=== PATIENT | male | born 1955 | race Caucasian/White ===

== ENCOUNTER 2016-03-26 12:25 | Emergency (ER) | payer BC ==
[2016-03-26] MEDS ORDERED: predniSONE 20 MG TABLET PO STA (15:09)
[2016-03-26] MEDS ORDERED: DOXYCYCLINE 100 MG TABLET PO STA (15:09)
[2016-03-26] MEDS ORDERED: DOXYCYCLINE 100 MG TABLET PO ONE (15:15)
[2016-03-26] MEDS ORDERED: predniSONE 20 MG TABLET ONE (15:15)
== END 2016-03-26 15:19 | disposition home or self-care (01) ==
DX: J18.9 Pneumonia, unspecified organism (principal); J44.9 Chronic obstructive pulmonary disease, unspecified; F17.200 Nicotine dependence, unspecified, uncomplicated; J45.909 Unspecified asthma, uncomplicated
CPT/HCPCS: 71020; 99283; 99284; A9270; J7512

== ENCOUNTER 2016-07-10 16:37 | Outpatient (CLI) | payer BC | END 2016-07-10 16:38 | disposition home or self-care (01) | DX: Z00.00 Encounter for general adult medical examination without abnormal findings (principal); Z12.5 Encounter for screening for malignant neoplasm of prostate; N40.1 Benign prostatic hyperplasia with lower urinary tract symptoms ==

== ENCOUNTER 2016-11-15 08:09 | Outpatient (CLI) | payer BC ==
--- NOTE | 2016-11-15 11:13 | XRAY Report ---
TWO VIEW CHEST: 11/15/2016 CLINICAL INDICATION: Nonspecific reaction to gamma Interferon. COMPARISON: 05/22/2016. FINDINGS: Frontal and lateral views of the chest demonstrate a normal cardiac silhouette. Extensive emphysematous changes with bibasilar fibrosis are stable, as are changes of old granulomatous disease . No new consolidation, effusion, or pneumothorax is evident. IMPRESSION: STABLE EMPHYSEMA AND FIBROSIS. NO EVIDENCE OF ACUTE CARDIOPULMONARY DISEASE. NO EVIDENCE OF ACTIVE TUBERCULOSIS. JOB #: [id number] EXT JOB #:[id number]
== END 2016-11-15 08:10 | disposition home or self-care (01) ==
LOC: DI.N 08:09
DX: R76.12 Nonspecific reaction to cell mediated immunity measurement of gamma interferon antigen response without active tuberculosis (principal); J43.9 Emphysema, unspecified; J84.10 Pulmonary fibrosis, unspecified
CPT/HCPCS: 71020

== ENCOUNTER 2017-05-15 08:00 | Outpatient (CLI) | payer BC ==
[2017-05-15 12:52] LABS: BASOPHILS # (AUTO) 0.1 10^3/uL (0.0-0.1); BASOPHILS % (AUTO) 0.9 %; EOSINOPHILS # (AUTO) 0.4 10^3/uL (0.0-0.7); EOSINOPHILS % (AUTO) 2.7 %; HGB - HEMOGLOBIN 16.8 g/dL (14.0-18.0); LYMPHOCYTES # (AUTO) 2.4 10^3/uL (1.5-3.5); LYMPHOCYTES % (AUTO) 16.4 %; MEAN CORPUSCULAR HGB CONC 33.7 g/dL (32.0-36.0); MEAN PLATELET VOLUME 8.2 fL (7.4-11.4); MONOCYTES # (AUTO) 1.6 10^3/uL (0.0-1.0); MONOCYTES % (AUTO) 11.1 %; NEUTROPHILS # (AUTO) 10.1 10^3/uL (1.5-6.6); NEUTROPHILS % (AUTO) 68.9 %; PLT - PLATELET COUNT 411 10^3/uL (130-450); RED BLOOD COUNT 5.61 10^6/uL (4.70-6.10); RED CELL DISTRIBUTION WIDTH 14.6 % (12.0-15.0); WHITE BLOOD COUNT 14.6 x10^3/uL (4.8-10.8)
[2017-05-15 14:03] LABS: ALBUMIN 4.5 g/dL (3.2-5.5); ALBUMIN/GLOBULIN RATIO 1.4 (1.0-2.2); ALKALINE PHOSPHATASE 66 IU/L (42-121); ALT ALANINE AMINOTRANSFERASE 19 IU/L (10-60); AST ASPARTATE AMINOTRANSFERASE 16 IU/L (10-42); BUN - BLOOD UREA NITROGEN 13 mg/dL (6-20); CALCIUM 9.2 mg/dL (8.5-10.3); CARBON DIOXIDE - CO2 25 mmol/L (21-32); CHLORIDE 101 mmol/L (101-111); CHOLESTEROL 227 mg/dL; CREATININE 0.8 mg/dL (0.6-1.2); GFR - MDRD 98 (>89); GLUCOSE 102 mg/dL (70-100); HDL CHOLESTEROL 57 mg/dL; LDL CHOLESTEROL,CALCULATED 147 mg/dL; LDL/HDL RATIO 2.6 (<3.6); SODIUM 136 mmol/L (135-145); TOTAL PROTEIN 7.7 g/dL (6.7-8.2); VLDL CHOLESTEROL 23 mg/dL
[2017-05-15 14:13] LABS: ABNORMAL LYMPHS % (MANUAL) 0 %; BAND NEUTROPHILS % (MANUAL) 0 %
[2017-05-15 14:28] LABS: BASOPHILS # (MANUAL) 0.1 10^3/uL (0-0.1); BASOPHILS % (MANUAL) 1 %; EOSINOPHILS # (MANUAL) 0.1 10^3/uL (0-0.7); LYMPHOCYTES # (MANUAL) 3.1 10^3/uL (1.5-3.5); LYMPHOCYTES % (MANUAL) 21 %; MONOCYTES # (MANUAL) 1.5 10^3/uL (0.0-1.0); NEUTROPHILS # (MANUAL) 9.8 10^3/uL (1.5-6.6); NEUTROPHILS % (MANUAL) 67 %; PLATELET ESTIMATE, MANUAL NORMAL (130-450,000) (NORMAL); PLATELET MORPHOLOGY NORMAL APPEARANCE (NORMAL); RBC MORPHOLOGY (MULTIPLE) NORMAL APPEARANCE (NORMAL)
== END 2017-05-15 08:01 | disposition home or self-care (01) ==
LOC: LAB.WCP 08:00
PROVIDERS: ATTEND Family Medicine
DX: Z00.00 Encounter for general adult medical examination without abnormal findings (principal); D72.829 Elevated white blood cell count, unspecified; R97.20 Elevated prostate specific antigen [PSA]
CPT/HCPCS: 36415; 80053; 80061; 83721; 84153; 85025

== ENCOUNTER 2017-06-15 08:00 | Outpatient (CLI) | payer BC ==
[2017-06-15 18:47] LABS: BASOPHILS # (AUTO) 0.1 10^3/uL (0.0-0.1); BASOPHILS % (AUTO) 1.3 %; EOSINOPHILS # (AUTO) 0.3 10^3/uL (0.0-0.7); EOSINOPHILS % (AUTO) 2.8 %; HGB - HEMOGLOBIN 16.4 g/dL (14.0-18.0); LYMPHOCYTES # (AUTO) 2.3 10^3/uL (1.5-3.5); LYMPHOCYTES % (AUTO) 21.7 %; MEAN CORPUSCULAR HEMOGLOBIN 29.6 pg (27.0-31.0); MEAN CORPUSCULAR HGB CONC 33.1 g/dL (32.0-36.0); MEAN CORPUSCULAR VOLUME 89.6 fL (80.0-94.0); MEAN PLATELET VOLUME 7.7 fL (7.4-11.4); MONOCYTES # (AUTO) 1.3 10^3/uL (0.0-1.0); MONOCYTES % (AUTO) 12.3 %; NEUTROPHILS # (AUTO) 6.7 10^3/uL (1.5-6.6); NEUTROPHILS % (AUTO) 61.9 %; PLT - PLATELET COUNT 382 10^3/uL (130-450); RED BLOOD COUNT 5.53 10^6/uL (4.70-6.10); RED CELL DISTRIBUTION WIDTH 14.9 % (12.0-15.0); WHITE BLOOD COUNT 10.8 x10^3/uL (4.8-10.8)
[2017-06-15 19:01] LABS: ALBUMIN 4.3 g/dL (3.2-5.5); ALBUMIN/GLOBULIN RATIO 1.4 (1.0-2.2); CREATININE 0.8 mg/dL (0.6-1.2); TOTAL PROTEIN 7.3 g/dL (6.7-8.2)
[2017-06-15 19:17] LABS: THYROID STIMULATING HORMONE 1.88 uIU/mL (0.34-5.60)
[2017-06-15 19:45] LABS: FOLLICLE STIMULATING HORMONE 2.86 mIU/mL
[2017-06-15 19:46] LABS: LUTEINIZING HORMONE 3.56 mIU/mL
== END 2017-06-15 08:01 | disposition home or self-care (01) ==
LOC: LAB.WCP 08:00
PROVIDERS: ATTEND Family Medicine
DX: F64.9 Gender identity disorder, unspecified (principal)
CPT/HCPCS: 36415; 80053; 82670; 83001; 83002; 84443; 85025

== ENCOUNTER 2017-08-20 08:00 | Outpatient (CLI) | payer BC ==
[2017-08-20 13:43] LABS: ALBUMIN 4.1 g/dL (3.2-5.5); ALBUMIN/GLOBULIN RATIO 1.2 (1.0-2.2); BILIRUBIN,TOTAL 0.6 mg/dL (0.2-1.0); CALCIUM 9.3 mg/dL (8.5-10.3); CREATININE 0.9 mg/dL (0.6-1.2); TOTAL PROTEIN 7.4 g/dL (6.7-8.2)
[2017-08-20 13:58] LABS: PSA TOTAL 6.25 ng/mL (0.000-2.000)
== END 2017-08-20 08:01 | disposition home or self-care (01) ==
LOC: LAB.WCP 08:00
PROVIDERS: ATTEND Family Medicine
DX: F64.9 Gender identity disorder, unspecified (principal); C61 Malignant neoplasm of prostate
CPT/HCPCS: 36415; 80053; 84153; 84403

== ENCOUNTER 2017-09-26 09:45 | Outpatient (CLI) | payer BC ==
--- NOTE | 2017-09-28 15:09 | Mammography Report ---
Procedure Date: 09/26/2017 Accession Number: [id number] / [id number] Procedure: KARLA - Screening Mammo Dig Bilat CPT Code: FULL RESULT: EXAM: Screening Mammo Dig Bilat DATE: 09/26/2017 10:00 AM CLINICAL HISTORY: 62-year-old male born patient with personal history of prostate cancer, lung disease at age 54, 10 years of steroid use, and 6 months of testosterone inhibitors currently undergoing gender reassignment with family history of breast cancer in the mother at age 40 presents for baseline mammogram. TECHNIQUE: Bilateral CC and MLO views were obtained. COMPARISON: None FINDINGS: The breasts demonstrate heterogeneously dense fibroglandular parenchyma bilaterally. Course typically benign bilateral calcifications are identified. No suspicious masses, clustered microcalcifications, or regions of architectural distortion are identified. IMPRESSION: Benign findings RECOMMENDATION: Routine annual screening unless otherwise clinically indicated. BIRADS CATEGORY 2: Benign findings STANDARD QUALIFYING STATEMENTS: 1. This examination was reviewed with the aid of Computer-Aided Detection (CAD). 2. A negative or benign imaging report should not delay biopsy if clinically suspicious findings are present. Consider surgical consultation if warrented. More than 5% of cancers are not identified by imaging. 3. Dense breasts may obscure an underlying neoplasm.
== END 2017-09-26 09:46 | disposition home or self-care (01) ==
LOC: DI 09:45
PROVIDERS: ATTEND Family Medicine
DX: Z12.31 Encounter for screening mammogram for malignant neoplasm of breast (principal); Z79.890 Hormone replacement therapy; Z78.9 Other specified health status; Z85.46 Personal history of malignant neoplasm of prostate
CPT/HCPCS: 77067

== ENCOUNTER 2018-02-20 08:00 | Outpatient (CLI) | payer BC ==
[2018-02-20 20:04] LABS: BASOPHILS # (AUTO) 0.1 10^3/uL (0.0-0.1); BASOPHILS % (AUTO) 0.8 %; EOSINOPHILS # (AUTO) 0.5 10^3/uL (0.0-0.7); EOSINOPHILS % (AUTO) 4.6 %; HGB - HEMOGLOBIN 15.4 g/dL (14.0-18.0); LYMPHOCYTES # (AUTO) 1.7 10^3/uL (1.5-3.5); LYMPHOCYTES % (AUTO) 14.6 %; MEAN CORPUSCULAR HEMOGLOBIN 30.8 pg (27.0-31.0); MEAN CORPUSCULAR HGB CONC 32.9 g/dL (32.0-36.0); MEAN CORPUSCULAR VOLUME 93.4 fL (80.0-94.0); MEAN PLATELET VOLUME 7.9 fL (7.4-11.4); MONOCYTES % (AUTO) 8.9 %; NEUTROPHILS # (AUTO) 8.3 10^3/uL (1.5-6.6); NEUTROPHILS % (AUTO) 71.1 %; PLT - PLATELET COUNT 377 10^3/uL (130-450); RED BLOOD COUNT 4.99 10^6/uL (4.70-6.10); RED CELL DISTRIBUTION WIDTH 14.2 % (12.0-15.0); WHITE BLOOD COUNT 11.7 x10^3/uL (4.8-10.8)
[2018-02-20 20:32] LABS: PSA TOTAL 8.41 ng/mL (0.000-2.000)
[2018-02-20 20:36] LABS: ALBUMIN 4.2 g/dL (3.2-5.5); ALBUMIN/GLOBULIN RATIO 1.6 (1.0-2.2); CALCIUM 9.1 mg/dL (8.5-10.3); TOTAL PROTEIN 6.9 g/dL (6.7-8.2)
== END 2018-02-20 23:59 | disposition home or self-care (01) ==
LOC: LAB.WCP 08:00
PROVIDERS: ATTEND Family Medicine
DX: R10.31 Right lower quadrant pain (principal); F64.9 Gender identity disorder, unspecified; C61 Malignant neoplasm of prostate
CPT/HCPCS: 36415; 80053; 82670; 84153; 84403; 85025

== ENCOUNTER 2018-02-28 10:39 | Outpatient (CLI) | payer BC ==
[2018-02-28] MEDS ORDERED: IOVERSOL 320 50 ML VIAL ONE (10:56)
[2018-02-28] MEDS ORDERED: IOVERSOL 320 100 ML VIAL IVP ONE ×2 (10:56→13:01)
[2018-02-28] MEDS ORDERED: IOVERSOL 320 50 ML VIAL PO ONE (13:01)
--- NOTE | 2018-02-28 19:53 | CT Report ---
Reason: ABDOMINAL PAIN, RLQ, PROSTATE CANCER Procedure Date: 02/28/2018 Accession Number: [id number] / [id number] Procedure: CT - Abdomen/Pelvis W/ CPT Code: FULL RESULT: EXAM: CT ABDOMEN AND PELVIS EXAM DATE: 02/28/2018 12:10 PM. CLINICAL HISTORY: Abdominal pain, right lower quadrant, prostate cancer. COMPARISONS: None. TECHNIQUE: Routine helical CT imaging was performed through the abdomen and pelvis. IV contrast: Optiray-320 90 mL. Enteric contrast: No. Reconstructions: Coronal and sagittal. In accordance with CT protocol optimization, one or more of the following dose reduction techniques were utilized for this exam: automated exposure control, adjustment of mA and/or KV based on patient size, or use of iterative reconstructive technique. FINDINGS: Lung Bases: Subpleural emphysematous changes seen at the lung bases. There is also left lower lobe atelectasis and/or scarring. Liver: Normal. No masses. Gallbladder/Bile Ducts: Gallstones noted without evidence of cholecystitis or bile duct obstruction. Spleen: Normal. Pancreas: Normal. Adrenal Glands: Normal. Kidneys: 7.2 cm cyst at the upper pole of the left kidney. Smaller cysts noted inferiorly. No suspicious renal mass or hydronephrosis. Peritoneal Cavity/Bowel: Large bowel diverticulosis without diverticulitis. No bowel obstruction, free air or fluid collections. No evidence of appendicitis. Pelvic Organs: Normal. The bladder and visualized pelvic organs are within normal limits. Vasculature: No aneurysms or other significant abnormality. Bones: No significant abnormality. Other: None. IMPRESSION: 1. Diverticulosis without diverticulitis. 2. Cholelithiasis. 3. No evidence of metastatic disease. RADIA
== END 2018-02-28 10:40 | disposition home or self-care (01) ==
LOC: DI 10:39
PROVIDERS: ATTEND Family Medicine
DX: K57.30 Diverticulosis of large intestine without perforation or abscess without bleeding (principal); K80.20 Calculus of gallbladder without cholecystitis without obstruction; R10.31 Right lower quadrant pain; C61 Malignant neoplasm of prostate
CPT/HCPCS: 74177; Q9967

== ENCOUNTER 2018-06-03 13:38 | Outpatient (CLI) | payer BC ==
[2018-06-03 19:12] LABS: TESTOSTERONE, TOTAL 19 ng/dL (350-720)
[2018-06-03 19:19] LABS: PSA TOTAL < 0.008 ng/mL (0.000-2.000)
== END 2018-06-03 13:39 | disposition home or self-care (01) ==
LOC: LAB.WCP 13:38
PROVIDERS: ATTEND Family Medicine
DX: Z79.890 Hormone replacement therapy (principal); C61 Malignant neoplasm of prostate
CPT/HCPCS: 36415; 82670; 84153; 84403

== ENCOUNTER 2018-08-21 07:34 | Day surgery (SDC) | payer BC ==
[2018-08-21] MEDS ORDERED: LACTATED RINGERS 1,000 ML IV ONE ×2 (08:00→10:18)
[2018-08-21] MEDS ORDERED: fentaNYL 250 MCG/5 ML VIAL IVP ONE (09:47)
[2018-08-21] MEDS ORDERED: MIDAZOLAM 2 MG/2 ML VIAL IVP ONE (09:47)
[2018-08-21 11:55] VITALS: BP 142/82
== END 2018-08-21 07:35 | disposition home or self-care (01) ==
LOC: SDS 07:34
PROVIDERS: ATTEND Surgery
PROC: 0DBN8ZZ Excision of Sigmoid Colon, Via Natural or Artificial Opening Endoscopic (ICD-10-PCS; 2018-08-21)
PROC: 0DBK8ZZ Excision of Ascending Colon, Via Natural or Artificial Opening Endoscopic (ICD-10-PCS; 2018-08-21)
PROC: 0DBL8ZZ Excision of Transverse Colon, Via Natural or Artificial Opening Endoscopic (ICD-10-PCS; 2018-08-21)
PROC: 0DBM8ZZ Excision of Descending Colon, Via Natural or Artificial Opening Endoscopic (ICD-10-PCS; 2018-08-21)
PROC: 0DBK8ZZ Excision of Ascending Colon, Via Natural or Artificial Opening Endoscopic (ICD-10-PCS; principal; 2018-08-21 08:45)
DX: Z12.11 Encounter for screening for malignant neoplasm of colon (principal); D12.2 Benign neoplasm of ascending colon; D12.4 Benign neoplasm of descending colon; D12.3 Benign neoplasm of transverse colon; K63.5 Polyp of colon; J44.9 Chronic obstructive pulmonary disease, unspecified; K43.2 Incisional hernia without obstruction or gangrene; F17.200 Nicotine dependence, unspecified, uncomplicated; Z85.46 Personal history of malignant neoplasm of prostate
CPT/HCPCS: 45380; 45385; J3010; J7120

== ENCOUNTER 2018-08-26 13:24 | Outpatient (CLI) | payer BC ==
[2018-08-26 19:13] LABS: TESTOSTERONE, TOTAL 13 ng/dL (350-720)
[2018-08-26 19:22] LABS: PSA TOTAL < 0.008 ng/mL (0.000-2.000)
== END 2018-08-26 13:25 | disposition home or self-care (01) ==
LOC: LAB.WCP 13:24
PROVIDERS: ATTEND Family Medicine
DX: C61 Malignant neoplasm of prostate (principal); F64.9 Gender identity disorder, unspecified; Z79.890 Hormone replacement therapy
CPT/HCPCS: 36415; 82670; 84153; 84403

== ENCOUNTER 2018-12-25 08:00 | Outpatient (CLI) | payer BC | END 2018-12-25 23:59 | disposition home or self-care (01) | LOC: LAB.R 08:00 | PROVIDERS: ATTEND Nurse Practitioner Family | DX: L03.311 Cellulitis of abdominal wall (principal) ==

== ENCOUNTER 2019-01-08 08:00 | Outpatient (CLI) | payer BC ==
[2019-01-08 19:00] LABS: BASOPHILS # (AUTO) 0.2 10^3/uL (0.0-0.1); BASOPHILS % (AUTO) 1.6 %; EOSINOPHILS # (AUTO) 0.5 10^3/uL (0.0-0.7); EOSINOPHILS % (AUTO) 4.3 %; LYMPHOCYTES # (AUTO) 1.7 10^3/uL (1.5-3.5); LYMPHOCYTES % (AUTO) 15.5 %; MEAN CORPUSCULAR HEMOGLOBIN 30.4 pg (27.0-31.0); MEAN CORPUSCULAR HGB CONC 32.2 g/dL (32.0-36.0); MEAN CORPUSCULAR VOLUME 94.3 fL (80.0-94.0); MEAN PLATELET VOLUME 9.9 fL (7.4-11.4); MONOCYTES # (AUTO) 1.2 10^3/uL (0.0-1.0); MONOCYTES % (AUTO) 11.3 %; NEUTROPHILS # (AUTO) 7.2 10^3/uL (1.5-6.6); NEUTROPHILS % (AUTO) 66.8 %; PLT - PLATELET COUNT 431 10^3/uL (130-450); RED BLOOD COUNT 4.94 10^6/uL (4.70-6.10); RED CELL DISTRIBUTION WIDTH 14.6 % (12.0-15.0); WHITE BLOOD COUNT 10.8 x10^3/uL (4.8-10.8)
[2019-01-08 19:15] LABS: ALBUMIN 4.5 g/dL (3.2-5.5); ALBUMIN/GLOBULIN RATIO 1.5 (1.0-2.2); BILIRUBIN,TOTAL 0.6 mg/dL (0.2-1.0); CALCIUM 8.9 mg/dL (8.5-10.3); TOTAL PROTEIN 7.5 g/dL (6.7-8.2)
[2019-01-08 19:23] LABS: TESTOSTERONE, TOTAL 59 ng/dL (350-720)
[2019-01-08 19:32] LABS: PSA SCREEN (Z12.5) < 0.008 ng/mL (0.000-2.000)
== END 2019-01-08 23:59 | disposition home or self-care (01) ==
LOC: LAB.WCP 08:00
PROVIDERS: ATTEND Family Medicine
DX: C61 Malignant neoplasm of prostate (principal); R60.9 Edema, unspecified; F64.9 Gender identity disorder, unspecified; Z79.890 Hormone replacement therapy
CPT/HCPCS: 36415; 80053; 82670; 84153; 84403; 85025

== ENCOUNTER 2019-01-22 15:05 | Outpatient (CLI) | payer BC ==
--- NOTE | 2019-01-22 16:52 | CT Report ---
Reason: SMOKER Procedure Date: 01/22/2019 Accession Number: [id number] / [id number] Procedure: CT - Low Dose Lung Cancer Screen CPT Code: Final Report FULL RESULT: EXAM CT LUNG SCREEN EXAM DATE: 01/22/2019 03:12 PM. HISTORY: 63-year-old male smoker with unspecified pack year smoking history. Lung cancer screening requested. COMPARISON: CHEST 04/09/2009 8:56 AM. TECHNIQUE: CT examination of the entire thorax without contrast was performed using low-dose technique. Thin section coronal, axial, sagittal and MIP axial images were obtained. In accordance with CT protocol optimization, one or more of the following dose reduction techniques were utilized for this exam: automated exposure control, adjustment of mA and/or KV based on patient size, or use of iterative reconstructive technique. FINDINGS: Nodules: Right upper lobe: None. Right middle lobe: None. Right lower lobe: None. Left upper lobe: None. Left lower lobe: None. Emphysema: Severe bullous emphysema present about the right greater than left upper lobes and to a lesser degree the lower lobes. No significant interval change. Pleura: No effusions or pneumothorax. A small left effusion seen previously has resolved. Aorta: Unremarkable. Mediastinum: No medicinal mass or adenopathy evident. There is narrowing of the mediastinum secondary to hyperinflation. Coronary calcifications: Minimal. Other pulmonary findings: Left great than right basilar peripheral scarring present similar to prior exam. Small peripheral scars are also present diffusely throughout the mean of the lungs as before. Other extrapulmonary findings: A small portion of the upper abdomen was visualized and demonstrates an enlarging cystic lesion of the left upper pole kidney measuring up to 6.9 cm increased from 2.5 cm previously. It measures approximately 22 Hounsfield units in density, slightly hyperdense as before. IMPRESSION: 1. Lung-RADS ASSESSMENT CATEGORY: 1 - negative. No concerning pulmonary nodules identified. Probability of malignancy: Less than 1%. 2. Severe bullous emphysema as before. 3. Interval resolution of small left pleural effusion. 4. Significant interval enlargement of partially visualized left upper pole cystic lesion from 2.5-6.9 cm. It is again mildly hyperdense. Further evaluation with renal ultrasound could be considered. RECOMMENDATION: Recommended follow up in 12 months based on ACR Lung-RADS Version 1.1 Guidelines. RADIA
== END 2019-01-22 15:06 | disposition home or self-care (01) ==
LOC: DI 15:05
PROVIDERS: ATTEND Family Medicine
DX: Z12.2 Encounter for screening for malignant neoplasm of respiratory organs (principal); J43.9 Emphysema, unspecified; N28.9 Disorder of kidney and ureter, unspecified; F17.210 Nicotine dependence, cigarettes, uncomplicated

== ENCOUNTER 2019-02-02 16:17 | Outpatient (CLI) | payer BC ==
--- NOTE | 2019-02-03 00:38 | Ultrasound Report ---
Reason: COMPLEX RENAL CYST Procedure Date: 02/02/2019 Accession Number: [id number] / [id number] Procedure: US - Retroperitoneal CPT Code: Final Report FULL RESULT: EXAM: RENAL ULTRASOUND EXAM DATE: 02/02/2019 05:18 PM. CLINICAL HISTORY: COMPLEX RENAL CYST. COMPARISON: None. TECHNIQUE: Real-time scanning was performed with static images obtained. FINDINGS: Right Kidney: 11.4 x 4.9 x 4.9 cm. Normal echotexture with no stones, contour-deforming masses, or hydronephrosis. Left Kidney: 15.3 x 5.9 x 5.4 cm. Normal echotexture. No suspicious masses. No hydronephrosis. Large cyst arising from the superior aspect of the left kidney measuring 6.3 x 5.9 x 6.7 cm. Inferomedial cyst with posterior acoustic enhancement measuring measuring 2.3 x 1.8 x 1.5 cm. Probable cyst at the inferior aspect of the left kidney measuring 1.5 x 1.2 x 1.3 cm which is somewhat obscured by overlying bowel gas. Bladder: Right ureteral jet identified. Left ureteral jet not seen. The prevoid bladder volume was 71.2 cc. The postvoid bladder volume was 0 cc. Other: None. IMPRESSION: 1. No acute findings including no evidence of hydronephrosis. 2. Multiple left renal cysts as detailed in the finding section of the report with the largest arising superior pole of the left kidney measuring 6.3 x 5.9 x 6.7 cm. 3. Left ureteral jet not identified. RADIA
== END 2019-02-02 16:18 | disposition home or self-care (01) ==
LOC: DI 16:17
PROVIDERS: ATTEND Family Medicine
DX: N28.1 Cyst of kidney, acquired (principal)
CPT/HCPCS: 76770

== ENCOUNTER 2019-06-06 13:42 | Outpatient (CLI) | payer MEDICARE ==
--- NOTE | 2019-06-06 16:43 | CT Report ---
Reason: CHRONIC SINUSITIS Procedure Date: 06/06/2019 Accession Number: [id number] / [id number] Procedure: CT - Sinuses CPT Code: Final Report FULL RESULT: EXAM: CT SINUS EXAM DATE: 06/06/2019 01:54 PM. HISTORY: CHRONIC SINUSITIS. COMPARISONS: None. TECHNIQUE: Routine multi-axial CT imaging performed through the sinuses. Iodinated IV contrast: None. Reconstructions: Multiplanar reformats. In accordance with CT protocol optimization, one or more of the following dose reduction techniques were utilized for this exam: automated exposure control, adjustment of mA and/or KV based on patient size, or use of iterative reconstructive technique. Findings: Relevant images are indicated (image number, series number). Floor of the anterior cranial fossa intact, nasal vault clear. Mild/moderate bilateral frontal right greater than left mucosal thickening, soft tissue/mucosal obstruction right frontal nasal duct. Patent bilateral ethmoidal infundibula. Nasal septum deviates to the right (53, 5), with small spur. Advanced degenerative changes of the bilateral mandibular condyles are present left worse than right. Patient is partially edentulous, minimal apical cyst right maxillary premolar (22, 3). Bilateral mastoid air cells are clear. There is no bony destructive or expansile process of the sinuses. Bony orbits appear unremarkable, orbital contents negative. There does appear to be prominent soft tissue/earwax present within the right external auditory canal (114, 5). Impressions: 1. Mild/moderate frontal sinuses mucosal thickening right greater than left, soft tissue obstruction right frontal nasal duct, no bony destructive or expansile process present. 2. Patent bilateral ethmoidal infundibulectomy on remaining paranasal sinuses appear clear. 3. Nasal septum mildly deviates the right with small spur. 4. Partially edentulous, small apical cyst as described. 5. Advanced degenerative changes bilateral mandibular condyles left worse than right. RADIA
== END 2019-06-06 13:43 | disposition home or self-care (01) ==
LOC: DI 13:42
PROVIDERS: ATTEND Family Medicine
DX: J32.9 Chronic sinusitis, unspecified (principal); J34.89 Other specified disorders of nose and nasal sinuses; J34.2 Deviated nasal septum; M19.91 Primary osteoarthritis, unspecified site; M27.40 Unspecified cyst of jaw
CPT/HCPCS: 70486

== ENCOUNTER 2019-09-18 18:54 | Emergency (ER) | payer MEDICARE ==
[2019-09-18] MEDS ORDERED: SODIUM CHLORIDE 0.9% 1,000 ML IV STA (19:02)
[2019-09-18] MEDS ORDERED: ONDANSETRON 4 MG/2 ML VIAL IVP STA (19:02)
[2019-09-18 19:17] LABS: BASOPHILS # (AUTO) 0.1 10^3/uL (0.0-0.1); BASOPHILS % (AUTO) 0.7 %; EOSINOPHILS # (AUTO) 0.1 10^3/uL (0.0-0.7); EOSINOPHILS % (AUTO) 0.5 %; HGB - HEMOGLOBIN 15.6 g/dL (14.0-18.0); LYMPHOCYTES % (AUTO) 5.1 %; MEAN CORPUSCULAR HEMOGLOBIN 30.4 pg (27.0-31.0); MEAN CORPUSCULAR HGB CONC 33.8 g/dL (32.0-36.0); MEAN CORPUSCULAR VOLUME 90.1 fL (80.0-94.0); NEUTROPHILS # (AUTO) 16.8 10^3/uL (1.5-6.6); PLT - PLATELET COUNT 413 10^3/uL (130-450); RED BLOOD COUNT 5.13 10^6/uL (4.70-6.10); RED CELL DISTRIBUTION WIDTH 14.1 % (12.0-15.0); WHITE BLOOD COUNT 19.1 x10^3/uL (4.8-10.8)
--- NOTE | 2019-09-18 19:25 | ED Physician Documentation ---
History of Present Illness - Stated complaint Stated Complaint: VOMIT/CHILLS - History obtained from History obtained from: Patient - History of Present Illness Timing: How many hours ago (6) Pain level max: 0 Pain level now: 0 - Additonal information Additional information: 64-year-old gentleman comes to the emergency department with chief complaint of uncontrolled vomiting that began about 6 hours ago. For the last 4 days he has been camping at [facility]. He reports that this morning he ate some banana pancakes that had been left out for probably 24 hours. He is the only individual in his camping group that ate the pancakes and he began vomiting earlier this afternoon. He denies any diarrhea. He endorses chills but no known fever. Past surgical history includes partial prostatectomy as well as an appendectomy. He does have a large midline ventral hernia that is known to the patient and is easily reducible. Past medical history includes COPD, active tobaccoism. He was also at 1 point in the process of transitioning from male to female. He remains on estrogen. Meds: estriadol, spiriva, proair, lasix, trazadone Review of Systems Constitutional: reports: Chills. denies: Fever Cardiac: denies: Chest pain / pressure, Palpitations Respiratory: reports: Dyspnea (at base line/ COPD). denies: Cough, Hemoptysis, Wheezing GI: reports: Nausea, Vomiting, Other (large reducible ventral hernia) : denies: Dysuria, Frequency Skin: denies: Rash, Lesions Neurologic: denies: Generalized weakness, Focal weakness, Syncope, Confused, Altered mental status, Headache, LOC PD PAST MEDICAL HISTORY - Past Medical History Cardiovascular: None Respiratory: Asthma, COPD Endocrine/Autoimmune: None GI: None : None HEENT: None Psych: None Musculoskeletal: None Derm: None - Past Surgical History Past Surgical History: Yes General: Appendectomy HEENT: Cataracts - Present Medications Home Medications: Ambulatory Orders Medication Instructions Recorded Confirmed Albuterol Sulfate [Proair Hfa] 2 puffs INH TID 02/11/15 10/02/17 Budesonide/Formoterol 80/4.5 1 puffs PO DAILY 03/26/16 10/02/17 [Symbicort] Tiotropium [place] [Spiriva] 1 puffs PO DAILY 01/15/17 07/24/18 estradioL [Estradiol] 1 tab PO DAILY 10/02/17 10/02/17 Ondansetron Odt [Zofran] 4 mg TL Q6H PRN #10 tablet 09/18/19 - Allergies Allergies/Adverse Reactions: Allergies Allergy/AdvReac Type Severity Reaction Status Date / Time No Known Drug Allergies Allergy Verified 09/18/19 19:07 - Social History Does the pt smoke?: Yes Smoking Status: Current every day smoker Does the pt drink ETOH?: No Does the pt have substance abuse?: No - Immunizations Immunizations are current?: Yes PD ED PE EXPANDED - General General: Alert, Anxious, In distress - Neck Neck: No: No tenderness - Cardiac Cardiac: Regular Rate, Radial strong equal, Femoral strong equal - Respiratory Respiratory: Clear to ausultation pari. No: Distress, Labored - Abdomen Abdomen: Normal Bowel sounds. No: Rebound, Guarding, Other (Very large midline ventral hernia easily reducible.Generalized nonfocal abdominal under nurse. No guarding rebound. Negative Grewal's.) - Back Back: Normal exam, Normal ROM. No: Vertebral tenderness, Soft tissue tenderness - Neuro Neuro: Alert and Oriented X 3. No: Confused, Disoriented, Lethargic - GCS Eye Opening: Spontaneous Motor: Obeys Commands Verbal: Oriented Total: 15 Results - Vitals Vitals: Vital Signs - 24 hr 09/18/19 09/18/19 19:05 19:28 Temperature 36.9 C Heart Rate 85 77 Respiratory 25 H Rate Blood Pressure 136/94 H 163/94 H O2 Saturation 96 96 Oxygen O2 Source Room air - EKG (time done) 2004 Rate: Rate (enter#) (82) Rhythm: NSR [place]: Normal Intervals: RBBB QRS: Normal Ischemia: Normal ST segments Compare to prior EKG: Old EKG unavailable - Labs Labs: Laboratory Tests 09/18/19 09/18/19 09/18/19 19:09 19:09 19:09 WBC 19.1 H RBC 5.13 Hgb 15.6 Hct 46.2 MCV 90.1 MCH 30.4 MCHC 33.8 RDW 14.1 Plt Count 413 MPV 9.0 Neut # (Auto) 16.8 H Lymph # (Auto) 1.0 L Mcmullen # (Auto) 1.0 Eos # (Auto) 0.1 Baso # (Auto) 0.1 Absolute Nucleated RBC 0.00 Nucleated RBC % 0.0 Sodium 136 Potassium 3.7 Chloride 100 L Carbon Dioxide 27 Anion Gap 9.0 BUN 18 Creatinine 0.8 Estimated GFR (MDRD) 97 Glucose 142 H Lactic Acid Calcium 9.4 Total Bilirubin 0.7 AST 14 ALT 14 Alkaline Phosphatase 59 Troponin I High Sens < 2.3 L Total Protein 7.5 Albumin 4.5 Globulin 3.0 Albumin/Globulin Ratio 1.5 Lipase 27 Urine Color Urine Clarity Urine pH Ur Specific [place] Urine Protein Urine Glucose (UA) Urine Ketones Urine Occult Blood Urine Nitrite Urine Bilirubin Urine Urobilinogen Ur Leukocyte Esterase Urine RBC Urine WBC Ur Squamous Epith Cells Urine Bacteria Urine Mucus Ur Microscopic Review Urine Culture Comments 09/18/19 09/18/19 19:09 19:55 WBC RBC Hgb Hct MCV MCH MCHC RDW Plt Count MPV Neut # (Auto) Lymph # (Auto) Mcmullen # (Auto) Eos # (Auto) Baso # (Auto) Absolute Nucleated RBC Nucleated RBC % Sodium Potassium Chloride Carbon Dioxide Anion Gap BUN Creatinine Estimated GFR (MDRD) Glucose Lactic Acid 1.2 Calcium Total Bilirubin AST ALT Alkaline Phosphatase Troponin I High Sens Total Protein Albumin Globulin Albumin/Globulin Ratio Lipase Urine Color DARK YELLOW Urine Clarity CLEAR Urine pH 5.5 Ur Specific [place] >=1.030 H Urine Protein 30 H Urine Glucose (UA) NEGATIVE Urine Ketones 15 H Urine Occult Blood NEGATIVE Urine Nitrite NEGATIVE Urine Bilirubin NEGATIVE Urine Urobilinogen 1 (NORMAL) Ur Leukocyte Esterase NEGATIVE Urine RBC 0-5 Urine WBC 0-3 Ur Squamous Epith Cells MANY Squamous H Urine Bacteria Few Urine Mucus Few Strands Ur Microscopic Review INDICATED Urine Culture Comments NOT INDICATED PD MEDICAL DECISION MAKING - ED course Complexity details: reviewed results, re-evaluated patient, considered differential, d/w patient ED course: 64-year-old gentleman comes to the emergency department with acute onset of nausea and vomiting that began this afternoon. Patient reports that he has been camping in the preceding days and ate a pancake that had been left out overnight. - Labs evaluated in full. He does have an elevated white count however in the setting of acute vomiting and no other source of infection I feel this is likely marginalization. His LFTs are reassuring. He is got no transaminase or T bili elevation. He has no focal right upper quadrant abdominal pain my suspicion for acute cholecystitis or cholelithiasis is very low. - H edoes have a noted large midlien ventral hernia. however it is easily reducible and shows no sign of incarceration - His EKG is nonischemic and his troponin is negative. I doubt acs - I feel that his symptoms are most consistent with an acute foodborne or viral enteritis. Patient was repleted with 1 L of IV fluids in the emergency department and initially given zofran which quickly resolved his nausea. However after approximately 30 minutes, pt began to vomit and dry heave again,therefore compazine was ordered. It should be noted that pt has a very violent, forceful wretching vomiting episode. Following the Compazine patient remained free of nausea and vomiting. He was able to drink a clear soda in the emergency department. - I discussed at length his laboratory findings.Prescription for Zofran overnight in the emergency department Will be discharged home with a and a prescription to fill tomorrow. Emergent return precautions discussed for worsening symptoms. - Departure - Departure Disposition: 01 Home, Self Care Clinical Impression: Vomiting Qualifiers: Vomiting type: unspecified Vomiting Intractability: non-intractable Nausea presence: with nausea Qualified Code(s): R11.2 - Nausea with vomiting, unspecified Ventral hernia Qualifiers: Obstruction and gangrene presence: without obstruction or gangrene Qualified Code(s): K43.9 - Ventral hernia without obstruction or gangrene Condition: Stable Instructions: ED Nausea Vomiting Follow-Up: Maximo Welch DO [Primary Care Provider] - Within 1 week Prescriptions: Ondansetron Odt [Zofran] 4 mg TL Q6H PRN #10 tablet PRN Reason: Nausea / Vomiting Comments: Francisco I am glad you are feeling better. I think the vomiting is due to eating food that was left out too long. Please fill the prescription for the Zofran in the morning. Overnight to try drinking frequent sips of water, broth or juice. Your labs today look pretty normal. You are not having a heart attack. And your liver tests do not show any signs of stress. I do not think this is your gallbladder. Please follow-up very closely with your primary care doctor next week to discuss this ED visit. Return here if your vomiting is not controlled, you are excessively dehydrated, or weak.
[2019-09-18 19:27] LABS: ALBUMIN 4.5 g/dL (3.2-5.5); ALBUMIN/GLOBULIN RATIO 1.5 (1.0-2.2); BILIRUBIN,TOTAL 0.7 mg/dL (0.2-1.0); CALCIUM 9.4 mg/dL (8.5-10.3); CREATININE 0.8 mg/dL (0.6-1.2); TOTAL PROTEIN 7.5 g/dL (6.7-8.2)
[2019-09-18] MEDS ORDERED: PROCHLORPERAZINE 10 MG/2 ML VIAL IVP STA (19:53)
[2019-09-18 20:10] LABS: GLUCOSE, URINE (UA) NEGATIVE (NEGATIVE); KETONES,URINE (UA) 15 mg/dL (NEGATIVE); LEUKOCYTE ESTERASE, URINE NEGATIVE (NEGATIVE); NITRITE,URINE NEGATIVE (NEGATIVE); OCCULT BLOOD,URINE NEGATIVE (NEGATIVE); PH,URINE 5.5 PH (5.0-7.5); PROTEIN,URINE 30 mg/dL (NEGATIVE); UROBILINOGEN,URINE 1 (NORMAL) E.U./dL (NORMAL)
[2019-09-18 20:18] LABS: BILIRUBIN,URINE NEGATIVE (NEGATIVE); CLARITY,URINE CLEAR (CLEAR); ICTOTEST,URINE NEGATIVE
[2019-09-18 20:31] LABS: BACTERIA,URINE Few /HPF (None Seen); MUCUS,URINE Few Strands; RBC,URINE 0-5 /HPF (0-5); SQUAMOUS EPITHELIAL CELL,UR MANY Squamous (<= Few)
[2019-09-18] MEDS ORDERED: ONDANSETRON ODT 4 MG TABLET TL STA (20:57)
[2019-09-18] MEDS ORDERED: ONDANSETRON ODT 4 MG Prepack 2 TL PRN (20:59)
[2019-09-18 21:08] VITALS: BP 163/88
== END 2019-09-18 21:09 | disposition home or self-care (01) ==
LOC: ED 18:54
DX: R11.2 Nausea with vomiting, unspecified (principal); K43.9 Ventral hernia without obstruction or gangrene; J44.9 Chronic obstructive pulmonary disease, unspecified; F17.200 Nicotine dependence, unspecified, uncomplicated
CPT/HCPCS: 36415; 80053; 81001; 81003; 83605; 83690; 84484; 85025; 87086; 93005; 96361; 96374; 96375; 99284

== ENCOUNTER 2019-10-29 15:07 | Outpatient (CLI) | payer MEDICARE ==
[2019-10-29 15:15] LABS: ABNORMAL LYMPHS % (MANUAL) 0 %; BAND NEUTROPHILS % (MANUAL) 0 %
[2019-10-29 18:45] LABS: BASOPHILS % (AUTO) 1.1 %; EOSINOPHILS % (AUTO) 3.4 %; HGB - HEMOGLOBIN 14.6 g/dL (14.0-18.0); LYMPHOCYTES % (AUTO) 25.5 %; MEAN CORPUSCULAR HGB CONC 32.8 g/dL (32.0-36.0); MEAN CORPUSCULAR VOLUME 91.4 fL (80.0-94.0); MEAN PLATELET VOLUME 9.7 fL (7.4-11.4); MONOCYTES % (AUTO) 11.7 %; NEUTROPHILS % (AUTO) 57.9 %; PLT - PLATELET COUNT 461 10^3/uL (130-450); RED BLOOD COUNT 4.87 10^6/uL (4.70-6.10); RED CELL DISTRIBUTION WIDTH 14.3 % (12.0-15.0)
[2019-10-29 19:13] LABS: ALBUMIN 4.4 g/dL (3.2-5.5); ALBUMIN/GLOBULIN RATIO 1.5 (1.0-2.2); BILIRUBIN,TOTAL 1.1 mg/dL (0.2-1.0); CALCIUM 9.3 mg/dL (8.5-10.3); CREATININE 0.8 mg/dL (0.6-1.2); TOTAL PROTEIN 7.3 g/dL (6.7-8.2)
[2019-10-29 19:53] LABS: EOSINOPHILS # (MANUAL) 0.1 10^3/uL (0-0.7); LYMPHOCYTES # (MANUAL) 1.9 10^3/uL (1.5-3.5); LYMPHOCYTES % (MANUAL) 19 %; MONOCYTES # (MANUAL) 1.5 10^3/uL (0.0-1.0)
[2019-10-29 20:00] LABS: PLATELET ESTIMATE, MANUAL INCREASED (>450,000) (NORMAL); PLATELET MORPHOLOGY NORMAL APPEARANCE (NORMAL); RBC MORPHOLOGY (MULTIPLE) NORMAL APPEARANCE (NORMAL)
[2019-10-29 20:01] LABS: DIFFERENTIAL COMMENT MANUAL DIFFERENTIAL
[2019-10-29 20:03] LABS: WHITE BLOOD COUNT 9.9 x10^3/uL (4.8-10.8)
== END 2019-10-29 23:59 | disposition home or self-care (01) ==
LOC: LAB.WCP 15:07
PROVIDERS: ATTEND Family Medicine
DX: D47.3 Essential (hemorrhagic) thrombocythemia (principal); D72.829 Elevated white blood cell count, unspecified
CPT/HCPCS: 36415; 80053; 81599; 85025; 88184; 88185; 88189

== ENCOUNTER 2019-12-17 08:00 | Outpatient (CLI) | payer MEDICARE | END 2019-12-17 23:59 | disposition home or self-care (01) | LOC: LAB.R 08:00 | PROVIDERS: ATTEND Family Medicine | DX: R05 Cough (principal); Z20.828 Contact with and (suspected) exposure to other viral communicable diseases ==

== ENCOUNTER 2020-01-15 10:16 | Outpatient (CLI) | payer MEDICARE ==
--- NOTE | 2020-01-15 13:09 | CT Report ---
PROCEDURE: Low Dose Lung Cancer Screen INDICATIONS: NICOTINE ABUSE/DEPENDENCE TECHNIQUE: Noncontrast low-dose 5 mm thick sections acquired from the pulmonary apices to the posterior costophr enic angles. 7 mm thick coronal and sagittal MIP reformats were then acquired. For radiation dose r eduction, the following was used: automated exposure control, adjustment of mA and/or kV according t o patient size. COMPARISON: None. FINDINGS: Image quality: Excellent. Lungs and pleura: Severe apical predominant emphysema, with bullous change in the right greater than left lung apices. There is mild posterior dependent atelectasis bilaterally (versus scarring). No isaac spicious lung nodule or mass. Mediastinum: Heart size is normal. No pericardial effusion. No mediastinal adenopathy by size crit eria. Thoracic aorta and central pulmonary arteries are normal in size. Esophagus is normal in [place]. No hiatal hernia. Bones and chest wall: No suspicious bony lesions. No vertebral body compression fractures. No axil lydia or supraclavicular adenopathy by size criteria. The thyroid is normal in size. Abdomen: Incidentally noted approximately 7.6 cm solid left renal mass highly suspicious for neoplasm , projecting exophytically from the left upper pole kidney. Ventral hernia also seen in the upper abd omen containing a short knuckle of colon, with fascial defect measuring approximately 7 cm. IMPRESSION: No suspicious lung nodule or mass. Approximately 7.6 cm solid left renal mass, highly suspicious for renal cell carcinoma. Immediate fol low-up renal protocol CT of the abdomen and pelvis with IV contrast recommended. Biopsy or surgical r emoval is very likely to ultimately be recommended. Reviewed by: Kimo Estrada MD on 01/15/2020 1:08 PM PST Approved by: Kimo Estrada MD on 01/15/2020 1:08 PM PST Station ID: [id number]
== END 2020-01-15 10:17 | disposition home or self-care (01) ==
LOC: DI 10:16
PROVIDERS: ATTEND Family Medicine
DX: Z12.2 Encounter for screening for malignant neoplasm of respiratory organs (principal); J43.9 Emphysema, unspecified; N28.89 Other specified disorders of kidney and ureter; F17.210 Nicotine dependence, cigarettes, uncomplicated

== ENCOUNTER 2020-01-19 13:57 | Outpatient (CLI) | payer MEDICARE ==
[2020-01-19 14:31] LABS: CREATININE 0.9 mg/dL (0.6-1.2)
[2020-01-19] MEDS ORDERED: IOVERSOL 320 100 ML VIAL IVP ONE (14:49)
[2020-01-19] MEDS: IOVERSOL 320 100 ML VIAL IVP ONE (17:04)
--- NOTE | 2020-01-19 17:10 | CT Report ---
PROCEDURE: ABDOMEN/PELVIS W/WO INDICATIONS: RENAL MASS, SMOKER CONTRAST: IV CONTRAST: Optiray 320 ml: 140 PO CONTRAST: *NO PO CONTRAST TECHNIQUE: After the administration of intravenous contrast, 5 mm thick sections acquired from the diaphragms to the symphysis. 5 mm thick coronal and sagittal reformats were acquired. For radiation dose reducti on, the following was used: automated exposure control, adjustment of mA and/or kV according to nisha ent size. COMPARISON: None. FINDINGS: Image quality: Excellent. Lung bases: Lung bases are clear. Heart size is normal. Urinary system: Both kidneys are normal in size, without hydronephrosis or nephrolithiasis on pre-co ntrast images. There is a rounded structure exophytic from the upper pole of the left kidney which m easures 12.4 Hounsfield units, and represents the area of prior noncontrast CT concern. On arterial p hase of contrast enhancement this structure measures 13.7 Hounsfield units, and on delayed "washout" phase of the study measures 15.11 Hounsfield units. These changes do not represent significant price changer time, and generally are thought to represent "beam hardening artifact". Several additional smal l water density simple left renal cortical cysts are also noted. No perinephric fat stranding. There is normal bilateral renal enhancement. Renal calyces appear normal in morphology when filled with c ontrast. Opacified portions of both ureters demonstrate normal caliber. Bladder wall thickness is n ormal. No calcified bladder stones. Other solid organs: Liver and spleen are normal in size and enhancement. There is a subcentimeter hy podensity showing no enhancement at the posterior subcapsular margin of the right posterior hepatic s egment (series 6 image 33) requiring no follow-up. Gallbladder appears normal Biliary system is non dilated. Pancreas enhances normally. No adrenal nodules. Peritoneum and bowel: Bowel loops demonstrate normal wall thickness and caliber. No free fluid or a ir. Nodes and vessels: No retroperitoneal or mesenteric adenopathy by size criteria. Aorta and inferior vena cava are normal in size. Abdominal wall: No ventral hernias but there is a relatively prominent ventral eventration with exte nsion of large and small bowel anterior to the plane of the rectus musculature, with overlying perito mary encasement.. Pelvis: No pathologic free pelvic fluid. No inguinal hernias or adenopathy. Bones: No suspicious bony lesions. No vertebral body compression fractures. IMPRESSION: 1. With benefit of three-phase renal cortical protocol CT scanning the exophytic masslike structure p rojecting cephalad from the left kidney is found to represent a prominent renal cortical cyst, simple in character, with internal radiodensity measuring slightly above that of water (likely indicating i nternal mild proteinaceous content) and no malignancy is suspected. 2. Prominent ventral eventration through the midline rectus musculature by large and small bowel cont ained within the peritoneum, showing no sign of incarceration or strangulation. Reviewed by: Duncan Tyson MD on 01/19/2020 5:08 PM PST Approved by: Duncan Tyson MD on 01/19/2020 5:08 PM PST Station ID: [id number]
== END 2020-01-19 13:58 | disposition home or self-care (01) ==
LOC: DI 13:57
PROVIDERS: ATTEND Family Medicine
DX: N28.1 Cyst of kidney, acquired (principal); K43.9 Ventral hernia without obstruction or gangrene
CPT/HCPCS: 36415; 74178; 82565; Q9967

== ENCOUNTER 2020-03-29 09:42 | Outpatient (CLI) | payer MEDICARE ==
[2020-03-29 12:34] LABS: BASOPHILS # (AUTO) 0.1 10^3/uL (0.0-0.1); BASOPHILS % (AUTO) 1.1 %; EOSINOPHILS # (AUTO) 0.4 10^3/uL (0.0-0.7); EOSINOPHILS % (AUTO) 2.9 %; LYMPHOCYTES # (AUTO) 3.2 10^3/uL (1.5-3.5); LYMPHOCYTES % (AUTO) 25.1 %; MEAN CORPUSCULAR HEMOGLOBIN 31.3 pg (27.0-31.0); MEAN CORPUSCULAR HGB CONC 33.9 g/dL (32.0-36.0); MEAN CORPUSCULAR VOLUME 92.2 fL (80.0-94.0); MEAN PLATELET VOLUME 9.8 fL (7.4-11.4); MONOCYTES # (AUTO) 1.3 10^3/uL (0.0-1.0); MONOCYTES % (AUTO) 10.2 %; NEUTROPHILS # (AUTO) 7.6 10^3/uL (1.5-6.6); NEUTROPHILS % (AUTO) 60.4 %; PLT - PLATELET COUNT 409 10^3/uL (130-450); RED BLOOD COUNT 5.12 10^6/uL (4.70-6.10); RED CELL DISTRIBUTION WIDTH 14.3 % (12.0-15.0); WHITE BLOOD COUNT 12.6 x10^3/uL (4.8-10.8)
[2020-03-29 12:50] LABS: ALBUMIN/GLOBULIN RATIO 1.5 (1.0-2.2); ALKALINE PHOSPHATASE 55 IU/L (42-121); ALT ALANINE AMINOTRANSFERASE 14 IU/L (10-60); AST ASPARTATE AMINOTRANSFERASE 12 IU/L (10-42); BILIRUBIN,TOTAL 0.7 mg/dL (0.2-1.0); BUN - BLOOD UREA NITROGEN 15 mg/dL (6-20); CALCIUM 9.3 mg/dL (8.5-10.3); CARBON DIOXIDE - CO2 28 mmol/L (21-32); CHLORIDE 102 mmol/L (101-111); CHOL/HDL RATIO 2.7 (<5.0); CHOLESTEROL 207 mg/dL; CREATININE 0.9 mg/dL (0.6-1.2); GLUCOSE 104 mg/dL (70-100); HDL CHOLESTEROL 78 mg/dL; LDL CHOLESTEROL,CALCULATED 103 mg/dL; LDL/HDL RATIO 1.3 (<3.6); SODIUM 138 mmol/L (135-145); TOTAL PROTEIN 6.7 g/dL (6.7-8.2); VLDL CHOLESTEROL 26 mg/dL
== END 2020-03-29 09:43 | disposition home or self-care (01) ==
LOC: LAB.N 09:42
PROVIDERS: ATTEND Family Medicine
DX: Z00.00 Encounter for general adult medical examination without abnormal findings (principal); D47.3 Essential (hemorrhagic) thrombocythemia; D72.829 Elevated white blood cell count, unspecified; R60.9 Edema, unspecified; Z79.890 Hormone replacement therapy; F64.9 Gender identity disorder, unspecified; C61 Malignant neoplasm of prostate
CPT/HCPCS: 36415; 80053; 80061; 82670; 84403; 85025; G0103; 83721; 84153

== ENCOUNTER 2020-08-05 08:00 | Outpatient (CLI) | payer MEDICARE ==
[2020-08-05 17:59] LABS: HGB - HEMOGLOBIN 15.2 g/dL (14.0-18.0); MEAN CORPUSCULAR HEMOGLOBIN 31.3 pg (27.0-31.0); MEAN CORPUSCULAR VOLUME 94.8 fL (80.0-94.0); MEAN PLATELET VOLUME 10.1 fL (7.4-11.4); RED BLOOD COUNT 4.85 10^6/uL (4.70-6.10); RED CELL DISTRIBUTION WIDTH 14.4 % (12.0-15.0); WHITE BLOOD COUNT 14.7 x10^3/uL (4.8-10.8)
[2020-08-05 18:23] LABS: ALBUMIN 4.2 g/dL (3.2-5.5); ALBUMIN/GLOBULIN RATIO 1.4 (1.0-2.2); BILIRUBIN,TOTAL 0.7 mg/dL (0.2-1.0); CALCIUM 9.2 mg/dL (8.5-10.3); POTASSIUM 3.8 mmol/L (3.5-5.0); TOTAL PROTEIN 7.2 g/dL (6.7-8.2)
== END 2020-08-05 23:59 | disposition home or self-care (01) ==
LOC: LAB.WCP 08:00
PROVIDERS: ATTEND Family Medicine
DX: R06.09 Other forms of dyspnea (principal)
CPT/HCPCS: 36415; 80053; 82977; 83880; 85027

== ENCOUNTER 2020-12-01 13:15 | Outpatient (CLI) | payer MEDICARE | END 2020-12-01 13:16 | disposition home or self-care (01) | LOC: LAB.N 13:15 | PROVIDERS: ATTEND Family Medicine | DX: U07.1 COVID-19 (principal) ==

== ENCOUNTER 2020-12-01 14:57 | Outpatient (CLI) | payer MEDICARE ==
--- NOTE | 2020-12-01 15:57 | XRAY Report ---
PROCEDURE: Chest 2 View X-Ray INDICATIONS: COPD, ACUTE EXACERBATION TECHNIQUE: 2 view(s) of the chest. COMPARISON: Screening CT of chest dated 01/15/2020, 01/22/2019 and chest radiograph dated 11/15/2016. FINDINGS: Surgical changes and devices: None. Lungs and pleura: No pleural effusions or pneumothorax. Chronic appearing scarring/atelectasis in bi lateral lower lung saucedo are again seen. Bilateral hyperinflation is again seen. Bullous disease in right upper lung field is again noted. No definite focal infiltrate. Mediastinum: Mediastinal contours are normal. Heart size is normal. Bones and chest wall: No suspicious bony abnormalities. Soft tissues appear unremarkable. IMPRESSION: COPD and chronic lung parenchymal disease with prominent bilateral lower lung field scar ring/atelectasis. No focal infiltrate, pleural effusion or pneumothorax. Reviewed by: Familia Garcia MD on 12/01/2020 3:56 PM PDT Approved by: Familia Garcia MD on 12/01/2020 3:56 PM PDT Station ID: [id number]
== END 2020-12-01 23:59 | disposition home or self-care (01) ==
LOC: DI.N 14:57
PROVIDERS: ATTEND Family Medicine
DX: J44.1 Chronic obstructive pulmonary disease with (acute) exacerbation (principal); U07.1 COVID-19
CPT/HCPCS: 71046; U0004

== ENCOUNTER 2021-01-12 12:56 | Outpatient (CLI) | payer MEDICARE ==
--- NOTE | 2021-01-12 14:00 | SLEEP CARE CONSULTATION ---
Information from patient questionnaire entered by Teagan Yung MA. I have reviewed and concur with the information entered by Teagan Yung MA. This document represents the service I personally performed and the decisions made by me, Jody Rosales ARNP. History of Present Illness Service Date and Time: 01/12/2021 1256 Reason for Visit: New patient Chief Complaint: reports: Unrefreshed sleep, Snoring, Excessive daytime sleepiness, Fatigue, Frequent awakenings at night Date of Onset: 2 - 4 years Usual bedtime: 1 am Time it takes to fall asleep: forever; varies if he has alcohol or medications Snores at night: Yes Observed to quit breathing while asleep: No Sleeps alone due to snoring: No Number of times waking at night: 2 - 3 Reasons for waking at night: reports: Gasping for air, Bathroom, Other (dreams) Toss, Turn, or Twitch while sleeping: Yes Recalls having dreams: Yes (remembers having but not what they are) Usually gets out of bed at: 9 - 10 Feels refreshed in the morning: Yes (sometimes) Morning headache: No Sleepy or fatigued during the day: Yes Ever fallen asleep while driving: No Takes day naps: Yes (usually every afternoon) Dreams during day naps: Yes Prior sleep studies: No Additional HPI information: I had the pleasure of seeing FABIANO CARMEN today regarding the possibility of him having a sleep disorder. His current complaints are excessive daytime sleepiness, fatigue, frequent night awakenings and unrefreshed sleep. He does not know if he snore but he has been told by some people that he does snore. He states that he will wake up gasping for air at night but this is due to his COPD because he needs to cough up phlegm. He does not wake up feeling rested most days because he wakes up frequently during the night. His 5 years ago, he was diagnosed with cancer and he was drinking a lot before going to bed. His PCP treated him for depression and he is drinking alcohol less. He has a history of COPD and prostate cancer. 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 Patient is / and lives in . Have you smoked in the past 12 months: Yes Cigarettes per day (20/pack): 20 Years of smokin Smoking Pack Years: 50.0 Alcohol use: Yes Alcohol amount and frequency: 1 pint per day Caffeine use: Yes Caffeine amount and frequency: 2 to 3 cups daily Family History Family history of sleep disordered breathing: No Allergies and Home Medications Drug allergies reviewed: Yes (NKDA) Home medication list reviewed: Yes Allergy and home medication list: Vitamin C Vitamin E Magnesium Vitamin D3 B Complex Melatonin, nightly Potassium Prednisone Citirizine Furosemide Estradiol Trazadone Spiriva Sertraline Symbicort Ipatroprium inhaler, prn Albuterol in haler, prn Review of Systems Cardiovascular: denies: high blood pressure Respiratory: reports: shortness of breath, wheeze, sputum production, chronic cough, other (copd) Gastrointestinal: reports: nausea Urinary: reports: incontinence Neurological: denies: headaches Psychiatric: reports: depression. denies: anxiety, mood disorder Ear/Nose/Throat: reports: nasal congestion, wisdom teeth removed. denies: tonsillectomy Physical Exam Blood Pressure: 142/82 (left) Cuff size: long Heart Rate: 83 O2 Saturation: 95 Height: 6 ft 1 in Weight: 215 lb Body Mass Index: 28.3 BMI Classification: Overweight Neck circumference: 18 (inches) Mouth and throat: narrow oropharynx Soft palate: long Hard palate: normal Uvula: normal Uvula visualization: 50% Mallampati Class II Tongue: enlarged in size with teeth baumann on lateral edges Tonsils: small Neck: normal w/o lymphadenopathy or thyromegaly Heart: regular rate and rhythm Lungs: clear bilaterally Impression and Plan 1. Suspected Obstructive Sleep Apnea-Hypopnea Syndrome, as suggested by a history of loud and irregular snoring, gasping or choking in sleep, frequent awakening during the night, unrefreshed sleep, and excessive daytime sleepiness. Narrow oropharynx and obesity are common predisposing factors for obstructive sleep apnea-hypopnea syndrome. I recommend proceeding to polysomnography to confirm the diagnosis and to assess severity. If the patient has significant sleep disordered breathing, a manual CPAP titration study will also be performed to find the optimal treatment pressure. I informed the patient of what the sleep studies involve and after some discussion, obtained agreement to proceed. The pathophysiology of obstructive sleep apnea-hypopnea syndrome was discussed with the patient and health risks of cardiovascular and cerebrovascular disease if not treated. 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 Patient agreed to plan. * Schedule polysomnography +- manual CPAP titration study and return in 1-2 weeks after the study to discuss result and initiate therapy. * Avoid long distance driving or driving when feeling sleepy. * Avoid alcohol, sedative and muscle relaxant around bedtime. * Attempt to lose weight. * Review instructions provided by trained office staff on how to prepare for the sleep study. * Return for follow-up after sleep study completed. Counseling Topics: Weight loss health impact Visit Type: In Office Time Spent with Patient (minutes): 32 Provider Statement: I spent 100% of the Face to Face Visit with the patient with greater than 50% spent counseling the patient and coordination of care.
[2021-01-12 14:01] VITALS: BP 142/82
== END 2021-01-12 12:57 | disposition home or self-care (01) ==
LOC: SC 12:56
PROVIDERS: ATTEND Nurse Practitioner Family
DX: G47.10 Hypersomnia, unspecified (principal); G47.8 Other sleep disorders; R06.83 Snoring
CPT/HCPCS: 99203; G0463; 99212

== ENCOUNTER 2021-01-14 15:20 | Outpatient (CLI) | payer MEDICARE, MEDICAID ==
--- NOTE | 2021-01-14 15:55 | XRAY Report ---
PROCEDURE: Chest 2 View X-Ray INDICATIONS: COUGH TECHNIQUE: 2 view(s) of the chest. COMPARISON: December 01, 2020. FINDINGS: SUPPORT DEVICES: None. LUNGS/PLEURA: Biapical pleural thickening/scarring. Upper lung zone lucency, compatible with emphysem a change. Bibasilar densities, which may reflect pulmonary edema versus chronic interstitial change. No focal consolidation, pleural effusion or space-occupying pneumothorax. MEDIASTINUM: The cardiomediastinal silhouette is within normal limits. BONES/SOFT TISSUES: No acute abnormality. IMPRESSION: 1.Pulmonary edema versus chronic interstitial change. Reviewed by: Shelton Cedeno MD on 01/14/2021 3:53 PM PDT Approved by: Shelton Cedeno MD on 01/14/2021 3:53 PM PDT Station ID: [id number]
== END 2021-01-14 23:59 | disposition home or self-care (01) ==
LOC: DI.N 15:20
PROVIDERS: ATTEND Physician Assistant
DX: R05.9 Cough, unspecified (principal); R91.8 Other nonspecific abnormal finding of lung field

== ENCOUNTER 2021-01-14 17:13 | Outpatient (CLI) | payer MEDICARE | END 2021-01-14 17:14 | disposition critical access hospital (66) | LOC: EMS 17:13 | DX: R06.02 Shortness of breath (principal) | CPT/HCPCS: A0425; A0429 ==

== ENCOUNTER 2021-01-14 17:39 | Inpatient (IN) | payer MEDICARE ==
[2021-01-14] MEDS ORDERED: ALBUTEROL 1 PUFF INH STA (18:00)
[2021-01-14 18:19] LABS: BASOPHILS % (AUTO) 0.5 %; EOSINOPHILS # (AUTO) 0.1 10^3/uL (0.0-0.7); EOSINOPHILS % (AUTO) 0.5 %
--- NOTE | 2021-01-14 18:20 | ED Physician Documentation ---
History of Present Illness - Stated complaint Stated Complaint: SOA - Chief complaint Chief Complaint: Resp - Additonal information Additional information: 65-year-old male who has a history of COPD presents to the emergency department for evaluation of dyspnea and hypoxia. He is an active daily tobacco user consuming about 1/3 pack/day. This gentleman is not vaccinated for COVID-19 and did have Covid infection late November. This patient Reports that for the last 3 to 4 days he has had increasing dyspnea especially with exertion. He has had a cough but it is mostly dry. He is using his inhalers at home without relief of symptoms. This gentleman has not had any fevers. He denies chest pain or leg swelling. He did go to a local walk-in clinic where he was noted to be hypoxic on room air 86%. He was given 40 mg of prednisone but given the hypoxia advised to come to the ER. On initial presentation here he is on 4 to 5 L nasal cannula. Saturating 97%. However he is dyspneic and somewhat tripoding. He is alert answering all questions. Review of Systems Constitutional: denies: Fever, Chills Eyes: reports: Reviewed and negative Nose: reports: Reviewed and negative Throat: reports: Reviewed and negative Cardiac: denies: Chest pain / pressure, Palpitations, Pedal edema Respiratory: reports: Dyspnea, Cough. denies: Hemoptysis, Wheezing GI: denies: Abdominal Pain, Abdominal Swelling, Nausea : denies: Dysuria, Frequency, Hesitancy Skin: reports: Reviewed and negative Musculoskeletal: reports: Reviewed and negative PD PAST MEDICAL HISTORY - Past Medical History Cardiovascular: None Respiratory: Asthma, COPD Endocrine/Autoimmune: None GI: None : None HEENT: None Psych: None Musculoskeletal: None Derm: None - Past Surgical History Past Surgical History: Yes General: Appendectomy HEENT: Cataracts - Present Medications Home Medications: Ambulatory Orders Medication Instructions Recorded Confirmed Albuterol Sulfate [Proair Hfa] 2 puffs INH TID 02/11/15 10/02/17 Budesonide/Formoterol 80/4.5 1 puffs PO DAILY 03/26/16 10/02/17 [Symbicort] Tiotropium [place] [Spiriva] 1 puffs PO DAILY 03/26/16 10/02/17 estradioL [Estradiol] 1 tab PO DAILY 10/02/17 10/02/17 Ondansetron Odt [Zofran] 4 mg TL Q6H PRN #10 tablet 09/18/19 - Allergies Allergies/Adverse Reactions: Allergies Allergy/AdvReac Type Severity Reaction Status Date / Time No Known Drug Allergies Allergy Verified 09/18/19 19:07 - Social History Does the pt smoke?: Yes Smoking Status: Current every day smoker Does the pt drink ETOH?: No Does the pt have substance abuse?: No - Immunizations Immunizations are current?: Yes PD ED PE EXPANDED - General General: Alert, In distress - Cardiac Cardiac: Regular Rate, Murmur Present, Radial strong equal, Pedal strong equal, Cap refill < 2 sec - Respiratory Respiratory: Distress, Labored, Other (Gentleman is sitting forward with mild tachypnea. He is speaking in full sentences. Saturations 97% on 3 L nasal cannula. Distant breath sounds globally. Scant wheezing noted.) - Abdomen Abdomen: Normal Bowel sounds, Other (Very large reducible periumbilical hernia). No: Tender to palpation - Back Back: Normal exam. No: CVA TTP right, CVA TTP left - Derm Derm: Normal color, Warm and dry. No: Rash - Extremities Extremities: Normal. No: Deformity, Tenderness Results - Vitals Vitals: Vital Signs - 24 hr 01/14/21 01/14/21 01/14/21 17:48 17:55 18:14 Temperature 36.8 C 36.8 C Heart Rate 104 H 97 94 Respiratory 30 H 26 H 32 H Rate Blood Pressure 163/90 H 163/90 H O2 Saturation 95 97 01/14/21 01/14/21 19:35 20:03 Temperature Heart Rate 92 87 Respiratory 18 18 Rate Blood Pressure 139/96 H O2 Saturation Oxygen O2 Source Nasal cannula - EKG (time done) 1952 Rate: Rate (enter#) (95) Rhythm: NSR [place]: Normal Intervals: RBBB QRS: LVH Ischemia: Non specific changes Compare to prior EKG: Old EKG unavailable Computer interpretation: Agree with computer - Labs Labs: Laboratory Tests 01/14/21 01/14/21 01/14/21 18:05 18:12 18:12 WBC 21.4 H RBC 4.58 L Hgb 14.4 Hct 43.6 MCV 95.2 H MCH 31.4 H MCHC 33.0 RDW 14.9 Plt Count 341 MPV 9.6 Neut # (Auto) 18.1 H Lymph # (Auto) 1.0 L Karnes # (Auto) 1.9 H Eos # (Auto) 0.1 Baso # (Auto) 0.1 Absolute Nucleated RBC 0.00 Band Neuts % (Manual) Not Reportable Abnorm Lymph % (Manual) Not Reportable Nucleated RBC % 0.0 Neutrophils # (Manual) Not Reportable Lymphocytes # (Manual) Not Reportable Monocytes # (Manual) Not Reportable Eosinophils # (Manual) Not Reportable Basophils # (Manual) Not Reportable Differential Comment MANUAL=AUTO DIFF Manual Slide Review Indicated Platelet Estimate NORMAL (130-450,000) Platelet Morphology NORMAL APPEARANCE RBC Morph Micro Appear NORMAL APPEARANCE Sodium 138 Potassium 4.0 Chloride 98 L Carbon Dioxide 28 Anion Gap 12.0 BUN 14 Creatinine 0.7 Estimated GFR (MDRD) 113 Glucose 124 H Calcium 8.9 Total Bilirubin 1.8 H AST 13 ALT 15 Alkaline Phosphatase 57 Troponin I High Sens Total Protein 7.2 Albumin 4.2 Globulin 3.0 Albumin/Globulin Ratio 1.4 Lipase 25 Nasal Adenovirus (PCR) NOT DETECTED Nasal B. parapertussis DNA (PCR) NOT DETECTED Nasal Coronavir 229E PCR NOT DETECTED Nasal Coronavir HKU1 PCR NOT DETECTED Nasal Coronavir NL63 PCR NOT DETECTED Nasal Coronavir OC43 PCR NOT DETECTED Nasal Enterovir/Rhinovir PCR NOT DETECTED Nasal Influenza B PCR NOT DETECTED Nasal Influenza A PCR NOT DETECTED Nasal Parainfluen 1 PCR NOT DETECTED Nasal Parainfluen 2 PCR NOT DETECTED Nasal Parainfluen 3 PCR NOT DETECTED Nasal Parainfluen 4 PCR NOT DETECTED Nasal RSV (PCR) NOT DETECTED Nasal B.pertussis DNA PCR NOT DETECTED Nasal C.pneumoniae (PCR) NOT DETECTED Lenin Human Metapneumo PCR NOT DETECTED Nasal M.pneumoniae (PCR) NOT DETECTED Nasal SARS-CoV-2 (PCR) NOT DETECTED 01/14/21 18:12 WBC RBC Hgb Hct MCV MCH MCHC RDW Plt Count MPV Neut # (Auto) Lymph # (Auto) Karnes # (Auto) Eos # (Auto) Baso # (Auto) Absolute Nucleated RBC Band Neuts % (Manual) Abnorm Lymph % (Manual) Nucleated RBC % Neutrophils # (Manual) Lymphocytes # (Manual) Monocytes # (Manual) Eosinophils # (Manual) Basophils # (Manual) Differential Comment Manual Slide Review Platelet Estimate Platelet Morphology RBC Morph Micro Appear Sodium Potassium Chloride Carbon Dioxide Anion Gap BUN Creatinine Estimated GFR (MDRD) Glucose Calcium Total Bilirubin AST ALT Alkaline Phosphatase Troponin I High Sens 4.9 Total Protein Albumin Globulin Albumin/Globulin Ratio Lipase Nasal Adenovirus (PCR) Nasal B. parapertussis DNA (PCR) Nasal Coronavir 229E PCR Nasal Coronavir HKU1 PCR Nasal Coronavir NL63 PCR Nasal Coronavir OC43 PCR Nasal Enterovir/Rhinovir PCR Nasal Influenza B PCR Nasal Influenza A PCR Nasal Parainfluen 1 PCR Nasal Parainfluen 2 PCR Nasal Parainfluen 3 PCR Nasal Parainfluen 4 PCR Nasal RSV (PCR) Nasal B.pertussis DNA PCR Nasal C.pneumoniae (PCR) Lenin Human Metapneumo PCR Nasal M.pneumoniae (PCR) Nasal SARS-CoV-2 (PCR) - Rads (name of study) CXR Radiology: Final report received (Nuclear interstitial opacities consistent with chronic interstitial lung disease. Slightly increased indistinct groundglass opacities in the lung bases may reflect superimposed pneumonia.) CT chest Radiology: Final report received (No evidence of central pulmonary embolism. Mild enlargement of pulmonary arteries may reflect pulmonary artery hypertension. Small indistinct nodules within the right lower lobe and left lingula. Findings are nonspecific but suggest an infectious or inflammatory process including atypical pneumon) PD MEDICAL DECISION MAKING - ED course Complexity details: reviewed results, re-evaluated patient, d/w patient, d/w family ED course: 65-year-old male presents the emergency department for severe dyspnea on e xertion that has been progressively worsening over the last 3 to 4 days. He is a known COPD and active daily tobaccoism. He was COVID-19 positive on 01 December. He apparently required no treatment at that time. Today chest x-ray suggest an atypical pneumonia but given recent COVID-[address] pulmonary angio was completed to rule out a PE. None was found though he does have pulmonary artery enlargement suggestive of pulmonary artery hypertension. There is also findings of associated right thyroid nodule. On presentation the patient was tripoding and hypoxic on room air. This did improve following nebulizers. He was given 40 mg of prednisone at the outpatient clinic. Given concerning findings for an atypical pneumonia though I have instituted him with ceftriaxone and azithromycin. He does have noted leukocytosis. Blood cultures are pending. I have spoken with Dr. Jiang to the nighttime hospitalist who graciously agrees to admit this patient Departure - Departure Disposition: 65 [facility] DC/Xfer Clinical Impression: Hypoxia Pneumonia Qualifiers: Pneumonia type: due to unspecified organism Laterality: bilateral Lung location: lower lobe of lung Qualified Code(s): J18.9 - Pneumonia, unspecified organism
[2021-01-14] MEDS ORDERED: IOVERSOL 320 100 ML VIAL IVP ONE ×2 (18:22→19:21)
[2021-01-14 18:29] LABS: BASOPHILS # (AUTO) 0.1 10^3/uL (0.0-0.1); HCT - HEMATOCRIT 43.6 % (42.0-52.0); HGB - HEMOGLOBIN 14.4 g/dL (14.0-18.0); LYMPHOCYTES % (AUTO) 4.6 %; MEAN CORPUSCULAR HEMOGLOBIN 31.4 pg (27.0-31.0); MEAN CORPUSCULAR VOLUME 95.2 fL (80.0-94.0); MEAN PLATELET VOLUME 9.6 fL (7.4-11.4); MONOCYTES # (AUTO) 1.9 10^3/uL (0.0-1.0); MONOCYTES % (AUTO) 8.9 %; NEUTROPHILS # (AUTO) 18.1 10^3/uL (1.5-6.6); NEUTROPHILS % (AUTO) 84.6 %; PLT - PLATELET COUNT 341 10^3/uL (130-450); RED BLOOD COUNT 4.58 10^6/uL (4.70-6.10); RED CELL DISTRIBUTION WIDTH 14.9 % (12.0-15.0); WHITE BLOOD COUNT 21.4 x10^3/uL (4.8-10.8)
[2021-01-14 18:31] LABS: SLIDE REVIEW? Indicated
[2021-01-14 18:37] LABS: ALBUMIN 4.2 g/dL (3.2-5.5); ALBUMIN/GLOBULIN RATIO 1.4 (1.0-2.2); BILIRUBIN,TOTAL 1.8 mg/dL (0.2-1.0); CALCIUM 8.9 mg/dL (8.5-10.3); CREATININE 0.7 mg/dL (0.6-1.2); TOTAL PROTEIN 7.2 g/dL (6.7-8.2)
--- NOTE | 2021-01-14 18:43 | XRAY Report ---
PROCEDURE: Chest 1 View X-Ray INDICATIONS: Chest Pain TECHNIQUE: One view of the chest was acquired. COMPARISON: 01/14/2021, 12/01/2020 FINDINGS: Surgical changes and devices: None. Lungs and pleura: There is hyperinflation of the lungs with flattening of the hemidiaphragms redemon strated compatible COPD. Reticular interstitial opacities are redemonstrated in the lung bases compat ible chronic interstitial changes. There are also slightly increased indistinct groundglass opacities in the lung bases. No pleural effusions or pneumothorax. Mediastinum: Mediastinal contours appear unchanged. Heart size is normal. Bones and chest wall: No suspicious bony lesions. Overlying soft tissues appear unremarkable. IMPRESSION: 1. Reticular interstitial opacities consistent with chronic interstitial lung disease redemonstrated. 2. Slightly increased indistinct ground glass opacities in the lung bases may reflect superimposed ac delia atypical pneumonia. If clinically indicated, further evaluation may be obtained with CT. 3. Findings compatible with COPD redemonstrated. Reviewed by: Aniceto Pineda MD on 01/14/2021 6:42 PM PDT Approved by: Aniceto Pineda MD on 01/14/2021 6:42 PM PDT Station ID: [id number]
[2021-01-14 18:59] LABS: PLATELET MORPHOLOGY NORMAL APPEARANCE (NORMAL); RBC MORPHOLOGY (MULTIPLE) NORMAL APPEARANCE (NORMAL)
[2021-01-14 19:00] LABS: DIFFERENTIAL COMMENT MANUAL=AUTO DIFF; PLATELET ESTIMATE, MANUAL NORMAL (130-450,000) (NORMAL)
[2021-01-14 19:04] LABS: B. PARAPERTUSSIS- RESP PCR PAN NOT DETECTED; B. PERTUSSIS- RESP PCR PANEL NOT DETECTED; C. PNEUMONIAE- RESP PCR PANEL NOT DETECTED; CORONAVIRUS 229E-RESP PCR NOT DETECTED; CORONAVIRUS HKU1-RESP PCR NOT DETECTED; CORONAVIRUS NL63-RESP PCR NOT DETECTED; CORONAVIRUS OC43-RESP PCR NOT DETECTED; HUMAN METAPNEUMOVIRUS NOT DETECTED; INFLUENZA A- RESP PCR PANEL NOT DETECTED; INFLUENZA B - RESP PCR PANEL NOT DETECTED; M. PNEUMONIAE- RESP PCR PANEL NOT DETECTED; PARAINFLUENZA VIRUS 1 NOT DETECTED; PARAINFLUENZA VIRUS 2 NOT DETECTED; PARAINFLUENZA VIRUS 3 NOT DETECTED; PARAINFLUENZA VIRUS 4 NOT DETECTED; RHINOVIRUS/ENTEROVIRUS NOT DETECTED; RSV- RESP PCR PANEL NOT DETECTED; SARS-CoV-2 -RESP PCR PANEL NOT DETECTED
[2021-01-14] MEDS ORDERED: AZITHROMYCIN INJ 500 MG in SODIUM CHLORIDE 0.9% 250 ML IV STA (19:07)
[2021-01-14] MEDS ORDERED: cefTRIAXone 1 GM VIAL IVP STA (19:08)
[2021-01-14] MEDS ORDERED: IPRATROPIUM 0.2 MG/ML NEB INH STA (19:22)
[2021-01-14] MEDS ORDERED: ALBUTEROL NEB 2.5 MG/3 ML INH STA (19:22)
[2021-01-14] MEDS ORDERED: ALBUTEROL NEB 2.5 MG/3 ML INH ONE (19:44)
--- NOTE | 2021-01-14 19:57 | CT Report ---
PROCEDURE: ANGIO CHEST W/WO INDICATIONS: hypoxia; hx hx of COVID CONTRAST: IV CONTRAST: Optiray 320 ml: 80 PO CONTRAST: *NO PO CONTRAST TECHNIQUE: After the administration of intravenous contrast, 2 mm axial images were acquired from the pulmonary apices to the posterior costophrenic angles during the arterial phase. In addition, 1 mm lung kernel and 5 mm soft tissue kernel reconstructions were performed. 3-dimensional coronal oblique maximum int ensity projection (MIP) reformats, 8 mm axial MIP, and 5 mm coronal and sagittal MPR reformats were t hen performed through the thorax. For radiation dose reduction, the following was used: automated exp osure control, adjustment of mA and/or kV according to patient size. COMPARISON: CT chest 01/15/2020, chest x-ray 01/14/2021 FINDINGS: Image quality: Excellent. Pulmonary arteries: Pulmonary arteries demonstrate no intraluminal filling defects to suggest centr al pulmonary embolism. There is mild enlargement of the pulmonary arteries, with the main coronary ar agnes measuring up to 3.1 cm suggestive of pulmonary arterial hypertension. Lungs and pleura: Severe paraseptal and centrilobular emphysematous changes are redemonstrated. There are linear areas of atelectasis bilaterally. There is an indistinct nodule within the right lower lo be measuring up to 0.7 cm on series 6 image 193 which is new from the prior study. An indistinct smal l groundglass opacities also demonstrated within the left lingula, measuring approximately 0.8 cm on series 6 image 198. No definite acute consolidation. No pleural effusions or pneumothorax. Central a nd peripheral airways are patent. Mediastinum: Heart size is normal, without pericardial effusion. No mediastinal or hilar adenopathy . Thoracic aorta is normal in caliber and enhancement. Esophagus is normal in caliber, with a small hiatal hernia. Bones and chest wall: No suspicious bony lesions. Ribs and thoracic spine appear intact throughout. No axillary or supraclavicular adenopathy. There is a right thyroid nodule measuring up to 1.5 cm. Abdomen: Visualized upper abdomen redemonstrates a cyst within the visualized left kidney there is a partially visualized ventral abdominal hernia redemonstrated with partial herniation of the transver se colon. IMPRESSION: 1. No evidence of central pulmonary embolism. Mild enlargement of the pulmonary arteries may reflect pulmonary arterial hypertension. 2. Small indistinct nodules within the right lower lobe and left lingula. The findings are nonspecifi c but suggestive of an infectious or inflammatory process, including atypical pneumonia. Consider fol low-up CT in 3-6 months to demonstrate resolution. 3. Severe paraseptal and centrilobular emphysematous changes redemonstrated. 4. Right thyroid nodule measuring up to 1.5 cm. If clinically indicated, further evaluation may be ob tained with thyroid ultrasound. Reviewed by: Aniceto Pineda MD on 01/14/2021 7:55 PM PDT Approved by: Aniceto Pineda MD on 01/14/2021 7:55 PM PDT Station ID: [id number]
[2021-01-14] MEDS ORDERED: ACETAMINOPHEN 325 MG TABLET PO PRN (20:44)
[2021-01-14] MEDS ORDERED: ONDANSETRON 4 MG/2 ML VIAL IVP PRN (20:44)
[2021-01-14] MEDS ORDERED: SODIUM CHLORIDE FLUSH 0.9% 10 ML SYRINGE IVP PRN (20:44)
--- NOTE | 2021-01-14 20:51 | HISTORY & PHYSICAL EXAMINATION ---
Chief Complaint - Chief Complaint Chief Complaint: dyspnea, hypoxia, cough History of Present Illness - Admitted From Admitted From:: [facility] ED - History Obtained From Records Reviewed: yes History obtained from: patient - History of Present Illness HPI Comment/Other: Is a 65-year-old male with medical history significant for COPD, insomnia, depression, history of prostate cancer status post prostatectomy, alcohol abuse and ventral hernia who presented to the ED with worsening dyspnea. His symptoms have been going on for the past 4 to 5 days. He finally came in today because he could not catch his breath. In the ED he was noted to have an oxygen saturation of 86% on room air. He was tachypneic with respiratory rate in the 30s and tripoding. Work-up included CBC which showed a white blood cell count of 21. He also had a CT angio of the chest which was negative for PE but concerning for atypical pneumonia. As a result he was presented for admission for further treatment. He reported testing positive for Covid on December 01, 2020 however he was asymptomatic. At bedside he appears dyspneic. He intermittently coughs and it is productive of a thick greenish/yellowish sputum. He denies chest pain, abdominal pain, fever or chills. He reported nausea but no vomiting. He has a significant ventral hernia. History - Past Medical History Cardiovascular: reports: None Respiratory: reports: Asthma, COPD Endocrine/Autoimmune: reports: None GI: reports: Other (ventral hernia) : reports: None HEENT: reports: None Psych: reports: Depression Musculoskeletal: reports: None Derm: reports: None MRSA Hx?: No Other Past Medical History: History of prostate cancer status post prostatectomy - Past Surgical History General: reports: Appendectomy HEENT: reports: Cataracts - Family & Social History Family History Comment/Other: His mother from lung cancer. His father from alcoholism Social History Notes: Patient lives at home with one relative. He is retired f [employer]. He smokes half to three fourths of a pack of cigarettes daily. He has been smoking for 42 years. He drinks half a pint of whiskey daily. He denies recreational substance use. - POLST Patient has POLST: No POLST Status: Full Code Meds/Allgy - Home Medications Home Medications: Ambulatory Orders Medication Instructions Recorded Confirmed Albuterol Sulfate [Proair Hfa] 2 puffs INH TID 02/11/15 01/14/21 Budesonide/Formoterol 80/4.5 1 puffs PO DAILY 03/26/16 01/14/21 [Symbicort] Tiotropium [place] [Spiriva] 1 puffs PO DAILY 03/26/16 01/14/21 Budesonide/Formoterol Fumarate 2 puffs INH DAILY 01/14/21 01/14/21 [Symbicort 160-4.5 Mcg Inhaler] Sertraline [Zoloft] 25 mg PO DAILY 01/14/21 01/14/21 traZODone [Desyrel] 50 mg PO DAILY 01/14/21 01/14/21 - Allergies Allergies/Adverse Reactions: Allergies Allergy/AdvReac Type Severity Reaction Status Date / Time No Known Drug Allergies Allergy Verified 09/18/19 19:07 Review of Systems - Constitutional Constitutional: denies: Fatigue, Fever, Chills - Eyes Eyes: denies: Pain, Vision loss - Ears, Nose & Throat Ears, Nose & Throat: denies: Sore throat - Cardiovascular Cariovascular: denies: Irregular heart rate, Palpitations, Chest pain, Lig htheadedness, Syncope, Exertional dyspnea - Respiratory Respiratory: reports: Cough, Sputum production (greenish-yellow), SOB at rest. denies: Wheezing - Gastrointestinal Gastrointestinal: reports: Nausea, Other (ventral hernia). denies: Abdominal pain, Abdominal distention, Constipation, Diarrhea, Vomiting - Genitourinary Genitourinary: denies: Dysuria, Frequency, Urgency, Hematuria - Musculoskeletal Musculoskeletal: denies: Muscle pain, Back pain, Muscle aches - Integumentary Integumentary: reports: Lumps (hardened and lumpy facial featured). denies: Rash, Pruritis, Lesions - Neurological Neurological: denies: General weakness, Focal weakness, Headache, Dizziness - Psychiatric Psychiatric: reports: Depression. denies: Anxiety - Endocrine Endocrine: denies: Polyuria, Polydypsia - Hematologic/Lymphatic Hematologic/Lymphatic: denies: Anemia, Bruising Prior Level of Functionality: He is independent of activities of daily living Exam - Vital Signs Vital Signs: Vital Signs x48h Temp Pulse Resp BP Pulse Ox 01/14/21 20:03 87 18 139/96 H 01/14/21 19:35 92 18 01/14/21 18:14 94 32 H 01/14/21 17:55 36.8 C 97 26 H 163/90 H 97 01/14/21 17:48 36.8 C 104 H 30 H 163/90 H 95 - Physical Exam General Appearance: positive: Alert, Moderate distress, Other (Hardened/ lumpy/ Rough facial features/ appearance) Eyes Bilateral: positive: PERRL, EOMI ENT: positive: No signs of dehydration Neck: positive: No JVD, Trachea midline Respiratory: positive: Chest non-tender, Other (Moderate respiratory distress, Diminished breath sounds, Tachypnea) Cardiovascular: positive: No murmur Abdomen: positive: Non-tender, Nml bowel sounds, No distention, Other (large ventral hernia) Skin: positive: Other (rough/ lumpy facial features. flushed/ elise face) Extremities: positive: Non-tender, Full ROM, Nml appearance, No pedal edema Neurologic/Psychiatric: positive: Oriented x3, Mood/affect nml Conclusion/Plan - Problem List (1) Community acquired pneumonia Conclusion/Plan: WBCs was 21. Patient was started on Rocephin and azithromycin. Will continue. Currently on 4 L of oxygen via nasal cannula. (2) COPD exacerbation Conclusion/Plan: Mild. Likely exacerbated by pneumonia. DuoNeb ordered every 4 hours. Budesonide and Perforomist ordered. (3) Acute respiratory failure with hypoxia Conclusion/Plan: Secondary to pneumonia and COPD exacerbation. Patient is on antibiotics. Patient receiving breathing treatments. On supplemental oxygen (4) Alcohol abuse Conclusion/Plan: Drinks half a pint of whiskey daily. Librium 25 mg p.o. 3 times daily ordered. CIWA protocol initiated. (5) Insomnia Conclusion/Plan: Trazodone 50 mg p.o. every night - Lab Results Fish Bones: 01/14/21 22:40 01/14/21 18:12 Core Measures - Anticipated LOS I expect patient to be DC'd or transferred within 96 hours.: Yes - DVT/VTE - Prophylaxis VTE/DVT Device ordered at admit?: Yes VTE/DVT Prophylaxis med ordered at admit?: Yes
[2021-01-14] MEDS: SODIUM CHLORIDE 0.9% 1,000 ML IV SCH (21:46)
[2021-01-14] MEDS ORDERED: LORazepam 2 MG/ML VIAL IVP PRN (22:32)
[2021-01-14 22:45] LABS: BASOPHILS # (AUTO) 0.1 10^3/uL (0.0-0.1); BASOPHILS % (AUTO) 0.3 %; EOSINOPHILS % (AUTO) 0.2 %; HCT - HEMATOCRIT 44.6 % (42.0-52.0); HGB - HEMOGLOBIN 14.3 g/dL (14.0-18.0); LYMPHOCYTES # (AUTO) 0.4 10^3/uL (1.5-3.5); LYMPHOCYTES % (AUTO) 1.9 %; MEAN CORPUSCULAR HEMOGLOBIN 30.7 pg (27.0-31.0); MEAN CORPUSCULAR HGB CONC 32.1 g/dL (32.0-36.0); MEAN CORPUSCULAR VOLUME 95.7 fL (80.0-94.0); MEAN PLATELET VOLUME 9.1 fL (7.4-11.4); MONOCYTES # (AUTO) 0.7 10^3/uL (0.0-1.0); MONOCYTES % (AUTO) 3.7 %; NEUTROPHILS # (AUTO) 18.1 10^3/uL (1.5-6.6); NEUTROPHILS % (AUTO) 93.3 %; PLT - PLATELET COUNT 321 10^3/uL (130-450); RED BLOOD COUNT 4.66 10^6/uL (4.70-6.10); RED CELL DISTRIBUTION WIDTH 14.9 % (12.0-15.0); WHITE BLOOD COUNT 19.4 x10^3/uL (4.8-10.8)
[2021-01-14] MEDS: IPRATROPIUM/ALBUTEROL 3 ML NEB INH PRN (23:30)
[2021-01-14] MEDS: chlordiazePOXIDE 25 MG CAPSULE PO SCH (23:43)
[2021-01-14] MEDS: traZODone 50 MG TABLET PO SCH (23:43)
[2021-01-15] MEDS: SODIUM CHLORIDE FLUSH 0.9% 10 ML SYRINGE IVP SCH ×3 (04:16→16:51)
[2021-01-15 05:47] LABS: BASOPHILS % (AUTO) 0.3 %; EOSINOPHILS % (AUTO) 0.1 %; HCT - HEMATOCRIT 41.6 % (42.0-52.0); HGB - HEMOGLOBIN 13.8 g/dL (14.0-18.0); LYMPHOCYTES % (AUTO) 6.7 %; MEAN CORPUSCULAR HGB CONC 33.2 g/dL (32.0-36.0); MEAN CORPUSCULAR VOLUME 96.5 fL (80.0-94.0); MEAN PLATELET VOLUME 9.6 fL (7.4-11.4); NEUTROPHILS % (AUTO) 82.3 %; PLT - PLATELET COUNT 323 10^3/uL (130-450); RED BLOOD COUNT 4.31 10^6/uL (4.70-6.10); RED CELL DISTRIBUTION WIDTH 14.8 % (12.0-15.0); WHITE BLOOD COUNT 16.6 x10^3/uL (4.8-10.8)
[2021-01-15 05:51] LABS: ABNORMAL LYMPHS % (MANUAL) 0 %; BAND NEUTROPHILS % (MANUAL) 0 %
[2021-01-15 05:56] LABS: CALCIUM 8.7 mg/dL (8.5-10.3); CREATININE 0.8 mg/dL (0.6-1.2); POTASSIUM 3.8 mmol/L (3.5-5.0)
[2021-01-15 06:04] LABS: DIFFERENTIAL COMMENT MANUAL DIFFERENTIAL; LYMPHOCYTES % (MANUAL) 12 %; MONOCYTES # (MANUAL) 1.5 10^3/uL (0.0-1.0); NEUTROPHILS # (MANUAL) 13.1 10^3/uL (1.5-6.6); PLATELET ESTIMATE, MANUAL NORMAL (130-450,000) (NORMAL); PLATELET MORPHOLOGY NORMAL APPEARANCE (NORMAL); RBC MORPHOLOGY (MULTIPLE) NORMAL APPEARANCE (NORMAL); WBC MORPHOLOGY (MULTIPLE) NORMAL APPEARANCE (NORMAL)
[2021-01-15] MEDS: FORMOTEROL FUMARATE NEB 20 MCG/2 ML INH SCH ×2 (06:16→19:40)
[2021-01-15] MEDS: IPRATROPIUM/ALBUTEROL 3 ML NEB INH PRN ×2 (06:16→10:27)
[2021-01-15] MEDS: BUDESONIDE 0.5 MG/2 ML NEB INH SCH ×2 (06:16→19:40)
[2021-01-15] MEDS: chlordiazePOXIDE 25 MG CAPSULE PO SCH ×3 (06:22→21:01)
[2021-01-15] MEDS: SODIUM CHLORIDE 0.9% 1,000 ML IV SCH ×2 (06:23→16:51)
[2021-01-15] MEDS: ENOXAPARIN 40 MG/0.4 ML SYRINGE SUBQ SCH (09:00)
[2021-01-15] MEDS: THIAMINE 100 MG TABLET PO SCH (09:00)
[2021-01-15] MEDS: PRENATAL VITAMIN TABLET PO SCH (09:00)
[2021-01-15] MEDS: NICOTINE 7 MG PATCH TOP SCH (09:03)
--- NOTE | 2021-01-15 12:43 | PROVIDER PROGRESS NOTE ---
Subjective - Prog Note Date Prog Note Date: 01/15/21 - Subjective Subjective: Feels improved but still short of breath. Still has quite a productive cough. He has not wanted any medication for the cough. Current Medications - Current Medications Current Medications: Active Medications Acetaminophen (Acetaminophen 325 Mg Tablet) 650 mg PO Q4HR PRN PRN Reason: Pain 1 to 4 Albuterol/Ipratropium (Ipratropium/Albuterol 3 Ml Neb) 3 ml INH Q4HR PRN PRN Reason: Wheezing Last Admin: 01/15/21 10:27 Dose: 3 ml Documented by: Budesonide (Budesonide 0.5 Mg/2 Ml Neb) 0.5 mg INH RTBID ELISABET Last Admin: 01/15/21 06:16 Dose: 0.5 mg Documented by: Chlordiazepoxide HCl (Chlordiazepoxide 25 Mg Capsule) 25 mg PO Q8HR ELISABET Last Admin: 01/15/21 06:22 Dose: 25 mg Documented by: Enoxaparin Sodium (Enoxaparin 40 Mg/0.4 Ml Syringe) 40 mg SUBQ DAILY [facility] Last Admin: 01/15/21 09:00 Dose: 40 mg Documented by: Formoterol Fumarate (Formoterol Fumarate Neb 20 Mcg/2 Ml) 20 mcg INH RTBID ELISABET Last Admin: 01/15/21 06:16 Dose: 20 mcg Documented by: Sodium Chloride (Normal Saline 0.9%) 1,000 mls @ 100 mls/hr IV .Q10H [facility] Last Admin: 01/15/21 06:23 Dose: 100 mls/hr Documented by: Ceftriaxone Sodium 1 gm/ (Sodium Chloride) 100 mls @ 200 mls/hr IV Q24H ELISABET Azithromycin 500 mg/ Sodium (Chloride) 250 mls @ 250 mls/hr IV Q24H [facility] Stop: 01/16/21 20:59 Lorazepam (Lorazepam 2 Mg/Ml Vial) 1 mg IVP Q30M PRN; Protocol PRN Reason: CIWA >8 Nicotine (Nicotine 7 Mg Patch) 1 patch TOP DAILY [facility] Last Admin: 01/15/21 09:03 Dose: Not Given Documented by: Ondansetron HCl (Ondansetron 4 Mg/2 Ml Vial) 4 mg IVP Q6HR PRN PRN Reason: Nausea / Vomiting Prednisone (Prednisone 20 Mg Tablet) 40 mg PO DAILYWM ELISABET Multivit/Folic Acid/Iron ( Vitamin Tablet) 1 tab PO DAILY [facility] Last Admin: 01/15/21 09:00 Dose: 1 tab Documented by: Sodium Chloride (Sodium Chloride Flush 0.9% 10 Ml Syringe) 10 ml IVP PRN PRN PRN Reason: NEEDED PER PROVIDER ORDERS Sodium Chloride (Sodium Chloride Flush 0.9% 10 Ml Syringe) 10 ml IVP 0100,0900,1700 [facility] Last Admin: 01/15/21 04:16 Dose: Not Given Documented by: Thiamine HCl (Thiamine 100 Mg Tablet) 100 mg PO DAILY [facility] Last Admin: 01/15/21 09:00 Dose: 100 mg Documented by: Trazodone HCl (Trazodone 50 Mg Tablet) 50 mg PO QPM [facility] Last Admin: 01/14/21 23:43 Dose: 50 mg Documented by: Albuterol Sulfate [Proair Hfa] 2 puffs INH TID 02/11/15 Budesonide/Formoterol 80/4.5 [Symbicort] 1 puffs PO DAILY 03/26/16 Tiotropium [place] [Spiriva] 1 puffs PO DAILY 03/26/16 Budesonide/Formoterol Fumarate [Symbicort 160-4.5 Mcg Inhaler] 2 puffs INH DAILY 01/14/21 Sertraline [Zoloft] 25 mg PO DAILY 01/14/21 traZODone [Desyrel] 50 mg PO DAILY 01/14/21 Objective - Vital Signs/Intake & Output Reviewed Vital Signs: Yes Vital Signs: Vital Signs x48h Temp Pulse Pulse Resp BP Pulse Ox 01/15/21 12:32 36.4 C L 84 20 121/65 93 01/15/21 10:53 36.6 C 80 20 95 01/15/21 10:29 80 20 01/15/21 07:45 36.6 C 86 24 146/69 H 98 01/15/21 06:15 90 22 01/15/21 04:55 36.6 C 97 23 124/74 98 Intake & Output: Intake & Output 01/12/21 01/13/21 01/14/21 01/15/21 23:59 23:59 23:59 23:59 Intake Total 250 1871.667 Output Total 125 200 Balance 125 1671.667 - Objective General Appearance: positive: No acute distress, Alert Eyes Bilateral: positive: Normal inspection, Conjunctivae nml ENT: positive: ENT inspection nml Neck: positive: Nml inspection Respiratory: positive: No respiratory distress, Wheezes, Other (Tachypneic with wheezes throughout all lung saucedo.) Cardiovascular: positive: Regular rate & rhythm, No murmur. negative: Tachycardia Abdomen: positive: Non-tender, Other (Ventral hernia noted.). negative: Tenderness Skin: positive: Warm, Dry Extremities: positive: No pedal edema Neurologic/Psychiatric: negative: Disoriented to person, Disoriented to place - Lab Results Fish Bones: 01/15/21 05:24 01/15/21 05:24 Other Labs: Lab Results x24hrs 01/15/21 01/15/21 01/14/21 Range/Units 05:24 05:24 22:40 WBC 16.6 H 19.4 H (4.8-10.8) x10^3/uL RBC 4.31 L 4.66 L (4.70-6.10) 10^6/uL Hgb 13.8 L 14.3 (14.0-18.0) g/dL Hct 41.6 L 44.6 (42.0-52.0) % MCV 96.5 H 95.7 H (80.0-94.0) fL MCH 32.0 H 30.7 (27.0-31.0) pg MCHC 33.2 32.1 (32.0-36.0) g/dL RDW 14.8 14.9 (12.0-15.0) % Plt Count 323 321 (130-450) 10^3/uL MPV 9.6 9.1 (7.4-11.4) fL Neut # (Auto) Not Reportable 18.1 H (1.5-6.6) 10^3/uL Lymph # (Auto) Not Reportable 0.4 L (1.5-3.5) 10^3/uL Lyon # (Auto) Not Reportable 0.7 (0.0-1.0) 10^3/uL Eos # (Auto) Not Reportable 0.0 (0.0-0.7) 10^3/uL Baso # (Auto) Not Reportable 0.1 (0.0-0.1) 10^3/uL Absolute Nucleated RBC Not Reportable 0.00 x10^3/uL Total Counted 100 Band Neuts % (Manual) 0 Abnorm Lymph % (Manual) 0 Nucleated RBC % Not Reportable 0.0 /100WBC Neutrophils # (Manual) 13.1 H Lymphocytes # (Manual) 2.0 Monocytes # (Manual) 1.5 H Eosinophils # (Manual) 0.0 Basophils # (Manual) 0.0 Differential Comment MANUAL DIFFERENTIAL Manual Slide Review WBC Morphology NORMAL APPEARANCE (NORMAL) Platelet Estimate NORMAL (130-450,000) (NORMAL) Platelet Morphology NORMAL APPEARANCE (NORMAL) RBC Morph Micro Appear NORMAL APPEARANCE (NORMAL) Sodium 143 (135-145) mmol/L Potassium 3.8 (3.5-5.0) mmol/L Chloride 105 (101-111) mmol/L Carbon Dioxide 28 (21-32) mmol/L Anion Gap 10.0 (6-13) BUN 14 (6-20) mg/dL Creatinine 0.8 (0.6-1.2) mg/dL Estimated GFR (MDRD) 97 (>89) Glucose 117 H (70-100) mg/dL Calcium 8.7 (8.5-10.3) mg/dL Total Bilirubin (0.2-1.0) mg/dL AST (10-42) IU/L ALT (10-60) IU/L Alkaline Phosphatase (42-121) IU/L Troponin I High Sens (2.3-19.7) ng/L Total Protein (6.7-8.2) g/dL Albumin (3.2-5.5) g/dL Globulin (2.1-4.2) g/dL Albumin/Globulin Ratio (1.0-2.2) Lipase (22-51) U/L Nasal Adenovirus (PCR) Nasal B. parapertussis DNA (PCR) Nasal Coronavir 229E PCR Nasal Coronavir HKU1 PCR Nasal Coronavir NL63 PCR Nasal Coronavir OC43 PCR Nasal Enterovir/Rhinovir PCR Nasal Influenza B PCR Nasal Influenza A PCR Nasal Parainfluen 1 PCR Nasal Parainfluen 2 PCR Nasal Parainfluen 3 PCR Nasal Parainfluen 4 PCR Nasal RSV (PCR) Nasal B.pertussis DNA PCR Nasal C.pneumoniae (PCR) Lenin Human Metapneumo PCR Nasal M.pneumoniae (PCR) Nasal SARS-CoV-2 (PCR) 11/05/21 11/05/21 11/05/21 Range/Units 18:12 18:12 18:12 WBC 21.4 H (4.8-10.8) x10^3/uL RBC 4.58 L (4.70-6.10) 10^6/uL Hgb 14.4 (14.0-18.0) g/dL Hct 43.6 (42.0-52.0) % MCV 95.2 H (80.0-94.0) fL MCH 31.4 H (27.0-31.0) pg MCHC 33.0 (32.0-36.0) g/dL RDW 14.9 (12.0-15.0) % Plt Count 341 (130-450) 10^3/uL MPV 9.6 (7.4-11.4) fL Neut # (Auto) 18.1 H (1.5-6.6) 10^3/uL Lymph # (Auto) 1.0 L (1.5-3.5) 10^3/uL Lyon # (Auto) 1.9 H (0.0-1.0) 10^3/uL Eos # (Auto) 0.1 (0.0-0.7) 10^3/uL Baso # (Auto) 0.1 (0.0-0.1) 10^3/uL Absolute Nucleated RBC 0.00 x10^3/uL Total Counted Band Neuts % (Manual) Not Reportable Abnorm Lymph % (Manual) Not Reportable Nucleated RBC % 0.0 /100WBC Neutrophils # (Manual) Not Reportable Lymphocytes # (Manual) Not Reportable Monocytes # (Manual) Not Reportable Eosinophils # (Manual) Not Reportable Basophils # (Manual) Not Reportable Differential Comment MANUAL=AUTO DIFF Manual Slide Review Indicated WBC Morphology (NORMAL) Platelet Estimate NORMAL (130-450,000) (NORMAL) Platelet Morphology NORMAL APPEARANCE (NORMAL) RBC Morph Micro Appear NORMAL APPEARANCE (NORMAL) Sodium 138 (135-145) mmol/L Potassium 4.0 (3.5-5.0) mmol/L Chloride 98 L (101-111) mmol/L Carbon Dioxide 28 (21-32) mmol/L Anion Gap 12.0 (6-13) BUN 14 (6-20) mg/dL Creatinine 0.7 (0.6-1.2) mg/dL Estimated GFR (MDRD) 113 (>89) Glucose 124 H (70-100) mg/dL Calcium 8.9 (8.5-10.3) mg/dL Total Bilirubin 1.8 H (0.2-1.0) mg/dL AST 13 (10-42) IU/L ALT 15 (10-60) IU/L Alkaline Phosphatase 57 (42-121) IU/L Troponin I High Sens 4.9 (2.3-19.7) ng/L Total Protein 7.2 (6.7-8.2) g/dL Albumin 4.2 (3.2-5.5) g/dL Globulin 3.0 (2.1-4.2) g/dL Albumin/Globulin Ratio 1.4 (1.0-2.2) Lipase 25 (22-51) U/L Nasal Adenovirus (PCR) Nasal B. parapertussis DNA (PCR) Nasal Coronavir 229E PCR Nasal Coronavir HKU1 PCR Nasal Coronavir NL63 PCR Nasal Coronavir OC43 PCR Nasal Enterovir/Rhinovir PCR Nasal Influenza B PCR Nasal Influenza A PCR Nasal Parainfluen 1 PCR Nasal Parainfluen 2 PCR Nasal Parainfluen 3 PCR Nasal Parainfluen 4 PCR Nasal RSV (PCR) Nasal B.pertussis DNA PCR Nasal C.pneumoniae (PCR) Lenin Human Metapneumo PCR Nasal M.pneumoniae (PCR) Nasal SARS-CoV-2 (PCR) 01/14/21 Range/Units 18:05 WBC (4.8-10.8) x10^3/uL RBC (4.70-6.10) 10^6/uL Hgb (14.0-18.0) g/dL Hct (42.0-52.0) % MCV (80.0-94.0) fL MCH (27.0-31.0) pg MCHC (32.0-36.0) g/dL RDW (12.0-15.0) % Plt Count (130-450) 10^3/uL MPV (7.4-11.4) fL Neut # (Auto) (1.5-6.6) 10^3/uL Lymph # (Auto) (1.5-3.5) 10^3/uL Lyon # (Auto) (0.0-1.0) 10^3/uL Eos # (Auto) (0.0-0.7) 10^3/uL Baso # (Auto) (0.0-0.1) 10^3/uL Absolute Nucleated RBC x10^3/uL Total Counted Band Neuts % (Manual) Abnorm Lymph % (Manual) Nucleated RBC % /100WBC Neutrophils # (Manual) Lymphocytes # (Manual) Monocytes # (Manual) Eosinophils # (Manual) Basophils # (Manual) Differential Comment Manual Slide Review WBC Morphology (NORMAL) Platelet Estimate (NORMAL) Platelet Morphology (NORMAL) RBC Morph Micro Appear (NORMAL) Sodium (135-145) mmol/L Potassium (3.5-5.0) mmol/L Chloride (101-111) mmol/L Carbon Dioxide (21-32) mmol/L Anion Gap (6-13) BUN (6-20) mg/dL Creatinine (0.6-1.2) mg/dL Estimated GFR (MDRD) (>89) Glucose (70-100) mg/dL Calcium (8.5-10.3) mg/dL Total Bilirubin (0.2-1.0) mg/dL AST (10-42) IU/L ALT (10-60) IU/L Alkaline Phosphatase (42-121) IU/L Troponin I High Sens (2.3-19.7) ng/L Total Protein (6.7-8.2) g/dL Albumin (3.2-5.5) g/dL Globulin (2.1-4.2) g/dL Albumin/Globulin Ratio (1.0-2.2) Lipase (22-51) U/L Nasal Adenovirus (PCR) NOT DETECTED Nasal B. parapertussis DNA (PCR) NOT DETECTED Nasal Coronavir 229E PCR NOT DETECTED Nasal Coronavir HKU1 PCR NOT DETECTED Nasal Coronavir NL63 PCR NOT DETECTED Nasal Coronavir OC43 PCR NOT DETECTED Nasal Enterovir/Rhinovir PCR NOT DETECTED Nasal Influenza B PCR NOT DETECTED Nasal Influenza A PCR NOT DETECTED Nasal Parainfluen 1 PCR NOT DETECTED Nasal Parainfluen 2 PCR NOT DETECTED Nasal Parainfluen 3 PCR NOT DETECTED Nasal Parainfluen 4 PCR NOT DETECTED Nasal RSV (PCR) NOT DETECTED Nasal B.pertussis DNA PCR NOT DETECTED Nasal C.pneumoniae (PCR) NOT DETECTED Lenin Human Metapneumo PCR NOT DETECTED Nasal M.pneumoniae (PCR) NOT DETECTED Nasal SARS-CoV-2 (PCR) NOT DETECTED ABX Reporting Has patient been on IV antibiotics over the past 48 hours?: Yes Assessment/Plan - Problem List (1) COPD exacerbation Impression: Improved but still ongoing. He is no longer requiring submental oxygen but still has significant wheezing and dyspnea. We will continue him on the antibiotics for the community-acquired pneumonia. We will start him on prednisone 40 mg daily. DuoNebs 4 times daily with albuterol as needed. (2) Community acquired pneumonia Impression: This likely exacerbated his COPD. He is no longer on oxygen. Imaging suggested atypical pneumonia. Today is day 2 of antibiotics with azithromycin and ceftriaxone. (3) Alcohol abuse Impression: He has shown no evidence of withdrawal to date. He denies a prior history of alcohol withdrawal. Continue thiamine and folate and monitor for withdrawal.
[2021-01-15] MEDS ORDERED: ALBUTEROL NEB 2.5 MG/3 ML INH PRN (12:44)
--- NOTE | 2021-01-15 13:42 | PHARMACY PROGRESS NOTE ---
- Best Possible Medication History Admit Date and Time: 01/14/212043 Processed by: Pharmacy Medication History completed: Yes Patient Interview: Completed Secondary Source(s): Written medication list, Pharmacy records, Insurance records As the person ultimately responsible for medication therapy, providers are able to order a medication from an existing home medication list in [facility] via the "Reconcile Routine" prior to Confirmation of that medication by computer network support specialist. Such practice is discouraged except when the physician, in their clinical judgment, deems that a medical need exists for a medication without regard to previous use.
[2021-01-15] MEDS: predniSONE 20 MG TABLET PO SCH (13:53)
[2021-01-15] MEDS: IPRATROPIUM/ALBUTEROL 3 ML NEB INH SCH ×2 (14:31→19:40)
[2021-01-15] MEDS: AZITHROMYCIN INJ 500 MG in SODIUM CHLORIDE 0.9% 250 ML IV SCH (19:37)
[2021-01-15] MEDS: traZODone 50 MG TABLET PO SCH (21:01)
[2021-01-15] MEDS: cefTRIAXone 1 GM in SODIUM CHLORIDE 0.9% MINIBAG 100 ML IV SCH (21:01)
[2021-01-15] MEDS: guaiFENesin/DEXTROMETHORPHAN 10 ML UDC PO PRN (21:50)
[2021-01-16] MEDS: SODIUM CHLORIDE 0.9% 1,000 ML IV SCH ×3 (01:51→21:55)
[2021-01-16] MEDS: SODIUM CHLORIDE FLUSH 0.9% 10 ML SYRINGE IVP SCH ×3 (05:07→16:13)
[2021-01-16] MEDS: BUDESONIDE 0.5 MG/2 ML NEB INH SCH ×2 (06:04→19:40)
[2021-01-16] MEDS: IPRATROPIUM/ALBUTEROL 3 ML NEB INH SCH ×4 (06:04→19:41)
[2021-01-16] MEDS: FORMOTEROL FUMARATE NEB 20 MCG/2 ML INH SCH ×2 (06:05→19:40)
[2021-01-16 06:09] LABS: BASOPHILS % (AUTO) 0.4 %; EOSINOPHILS % (AUTO) 0.4 %; HCT - HEMATOCRIT 40.7 % (42.0-52.0); HGB - HEMOGLOBIN 12.8 g/dL (14.0-18.0); LYMPHOCYTES % (AUTO) 12.6 %; MEAN CORPUSCULAR HGB CONC 31.4 g/dL (32.0-36.0); MEAN CORPUSCULAR VOLUME 98.5 fL (80.0-94.0); MONOCYTES % (AUTO) 11.2 %; NEUTROPHILS % (AUTO) 74.9 %; PLT - PLATELET COUNT 316 10^3/uL (130-450); RED BLOOD COUNT 4.13 10^6/uL (4.70-6.10); RED CELL DISTRIBUTION WIDTH 15.1 % (12.0-15.0); WHITE BLOOD COUNT 13.7 x10^3/uL (4.8-10.8)
[2021-01-16 06:17] LABS: ABNORMAL LYMPHS % (MANUAL) 0 %; BAND NEUTROPHILS % (MANUAL) 0 %; CALCIUM 8.4 mg/dL (8.5-10.3); CREATININE 0.7 mg/dL (0.6-1.2); POTASSIUM 3.7 mmol/L (3.5-5.0)
[2021-01-16] MEDS: chlordiazePOXIDE 25 MG CAPSULE PO SCH ×3 (06:18→21:56)
[2021-01-16 06:28] LABS: DIFFERENTIAL COMMENT MANUAL DIFFERENTIAL; LYMPHOCYTES # (MANUAL) 1.8 10^3/uL (1.5-3.5); LYMPHOCYTES % (MANUAL) 13 %; MONOCYTES # (MANUAL) 1.8 10^3/uL (0.0-1.0); NEUTROPHILS # (MANUAL) 10.1 10^3/uL (1.5-6.6); PLATELET ESTIMATE, MANUAL NORMAL (130-450,000) (NORMAL); PLATELET MORPHOLOGY NORMAL APPEARANCE (NORMAL); RBC MORPHOLOGY (MULTIPLE) NORMAL APPEARANCE (NORMAL); WBC MORPHOLOGY (MULTIPLE) NORMAL APPEARANCE (NORMAL)
[2021-01-16] MEDS: predniSONE 20 MG TABLET PO SCH (08:07)
[2021-01-16] MEDS: THIAMINE 100 MG TABLET PO SCH (08:46)
[2021-01-16] MEDS: PRENATAL VITAMIN TABLET PO SCH (08:46)
[2021-01-16] MEDS: ENOXAPARIN 40 MG/0.4 ML SYRINGE SUBQ SCH (08:46)
[2021-01-16] MEDS: NICOTINE 7 MG PATCH TOP SCH (08:48)
--- NOTE | 2021-01-16 08:49 | PROVIDER PROGRESS NOTE ---
Subjective - Prog Note Date Prog Note Date: 01/16/21 - Subjective Subjective: He feels improved but still feels short of breath especially with ambulation. Reports feeling quite winded just walking to the bathroom. Still has a productive cough that is quite significant he does not want cough suppressant but is agreeable to trying Mucinex. Current Medications - Current Medications Current Medications: Active Medications Acetaminophen (Acetaminophen 325 Mg Tablet) 650 mg PO Q4HR PRN PRN Reason: Pain 1 to 4 Albuterol (Albuterol Neb 2.5 Mg/3 Ml) 2.5 mg INH RTQ4H PRN PRN Reason: Wheezing Albuterol/Ipratropium (Ipratropium/Albuterol 3 Ml Neb) 3 ml INH Q4HR PRN PRN Reason: Wheezing Last Admin: 01/15/21 10:27 Dose: 3 ml Documented by: Albuterol/Ipratropium (Ipratropium/Albuterol 3 Ml Neb) 3 ml INH RTQID [facility] Last Admin: 01/16/21 06:04 Dose: 3 ml Documented by: Budesonide (Budesonide 0.5 Mg/2 Ml Neb) 0.5 mg INH RTBID [facility] Last Admin: 01/16/21 06:04 Dose: 0.5 mg Documented by: Chlordiazepoxide HCl (Chlordiazepoxide 25 Mg Capsule) 25 mg PO Q8HR [facility] Last Admin: 01/16/21 06:18 Dose: 25 mg Documented by: Enoxaparin Sodium (Enoxaparin 40 Mg/0.4 Ml Syringe) 40 mg SUBQ DAILY [facility] Last Admin: 01/15/21 09:00 Dose: 40 mg Documented by: Formoterol Fumarate (Formoterol Fumarate Neb 20 Mcg/2 Ml) 20 mcg INH RTBID [facility] Last Admin: 01/16/21 06:05 Dose: 20 mcg Documented by: Guaifenesin (Guaifenesin/Dextromethorphan 10 Ml Udc) 10 ml PO Q6HR PRN PRN Reason: Cough Last Admin: 01/15/21 21:50 Dose: 10 ml Documented by: Guaifenesin (Guaifenesin 600 Mg Tablet) 600 mg PO BID [facility] Sodium Chloride (Normal Saline 0.9%) 1,000 mls @ 100 mls/hr IV .Q10H [facility] Last Admin: 01/16/21 01:51 PDT Dose: 100 mls/hr Documented by: Ceftriaxone Sodium 1 gm/ (Sodium Chloride) 100 mls @ 200 mls/hr IV Q24H [facility] Last Infusion: 01/15/21 21:31 Dose: Infused Documented by: Azithromycin 500 mg/ Sodium (Chloride) 250 mls @ 250 mls/hr IV Q24H [facility] Stop: 01/16/21 20:59 Last Infusion: 01/15/21 20:37 Dose: Infused Documented by: Lorazepam (Lorazepam 2 Mg/Ml Vial) 1 mg IVP Q30M PRN; Protocol PRN Reason: CIWA >8 Nicotine (Nicotine 7 Mg Patch) 1 patch TOP DAILY [facility] Last Admin: 01/15/21 09:03 Dose: Not Given Documented by: Ondansetron HCl (Ondansetron 4 Mg/2 Ml Vial) 4 mg IVP Q6HR PRN PRN Reason: Nausea / Vomiting Prednisone (Prednisone 20 Mg Tablet) 40 mg PO DAILYWM [facility] Last Admin: 01/16/21 08:07 Dose: 40 mg Documented by: Multivit/Folic Acid/Iron ( Vitamin Tablet) 1 tab PO DAILY [facility] Last Admin: 01/15/21 09:00 Dose: 1 tab Documented by: Sodium Chloride (Sodium Chloride Flush 0.9% 10 Ml Syringe) 10 ml IVP PRN PRN PRN Reason: NEEDED PER PROVIDER ORDERS Sodium Chloride (Sodium Chloride Flush 0.9% 10 Ml Syringe) 10 ml IVP 0100,0900,1700 [facility] Last Admin: 01/16/21 05:07 Dose: Not Given Documented by: Thiamine HCl (Thiamine 100 Mg Tablet) 100 mg PO DAILY [facility] Last Admin: 01/15/21 09:00 Dose: 100 mg Documented by: Trazodone HCl (Trazodone 50 Mg Tablet) 50 mg PO QPM [facility] Last Admin: 01/15/21 21:01 Dose: 50 mg Documented by: Albuterol Sulfate [Proair Hfa] 2 puffs INH TID PRN 02/11/15 Tiotropium [place] [Spiriva] 1 puffs PO DAILY 03/26/16 Budesonide/Formoterol Fumarate [Symbicort 160-4.5 Mcg Inhaler] 2 puffs INH BID 01/14/21 Sertraline [Zoloft] 100 mg PO DAILY 01/14/21 traZODone [Desyrel] 100 mg PO QPM 01/14/21 Ascorbic Acid [Vitamin C] 1,000 mg PO DAILY 01/15/21 Cetirizine [ZyrTEC] 10 mg PO DAILY 01/15/21 Cholecalciferol [Vitamin D3] 25 mcg PO DAILY 01/15/21 Furosemide [Lasix] 40 mg PO DAILY 01/15/21 Ipratropium/Albuterol [Duoneb] 3 ml INH QID 01/15/21 Magnesium Oxide [Magnesium] 400 mg PO DAILY 01/15/21 Melatonin 10 mg PO QPM 01/15/21 Potassium Chloride [Klor-Con 10] 20 meq PO DAILY 01/15/21 Vitamin B Complex 1 tab PO DAILY 01/15/21 Vitamin E 400 unit PO DAILY 01/15/21 estradioL [Estrace] 2 mg PO DAILY 01/15/21 predniSONE [Deltasone] 10 mg PO DAILY 01/15/21 Objective - Vital Signs/Intake & Output Reviewed Vital Signs: Yes Vital Signs: Vital Signs x48h Temp Pulse Pulse Resp BP Pulse Ox 01/16/21 07:47 36.4 C L 78 22 149/92 H 94 01/16/21 06:05 81 24 01/16/21 05:25 36.4 C L 73 20 140/81 H 95 Intake & Output: Intake & Output 01/13/21 01/14/21 01/15/21 01/16/21 23:59 23:59 23:59 22:59 Intake Total 250 3701.667 816 Output Total 125 200 150 Balance 125 3501.667 666 - Objective General Appearance: positive: No acute distress, Alert Eyes Bilateral: positive: Normal inspection, Conjunctivae nml ENT: positive: ENT inspection nml Neck: positive: Nml inspection Respiratory: positive: No respiratory distress, Wheezes (Faint expiratory wheezes.), Other (Air entry is much improved compared to yesterday.) Cardiovascular: positive: Regular rate & rhythm. negative: Irregularly irregular, Tachycardia Abdomen: positive: Non-tender, Other (Ventral hernia noted.). negative: No distention, Tenderness Skin: positive: Warm, Dry Extremities: positive: No pedal edema - Lab Results Fish Bones: 01/16/21 05:04 01/16/21 05:04 Other Labs: Lab Results x24hrs 01/16/21 01/16/21 Range/Units 05:04 05:04 WBC 13.7 H (4.8-10.8) x10^3/uL RBC 4.13 L (4.70-6.10) 10^6/uL Hgb 12.8 L (14.0-18.0) g/dL Hct 40.7 L (42.0-52.0) % MCV 98.5 H (80.0-94.0) fL MCH 31.0 (27.0-31.0) pg MCHC 31.4 L (32.0-36.0) g/dL RDW 15.1 H (12.0-15.0) % Plt Count 316 (130-450) 10^3/uL MPV 10.0 (7.4-11.4) fL Neut # (Auto) Not Reportable Lymph # (Auto) Not Reportable Iron # (Auto) Not Reportable Eos # (Auto) Not Reportable Baso # (Auto) Not Reportable Absolute Nucleated RBC Not Reportable Total Counted 100 Band Neuts % (Manual) 0 (0 - 10) % Abnorm Lymph % (Manual) 0 % Nucleated RBC % Not Reportable Neutrophils # (Manual) 10.1 H (1.5-6.6) 10^3/uL Lymphocytes # (Manual) 1.8 (1.5-3.5) 10^3/uL Monocytes # (Manual) 1.8 H (0.0-1.0) 10^3/uL Eosinophils # (Manual) 0.0 (0-0.7) 10^3/uL Basophils # (Manual) 0.0 (0-0.1) 10^3/uL Differential Comment MANUAL DIFFERENTIAL WBC Morphology NORMAL APPEARANCE (NORMAL) Platelet Estimate NORMAL (130-450,000) (NORMAL) Platelet Morphology NORMAL APPEARANCE (NORMAL) RBC Morph Micro Appear NORMAL APPEARANCE (NORMAL) Sodium 140 (135-145) mmol/L Potassium 3.7 (3.5-5.0) mmol/L Chloride 104 (101-111) mmol/L Carbon Dioxide 24 (21-32) mmol/L Anion Gap 12.0 (6-13) BUN 12 (6-20) mg/dL Creatinine 0.7 (0.6-1.2) mg/dL Estimated GFR (MDRD) 113 (>89) Glucose 102 H (70-100) mg/dL Calcium 8.4 L (8.5-10.3) mg/dL ABX Reporting Has patient been on IV antibiotics over the past 48 hours?: Yes Assessment/Plan - Problem List (1) COPD exacerbation Impression: This is most definitely improved but he is still not ready to go home. He still has expiratory wheezes but much improved air movement compared to yesterday. We will continue with his current inhalers and day 2 of prednisone. We will start Mucinex today. I suspect he will be able to go home tomorrow and complete prednisone therapy on an outpatient basis. (2) Community acquired pneumonia Impression: Imaging was concerning for atypical pneumonia. He is not hypoxic and his white count continues to improve. Today is day 3 of azithromycin and ceftriaxone. We will look to switch to p.o. antibiotics tomorrow on discharge. (3) Alcohol abuse Impression: He has not shown any evidence of withdrawal. We will continue with thiamine and folate.
[2021-01-16] MEDS: guaiFENesin 600 MG TABLET PO SCH ×2 (08:52→21:56)
[2021-01-16] MEDS: AZITHROMYCIN INJ 500 MG in SODIUM CHLORIDE 0.9% 250 ML IV SCH (20:40)
[2021-01-16] MEDS: traZODone 50 MG TABLET PO SCH (21:56)
[2021-01-16] MEDS: cefTRIAXone 1 GM in SODIUM CHLORIDE 0.9% MINIBAG 100 ML IV SCH (21:58)
[2021-01-17] MEDS: SODIUM CHLORIDE FLUSH 0.9% 10 ML SYRINGE IVP SCH ×3 (00:20→16:19)
[2021-01-17 06:02] LABS: BASOPHILS # (AUTO) 0.1 10^3/uL (0.0-0.1); BASOPHILS % (AUTO) 0.6 %; EOSINOPHILS # (AUTO) 0.1 10^3/uL (0.0-0.7); EOSINOPHILS % (AUTO) 0.7 %; HCT - HEMATOCRIT 41.4 % (42.0-52.0); HGB - HEMOGLOBIN 12.9 g/dL (14.0-18.0); LYMPHOCYTES # (AUTO) 2.2 10^3/uL (1.5-3.5); LYMPHOCYTES % (AUTO) 18.1 %; MEAN CORPUSCULAR HEMOGLOBIN 30.9 pg (27.0-31.0); MEAN CORPUSCULAR HGB CONC 31.2 g/dL (32.0-36.0); MEAN CORPUSCULAR VOLUME 99.3 fL (80.0-94.0); MEAN PLATELET VOLUME 9.4 fL (7.4-11.4); MONOCYTES # (AUTO) 1.5 10^3/uL (0.0-1.0); MONOCYTES % (AUTO) 11.7 %; NEUTROPHILS # (AUTO) 8.5 10^3/uL (1.5-6.6); NEUTROPHILS % (AUTO) 68.3 %; PLT - PLATELET COUNT 310 10^3/uL (130-450); RED BLOOD COUNT 4.17 10^6/uL (4.70-6.10); RED CELL DISTRIBUTION WIDTH 15.2 % (12.0-15.0); WHITE BLOOD COUNT 12.4 x10^3/uL (4.8-10.8)
[2021-01-17 06:10] LABS: CALCIUM 8.6 mg/dL (8.5-10.3); CREATININE 0.7 mg/dL (0.6-1.2); POTASSIUM 3.7 mmol/L (3.5-5.0)
[2021-01-17] MEDS: chlordiazePOXIDE 25 MG CAPSULE PO SCH ×3 (06:38→20:33)
[2021-01-17] MEDS: FORMOTEROL FUMARATE NEB 20 MCG/2 ML INH SCH ×2 (07:39→18:22)
[2021-01-17] MEDS: IPRATROPIUM/ALBUTEROL 3 ML NEB INH SCH ×3 (07:39→14:48)
[2021-01-17] MEDS: BUDESONIDE 0.5 MG/2 ML NEB INH SCH ×2 (07:39→18:22)
[2021-01-17] MEDS: predniSONE 20 MG TABLET PO SCH (07:49)
[2021-01-17] MEDS: NICOTINE 7 MG PATCH TOP SCH (08:17)
[2021-01-17] MEDS: PRENATAL VITAMIN TABLET PO SCH (08:17)
[2021-01-17] MEDS: guaiFENesin 600 MG TABLET PO SCH ×2 (08:17→20:33)
[2021-01-17] MEDS: THIAMINE 100 MG TABLET PO SCH (08:17)
[2021-01-17] MEDS: ENOXAPARIN 40 MG/0.4 ML SYRINGE SUBQ SCH (08:17)
[2021-01-17] MEDS: SODIUM CHLORIDE 0.9% 1,000 ML IV SCH ×2 (08:18→17:20)
--- NOTE | 2021-01-17 14:32 | PROVIDER PROGRESS NOTE ---
Subjective - Prog Note Date Prog Note Date: 01/17/21 - Subjective Subjective: Continues to report feeling better each day. He has been ambulating but still feels short of breath. He feels he cannot get enough air like he normally would. He continues to have a cough. He feels like he needs one more day. Current Medications - Current Medications Current Medications: Active Medications Acetaminophen (Acetaminophen 325 Mg Tablet) 650 mg PO Q4HR PRN PRN Reason: Pain 1 to 4 Albuterol (Albuterol Neb 2.5 Mg/3 Ml) 2.5 mg INH RTQ4H PRN PRN Reason: Wheezing Albuterol/Ipratropium (Ipratropium/Albuterol 3 Ml Neb) 3 ml INH Q4HR PRN PRN Reason: Wheezing Last Admin: 01/15/21 10:27 Dose: 3 ml Documented by: Albuterol/Ipratropium (Ipratropium/Albuterol 3 Ml Neb) 3 ml INH RTQID [facility] Last Admin: 01/17/21 11:20 Dose: 3 ml Documented by: Budesonide (Budesonide 0.5 Mg/2 Ml Neb) 0.5 mg INH RTBID [facility] Last Admin: 01/17/21 07:39 Dose: 0.5 mg Documented by: Chlordiazepoxide HCl (Chlordiazepoxide 25 Mg Capsule) 25 mg PO Q8HR [facility] Last Admin: 01/17/21 13:46 Dose: 25 mg Documented by: Enoxaparin Sodium (Enoxaparin 40 Mg/0.4 Ml Syringe) 40 mg SUBQ DAILY [facility] Last Admin: 01/17/21 08:17 Dose: 40 mg Documented by: Formoterol Fumarate (Formoterol Fumarate Neb 20 Mcg/2 Ml) 20 mcg INH RTBID [facility] Last Admin: 01/17/21 07:39 Dose: 20 mcg Documented by: Guaifenesin (Guaifenesin/Dextromethorphan 10 Ml Udc) 10 ml PO Q6HR PRN PRN Reason: Cough Last Admin: 01/15/21 21:50 Dose: 10 ml Documented by: Guaifenesin (Guaifenesin 600 Mg Tablet) 600 mg PO BID [facility] Last Admin: 01/17/21 08:17 Dose: 600 mg Documented by: Sodium Chloride (Normal Saline 0.9%) 1,000 mls @ 100 mls/hr IV .Q10H [facility] Last Admin: 01/17/21 08:18 Dose: 100 mls/hr Documented by: Ceftriaxone Sodium 1 gm/ (Sodium Chloride) 100 mls @ 200 mls/hr IV Q24H [facility] Last Infusion: 01/16/21 22:28 Dose: Infused Documented by: Lorazepam (Lorazepam 2 Mg/Ml Vial) 1 mg IVP Q30M PRN; Protocol PRN Reason: CIWA >8 Nicotine (Nicotine 7 Mg Patch) 1 patch TOP DAILY [facility] Last Admin: 01/17/21 08:17 Dose: 1 patch Documented by: Ondansetron HCl (Ondansetron 4 Mg/2 Ml Vial) 4 mg IVP Q6HR PRN PRN Reason: Nausea / Vomiting Prednisone (Prednisone 20 Mg Tablet) 40 mg PO DAILYWM [facility] Last Admin: 01/17/21 07:49 Dose: 40 mg Documented by: Multivit/Folic Acid/Iron ( Vitamin Tablet) 1 tab PO DAILY [facility] Last Admin: 01/17/21 08:17 Dose: 1 tab Documented by: Sodium Chloride (Sodium Chloride Flush 0.9% 10 Ml Syringe) 10 ml IVP PRN PRN PRN Reason: NEEDED PER PROVIDER ORDERS Sodium Chloride (Sodium Chloride Flush 0.9% 10 Ml Syringe) 10 ml IVP 0100,0900,1700 [facility] Last Admin: 01/17/21 08:18 Dose: 10 ml Documented by: Thiamine HCl (Thiamine 100 Mg Tablet) 100 mg PO DAILY [facility] Last Admin: 01/17/21 08:17 Dose: 100 mg Documented by: Trazodone HCl (Trazodone 50 Mg Tablet) 50 mg PO QPM [facility] Last Admin: 01/16/21 21:56 Dose: 50 mg Documented by: Albuterol Sulfate [Proair Hfa] 2 puffs INH TID PRN 02/11/15 Tiotropium [place] [Spiriva] 1 puffs PO DAILY 03/26/16 Budesonide/Formoterol Fumarate [Symbicort 160-4.5 Mcg Inhaler] 2 puffs INH BID 01/14/21 Sertraline [Zoloft] 100 mg PO DAILY 01/14/21 traZODone [Desyrel] 100 mg PO QPM 01/14/21 Ascorbic Acid [Vitamin C] 1,000 mg PO DAILY 01/15/21 Cetirizine [ZyrTEC] 10 mg PO DAILY 01/15/21 Cholecalciferol [Vitamin D3] 25 mcg PO DAILY 01/15/21 Furosemide [Lasix] 40 mg PO DAILY 01/15/21 Ipratropium/Albuterol [Duoneb] 3 ml INH QID 01/15/21 Magnesium Oxide [Magnesium] 400 mg PO DAILY 01/15/21 Melatonin 10 mg PO QPM 01/15/21 Potassium Chloride [Klor-Con 10] 20 meq PO DAILY 01/15/21 Vitamin B Complex 1 tab PO DAILY 01/15/21 Vitamin E 400 unit PO DAILY 01/15/21 estradioL [Estrace] 2 mg PO DAILY 01/15/21 predniSONE [Deltasone] 10 mg PO DAILY 01/15/21 Objective - Vital Signs/Intake & Output Reviewed Vital Signs: Yes Vital Signs: Vital Signs x48h Temp Pulse Pulse Resp BP Pulse Ox 01/17/21 12:09 36.5 C 79 22 142/76 H 95 01/17/21 11:23 80 20 01/17/21 09:00 36.4 C L 78 24 146/96 H 93 01/17/21 07:42 80 24 Intake & Output: Intake & Output 01/15/21 01/16/21 01/16/21 01/17/21 00:59 00:59 23:59 23:59 Intake Total 1909 Output Total Balance 1909 - Objective General Appearance: positive: No acute distress, Alert Eyes Bilateral: positive: Normal inspection, Conjunctivae nml ENT: positive: ENT inspection nml Neck: positive: Nml inspection Respiratory: positive: No respiratory distress, Wheezes (Expiratory wheezes throughout.), Other (Tachypnic but not in distress.) Cardiovascular: positive: Regular rate & rhythm, No murmur. negative: Tachycardia Abdomen: positive: Other (Ventral hernia noted.). negative: No distention, Tenderness Skin: positive: Warm, Dry Extremities: positive: No pedal edema Neurologic/Psychiatric: negative: Disoriented to person, Disoriented to place - Lab Results Fish Bones: 01/17/21 05:54 01/17/21 05:54 Other Labs: Lab Results x24hrs 01/17/21 01/17/21 Range/Units 05:54 05:54 WBC 12.4 H (4.8-10.8) x10^3/uL RBC 4.17 L (4.70-6.10) 10^6/uL Hgb 12.9 L (14.0-18.0) g/dL Hct 41.4 L (42.0-52.0) % MCV 99.3 H (80.0-94.0) fL MCH 30.9 (27.0-31.0) pg MCHC 31.2 L (32.0-36.0) g/dL RDW 15.2 H (12.0-15.0) % Plt Count 310 (130-450) 10^3/uL MPV 9.4 (7.4-11.4) fL Neut # (Auto) 8.5 H (1.5-6.6) 10^3/uL Lymph # (Auto) 2.2 (1.5-3.5) 10^3/uL Clinch # (Auto) 1.5 H (0.0-1.0) 10^3/uL Eos # (Auto) 0.1 (0.0-0.7) 10^3/uL Baso # (Auto) 0.1 (0.0-0.1) 10^3/uL Absolute Nucleated RBC 0.00 x10^3/uL Nucleated RBC % 0.0 /100WBC Sodium 142 (135-145) mmol/L Potassium 3.7 (3.5-5.0) mmol/L Chloride 106 (101-111) mmol/L Carbon Dioxide 26 (21-32) mmol/L Anion Gap 10.0 (6-13) BUN 12 (6-20) mg/dL Creatinine 0.7 (0.6-1.2) mg/dL Estimated GFR (MDRD) 113 (>89) Glucose 100 (70-100) mg/dL Calcium 8.6 (8.5-10.3) mg/dL Assessment/Plan - Problem List (1) COPD exacerbation Impression: He continues to improve. He is able to ambulate within his room but still feels dyspneic and has expiratory wheezes. We will keep him hospitalized 1 more night but suspect he should be able to go home tomorrow. We will continue prednisone and his current inhalers. Today is day 4 of ceftriaxone and tomorrow will be the last day of this to treat the underlying pneumonia. (2) Community acquired pneumonia Impression: This is the cause of his COPD exacerbation. He has completed 3 days of azithromycin and today is day 4 of ceftriaxone. (3) Alcohol abuse Impression: He has not shown evidence of withdrawal. We will taper down the Librium today and continue thiamine and folate.
[2021-01-17] MEDS: traZODone 50 MG TABLET PO SCH (20:33)
[2021-01-17] MEDS: cefTRIAXone 1 GM in SODIUM CHLORIDE 0.9% MINIBAG 100 ML IV SCH (20:33)
[2021-01-18] MEDS: SODIUM CHLORIDE FLUSH 0.9% 10 ML SYRINGE IVP SCH ×3 (01:09→18:43)
[2021-01-18] MEDS: SODIUM CHLORIDE 0.9% 1,000 ML IV SCH ×2 (04:35→14:11)
[2021-01-18] MEDS: guaiFENesin/DEXTROMETHORPHAN 10 ML UDC PO PRN (05:04)
[2021-01-18 05:44] LABS: BASOPHILS # (AUTO) 0.1 10^3/uL (0.0-0.1); BASOPHILS % (AUTO) 0.5 %; EOSINOPHILS # (AUTO) 0.1 10^3/uL (0.0-0.7); EOSINOPHILS % (AUTO) 0.9 %; HGB - HEMOGLOBIN 12.8 g/dL (14.0-18.0); LYMPHOCYTES % (AUTO) 17.8 %; MEAN CORPUSCULAR HEMOGLOBIN 30.7 pg (27.0-31.0); MEAN CORPUSCULAR HGB CONC 31.2 g/dL (32.0-36.0); MEAN CORPUSCULAR VOLUME 98.3 fL (80.0-94.0); MEAN PLATELET VOLUME 9.5 fL (7.4-11.4); MONOCYTES # (AUTO) 1.2 10^3/uL (0.0-1.0); MONOCYTES % (AUTO) 10.4 %; PLT - PLATELET COUNT 332 10^3/uL (130-450); RED BLOOD COUNT 4.17 10^6/uL (4.70-6.10); RED CELL DISTRIBUTION WIDTH 15.1 % (12.0-15.0); WHITE BLOOD COUNT 11.5 x10^3/uL (4.8-10.8)
[2021-01-18 05:53] LABS: CALCIUM 8.7 mg/dL (8.5-10.3); CREATININE 0.7 mg/dL (0.6-1.2); POTASSIUM 3.4 mmol/L (3.5-5.0)
[2021-01-18] MEDS: IPRATROPIUM/ALBUTEROL 3 ML NEB INH SCH ×4 (07:03→18:12)
[2021-01-18] MEDS: FORMOTEROL FUMARATE NEB 20 MCG/2 ML INH SCH ×2 (07:04→18:12)
[2021-01-18] MEDS: BUDESONIDE 0.5 MG/2 ML NEB INH SCH ×2 (07:04→18:12)
[2021-01-18 08:16] LABS: ABG BASE EXCESS -2.2 mmol/L (-2.0-3.0); ABG OXYGEN SATURATION 90 % (94-98); ABG PCO2 47 mmHg (34-45); ABG PH 7.33 (7.35-7.45); ABG PO2 59 mmHg (80-100); ABG TCO2 25.4 MMOL/L (21.0-29.0); ALLEN TEST POSITIVE
[2021-01-18] MEDS: PRENATAL VITAMIN TABLET PO SCH (08:25)
[2021-01-18] MEDS: guaiFENesin 600 MG TABLET PO SCH ×2 (08:25→20:59)
[2021-01-18] MEDS: predniSONE 20 MG TABLET PO SCH (08:25)
[2021-01-18] MEDS: chlordiazePOXIDE 25 MG CAPSULE PO SCH ×2 (08:26→20:59)
[2021-01-18] MEDS: NICOTINE 7 MG PATCH TOP SCH (08:26)
[2021-01-18] MEDS: THIAMINE 100 MG TABLET PO SCH (08:26)
[2021-01-18] MEDS: ENOXAPARIN 40 MG/0.4 ML SYRINGE SUBQ SCH (08:30)
--- NOTE | 2021-01-18 12:09 | PROVIDER PROGRESS NOTE ---
Subjective - Prog Note Date Prog Note Date: 01/18/21 Prog Note Time: 12:03 - Subjective Pt reports feeling: Improved Subjective: Francisco is a 65 year old male with COPD exacerbation and pneumonia. He is feeling better today but still has persistent SOB which sometimes causes him to feel panicked. He is also coughing frequently and experiences pain on the left side of his ventral hernia when he does so. His cough is less productive now. He completed a course of azithromycin and today is his last day of ceftriaxone. On admission, WBC count was 21.4 and has now decreased to 11.5. His breathing appears labored. ABG results: pH 7.33, pCO2 47, pO2 59, HCO3 24. Potassium is 3.4. Current Medications - Current Medications Current Medications: Active Medications Acetaminophen (Acetaminophen 325 Mg Tablet) 650 mg PO Q4HR PRN PRN Reason: Pain 1 to 4 Albuterol (Albuterol Neb 2.5 Mg/3 Ml) 2.5 mg INH RTQ4H PRN PRN Reason: Wheezing Last Admin: 01/17/21 18:22 Dose: 2.5 mg Documented by: Albuterol/Ipratropium (Ipratropium/Albuterol 3 Ml Neb) 3 ml INH Q4HR PRN PRN Reason: Wheezing Last Admin: 01/15/21 10:27 Dose: 3 ml Documented by: Albuterol/Ipratropium (Ipratropium/Albuterol 3 Ml Neb) 3 ml INH RTQID [facility] Last Admin: 01/18/21 10:57 Dose: 3 ml Documented by: Budesonide (Budesonide 0.5 Mg/2 Ml Neb) 0.5 mg INH RTBID [facility] Last Admin: 01/18/21 07:04 Dose: 0.5 mg Documented by: Chlordiazepoxide HCl (Chlordiazepoxide 25 Mg Capsule) 25 mg PO BID [facility] Last Admin: 01/18/21 08:26 Dose: 25 mg Documented by: Enoxaparin Sodium (Enoxaparin 40 Mg/0.4 Ml Syringe) 40 mg SUBQ DAILY [facility] Last Admin: 01/18/21 08:30 Dose: 40 mg Documented by: Formoterol Fumarate (Formoterol Fumarate Neb 20 Mcg/2 Ml) 20 mcg INH RTBID [facility] Last Admin: 01/18/21 07:04 Dose: 20 mcg Documented by: Guaifenesin (Guaifenesin/Dextromethorphan 10 Ml Udc) 10 ml PO Q6HR PRN PRN Reason: Cough Last Admin: 01/18/21 05:04 Dose: 10 ml Documented by: Guaifenesin (Guaifenesin 600 Mg Tablet) 600 mg PO BID [facility] Last Admin: 01/18/21 08:25 Dose: 600 mg Documented by: Sodium Chloride (Normal Saline 0.9%) 1,000 mls @ 100 mls/hr IV .Q10H [facility] Last Admin: 01/18/21 04:35 Dose: 100 mls/hr Documented by: Ceftriaxone Sodium 1 gm/ (Sodium Chloride) 100 mls @ 200 mls/hr IV Q24H [facility] Last Infusion: 01/17/21 21:03 Dose: Infused Documented by: Lorazepam (Lorazepam 2 Mg/Ml Vial) 1 mg IVP Q30M PRN; Protocol PRN Reason: CIWA >8 Nicotine (Nicotine 7 Mg Patch) 1 patch TOP DAILY [facility] Last Admin: 01/18/21 08:26 Dose: 1 patch Documented by: Ondansetron HCl (Ondansetron 4 Mg/2 Ml Vial) 4 mg IVP Q6HR PRN PRN Reason: Nausea / Vomiting Prednisone (Prednisone 20 Mg Tablet) 40 mg PO DAILYWM [facility] Last Admin: 01/18/21 08:25 Dose: 40 mg Documented by: Multivit/Folic Acid/Iron ( Vitamin Tablet) 1 tab PO DAILY [facility] Last Admin: 01/18/21 08:25 Dose: 1 tab Documented by: Sodium Chloride (Sodium Chloride Flush 0.9% 10 Ml Syringe) 10 ml IVP PRN PRN PRN Reason: NEEDED PER PROVIDER ORDERS Sodium Chloride (Sodium Chloride Flush 0.9% 10 Ml Syringe) 10 ml IVP 0100,0900,1700 [facility] Last Admin: 01/18/21 08:26 Dose: 10 ml Documented by: Thiamine HCl (Thiamine 100 Mg Tablet) 100 mg PO DAILY [facility] Last Admin: 01/18/21 08:26 Dose: 100 mg Documented by: Trazodone HCl (Trazodone 50 Mg Tablet) 50 mg PO QPM [facility] Last Admin: 01/17/21 20:33 Dose: 50 mg Documented by: Albuterol Sulfate [Proair Hfa] 2 puffs INH TID PRN 02/11/15 Tiotropium [place] [Spiriva] 1 puffs PO DAILY 03/26/16 Budesonide/Formoterol Fumarate [Symbicort 160-4.5 Mcg Inhaler] 2 puffs INH BID 01/14/21 Sertraline [Zoloft] 100 mg PO DAILY 01/14/21 traZODone [Desyrel] 100 mg PO QPM 01/14/21 Ascorbic Acid [Vitamin C] 1,000 mg PO DAILY 01/15/21 Cetirizine [ZyrTEC] 10 mg PO DAILY 01/15/21 Cholecalciferol [Vitamin D3] 25 mcg PO DAILY 01/15/21 Furosemide [Lasix] 40 mg PO DAILY 01/15/21 Ipratropium/Albuterol [Duoneb] 3 ml INH QID 01/15/21 Magnesium Oxide [Magnesium] 400 mg PO DAILY 01/15/21 Melatonin 10 mg PO QPM 01/15/21 Potassium Chloride [Klor-Con 10] 20 meq PO DAILY 01/15/21 Vitamin B Complex 1 tab PO DAILY 01/15/21 Vitamin E 400 unit PO DAILY 01/15/21 estradioL [Estrace] 2 mg PO DAILY 01/15/21 predniSONE [Deltasone] 10 mg PO DAILY 01/15/21 Objective - Vital Signs/Intake & Output Reviewed Vital Signs: Yes Vital Signs: Vital Signs x48h Temp Pulse Pulse Resp BP Pulse Ox 01/18/21 11:03 81 22 01/18/21 08:41 36.8 C 85 20 152/86 H 92 01/18/21 07:06 82 22 01/18/21 05:58 36.4 C L 78 21 147/84 H 91 L Intake & Output: Intake & Output 01/16/21 01/16/21 01/17/21 01/18/21 00:59 23:59 23:59 23:59 Intake Total 3703.333 1415 Output Total Balance 3703.333 1415 - Objective General Appearance: positive: No acute distress, Alert Eyes Bilateral: positive: PERRL, EOMI ENT: positive: No signs of dehydration Neck: positive: No JVD. negative: Stiff neck Respiratory: positive: Chest non-tender. negative: Breath sounds nml (Lungs are extremely quiet), Wheezes, Rales, Rhonchi Cardiovascular: positive: Regular rate & rhythm, No murmur. negative: Gallop/S4 Abdomen: positive: Non-tender, Nml bowel sounds, Other (Large ventral hernia) Skin: positive: No rash, Warm, Dry Extremities: positive: Non-tender, No pedal edema Neurologic/Psychiatric: positive: Oriented x3, CN's nml (2-12) - Lab Results Fish Bones: 01/18/21 05:12 01/18/21 05:12 Other Labs: Lab Results x24hrs 01/18/21 01/18/21 01/18/21 Range/Units 07:45 05:12 05:12 WBC 11.5 H (4.8-10.8) x10^3/uL RBC 4.17 L (4.70-6.10) 10^6/uL Hgb 12.8 L (14.0-18.0) g/dL Hct 41.0 L (42.0-52.0) % MCV 98.3 H (80.0-94.0) fL MCH 30.7 (27.0-31.0) pg MCHC 31.2 L (32.0-36.0) g/dL RDW 15.1 H (12.0-15.0) % Plt Count 332 (130-450) 10^3/uL MPV 9.5 (7.4-11.4) fL Neut # (Auto) 8.0 H (1.5-6.6) 10^3/uL Lymph # (Auto) 2.0 (1.5-3.5) 10^3/uL [place] # (Auto) 1.2 H (0.0-1.0) 10^3/uL Eos # (Auto) 0.1 (0.0-0.7) 10^3/uL Baso # (Auto) 0.1 (0.0-0.1) 10^3/uL Absolute Nucleated RBC 0.00 x10^3/uL Nucleated RBC % 0.0 /100WBC Bld Gas Analysis Time 0805 Sample Site RIGHT RADIAL ABG pH 7.33 L (7.35-7.45) ABG pCO2 47 H (34-45) mmHg ABG pO2 59 L (80-100) mmHg ABG HCO3 24.0 (22.0-26.0) mmol/L ABG Total CO2 25.4 (21.0-29.0) MMOL/L ABG O2 Saturation 90 L (94-98) % ABG Base Excess -2.2 L (-2.0-3.0) mmol/L [place]anga Test POSITIVE Room Air YES Sodium 141 (135-145) mmol/L Potassium 3.4 L (3.5-5.0) mmol/L Chloride 103 (101-111) mmol/L Carbon Dioxide 28 (21-32) mmol/L Anion Gap 10.0 (6-13) BUN 12 (6-20) mg/dL Creatinine 0.7 (0.6-1.2) mg/dL Estimated GFR (MDRD) 113 (>89) Glucose 112 H (70-100) mg/dL Calcium 8.7 (8.5-10.3) mg/dL ABX Reporting Has patient been on IV antibiotics over the past 48 hours?: Yes Assessment/Plan - Problem List (1) COPD exacerbation Impression: He continues to improve but has persistent coughing and shortness of breath. He as able to walk around the room but this makes him very dyspneic. The team had hoped he would be able to go home today, however his persistent symptoms and labored breathing prompted respiratory therapy to get an ABG which shows a respiratory acidosis as a result of his COPD exacerbation. pH 7.33, pCO2 47, pO2 59, HCO3 24. We will continue prednisone and his current inhalers and suspect he will be able to be discharged tomorrow. (2) Community acquired pneumonia Impression: This is the cause of his COPD exacerbation. He has completed 3 days of azithromycin and today is his last day a 5 day course of ceftriaxone. WBC count down from 21.4 to 11.5. (3) Hypokalemia Impression: Potassium today is 3.4. Will supplement with 20 mEq PO potassium. (4) Alcohol abuse Impression: Librium taper started yesterday. Decreased from 25mg q 8 hours to 25mg BID. Plan to discontinue Librium since he has no shown any evidence of withdrawal. Continue thiamine and folate.
[2021-01-18] MEDS ORDERED: POTASSIUM CHLORIDE 20 MEQ TABLET PO ONE (12:33)
[2021-01-18] MEDS: traZODone 50 MG TABLET PO SCH (20:59)
[2021-01-18] MEDS: cefTRIAXone 1 GM in SODIUM CHLORIDE 0.9% MINIBAG 100 ML IV SCH (21:00)
[2021-01-19] MEDS: guaiFENesin/DEXTROMETHORPHAN 10 ML UDC PO PRN ×2 (00:52→06:35)
[2021-01-19] MEDS: SODIUM CHLORIDE FLUSH 0.9% 10 ML SYRINGE IVP SCH ×2 (00:52→10:43)
[2021-01-19] MEDS: SODIUM CHLORIDE 0.9% 1,000 ML IV SCH (00:52)
[2021-01-19 05:25] LABS: BASOPHILS # (AUTO) 0.1 10^3/uL (0.0-0.1); BASOPHILS % (AUTO) 0.7 %; EOSINOPHILS # (AUTO) 0.1 10^3/uL (0.0-0.7); EOSINOPHILS % (AUTO) 1.1 %; HGB - HEMOGLOBIN 13.2 g/dL (14.0-18.0); LYMPHOCYTES # (AUTO) 2.2 10^3/uL (1.5-3.5); LYMPHOCYTES % (AUTO) 18.2 %; MEAN CORPUSCULAR HEMOGLOBIN 30.9 pg (27.0-31.0); MEAN CORPUSCULAR HGB CONC 31.4 g/dL (32.0-36.0); MEAN CORPUSCULAR VOLUME 98.4 fL (80.0-94.0); MEAN PLATELET VOLUME 9.5 fL (7.4-11.4); MONOCYTES # (AUTO) 1.4 10^3/uL (0.0-1.0); MONOCYTES % (AUTO) 11.8 %; NEUTROPHILS % (AUTO) 67.8 %; PLT - PLATELET COUNT 338 10^3/uL (130-450); RED BLOOD COUNT 4.27 10^6/uL (4.70-6.10); RED CELL DISTRIBUTION WIDTH 14.9 % (12.0-15.0); WHITE BLOOD COUNT 11.8 x10^3/uL (4.8-10.8)
[2021-01-19 05:34] LABS: CALCIUM 8.7 mg/dL (8.5-10.3); CREATININE 0.8 mg/dL (0.6-1.2); POTASSIUM 3.7 mmol/L (3.5-5.0)
[2021-01-19] MEDS: FORMOTEROL FUMARATE NEB 20 MCG/2 ML INH SCH (06:54)
[2021-01-19] MEDS: IPRATROPIUM/ALBUTEROL 3 ML NEB INH SCH ×2 (06:54→11:01)
[2021-01-19] MEDS: BUDESONIDE 0.5 MG/2 ML NEB INH SCH (06:54)
[2021-01-19] MEDS: predniSONE 20 MG TABLET PO SCH (08:48)
[2021-01-19] MEDS: NICOTINE 7 MG PATCH TOP SCH (08:48)
[2021-01-19] MEDS: THIAMINE 100 MG TABLET PO SCH (08:48)
[2021-01-19] MEDS: PRENATAL VITAMIN TABLET PO SCH (08:49)
[2021-01-19] MEDS: guaiFENesin 600 MG TABLET PO SCH (08:49)
[2021-01-19] MEDS: chlordiazePOXIDE 25 MG CAPSULE PO SCH (08:49)
[2021-01-19] MEDS: ENOXAPARIN 40 MG/0.4 ML SYRINGE SUBQ SCH (08:50)
--- NOTE | 2021-01-19 10:15 | DISCHARGE SUMMARY ---
Discharge Summary Admit Date: 01/14/21 Discharge Date: 01/19/21 Discharging Provider: Ada Davis MD Primary Care Provider: Maximo Welch MD Code Status: Attempt Resuscitation Condition at Discharge: Fair Discharge Disposition: 01 Home, Self Care - DIAGNOSES Discharge Diagnoses with Status of Each Condition: 1. community-acquired pneumonia 2. Acute respiratory failure with hypoxia 3. COPD with exacerbation 4. Chronic alcohol abuse 5. Insomnia 6. Obstructive sleep apnea 7. Multiple pulmonary nodules 8. Thyroid nodule 9. Recurrent Ventral hernia - HPI History of Present Illness: Is a 65-year-old male with medical history significant for COPD, insomnia, depression, history of prostate cancer status post prostatectomy, alcohol abuse and ventral hernia who presented to the ED with worsening dyspnea. His symptoms have been going on for the past 4 to 5 days. He finally came in today because he could not catch his breath. In the ED he was noted to have an oxygen saturation of 86% on room air. He was tachypneic with respiratory rate in the 30s and tripoding. Work-up included CBC which showed a white blood cell count of 21. He also had a CT angio of the chest which was negative for PE but c oncerning for atypical pneumonia. As a result he was presented for admission for further treatment. He reported testing positive for Covid on December 01, 2020 however he was asymptomatic. At bedside he appears dyspneic. He intermittently coughs and it is productive of a thick greenish/yellowish sputum. He denies chest pain, abdominal pain, fever or chills. He reported nausea but no vomiting. He has a significant ventral hernia. - Past Medical History Cardiovascular: reports: None Respiratory: reports: Asthma, COPD Endocrine/Autoimmune: reports: None GI: reports: Other (ventral hernia) : reports: None HEENT: reports: None Psych: reports: Depression Musculoskeletal: reports: None Derm: reports: None MRSA Hx?: No Other Past Medical History: History of prostate cancer status post prostatectomy - Past Surgical History General: reports: Appendectomy HEENT: reports: Cataracts - CONSULTS | PROCEDURES Procedures: Chest x-ray with reticular interstitial opacities consistent with chronic int erstitial lung disease that are redemonstrated when compared to the norm over first 2020 x-ray and December 01, 2020 x-ray. Slight increased indistinct groundglass opacities in the lung bases may reflect superimposed acute atypical pneumonia. This gentleman was Covid positive in November 2020 and treated for Covid at that time. Chest thorax CT angiogram without intraluminal filling defects to suggest pulmonary embolism. There is enlargement of the pulmonary arteries with the main coronary artery measuring up to 3.1 cm suggestive of pulmonary arterial hypertension. Severe paraseptal and centrilobular emphysema redemonstrated. Indistinct nodule within the right lower lobe which is new from prior study of January 15, 2020. Indistinct small groundglass opacities redemonstrated with th e left lingula. Consider follow-up chest CT in 3 to 6 months to demonstrate resolution of inflammation/nodules. Right thyroid nodule is 1.5 cm. If clinically indicated further evaluation may be needed with thyroid ultrasound. - HOSPITAL COURSE Hospital Course: He was placed on empiric antibiotic therapy with ceftriaxone and azithromycin. We reviewed his previous chart where he was seen for Covid positive status in November 2020 and seen by his primary care provider for possible Covid pneumonia that did not require hospitalization. We also saw in the chart that he was referred for obstructive sleep apnea evaluation to the sleep lab. He was also placed on short acting nebulizers and inhaled steroids. Is that he is not compliant with his use of long-acting bronchodilators because of cost. It is prohibitive. As such social work and discharge planning spent time verifying what type of insurance he has, and where there are ways for us to reduce his drug cost. We have stopped his handheld inhalers and are sending him home with albuterol, ipratropium, Pulmicort, and a nebulizer machine. At discharge he is still more short of breath than he would like. He gets easy tachypnea with just speaking more than 5 or 6 minutes. He gets tachypneic with his getting up to go to the bathroom and coming back. But he is able to do so without assistance. His main complaint during his stay, in addition to dyspnea exertion, was his ventral hernia pain. He has quite a bit of coughing and he feels like his ventral hernia is getting bigger especially in the lateral left side. He can actually feel like his "muscle is tearing" there. He does have binders at home that he did not bring with him into the hospital. Blood cultures were negative. He had mild hypokalemia during his stay. At discharge temperature was 36.4. Heart rate 91. Blood pressure 156/80. During his stay he was consistently hypertensive in the 150s systolic. Diastolic was in the 80s. We did treat him as possible alcohol withdrawal but he did not have any tachycardia, or excessive hypertension. His lungs are still very quiet with diminished breath sounds diffusely. Scant wheezing in the upper lung saucedo. Barrel chest. Regular rate and rhythm. Distant cardiac tones. No murmurs. The abdomen is obese, soft, nontender overall. However he has mild tenderness over the left lateral abdominal wall where his ventral hernia is quite large but easily reducible. He does not have any edema. I do not feel a liver edge. Greater than 30 minutes was spent coordinating discharge. I am ordering home nebulizer medications as well as a nebulizer machine to treat his COPD. You will be sent home on albuterol, ipratropium, and inhaled budesonide.He is also being discharged on oxygen.At rest, room air saturations are 95%. However he becomes hypoxic with ambulation and saturations dropped to 86% on room air. He is requiring 2 L nasal cannula to achieve a saturation of 93% during ambulation. As such I am ordering home oxygen with exertion, 2 L. And no oxygen at rest. This is to treat his COPD with resultant hypoxemia. I have recommended that he be seen by general surgery in follow-up for the enlarging ventral hernia that he regards to symptomatic with regards to pain in the muscle but not change in bowel habits. I have also asked him to make sure he follows up with the sleep lab for his obstructive sleep apnea. With his primary care provider he needs to follow-up with the findings on CT scan showing pulmonary nodules and thyroid nodule. He should probably have a repeat CT scan in 3 to 6 months. I would also recommend that he be seen for pulmonary rehab. That would mean he needs to be referred for pulmonary function studies. He already has a referral to pulmonology at [facility]. - ALLERGIES Allergies/Adverse Reactions: Allergies Allergy/AdvReac Type Severity Reaction Status Date / Time No Known Drug Allergies Allergy Verified 09/18/19 19:07 - MEDICATIONS Home Medications: Ambulatory Orders Medication Instructions Recorded Confirmed Sertraline [Zoloft] 100 mg PO DAILY 01/14/21 01/15/21 traZODone [Desyrel] 100 mg PO QPM 01/14/21 01/15/21 Ascorbic Acid [Vitamin C] 1,000 mg PO DAILY 01/15/21 01/15/21 Cetirizine [ZyrTEC] 10 mg PO DAILY 01/15/21 01/15/21 Cholecalciferol [Vitamin D3] 25 mcg PO DAILY 01/15/21 01/15/21 Furosemide [Lasix] 40 mg PO DAILY 01/15/21 01/15/21 Ipratropium/Albuterol [Duoneb] 3 ml INH QID 01/15/21 01/15/21 Magnesium Oxide [Magnesium] 400 mg PO DAILY 01/15/21 01/15/21 Melatonin 10 mg PO QPM 01/15/21 01/15/21 Potassium Chloride [Klor-Con 10] 20 meq PO DAILY 01/15/21 01/15/21 Vitamin B Complex 1 tab PO DAILY 01/15/21 01/15/21 Vitamin E 400 unit PO DAILY 01/15/21 01/15/21 estradioL [Estrace] 2 mg PO DAILY 01/15/21 01/15/21 predniSONE [Deltasone] 10 mg PO DAILY 01/15/21 01/15/21 Albuterol 2.5 mg INH RTQ4H PRN #120 neb 01/19/21 Budesonide [Pulmicort] 0.5 mg INH RTBID #60 neb 01/19/21 Thiamine [Vitamin B-1] 100 mg PO DAILY #30 tablet 01/19/21 - LABS Result Diagrams: 01/19/21 04:45 01/19/21 04:45
--- NOTE | 2021-01-19 11:07 | Discharge Plan ---
Discharge Plan Problem Reviewed?: Yes Disposition: Home, Self Care Condition: Fair Prescriptions: Amox/Clav 875/125 [Augmentin 875/125 Tab] 1 tablet PO Q12H 10 Days #4 tablet Diet: Regular Activity Restrictions: Activity as Tolerated Shower Restrictions: No Driving Restrictions: No Instruction Topics: Thyroid Common Probs, Chronic Lung Disease Prevent Infec, Chronic Lung Disease Exercise Plan, Disease Chronic Lung Quit Smoking, Oxygen Home Use, ED Nodule Solitary Pulmonary Health Concerns: You were admitted to the hospital because you went to the emergency room and were severely short of breath. You have known emphysema. You are felt to have obstructive sleep apnea while are not currently being evaluated by pulmonary specialty to verify that. Unfortunately you can afford some of your medications for emphysema and have not been able to take some of those medications. You also had Covid positive testing in November of this year. We felt that you had pneumonia on chest x-ray and CT scan. We treated you as community-acquired pneumonia with antibiotics. You were Covid negative this time. We went over your medication list and have changed you over to medications via a machine nebulizer to see if that would be easier and less expensive for you to use. As such we are stopping your Symbicort and Spiriva and changing you over to albuterol, ipratropium, and Perforomist. The first 2 or short acting bronchodilators and the Perforomist is a long-acting inhaled steroid. Your CT scan was abnormal. It showed pulmonary nodules, severe emphysema, and a thyroid nodule. Plan of Treatment: 1. Complete 2 more days of antibiotic therapy. We will be sending a prescription of antibiotics to your pharmacy. 2. We have sent [employer] a prescription for albuterol, ipratropium, and budesonide as well as the machine and tubing. You will also need oxygen temporarily. We are hoping that you will be able to come off oxygen in the next month or so. I am ordering home oxygen for you. You do not need oxygen when you are sitting down and watching TV or resting. However, when you get up to go to the bathroom/bathe/cook you will need 2 L of oxygen by nasal cannula. 3. Make sure you see your primary care provider in follow-up in the next 1 to 2 weeks. They will need to: A. Listen to your lungs to make sure your wheezing is stable B. Refer you for a CAT scan of your lungs in the next 3 to 6 months to make sure the nodules go away C. Refer you for evaluation of a thyroid nodule D. Verify that you get your medications from [facility] E. Refer you to cardiopulmonary rehab. We find that if you do rehabilitation for your lungs, your exercise endurance, breathing, energy are much improved and you live a longer/better life. F. Verify when you can come off oxygen 4. Please stop drinking. It will shorten your life span. In the meantime take a vitamin as well as a thiamine vitamin to help your bone marrow recover from chronic alcohol abuse. Care Goals: Overall care goal is to have a normal endurance without any shortness of breath with exertion, coughing, or phlegm production Assessment: Patient states he will follow through with his primary care provider and our recommendations Follow-Up Care: [facility] - Pulmonary No Smoking: If you smoke, Please STOP! Call for help. Follow-up with: Maximo Welch DO [Provider Admit Priv/Credential] -
[2021-01-19 12:16] VITALS: BP 170/85
== END 2021-01-19 12:45 | disposition home or self-care (01) | DRG 190 ==
LOC: EDUNIT# → EDBD → ED 17:39 → MS2 20:44
PROVIDERS: ADMIT Internal Medicine; ATTEND Specialist
DX: J44.0 Chronic obstructive pulmonary disease with (acute) lower respiratory infection (principal); J18.9 Pneumonia, unspecified organism; R09.02 Hypoxemia; F17.200 Nicotine dependence, unspecified, uncomplicated; Z20.822 Contact with and (suspected) exposure to COVID-19; J96.01 Acute respiratory failure with hypoxia; E87.6 Hypokalemia; J44.1 Chronic obstructive pulmonary disease with (acute) exacerbation; F10.10 Alcohol abuse, uncomplicated; G47.00 Insomnia, unspecified; G47.33 Obstructive sleep apnea (adult) (pediatric); F17.210 Nicotine dependence, cigarettes, uncomplicated; R91.8 Other nonspecific abnormal finding of lung field; E04.1 Nontoxic single thyroid nodule; K43.2 Incisional hernia without obstruction or gangrene; F32.9 Major depressive disorder, single episode, unspecified; Z86.16 Personal history of COVID-19; Z99.81 Dependence on supplemental oxygen; Z79.51 Long term (current) use of inhaled steroids; Z79.899 Other long term (current) drug therapy; Z85.46 Personal history of malignant neoplasm of prostate; Z90.79 Acquired absence of other genital organ(s); Z91.120 Patient's intentional underdosing of medication regimen due to financial hardship
CPT/HCPCS: 36415; 36600; 71045; 71275; 80048; 80053; 82803; 83690; 84484; 85025; 87040; 87631; 93005; 94640; 94664; 94761; 96365; 96375; 99284; 99285; A9270; J1650; J7512; J7626; Q9967; 0202U

== ENCOUNTER 2021-06-28 15:48 | Outpatient (CLI) | payer MEDICARE, MEDICAID ==
[2021-06-28 17:56] LABS: BASOPHILS # (AUTO) 0.1 10^3/uL (0.0-0.1); BASOPHILS % (AUTO) 0.7 %; EOSINOPHILS # (AUTO) 0.2 10^3/uL (0.0-0.7); EOSINOPHILS % (AUTO) 1.8 %; HCT - HEMATOCRIT 43.6 % (42.0-52.0); HGB - HEMOGLOBIN 14.2 g/dL (14.0-18.0); LYMPHOCYTES # (AUTO) 1.4 10^3/uL (1.5-3.5); LYMPHOCYTES % (AUTO) 10.3 %; MEAN CORPUSCULAR HGB CONC 32.6 g/dL (32.0-36.0); MEAN CORPUSCULAR VOLUME 98.2 fL (80.0-94.0); MEAN PLATELET VOLUME 9.7 fL (7.4-11.4); MONOCYTES # (AUTO) 1.3 10^3/uL (0.0-1.0); MONOCYTES % (AUTO) 9.1 %; NEUTROPHILS # (AUTO) 10.6 10^3/uL (1.5-6.6); NEUTROPHILS % (AUTO) 77.5 %; PLT - PLATELET COUNT 349 10^3/uL (130-450); RED BLOOD COUNT 4.44 10^6/uL (4.70-6.10); RED CELL DISTRIBUTION WIDTH 14.3 % (12.0-15.0); WHITE BLOOD COUNT 13.7 x10^3/uL (4.8-10.8)
== END 2021-06-28 15:49 | disposition home or self-care (01) ==
LOC: LAB.N 15:48
PROVIDERS: ATTEND Nurse Practitioner Family
DX: J44.1 Chronic obstructive pulmonary disease with (acute) exacerbation (principal); D72.829 Elevated white blood cell count, unspecified
CPT/HCPCS: 36415; 85025

== ENCOUNTER 2021-07-26 12:36 | Outpatient (CLI) | payer MEDICARE, MEDICAID ==
[2021-07-26 18:14] LABS: BASOPHILS # (AUTO) 0.1 10^3/uL (0.0-0.1); BASOPHILS % (AUTO) 0.8 %; EOSINOPHILS # (AUTO) 0.1 10^3/uL (0.0-0.7); EOSINOPHILS % (AUTO) 0.9 %; HCT - HEMATOCRIT 48.6 % (42.0-52.0); HGB - HEMOGLOBIN 15.8 g/dL (14.0-18.0); LYMPHOCYTES # (AUTO) 1.2 10^3/uL (1.5-3.5); LYMPHOCYTES % (AUTO) 7.5 %; MEAN CORPUSCULAR HGB CONC 32.5 g/dL (32.0-36.0); MEAN CORPUSCULAR VOLUME 98.6 fL (80.0-94.0); MEAN PLATELET VOLUME 10.1 fL (7.4-11.4); MONOCYTES # (AUTO) 1.1 10^3/uL (0.0-1.0); MONOCYTES % (AUTO) 6.7 %; NEUTROPHILS # (AUTO) 13.8 10^3/uL (1.5-6.6); NEUTROPHILS % (AUTO) 83.4 %; PLT - PLATELET COUNT 404 10^3/uL (130-450); RED BLOOD COUNT 4.93 10^6/uL (4.70-6.10); RED CELL DISTRIBUTION WIDTH 13.9 % (12.0-15.0); WHITE BLOOD COUNT 16.5 x10^3/uL (4.8-10.8)
== END 2021-07-26 12:37 | disposition home or self-care (01) ==
LOC: LAB.N 12:36
PROVIDERS: ATTEND Nurse Practitioner Family
DX: D72.829 Elevated white blood cell count, unspecified (principal)
CPT/HCPCS: 36415; 85025

== ENCOUNTER 2021-07-29 11:07 | Outpatient (CLI) | payer MEDICARE, MEDICAID ==
[2021-07-29 17:43] LABS: BASOPHILS # (AUTO) 0.1 10^3/uL (0.0-0.1); EOSINOPHILS # (AUTO) 0.2 10^3/uL (0.0-0.7); EOSINOPHILS % (AUTO) 1.5 %; HCT - HEMATOCRIT 47.1 % (42.0-52.0); HGB - HEMOGLOBIN 15.4 g/dL (14.0-18.0); LYMPHOCYTES # (AUTO) 2.5 10^3/uL (1.5-3.5); LYMPHOCYTES % (AUTO) 18.3 %; MEAN CORPUSCULAR HEMOGLOBIN 32.2 pg (27.0-31.0); MEAN CORPUSCULAR HGB CONC 32.7 g/dL (32.0-36.0); MEAN CORPUSCULAR VOLUME 98.5 fL (80.0-94.0); MEAN PLATELET VOLUME 10.3 fL (7.4-11.4); MONOCYTES # (AUTO) 1.5 10^3/uL (0.0-1.0); MONOCYTES % (AUTO) 11.5 %; PLT - PLATELET COUNT 365 10^3/uL (130-450); RED BLOOD COUNT 4.78 10^6/uL (4.70-6.10); RED CELL DISTRIBUTION WIDTH 13.8 % (12.0-15.0); WHITE BLOOD COUNT 13.4 x10^3/uL (4.8-10.8)
[2021-07-29 17:56] LABS: BUN - BLOOD UREA NITROGEN 17 mg/dL (6-20); CALCIUM 9.6 mg/dL (8.5-10.3); CARBON DIOXIDE - CO2 31 mmol/L (21-32); CHLORIDE 97 mmol/L (101-111); GFR - MDRD 75 (>89); GLUCOSE 92 mg/dL (70-100); SODIUM 139 mmol/L (135-145)
[2021-07-29 17:57] LABS: ALBUMIN 4.2 g/dL (3.2-5.5); ALBUMIN/GLOBULIN RATIO 1.4 (1.0-2.2); ALKALINE PHOSPHATASE 49 IU/L (42-121); ALT ALANINE AMINOTRANSFERASE 26 IU/L (10-60); AST ASPARTATE AMINOTRANSFERASE 22 IU/L (10-42); BILIRUBIN,TOTAL 0.9 mg/dL (0.2-1.0); CHOL/HDL RATIO 2.1 (<5.0); CHOLESTEROL 256 mg/dL; HDL CHOLESTEROL 122 mg/dL; LDL CHOLESTEROL,CALCULATED 107 mg/dL; LDL/HDL RATIO 0.9 (<3.6); TOTAL PROTEIN 7.1 g/dL (6.7-8.2); TRIGLYCERIDES 135 mg/dL; VLDL CHOLESTEROL 27 mg/dL
[2021-07-29 18:07] LABS: THYROID STIMULATING HORMONE 1.9 uIU/mL (0.34-5.60)
[2021-07-29 18:48] LABS: DIFFERENTIAL COMMENT MANUAL=AUTO DIFF; PLATELET ESTIMATE, MANUAL NORMAL (130-450,000) (NORMAL); PLATELET MORPHOLOGY NORMAL APPEARANCE (NORMAL); RBC MORPHOLOGY (MULTIPLE) NORMAL APPEARANCE (NORMAL); WBC MORPHOLOGY (MULTIPLE) NORMAL APPEARANCE (NORMAL)
== END 2021-07-29 11:08 | disposition home or self-care (01) ==
LOC: LAB.N 11:07
PROVIDERS: ATTEND Nurse Practitioner Family
DX: I10 Essential (primary) hypertension (principal); Z13.220 Encounter for screening for lipoid disorders; D72.829 Elevated white blood cell count, unspecified
CPT/HCPCS: 36415; 80053; 80061; 83721; 84443; 85025

== ENCOUNTER 2021-08-18 09:13 | Outpatient (CLI) | payer MEDICARE | END 2021-08-18 09:14 | disposition critical access hospital (66) | LOC: EMS 09:13 | DX: R06.02 Shortness of breath (principal); R50.9 Fever, unspecified; R05.9 Cough, unspecified; R06.2 Wheezing | CPT/HCPCS: A0425; A0427 ==

== ENCOUNTER 2021-08-18 09:36 | Inpatient (IN) | payer MEDICARE, MEDICAID ==
--- NOTE | 2021-08-18 10:09 | XRAY Report ---
PROCEDURE: Chest 1 View X-Ray INDICATIONS: Chest pain TECHNIQUE: One view of the chest was acquired. COMPARISON: 06/16/2021. FINDINGS: Surgical changes and devices: None. Lungs and pleura: No pleural effusions or pneumothorax. Emphysematous changes with apical predominan ce noted. Increased alveolar opacities in the lung bases bilaterally. Mediastinum: Mediastinal contours appear normal. Heart size is normal. Bones and chest wall: No suspicious bony lesions. Overlying soft tissues appear unremarkable. IMPRESSION: Bibasilar pneumonia, pulmonary edema or a combination of pneumonia and edema. Reviewed by: Lulu Rojo MD, PhD on 08/18/2021 10:08 AM PDT Approved by: Lulu Rojo MD, PhD on 08/18/2021 10:08 AM PDT Station ID: [id number]
[2021-08-18 10:12] LABS: BASOPHILS # (AUTO) 0.1 10^3/uL (0.0-0.1); BASOPHILS % (AUTO) 0.3 %; LYMPHOCYTES # (AUTO) 0.4 10^3/uL (1.5-3.5); LYMPHOCYTES % (AUTO) 1.8 %; MEAN CORPUSCULAR HEMOGLOBIN 32.1 pg (27.0-31.0); MEAN CORPUSCULAR HGB CONC 32.6 g/dL (32.0-36.0); MEAN CORPUSCULAR VOLUME 98.6 fL (80.0-94.0); MEAN PLATELET VOLUME 9.5 fL (7.4-11.4); MONOCYTES # (AUTO) 3.4 10^3/uL (0.0-1.0); MONOCYTES % (AUTO) 14.8 %; NEUTROPHILS # (AUTO) 18.9 10^3/uL (1.5-6.6); NEUTROPHILS % (AUTO) 82.7 %; PLT - PLATELET COUNT 307 10^3/uL (130-450); RED BLOOD COUNT 4.36 10^6/uL (4.70-6.10); RED CELL DISTRIBUTION WIDTH 13.7 % (12.0-15.0); WHITE BLOOD COUNT 22.9 x10^3/uL (4.8-10.8)
[2021-08-18 10:15] LABS: SLIDE REVIEW? Indicated
[2021-08-18 10:27] LABS: RBC MORPHOLOGY (MULTIPLE) 2+ ANISOCYTOSIS (NORMAL)
[2021-08-18] MEDS ORDERED: ALBUTEROL NEB 2.5 MG/3 ML INH STA (10:28)
[2021-08-18] MEDS ORDERED: IPRATROPIUM/ALBUTEROL 3 ML NEB INH STA (10:28)
[2021-08-18] MEDS ORDERED: DEXAMETHASONE 10 MG/ML VIAL IV STA (10:28)
[2021-08-18 10:35] LABS: ALBUMIN 3.8 g/dL (3.2-5.5); ALBUMIN/GLOBULIN RATIO 1.1 (1.0-2.2); BILIRUBIN,TOTAL 1.2 mg/dL (0.2-1.0); CALCIUM 9.1 mg/dL (8.5-10.3); CREATININE 0.9 mg/dL (0.6-1.2); POTASSIUM 4.1 mmol/L (3.5-5.0); TOTAL PROTEIN 7.4 g/dL (6.7-8.2)
[2021-08-18] MEDS ORDERED: cefTRIAXone 2 GM in SODIUM CHLORIDE 0.9% MINIBAG 100 ML IV STA (11:05)
[2021-08-18] MEDS ORDERED: AZITHROMYCIN INJ 500 MG in SODIUM CHLORIDE 0.9% 250 ML IV STA (11:05)
[2021-08-18] MEDS ORDERED: DEXAMETHASONE 10 MG/ML VIAL ONE (11:09)
--- NOTE | 2021-08-18 11:15 | ED Physician Documentation ---
History of Present Illness - Stated complaint Stated Complaint: SOA/FEVER - Chief complaint Chief Complaint: Resp - History obtained from History obtained from: Patient - Additonal information Additional information: The patient comes to the emergency department chief complaint of a 2-1/2-day history of fevers and increased cough with increased shortness of breath. Patient normally uses 2 L of oxygen per nasal cannula [id number] at home for his chronic COPD and uses nebulizer treatments, but he states they are not helping. The patient has been using up to 4 L of oxygen because he has been feeling so short of breath. He states he measured temperatures up to 101 at home. He denies any nausea or vomiting. No chest pain. He states his abdominal muscles hurt from coughing. Review of Systems Ten Systems: 10 systems reviewed and negative Constitutional: reports: Fever, Fatigue, Sweats Eyes: reports: Reviewed and negative Ears: reports: Reviewed and negative Nose: reports: Reviewed and negative Throat: reports: Reviewed and negative Cardiac: reports: Reviewed and negative Respiratory: reports: Dyspnea, Cough GI: reports: Reviewed and negative : reports: Reviewed and negative Skin: reports: Reviewed and negative Musculoskeletal: reports: Reviewed and negative Neurologic: reports: Reviewed and negative Psychiatric: reports: Reviewed and negative Endocrine: reports: Reviewed and negative Immunocompromised: reports: Reviewed and negative PD PAST MEDICAL HISTORY - Past Medical History Past Medical History: Yes Cardiovascular: None Respiratory: Asthma, COPD Endocrine/Autoimmune: None GI: Other : None HEENT: None Psych: Depression Musculoskeletal: None Derm: None - Past Surgical History Past Surgical History: Yes General: Appendectomy HEENT: Cataracts - Present Medications Home Medications: Ambulatory Orders Medication Instructions Recorded Confirmed Sertraline [Zoloft] 100 mg PO DAILY 01/14/21 01/15/21 traZODone [Desyrel] 100 mg PO QPM 01/14/21 01/15/21 Ascorbic Acid [Vitamin C] 1,000 mg PO DAILY 01/15/21 01/15/21 Cetirizine [ZyrTEC] 10 mg PO DAILY 01/15/21 01/15/21 Cholecalciferol [Vitamin D3] 25 mcg PO DAILY 01/15/21 01/15/21 Furosemide [Lasix] 40 mg PO DAILY 01/15/21 01/15/21 Ipratropium/Albuterol [Duoneb] 3 ml INH QID 01/15/21 01/15/21 Magnesium Oxide [Magnesium] 400 mg PO DAILY 01/15/21 01/15/21 Melatonin 10 mg PO QPM 01/15/21 01/15/21 Potassium Chloride [Klor-Con 10] 20 meq PO DAILY 01/15/21 01/15/21 Vitamin B Complex 1 tab PO DAILY 01/15/21 01/15/21 Vitamin E 400 unit PO DAILY 01/15/21 01/15/21 estradioL [Estrace] 2 mg PO DAILY 01/15/21 01/15/21 predniSONE [Deltasone] 10 mg PO DAILY 01/15/21 01/15/21 Albuterol 2.5 mg INH RTQ4H PRN #120 neb 01/19/21 Amox/Clav 875/125 [Augmentin 1 tablet PO Q12H 10 Days #4 tablet 01/19/21 875/125 Tab] Budesonide [Pulmicort] 0.5 mg INH RTBID #60 neb 01/19/21 Thiamine [Vitamin B-1] 100 mg PO DAILY #30 tablet 01/19/21 Amox/Clav 875/125 [Augmentin] 1 each PO Q12H #14 tablet 06/16/21 Azithromycin 250 mg PO DAILY #6 tablet 06/16/21 predniSONE [Deltasone] 40 mg PO DAILY 5 Days #10 tablet 06/16/21 - Allergies Allergies/Adverse Reactions: Allergies Allergy/AdvReac Type Severity Reaction Status Date / Time No Known Drug Allergies Allergy Verified 08/18/21 09:49 - Social History Does the pt smoke?: Yes Smoking Status: Current every day smoker Does the pt drink ETOH?: No Does the pt have substance abuse?: No - Immunizations Immunizations are current?: Yes - POLST Patient has POLST: No POLST Status: Full Code PD ED PE NORMAL - Vitals Vital signs reviewed: Yes - General General: Alert and oriented X 3, Well developed/nourished, Other (Moderate respiratory distress) - HEENT HEENT: Atraumatic, PERRL, EOMI, Moist mucous membranes - Neck Neck: Supple, no meningeal sign - Cardiac Cardiac: RRR, No murmur - Respiratory Respiratory: Other (Markedly diminished breath sounds bilaterally with poor air movement. Faint, fine wheezes noted in upper lung saucedo. No rales. Moderately labored respirations. Speaks in short phrases. Intermittent dry coughing fits.) - Abdomen Abdomen: Soft, Non tender, Other (Large ventral abdominal hernia.) - Derm Derm: Normal color, Warm and dry, No rash - Extremities Extremities: No deformity, No edema - Neuro Neuro: Alert and oriented X 3, applied research director 2-12 intact, Normal speech - Psych Psych: Normal mood, Normal affect Results - Vitals Vitals: Vital Signs - 24 hr 08/18/21 09:42 Temperature 36.9 C Heart Rate 117 H Respiratory 35 H Rate Blood Pressure 136/90 H O2 Saturation 95 Oxygen O2 Source Nasal cannula Oxygen Flow Rate 4 - EKG (time done) 1000 Rate: Rate (enter#) (110) Rhythm: Sinus tachycardia Onia: Normal Intervals: Normal MT QRS: Normal Ischemia: Normal ST segments Compare to prior EKG: Old EKG unavailable Computer interpretation: Agree with computer - Labs Labs: Laboratory Tests 08/18/21 08/18/21 08/18/21 10:05 10:05 10:05 WBC 22.9 H RBC 4.36 L Hgb 14.0 Hct 43.0 MCV 98.6 H MCH 32.1 H MCHC 32.6 RDW 13.7 Plt Count 307 MPV 9.5 Neut # (Auto) 18.9 H Lymph # (Auto) 0.4 L [place] # (Auto) 3.4 H Eos # (Auto) 0.0 Baso # (Auto) 0.1 Absolute Nucleated RBC 0.00 Nucleated RBC % 0.0 Manual Slide Review Indicated RBC Morph Micro Appear 2+ ANISOCYTOSIS Sodium 138 Potassium 4.1 Chloride 99 L Carbon Dioxide 28 Anion Gap 11.0 BUN 22 H Creatinine 0.9 Estimated GFR (MDRD) 84 L Glucose 138 H Calcium 9.1 Total Bilirubin 1.2 H AST 16 ALT 18 Alkaline Phosphatase 57 Troponin I High Sens 8.2 Total Protein 7.4 Albumin 3.8 Globulin 3.6 Albumin/Globulin Ratio 1.1 Lipase 23 - Rads (name of study) Chest x-ray Radiology: Final report received, EMP read indepedently, See rad report (Bilateral basilar pneumonia) PD MEDICAL DECISION MAKING - ED course Complexity details: reviewed old records, reviewed results, re-evaluated p atient, considered differential, d/w patient ED course: The patient was treated with IV fluids, Decadron and both DuoNeb and plain albuterol nebulizer treatments. He was placed on 4 L of oxygen per nasal cannula with oxygen saturations ranging from the low to mid 90s. He remained in sinus tachycardia on the monitor.After receiving his x-ray results, he was started on antibiotics. He was worked up with laboratory studies, blood cultures, respiratory PCR, and as above, chest x-ray. I did speak with Dr. Mariscal, who did agree to admit him to his service. Departure - Departure Disposition: 02 Transfer Acute Care Hosp Clinical Impression: COPD exacerbation Pneumonia Qualifiers: Pneumonia type: due to unspecified organism Laterality: bilateral Lung location: lower lobe of lung Qualified Code(s): J18.9 - Pneumonia, unspecified organism Condition: Serious
[2021-08-18] MEDS ORDERED: IPRATROPIUM/ALBUTEROL 3 ML NEB INH ONE ×3 (11:37→17:47)
[2021-08-18 11:56] LABS: ABG HCO3 26.6 mmol/L (22.0-26.0); ABG PCO2 51 mmHg (34-45); ABG PH 7.34 (7.35-7.45); ABG PO2 56 mmHg (80-100)
[2021-08-18 11:57] LABS: ABG OXYGEN SATURATION 88 % (94-98); ABG TCO2 28.2 MMOL/L (21.0-29.0); ALLEN TEST POSITIVE
[2021-08-18 12:52] LABS: B. PARAPERTUSSIS- RESP PCR PAN NOT DETECTED; B. PERTUSSIS- RESP PCR PANEL NOT DETECTED; C. PNEUMONIAE- RESP PCR PANEL NOT DETECTED; CORONAVIRUS 229E-RESP PCR NOT DETECTED; CORONAVIRUS HKU1-RESP PCR NOT DETECTED; CORONAVIRUS NL63-RESP PCR NOT DETECTED; CORONAVIRUS OC43-RESP PCR NOT DETECTED; HUMAN METAPNEUMOVIRUS NOT DETECTED; INFLUENZA A- RESP PCR PANEL NOT DETECTED; INFLUENZA B - RESP PCR PANEL NOT DETECTED; M. PNEUMONIAE- RESP PCR PANEL NOT DETECTED; PARAINFLUENZA VIRUS 1 NOT DETECTED; PARAINFLUENZA VIRUS 2 NOT DETECTED; PARAINFLUENZA VIRUS 3 NOT DETECTED; PARAINFLUENZA VIRUS 4 NOT DETECTED; RHINOVIRUS/ENTEROVIRUS NOT DETECTED; RSV- RESP PCR PANEL NOT DETECTED; SARS-CoV-2 -RESP PCR PANEL NOT DETECTED
[2021-08-18] MEDS ORDERED: ONDANSETRON ODT 4 MG TABLET TL PRN (13:33)
--- NOTE | 2021-08-18 13:44 | HISTORY & PHYSICAL EXAMINATION ---
Chief Complaint - Chief Complaint Chief Complaint: Shortness of breath History of Present Illness - Admitted From Admitted From:: Home - History Obtained From Records Reviewed: [facility] History obtained from: Patient, ER Physician, EMR - History of Present Illness HPI Comment/Other: This is 66-year-old male with a past medical history significant for COPD on 2 L of oxygen with activity, history of prostate cancer status post prostatectomy, hypertension, alcohol abuse who presents today complaining of shortness of breath. He states he began feeling short of breath about 3 days ago. He has developed fevers and chills although he has not checked his temperature. He did a COVID test yesterday which was negative. He has had chest congestion and a productive cough with green sputum. He denies any chest pain. He has had wheezing and has tried his home inhalers without any relief. He continues to smoke a pack of cigarettes a day. He is vaccinated against COVID-19. He reports no lower extremity edema. He states his symptoms feel similar to when he was hospitalized last year around time. He is only on 2 L of oxygen with activity. In the emergency department, he was noted to be quite tachypneic and required 2 L of oxygen via nasal cannula. Chest x-ray suggested bilateral pneumonia. His white count is elevated at over 20,000. He was given antibiotics, steroids and nebulizer treatments. Given his ongoing symptoms, medicine was consulted for admission. We discussed goals of care and he would like to be a DNR. He is agreeable to mechanical ventilation if necessary. 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 His father from alcoholism. Living arrangement: At home Living Situation: With family Social History Notes: He lives at home with his daughter. He smokes a pack a day and has been doing so for 50+ years. He drinks a pint of alcohol a day - POLST Patient has POLST: No POLST Status: Full Code Meds/Allgy - Home Medications Home Medications: Ambulatory Orders Medication Instructions Recorded Confirmed Sertraline [Zoloft] 50 - 100 mg PO DAILY 01/14/21 08/18/21 traZODone [Desyrel] 50 - 100 mg PO QPM PRN 01/14/21 08/18/21 Ascorbic Acid [Vitamin C] 1,000 mg PO DAILY 01/15/21 08/18/21 Cetirizine [ZyrTEC] 10 mg PO DAILY PRN 01/15/21 08/18/21 Cholecalciferol [Vitamin D3] 25 mcg PO DAILY 01/15/21 08/18/21 Furosemide [Lasix] 20 mg PO DAILY 01/15/21 08/18/21 Ipratropium/Albuterol [Duoneb] 3 ml INH QID 01/15/21 08/18/21 Magnesium Oxide [Magnesium] 400 mg PO DAILY 01/15/21 08/18/21 Melatonin 10 mg PO QPM 01/15/21 08/18/21 Vitamin B Complex 1 tab PO DAILY 01/15/21 08/18/21 Vitamin E 400 unit PO DAILY 01/15/21 08/18/21 estradioL [Estrace] 2 mg PO DAILY 01/15/21 08/18/21 predniSONE [Deltasone] 15 mg PO DAILY 01/15/21 08/18/21 Albuterol 2.5 mg INH RTQ4H PRN #120 neb 01/19/21 08/18/21 Budesonide/Formoterol Fumarate 2 puffs INH BID 08/18/21 08/18/21 [Symbicort 160-4.5 Mcg Inhaler] Tiotropium [place] [Spiriva] 18 mcg INH DAILY 08/18/21 08/18/21 guaiFENesin [Mucinex] 600 mg PO BID 08/18/21 08/18/21 lisinopriL [Zestril] 5 mg PO DAILY 08/18/21 08/18/21 - Allergies Allergies/Adverse Reactions: Allergies Allergy/AdvReac Type Severity Reaction Status Date / Time No Known Drug Allergies Allergy Verified 08/18/21 09:49 Review of Systems - Constitutional Constitutional: reports: Fever, Chills, Malaise - Ears, Nose & Throat Ears, Nose & Throat: denies: Nasal discharge, Nasal congestion - Cardiovascular Cariovascular: reports: Exertional dyspnea, Decr. exercise tolerance. denies: Chest pain, Edema - Respiratory Respiratory: reports: Cough, Sputum production, Wheezing, SOB at rest, SOB with exertion. denies: Pleuritic pain - Gastrointestinal Gastrointestinal: reports: Diarrhea, Change in bowel habits, Nausea, Vomiting. denies: Abdominal pain - Genitourinary Genitourinary: denies: Dysuria, Frequency, Urgency, Hematuria - Integumentary Integumentary: denies: Rash - Neurological Neurological: denies: General weakness, Focal weakness - Hematologic/Lymphatic Hematologic/Lymphatic: denies: Anemia, Bleeding tendencies - All Other Systems All Other Systems: reports: Reviewed and negative Prior Level of Functionality: He is independent with his ADLs. Exam - Vital Signs Reviewed Vital Signs: Yes Vital Signs: Vital Signs x48h Temp Pulse Resp BP Pulse Ox 08/18/21 13:03 99 28 H 139/78 H 91 L 08/18/21 12:43 105 H 23 177/76 H 90 L 08/18/21 11:55 110 H 29 H 08/18/21 11:30 113 H 32 H 144/77 H 100 08/18/21 09:42 36.9 C 117 H 35 H 136/90 H 95 - Physical Exam General Appearance: positive: Alert, Mild distress Eyes Bilateral: positive: Normal inspection, Conjunctivae nml ENT: positive: ENT inspection nml, Other (Nasal cannula in place.) Neck: positive: Nml inspection Respiratory: positive: Other (He appears to be in some distress and is tachypneic. Breath sounds have faint for wheezes. Diminished air entry). negative: No respiratory distress Cardiovascular: positive: No murmur, Tachycardia. negative: Irregularly irregular Abdomen: positive: Non-tender, No distention, Other (Ventral hernia noted.). negative: Tenderness Skin: positive: Warm, Dry Extremities: positive: No pedal edema Neurologic/Psychiatric: negative: Disoriented to person, Disoriented to place Sepsis Event Note (H) - Evaluation Current Stage of Sepsis: Sepsis Possible source of Sepsis: positive: Pulmonary - Sepsis Criteria Sepsis Criteria: Recorded Heart Rate greater than 90 bpm, Recorded Respiratory Rate greater than 20, Respiratory: Increasing oxygen requirements, WBC count greater than 12,000 or less than 4000 Conclusion/Plan - Problem List (1) Sepsis Conclusion/Plan: This secondary to community-acquired pneumonia. He does meet criteria given the elevated white blood cell count, tachycardia, hypoxia. He is hypertensive and there is no evidence of endorgan damage. We will treat the pneumonia with ceftriaxone and azithromycin IV. Follow-up blood cultures. Daily CBC although will suspect the steroids given he is receiving steroids. We will hold off on IV fluids given he is hypertensive and appears euvolemic. (2) Acute on chronic respiratory failure with hypoxia Conclusion/Plan: This is secondary to COPD exacerbation and pneumonia. He is normally on 2 L of oxygen with activity but is now requiring 2 L of oxygen at rest to maintain his saturation above 88%. We will manage his pneumonia with ceftriaxone and azithromycin IV. He will be started on Solu-Medrol 60 mg IV 3 times daily and duo nebs every 4 hours with albuterol as needed. Gas in the emergency department did reveal mild hypercapnia but I am hopeful that now he is being managed for exacerbation that we can avoid the need for BiPAP. If he still remains quite tachypneic then we will repeat an ABG. Goal oxygen saturation greater than 88%. (3) COPD exacerbation Conclusion/Plan: This was a cause of his respiratory failure and is likely due to pneumonia. We will manage him with IV antibiotics as mentioned above as well as IV steroids, duo nebs, albuterol. He will need a repeat exercise desaturation test prior to discharge. (4) Community acquired pneumonia Conclusion/Plan: Chest x-ray reveals bilateral infiltrates consistent with pneumonia. He does present with subjective fevers, chills, cough, leukocytosis. We will treat empirically with ceftriaxone and azithromycin. We will use Mucinex and Tessalon as needed. (5) Alcohol abuse Conclusion/Plan: He does admit to daily alcohol use but denies a history of alcohol withdrawal. We will start him on thiamine and monitor for evidence of withdrawal. - Lab Results Lab results reviewed: Yes Fish Bones: 08/18/21 10:05 08/18/21 10:05 - Diagnostic Imaging Results Diagnostic Imaging Results: positive: Final report reviewed - EKG Results EKG Interpreted Independently: Yes EKG Findings: EKG reveals sinus tachycardia without evidence of ischemia. Core Measures - Anticipated LOS I expect patient to be DC'd or transferred within 96 hours.: Yes - Issues Hospital Issues and Management Plan: 66-year-old male with history of COPD presenting dyspnea found to receive exacerbation and community-acquired pneumonia. He will be admitted for IV antibiotics, steroids, nebulizer treatments. - DVT/VTE - Prophylaxis VTE/DVT Device ordered at admit?: Yes VTE/DVT Prophylaxis med ordered at admit?: Yes
[2021-08-18] MEDS ORDERED: cefTRIAXone 2 GM VIAL ONE (13:45)
[2021-08-18] MEDS: IPRATROPIUM/ALBUTEROL 3 ML NEB INH SCH ×3 (14:34→21:24)
[2021-08-18] MEDS: methylPREDNISolone SUCCINATE 40 MG/ML VIAL IVP SCH ×2 (15:42→21:37)
[2021-08-18] MEDS: THIAMINE 100 MG TABLET PO SCH (15:42)
[2021-08-18] MEDS: SODIUM CHLORIDE FLUSH 0.9% 10 ML SYRINGE IVP SCH ×2 (15:42→23:30)
[2021-08-18] MEDS ORDERED: methylPREDNISolone SUCCINATE 40 MG/ML VIAL ONE (15:46)
[2021-08-18] MEDS ORDERED: THIAMINE 100 MG TABLET PO ONE (15:46)
[2021-08-18] MEDS: ACETAMINOPHEN 325 MG TABLET PO PRN ×2 (15:54→23:48)
[2021-08-18] MEDS: BENZONATATE 100 MG CAPSULE PO PRN ×2 (15:54→23:48)
[2021-08-18] MEDS ORDERED: BENZONATATE 100 MG CAPSULE PO ONE (16:03)
[2021-08-18] MEDS ORDERED: ACETAMINOPHEN 325 MG TABLET PO ONE (16:03)
[2021-08-18] MEDS: guaiFENesin 600 MG TABLET PO SCH (20:18)
[2021-08-18] MEDS: chlordiazePOXIDE 25 MG CAPSULE PO SCH ×2 (20:18→23:47)
[2021-08-18] MEDS: SODIUM CHLORIDE FLUSH 0.9% 10 ML SYRINGE IVP PRN (21:37)
[2021-08-18] MEDS: traZODone 50 MG TABLET PO PRN (23:47)
[2021-08-19] MEDS: IPRATROPIUM/ALBUTEROL 3 ML NEB INH SCH ×6 (01:22→21:17)
[2021-08-19] MEDS: methylPREDNISolone SUCCINATE 40 MG/ML VIAL IVP SCH ×3 (05:05→21:28)
[2021-08-19] MEDS: chlordiazePOXIDE 25 MG CAPSULE PO SCH ×3 (05:05→17:39)
[2021-08-19 05:16] LABS: BASOPHILS % (AUTO) 0.2 %; HCT - HEMATOCRIT 40.9 % (42.0-52.0); HGB - HEMOGLOBIN 12.9 g/dL (14.0-18.0); LYMPHOCYTES % (AUTO) 2.1 %; MEAN CORPUSCULAR HEMOGLOBIN 31.5 pg (27.0-31.0); MEAN CORPUSCULAR HGB CONC 31.5 g/dL (32.0-36.0); MEAN PLATELET VOLUME 9.6 fL (7.4-11.4); MONOCYTES % (AUTO) 8.6 %; NEUTROPHILS % (AUTO) 88.8 %; PLT - PLATELET COUNT 305 10^3/uL (130-450); RED BLOOD COUNT 4.09 10^6/uL (4.70-6.10); RED CELL DISTRIBUTION WIDTH 13.8 % (12.0-15.0); WHITE BLOOD COUNT 19.1 x10^3/uL (4.8-10.8)
[2021-08-19 05:25] LABS: CALCIUM 8.9 mg/dL (8.5-10.3); CREATININE 0.8 mg/dL (0.6-1.2); POTASSIUM 4.4 mmol/L (3.5-5.0)
[2021-08-19 05:26] LABS: ABNORMAL LYMPHS % (MANUAL) 0 %
[2021-08-19 05:46] LABS: BAND NEUTROPHILS % (MANUAL) 5 %; DIFFERENTIAL COMMENT MANUAL DIFFERENTIAL; LYMPHOCYTES # (MANUAL) 0.8 10^3/uL (1.5-3.5); LYMPHOCYTES % (MANUAL) 4 %; MONOCYTES # (MANUAL) 1.3 10^3/uL (0.0-1.0); PLATELET ESTIMATE, MANUAL NORMAL (130-450,000) (NORMAL); RBC MORPHOLOGY (MULTIPLE) NORMAL APPEARANCE (NORMAL)
[2021-08-19] MEDS ORDERED: PROCAINAMIDE 100 MG/1 ML 10 ML MDV IV ONE (07:11)
--- NOTE | 2021-08-19 07:37 | PROVIDER PROGRESS NOTE ---
Subjective - Prog Note Date Prog Note Date: 08/19/21 - Subjective Subjective: He feels the same compared to yesterday may be a little better. He still has a productive cough but feels he cannot get as strong of a cough as he did yesterday. Still has wheezing. Denies any chest pain, lightheadedness, dizziness. Current Medications - Current Medications Current Medications: Active Medications Acetaminophen (Acetaminophen 325 Mg Tablet) 650 mg PO Q4HR PRN PRN Reason: Pain 1 to 4, or Fever Last Admin: 08/18/21 23:48 Dose: 650 mg Albuterol (Albuterol Neb 2.5 Mg/3 Ml) 2.5 mg INH RTQ4H PRN PRN Reason: Wheezing Albuterol/Ipratropium (Ipratropium/Albuterol 3 Ml Neb) 3 ml INH Q4HR ELISABET Last Admin: 08/19/21 06:10 Dose: 3 ml Benzonatate (Benzonatate 100 Mg Capsule) 100 mg PO TID PRN PRN Reason: Cough Last Admin: 08/18/21 23:48 Dose: 100 mg Chlordiazepoxide HCl (Chlordiazepoxide 25 Mg Capsule) 25 mg PO Q6HR [facility] Last Admin: 08/19/21 05:05 Dose: 25 mg Enoxaparin Sodium (Enoxaparin 40 Mg/0.4 Ml Syringe) 40 mg SUBQ DAILY [facility] Guaifenesin (Guaifenesin 600 Mg Tablet) 600 mg PO BID [facility] Last Admin: 08/18/21 20:18 Dose: 600 mg Azithromycin 500 mg/ Sodium (Chloride) 250 mls @ 250 mls/hr IV DAILY [facility] Stop: 08/20/21 09:59 Ceftriaxone Sodium 2 gm/ (Sodium Chloride) 100 mls @ 200 mls/hr IV DAILY [facility] Stop: 08/22/21 09:29 Methylprednisolone (Methylprednisolone Succinate 40 Mg/Ml Vial) 60 mg IVP TID [facility] Last Admin: 08/19/21 05:05 Dose: 60 mg Ondansetron HCl (Ondansetron Odt 4 Mg Tablet) 4 mg TL Q6HR PRN PRN Reason: Nausea / Vomiting Procainamide HCl (Procainamide 100 Mg/1 Ml 10 Ml Mdv) 1,000 mg IV ONCE ONE Stop: 08/19/21 07:12 Sodium Chloride (Sodium Chloride Flush 0.9% 10 Ml Syringe) 10 ml IVP PRN PRN PRN Reason: NEEDED PER PROVIDER ORDERS Last Admin: 08/18/21 21:37 Dose: 10 ml Sodium Chloride (Sodium Chloride Flush 0.9% 10 Ml Syringe) 10 ml IVP 0100,0900,1700 [facility] Last Admin: 08/18/21 23:30 Dose: 10 ml Thiamine HCl (Thiamine 100 Mg Tablet) 100 mg PO DAILY [facility] Last Admin: 08/18/21 15:42 Dose: 100 mg Trazodone HCl (Trazodone 50 Mg Tablet) 50 mg PO QPM PRN PRN Reason: Insomnia Last Admin: 08/18/21 23:47 Dose: 50 mg Sertraline [Zoloft] 50 - 100 mg PO DAILY 01/14/21 traZODone [Desyrel] 50 - 100 mg PO QPM PRN 01/14/21 Ascorbic Acid [Vitamin C] 1,000 mg PO DAILY 01/15/21 Cetirizine [ZyrTEC] 10 mg PO DAILY PRN 01/15/21 Cholecalciferol [Vitamin D3] 25 mcg PO DAILY 01/15/21 Furosemide [Lasix] 20 mg PO DAILY 01/15/21 Ipratropium/Albuterol [Duoneb] 3 ml INH QID 01/15/21 Magnesium Oxide [Magnesium] 400 mg PO DAILY 01/15/21 Melatonin 10 mg PO QPM 01/15/21 Vitamin B Complex 1 tab PO DAILY 01/15/21 Vitamin E 400 unit PO DAILY 01/15/21 estradioL [Estrace] 2 mg PO DAILY 01/15/21 predniSONE [Deltasone] 15 mg PO DAILY 01/15/21 Budesonide/Formoterol Fumarate [Symbicort 160-4.5 Mcg Inhaler] 2 puffs INH BID 08/18/21 Tiotropium [place] [Spiriva] 18 mcg INH DAILY 08/18/21 guaiFENesin [Mucinex] 600 mg PO BID 08/18/21 lisinopriL [Zestril] 5 mg PO DAILY 08/18/21 Objective - Vital Signs/Intake & Output Reviewed Vital Signs: Yes Vital Signs: Vital Signs x48h Temp Pulse Pulse Resp BP Pulse Ox 08/19/21 06:10 94 18 08/19/21 05:14 36.3 C L 91 20 135/87 H 94 08/19/21 01:25 92 20 08/18/21 23:43 36.7 C 101 H 22 137/68 H 94 Intake & Output: Intake & Output 08/16/21 08/17/21 08/18/21 08/19/21 23:59 23:59 23:59 23:59 Intake Total 590 Output Total 100 200 Balance 490 -200 - Objective General Appearance: positive: Alert Eyes Bilateral: positive: Normal inspection, Conjunctivae nml ENT: positive: ENT inspection nml, Other (Nasal cannula in place.) Neck: positive: Nml inspection Respiratory: positive: Wheezes, Other (He is tachypneic but not appear to be in distress) Cardiovascular: positive: Irregularly irregular, Tachycardia. negative: Systolic murmur Skin: positive: Warm, Dry Extremities: positive: No pedal edema - Lab Results Fish Bones: 08/19/21 05:09 08/19/21 05:09 Other Labs: Lab Results x24hrs 08/19/21 08/19/21 08/18/21 Range/Units 05:09 05:09 11:44 WBC 19.1 H (4.8-10.8) x10^3/uL RBC 4.09 L (4.70-6.10) 10^6/uL Hgb 12.9 L (14.0-18.0) g/dL Hct 40.9 L (42.0-52.0) % MCV 100.0 H (80.0-94.0) fL MCH 31.5 H (27.0-31.0) pg MCHC 31.5 L (32.0-36.0) g/dL RDW 13.8 (12.0-15.0) % Plt Count 305 (130-450) 10^3/uL MPV 9.6 (7.4-11.4) fL Neut # (Auto) Not Reportable (1.5-6.6) 10^3/uL Lymph # (Auto) Not Reportable (1.5-3.5) 10^3/uL [place] # (Auto) Not Reportable (0.0-1.0) 10^3/uL Eos # (Auto) Not Reportable (0.0-0.7) 10^3/uL Baso # (Auto) Not Reportable (0.0-0.1) 10^3/uL Absolute Nucleated RBC Not Reportable x10^3/uL Total Counted 100 Band Neuts % (Manual) 5 (0 - 10) % Abnorm Lymph % (Manual) 0 % Nucleated RBC % Not Reportable /100WBC Neutrophils # (Manual) 17.0 H (1.5-6.6) 10^3/uL Lymphocytes # (Manual) 0.8 L (1.5-3.5) 10^3/uL Monocytes # (Manual) 1.3 H (0.0-1.0) 10^3/uL Eosinophils # (Manual) 0.0 (0-0.7) 10^3/uL Basophils # (Manual) 0.0 (0-0.1) 10^3/uL Differential Comment MANUAL DIFFERENTIAL Manual Slide Review Platelet Estimate NORMAL (130-450,000) (NORMAL) RBC Morph Micro Appear NORMAL APPEARANCE (NORMAL) Bld Gas Analysis Time Sample Site ABG pH (7.35-7.45) ABG pCO2 (34-45) mmHg ABG pO2 (80-100) mmHg ABG HCO3 (22.0-26.0) mmol/L ABG Total CO2 (21.0-29.0) MMOL/L ABG O2 Saturation (94-98) % ABG Base Excess (-2.0-3.0) mmol/L Ganga Test O2 Delivery Device O2 Liters/Min LPM Sodium 138 (135-145) mmol/L Potassium 4.4 (3.5-5.0) mmol/L Chloride 100 L (101-111) mmol/L Carbon Dioxide 30 (21-32) mmol/L Anion Gap 8.0 (6-13) BUN 24 H (6-20) mg/dL Creatinine 0.8 (0.6-1.2) mg/dL Estimated GFR (MDRD) 96 (>89) Glucose 156 H (70-100) mg/dL Lactic Acid 1.4 (0.5-2.2) mmol/L Calcium 8.9 (8.5-10.3) mg/dL Total Bilirubin (0.2-1.0) mg/dL AST (10-42) IU/L ALT (10-60) IU/L Alkaline Phosphatase (42-121) IU/L Troponin I High Sens (2.3-19.7) ng/L B-Natriuretic Peptide (5-100) pg/mL Total Protein (6.7-8.2) g/dL Albumin (3.2-5.5) g/dL Globulin (2.1-4.2) g/dL Albumin/Globulin Ratio (1.0-2.2) Lipase (22-51) U/L Nasal Adenovirus (PCR) Nasal B. parapertussis DNA (PCR) Nasal Coronavir 229E PCR Nasal Coronavir HKU1 PCR Nasal Coronavir NL63 PCR Nasal Coronavir OC43 PCR Nasal Enterovir/Rhinovir PCR Nasal Influenza B PCR Nasal Influenza A PCR Nasal Parainfluen 1 PCR Nasal Parainfluen 2 PCR Nasal Parainfluen 3 PCR Nasal Parainfluen 4 PCR Nasal RSV (PCR) Nasal B.pertussis DNA PCR Nasal C.pneumoniae (PCR) Lenin Human Metapneumo PCR Nasal M.pneumoniae (PCR) Nasal SARS-CoV-2 (PCR) 08/18/21 08/18/21 08/18/21 Range/Units 11:42 11:30 10:05 WBC (4.8-10.8) x10^3/uL RBC (4.70-6.10) 10^6/uL Hgb (14.0-18.0) g/dL Hct (42.0-52.0) % MCV (80.0-94.0) fL MCH (27.0-31.0) pg MCHC (32.0-36.0) g/dL RDW (12.0-15.0) % Plt Count (130-450) 10^3/uL MPV (7.4-11.4) fL Neut # (Auto) (1.5-6.6) 10^3/uL Lymph # (Auto) (1.5-3.5) 10^3/uL [place] # (Auto) (0.0-1.0) 10^3/uL Eos # (Auto) (0.0-0.7) 10^3/uL Baso # (Auto) (0.0-0.1) 10^3/uL Absolute Nucleated RBC x10^3/uL Total Counted Band Neuts % (Manual) (0 - 10) % Abnorm Lymph % (Manual) % Nucleated RBC % /100WBC Neutrophils # (Manual) (1.5-6.6) 10^3/uL Lymphocytes # (Manual) (1.5-3.5) 10^3/uL Monocytes # (Manual) (0.0-1.0) 10^3/uL Eosinophils # (Manual) (0-0.7) 10^3/uL Basophils # (Manual) (0-0.1) 10^3/uL Differential Comment Manual Slide Review Platelet Estimate (NORMAL) RBC Morph Micro Appear (NORMAL) Bld Gas Analysis Time 1140 Sample Site RIGHT RADIAL ABG pH 7.34 L (7.35-7.45) ABG pCO2 51 H (34-45) mmHg ABG pO2 56 L (80-100) mmHg ABG HCO3 26.6 H (22.0-26.0) mmol/L ABG Total CO2 28.2 (21.0-29.0) MMOL/L ABG O2 Saturation 88 L (94-98) % ABG Base Excess 0.0 (-2.0-3.0) mmol/L Ganga Test POSITIVE O2 Delivery Device NASAL CANNULA O2 Liters/Min 3.00 LPM Sodium (135-145) mmol/L Potassium (3.5-5.0) mmol/L Chloride (101-111) mmol/L Carbon Dioxide (21-32) mmol/L Anion Gap (6-13) BUN (6-20) mg/dL Creatinine (0.6-1.2) mg/dL Estimated GFR (MDRD) (>89) Glucose (70-100) mg/dL Lactic Acid (0.5-2.2) mmol/L Calcium (8.5-10.3) mg/dL Total Bilirubin (0.2-1.0) mg/dL AST (10-42) IU/L ALT (10-60) IU/L Alkaline Phosphatase (42-121) IU/L Troponin I High Sens (2.3-19.7) ng/L B-Natriuretic Peptide 118 H (5-100) pg/mL Total Protein (6.7-8.2) g/dL Albumin (3.2-5.5) g/dL Globulin (2.1-4.2) g/dL Albumin/Globulin Ratio (1.0-2.2) Lipase (22-51) U/L Nasal Adenovirus (PCR) NOT DETECTED Nasal B. parapertussis DNA (PCR) NOT DETECTED Nasal Coronavir 229E PCR NOT DETECTED Nasal Coronavir HKU1 PCR NOT DETECTED Nasal Coronavir NL63 PCR NOT DETECTED Nasal Coronavir OC43 PCR NOT DETECTED Nasal Enterovir/Rhinovir PCR NOT DETECTED Nasal Influenza B PCR NOT DETECTED Nasal Influenza A PCR NOT DETECTED Nasal Parainfluen 1 PCR NOT DETECTED Nasal Parainfluen 2 PCR NOT DETECTED Nasal Parainfluen 3 PCR NOT DETECTED Nasal Parainfluen 4 PCR NOT DETECTED Nasal RSV (PCR) NOT DETECTED Nasal B.pertussis DNA PCR NOT DETECTED Nasal C.pneumoniae (PCR) NOT DETECTED [place] Human Metapneumo PCR NOT DETECTED Nasal M.pneumoniae (PCR) NOT DETECTED Nasal SARS-CoV-2 (PCR) NOT DETECTED 08/18/21 08/18/21 08/18/21 Range/Units 10:05 10:05 10:05 WBC 22.9 H (4.8-10.8) x10^3/uL RBC 4.36 L (4.70-6.10) 10^6/uL Hgb 14.0 (14.0-18.0) g/dL Hct 43.0 (42.0-52.0) % MCV 98.6 H (80.0-94.0) fL MCH 32.1 H (27.0-31.0) pg MCHC 32.6 (32.0-36.0) g/dL RDW 13.7 (12.0-15.0) % Plt Count 307 (130-450) 10^3/uL MPV 9.5 (7.4-11.4) fL Neut # (Auto) 18.9 H (1.5-6.6) 10^3/uL Lymph # (Auto) 0.4 L (1.5-3.5) 10^3/uL [place] # (Auto) 3.4 H (0.0-1.0) 10^3/uL Eos # (Auto) 0.0 (0.0-0.7) 10^3/uL Baso # (Auto) 0.1 (0.0-0.1) 10^3/uL Absolute Nucleated RBC 0.00 x10^3/uL Total Counted Band Neuts % (Manual) (0 - 10) % Abnorm Lymph % (Manual) % Nucleated RBC % 0.0 /100WBC Neutrophils # (Manual) (1.5-6.6) 10^3/uL Lymphocytes # (Manual) (1.5-3.5) 10^3/uL Monocytes # (Manual) (0.0-1.0) 10^3/uL Eosinophils # (Manual) (0-0.7) 10^3/uL Basophils # (Manual) (0-0.1) 10^3/uL Differential Comment Manual Slide Review Indicated Platelet Estimate (NORMAL) RBC Morph Micro Appear 2+ ANISOCYTOSIS (NORMAL) Bld Gas Analysis Time Sample Site ABG pH (7.35-7.45) ABG pCO2 (34-45) mmHg ABG pO2 (80-100) mmHg ABG HCO3 (22.0-26.0) mmol/L ABG Total CO2 (21.0-29.0) MMOL/L ABG O2 Saturation (94-98) % ABG Base Excess (-2.0-3.0) mmol/L Ganga Test O2 Delivery Device O2 Liters/Min LPM Sodium 138 (135-145) mmol/L Potassium 4.1 (3.5-5.0) mmol/L Chloride 99 L (101-111) mmol/L Carbon Dioxide 28 (21-32) mmol/L Anion Gap 11.0 (6-13) BUN 22 H (6-20) mg/dL Creatinine 0.9 (0.6-1.2) mg/dL Estimated GFR (MDRD) 84 L (>89) Glucose 138 H (70-100) mg/dL Lactic Acid (0.5-2.2) mmol/L Calcium 9.1 (8.5-10.3) mg/dL Total Bilirubin 1.2 H (0.2-1.0) mg/dL AST 16 (10-42) IU/L ALT 18 (10-60) IU/L Alkaline Phosphatase 57 (42-121) IU/L Troponin I High Sens 8.2 (2.3-19.7) ng/L B-Natriuretic Peptide (5-100) pg/mL Total Protein 7.4 (6.7-8.2) g/dL Albumin 3.8 (3.2-5.5) g/dL Globulin 3.6 (2.1-4.2) g/dL Albumin/Globulin Ratio 1.1 (1.0-2.2) Lipase 23 (22-51) U/L Nasal Adenovirus (PCR) Nasal B. parapertussis DNA (PCR) Nasal Coronavir 229E PCR Nasal Coronavir HKU1 PCR Nasal Coronavir NL63 PCR Nasal Coronavir OC43 PCR Nasal Enterovir/Rhinovir PCR Nasal Influenza B PCR Nasal Influenza A PCR Nasal Parainfluen 1 PCR Nasal Parainfluen 2 PCR Nasal Parainfluen 3 PCR Nasal Parainfluen 4 PCR Nasal RSV (PCR) Nasal B.pertussis DNA PCR Nasal C.pneumoniae (PCR) [place] Human Metapneumo PCR Nasal M.pneumoniae (PCR) Nasal SARS-CoV-2 (PCR) ABX Reporting Has patient been on IV antibiotics over the past 48 hours?: Yes Sepsis Event Note (H) - Evaluation Current Stage of Sepsis: Sepsis Possible source of Sepsis: positive: Pulmonary - Sepsis Criteria Sepsis Criteria: Recorded Heart Rate greater than 90 bpm, Recorded Respiratory Rate greater than 20, Respiratory: Increasing oxygen requirements, WBC count gr eater than 12,000 or less than 4000 Assessment/Plan - Problem List (1) Sepsis Impression: He still meets sepsis criteria given elevated white count, tachycardia but is improving. White count is trending down despite receiving steroids yesterday. Today will be day 2 of ceftriaxone and azithromycin. He will need at least 5 days of antibiotics for the community-acquired pneumonia. Blood cultures are pending we will follow these up to ensure there is no evidence of bacteremia. Continue with daily CBC. (2) Acute on chronic respiratory failure with hypoxia Impression: He is on 2 L of oxygen at baseline with activity and is now requiring 2 L at rest. This is secondary to the COPD exacerbation and community-acquired pneumonia. We will continue with the IV antibiotics, Solu-Medrol IV, Frankie. He will need another exercise desaturation test prior to discharge. Goal s aturation greater than 88% given the COPD. (3) COPD exacerbation Impression: This is likely secondary to the pneumonia and is contributing to his respiratory failure. He is showing slow improvement. He is still tachypneic and has wheezing but has improved air movement today. We will continue the antibiotics mentioned above. Continue with Solu-Medrol IV 3 times daily. Continue with nebulizers every 4 hours and albuterol as needed. (4) Community acquired pneumonia Impression: This was evident on the x-ray and is likely the cause of his CP exacerbation. Chest x-ray reviewed bilateral infiltrates and he had an elevated white blood cell count with a productive cough. COVID PCR is negative. He is on IV ceft riaxone and azithromycin and today is day 2 of antibiotics. He will need a least 5 days of treatment. (5) Atrial fibrillation Impression: He went into atrial fibrillation this morning with rapid ventricular response. His rates were in the 160s. This was confirmed by EKG. We trialed procainamide but he did not convert. We then came diltiazem IV push and he shortly converted back to sinus rhythm after that. We have sent start him on oral Cardizem for rate control. We have also started him on Eliquis for anticoagulation. His TSH was decreased but T4 is within normal limits. I have ordered an echocardiogram but this will not be available until next week. (6) Alcohol abuse Impression: He does have a history of alcohol abuse and his CIWA score was 9 yesterday. We have started him on Librium which we will look to titrate down over the next couple days.
[2021-08-19] MEDS ORDERED: CETIRIZINE 10 MG TABLET PO PRN (07:47)
[2021-08-19] MEDS ORDERED: PROCAINAMIDE IV ONE (08:30)
[2021-08-19] MEDS ORDERED: SODIUM CHLORIDE 0.9% IV ONE (08:30)
[2021-08-19] MEDS ORDERED: SODIUM CHLORIDE 0.9% MINIBAG 100 ML IV ONE (08:47)
[2021-08-19] MEDS: SODIUM CHLORIDE FLUSH 0.9% 10 ML SYRINGE IVP SCH ×2 (08:47→17:39)
[2021-08-19] MEDS: guaiFENesin 600 MG TABLET PO SCH ×2 (08:57→21:28)
[2021-08-19] MEDS: FUROSEMIDE 20 MG TABLET PO SCH (08:57)
[2021-08-19] MEDS: THIAMINE 100 MG TABLET PO SCH (08:57)
[2021-08-19] MEDS: CHOLECALCIFEROL 25 MCG TABLET PO SCH (08:57)
[2021-08-19] MEDS: lisinopriL 5 MG TABLET PO SCH (08:58)
[2021-08-19] MEDS ORDERED: ENOXAPARIN 40 MG/0.4 ML SYRINGE SUBQ SCH (09:00)
[2021-08-19] MEDS ORDERED: cefTRIAXone 2 GM in SODIUM CHLORIDE 0.9% MINIBAG 100 ML IV SCH (09:00)
[2021-08-19] MEDS: BENZONATATE 100 MG CAPSULE PO PRN ×2 (09:09→17:38)
[2021-08-19] MEDS: cefTRIAXone 2 GM in SODIUM CHLORIDE 0.9% MINIBAG 100 ML IV SCH (09:59)
[2021-08-19] MEDS ORDERED: diltiaZEM INJ 5 MG/ML VIAL IVP ONE ×2 (10:33→13:58)
[2021-08-19] MEDS: AZITHROMYCIN INJ 500 MG in SODIUM CHLORIDE 0.9% 250 ML IV SCH (10:56)
[2021-08-19] MEDS: APIXABAN 5 MG TABLET PO SCH ×2 (11:10→21:28)
--- NOTE | 2021-08-19 11:11 | PHARMACY PROGRESS NOTE ---
- Best Possible Medication History Admit Date and Time: 08/18/21 1310 Processed by: Pharmacy Medication History completed: Yes Patient Interview: Completed Secondary Source(s): Physician records, Pharmacy records, Insurance records As the person ultimately responsible for medication therapy, providers are able to order a medication from an existing home medication list in [facility] via the "Reconcile Routine" prior to Confirmation of that medication by medical support specialist. Such practice is discouraged except when the physician, in their clinical judgment, deems that a medical need exists for a medication without regard to previous use.
[2021-08-19] MEDS: SODIUM CHLORIDE FLUSH 0.9% 10 ML SYRINGE IVP PRN (11:17)
[2021-08-19] MEDS ORDERED: SODIUM CHLORIDE 0.9% 1,000 ML IV ONE (12:08)
[2021-08-19] MEDS: SODIUM CHLORIDE 0.9% 1,000 ML IV SCH (14:00)
[2021-08-19] MEDS: guaiFENesin 100 MG/5 ML UDC PO PRN (14:31)
[2021-08-19] MEDS: ALBUTEROL NEB 2.5 MG/3 ML INH PRN (18:02)
[2021-08-20] MEDS: guaiFENesin 100 MG/5 ML UDC PO PRN ×3 (00:04→23:28)
[2021-08-20] MEDS: SODIUM CHLORIDE 0.9% 1,000 ML IV SCH ×3 (00:07→22:01)
[2021-08-20] MEDS: chlordiazePOXIDE 25 MG CAPSULE PO SCH ×2 (00:26→05:21)
[2021-08-20] MEDS: traZODone 50 MG TABLET PO PRN (00:27)
[2021-08-20] MEDS: SODIUM CHLORIDE FLUSH 0.9% 10 ML SYRINGE IVP SCH ×3 (01:28→18:04)
[2021-08-20] MEDS: IPRATROPIUM/ALBUTEROL 3 ML NEB INH SCH ×6 (01:54→22:48)
[2021-08-20] MEDS: methylPREDNISolone SUCCINATE 40 MG/ML VIAL IVP SCH ×3 (05:21→22:01)
[2021-08-20] MEDS: BENZONATATE 100 MG CAPSULE PO PRN ×2 (05:21→20:53)
[2021-08-20 05:26] LABS: BASOPHILS % (AUTO) 0.1 %; HCT - HEMATOCRIT 40.2 % (42.0-52.0); HGB - HEMOGLOBIN 12.4 g/dL (14.0-18.0); LYMPHOCYTES % (AUTO) 2.6 %; MEAN CORPUSCULAR HEMOGLOBIN 31.8 pg (27.0-31.0); MEAN CORPUSCULAR HGB CONC 30.8 g/dL (32.0-36.0); MEAN CORPUSCULAR VOLUME 103.1 fL (80.0-94.0); MEAN PLATELET VOLUME 9.6 fL (7.4-11.4); NEUTROPHILS % (AUTO) 88.6 %; PLT - PLATELET COUNT 328 10^3/uL (130-450); RED CELL DISTRIBUTION WIDTH 13.9 % (12.0-15.0); WHITE BLOOD COUNT 20.4 x10^3/uL (4.8-10.8)
[2021-08-20 05:34] LABS: ABNORMAL LYMPHS % (MANUAL) 0 %; CALCIUM 8.3 mg/dL (8.5-10.3); CREATININE 0.9 mg/dL (0.6-1.2); POTASSIUM 4.5 mmol/L (3.5-5.0)
[2021-08-20 05:58] LABS: BAND NEUTROPHILS % (MANUAL) 12 %; DIFFERENTIAL COMMENT MANUAL DIFFERENTIAL; LYMPHOCYTES # (MANUAL) 0.8 10^3/uL (1.5-3.5); LYMPHOCYTES % (MANUAL) 4 %; NEUTROPHILS # (MANUAL) 18.6 10^3/uL (1.5-6.6); PLATELET ESTIMATE, MANUAL NORMAL (130-450,000) (NORMAL); RBC MORPHOLOGY (MULTIPLE) NORMAL APPEARANCE (NORMAL)
[2021-08-20] MEDS: THIAMINE 100 MG TABLET PO SCH (08:14)
[2021-08-20] MEDS: guaiFENesin 600 MG TABLET PO SCH ×2 (08:14→20:53)
[2021-08-20] MEDS: APIXABAN 5 MG TABLET PO SCH ×2 (08:14→20:53)
[2021-08-20] MEDS: CHOLECALCIFEROL 25 MCG TABLET PO SCH (08:14)
[2021-08-20] MEDS: FUROSEMIDE 20 MG TABLET PO SCH (08:14)
[2021-08-20] MEDS: lisinopriL 5 MG TABLET PO SCH (08:14)
[2021-08-20] MEDS: AZITHROMYCIN INJ 500 MG in SODIUM CHLORIDE 0.9% 250 ML IV SCH (08:18)
--- NOTE | 2021-08-20 08:24 | PROVIDER PROGRESS NOTE ---
Subjective - Prog Note Date Prog Note Date: 08/20/21 - Subjective Subjective: He feels okay may be a little better today compared to yesterday. Still has wheezing. feels like his cough is more productive today. Denies any chest pain. Current Medications - Current Medications Current Medications: Active Medications Acetaminophen (Acetaminophen 325 Mg Tablet) 650 mg PO Q4HR PRN PRN Reason: Pain 1 to 4, or Fever Last Admin: 08/18/21 23:48 Dose: 650 mg Albuterol (Albuterol Neb 2.5 Mg/3 Ml) 2.5 mg INH RTQ4H PRN PRN Reason: Wheezing Last Admin: 08/19/21 18:02 Dose: 2.5 mg Albuterol/Ipratropium (Ipratropium/Albuterol 3 Ml Neb) 3 ml INH Q4HR [facility] Last Admin: 08/20/21 07:25 Dose: 3 ml Apixaban (Apixaban 5 Mg Tablet) 5 mg PO BID [facility] Last Admin: 08/20/21 08:14 Dose: 5 mg Benzonatate (Benzonatate 100 Mg Capsule) 100 mg PO TID PRN PRN Reason: Cough Last Admin: 08/20/21 05:21 Dose: 100 mg Cetirizine HCl (Cetirizine 10 Mg Tablet) 10 mg PO DAILY PRN PRN Reason: Allergy Symptoms Last Admin: 08/19/21 09:09 Dose: 10 mg Chlordiazepoxide HCl (Chlordiazepoxide 25 Mg Capsule) 25 mg PO Q6HR [facility] Last Admin: 08/20/21 05:21 Dose: 25 mg Cholecalciferol (Cholecalciferol 25 Mcg Tablet) 25 mcg PO DAILY [facility] Last Admin: 08/20/21 08:14 Dose: 25 mcg Furosemide (Furosemide 20 Mg Tablet) 20 mg PO DAILY [facility] Last Admin: 08/20/21 08:14 Dose: 20 mg Guaifenesin (Guaifenesin 600 Mg Tablet) 600 mg PO BID [facility] Last Admin: 08/19/21 21:28 Dose: 600 mg Guaifenesin (Guaifenesin 100 Mg/5 Ml Udc) 100 mg PO Q6HR PRN PRN Reason: Cough Last Admin: 08/20/21 00:04 Dose: 100 mg Azithromycin 500 mg/ Sodium (Chloride) 250 mls @ 250 mls/hr IV DAILY [facility] Stop: 08/20/21 09:59 Last Admin: 08/20/21 08:18 Dose: 250 mls/hr Ceftriaxone Sodium 2 gm/ (Sodium Chloride) 100 mls @ 200 mls/hr IV DAILY [facility] Stop: 08/22/21 09:29 Last Infusion: 08/19/21 10:45 Dose: Infused Sodium Chloride (Normal Saline 0.9%) 1,000 mls @ 100 mls/hr IV .Q10H [facility] Last Infusion: 08/20/21 08:18 Dose: 0 mls/hr Lisinopril (Lisinopril 5 Mg Tablet) 5 mg PO DAILY [facility] Last Admin: 08/20/21 08:14 Dose: 5 mg Methylprednisolone (Methylprednisolone Succinate 40 Mg/Ml Vial) 60 mg IVP TID [facility] Last Admin: 08/20/21 05:21 Dose: 60 mg Ondansetron HCl (Ondansetron Odt 4 Mg Tablet) 4 mg TL Q6HR PRN PRN Reason: Nausea / Vomiting Sodium Chloride (Sodium Chloride Flush 0.9% 10 Ml Syringe) 10 ml IVP PRN PRN PRN Reason: NEEDED PER PROVIDER ORDERS Last Admin: 08/19/21 11:17 Dose: 10 ml Sodium Chloride (Sodium Chloride Flush 0.9% 10 Ml Syringe) 10 ml IVP 0100,0900,1700 [facility] Last Admin: 08/20/21 01:28 Dose: Not Given Thiamine HCl (Thiamine 100 Mg Tablet) 100 mg PO DAILY [facility] Last Admin: 08/20/21 08:14 Dose: 100 mg Trazodone HCl (Trazodone 50 Mg Tablet) 50 mg PO QPM PRN PRN Reason: Insomnia Last Admin: 08/20/21 00:27 Dose: 50 mg Sertraline [Zoloft] 50 mg PO DAILY 01/14/21 traZODone [Desyrel] 50 mg PO QPM PRN 01/14/21 Ascorbic Acid [Vitamin C] 1,000 mg PO DAILY 01/15/21 Cetirizine [ZyrTEC] 10 mg PO DAILY 01/15/21 Cholecalciferol [Vitamin D3] 25 mcg PO DAILY 01/15/21 Furosemide [Lasix] 20 mg PO DAILY 01/15/21 Magnesium Oxide [Magnesium] 400 mg PO DAILY 01/15/21 Melatonin 10 mg PO QPM 01/15/21 Vitamin B Complex 1 tab PO DAILY 01/15/21 Vitamin E 400 unit PO DAILY 01/15/21 estradioL [Estrace] 2 mg PO DAILY 01/15/21 predniSONE [Deltasone] 15 mg PO DAILY 01/15/21 Budesonide/Formoterol Fumarate [Symbicort 160-4.5 Mcg Inhaler] 2 puffs INH BID 08/18/21 Tiotropium [place] [Spiriva] 18 mcg INH DAILY 08/18/21 guaiFENesin [Mucinex] 600 mg PO BID 08/18/21 lisinopriL [Zestril] 5 mg PO DAILY 08/18/21 Potassium Chloride [Klor-Con 10] 10 meq PO DAILY 08/19/21 Objective - Vital Signs/Intake & Output Reviewed Vital Signs: Yes Vital Signs: Vital Signs x48h Temp Pulse Pulse Resp BP Pulse Ox 08/20/21 08:09 36.3 C L 96 18 132/65 H 90 L 08/20/21 07:26 89 20 08/20/21 05:17 36.5 C 92 20 127/72 95 08/20/21 01:55 85 16 Intake & Output: Intake & Output 08/17/21 08/18/21 08/19/21 08/20/21 23:59 23:59 23:59 23:59 Intake Total 590 2880 2168.333 Output Total 100 200 Balance 490 2680 2168.333 - Objective General Appearance: positive: Alert, Mild distress Eyes Bilateral: positive: Conjunctivae nml ENT: positive: ENT inspection nml, Other (Nasal canula in place.) Neck: positive: Nml inspection Respiratory: positive: Wheezes (Expiratory wheezes noted.), Rhonchi (Present bilaterally), Other (He does not appear to be in distress. He still is a little tachypneic but this appears improved.) Cardiovascular: positive: Regular rate & rhythm. negative: Irregularly irregular, Tachycardia Abdomen: positive: Other (Ventral hernia noted). negative: Tenderness Skin: positive: Warm, Dry Extremities: positive: No pedal edema - Lab Results Fish Bones: 08/20/21 05:11 08/20/21 05:11 Other Labs: Lab Results x24hrs 08/20/21 08/20/21 08/19/21 Range/Units 05:11 05:11 07:12 WBC 20.4 H (4.8-10.8) x10^3/uL RBC 3.90 L (4.70-6.10) 10^6/uL Hgb 12.4 L (14.0-18.0) g/dL Hct 40.2 L (42.0-52.0) % MCV 103.1 H (80.0-94.0) fL MCH 31.8 H (27.0-31.0) pg MCHC 30.8 L (32.0-36.0) g/dL RDW 13.9 (12.0-15.0) % Plt Count 328 (130-450) 10^3/uL MPV 9.6 (7.4-11.4) fL Neut # (Auto) Not Reportable Lymph # (Auto) Not Reportable [place] # (Auto) Not Reportable Eos # (Auto) Not Reportable Baso # (Auto) Not Reportable Absolute Nucleated RBC Not Reportable Total Counted 100 Band Neuts % (Manual) 12 H (0 - 10) % Abnorm Lymph % (Manual) 0 % Nucleated RBC % Not Reportable Neutrophils # (Manual) 18.6 H (1.5-6.6) 10^3/uL Lymphocytes # (Manual) 0.8 L (1.5-3.5) 10^3/uL Monocytes # (Manual) 1.0 (0.0-1.0) 10^3/uL Eosinophils # (Manual) 0.0 (0-0.7) 10^3/uL Basophils # (Manual) 0.0 (0-0.1) 10^3/uL Differential Comment MANUAL DIFFERENTIAL Platelet Estimate NORMAL (130-450,000) (NORMAL) RBC Morph Micro Appear NORMAL APPEARANCE (NORMAL) Sodium 135 (135-145) mmol/L Potassium 4.5 (3.5-5.0) mmol/L Chloride 101 (101-111) mmol/L Carbon Dioxide 29 (21-32) mmol/L Anion Gap 5.0 L (6-13) BUN 34 H (6-20) mg/dL Creatinine 0.9 (0.6-1.2) mg/dL Estimated GFR (MDRD) 84 L (>89) Glucose 174 H (70-100) mg/dL Calcium 8.3 L (8.5-10.3) mg/dL Free T4 0.79 (0.58-1.64) ng/dL ABX Reporting Has patient been on IV antibiotics over the past 48 hours?: Yes Sepsis Event Note (H) - Evaluation Current Stage of Sepsis: Sepsis Possible source of Sepsis: positive: Pulmonary - Sepsis Criteria Sepsis Criteria: Recorded Heart Rate greater than 90 bpm, Recorded Respiratory Rate greater than 20, Respiratory: Increasing oxygen requirements, WBC count gr eater than 12,000 or less than 4000 Assessment/Plan - Problem List (1) Sepsis Impression: This is secondary to the community-acquired pneumonia. His white blood cell count is increased today and he has bands. Suspected infection is the pneumonia which we are treating him for with ceftriaxone and azithromycin. Today is day 3. He is afebrile and overall appears improved except for the increasing white count. Blood cultures have been negative. Continue with the antibiotics as mentioned above. Continue with daily CBC. (2) Acute on chronic respiratory failure with hypoxia Impression: He is still requiring 2 L of oxygen to maintain his saturation above 88%. This is secondary to community-acquired pneumonia and COPD exacerbation. We are continuing antibiotics, Solu-Medrol IV, DuoNebs. Although he still hypoxic, he does appear a little more improved and comfortable today. We will continue current management. He will need an exercise desaturation test prior to d ischarge. (3) COPD exacerbation Impression: This is ongoing and contributing to the respiratory failure. He does appear little improved today. He is still quite dyspneic and has significant wheezing on exam. We are continuing with the antibiotics, Solu-Medrol, duo nebs [id number] and albuterol as needed. He is usually slow to improve and I suspect he will need a few days in the hospital but he has shown evidence of gradual improvement. (4) Community acquired pneumonia Impression: This is contributing to respiratory failure and likely cause of the exacerbation of his COPD. Chest x-ray revealed bilateral infiltrates. He has been afebrile but white blood cell count is increased today with bands present. Today is day 3 of ceftriaxone and azithromycin which she will continue. If he shows evidence of a continued increasing white count or spikes a fever then we will broaden antibiotics. (5) Atrial fibrillation Impression: He converted back to sinus rhythm yesterday afternoon. We will keep him on oral diltiazem and Eliquis for anticoagulation. An echocardiogram has been ordered. Qualifiers: Atrial fibrillation type: paroxysmal Qualified Code(s): I48.0 - Paroxysmal atrial fibrillation (6) Alcohol abuse Impression: There is initial concern for mild alcohol withdrawal but he has since been quite stable. We did start him on Librium which she will continue and decrease this to twice daily today and then once in the evening tomorrow for discontinuing it. We will continue thiamine.
[2021-08-20] MEDS: cefTRIAXone 2 GM in SODIUM CHLORIDE 0.9% MINIBAG 100 ML IV SCH (09:31)
[2021-08-20] MEDS: SODIUM CHLORIDE FLUSH 0.9% 10 ML SYRINGE IVP PRN (13:41)
[2021-08-20] MEDS ORDERED: chlordiazePOXIDE 25 MG CAPSULE PO SCH (18:00)
[2021-08-20] MEDS: ACETAMINOPHEN 325 MG TABLET PO PRN (20:53)
[2021-08-21] MEDS: SODIUM CHLORIDE FLUSH 0.9% 10 ML SYRINGE IVP SCH ×3 (00:08→17:57)
[2021-08-21] MEDS: IPRATROPIUM/ALBUTEROL 3 ML NEB INH SCH ×6 (01:13→19:36)
[2021-08-21 05:19] LABS: BASOPHILS % (AUTO) 0.2 %; EOSINOPHILS % (AUTO) 0.2 %; HCT - HEMATOCRIT 41.8 % (42.0-52.0); HGB - HEMOGLOBIN 12.6 g/dL (14.0-18.0); LYMPHOCYTES % (AUTO) 1.9 %; MEAN CORPUSCULAR HEMOGLOBIN 31.6 pg (27.0-31.0); MEAN CORPUSCULAR HGB CONC 30.1 g/dL (32.0-36.0); MEAN CORPUSCULAR VOLUME 104.8 fL (80.0-94.0); MEAN PLATELET VOLUME 9.8 fL (7.4-11.4); MONOCYTES % (AUTO) 7.7 %; NEUTROPHILS % (AUTO) 87.9 %; PLT - PLATELET COUNT 357 10^3/uL (130-450); RED BLOOD COUNT 3.99 10^6/uL (4.70-6.10); RED CELL DISTRIBUTION WIDTH 13.8 % (12.0-15.0); WHITE BLOOD COUNT 24.2 x10^3/uL (4.8-10.8)
[2021-08-21 05:25] LABS: ABNORMAL LYMPHS % (MANUAL) 0 %
[2021-08-21 05:29] LABS: CALCIUM 8.6 mg/dL (8.5-10.3); CREATININE 0.9 mg/dL (0.6-1.2); POTASSIUM 4.7 mmol/L (3.5-5.0)
[2021-08-21 06:10] LABS: BAND NEUTROPHILS % (MANUAL) 14 %; DIFFERENTIAL COMMENT MANUAL DIFFERENTIAL; LYMPHOCYTES # (MANUAL) 1.7 10^3/uL (1.5-3.5); LYMPHOCYTES % (MANUAL) 7 %; MONOCYTES # (MANUAL) 1.7 10^3/uL (0.0-1.0); NEUTROPHILS # (MANUAL) 20.8 10^3/uL (1.5-6.6); PLATELET ESTIMATE, MANUAL NORMAL (130-450,000) (NORMAL); RBC MORPHOLOGY (MULTIPLE) NORMAL APPEARANCE (NORMAL)
[2021-08-21] MEDS: chlordiazePOXIDE 25 MG CAPSULE PO SCH ×3 (07:30→21:47)
--- NOTE | 2021-08-21 07:31 | PROVIDER PROGRESS NOTE ---
Subjective - Prog Note Date Prog Note Date: 08/21/21 - Subjective Subjective: Per nursing, he was confused and agitated overnight and pulled out his IV. The patient knows he is in the hospital but keeps on repeating I do not want to . When asked if he feels short of breath, he does not say yes or no. He denies any pain. Current Medications - Current Medications Current Medications: Active Medications Acetaminophen (Acetaminophen 325 Mg Tablet) 650 mg PO Q4HR PRN PRN Reason: Pain 1 to 4, or Fever Last Admin: 08/20/21 20:53 Dose: 650 mg Albuterol (Albuterol Neb 2.5 Mg/3 Ml) 2.5 mg INH RTQ4H PRN PRN Reason: Wheezing Last Admin: 08/19/21 18:02 Dose: 2.5 mg Albuterol/Ipratropium (Ipratropium/Albuterol 3 Ml Neb) 3 ml INH Q4HR [facility] Last Admin: 08/21/21 07:33 Dose: 3 ml Apixaban (Apixaban 5 Mg Tablet) 5 mg PO BID [facility] Last Admin: 08/20/21 20:53 Dose: 5 mg Benzonatate (Benzonatate 100 Mg Capsule) 100 mg PO TID PRN PRN Reason: Cough Last Admin: 08/20/21 20:53 Dose: 100 mg Cetirizine HCl (Cetirizine 10 Mg Tablet) 10 mg PO DAILY PRN PRN Reason: Allergy Symptoms Last Admin: 08/19/21 09:09 Dose: 10 mg Chlordiazepoxide HCl (Chlordiazepoxide 25 Mg Capsule) 25 mg PO TID [facility] Last Admin: 08/21/21 07:30 Dose: 25 mg Cholecalciferol (Cholecalciferol 25 Mcg Tablet) 25 mcg PO DAILY [facility] Last Admin: 08/20/21 08:14 Dose: 25 mcg Furosemide (Furosemide 20 Mg Tablet) 20 mg PO DAILY [facility] Last Admin: 08/20/21 08:14 Dose: 20 mg Guaifenesin (Guaifenesin 600 Mg Tablet) 600 mg PO BID [facility] Last Admin: 08/20/21 20:53 Dose: 600 mg Guaifenesin (Guaifenesin 100 Mg/5 Ml Udc) 100 mg PO Q6HR PRN PRN Reason: Cough Last Admin: 08/20/21 23:28 Dose: 100 mg Ceftriaxone Sodium 2 gm/ (Sodium Chloride) 100 mls @ 200 mls/hr IV DAILY [facility] Stop: 08/22/21 09:29 Last Infusion: 08/20/21 10:04 Dose: Infused Sodium Chloride (Normal Saline 0.9%) 1,000 mls @ 100 mls/hr IV .Q10H [facility] Last Infusion: 08/21/21 07:31 Dose: 0 mls/hr Lisinopril (Lisinopril 5 Mg Tablet) 5 mg PO DAILY [facility] Last Admin: 08/20/21 08:14 Dose: 5 mg Lorazepam (Lorazepam 2 Mg/Ml Vial) 1 mg IVP Q3H PRN PRN Reason: Alcohol Withdrawal Methylprednisolone (Methylprednisolone Succinate 40 Mg/Ml Vial) 60 mg IVP TID [facility] Last Admin: 08/21/21 07:35 Dose: Not Given Ondansetron HCl (Ondansetron Odt 4 Mg Tablet) 4 mg TL Q6HR PRN PRN Reason: Nausea / Vomiting Sodium Chloride (Sodium Chloride Flush 0.9% 10 Ml Syringe) 10 ml IVP PRN PRN PRN Reason: NEEDED PER PROVIDER ORDERS Last Admin: 08/20/21 13:41 Dose: 10 ml Sodium Chloride (Sodium Chloride Flush 0.9% 10 Ml Syringe) 10 ml IVP 0100,0900,1700 [facility] Last Admin: 08/21/21 00:08 Dose: Not Given Thiamine HCl (Thiamine 100 Mg Tablet) 100 mg PO DAILY [facility] Last Admin: 08/20/21 08:14 Dose: 100 mg Trazodone HCl (Trazodone 50 Mg Tablet) 50 mg PO QPM PRN PRN Reason: Insomnia Last Admin: 08/20/21 00:27 Dose: 50 mg Sertraline [Zoloft] 50 mg PO DAILY 01/14/21 traZODone [Desyrel] 50 mg PO QPM PRN 01/14/21 Ascorbic Acid [Vitamin C] 1,000 mg PO DAILY 01/15/21 Cetirizine [ZyrTEC] 10 mg PO DAILY 01/15/21 Cholecalciferol [Vitamin D3] 25 mcg PO DAILY 01/15/21 Furosemide [Lasix] 20 mg PO DAILY 01/15/21 Magnesium Oxide [Magnesium] 400 mg PO DAILY 01/15/21 Melatonin 10 mg PO QPM 01/15/21 Vitamin B Complex 1 tab PO DAILY 01/15/21 Vitamin E 400 unit PO DAILY 01/15/21 estradioL [Estrace] 2 mg PO DAILY 01/15/21 predniSONE [Deltasone] 15 mg PO DAILY 01/15/21 Budesonide/Formoterol Fumarate [Symbicort 160-4.5 Mcg Inhaler] 2 puffs INH BID 08/18/21 Tiotropium [place] [Spiriva] 18 mcg INH DAILY 08/18/21 guaiFENesin [Mucinex] 600 mg PO BID 08/18/21 lisinopriL [Zestril] 5 mg PO DAILY 08/18/21 Potassium Chloride [Klor-Con 10] 10 meq PO DAILY 08/19/21 Objective - Vital Signs/Intake & Output Reviewed Vital Signs: Yes Vital Signs: Vital Signs x48h Temp Pulse Pulse Resp BP Pulse Ox 08/21/21 07:24 36.5 C 103 H 28 H 155/81 H 85 L 08/20/21 23:47 36.9 C 110 H 22 129/83 H 92 Intake & Output: Intake & Output 08/18/21 08/19/21 08/20/21 08/21/21 23:59 23:59 23:59 23:59 Intake Total 590 2880 4447.000 Output Total 100 200 100 Balance 490 2680 4347.000 - Objective General Appearance: positive: Other (He does appear to be in some distress. He does follow commands but just appears uncomfortable and restless.) Eyes Bilateral: positive: Conjunctivae nml ENT: positive: Other (Nasal cannula in place.) Neck: positive: Nml inspection Respiratory: positive: Wheezes, Rhonchi, Other (He is still tachypneic but appears more comfortable compared to yesterday. Is not in any respiratory distress) Cardiovascular: positive: Regular rate & rhythm, Tachycardia. negative: Irregularly irregular, Systolic murmur Abdomen: positive: Other (Ventral hernia noted.). negative: Tenderness Skin: positive: Warm, Dry Extremities: positive: No pedal edema Neurologic/Psychiatric: positive: Other (He does appear agitated. No focal deficits as he is moving all 4 extremities.). negative: Disoriented to person - Lab Results Fish Bones: 08/21/21 04:32 08/21/21 04:32 Other Labs: Lab Results x24hrs 08/21/21 08/21/21 Range/Units 04:32 04:32 WBC 24.2 H (4.8-10.8) x10^3/uL RBC 3.99 L (4.70-6.10) 10^6/uL Hgb 12.6 L (14.0-18.0) g/dL Hct 41.8 L (42.0-52.0) % MCV 104.8 H (80.0-94.0) fL MCH 31.6 H (27.0-31.0) pg MCHC 30.1 L (32.0-36.0) g/dL RDW 13.8 (12.0-15.0) % Plt Count 357 (130-450) 10^3/uL MPV 9.8 (7.4-11.4) fL Neut # (Auto) Not Reportable Lymph # (Auto) Not Reportable [place] # (Auto) Not Reportable Eos # (Auto) Not Reportable Baso # (Auto) Not Reportable Absolute Nucleated RBC Not Reportable Total Counted 100 Band Neuts % (Manual) 14 H (0 - 10) % Abnorm Lymph % (Manual) 0 % Nucleated RBC % Not Reportable Neutrophils # (Manual) 20.8 H (1.5-6.6) 10^3/uL Lymphocytes # (Manual) 1.7 (1.5-3.5) 10^3/uL Monocytes # (Manual) 1.7 H (0.0-1.0) 10^3/uL Eosinophils # (Manual) 0.0 (0-0.7) 10^3/uL Basophils # (Manual) 0.0 (0-0.1) 10^3/uL Differential Comment MANUAL DIFFERENTIAL Platelet Estimate NORMAL (130-450,000) (NORMAL) RBC Morph Micro Appear NORMAL APPEARANCE (NORMAL) Sodium 141 (135-145) mmol/L Potassium 4.7 (3.5-5.0) mmol/L Chloride 102 (101-111) mmol/L Carbon Dioxide 31 (21-32) mmol/L Anion Gap 8.0 (6-13) BUN 34 H (6-20) mg/dL Creatinine 0.9 (0.6-1.2) mg/dL Estimated GFR (MDRD) 84 L (>89) Glucose 170 H (70-100) mg/dL Calcium 8.6 (8.5-10.3) mg/dL ABX Reporting Has patient been on IV antibiotics over the past 48 hours?: Yes Sepsis Event Note (H) - Evaluation Current Stage of Sepsis: Sepsis Possible source of Sepsis: positive: Pulmonary - Sepsis Criteria Sepsis Criteria: Recorded Heart Rate greater than 90 bpm, Recorded Respiratory Rate greater than 20, Respiratory: Increasing oxygen requirements, WBC count greater than 12,000 or less than 4000 Assessment/Plan - Problem List (1) Sepsis Impression: This looks be secondary to the community-acquired pneumonia. His white blood cell count is increasing although he has been afebrile. He has bands present now. Repeat lactic acid remains normal. His blood pressures also been stable. We will broaden antibiotics to cefepime to cover for Pseudomonas given his increasing white blood cell count. (2) Altered mental status Impression: He does appear delirious and this may be due to alcohol withdrawal or the s epsis. Concerns also for hypercapnia given the COPD. His white blood cell count does continue to rise but he has been afebrile. We will recheck labs this morning and lactic acid remains normal. Ammonia is also within normal limits. He had been on Librium which was decreased yesterday but we will increase this to 3 times daily today. We will also add Ativan IV as needed. Continue with CIWA protocol. Given his agitation and ongoing respiratory issues, he will be transferred to the ICU for closer monitoring. We will also check an ABG because if he is hypercapnic then we will start BiPAP. (3) Acute on chronic respiratory failure with hypoxia Impression: He has been on 2 L of oxygen and is currently hypoxic despite that. We are transferring him to the ICU and we will check an ABG to ensure he is not hypercapnic which may be contributing to his delirium. He will remain on antibiotics, steroids, duo nebs. (4) COPD exacerbation Impression: This is contributing to his respiratory failure. He appears improved and looks more comfortable. He still has significant wheezing and rhonchi. We will continue antibiotics, steroids, duo nebs. (5) Community acquired pneumonia Impression: This is the cause of her sepsis and contributing to respiratory failure with h ypoxia. Although he is afebrile and appears from a dyspnea standpoint, his white count continues to rise and he does have bands present. He has been on ceftriaxone azithromycin. We will repeat a chest x-ray today. We will also look to broaden his antibiotics to cover for Pseudomonas. (6) Atrial fibrillation Impression: He currently remains in sinus rhythm. We do have him on p.o. diltiazem and Eliquis for anticoagulation. An echocardiogram has been ordered for tomorrow. The brief episode of atrial fibrillation was likely due to his COPD exacerbation and pneumonia. Qualifiers: Atrial fibrillation type: paroxysmal Qualified Code(s): I48.0 - Paroxysmal atrial fibrillation (7) Alcohol abuse Impression: Concern is that he may be going through alcohol withdrawal at this time. We will continue thiamine and Librium. We will use IV lorazepam as needed. Continue CIWA protocol.
[2021-08-21] MEDS: methylPREDNISolone SUCCINATE 40 MG/ML VIAL IVP SCH ×3 (07:35→21:46)
[2021-08-21 08:18] LABS: ALBUMIN 3.4 g/dL (3.2-5.5); ALKALINE PHOSPHATASE 75 IU/L (42-121); ALT ALANINE AMINOTRANSFERASE 37 IU/L (10-60); AST ASPARTATE AMINOTRANSFERASE 17 IU/L (10-42); BILIRUBIN,TOTAL 0.4 mg/dL (0.2-1.0); TOTAL PROTEIN 6.8 g/dL (6.7-8.2)
[2021-08-21 08:20] LABS: BILIRUBIN,DIRECT < 0.1 mg/dL (0.1-0.5)
--- NOTE | 2021-08-21 08:30 | XRAY Report ---
PROCEDURE: Chest 1 View X-Ray INDICATIONS: Pneumonia. Worsening hypoxia, WBC. TECHNIQUE: One view of the chest was acquired. COMPARISON: 08/18/2021, 06/16/2021. Correlation is made with prior chest CT, 01/14/2021. FINDINGS: Surgical changes and devices: None. Lungs and pleura: No pleural effusions or pneumothorax. A prominent bleb can be seen involving the r ight upper lobe medially. Generalized interstitial prominence can be seen, which is similar to the pr ior and more prominent at the lung bases than elsewhere. Mediastinum: Mediastinal contours appear normal. Heart size is normal. Calcification is seen of th e aortic arch. Bones and chest wall: No suspicious bony lesions. Age-appropriate degenerative changes are seen. O verlying soft tissues appear unremarkable. IMPRESSION: Stable interstitial prominence is seen, which is worst at the lung bases. Stable prominent right upper lobe bleb noted. Reviewed by: Yusuf Lindsey MD on 08/21/2021 7:29 AM [facility] Approved by: Yusuf Lindsey MD on 08/21/2021 7:29 AM [facility] Station ID: [id number]
[2021-08-21 08:34] LABS: ABG BASE EXCESS 2.2 mmol/L (-2.0-3.0); ABG HCO3 32.1 mmol/L (22.0-26.0); ABG PH 7.23 (7.35-7.45); ABG TCO2 34.5 MMOL/L (21.0-29.0)
[2021-08-21 08:35] LABS: ALLEN TEST POSITIVE
[2021-08-21 08:41] LABS: FOLATE 10.88 ng/mL (5.90 - >24.8)
[2021-08-21 08:51] LABS: ABG OXYGEN SATURATION 80 % (94-98); ABG PCO2 78 mmHg (34-45); ABG PO2 45 mmHg (80-100)
[2021-08-21] MEDS: LORazepam 2 MG/ML VIAL IVP PRN ×7 (10:35→22:58)
--- NOTE | 2021-08-21 10:41 | CONSULTATION NOTE ---
Consultation Report: Called for IV placement. #20G IV placed to Left AC x1 attempt.
[2021-08-21 10:59] LABS: MAGNESIUM 2.9 mg/dL (1.7-2.8); PHOSPHORUS 2.9 mg/dL (2.5-4.6)
[2021-08-21] MEDS: CEFEPIME 2 GM in SODIUM CHLORIDE 0.9% MINIBAG 100 ML IV SCH ×2 (11:08→20:26)
[2021-08-21] MEDS: SODIUM CHLORIDE 0.9% 1,000 ML IV SCH (11:09)
[2021-08-21 11:29] LABS: ABG BASE EXCESS 4.4 mmol/L (-2.0-3.0); ABG HCO3 34.5 mmol/L (22.0-26.0); ABG OXYGEN SATURATION 98 % (94-98); ABG PH 7.24 (7.35-7.45); ABG PO2 116 mmHg (80-100)
[2021-08-21 11:30] LABS: ALLEN TEST POSITIVE
[2021-08-21 11:33] LABS: ABG PCO2 82 mmHg (34-45)
[2021-08-21 13:47] LABS: ABG PH 7.32 (7.35-7.45)
[2021-08-21 13:48] LABS: ABG BASE EXCESS 4.6 mmol/L (-2.0-3.0); ABG HCO3 32.5 mmol/L (22.0-26.0); ABG OXYGEN SATURATION 93 % (94-98); ABG PO2 64 mmHg (80-100); ABG TCO2 34.5 MMOL/L (21.0-29.0); ALLEN TEST POSITIVE
[2021-08-21 13:51] LABS: ABG PCO2 64 mmHg (34-45)
[2021-08-21] MEDS: lisinopriL 5 MG TABLET PO SCH (14:11)
[2021-08-21] MEDS: CHOLECALCIFEROL 25 MCG TABLET PO SCH (14:11)
[2021-08-21] MEDS: THIAMINE 100 MG TABLET PO SCH (14:11)
[2021-08-21] MEDS: guaiFENesin 600 MG TABLET PO SCH ×2 (14:11→20:32)
[2021-08-21] MEDS: FUROSEMIDE 20 MG TABLET PO SCH (14:11)
[2021-08-21] MEDS: APIXABAN 5 MG TABLET PO SCH ×2 (14:11→20:32)
[2021-08-21] MEDS: METOPROLOL 5 MG/5 ML VIAL IVP SCH (17:35)
[2021-08-21] MEDS: INSULIN REGULAR HUMAN 300 UNIT/3 ML VIAL SUBQ SCH (17:48)
[2021-08-22] MEDS: LORazepam 2 MG/ML VIAL IVP PRN ×2 (00:10→02:21)
[2021-08-22] MEDS: METOPROLOL 5 MG/5 ML VIAL IVP SCH ×4 (00:10→18:22)
[2021-08-22] MEDS: SODIUM CHLORIDE FLUSH 0.9% 10 ML SYRINGE IVP SCH ×3 (00:12→15:46)
[2021-08-22] MEDS: INSULIN REGULAR HUMAN 300 UNIT/3 ML VIAL SUBQ SCH ×4 (00:14→18:14)
[2021-08-22 05:45] LABS: BASOPHILS % (AUTO) 0.2 %; EOSINOPHILS % (AUTO) 0.4 %; HCT - HEMATOCRIT 39.3 % (42.0-52.0); HGB - HEMOGLOBIN 12.3 g/dL (14.0-18.0); LYMPHOCYTES % (AUTO) 3.5 %; MEAN CORPUSCULAR HEMOGLOBIN 31.7 pg (27.0-31.0); MEAN CORPUSCULAR HGB CONC 31.3 g/dL (32.0-36.0); MEAN CORPUSCULAR VOLUME 101.3 fL (80.0-94.0); MEAN PLATELET VOLUME 9.6 fL (7.4-11.4); MONOCYTES % (AUTO) 9.6 %; NEUTROPHILS % (AUTO) 84.2 %; PLT - PLATELET COUNT 332 10^3/uL (130-450); RED BLOOD COUNT 3.88 10^6/uL (4.70-6.10); RED CELL DISTRIBUTION WIDTH 13.3 % (12.0-15.0); WHITE BLOOD COUNT 19.6 x10^3/uL (4.8-10.8)
[2021-08-22 05:48] LABS: CALCIUM, IONIZED 1.12 mmol/L (1.15-1.33); VBG PH 7.374 (7.31-7.41)
[2021-08-22 05:52] LABS: ABNORMAL LYMPHS % (MANUAL) 0 %; BAND NEUTROPHILS % (MANUAL) 0 %
[2021-08-22 05:56] LABS: MAGNESIUM 2.8 mg/dL (1.7-2.8); PHOSPHORUS 2.7 mg/dL (2.5-4.6)
[2021-08-22 06:06] LABS: LYMPHOCYTES # (MANUAL) 1.2 10^3/uL (1.5-3.5); LYMPHOCYTES % (MANUAL) 6 %; MONOCYTES # (MANUAL) 1.6 10^3/uL (0.0-1.0); NEUTROPHILS # (MANUAL) 16.9 10^3/uL (1.5-6.6); RBC MORPHOLOGY (MULTIPLE) NORMAL APPEARANCE (NORMAL)
[2021-08-22 06:07] LABS: DIFFERENTIAL COMMENT MANUAL DIFFERENTIAL; PLATELET ESTIMATE, MANUAL NORMAL (130-450,000) (NORMAL); PLATELET MORPHOLOGY NORMAL APPEARANCE (NORMAL); WBC MORPHOLOGY (MULTIPLE) NORMAL APPEARANCE (NORMAL)
[2021-08-22 06:11] LABS: CALCIUM 8.8 mg/dL (8.5-10.3); CREATININE 0.8 mg/dL (0.6-1.2); POTASSIUM 4.5 mmol/L (3.5-5.0)
[2021-08-22] MEDS: methylPREDNISolone SUCCINATE 40 MG/ML VIAL IVP SCH ×2 (06:11→14:10)
[2021-08-22] MEDS: chlordiazePOXIDE 25 MG CAPSULE PO SCH ×2 (06:11→13:36)
[2021-08-22] MEDS: IPRATROPIUM/ALBUTEROL 3 ML NEB INH SCH ×7 (06:58→21:29)
--- NOTE | 2021-08-22 07:31 | PROVIDER PROGRESS NOTE ---
Subjective - Prog Note Date Prog Note Date: 08/22/21 - Subjective Subjective: He was been agitated overnight and required Ativan. He remains on BiPAP this morning. Current Medications - Current Medications Current Medications: Active Medications Acetaminophen (Acetaminophen 325 Mg Tablet) 650 mg PO Q4HR PRN PRN Reason: Pain 1 to 4, or Fever Last Admin: 08/20/21 20:53 Dose: 650 mg Albuterol (Albuterol Neb 2.5 Mg/3 Ml) 2.5 mg INH RTQ4H PRN PRN Reason: Wheezing Last Admin: 08/19/21 18:02 Dose: 2.5 mg Albuterol/Ipratropium (Ipratropium/Albuterol 3 Ml Neb) 3 ml INH Q4HR ELISABET Last Admin: 08/22/21 16:51 Dose: 3 ml Benzonatate (Benzonatate 100 Mg Capsule) 100 mg PO TID PRN PRN Reason: Cough Last Admin: 08/20/21 20:53 Dose: 100 mg Cetirizine HCl (Cetirizine 10 Mg Tablet) 10 mg PO DAILY PRN PRN Reason: Allergy Symptoms Last Admin: 08/19/21 09:09 Dose: 10 mg Chlordiazepoxide HCl (Chlordiazepoxide 25 Mg Capsule) 25 mg PO TID [facility] Last Admin: 08/22/21 13:36 Dose: Not Given Cholecalciferol (Cholecalciferol 25 Mcg Tablet) 25 mcg PO DAILY [facility] Last Admin: 08/22/21 08:30 Dose: Not Given Enoxaparin Sodium (Enoxaparin 40 Mg/0.4 Ml Syringe) 40 mg SUBQ DAILY [facility] Last Admin: 08/22/21 11:24 Dose: 40 mg Furosemide (Furosemide 20 Mg Tablet) 20 mg PO DAILY [facility] Last Admin: 08/22/21 08:30 Dose: Not Given Guaifenesin (Guaifenesin 600 Mg Tablet) 600 mg PO BID [facility] Last Admin: 08/22/21 08:30 Dose: Not Given Guaifenesin (Guaifenesin 100 Mg/5 Ml Udc) 100 mg PO Q6HR PRN PRN Reason: Cough Last Admin: 08/20/21 23:28 Dose: 100 mg Cefepime HCl 2 gm/ Sodium (Chloride) 100 mls @ 200 mls/hr IV BID [facility] Last Infusion: 08/22/21 11:26 Dose: Infused Thiamine HCl 100 mg/ Sodium (Chloride) 101 mls @ 202 mls/hr IV DAILY [facility] Insulin Human Regular (Insulin Regular Human 300 Unit/3 Ml Vial) 1 - 9 unit SUBQ Q6HR [facility]; Protocol Last Admin: 08/22/21 11:26 Dose: Not Given Ketorolac Tromethamine (Ketorolac 15 Mg/Ml Vial) 15 mg IVP Q6HR PRN PRN Reason: PAIN Stop: 08/27/21 15:33 Last Admin: 08/22/21 15:45 Dose: 15 mg Lisinopril (Lisinopril 5 Mg Tablet) 5 mg PO DAILY [facility] Last Admin: 08/22/21 08:30 Dose: Not Given Lorazepam (Lorazepam 2 Mg/Ml Vial) 1 mg IVP Q1H PRN PRN Reason: Alcohol Withdrawal Last Admin: 08/22/21 02:21 Dose: 1 mg Methylprednisolone (Methylprednisolone Succinate 40 Mg/Ml Vial) 40 mg IVP TID [facility] Last Admin: 08/22/21 14:10 Dose: 40 mg Metoprolol Tartrate (Metoprolol 5 Mg/5 Ml Vial) 5 mg IVP Q6HR [facility] Last Admin: 08/22/21 11:47 Dose: 5 mg Ondansetron HCl (Ondansetron Odt 4 Mg Tablet) 4 mg TL Q6HR PRN PRN Reason: Nausea / Vomiting Sodium Chloride (Sodium Chloride Flush 0.9% 10 Ml Syringe) 10 ml IVP PRN PRN PRN Reason: NEEDED PER PROVIDER ORDERS Last Admin: 08/20/21 13:41 Dose: 10 ml Sodium Chloride (Sodium Chloride Flush 0.9% 10 Ml Syringe) 10 ml IVP 0100,0900,1700 [facility] Last Admin: 08/22/21 15:46 Dose: 10 ml Trazodone HCl (Trazodone 50 Mg Tablet) 50 mg PO QPM PRN PRN Reason: Insomnia Last Admin: 08/20/21 00:27 Dose: 50 mg Sertraline [Zoloft] 50 mg PO DAILY 01/14/21 traZODone [Desyrel] 50 mg PO QPM PRN 01/14/21 Ascorbic Acid [Vitamin C] 1,000 mg PO DAILY 01/15/21 Cetirizine [ZyrTEC] 10 mg PO DAILY 01/15/21 Cholecalciferol [Vitamin D3] 25 mcg PO DAILY 01/15/21 Furosemide [Lasix] 20 mg PO DAILY 01/15/21 Magnesium Oxide [Magnesium] 400 mg PO DAILY 01/15/21 Melatonin 10 mg PO QPM 01/15/21 Vitamin B Complex 1 tab PO DAILY 01/15/21 Vitamin E 400 unit PO DAILY 01/15/21 estradioL [Estrace] 2 mg PO DAILY 01/15/21 predniSONE [Deltasone] 15 mg PO DAILY 01/15/21 Budesonide/Formoterol Fumarate [Symbicort 160-4.5 Mcg Inhaler] 2 puffs INH BID 08/18/21 Tiotropium [place] [Spiriva] 18 mcg INH DAILY 08/18/21 guaiFENesin [Mucinex] 600 mg PO BID 08/18/21 lisinopriL [Zestril] 5 mg PO DAILY 08/18/21 Potassium Chloride [Klor-Con 10] 10 meq PO DAILY 08/19/21 Objective - Vital Signs/Intake & Output Reviewed Vital Signs: Yes Vital Signs: Vital Signs Pulse Pulse Resp BP BP Pulse Ox 08/22/21 07:00 73 23 150/87 H 100 08/22/21 06:10 153/85 H 08/22/21 06:00 83 23 153/85 H 99 08/22/21 05:12 85 08/22/21 05:00 76 23 153/88 H 100 08/22/21 04:00 79 24 149/86 H 100 Intake & Output: Intake & Output 08/19/21 08/20/21 08/21/21 08/22/21 23:59 23:59 23:59 23:59 Intake Total 2880 4447.000 2100 0 Output Total 200 100 Balance 2680 4347.000 2100 0 - Objective General Appearance: positive: Other (He is lethargic but easily aroused. Does not follow commands.) ENT: positive: ENT inspection nml, Other (BiPAP mask in place.) Neck: positive: Nml inspection Respiratory: positive: Other (Tachypneic but this is improved. Faint expiratory wheezes and rhonchi.) Cardiovascular: positive: Regular rate & rhythm, No murmur. negative: Tachycardia Abdomen: positive: Other (Ventral hernia noted). negative: Tenderness Skin: positive: Warm Extremities: positive: No pedal edema Neurologic/Psychiatric: positive: Other (He does not follow commands but he does move all 4 extremities. No obvious focal deficits.) - Lab Results Fish Bones: 08/22/21 05:31 08/22/21 05:31 Other Labs: Lab Results x24hrs 08/22/21 08/22/21 08/22/21 Range/Units 05:31 05:31 05:31 WBC (4.8-10.8) x10^3/uL RBC (4.70-6.10) 10^6/uL Hgb (14.0-18.0) g/dL Hct (42.0-52.0) % MCV (80.0-94.0) fL MCH (27.0-31.0) pg MCHC (32.0-36.0) g/dL RDW (12.0-15.0) % Plt Count (130-450) 10^3/uL MPV (7.4-11.4) fL Neut # (Auto) Lymph # (Auto) [place] # (Auto) Eos # (Auto) Baso # (Auto) Absolute Nucleated RBC Total Counted Band Neuts % (Manual) (0 - 10) % Abnorm Lymph % (Manual) % Nucleated RBC % Neutrophils # (Manual) (1.5-6.6) 10^3/uL Lymphocytes # (Manual) (1.5-3.5) 10^3/uL Monocytes # (Manual) (0.0-1.0) 10^3/uL Eosinophils # (Manual) (0-0.7) 10^3/uL Basophils # (Manual) (0-0.1) 10^3/uL Differential Comment WBC Morphology (NORMAL) Platelet Estimate (NORMAL) Platelet Morphology (NORMAL) RBC Morph Micro Appear (NORMAL) Bld Gas Analysis Time Sample Site ABG pH (7.35-7.45) ABG pCO2 (34-45) mmHg ABG pO2 (80-100) mmHg ABG HCO3 (22.0-26.0) mmol/L ABG Total CO2 (21.0-29.0) MMOL/L ABG O2 Saturation (94-98) % ABG Base Excess (-2.0-3.0) mmol/L Ganga Test VBG pH 7.374 (7.31-7.41) Ionized Calcium 1.12 L (1.15-1.33) mmol/L O2 Delivery Device O2 Liters/Min LPM FiO2 EPAP cmH2O IPAP cmH2O Sodium 141 (135-145) mmol/L Potassium 4.5 (3.5-5.0) mmol/L Chloride 100 L (101-111) mmol/L Carbon Dioxide 36 H (21-32) mmol/L Anion Gap 5.0 L (6-13) BUN 29 H (6-20) mg/dL Creatinine 0.8 (0.6-1.2) mg/dL Estimated GFR (MDRD) 96 (>89) Glucose 144 H (70-100) mg/dL Lactic Acid (0.5-2.2) mmol/L Calcium 8.8 (8.5-10.3) mg/dL Phosphorus 2.7 (2.5-4.6) mg/dL Magnesium 2.8 (1.7-2.8) mg/dL Total Bilirubin (0.2-1.0) mg/dL Direct Bilirubin (0.1-0.5) mg/dL AST (10-42) IU/L ALT (10-60) IU/L Alkaline Phosphatase (42-121) IU/L Ammonia (7-35) umol/L Total Protein (6.7-8.2) g/dL Albumin (3.2-5.5) g/dL Globulin (2.1-4.2) g/dL Vitamin B12 (180-914) pg/mL Folate (5.90 - >24.8) ng/mL Nasal Screen MRSA (PCR) (NEGATIVE) 08/22/21 08/21/21 08/21/21 Range/Units 05:31 13:49 13:40 WBC 19.6 H (4.8-10.8) x10^3/uL RBC 3.88 L (4.70-6.10) 10^6/uL Hgb 12.3 L (14.0-18.0) g/dL Hct 39.3 L (42.0-52.0) % MCV 101.3 H (80.0-94.0) fL MCH 31.7 H (27.0-31.0) pg MCHC 31.3 L (32.0-36.0) g/dL RDW 13.3 (12.0-15.0) % Plt Count 332 (130-450) 10^3/uL MPV 9.6 (7.4-11.4) fL Neut # (Auto) Not Reportable Lymph # (Auto) Not Reportable [place] # (Auto) Not Reportable Eos # (Auto) Not Reportable Baso # (Auto) Not Reportable Absolute Nucleated RBC Not Reportable Total Counted 100 Band Neuts % (Manual) 0 (0 - 10) % Abnorm Lymph % (Manual) 0 % Nucleated RBC % Not Reportable Neutrophils # (Manual) 16.9 H (1.5-6.6) 10^3/uL Lymphocytes # (Manual) 1.2 L (1.5-3.5) 10^3/uL Monocytes # (Manual) 1.6 H (0.0-1.0) 10^3/uL Eosinophils # (Manual) 0.0 (0-0.7) 10^3/uL Basophils # (Manual) 0.0 (0-0.1) 10^3/uL Differential Comment MANUAL DIFFERENTIAL WBC Morphology NORMAL APPEARANCE (NORMAL) Platelet Estimate NORMAL (130-450,000) (NORMAL) Platelet Morphology NORMAL APPEARANCE (NORMAL) RBC Morph Micro Appear NORMAL APPEARANCE (NORMAL) Bld Gas Analysis Time 1345 Sample Site RIGHT RADIAL ABG pH 7.32 L (7.35-7.45) ABG pCO2 64 H* (34-45) mmHg ABG pO2 64 L (80-100) mmHg ABG HCO3 32.5 H (22.0-26.0) mmol/L ABG Total CO2 34.5 H (21.0-29.0) MMOL/L ABG O2 Saturation 93 L (94-98) % ABG Base Excess 4.6 H (-2.0-3.0) mmol/L Ganga Test POSITIVE VBG pH (7.31-7.41) Ionized Calcium (1.15-1.33) mmol/L O2 Delivery Device BiPAP O2 Liters/Min LPM FiO2 30.00 EPAP 5 cmH2O IPAP 16 cmH2O Sodium (135-145) mmol/L Potassium (3.5-5.0) mmol/L Chloride (101-111) mmol/L Carbon Dioxide (21-32) mmol/L Anion Gap (6-13) BUN (6-20) mg/dL Creatinine (0.6-1.2) mg/dL Estimated GFR (MDRD) (>89) Glucose (70-100) mg/dL Lactic Acid (0.5-2.2) mmol/L Calcium (8.5-10.3) mg/dL Phosphorus (2.5-4.6) mg/dL Magnesium (1.7-2.8) mg/dL Total Bilirubin (0.2-1.0) mg/dL Direct Bilirubin (0.1-0.5) mg/dL AST (10-42) IU/L ALT (10-60) IU/L Alkaline Phosphatase (42-121) IU/L Ammonia (7-35) umol/L Total Protein (6.7-8.2) g/dL Albumin (3.2-5.5) g/dL Globulin (2.1-4.2) g/dL Vitamin B12 (180-914) pg/mL Folate (5.90 - >24.8) ng/mL Nasal Screen MRSA (PCR) NEGATIVE (NEGATIVE) 08/21/21 08/21/21 08/21/21 Range/Units 11:05 08:30 07:55 WBC (4.8-10.8) x10^3/uL RBC (4.70-6.10) 10^6/uL Hgb (14.0-18.0) g/dL Hct (42.0-52.0) % MCV (80.0-94.0) fL MCH (27.0-31.0) pg MCHC (32.0-36.0) g/dL RDW (12.0-15.0) % Plt Count (130-450) 10^3/uL MPV (7.4-11.4) fL Neut # (Auto) Lymph # (Auto) [place] # (Auto) Eos # (Auto) Baso # (Auto) Absolute Nucleated RBC Total Counted Band Neuts % (Manual) (0 - 10) % Abnorm Lymph % (Manual) % Nucleated RBC % Neutrophils # (Manual) (1.5-6.6) 10^3/uL Lymphocytes # (Manual) (1.5-3.5) 10^3/uL Monocytes # (Manual) (0.0-1.0) 10^3/uL Eosinophils # (Manual) (0-0.7) 10^3/uL Basophils # (Manual) (0-0.1) 10^3/uL Differential Comment WBC Morphology (NORMAL) Platelet Estimate (NORMAL) Platelet Morphology (NORMAL) RBC Morph Micro Appear (NORMAL) Bld Gas Analysis Time 1119 0831 Sample Site RIGHT RADIAL RIGHT RADIAL ABG pH 7.24 L 7.23 L (7.35-7.45) ABG pCO2 82 H* 78 H* (34-45) mmHg ABG pO2 116 H 45 L* (80-100) mmHg ABG HCO3 34.5 H 32.1 H (22.0-26.0) mmol/L ABG Total CO2 37.0 H 34.5 H (21.0-29.0) MMOL/L ABG O2 Saturation 98 80 L* (94-98) % ABG Base Excess 4.4 H 2.2 (-2.0-3.0) mmol/L Ganga Test POSITIVE POSITIVE VBG pH (7.31-7.41) Ionized Calcium (1.15-1.33) mmol/L O2 Delivery Device [place] O2 Liters/Min 3.00 LPM FiO2 45.00 EPAP 5 cmH2O IPAP 14 cmH2O Sodium (135-145) mmol/L Potassium (3.5-5.0) mmol/L Chloride (101-111) mmol/L Carbon Dioxide (21-32) mmol/L Anion Gap (6-13) BUN (6-20) mg/dL Creatinine (0.6-1.2) mg/dL Estimated GFR (MDRD) (>89) Glucose (70-100) mg/dL Lactic Acid (0.5-2.2) mmol/L Calcium (8.5-10.3) mg/dL Phosphorus 2.9 (2.5-4.6) mg/dL Magnesium 2.9 H (1.7-2.8) mg/dL Total Bilirubin (0.2-1.0) mg/dL Direct Bilirubin (0.1-0.5) mg/dL AST (10-42) IU/L ALT (10-60) IU/L Alkaline Phosphatase (42-121) IU/L Ammonia (7-35) umol/L Total Protein (6.7-8.2) g/dL Albumin (3.2-5.5) g/dL Globulin (2.1-4.2) g/dL Vitamin B12 (180-914) pg/mL Folate (5.90 - >24.8) ng/mL Nasal Screen MRSA (PCR) (NEGATIVE) 08/21/21 08/21/21 08/21/21 Range/Units 07:55 07:55 07:55 WBC (4.8-10.8) x10^3/uL RBC (4.70-6.10) 10^6/uL Hgb (14.0-18.0) g/dL Hct (42.0-52.0) % MCV (80.0-94.0) fL MCH (27.0-31.0) pg MCHC (32.0-36.0) g/dL RDW (12.0-15.0) % Plt Count (130-450) 10^3/uL MPV (7.4-11.4) fL Neut # (Auto) Lymph # (Auto) [place] # (Auto) Eos # (Auto) Baso # (Auto) Absolute Nucleated RBC Total Counted Band Neuts % (Manual) (0 - 10) % Abnorm Lymph % (Manual) % Nucleated RBC % Neutrophils # (Manual) (1.5-6.6) 10^3/uL Lymphocytes # (Manual) (1.5-3.5) 10^3/uL Monocytes # (Manual) (0.0-1.0) 10^3/uL Eosinophils # (Manual) (0-0.7) 10^3/uL Basophils # (Manual) (0-0.1) 10^3/uL Differential Comment WBC Morphology (NORMAL) Platelet Estimate (NORMAL) Platelet Morphology (NORMAL) RBC Morph Micro Appear (NORMAL) Bld Gas Analysis Time Sample Site ABG pH (7.35-7.45) ABG pCO2 (34-45) mmHg ABG pO2 (80-100) mmHg ABG HCO3 (22.0-26.0) mmol/L ABG Total CO2 (21.0-29.0) MMOL/L ABG O2 Saturation (94-98) % ABG Base Excess (-2.0-3.0) mmol/L Ganga Test VBG pH (7.31-7.41) Ionized Calcium (1.15-1.33) mmol/L O2 Delivery Device O2 Liters/Min LPM FiO2 EPAP cmH2O IPAP cmH2O Sodium (135-145) mmol/L Potassium (3.5-5.0) mmol/L Chloride (101-111) mmol/L Carbon Dioxide (21-32) mmol/L Anion Gap (6-13) BUN (6-20) mg/dL Creatinine (0.6-1.2) mg/dL Estimated GFR (MDRD) (>89) Glucose (70-100) mg/dL Lactic Acid 0.9 (0.5-2.2) mmol/L Calcium (8.5-10.3) mg/dL Phosphorus (2.5-4.6) mg/dL Magnesium (1.7-2.8) mg/dL Total Bilirubin (0.2-1.0) mg/dL Direct Bilirubin (0.1-0.5) mg/dL AST (10-42) IU/L ALT (10-60) IU/L Alkaline Phosphatase (42-121) IU/L Ammonia 26.2 (7-35) umol/L Total Protein (6.7-8.2) g/dL Albumin (3.2-5.5) g/dL Globulin (2.1-4.2) g/dL Vitamin B12 562 (180-914) pg/mL Folate 10.88 (5.90 - >24.8) ng/mL Nasal Screen MRSA (PCR) (NEGATIVE) 08/21/21 Range/Units 07:55 WBC (4.8-10.8) x10^3/uL RBC (4.70-6.10) 10^6/uL Hgb (14.0-18.0) g/dL Hct (42.0-52.0) % MCV (80.0-94.0) fL MCH (27.0-31.0) pg MCHC (32.0-36.0) g/dL RDW (12.0-15.0) % Plt Count (130-450) 10^3/uL MPV (7.4-11.4) fL Neut # (Auto) Lymph # (Auto) [place] # (Auto) Eos # (Auto) Baso # (Auto) Absolute Nucleated RBC Total Counted Band Neuts % (Manual) (0 - 10) % Abnorm Lymph % (Manual) % Nucleated RBC % Neutrophils # (Manual) (1.5-6.6) 10^3/uL Lymphocytes # (Manual) (1.5-3.5) 10^3/uL Monocytes # (Manual) (0.0-1.0) 10^3/uL Eosinophils # (Manual) (0-0.7) 10^3/uL Basophils # (Manual) (0-0.1) 10^3/uL Differential Comment WBC Morphology (NORMAL) Platelet Estimate (NORMAL) Platelet Morphology (NORMAL) RBC Morph Micro Appear (NORMAL) Bld Gas Analysis Time Sample Site ABG pH (7.35-7.45) ABG pCO2 (34-45) mmHg ABG pO2 (80-100) mmHg ABG HCO3 (22.0-26.0) mmol/L ABG Total CO2 (21.0-29.0) MMOL/L ABG O2 Saturation (94-98) % ABG Base Excess (-2.0-3.0) mmol/L Ganga Test VBG pH (7.31-7.41) Ionized Calcium (1.15-1.33) mmol/L O2 Delivery Device O2 Liters/Min LPM FiO2 EPAP cmH2O IPAP cmH2O Sodium (135-145) mmol/L Potassium (3.5-5.0) mmol/L Chloride (101-111) mmol/L Carbon Dioxide (21-32) mmol/L Anion Gap (6-13) BUN (6-20) mg/dL Creatinine (0.6-1.2) mg/dL Estimated GFR (MDRD) (>89) Glucose (70-100) mg/dL Lactic Acid (0.5-2.2) mmol/L Calcium (8.5-10.3) mg/dL Phosphorus (2.5-4.6) mg/dL Magnesium (1.7-2.8) mg/dL Total Bilirubin 0.4 (0.2-1.0) mg/dL Direct Bilirubin < 0.1 L (0.1-0.5) mg/dL AST 17 (10-42) IU/L ALT 37 (10-60) IU/L Alkaline Phosphatase 75 (42-121) IU/L Ammonia (7-35) umol/L Total Protein 6.8 (6.7-8.2) g/dL Albumin 3.4 (3.2-5.5) g/dL Globulin 3.4 (2.1-4.2) g/dL Vitamin B12 (180-914) pg/mL Folate (5.90 - >24.8) ng/mL Nasal Screen MRSA (PCR) (NEGATIVE) Sepsis Event Note (H) - Evaluation Current Stage of Sepsis: Sepsis Possible source of Sepsis: positive: Pulmonary - Sepsis Criteria Sepsis Criteria: Recorded Heart Rate greater than 90 bpm, Recorded Respiratory Rate greater than 20, Respiratory: Increasing oxygen requirements, WBC count greater than 12,000 or less than 4000 Assessment/Plan - Problem List (1) Encephalopathy Impression: He is still quite enteropathic and suspect is likely multifactorial. Initial thought was this may be related to alcohol withdrawal but I think this is less likely at this point. He may have benzodiazepine delirium from the Ativan he has been receiving. He is hypercapnic but his most recent ABG did not reveal a significantly reduced pH or an elevated carbon oxide that I would expect in cherise garza who was this encephalopathic. He was started on cefepime yesterday which can have some neurotoxicity but this once again thought to be less likely at this time. The high-dose Solu-Medrol may also be contributing to this so we will decrease it to twice daily We will order a CT of the head for further evaluation although he has no focal deficits. An ammonia is already checked and this was within normal limits. We will follow-up to CT the head and we will limit the use of Ativan. We will recheck another ABG if necessary. (2) Acute on chronic respiratory failure with hypoxia and hypercapnia Impression: This is secondary to COPD exacerbation, the pneumonia and as well as likely the encephalopathy. He was started on BiPAP yesterday with improvement in his ABG. He is still slightly hypercapnic but he is most definitely a chronic retainer. We will continue to manage his COPD as mentioned below with steroids, antibiotics, nebulizers. The patient on BiPAP. We will limit the use of the Ativan this may be contributing to his encephalopathy. He is a DNR but was agreeable to mechanical ventilation and if necessary we will intubate him. (3) Sepsis Impression: This is secondary to community-acquired pneumonia. Yesterday we switched him to cefepime there was concern for potential Pseudomonas infection given his ongoing dyspnea and rising white blood cell count. His white blood cell count is improved today. He is already completed 3 days of azithromycin. We will keep him on cefepime with today being day 2. We will treat for at least 5 days. (4) COPD exacerbation Impression: This is contributing to his respiratory failure. Although his wants for pathic today, he does appear more comfortable from a dyspnea standpoint. We will continue with Solu-Medrol decreased to 40 mg twice daily given he has less wheezing on exam. We will continue with the cefepime for the community-acquired pneumonia. Continue duo nebs every 4 and albuterol as needed. We will continue with BiPAP. (5) Community acquired pneumonia Impression: This is a cause of his sepsis. We will keep him on cefepime for Pseudomonas cov erage. Today is day 2 of the cefepime and he has already completed 3 days of azithromycin. We will treat for at least 5 days. (6) Atrial fibrillation Impression: He remains in sinus rhythm but have a brief episode of a tribulation shortly after admission. We currently have him on IV Lopressor given he cannot take p.o. We are holding Eliquis but this can be resumed once his mentation improves. An echocardiogram has been ordered and we are hoping to obtain this tomorrow. Continue to monitor on telemetry. Qualifiers: Atrial fibrillation type: paroxysmal Qualified Code(s): I48.0 - Paroxysmal atrial fibrillation (7) Alcohol abuse Impression: Initial concern was for alcohol withdrawal but I suspect that he has benzodiazepine delirium at this time. We will continue with thiamine IV daily. We will limit the use of Ativan.
[2021-08-22] MEDS: lisinopriL 5 MG TABLET PO SCH (08:30)
[2021-08-22] MEDS: APIXABAN 5 MG TABLET PO SCH (08:30)
[2021-08-22] MEDS: CHOLECALCIFEROL 25 MCG TABLET PO SCH (08:30)
[2021-08-22] MEDS: guaiFENesin 600 MG TABLET PO SCH ×2 (08:30→20:35)
[2021-08-22] MEDS: FUROSEMIDE 20 MG TABLET PO SCH (08:30)
[2021-08-22 08:55] LABS: ABG PH 7.37 (7.35-7.45); ABG PO2 61 mmHg (80-100)
[2021-08-22 08:56] LABS: ABG BASE EXCESS 8.7 mmol/L (-2.0-3.0); ABG HCO3 36.3 mmol/L (22.0-26.0); ABG OXYGEN SATURATION 92 % (94-98); ABG TCO2 38.2 MMOL/L (21.0-29.0); ALLEN TEST POSITIVE
[2021-08-22] MEDS ORDERED: THIAMINE INJ 100 MG in SODIUM CHLORIDE 0.9% 50 ML IV SCH (09:00)
[2021-08-22 09:02] LABS: ABG PCO2 64 mmHg (34-45)
[2021-08-22] MEDS: CEFEPIME 2 GM in SODIUM CHLORIDE 0.9% MINIBAG 100 ML IV SCH ×2 (09:22→20:59)
[2021-08-22] MEDS: ENOXAPARIN 40 MG/0.4 ML SYRINGE SUBQ SCH (11:24)
--- NOTE | 2021-08-22 12:24 | CT Report ---
PROCEDURE: HEAD WO INDICATIONS: Altered mental status. TECHNIQUE: Noncontrast 4.5 mm thick angled axial sections acquired from the foramen magnum to the vertex. For r adiation dose reduction, the following was used: automated exposure control, adjustment of mA and/or kV according to patient size. COMPARISON: None. FINDINGS: Mild global cerebral volume loss and chronic microvascular ischemic changes. No acute intracranial he morrhage, abnormal extra axial fluid collection, mass effect or midline shift. Normal ventricular storm iber and position. Patent basilar cisterns. Fregoso-white matter differentiation is maintained, without CT evidence of an acute large territory infarct. No acute orbital abnormality. Paranasal sinuses and mastoid air cells predominantly clear. No acute or suspicious osseous lesion demonstrated. IMPRESSION: No acute intracranial finding. Reviewed by: Kimo Estrada MD on 08/22/2021 12:23 PM PDT Approved by: Kimo Estrada MD on 08/22/2021 12:23 PM PDT Station ID: [id number]
[2021-08-22] MEDS ORDERED: WATER FOR INJECTION,STERILE 10 ML MC ONE (14:14)
[2021-08-22] MEDS ORDERED: KETOROLAC 15 MG/ML VIAL IVP PRN (15:34)
[2021-08-22] MEDS ORDERED: CARBOXYMETHYLCELLULOSE OPHTH DROPS EACHEYE PRN (20:17)
[2021-08-22] MEDS ORDERED: MIN OIL/DIMETHICON/COCONUT OIL 92 GM TUBE TOP PRN (20:17)
[2021-08-22] MEDS: SODIUM CHLORIDE FLUSH 0.9% 10 ML SYRINGE IVP PRN (21:00)
[2021-08-23] MEDS: INSULIN REGULAR HUMAN 300 UNIT/3 ML VIAL SUBQ SCH ×3 (00:08→12:00)
[2021-08-23] MEDS: SODIUM CHLORIDE FLUSH 0.9% 10 ML SYRINGE IVP SCH ×4 (00:09→23:56)
[2021-08-23] MEDS: METOPROLOL 5 MG/5 ML VIAL IVP SCH ×5 (00:09→23:55)
[2021-08-23] MEDS: IPRATROPIUM/ALBUTEROL 3 ML NEB INH SCH ×5 (01:35→14:52)
[2021-08-23 05:09] LABS: BASOPHILS % (AUTO) 0.3 %; EOSINOPHILS % (AUTO) 0.1 %; HCT - HEMATOCRIT 39.6 % (42.0-52.0); HGB - HEMOGLOBIN 12.5 g/dL (14.0-18.0); LYMPHOCYTES % (AUTO) 8.1 %; MEAN CORPUSCULAR HEMOGLOBIN 31.6 pg (27.0-31.0); MEAN CORPUSCULAR HGB CONC 31.6 g/dL (32.0-36.0); MEAN PLATELET VOLUME 9.6 fL (7.4-11.4); MONOCYTES % (AUTO) 12.8 %; NEUTROPHILS % (AUTO) 75.9 %; PLT - PLATELET COUNT 339 10^3/uL (130-450); RED BLOOD COUNT 3.96 10^6/uL (4.70-6.10); RED CELL DISTRIBUTION WIDTH 12.8 % (12.0-15.0); WHITE BLOOD COUNT 19.5 x10^3/uL (4.8-10.8)
[2021-08-23 05:17] LABS: ABNORMAL LYMPHS % (MANUAL) 0 %; BAND NEUTROPHILS % (MANUAL) 0 %
[2021-08-23 05:23] LABS: CALCIUM 8.4 mg/dL (8.5-10.3); CREATININE 0.8 mg/dL (0.6-1.2); POTASSIUM 3.8 mmol/L (3.5-5.0)
[2021-08-23 05:27] LABS: LYMPHOCYTES # (MANUAL) 1.2 10^3/uL (1.5-3.5); LYMPHOCYTES % (MANUAL) 6 %; MONOCYTES # (MANUAL) 2.5 10^3/uL (0.0-1.0); NEUTROPHILS # (MANUAL) 15.8 10^3/uL (1.5-6.6)
[2021-08-23 05:28] LABS: DIFFERENTIAL COMMENT MANUAL DIFFERENTIAL; PLATELET ESTIMATE, MANUAL NORMAL (130-450,000) (NORMAL); PLATELET MORPHOLOGY NORMAL APPEARANCE (NORMAL); RBC MORPHOLOGY (MULTIPLE) NORMAL APPEARANCE (NORMAL); WBC MORPHOLOGY (MULTIPLE) NORMAL APPEARANCE (NORMAL)
[2021-08-23 06:04] LABS: MAGNESIUM 2.9 mg/dL (1.7-2.8); PHOSPHORUS 2.3 mg/dL (2.5-4.6)
[2021-08-23] MEDS: SODIUM CHLORIDE FLUSH 0.9% 10 ML SYRINGE IVP PRN ×2 (06:12→20:31)
--- NOTE | 2021-08-23 08:16 | PROVIDER PROGRESS NOTE ---
Subjective - Prog Note Date Prog Note Date: 08/23/21 - Subjective Subjective: He is somnolent, awakens, is minimally communicative. Objective - Vital Signs/Intake & Output Reviewed Vital Signs: Yes Vital Signs: Vital Signs Pulse Pulse Resp BP BP Pulse Ox 08/23/21 07:21 78 28 H 08/23/21 07:00 80 25 H 144/67 H 92 08/23/21 06:12 163/92 H 08/23/21 06:00 73 22 163/92 H 94 08/23/21 05:55 93 24 08/23/21 05:30 72 22 164/87 H 91 L 08/23/21 05:00 73 18 173/93 H 91 L Intake & Output: Intake & Output 08/20/21 08/21/21 08/22/21 08/23/21 23:59 23:59 23:59 23:59 Intake Total 4447.000 2100 251 Output Total 100 Balance 4347.000 2100 251 - Objective General Appearance: positive: No acute distress, Lethargic (Says full sentences but with slow slurred speech) Eyes Bilateral: positive: Normal inspection ENT: positive: Dry mucous membranes Neck: positive: Nml inspection Respiratory: positive: No respiratory distress, Breath sounds nml Cardiovascular: positive: Regular rate & rhythm, No murmur Abdomen: positive: Other (Distended, non-tender, bowel sounds present) Skin: positive: Warm, Dry Extremities: positive: Non-tender, No pedal edema Neurologic/Psychiatric: positive: Slurred/abnml speech, Other (Lethargic, awakens to name, is able to answer in sentences. Is oriented x0. Moves all extremities spontaneously) - Lab Results Fish Bones: 08/23/21 04:01 08/23/21 04:01 Other Labs: Lab Results x24hrs 08/23/21 08/23/21 08/23/21 Range/Units 04:01 04:01 04:01 WBC 19.5 H (4.8-10.8) x10^3/uL RBC 3.96 L (4.70-6.10) 10^6/uL Hgb 12.5 L (14.0-18.0) g/dL Hct 39.6 L (42.0-52.0) % MCV 100.0 H (80.0-94.0) fL MCH 31.6 H (27.0-31.0) pg MCHC 31.6 L (32.0-36.0) g/dL RDW 12.8 (12.0-15.0) % Plt Count 339 (130-450) 10^3/uL MPV 9.6 (7.4-11.4) fL Neut # (Auto) Not Reportable Lymph # (Auto) Not Reportable [place] # (Auto) Not Reportable Eos # (Auto) Not Reportable Baso # (Auto) Not Reportable Absolute Nucleated RBC Not Reportable Total Counted 100 Band Neuts % (Manual) 0 (0 - 10) % Abnorm Lymph % (Manual) 0 % Nucleated RBC % Not Reportable Neutrophils # (Manual) 15.8 H (1.5-6.6) 10^3/uL Lymphocytes # (Manual) 1.2 L (1.5-3.5) 10^3/uL Monocytes # (Manual) 2.5 H (0.0-1.0) 10^3/uL Eosinophils # (Manual) 0.0 (0-0.7) 10^3/uL Basophils # (Manual) 0.0 (0-0.1) 10^3/uL Differential Comment MANUAL DIFFERENTIAL WBC Morphology NORMAL APPEARANCE (NORMAL) Platelet Estimate NORMAL (130-450,000) (NORMAL) Platelet Morphology NORMAL APPEARANCE (NORMAL) RBC Morph Micro Appear NORMAL APPEARANCE (NORMAL) Bld Gas Analysis Time Sample Site ABG pH (7.35-7.45) ABG pCO2 (34-45) mmHg ABG pO2 (80-100) mmHg ABG HCO3 (22.0-26.0) mmol/L ABG Total CO2 (21.0-29.0) MMOL/L ABG O2 Saturation (94-98) % ABG Base Excess (-2.0-3.0) mmol/L Ganga Test O2 Delivery Device FiO2 EPAP cmH2O IPAP cmH2O Sodium 140 (135-145) mmol/L Potassium 3.8 (3.5-5.0) mmol/L Chloride 95 L (101-111) mmol/L Carbon Dioxide 37 H (21-32) mmol/L Anion Gap 8.0 (6-13) BUN 31 H (6-20) mg/dL Creatinine 0.8 (0.6-1.2) mg/dL Estimated GFR (MDRD) 96 (>89) Glucose 109 H (70-100) mg/dL Calcium 8.4 L (8.5-10.3) mg/dL Phosphorus 2.3 L (2.5-4.6) mg/dL Magnesium 2.9 H (1.7-2.8) mg/dL 08/22/21 Range/Units 08:45 WBC (4.8-10.8) x10^3/uL RBC (4.70-6.10) 10^6/uL Hgb (14.0-18.0) g/dL Hct (42.0-52.0) % MCV (80.0-94.0) fL MCH (27.0-31.0) pg MCHC (32.0-36.0) g/dL RDW (12.0-15.0) % Plt Count (130-450) 10^3/uL MPV (7.4-11.4) fL Neut # (Auto) Lymph # (Auto) [place] # (Auto) Eos # (Auto) Baso # (Auto) Absolute Nucleated RBC Total Counted Band Neuts % (Manual) (0 - 10) % Abnorm Lymph % (Manual) % Nucleated RBC % Neutrophils # (Manual) (1.5-6.6) 10^3/uL Lymphocytes # (Manual) (1.5-3.5) 10^3/uL Monocytes # (Manual) (0.0-1.0) 10^3/uL Eosinophils # (Manual) (0-0.7) 10^3/uL Basophils # (Manual) (0-0.1) 10^3/uL Differential Comment WBC Morphology (NORMAL) Platelet Estimate (NORMAL) Platelet Morphology (NORMAL) RBC Morph Micro Appear (NORMAL) Bld Gas Analysis Time 0845 Sample Site LEFT RADIAL ABG pH 7.37 (7.35-7.45) ABG pCO2 64 H* (34-45) mmHg ABG pO2 61 L (80-100) mmHg ABG HCO3 36.3 H (22.0-26.0) mmol/L ABG Total CO2 38.2 H (21.0-29.0) MMOL/L ABG O2 Saturation 92 L (94-98) % ABG Base Excess 8.7 H (-2.0-3.0) mmol/L Ganga Test POSITIVE O2 Delivery Device BiPAP FiO2 30.00 EPAP 5 cmH2O IPAP 16 cmH2O Sodium (135-145) mmol/L Potassium (3.5-5.0) mmol/L Chloride (101-111) mmol/L Carbon Dioxide (21-32) mmol/L Anion Gap (6-13) BUN (6-20) mg/dL Creatinine (0.6-1.2) mg/dL Estimated GFR (MDRD) (>89) Glucose (70-100) mg/dL Calcium (8.5-10.3) mg/dL Phosphorus (2.5-4.6) mg/dL Magnesium (1.7-2.8) mg/dL Sepsis Event Note (H) - Evaluation Current Stage of Sepsis: Sepsis Possible source of Sepsis: positive: Pulmonary - Sepsis Criteria Sepsis Criteria: Recorded Heart Rate greater than 90 bpm, Recorded Respiratory Rate greater than 20, Respiratory: Increasing oxygen requirements, WBC count greater than 12,000 or less than 4000 Assessment/Plan - Problem List (1) Encephalopathy Impression: He is still quite confused and somnolent and we suspect this is likely multifactorial. Initial thought was this may be related to alcohol withdrawal but now suspect may have benzodiazepine delirium from the Ativan he had been receiving. He was hypercapnic but his most recent ABG did not reveal a significant acidosis or an elevated carbon dioxide that would cause this encephalopathy. He was started on cefepime 3 days ago, which can have some neurotoxicity but this once again thought to be less likely at this time. The high-dose Solu-Medrol may have also been contributing to confusion, so we decreased it from t.i.d. to b.i.d. He got a CT of the head yesterday, for further evaluation and the CT head showed no acute findings. An ammonia level was checked and this was within normal limits. We will limit the use of Ativan. We will recheck another ABG if necessary. (2) Acute on chronic respiratory failure with hypoxia and hypercapnia Impression: This is secondary to COPD exacerbation, the pneumonia and as well as likely the encephalopathy. He was started on BiPAP 2 days ago, with improvement in his ABG. He is most definitely a chronic CO2 retainer. We will continue to manage his COPD as mentioned below with steroids, antibiotics, nebulizers. Continue the patient on BiPAP. We will limit the use of the Ativan this was likely contributing to his encephalopathy. He is a DNR but was agreeable to mechanical ventilation and if necessary we will intubate him. (3) Sepsis Impression: This is secondary to community-acquired pneumonia. He was switched from Ceftriaxone to cefepime, when there was concern for potential Pseudomonas infection given his ongoing dyspnea and rising white blood cell count. His white blood cell count has improved slightly today. He is already completed 3 days of azithromycin. We will keep him on cefepime with today being day 3. We will treat for at least 5 days. (4) COPD exacerbation Impression: This is contributing to his respiratory failure. Althoug he needs BIPAP, he does appear more comfortable from a dyspnea standpoint. We will continue with Solu-Medrol iv, which was decreased to 40 mg b.i.d. because of delerium, given he has less wheezing on exam. We will continue with the cefepime for the community-acquired pneumonia. Continue duo nebs schediled every 4 hrs, and albuterol as needed. We will continue with BiPAP. (5) Community acquired pneumonia Impression: This is the cause of his sepsis. We will keep him on empiric iv Cefepime for Pseudomonas coverage. Today is day 3 of the cefepime, changed from Ceftriaxone and he has already completed 3 days of azithromycin. We will treat with Cefepime for at least 5 days. (6) Atrial fibrillation Impression: He had paroxysmal Afib shortly after admission, now remains in sinus rhythm. He is on IV Lopressor scheduled until he can take p.o. We are holding Eliquis but this can be resumed once his mentation improves and if his CHADS score necessitates it. An Echocardiogram has been ordered and we are hoping to obtain this today (today is Tu, as the Mechanical Adjuster is here only , Wed, Th). Continue to monitor on telemetry. Qualifiers: Atrial fibrillation type: paroxysmal Qualified Code(s): I48.0 - Paroxysmal atrial fibrillation (7) Alcohol abuse Impression: Initial concern was for alcohol withdrawal but rather we suspect that he has benzodiazepine-induced delirium at this time. We will continue with thiamine IV daily. We will limit the use of Ativan.
[2021-08-23] MEDS: CEFEPIME 2 GM in SODIUM CHLORIDE 0.9% MINIBAG 100 ML IV SCH ×2 (08:36→20:31)
[2021-08-23] MEDS ORDERED: POTASSIUM PHOSPHATE 15 MMOL in SODIUM CHLORIDE 0.9% 250 ML IV ONE (09:00)
[2021-08-23] MEDS: methylPREDNISolone SUCCINATE 40 MG/ML VIAL IVP SCH ×2 (09:17→20:30)
[2021-08-23] MEDS: THIAMINE IV SCH (09:17)
[2021-08-23] MEDS: SODIUM CHLORIDE 0.9% IV SCH (09:17)
[2021-08-23] MEDS: CHOLECALCIFEROL 25 MCG TABLET PO SCH (09:22)
[2021-08-23] MEDS: ENOXAPARIN 40 MG/0.4 ML SYRINGE SUBQ SCH (09:23)
[2021-08-23] MEDS: FUROSEMIDE 20 MG TABLET PO SCH (09:24)
[2021-08-23] MEDS: guaiFENesin 600 MG TABLET PO SCH ×2 (09:24→20:31)
[2021-08-23] MEDS: lisinopriL 5 MG TABLET PO SCH (09:25)
[2021-08-23] MEDS: INSULIN ASPART 300 UNIT/3 ML PEN SUBQ SCH (20:32)
[2021-08-23] MEDS: BENZONATATE 100 MG CAPSULE PO PRN (22:22)
[2021-08-24] MEDS: IPRATROPIUM/ALBUTEROL 3 ML NEB INH SCH ×6 (05:59→20:45)
[2021-08-24] MEDS: METOPROLOL 5 MG/5 ML VIAL IVP SCH ×2 (06:14→12:53)
[2021-08-24 09:22] LABS: BASOPHILS # (AUTO) 0.1 10^3/uL (0.0-0.1); BASOPHILS % (AUTO) 0.4 %; EOSINOPHILS # (AUTO) 0.1 10^3/uL (0.0-0.7); EOSINOPHILS % (AUTO) 0.3 %; HCT - HEMATOCRIT 45.7 % (42.0-52.0); HGB - HEMOGLOBIN 15.3 g/dL (14.0-18.0); LYMPHOCYTES # (AUTO) 1.7 10^3/uL (1.5-3.5); LYMPHOCYTES % (AUTO) 7.7 %; MEAN CORPUSCULAR HEMOGLOBIN 32.2 pg (27.0-31.0); MEAN CORPUSCULAR HGB CONC 33.5 g/dL (32.0-36.0); MEAN CORPUSCULAR VOLUME 96.2 fL (80.0-94.0); MEAN PLATELET VOLUME 9.4 fL (7.4-11.4); MONOCYTES # (AUTO) 1.5 10^3/uL (0.0-1.0); MONOCYTES % (AUTO) 6.7 %; NEUTROPHILS # (AUTO) 18.2 10^3/uL (1.5-6.6); PLT - PLATELET COUNT 379 10^3/uL (130-450); RED BLOOD COUNT 4.75 10^6/uL (4.70-6.10); RED CELL DISTRIBUTION WIDTH 12.7 % (12.0-15.0); WHITE BLOOD COUNT 22.7 x10^3/uL (4.8-10.8)
[2021-08-24 09:25] LABS: SLIDE REVIEW? Indicated
[2021-08-24 09:26] LABS: CALCIUM 9.3 mg/dL (8.5-10.3); CREATININE 0.8 mg/dL (0.6-1.2); MAGNESIUM 2.5 mg/dL (1.7-2.8)
[2021-08-24] MEDS: SODIUM CHLORIDE FLUSH 0.9% 10 ML SYRINGE IVP SCH ×2 (09:30→17:23)
[2021-08-24] MEDS: SODIUM CHLORIDE 0.9% IV SCH (09:31)
[2021-08-24] MEDS: THIAMINE IV SCH (09:31)
[2021-08-24] MEDS: INSULIN ASPART 300 UNIT/3 ML PEN SUBQ SCH (10:17)
[2021-08-24] MEDS: guaiFENesin 600 MG TABLET PO SCH ×2 (10:18→20:51)
[2021-08-24] MEDS: FUROSEMIDE 20 MG TABLET PO SCH (10:18)
[2021-08-24] MEDS: lisinopriL 5 MG TABLET PO SCH (10:18)
[2021-08-24] MEDS: CHOLECALCIFEROL 25 MCG TABLET PO SCH (10:18)
[2021-08-24] MEDS: ENOXAPARIN 40 MG/0.4 ML SYRINGE SUBQ SCH (10:18)
[2021-08-24] MEDS: methylPREDNISolone SUCCINATE 40 MG/ML VIAL IVP SCH ×2 (10:19→20:51)
[2021-08-24 10:42] LABS: PLATELET ESTIMATE, MANUAL NORMAL (130-450,000) (NORMAL); PLATELET MORPHOLOGY NORMAL APPEARANCE (NORMAL); RBC MORPHOLOGY (MULTIPLE) NORMAL APPEARANCE (NORMAL)
[2021-08-24 10:43] LABS: DIFFERENTIAL COMMENT MANUAL=AUTO DIFF; WBC MORPHOLOGY (MULTIPLE) NORMAL APPEARANCE (NORMAL)
[2021-08-24] MEDS: CEFEPIME 2 GM in SODIUM CHLORIDE 0.9% MINIBAG 100 ML IV SCH ×2 (11:00→20:50)
--- NOTE | 2021-08-24 12:18 | PROVIDER PROGRESS NOTE ---
Subjective - Prog Note Date Prog Note Date: 08/24/21 - Subjective Pt reports feeling: Improved (He is able to swallow meals. He is still sleepy but awakens and has a npormal conversation, eyes remain closed however.) Objective - Vital Signs/Intake & Output Reviewed Vital Signs: Yes Vital Signs: Vital Signs Temp Pulse Pulse Resp BP Pulse Ox 08/24/21 11:00 92 28 H 143/73 H 97 08/24/21 10:27 94 16 08/24/21 09:52 36.5 C 92 27 H 139/97 H 96 08/24/21 09:00 36.5 C 91 25 H 140/68 H 97 Intake & Output: Intake & Output 08/21/21 08/22/21 08/23/21 08/24/21 23:59 23:59 23:59 23:59 Intake Total 2100 251 801 300 Output Total 500 400 Balance 2100 251 301 -100 - Objective General Appearance: positive: No acute distress, Lethargic (Awakens, answers in complete sentences his eyes quickly. He is not oriented to place or time, though he was in a hospital in [place], then corrected it to "hospital on [facility]".) Eyes Bilateral: positive: Normal inspection Neck: positive: Nml inspection, No JVD Respiratory: positive: No respiratory distress (with O2 per n.c. on. Distant breath sounds, no wheezing or rales anteriorly.) Cardiovascular: positive: Regular rate & rhythm, No murmur Abdomen: positive: Non-tender, Nml bowel sounds, No distention Skin: positive: Warm, Dry Extremities: positive: Non-tender, No pedal edema - Lab Results Fish Bones: 08/24/21 09:06 08/24/21 09:06 Other Labs: Lab Results x24hrs 08/24/21 08/24/21 08/24/21 Range/Units 09:06 09:06 09:06 WBC 22.7 H (4.8-10.8) x10^3/uL RBC 4.75 (4.70-6.10) 10^6/uL Hgb 15.3 (14.0-18.0) g/dL Hct 45.7 (42.0-52.0) % MCV 96.2 H (80.0-94.0) fL MCH 32.2 H (27.0-31.0) pg MCHC 33.5 (32.0-36.0) g/dL RDW 12.7 (12.0-15.0) % Plt Count 379 (130-450) 10^3/uL MPV 9.4 (7.4-11.4) fL Neut # (Auto) 18.2 H (1.5-6.6) 10^3/uL Lymph # (Auto) 1.7 (1.5-3.5) 10^3/uL [place] # (Auto) 1.5 H (0.0-1.0) 10^3/uL Eos # (Auto) 0.1 (0.0-0.7) 10^3/uL Baso # (Auto) 0.1 (0.0-0.1) 10^3/uL Absolute Nucleated RBC 0.00 x10^3/uL Band Neuts % (Manual) Not Reportable Abnorm Lymph % (Manual) Not Reportable Nucleated RBC % 0.0 /100WBC Neutrophils # (Manual) Not Reportable Lymphocytes # (Manual) Not Reportable Monocytes # (Manual) Not Reportable Eosinophils # (Manual) Not Reportable Basophils # (Manual) Not Reportable Differential Comment MANUAL=AUTO DIFF Manual Slide Review Indicated WBC Morphology NORMAL APPEARANCE (NORMAL) Platelet Estimate NORMAL (130-450,000) (NORMAL) Platelet Morphology NORMAL APPEARANCE (NORMAL) RBC Morph Micro Appear NORMAL APPEARANCE (NORMAL) Sodium 141 (135-145) mmol/L Potassium 4.0 (3.5-5.0) mmol/L Chloride 92 L (101-111) mmol/L Carbon Dioxide 40 H* (21-32) mmol/L Anion Gap 9.0 (6-13) BUN 25 H (6-20) mg/dL Creatinine 0.8 (0.6-1.2) mg/dL Estimated GFR (MDRD) 96 (>89) Glucose 136 H (70-100) mg/dL Calcium 9.3 (8.5-10.3) mg/dL Phosphorus (2.5-4.6) mg/dL Magnesium 2.5 (1.7-2.8) mg/dL Ammonia 15.8 (7-35) umol/L 08/23/21 08/23/21 Range/Units 17:26 17:26 WBC (4.8-10.8) x10^3/uL RBC (4.70-6.10) 10^6/uL Hgb (14.0-18.0) g/dL Hct (42.0-52.0) % MCV (80.0-94.0) fL MCH (27.0-31.0) pg MCHC (32.0-36.0) g/dL RDW (12.0-15.0) % Plt Count (130-450) 10^3/uL MPV (7.4-11.4) fL Neut # (Auto) (1.5-6.6) 10^3/uL Lymph # (Auto) (1.5-3.5) 10^3/uL [place] # (Auto) (0.0-1.0) 10^3/uL Eos # (Auto) (0.0-0.7) 10^3/uL Baso # (Auto) (0.0-0.1) 10^3/uL Absolute Nucleated RBC x10^3/uL Band Neuts % (Manual) Abnorm Lymph % (Manual) Nucleated RBC % /100WBC Neutrophils # (Manual) Lymphocytes # (Manual) Monocytes # (Manual) Eosinophils # (Manual) Basophils # (Manual) Differential Comment Manual Slide Review WBC Morphology (NORMAL) Platelet Estimate (NORMAL) Platelet Morphology (NORMAL) RBC Morph Micro Appear (NORMAL) Sodium (135-145) mmol/L Potassium 4.1 (3.5-5.0) mmol/L Chloride (101-111) mmol/L Carbon Dioxide (21-32) mmol/L Anion Gap (6-13) BUN (6-20) mg/dL Creatinine (0.6-1.2) mg/dL Estimated GFR (MDRD) (>89) Glucose (70-100) mg/dL Calcium (8.5-10.3) mg/dL Phosphorus 3.4 (2.5-4.6) mg/dL Magnesium (1.7-2.8) mg/dL Ammonia (7-35) umol/L Sepsis Event Note (H) - Evaluation Current Stage of Sepsis: Sepsis Possible source of Sepsis: positive: Pulmonary - Sepsis Criteria Sepsis Criteria: Recorded Heart Rate greater than 90 bpm, Recorded Respiratory Rate greater than 20, Respiratory: Increasing oxygen requirements, WBC count greater than 12,000 or less than 4000 Assessment/Plan - Problem List (1) Encephalopathy Impression: He is still quite confused and somnolent and we suspect this is likely multifactorial. Initial thought was this may be related to alcohol withdrawal but now suspect may have prolonged affect of the benzodiazepine he had been receiving. He was hypercapnic but his most recent ABG did not reveal a significant acidosis or an elevated carbon dioxide that would cause this encephalopathy. He was started on cefepime 3 days ago, which can have some neurotoxicity but this once again thought to be less likely at this time, since he is improving despite cefepime. The high-dose Solu-Medrol may have also been contributing to confusion, so we decreased it from t.i.d. to b.i.d. He got a CT of the head, for further evaluation and the CT head showed no acute findings. An ammonia level was checked and this was within normal limits. We will limit the use of Ativan, sleeping meds or narcotics We will recheck another ABG if necessary. Will get him OOB today Will advance diet from pureed to soft mechanical (2) Acute on chronic respiratory failure with hypoxia and hypercapnia Impression: This is secondary to COPD exacerbation, the pneumonia and as well as likely the encephalopathy. He was started on BiPAP, with improvement in his ABG. He is most definitely a chronic CO2 retainer. He is a DNR but was agreeable to mechanical ventilation and if necessary we could intubate him. We will continue to manage his COPD as mentioned below with steroids, ant ibiotics, nebulizers. Continue the patient on BiPAP in the ICU, weaning it down as tolerated We will limit the use of the Ativan this was likely contributing to his encephalopathy. (3) COPD exacerbation Impression: This is contributing to his respiratory failure. Althoug he needs BIPAP, he does appear more comfortable from a dyspnea standpoint. We started with Solu-Medrol iv, which was decreased from t.i.d. to 40 mg b.i.d. because of delirium, given he had less wheezing on exam. We will continue with the cefepime for the community-acquired pneumonia. Continue duo nebs schediled every 4 hrs, and albuterol as needed. We will continue with BiPAP weaning to off when possible, keeping sats >88% (4) Community acquired pneumonia Impression: This is the cause of his sepsis. We will keep him on empiric iv Cefepime for Pseudomonas coverage. Today is day 4 of the cefepime, changed from Ceftriaxone and he has already completed 3 days of azithromycin. We will continue Cefepime, with today being day 4. We will treat for at least 5 days. (5) Atrial fibrillation Impression: He had paroxysmal Afib shortly after admission, now remains in sinus rhythm. An Echocardiogram was done yesterday and showed normal LV function. He is on IV Lopressor scheduled and will change this to p.o. today He was started on Eliquis, then Eliquis was put on hold when he was too lethargic to swallow. His CHADS score = 1 (HTN), so he will not need Eliquis, but a baby aspirin daily. Continue to monitor on telemetry. Qualifiers: Atrial fibrillation type: paroxysmal Qualified Code(s): I48.0 - Paroxysmal atrial fibrillation (6) Alcohol abuse Impression: Initial concern was for alcohol withdrawal but rather we suspect that he has benzodiazepine-induced delirium at this time. We will continue with thiamine IV >> po daily. We will limit the use of Ativan. (7) Sepsis Impression: Resolved. This was secondary to community-acquired pneumonia. He was switched from Ceftriaxone to cefepime, when there was concern for potential Pseudomonas infection given his ongoing dyspnea and rising white blood cell count. His white blood cell count has improved slightly today. He is already completed 3 days of azithromycin. We will keep him on cefepime with today being day 4. We will treat for at least 5 days.
[2021-08-24] MEDS: SODIUM CHLORIDE FLUSH 0.9% 10 ML SYRINGE IVP PRN ×2 (12:55→20:51)
[2021-08-24] MEDS ORDERED: guaiFENesin 600 MG TABLET PO SCH (13:00)
[2021-08-24] MEDS: ALBUTEROL NEB 2.5 MG/3 ML INH PRN (14:41)
[2021-08-24] MEDS: ASPIRIN EC 81 MG TABLET PO SCH (17:23)
[2021-08-24] MEDS: ACETAMINOPHEN 325 MG TABLET PO PRN (20:51)
[2021-08-24] MEDS: BENZONATATE 100 MG CAPSULE PO PRN (20:51)
[2021-08-24] MEDS: traZODone 50 MG TABLET PO PRN (22:23)
[2021-08-25] MEDS: SODIUM CHLORIDE FLUSH 0.9% 10 ML SYRINGE IVP SCH ×3 (00:22→17:03)
[2021-08-25 05:31] LABS: BASOPHILS % (AUTO) 0.3 %; EOSINOPHILS % (AUTO) 0.1 %; HCT - HEMATOCRIT 44.4 % (42.0-52.0); HGB - HEMOGLOBIN 14.4 g/dL (14.0-18.0); LYMPHOCYTES % (AUTO) 5.6 %; MEAN CORPUSCULAR HEMOGLOBIN 31.2 pg (27.0-31.0); MEAN CORPUSCULAR HGB CONC 32.4 g/dL (32.0-36.0); MEAN CORPUSCULAR VOLUME 96.1 fL (80.0-94.0); MEAN PLATELET VOLUME 9.9 fL (7.4-11.4); MONOCYTES % (AUTO) 6.1 %; NEUTROPHILS % (AUTO) 81.8 %; PLT - PLATELET COUNT 372 10^3/uL (130-450); RED BLOOD COUNT 4.62 10^6/uL (4.70-6.10); WHITE BLOOD COUNT 22.7 x10^3/uL (4.8-10.8)
[2021-08-25 05:45] LABS: BAND NEUTROPHILS % (MANUAL) 0 %
[2021-08-25 05:55] LABS: CALCIUM 9.2 mg/dL (8.5-10.3); CREATININE 0.8 mg/dL (0.6-1.2); POTASSIUM 4.3 mmol/L (3.5-5.0)
[2021-08-25 05:57] LABS: ABNORMAL LYMPHS % (MANUAL) 1 %; LYMPHOCYTES # (MANUAL) 1.6 10^3/uL (1.5-3.5); LYMPHOCYTES % (MANUAL) 6 %; MONOCYTES # (MANUAL) 1.4 10^3/uL (0.0-1.0); MYELOCYTES % (MANUAL) 1 %; NEUTROPHILS # (MANUAL) 19.5 10^3/uL (1.5-6.6)
[2021-08-25 05:58] LABS: DIFFERENTIAL COMMENT MANUAL DIFFERENTIAL; PLATELET ESTIMATE, MANUAL NORMAL (130-450,000) (NORMAL); PLATELET MORPHOLOGY NORMAL APPEARANCE (NORMAL); RBC MORPHOLOGY (MULTIPLE) NORMAL APPEARANCE (NORMAL); WBC MORPHOLOGY (MULTIPLE) NORMAL APPEARANCE (NORMAL)
[2021-08-25 06:21] LABS: MAGNESIUM 2.5 mg/dL (1.7-2.8); PHOSPHORUS 5.3 mg/dL (2.5-4.6)
[2021-08-25] MEDS: IPRATROPIUM/ALBUTEROL 3 ML NEB INH SCH ×5 (06:26→21:28)
[2021-08-25] MEDS: predniSONE 20 MG TABLET PO SCH (09:06)
[2021-08-25] MEDS: ASPIRIN EC 81 MG TABLET PO SCH (09:07)
[2021-08-25] MEDS: CEFEPIME 2 GM in SODIUM CHLORIDE 0.9% MINIBAG 100 ML IV SCH ×2 (09:07→21:02)
[2021-08-25] MEDS: THIAMINE 100 MG TABLET PO SCH (09:08)
[2021-08-25] MEDS: CHOLECALCIFEROL 25 MCG TABLET PO SCH (09:08)
[2021-08-25] MEDS: guaiFENesin 600 MG TABLET PO SCH ×2 (09:09→21:01)
[2021-08-25] MEDS: FUROSEMIDE 20 MG TABLET PO SCH (09:09)
[2021-08-25] MEDS: ENOXAPARIN 40 MG/0.4 ML SYRINGE SUBQ SCH (09:09)
[2021-08-25] MEDS: METOPROLOL SUCCINATE 25 MG TABLET PO SCH (09:10)
[2021-08-25] MEDS: BENZONATATE 100 MG CAPSULE PO PRN (09:10)
--- NOTE | 2021-08-25 14:17 | PROVIDER PROGRESS NOTE ---
Assessment/Plan - Problem List (1) Encephalopathy Assessment/Plan: He presented oriented then became somnolent and confused. He is still somnolent and slightly confused (thinks he is in a hospital in [place]). We suspected this is likely multifactorial. Initial thought was this may be related to alcohol wi thdrawal but then felt he may have prolonged affect of the benzodiazepine he received. He is not hypercapnic or hypoxic. He was started on cefepime several days ago, which can have some neurotoxicity but this once again thought to be less likely at this time, since he is improving slightly despite continuing on cefepime. The high-dose Solu-Medrol may have also been contributing to confusion, so we decreased it and now have changed it to oral Prednisone. He got a CT of the head, for further evaluation and the CT head showed no acute findings. An ammonia level was checked and this was within normal limits. He was slightly hypotensive, therefore I will stop the Lisinopril We will limit the use of Ativan, or narcotics Will decrease his home med dose of Trazadone for sleep, as it is possibly compounding Will transfer him out of ICU. Will order OOB to chair for all meals and PT and OT to start working with him today (2) Acute on chronic respiratory failure with hypoxia and hypercapnia Impression: This is secondary to COPD exacerbation, the pneumonia and as well as likely the encephalopathy. He was started on BiPAP, with improvement in his ABG. He is most definitely a chronic CO2 retainer. We will continue to manage his COPD as mentioned below with steroids, antibiotics, nebulizers. Continue the patient on suppl O2; he is on 2L O2 at home (3) COPD exacerbation Impression: This is contributing to his respiratory failure. He does appear more comfortable from a dyspnea standpoint. We started with Solu-Medrol iv, which was decreased from t.i.d. to 40 mg b.i.d. because of delirium, and changed to Prednisone 20 mg po daily today. We will continue with the cefepime for the community-acquired pneumonia and give empirically for 7 days. Continue duo nebs scheduled every 4 hrs, and albuterol as needed. Continue the patient on suppl O2; he is on 2L O2 at home, keeping sats >88% (4) Community acquired pneumonia Impression: This was the cause of his sepsis. We will keep him on empiric iv Cefepime for Pseudomonas coverage. Today is day 5 of the cefepime, changed from Ceftriaxone and he has already completed 3 days of azithromycin. We will continue Cefepime, with today being day 4. We will treat for 7 days. Stop date ordered (5) Atrial fibrillation Impression: He had paroxysmal Afib shortly after admission, now remains in sinus rhythm. An Echocardiogram was done and showed normal LV function. He is on po Lopressor now He was started on Eliquis, then Eliquis was put on hold when he was too let hargic to swallow. His CHADS score = 1 (HTN), so he will not need Eliquis, but a baby aspirin daily hgas been ordered. Continue to monitor on telemetry. Qualifiers: Atrial fibrillation type: paroxysmal Qualified Code(s): I48.0 - Paroxysmal atrial fibrillation (6) Alcohol abuse Impression: He nhas gynecomastia, likely from alcohol abuse and liver disease. Initial concern was for alcohol withdrawal but rather we suspect that he had benzodiazepine-induced delirium. We will continue with thiamine po daily. We will limit the use of Ativan. (7) Sepsis Impression: Resolved. This was secondary to community-acquired pneumonia. He was switched from Ceftriaxone to cefepime, when there was concern for potenti al Pseudomonas infection given his ongoing dyspnea and rising white blood cell count. His white blood cell count has improved slightly today. He is already completed 3 days of azithromycin. We will keep him on cefepime with today being day 5. We will treat for 7 days. Stop date ordered. - Current Meds Current Meds: Current Medications Generic Name Dose Route Start Last Admin Trade Name Freq PRN Reason Stop Dose Admin Acetaminophen 650 mg 08/18/21 13:33 08/24/21 20:51 Acetaminophen 325 Mg Tablet PO 650 mg Q4HR PRN Administration Pain 1 to 4, or Fever Albuterol 2.5 mg 08/18/21 13:38 08/24/21 14:41 Albuterol Neb 2.5 Mg/3 Ml INH 2.5 mg RTQ4H PRN Administration Wheezing Albuterol/Ipratropium 3 ml 08/25/21 11:00 08/25/21 11:37 Ipratropium/Albuterol 3 Ml Neb INH 3 ml RTQID ELISABET Administration Aspirin 81 mg 08/24/21 15:00 08/25/21 09:07 Aspirin Ec 81 Mg Tablet PO 81 mg DAILY ELISABET Administration Benzonatate 100 mg 08/18/21 13:56 08/25/21 09:10 Benzonatate 100 Mg Capsule PO 100 mg TID PRN Administration Cough Cetirizine HCl 10 mg 08/19/21 07:47 08/19/21 09:09 Cetirizine 10 Mg Tablet PO 10 mg DAILY PRN Administration Allergy Symptoms Cholecalciferol 25 mcg 08/19/21 09:00 08/25/21 09:08 Cholecalciferol 25 Mcg Tablet PO 25 mcg DAILY ELISABET Administration Enoxaparin Sodium 40 mg 08/22/21 10:30 08/25/21 09:09 Enoxaparin 40 Mg/0.4 Ml Syringe SUBQ 40 mg DAILY ELISABET Administration Furosemide 20 mg 08/19/21 09:00 08/25/21 09:09 Furosemide 20 Mg Tablet PO 20 mg DAILY ELISABET Administration Guaifenesin 600 mg 08/18/21 21:00 08/25/21 09:09 Guaifenesin 600 Mg Tablet PO 600 mg BID ELISABET Administration Cefepime HCl 2 gm/ Sodium 100 mls @ 200 mls/hr 08/21/21 09:00 08/25/21 09:40 Chloride IV Infused BID ELISABET Infusion Lisinopril 5 mg 08/19/21 09:00 08/24/21 10:18 Lisinopril 5 Mg Tablet PO 5 mg DAILY ELISABET Administration Metoprolol Succinate 25 mg 08/25/21 09:00 08/25/21 09:10 Metoprolol Succinate 25 Mg Tablet PO 25 mg DAILY ELISABET Administration Prednisone 20 mg 08/25/21 08:00 08/25/21 09:06 Prednisone 20 Mg Tablet PO 20 mg DAILYWM ELISABET Administration Sodium Chloride 10 ml 08/18/21 13:19 08/24/21 20:51 Sodium Chloride Flush 0.9% 10 Ml Syringe IVP 10 ml PRN PRN Administration NEEDED PER PROVIDER ORDERS Sodium Chloride 10 ml 08/18/21 17:00 08/25/21 09:10 Sodium Chloride Flush 0.9% 10 Ml Syringe IVP 10 ml 0100,0900,1700 ELISABET Administration Thiamine HCl 100 mg 08/25/21 09:00 08/25/21 09:08 Thiamine 100 Mg Tablet PO 100 mg DAILY ELISABET Administration Trazodone HCl 50 mg 08/18/21 23:31 08/24/21 22:23 Trazodone 50 Mg Tablet PO 50 mg QPM PRN Administration Insomnia - Lab Result Fish Bone Diagrams: 08/25/21 04:17 08/25/21 04:17 - Additional Planning My Orders: My Active Orders 08/24/21 15:00 Aspirin EC [Ecotrin] 81 mg PO DAILY 08/24/21 Dinner DIET [Soft Mechanical Diet] [DIET] 08/25/21 Evaluate and Treat OT [OT] Routine Evaluate and Treat PT [PT] Routine 08/25/21 08:00 predniSONE [Deltasone] 20 mg PO DAILYWM 08/25/21 08:24 Transfer [Admit \ Transfer \ Status] [RC] .ONCE 08/25/21 08:25 Telemetry- [RC] Q4HR 08/25/21 09:00 Metoprolol Succinate [Toprol Xl] 25 mg PO DAILY Thiamine [Vitamin B-1] 100 mg PO DAILY 08/25/21 11:00 Ipratropium/Albuterol [Duoneb] 3 ml INH RTQID 08/26/21 05:00 BMP - BASIC METABOLIC PANEL [CHEM] DAILYLAB CBC - COMP BLD CT W/AUTO DIFF [HEME] DAILYLAB 08/27/21 05:00 BMP - BASIC METABOLIC PANEL [CHEM] DAILYLAB CBC - COMP BLD CT W/AUTO DIFF [HEME] DAILYLAB 08/28/21 05:00 BMP - BASIC METABOLIC PANEL [CHEM] DAILYLAB CBC - COMP BLD CT W/AUTO DIFF [HEME] DAILYLAB Subjective - Subjective Patient Reports: Fatigue (Asleep, arouses to name, is oriented to self and time, not place.) Objective Vital Signs: Vital Signs - 24 hr 08/24/21 08/24/21 08/24/21 14:41 16:29 17:00 Temperature Heart Rate 94 94 Heart Rate [ Activity] Heart Rate [ 100 Monitoring electrodes] Heart Rate [ Supine] Respiratory 14 26 H 24 Rate Blood Pressure [Activity] Blood Pressure 114/89 H [Right Brachial artery] Blood Pressure [Supine] O2 Saturation 96 93 08/24/21 08/24/21 08/24/21 17:43 20:18 20:46 Temperature 37.2 C Heart Rate 100 94 Heart Rate [ Activity] Heart Rate [ Monitoring electrodes] Heart Rate [ Supine] Respiratory 16 18 Rate Blood Pressure [Activity] Blood Pressure [Right Brachial artery] Blood Pressure [Supine] O2 Saturation 08/24/21 08/25/21 08/25/21 21:00 01:00 07:28 Temperature Heart Rate 89 Heart Rate [ Activity] Heart Rate [ 100 86 Monitoring electrodes] Heart Rate [ Supine] Respiratory 25 H 18 21 Rate Blood Pressure [Activity] Blood Pressure 117/78 131/82 H [Right Brachial artery] Blood Pressure [Supine] O2 Saturation 94 93 08/25/21 08/25/21 08/25/21 07:50 08:38 10:32 Temperature 36.5 C Heart Rate Heart Rate [ Activity] Heart Rate [ 92 104 H 90 Monitoring electrodes] Heart Rate [ Supine] Respiratory 22 24 20 Rate Blood Pressure [Activity] Blood Pressure 102/65 108/59 L 91/43 L [Right Brachial artery] Blood Pressure [Supine] O2 Saturation 95 93 95 08/25/21 08/25/21 08/25/21 11:10 11:38 12:11 Temperature 36.6 C Heart Rate 96 Heart Rate [ 99 Activity] Heart Rate [ 100 Monitoring electrodes] Heart Rate [ 86 Supine] Respiratory 21 24 Rate Blood Pressure 99/66 [Activity] Blood Pressure 99/66 [Right Brachial artery] Blood Pressure 124/70 [Supine] O2 Saturation 93 08/25/21 13:09 Temperature Heart Rate Heart Rate [ Activity] Heart Rate [ 91 Monitoring electrodes] Heart Rate [ Supine] Respiratory 22 Rate Blood Pressure [Activity] Blood Pressure 119/71 [Right Brachial artery] Blood Pressure [Supine] O2 Saturation 92 Oxygen O2 Source Nasal cannula Oxygen Flow Rate 4 I&O (Last 24 Hrs): Intake and Output Totals x24h 08/23/21 08/24/21 08/25/21 23:59 23:59 23:59 Intake Total 801 1081 1290 Output Total 500 1375 250 Balance 301 -294 1040 General: Alert, Other (Lethargic but awakens easily) HEENT: Mucous membr. moist/pink Neck: Supple, No JVD Neuro: Alert, Non Focal Cardiovascular: Regular rate, No murmurs Respiratory: No respiratory distress, Breath sounds nml, Other (He has palpable gynecomastia) Abdomen: Normal bowel sounds, Soft, Other (Has a ventral hernia, non-tender) Extremities: No clubbing, No edema - Results Results: Laboratory Results WBC 22.7 x10^3/uL (4.8-10.8) H 08/25/21 04:17 RBC 4.62 10^6/uL (4.70-6.10) L 08/25/21 04:17 Hgb 14.4 g/dL (14.0-18.0) 08/25/21 04:17 Hct 44.4 % (42.0-52.0) 08/25/21 04:17 MCV 96.1 fL (80.0-94.0) H 08/25/21 04:17 MCH 31.2 pg (27.0-31.0) H 08/25/21 04:17 MCHC 32.4 g/dL (32.0-36.0) 08/25/21 04:17 RDW 13.0 % (12.0-15.0) 08/25/21 04:17 Plt Count 372 10^3/uL (130-450) 08/25/21 04:17 MPV 9.9 fL (7.4-11.4) 08/25/21 04:17 Neut # (Auto) Not Reportable 08/25/21 04:17 Lymph # (Auto) Not Reportable 08/25/21 04:17 [place] # (Auto) Not Reportable 08/25/21 04:17 Eos # (Auto) Not Reportable 08/25/21 04:17 Baso # (Auto) Not Reportable 08/25/21 04:17 Absolute Nucleated RBC Not Reportable 08/25/21 04:17 Total Counted 100 08/25/21 04:17 Band Neuts % (Manual) 0 % (0-10) 08/25/21 04:17 Abnorm Lymph % (Manual) 1 % 08/25/21 04:17 Myelocytes % 1 % (-0) H 08/25/21 04:17 Nucleated RBC % Not Reportable 08/25/21 04:17 Neutrophils # (Manual) 19.5 10^3/uL (1.5-6.6) H 08/25/21 04:17 Lymphocytes # (Manual) 1.6 10^3/uL (1.5-3.5) 08/25/21 04:17 Monocytes # (Manual) 1.4 10^3/uL (0.0-1.0) H 08/25/21 04:17 Eosinophils # (Manual) 0.0 10^3/uL (0-0.7) 08/25/21 04:17 Basophils # (Manual) 0.0 10^3/uL (0-0.1) 08/25/21 04:17 Differential Comment MANUAL DIFFERENTIAL 08/25/21 04:17 Manual Slide Review Indicated 08/24/21 09:06 WBC Morphology NORMAL APPEARANCE (NORMAL) 08/25/21 04:17 Platelet Estimate NORMAL (130-450,000) (NORMAL) 08/25/21 04:17 Platelet Morphology NORMAL APPEARANCE (NORMAL) 08/25/21 04:17 RBC Morph Micro Appear NORMAL APPEARANCE (NORMAL) 08/25/21 04:17 Bld Gas Analysis Time 0845 08/22/21 08:45 Sample Site LEFT RADIAL 08/22/21 08:45 ABG pH 7.37 (7.35-7.45) 08/22/21 08:45 ABG pCO2 64 mmHg (34-45) H* 08/22/21 08:45 ABG pO2 61 mmHg (80-100) L 08/22/21 08:45 ABG HCO3 36.3 mmol/L (22.0-26.0) H 08/22/21 08:45 ABG Total CO2 38.2 MMOL/L (21.0-29.0) H 08/22/21 08:45 ABG O2 Saturation 92 % (94-98) L 08/22/21 08:45 ABG Base Excess 8.7 mmol/L (-2.0-3.0) H 08/22/21 08:45 [place] Test POSITIVE 08/22/21 08:45 VBG pH 7.374 (7.31-7.41) 08/22/21 05:31 Ionized Calcium 1.12 mmol/L (1.15-1.33) L 08/22/21 05:31 O2 Delivery Device BiPAP 08/22/21 08:45 O2 Liters/Min 3.00 LPM 08/21/21 08:30 FiO2 30.00 08/22/21 08:45 EPAP 5 cmH2O 08/22/21 08:45 IPAP 16 cmH2O 08/22/21 08:45 Sodium 140 mmol/L (135-145) 08/25/21 04:17 Potassium 4.3 mmol/L (3.5-5.0) 08/25/21 04:17 Chloride 91 mmol/L (101-111) L 08/25/21 04:17 Carbon Dioxide 37 mmol/L (21-32) H 08/25/21 04:17 Anion Gap 12.0 (6-13) 08/25/21 04:17 BUN 26 mg/dL (6-20) H 08/25/21 04:17 Creatinine 0.8 mg/dL (0.6-1.2) 08/25/21 04:17 Estimated GFR (MDRD) 96 (>89) 08/25/21 04:17 Glucose 142 mg/dL (70-100) H 08/25/21 04:17 Lactic Acid 0.9 mmol/L (0.5-2.2) 08/21/21 07:55 Calcium 9.2 mg/dL (8.5-10.3) 08/25/21 04:17 Phosphorus 5.3 mg/dL (2.5-4.6) H 08/25/21 04:17 Magnesium 2.5 mg/dL (1.7-2.8) 08/25/21 04:17 Total Bilirubin 0.4 mg/dL (0.2-1.0) 08/21/21 07:55 Direct Bilirubin < 0.1 mg/dL (0.1-0.5) L 08/21/21 07:55 AST 17 IU/L (10-42) 08/21/21 07:55 ALT 37 IU/L (10-60) 08/21/21 07:55 Alkaline Phosphatase 75 IU/L (42-121) 08/21/21 07:55 Ammonia 15.8 umol/L (7-35) 08/24/21 09:06 Troponin I High Sens 13.6 ng/L (2.3-19.7) 08/19/21 05:09 B-Natriuretic Peptide 118 pg/mL (5-100) H 08/18/21 10:05 Total Protein 6.8 g/dL (6.7-8.2) 08/21/21 07:55 Albumin 3.4 g/dL (3.2-5.5) 08/21/21 07:55 Globulin 3.4 g/dL (2.1-4.2) 08/21/21 07:55 Albumin/Globulin Ratio 1.1 (1.0-2.2) 08/18/21 10:05 Lipase 23 U/L (22-51) 08/18/21 10:05 Vitamin B12 562 pg/mL (180-914) 08/21/21 07:55 Folate 10.88 ng/mL (5.90 - >24.8) 08/21/21 07:55 TSH 0.20 uIU/mL (0.34-5.60) L 08/19/21 05:09 Free T4 0.79 ng/dL (0.58-1.64) 08/19/21 07:12 Nasal Adenovirus (PCR) NOT DETECTED 08/18/21 11:30 Nasal B. parapertussis DNA (PCR) NOT DETECTED 08/18/21 11:30 Nasal Coronavir 229E PCR NOT DETECTED 08/18/21 11:30 Nasal Coronavir HKU1 PCR NOT DETECTED 08/18/21 11:30 Nasal Coronavir NL63 PCR NOT DETECTED 08/18/21 11:30 Nasal Coronavir OC43 PCR NOT DETECTED 08/18/21 11:30 Nasal Enterovir/Rhinovir PCR NOT DETECTED 08/18/21 11:30 Nasal Influenza B PCR NOT DETECTED 08/18/21 11:30 Nasal Influenza A PCR NOT DETECTED 08/18/21 11:30 Nasal Parainfluen 1 PCR NOT DETECTED 08/18/21 11:30 Nasal Parainfluen 2 PCR NOT DETECTED 08/18/21 11:30 Nasal Parainfluen 3 PCR NOT DETECTED 08/18/21 11:30 Nasal Parainfluen 4 PCR NOT DETECTED 08/18/21 11:30 Nasal RSV (PCR) NOT DETECTED 08/18/21 11:30 Nasal Screen MRSA (PCR) NEGATIVE (NEGATIVE) 08/21/21 13:49 Nasal B.pertussis DNA PCR NOT DETECTED 08/18/21 11:30 Nasal C.pneumoniae (PCR) NOT DETECTED 08/18/21 11:30 [place] Human Metapneumo PCR NOT DETECTED 08/18/21 11:30 Nasal M.pneumoniae (PCR) NOT DETECTED 08/18/21 11:30 Nasal SARS-CoV-2 (PCR) NOT DETECTED 08/18/21 11:30 - Procedures Procedures: Procedures CATARAC PHACOEMULS/ASPIR (07/16/14) EXCISION OF ASCENDING COLON, ENDO (08/21/18) EXCISION OF DESCENDING COLON, ENDO (08/21/18) EXCISION OF SIGMOID COLON, ENDO (08/21/18) EXCISION OF TRANSVERSE COLON, ENDO (08/21/18) INSERT LENS AT CATAR EXT (07/16/14) REPLACEMENT OF RIGHT LENS WITH SYNTH SUB, PERC APPROACH (12/24/14) Sepsis Event Note (H) - Evaluation Current Stage of Sepsis: Sepsis Possible source of Sepsis: positive: Pulmonary - Sepsis Criteria Sepsis Criteria: Recorded Heart Rate greater than 90 bpm, Recorded Respiratory Rate greater than 20, Respiratory: Increasing oxygen requirements, WBC count greater than 12,000 or less than 4000
[2021-08-25] MEDS ORDERED: traZODone 50 MG TABLET PO PRN (14:18)
[2021-08-25] MEDS: lisinopriL 5 MG TABLET PO SCH (15:06)
[2021-08-25] MEDS: ACETAMINOPHEN 325 MG TABLET PO PRN (15:18)
[2021-08-26] MEDS: SODIUM CHLORIDE FLUSH 0.9% 10 ML SYRINGE IVP SCH ×3 (00:03→17:20)
[2021-08-26 05:27] LABS: BASOPHILS % (AUTO) 0.3 %; EOSINOPHILS % (AUTO) 1.4 %; HGB - HEMOGLOBIN 14.6 g/dL (14.0-18.0); MEAN CORPUSCULAR HEMOGLOBIN 31.9 pg (27.0-31.0); MEAN CORPUSCULAR HGB CONC 33.2 g/dL (32.0-36.0); MEAN CORPUSCULAR VOLUME 96.1 fL (80.0-94.0); MEAN PLATELET VOLUME 9.8 fL (7.4-11.4); MONOCYTES % (AUTO) 8.7 %; PLT - PLATELET COUNT 374 10^3/uL (130-450); RED BLOOD COUNT 4.58 10^6/uL (4.70-6.10); RED CELL DISTRIBUTION WIDTH 13.3 % (12.0-15.0); WHITE BLOOD COUNT 18.8 x10^3/uL (4.8-10.8)
[2021-08-26 05:34] LABS: CREATININE 0.9 mg/dL (0.6-1.2); POTASSIUM 3.8 mmol/L (3.5-5.0)
[2021-08-26 05:37] LABS: ABNORMAL LYMPHS % (MANUAL) 0 %
[2021-08-26 06:14] LABS: BAND NEUTROPHILS % (MANUAL) 1 %; DIFFERENTIAL COMMENT MANUAL DIFFERENTIAL; LYMPHOCYTES # (MANUAL) 2.4 10^3/uL (1.5-3.5); LYMPHOCYTES % (MANUAL) 13 %; MONOCYTES # (MANUAL) 1.9 10^3/uL (0.0-1.0); NEUTROPHILS # (MANUAL) 14.5 10^3/uL (1.5-6.6); PLATELET ESTIMATE, MANUAL NORMAL (130-450,000) (NORMAL); RBC MORPHOLOGY (MULTIPLE) NORMAL APPEARANCE (NORMAL)
[2021-08-26] MEDS: IPRATROPIUM/ALBUTEROL 3 ML NEB INH SCH ×4 (07:10→19:16)
[2021-08-26] MEDS: CEFEPIME 2 GM in SODIUM CHLORIDE 0.9% MINIBAG 100 ML IV SCH ×2 (08:38→21:11)
[2021-08-26] MEDS: ENOXAPARIN 40 MG/0.4 ML SYRINGE SUBQ SCH (08:42)
[2021-08-26] MEDS: guaiFENesin 600 MG TABLET PO SCH ×2 (08:43→21:11)
[2021-08-26] MEDS: predniSONE 20 MG TABLET PO SCH (08:43)
[2021-08-26] MEDS: METOPROLOL SUCCINATE 25 MG TABLET PO SCH (08:43)
[2021-08-26] MEDS: THIAMINE 100 MG TABLET PO SCH (08:43)
[2021-08-26] MEDS: CHOLECALCIFEROL 25 MCG TABLET PO SCH (08:43)
[2021-08-26] MEDS: FUROSEMIDE 20 MG TABLET PO SCH (08:43)
[2021-08-26] MEDS: ASPIRIN EC 81 MG TABLET PO SCH (08:43)
[2021-08-26] MEDS ORDERED: traZODone 50 MG TABLET PO PRN (18:00)
--- NOTE | 2021-08-26 18:28 | PROVIDER PROGRESS NOTE ---
Assessment/Plan - Problem List (1) Encephalopathy Assessment/Plan: (1) Encephalopathy Assessment/Plan: Improved. He was able to start with PT yesterday and walked a good distance with PT today. He was able to shower on his own today He had presented oriented then became somnolent and confused. We suspected this is likely multifactorial He was slightly hypotensive, therefore we stopped the Lisinopril yesterday We stopped Ativan and narcotics and decreased his home med dose of Trazadone for sleep, as it is possibly compounding. Depending on PT, he may need discharge to a SNF for rehab (2) Acute on chronic respiratory failure with hypoxia and hypercapnia Impression: This is secondary to COPD exacerbation, the pneumonia and as well as likely the encephalopathy. He was started on BiPAP, with improvement in his ABG. He is most definitely a chronic CO2 retainer. We will continue to manage his COPD as mentioned below with steroids, antibiotics, nebulizers. Continue the patient on suppl O2; he is on 2L O2 at home (3) COPD exacerbation Impression: This was contributing to his respiratory failure. He is much less dyspneic today Solu-Medrol iv was changed to Prednisone 20 mg po daily He is finishing the cefepime for the community-acquired pneumonia today Continue duo nebs scheduled every 4 hrs, and albuterol as needed. Continue the patient on chronic suppl O2; he is on 2L O2 at home, keeping sats >88% (4) Community acquired pneumonia Impression: This was the cause of his sepsis. He is finishing Cefepime today, had finished ZithromaxWe will continue Cefepime, with today being day 4. We will treat for 7 days. Stop date ordered (5) Atrial fibrillation Impression: He had paroxysmal Afib shortly after admission, now remains in sinus rhythm. An Echocardiogram was done and showed normal LV function. He is on po Lopressor, the dose was decreased due to low BP His CHADS score = 1 (HTN), so he will not need Eliquis, but a baby aspirin daily has been ordered. Continue to monitor on telemetry. Qualifiers: Atrial fibrillation type: paroxysmal Qualified Code(s): I48.0 - Paroxysmal atrial fibrillation (6) Alcohol abuse Impression: He has gynecomastia, likely from alcohol abuse and liver disease. Initial concern was for alcohol withdrawal but rather we suspect that he had benzodiazepine-induced delirium. We will continue with thiamine po daily. We are limiting the use of Ativan. (7) Sepsis Impression: Resolved. This was secondary to community-acquired pneumonia. - Current Meds Current Meds: Current Medications Generic Name Dose Route Start Last Admin Trade Name Freq PRN Reason Stop Dose Admin Acetaminophen 650 mg 08/18/21 13:33 08/25/21 15:18 Acetaminophen 325 Mg Tablet PO 650 mg Q4HR PRN Administration Pain 1 to 4, or Fever Albuterol 2.5 mg 08/18/21 13:38 08/24/21 14:41 Albuterol Neb 2.5 Mg/3 Ml INH 2.5 mg RTQ4H PRN Administration Wheezing Albuterol/Ipratropium 3 ml 08/25/21 11:00 08/26/21 15:01 Ipratropium/Albuterol 3 Ml Neb INH 3 ml RTQID ELISABET Administration Aspirin 81 mg 08/24/21 15:00 08/26/21 08:43 Aspirin Ec 81 Mg Tablet PO 81 mg DAILY ELISABET Administration Benzonatate 100 mg 08/18/21 13:56 08/25/21 09:10 Benzonatate 100 Mg Capsule PO 100 mg TID PRN Administration Cough Cetirizine HCl 10 mg 08/19/21 07:47 08/19/21 09:09 Cetirizine 10 Mg Tablet PO 10 mg DAILY PRN Administration Allergy Symptoms Cholecalciferol 25 mcg 08/19/21 09:00 08/26/21 08:43 Cholecalciferol 25 Mcg Tablet PO 25 mcg DAILY ELISABET Administration Enoxaparin Sodium 40 mg 08/22/21 10:30 08/26/21 08:42 Enoxaparin 40 Mg/0.4 Ml Syringe SUBQ 40 mg DAILY ELISABET Administration Guaifenesin 600 mg 08/18/21 21:00 08/26/21 08:43 Guaifenesin 600 Mg Tablet PO 600 mg BID ELISABET Administration Cefepime HCl 2 gm/ Sodium 100 mls @ 200 mls/hr 08/21/21 09:00 08/26/21 09:15 Chloride IV 08/27/21 23:00 Infused BID ELISABET Infusion Prednisone 20 mg 08/25/21 08:00 08/26/21 08:43 Prednisone 20 Mg Tablet PO 20 mg DAILYWM ELISABET Administration Sodium Chloride 10 ml 08/18/21 13:19 08/24/21 20:51 Sodium Chloride Flush 0.9% 10 Ml Syringe IVP 10 ml PRN PRN Administration NEEDED PER PROVIDER ORDERS Sodium Chloride 10 ml 08/18/21 17:00 08/26/21 17:20 Sodium Chloride Flush 0.9% 10 Ml Syringe IVP 10 ml 0100,0900,1700 ELISABET Administration Thiamine HCl 100 mg 08/25/21 09:00 08/26/21 08:43 Thiamine 100 Mg Tablet PO 100 mg DAILY ELISABET Administration - Lab Result Fish Bone Diagrams: 08/26/21 04:49 08/26/21 04:49 - Additional Planning My Orders: My Active Orders 08/26/21 Home Health Referral [CONS] Routine 08/26/21 18:00 traZODone [Desyrel] 25 mg PO 1800 PRN 08/27/21 05:00 BMP - BASIC METABOLIC PANEL [CHEM] DAILYLAB CBC - COMP BLD CT W/AUTO DIFF [HEME] DAILYLAB 08/27/21 09:00 Metoprolol Succinate [Toprol Xl] 12.5 mg PO DAILY 08/28/21 05:00 BMP - BASIC METABOLIC PANEL [CHEM] DAILYLAB CBC - COMP BLD CT W/AUTO DIFF [HEME] DAILYLAB 08/29/21 10:00 Furosemide [Lasix] 20 mg PO MOWEFR Subjective - Subjective Patient Reports: No Complaints Objective Vital Signs: Vital Signs - 24 hr 08/25/21 08/25/21 08/26/21 21:08 21:25 01:00 Temperature 36.5 C 36.9 C Heart Rate 90 Heart Rate [ 90 Brachial] Heart Rate [ 90 Monitoring electrodes] Respiratory 20 18 18 Rate Blood Pressure 114/68 112/70 [Right Brachial artery] O2 Saturation 98 96 08/26/21 08/26/21 08/26/21 05:00 07:11 08:23 Temperature 36.5 C 37.1 C Heart Rate 88 Heart Rate [ 95 Brachial] Heart Rate [ 82 Monitoring electrodes] Respiratory 19 20 16 Rate Blood Pressure 120/62 109/50 L [Right Brachial artery] O2 Saturation 100 99 08/26/21 08/26/21 08/26/21 13:00 15:01 15:27 Temperature 37.1 C 36.7 C Heart Rate 84 Heart Rate [ 89 88 Brachial] Heart Rate [ Monitoring electrodes] Respiratory 20 18 18 Rate Blood Pressure 126/66 116/65 [Right Brachial artery] O2 Saturation 99 92 Oxygen O2 Source Nasal cannula Oxygen Flow Rate 4 I&O (Last 24 Hrs): Intake and Output Totals x24h 08/24/21 08/25/21 08/26/21 23:59 23:59 23:59 Intake Total 1081 2050 1760 Output Total 1375 250 Balance -294 1800 1760 General: Alert HEENT: EOMI Neck: Supple Neuro: Alert, Non Focal Cardiovascular: Regular rate Respiratory: No respiratory distress (wearing O2 per n.c.) Abdomen: Soft Extremities: No edema - Results Results: Laboratory Results WBC 18.8 x10^3/uL (4.8-10.8) H 08/26/21 04:49 RBC 4.58 10^6/uL (4.70-6.10) L 08/26/21 04:49 Hgb 14.6 g/dL (14.0-18.0) 08/26/21 04:49 Hct 44.0 % (42.0-52.0) 08/26/21 04:49 MCV 96.1 fL (80.0-94.0) H 08/26/21 04:49 MCH 31.9 pg (27.0-31.0) H 08/26/21 04:49 MCHC 33.2 g/dL (32.0-36.0) 08/26/21 04:49 RDW 13.3 % (12.0-15.0) 08/26/21 04:49 Plt Count 374 10^3/uL (130-450) 08/26/21 04:49 MPV 9.8 fL (7.4-11.4) 08/26/21 04:49 Neut # (Auto) Not Reportable 08/26/21 04:49 Lymph # (Auto) Not Reportable 08/26/21 04:49 Cache # (Auto) Not Reportable 08/26/21 04:49 Eos # (Auto) Not Reportable 08/26/21 04:49 Baso # (Auto) Not Reportable 08/26/21 04:49 Absolute Nucleated RBC Not Reportable 08/26/21 04:49 Total Counted 100 08/26/21 04:49 Band Neuts % (Manual) 1 % (0-10) 08/26/21 04:49 Abnorm Lymph % (Manual) 0 % 08/26/21 04:49 Myelocytes % 1 % (-0) H 08/25/21 04:17 Nucleated RBC % Not Reportable 08/26/21 04:49 Neutrophils # (Manual) 14.5 10^3/uL (1.5-6.6) H 08/26/21 04:49 Lymphocytes # (Manual) 2.4 10^3/uL (1.5-3.5) 08/26/21 04:49 Monocytes # (Manual) 1.9 10^3/uL (0.0-1.0) H 08/26/21 04:49 Eosinophils # (Manual) 0.0 10^3/uL (0-0.7) 08/26/21 04:49 Basophils # (Manual) 0.0 10^3/uL (0-0.1) 08/26/21 04:49 Differential Comment MANUAL DIFFERENTIAL 08/26/21 04:49 Manual Slide Review Indicated 08/24/21 09:06 WBC Morphology NORMAL APPEARANCE (NORMAL) 08/25/21 04:17 Platelet Estimate NORMAL (130-450,000) (NORMAL) 08/26/21 04:49 Platelet Morphology NORMAL APPEARANCE (NORMAL) 08/25/21 04:17 RBC Morph Micro Appear NORMAL APPEARANCE (NORMAL) 08/26/21 04:49 Bld Gas Analysis Time 0845 08/22/21 08:45 Sample Site LEFT RADIAL 08/22/21 08:45 ABG pH 7.37 (7.35-7.45) 08/22/21 08:45 ABG pCO2 64 mmHg (34-45) H* 08/22/21 08:45 ABG pO2 61 mmHg (80-100) L 08/22/21 08:45 ABG HCO3 36.3 mmol/L (22.0-26.0) H 08/22/21 08:45 ABG Total CO2 38.2 MMOL/L (21.0-29.0) H 08/22/21 08:45 ABG O2 Saturation 92 % (94-98) L 08/22/21 08:45 ABG Base Excess 8.7 mmol/L (-2.0-3.0) H 08/22/21 08:45 Ganga Test POSITIVE 08/22/21 08:45 VBG pH 7.374 (7.31-7.41) 08/22/21 05:31 Ionized Calcium 1.12 mmol/L (1.15-1.33) L 08/22/21 05:31 O2 Delivery Device BiPAP 08/22/21 08:45 O2 Liters/Min 3.00 LPM 08/21/21 08:30 FiO2 30.00 08/22/21 08:45 EPAP 5 cmH2O 08/22/21 08:45 IPAP 16 cmH2O 08/22/21 08:45 Sodium 140 mmol/L (135-145) 08/26/21 04:49 Potassium 3.8 mmol/L (3.5-5.0) 08/26/21 04:49 Chloride 94 mmol/L (101-111) L 08/26/21 04:49 Carbon Dioxide 36 mmol/L (21-32) H 08/26/21 04:49 Anion Gap 10.0 (6-13) 08/26/21 04:49 BUN 30 mg/dL (6-20) H 08/26/21 04:49 Creatinine 0.9 mg/dL (0.6-1.2) 08/26/21 04:49 Estimated GFR (MDRD) 84 (>89) L 08/26/21 04:49 Glucose 102 mg/dL (70-100) H 08/26/21 04:49 POC Whole Bld Glucose 140 mg/dL (70 - 100) H 08/25/21 16:40 Lactic Acid 0.9 mmol/L (0.5-2.2) 08/21/21 07:55 Calcium 9.0 mg/dL (8.5-10.3) 08/26/21 04:49 Phosphorus 5.3 mg/dL (2.5-4.6) H 08/25/21 04:17 Magnesium 2.5 mg/dL (1.7-2.8) 08/25/21 04:17 Total Bilirubin 0.4 mg/dL (0.2-1.0) 08/21/21 07:55 Direct Bilirubin < 0.1 mg/dL (0.1-0.5) L 08/21/21 07:55 AST 17 IU/L (10-42) 08/21/21 07:55 ALT 37 IU/L (10-60) 08/21/21 07:55 Alkaline Phosphatase 75 IU/L (42-121) 08/21/21 07:55 Ammonia 15.8 umol/L (7-35) 08/24/21 09:06 Troponin I High Sens 13.6 ng/L (2.3-19.7) 08/19/21 05:09 B-Natriuretic Peptide 118 pg/mL (5-100) H 08/18/21 10:05 Total Protein 6.8 g/dL (6.7-8.2) 08/21/21 07:55 Albumin 3.4 g/dL (3.2-5.5) 08/21/21 07:55 Globulin 3.4 g/dL (2.1-4.2) 08/21/21 07:55 Albumin/Globulin Ratio 1.1 (1.0-2.2) 08/18/21 10:05 Lipase 23 U/L (22-51) 08/18/21 10:05 Vitamin B12 562 pg/mL (180-914) 08/21/21 07:55 Folate 10.88 ng/mL (5.90 - >24.8) 08/21/21 07:55 TSH 0.20 uIU/mL (0.34-5.60) L 08/19/21 05:09 Free T4 0.79 ng/dL (0.58-1.64) 08/19/21 07:12 Nasal Adenovirus (PCR) NOT DETECTED 08/18/21 11:30 Nasal B. parapertussis DNA (PCR) NOT DETECTED 08/18/21 11:30 Nasal Coronavir 229E PCR NOT DETECTED 08/18/21 11:30 Nasal Coronavir HKU1 PCR NOT DETECTED 08/18/21 11:30 Nasal Coronavir NL63 PCR NOT DETECTED 08/18/21 11:30 Nasal Coronavir OC43 PCR NOT DETECTED 08/18/21 11:30 Nasal Enterovir/Rhinovir PCR NOT DETECTED 08/18/21 11:30 Nasal Influenza B PCR NOT DETECTED 08/18/21 11:30 Nasal Influenza A PCR NOT DETECTED 08/18/21 11:30 Nasal Parainfluen 1 PCR NOT DETECTED 08/18/21 11:30 Nasal Parainfluen 2 PCR NOT DETECTED 08/18/21 11:30 Nasal Parainfluen 3 PCR NOT DETECTED 08/18/21 11:30 Nasal Parainfluen 4 PCR NOT DETECTED 08/18/21 11:30 Nasal RSV (PCR) NOT DETECTED 08/18/21 11:30 Nasal Screen MRSA (PCR) NEGATIVE (NEGATIVE) 08/21/21 13:49 Nasal B.pertussis DNA PCR NOT DETECTED 08/18/21 11:30 Nasal C.pneumoniae (PCR) NOT DETECTED 08/18/21 11:30 Lenin Human Metapneumo PCR NOT DETECTED 08/18/21 11:30 Nasal M.pneumoniae (PCR) NOT DETECTED 08/18/21 11:30 Nasal SARS-CoV-2 (PCR) NOT DETECTED 08/18/21 11:30 - Procedures Procedures: Procedures CATARAC PHACOEMULS/ASPIR (07/16/14) EXCISION OF ASCENDING COLON, ENDO (08/21/18) EXCISION OF DESCENDING COLON, ENDO (08/21/18) EXCISION OF SIGMOID COLON, ENDO (08/21/18) EXCISION OF TRANSVERSE COLON, ENDO (08/21/18) INSERT LENS AT CATAR EXT (07/16/14) REPLACEMENT OF RIGHT LENS WITH SYNTH SUB, PERC APPROACH (12/24/14) Sepsis Event Note (H) - Evaluation Current Stage of Sepsis: Sepsis Possible source of Sepsis: positive: Pulmonary - Sepsis Criteria Sepsis Criteria: Recorded Heart Rate greater than 90 bpm, Recorded Respiratory Rate greater than 20, Respiratory: Increasing oxygen requirements, WBC count greater than 12,000 or less than 4000
[2021-08-27] MEDS: SODIUM CHLORIDE FLUSH 0.9% 10 ML SYRINGE IVP SCH ×2 (04:08→08:05)
[2021-08-27 05:20] LABS: BASOPHILS % (AUTO) 0.2 %; EOSINOPHILS % (AUTO) 1.2 %; HCT - HEMATOCRIT 44.6 % (42.0-52.0); HGB - HEMOGLOBIN 14.5 g/dL (14.0-18.0); LYMPHOCYTES % (AUTO) 17.1 %; MEAN CORPUSCULAR HEMOGLOBIN 31.5 pg (27.0-31.0); MEAN CORPUSCULAR HGB CONC 32.5 g/dL (32.0-36.0); MEAN CORPUSCULAR VOLUME 96.7 fL (80.0-94.0); MEAN PLATELET VOLUME 9.6 fL (7.4-11.4); MONOCYTES % (AUTO) 10.7 %; NEUTROPHILS % (AUTO) 65.9 %; PLT - PLATELET COUNT 379 10^3/uL (130-450); RED BLOOD COUNT 4.61 10^6/uL (4.70-6.10); RED CELL DISTRIBUTION WIDTH 13.2 % (12.0-15.0); WHITE BLOOD COUNT 18.5 x10^3/uL (4.8-10.8)
[2021-08-27 05:28] LABS: CALCIUM 9.4 mg/dL (8.5-10.3); POTASSIUM 3.9 mmol/L (3.5-5.0)
[2021-08-27 05:30] LABS: ABNORMAL LYMPHS % (MANUAL) 0 %
[2021-08-27 05:58] LABS: BAND NEUTROPHILS % (MANUAL) 3 %; DIFFERENTIAL COMMENT MANUAL DIFFERENTIAL; LYMPHOCYTES # (MANUAL) 3.3 10^3/uL (1.5-3.5); LYMPHOCYTES % (MANUAL) 18 %; NEUTROPHILS # (MANUAL) 13.1 10^3/uL (1.5-6.6); PLATELET ESTIMATE, MANUAL NORMAL (130-450,000) (NORMAL); RBC MORPHOLOGY (MULTIPLE) NORMAL APPEARANCE (NORMAL)
[2021-08-27] MEDS: IPRATROPIUM/ALBUTEROL 3 ML NEB INH SCH ×2 (07:44→11:09)
[2021-08-27] MEDS: CEFEPIME 2 GM in SODIUM CHLORIDE 0.9% MINIBAG 100 ML IV SCH (08:03)
[2021-08-27] MEDS: predniSONE 20 MG TABLET PO SCH (08:04)
[2021-08-27] MEDS: ENOXAPARIN 40 MG/0.4 ML SYRINGE SUBQ SCH (08:04)
[2021-08-27] MEDS: guaiFENesin 600 MG TABLET PO SCH (08:04)
[2021-08-27] MEDS: CHOLECALCIFEROL 25 MCG TABLET PO SCH (08:05)
[2021-08-27] MEDS: ASPIRIN EC 81 MG TABLET PO SCH (08:05)
[2021-08-27] MEDS ORDERED: METOPROLOL SUCCINATE 25 MG TABLET PO SCH (09:00)
[2021-08-27] MEDS: THIAMINE 100 MG TABLET PO SCH (10:17)
--- NOTE | 2021-08-27 10:59 | Discharge Plan ---
Discharge Plan Problem Reviewed?: Yes Disposition: Home, Self Care Condition: Fair Prescriptions: Metoprolol Succinate [Toprol Xl] 12.5 mg PO DAILY #15 tablet Diet: Cardiac Activity Restrictions: Activity as Tolerated Shower Restrictions: No Driving Restrictions: No Assistance Devices: Cane Instruction Topics: Disease Chronic Lung Quit Smoking Health Concerns: You were hospitalized to treat a pneumonia that had caused a significant respuratory setback, due to your COPD. You were on special breathing equipment and needed to be in the ICU. You were very somnolent and have become deconditioned. You have completed the course of antibiotics needed for the pneumonia. You are being discharged home today and advised to stop smoking, continue having rehab with physical therapy for strengthening and use your supplemental oxygen set at 2L/min continuously. Please see your primary care provider in the next 1 to 2 weeks for hospital follow-up visit. Because of your underlying COPD, you qualify to attend pulmonary rehab at the pulmonary rehab center here as an outpatient. You would need a referral from a provider to start. Please stop taking in so much alcohol, it has affected your strength, balance, memory and alertness. You are being discharged home with a new prescription for Toprol, for the irregular and rapid heart rhythm you developed called Afib. Also, to prevent a stroke when you go into Afib, you should be taking 1 baby aspirin daily for the rest of your life. New prescriptions were electronically prescribed to your [facility] in [place]. Please resume all your other pre-Hospital medications. The Prednisone is a steroid for your lungs that requires a very slow taper over several months. The B vitamin helps your brain when there has been alcohol abuse. Plan of Treatment: As above. Care Goals: Stop smoking. Stop drinking alcohol in excess. Our Software Sales Consultant provided you with some ideas on stopping, and other resources for you. Resume all your prehospital medications. Assessment: These instructions are provided for you and your daughter as a reminder, for after discharge. Additional Instructions or Follow Up instructions: If you have new or worsening symptoms, call your Primary Care Provider for advice, or come to the ED. Follow-Up Care: [facility] - Pulmonary, Home Health - RN, Home Health - PT, Home Health - OT, Home Health - ST No Smoking: If you smoke, Please STOP! Call for help. Follow-up with: Rochelle Martínez ARNP [Primary Care Provider] -
--- NOTE | 2021-08-27 11:21 | DISCHARGE SUMMARY ---
Discharge Summary Admit Date: 08/10/21 Discharge Date: 08/27/21 Discharging Provider: Polly Hernandez MD Primary Care Provider: Rochelle Jonas NP Condition at Discharge: Fair Discharge Disposition: [facility] History of Present Illness: From the admission H&P of Dr Wojciech Mariscal: This is 66-year-old male with a past medical history significant for COPD on 2 L of oxygen with activity, history of prostate cancer status post prostatectomy, hypertension, and alcohol abuse who presents today complaining of shortness of breath. He states he began feeling short of breath about 3 days ago. He has developed fevers and chills although he has not checked his temperature. He did a COVID test yesterday which was negative. He has had chest congestion and a productive cough with green sputum. He denies any chest pain. He has had wheezing and has tried his home inhalers without any relief. He continues to smoke a pack of cigarettes a day. He is vaccinated against COVID-19. He reports no lower extremity edema. He states his symptoms feel similar to when he was hospitalized last year around [facility]. He is only on 2 L of oxygen with activity. In the emergency department, he was noted to be quite tachypneic and required 2 L of oxygen via nasal cannula at rest. Chest x-ray suggested bilateral pneumonia. His white count is elevated at over 20,000. He was given antibiotics, steroids and nebulizer treatments. Given his ongoing symptoms, medicine was consulted for admission. We discussed goals of care and he would like to be a DNR. He is agreeable to mechanical ventilation if necessary. - HOSPITAL COURSE Hospital Course: (1) Sepsis Resolved. This was secondary to community-acquired pneumonia. (2) Community acquired pneumonia This was the cause of his sepsis. He tested COVID neg. His antibiotcs were broadened from empiric Ceftrixone and Zithomax, to Cefepime on Day 4 of hospitalization, to cover Pseudomonas, since his WBC lis. Eventually his WBC improved and he finished a 7 day course of Cefepime. (3) Acute on chronic respiratory failure with hypoxia and hypercapnia This was secondary to COPD exacerbation, the pneumonia and as well as the encephalopathy (see below). He became agitated and confused on Day #4 and needed to be put in the ICU and required BiPAP for CO2 retention. The O2 was slowly weaned down. At discharge, the suppl O2 at 2L/min was continued. (4) COPD exacerbation He was wheezing and abg showed respiratory acidosis. He got iv antibiotics, was on duo nebs scheduled every 4 hrs, and albuterol as needed, Solu-Medrol iv was eventually changed to Prednisone 20 mg po daily and he was discharged home on this and advised a slow taper. Home O2 was continued. (5) Atrial fibrillation He had paroxysmal Afib shortly after admission, then remaied in sinus rhythm. An Echocardiogram was done and showed normal LV function. He was started on new Lopressor, discharged on this and his CHADS score = 1 (HTN), so he did not need Eliquis, but a baby aspirin daily was prescribed and continued. (6) Alcohol abuse He drinks a pint of alcohol a day. A CIWA protocol was ordered. He was on iv then po daily Thiamine. At discharge, he requested help to quit and SW gave him resources. (7) Encephalopathy He had presented oriented then became agitated and confused on Day 4. We suspected he went into alcohol withdrawal. He then had hypersomnolence with confusion, which continued for many days and prolonged his hospital stay. This was likely multifactorial: from CO2 narcosis, benzodiazepine-induced somnolence, and we decreased his home med dose of Trazadone for sleep, as it was possibly co mpounding. We limited the use of Ativan. His somnolence lasted several days, but eventually he could start working with PT and did not require a SNF for rehab. He requested Home Health for a shower aid. (8) Tobacco use He planned to quit "cold turkey" he said. (9) Gynecomastia He had gynecomastia probably from being on Estrace, presumbly due to his prostate CA history. (10) Ventral hernia He had a large, reducible and non-tender ventral hernia. - ALLERGIES Allergies/Adverse Reactions: Allergies Allergy/AdvReac Type Severity Reaction Status Date / Time No Known Drug Allergies Allergy Verified 08/18/21 09:49 - MEDICATIONS Home Medications: Ambulatory Orders Medication Instructions Recorded Confirmed Sertraline [Zoloft] 50 mg PO DAILY 01/14/21 08/19/21 traZODone [Desyrel] 50 mg PO QPM PRN 01/14/21 08/19/21 Ascorbic Acid [Vitamin C] 1,000 mg PO DAILY 01/15/21 08/18/21 Cetirizine [ZyrTEC] 10 mg PO DAILY 01/15/21 08/18/21 Cholecalciferol [Vitamin D3] 25 mcg PO DAILY 01/15/21 08/18/21 Furosemide [Lasix] 20 mg PO DAILY 01/15/21 08/18/21 Magnesium Oxide [Magnesium] 400 mg PO DAILY 01/15/21 08/18/21 Melatonin 10 mg PO QPM 01/15/21 08/18/21 Vitamin B Complex 1 tab PO DAILY 01/15/21 08/18/21 Vitamin E 400 unit PO DAILY 01/15/21 08/18/21 estradioL [Estrace] 2 mg PO DAILY 01/15/21 08/18/21 predniSONE [Deltasone] 15 mg PO DAILY 01/15/21 08/18/21 Albuterol 2.5 mg INH RTQ4H PRN #120 neb 01/19/21 08/18/21 Budesonide/Formoterol Fumarate 2 puffs INH BID 08/18/21 08/18/21 [Symbicort 160-4.5 Mcg Inhaler] Tiotropium [place] [Spiriva] 18 mcg INH DAILY 08/18/21 08/18/21 guaiFENesin [Mucinex] 600 mg PO BID 08/18/21 08/18/21 lisinopriL [Zestril] 5 mg PO DAILY 08/18/21 08/18/21 Potassium Chloride [Klor-Con 10] 10 meq PO DAILY 08/19/21 08/19/21 Aspirin EC [Ecotrin] 81 mg PO DAILY #0 tablet 08/27/21 Metoprolol Succinate [Toprol Xl] 12.5 mg PO DAILY #15 tablet 08/27/21 - PHYSICAL EXAM AT DISCHARGE General Appearance: positive: No acute distress, Alert, Other (Disheveled) Eyes Bilateral: positive: Normal inspection, EOMI ENT: positive: ENT inspection nml, No signs of dehydration Neck: positive: Nml inspection, No JVD Respiratory: positive: No respiratory distress, Wheezes (fine expiratory wheezes and distant breath sounds in all lung fieds posteriorly) Cardiovascular: positive: Regular rate & rhythm, No murmur Abdomen: positive: Non-tender, Nml bowel sounds, No distention Skin: positive: Warm, Dry Extremities: positive: Non-tender, No pedal edema Neurologic/Psychiatric: positive: Oriented x3 (Non-focal) - LABS Result Diagrams: 08/27/21 05:04 08/27/21 05:04 - DIAGNOSTIC IMAGING Diagnostic Imaging Results: Final report reviewed - SEPSIS Current Stage of Sepsis: Sepsis Possible source of Sepsis: Pulmonary Sepsis Criteria: Recorded Heart Rate greater than 90 bpm, Recorded Respiratory Rate greater than 20, Respiratory: Increasing oxygen requirements, WBC count greater than 12,000 or less than 4000 - FOLLOW UP Follow Up: See PCP in 1-2 weeks for a hospital follow-up visit. - TIME SPENT Time Spent in Discharge (Minutes): 50
[2021-08-27 11:39] VITALS: BP 118/63
[2021-08-29] MEDS ORDERED: FUROSEMIDE 20 MG TABLET PO SCH (10:00)
== END 2021-08-27 13:17 | disposition home health service (06) | DRG 871 ==
LOC: EDUNIT# → ED 09:36 → MS2 13:19 → ICU 08-21 07:51 → MS2 08-25 16:05
PROVIDERS: ADMIT Internal Medicine; ATTEND Internal Medicine
DX: A41.9 Sepsis, unspecified organism (principal); J96.22 Acute and chronic respiratory failure with hypercapnia; F17.200 Nicotine dependence, unspecified, uncomplicated; J18.9 Pneumonia, unspecified organism; J96.21 Acute and chronic respiratory failure with hypoxia; Z20.822 Contact with and (suspected) exposure to COVID-19; J44.0 Chronic obstructive pulmonary disease with (acute) lower respiratory infection; R00.0 Tachycardia, unspecified; F32.A Depression, unspecified; J44.1 Chronic obstructive pulmonary disease with (acute) exacerbation; G93.40 Encephalopathy, unspecified; F10.139 Alcohol abuse with withdrawal, unspecified; E87.2 Acidosis; F17.210 Nicotine dependence, cigarettes, uncomplicated; Z99.81 Dependence on supplemental oxygen; N62 Hypertrophy of breast; T38.5X5A Adverse effect of other estrogens and progestogens, initial encounter; Y92.9 Unspecified place or not applicable; K43.9 Ventral hernia without obstruction or gangrene; Z85.46 Personal history of malignant neoplasm of prostate; Z90.79 Acquired absence of other genital organ(s); I10 Essential (primary) hypertension; Z66 Do not resuscitate; I48.0 Paroxysmal atrial fibrillation; R45.1 Restlessness and agitation; G47.00 Insomnia, unspecified; R40.0 Somnolence; T42.4X5A Adverse effect of benzodiazepines, initial encounter; Y92.230 Patient room in hospital as the place of occurrence of the external cause; I95.9 Hypotension, unspecified
CPT/HCPCS: 36415; 36600; 70450; 71045; 80048; 80053; 80076; 82140; 82330; 82607; 82746; 82803; 83605; 83690; 83735; 83880; 84100; 84132; 84439; 84443; 84484; 85025; 87040; 87633; 87640; 93005; 93306; 94640; 94660; 96374; 97112; 97162; 97165; 99285; A6250; A9270; J1650; J1815; J2060; J2690; J3411; J7040; J7512

== ENCOUNTER 2021-10-04 14:37 | Outpatient (CLI) | payer MEDICARE ==
--- NOTE | 2021-10-04 15:42 | XRAY Report ---
PROCEDURE: Chest 2 View X-Ray INDICATIONS: PNEUMONIA TECHNIQUE: 2 view(s) of the chest. COMPARISON: 08/21/2021 FINDINGS: Surgical changes and devices: None. Lungs and pleura: Possible trace pleural effusion versus thickening. Pulmonary hyperinflation and rig ht upper lobe bulla. Compared to 08/21/2021, persistent decreased bibasilar opacities. Mediastinum: Mediastinal contours are normal. Heart size is normal. Bones and chest wall: No suspicious bony abnormalities. Soft tissues appear unremarkable. IMPRESSION: Decreased bibasilar opacities compared to 08/21/2021, likely infectious or inflammatory a irspace disease. Consider imaging follow-up to resolution. Emphysema and right upper lobe bulla Reviewed by: Arthur Loving MD on 10/04/2021 3:41 PM PDT Approved by: Arthur Loving MD on 10/04/2021 3:41 PM PDT Station ID: [id number]
== END 2021-10-04 14:38 | disposition home or self-care (01) ==
LOC: DI.N 14:37
PROVIDERS: ATTEND Nurse Practitioner Family
DX: J18.9 Pneumonia, unspecified organism (principal); J43.9 Emphysema, unspecified; J96.20 Acute and chronic respiratory failure, unspecified whether with hypoxia or hypercapnia; Z72.0 Tobacco use

== ENCOUNTER 2022-04-11 11:41 | Outpatient (CLI) | payer MEDICARE | END 2022-04-11 11:42 | disposition critical access hospital (66) | LOC: EMS 11:41 | DX: R06.02 Shortness of breath (principal); R11.0 Nausea; R53.1 Weakness | CPT/HCPCS: A0425; A0427 ==

== ENCOUNTER 2022-04-11 12:05 | Emergency (ER) | payer MEDICARE ==
--- NOTE | 2022-04-11 12:07 | ED Physician Documentation ---
PD HPI DYSPNEA - Stated complaint Stated Complaint: SOA - Chief complaint Chief Complaint: Resp - History obtained from History obtained from: Patient - Additional information Additional information: 66 yo M w/ pmh of copd on 2l home oxygen presents w/ several days of increasing cough and shortness of air. He states cough was productive until this AM when he felt like he wasn't getting anything else out, but needed to. No fever, chills, chest pain, abd pain, n/v/d. Has been taking regular COPD regimen and using 2L home oxygen w/o improvement. Review of Systems Constitutional: reports: Reviewed and negative Nose: reports: Reviewed and negative Cardiac: reports: Reviewed and negative Respiratory: reports: Dyspnea, Cough, Wheezing GI: reports: Reviewed and negative Musculoskeletal: reports: Reviewed and negative Neurologic: reports: Reviewed and negative Psychiatric: reports: Reviewed and negative Endocrine: reports: Reviewed and negative PD PAST MEDICAL HISTORY - Past Medical History Past Medical History: Yes Cardiovascular: None Respiratory: COPD Endocrine/Autoimmune: None GI: Other (Ventral hernia) : Other HEENT: None Psych: Depression Musculoskeletal: None Derm: None - Past Surgical History Past Surgical History: Yes 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 HEENT: Cataracts - Present Medications Home Medications: Ambulatory Orders Medication Instructions Recorded Confirmed Sertraline [Zoloft] 50 mg PO DAILY 01/14/21 08/19/21 traZODone [Desyrel] 50 mg PO QPM PRN 01/14/21 08/19/21 Ascorbic Acid [Vitamin C] 1,000 mg PO DAILY 01/15/21 08/18/21 Cetirizine [ZyrTEC] 10 mg PO DAILY 01/15/21 08/18/21 Cholecalciferol [Vitamin D3] 25 mcg PO DAILY 01/15/21 08/18/21 Furosemide [Lasix] 20 mg PO DAILY 01/15/21 08/18/21 Magnesium Oxide [Magnesium] 400 mg PO DAILY 01/15/21 08/18/21 Melatonin 10 mg PO QPM 01/15/21 08/18/21 Vitamin B Complex 1 tab PO DAILY 01/15/21 08/18/21 Vitamin E 400 unit PO DAILY 01/15/21 08/18/21 estradioL [Estrace] 2 mg PO DAILY 01/15/21 08/18/21 predniSONE [Deltasone] 15 mg PO DAILY 01/15/21 08/18/21 Albuterol 2.5 mg INH RTQ4H PRN #120 neb 01/19/21 08/18/21 Budesonide/Formoterol Fumarate 2 puffs INH BID 08/18/21 08/18/21 [Symbicort 160-4.5 Mcg Inhaler] Tiotropium [place] [Spiriva 18 mcg INH DAILY 08/18/21 08/18/21 Handihaler] guaiFENesin [Mucinex] 600 mg PO BID 08/18/21 08/18/21 lisinopriL [Zestril] 5 mg PO DAILY 08/18/21 08/18/21 Potassium Chloride [Klor-Con 10] 10 meq PO DAILY 08/19/21 08/19/21 Aspirin EC [Ecotrin] 81 mg PO DAILY #0 tablet 08/27/21 Metoprolol Succinate [Toprol Xl] 12.5 mg PO DAILY #15 tablet 08/27/21 Doxycycline [Vibramycin] 100 mg PO BID #20 tablet 04/11/22 predniSONE [Deltasone] 10 mg PO [id number] #42 tab 04/11/22 - Allergies Allergies/Adverse Reactions: Allergies Allergy/AdvReac Type Severity Reaction Status Date / Time No Known Drug Allergies Allergy Verified 04/11/22 12:13 - Social History Does the pt smoke?: Yes Smoking Status: Current every day smoker Does the pt drink ETOH?: No Does the pt have substance abuse?: No - Immunizations Immunizations are current?: Yes - POLST Patient has POLST: No POLST Status: Full Code PD ED PE NORMAL - Vitals Vital signs reviewed: Yes - General General: Alert and oriented X 3, No acute distress, Well developed/nourished - HEENT HEENT: Atraumatic, Pharynx benign - Neck Neck: Supple, no meningeal sign, No JVD - Cardiac Cardiac: RRR, No murmur, No gallop, No rub - Respiratory Respiratory: No respiratory distress, Other (wheezing, strong wet cough) - Abdomen Abdomen: Normal bowel sounds, Soft, Non tender, Non distended - Derm Derm: Normal color, Warm and dry, No rash - Extremities Extremities: No deformity, No tenderness to palpate, Normal ROM s pain, No edema, No calf tenderness / cord - Neuro Neuro: Alert and oriented X 3 Eye Opening: Spontaneous Motor: Obeys Commands Verbal: Oriented GCS Score: 15 - Psych Psych: Normal mood, Normal affect Results - Vitals Vitals: Vital Signs - 24 hr 04/11/22 04/11/22 04/11/22 12:13 12:17 12:32 Temperature 36.5 C 36.5 C Heart Rate 100 100 78 Respiratory 20 20 18 Rate Blood Pressure 138/78 H 138/78 H O2 Saturation 98 98 If not protocol 4 2 : Oxygen Flow, liters/minute 04/11/22 14:20 Temperature 36.5 C Heart Rate 76 Respiratory 18 Rate Blood Pressure 130/80 O2 Saturation 98 If not protocol : Oxygen Flow, liters/minute Oxygen O2 Source Nasal cannula Oxygen Flow Rate 2 - Labs Labs: Laboratory Tests 04/11/22 04/11/22 12:27 12:27 WBC 15.8 H RBC 4.10 L Hgb 12.0 L Hct 39.2 L MCV 95.6 H MCH 29.3 MCHC 30.6 L RDW 13.2 Plt Count 312 MPV 9.3 Neut # (Auto) 12.4 H Lymph # (Auto) 1.4 L [place] # (Auto) 1.8 H Eos # (Auto) 0.1 Baso # (Auto) 0.1 Absolute Nucleated RBC 0.00 Nucleated RBC % 0.0 Manual Slide Review Indicated RBC Morph Micro Appear 1+ ANISOCYTOSIS Sodium 138 Potassium 4.0 Chloride 88 L Carbon Dioxide 31 Anion Gap 19.0 H BUN 22 H Creatinine 0.7 Estimated GFR (MDRD) 112 Glucose 88 Calcium 9.2 PD Medical Decision Making - ED course Complexity details: reviewed old records, reviewed results, re-evaluated patient, considered differential, d/w patient ED course: This is a 66-year-old male with a history of COPD on chronic 2 L nasal cannula who presents with increasing cough, sputum production, shortness of breath. He is stable on his baseline of 2 L, no hypoxia. He does have diffuse expiratory wheezes And rhonchi on physical exam therefore was given a DuoNeb as well as 125 mg of Solu-Medrol with improvement in his symptoms. His chest x-ray shows a number of chronic changes, but does not appear to be any acute pneumonia. His white blood cell count is elevated though this is not uncommon for the patient per prior review. He has no fever or acute hypoxia. Since he is stable on his baseline oxygen and is well-appearing, I do think he is stable for outpatient management of COPD exacerbation with a course of doxycycline and prednisone which have been ordered. The patient is to continue his regular DuoNeb's and albuterol at home and we discussed return precautions in detail with the patient if new or worsening symptoms. Departure - Departure Disposition: 01 Home, Self Care Clinical Impression: COPD exacerbation Condition: Good Instructions: ED COPD Flare Prescriptions: predniSONE [Deltasone] 10 mg PO [id number] #42 tab Doxycycline [Vibramycin] 100 mg PO BID #20 tablet Comments: You Presented with an exacerbation of your chronic obstructive lung disease. I am going to discharge you on a 10-day course of antibiotics as well as a short course of steroids to help. Please continue your inhalers at home and oxygen at 2 L as needed. Please return if your symptoms worsen. Discharge Date/Time: 04/11/22 14:00
[2022-04-11] MEDS ORDERED: methylPREDNISolone SUCCINATE 125 MG/2 ML VIAL IVP STA (12:19)
[2022-04-11] MEDS ORDERED: IPRATROPIUM/ALBUTEROL 3 ML NEB INH STA (12:19)
[2022-04-11 12:33] LABS: BASOPHILS # (AUTO) 0.1 10^3/uL (0.0-0.1); BASOPHILS % (AUTO) 0.4 %; EOSINOPHILS # (AUTO) 0.1 10^3/uL (0.0-0.7); EOSINOPHILS % (AUTO) 0.4 %; HCT - HEMATOCRIT 39.2 % (42.0-52.0); LYMPHOCYTES # (AUTO) 1.4 10^3/uL (1.5-3.5); LYMPHOCYTES % (AUTO) 8.8 %; MEAN CORPUSCULAR HEMOGLOBIN 29.3 pg (27.0-31.0); MEAN CORPUSCULAR HGB CONC 30.6 g/dL (32.0-36.0); MEAN CORPUSCULAR VOLUME 95.6 fL (80.0-94.0); MEAN PLATELET VOLUME 9.3 fL (7.4-11.4); MONOCYTES # (AUTO) 1.8 10^3/uL (0.0-1.0); MONOCYTES % (AUTO) 11.4 %; NEUTROPHILS # (AUTO) 12.4 10^3/uL (1.5-6.6); NEUTROPHILS % (AUTO) 78.4 %; PLT - PLATELET COUNT 312 10^3/uL (130-450); RED CELL DISTRIBUTION WIDTH 13.2 % (12.0-15.0); WHITE BLOOD COUNT 15.8 x10^3/uL (4.8-10.8)
[2022-04-11 12:36] LABS: SLIDE REVIEW? Indicated
[2022-04-11] MEDS ORDERED: ACETAMINOPHEN 325 MG TABLET PO STA (12:36)
[2022-04-11 12:45] LABS: CALCIUM 9.2 mg/dL (8.5-10.3); CREATININE 0.7 mg/dL (0.6-1.2)
[2022-04-11 13:00] LABS: RBC MORPHOLOGY (MULTIPLE) 1+ ANISOCYTOSIS (NORMAL)
--- NOTE | 2022-04-11 13:01 | XRAY Report ---
PROCEDURE: Chest 1 View X-Ray INDICATIONS: chest pain TECHNIQUE: One view of the chest was acquired. COMPARISON: 10/04/2021 FINDINGS: Surgical changes and devices: None. Lungs and pleura: Right upper lobe bulla. Emphysema. Stable degree of right greater than left mid an d lower lung opacities. Mediastinum: Mediastinal contours appear normal. Heart size is normal. Bones and chest wall: No suspicious bony lesions. Overlying soft tissues appear unremarkable. IMPRESSION: Stable degree of right greater than left mid and lower lung opacities, possibly infectious or inflamm atory versus scarring/atelectasis. Consider future imaging surveillance. Bullous disease and emphysema again seen. . Reviewed by: Arthur Loving MD on 04/11/2022 1:00 PM PST Approved by: Arthur Loving MD on 04/11/2022 1:00 PM PST Station ID: [id number]
[2022-04-11 14:21] VITALS: BP 130/80
== END 2022-04-11 14:00 | disposition home or self-care (01) ==
LOC: EDUNIT# → ED 12:05
DX: J44.1 Chronic obstructive pulmonary disease with (acute) exacerbation (principal); Z99.81 Dependence on supplemental oxygen; F17.200 Nicotine dependence, unspecified, uncomplicated
CPT/HCPCS: 36415; 71045; 80048; 85025; 94640; 96374; 99284; A9270

== ENCOUNTER 2022-05-01 15:52 | Outpatient (CLI) | payer MEDICARE ==
[2022-05-01 20:45] LABS: BASOPHILS # (AUTO) 0.1 10^3/uL (0.0-0.1); BASOPHILS % (AUTO) 0.7 %; EOSINOPHILS # (AUTO) 0.1 10^3/uL (0.0-0.7); EOSINOPHILS % (AUTO) 0.5 %; HCT - HEMATOCRIT 37.4 % (42.0-52.0); HGB - HEMOGLOBIN 11.2 g/dL (14.0-18.0); LYMPHOCYTES # (AUTO) 0.7 10^3/uL (1.5-3.5); LYMPHOCYTES % (AUTO) 5.2 %; MEAN CORPUSCULAR HGB CONC 29.9 g/dL (32.0-36.0); MEAN CORPUSCULAR VOLUME 96.9 fL (80.0-94.0); MEAN PLATELET VOLUME 10.1 fL (7.4-11.4); MONOCYTES # (AUTO) 0.8 10^3/uL (0.0-1.0); MONOCYTES % (AUTO) 5.6 %; NEUTROPHILS % (AUTO) 87.6 %; PLT - PLATELET COUNT 438 10^3/uL (130-450); RED BLOOD COUNT 3.86 10^6/uL (4.70-6.10); RED CELL DISTRIBUTION WIDTH 14.3 % (12.0-15.0); WHITE BLOOD COUNT 13.7 x10^3/uL (4.8-10.8)
[2022-05-01 20:58] LABS: ALBUMIN 3.6 g/dL (3.2-5.5); ALBUMIN/GLOBULIN RATIO 1.2 (1.0-2.2); BILIRUBIN,TOTAL 0.7 mg/dL (0.2-1.0); CALCIUM 10.9 mg/dL (8.5-10.3); CREATININE 0.9 mg/dL (0.6-1.2); POTASSIUM 4.5 mmol/L (3.5-5.0); TOTAL PROTEIN 6.7 g/dL (6.7-8.2)
[2022-05-03 08:10] LABS: ESTRADIOL 57.4 pg/mL (7.6-42.6)
[2022-05-04 13:10] LABS: FREE TESTOSTERONE(DIRECT) 2.8 pg/mL (6.6-18.1); TESTOSTERONE <3 ng/dL (264-916)
== END 2022-05-01 15:53 | disposition home or self-care (01) ==
LOC: LAB.N 15:52
PROVIDERS: ATTEND Nurse Practitioner Family
DX: D72.829 Elevated white blood cell count, unspecified (principal); F64.9 Gender identity disorder, unspecified; C61 Malignant neoplasm of prostate
CPT/HCPCS: 36415; 80053; 82670; 84153; 84402; 84403; 85025

== ENCOUNTER 2022-05-22 15:13 | Outpatient (CLI) | payer MEDICARE ==
[2022-05-22 17:54] LABS: BASOPHILS % (AUTO) 0.9 %; EOSINOPHILS % (AUTO) 1.4 %; HCT - HEMATOCRIT 36.5 % (42.0-52.0); HGB - HEMOGLOBIN 11.2 g/dL (14.0-18.0); LYMPHOCYTES % (AUTO) 16.4 %; MEAN CORPUSCULAR HEMOGLOBIN 28.7 pg (27.0-31.0); MEAN CORPUSCULAR HGB CONC 30.7 g/dL (32.0-36.0); MEAN CORPUSCULAR VOLUME 93.6 fL (80.0-94.0); MEAN PLATELET VOLUME 9.7 fL (7.4-11.4); MONOCYTES % (AUTO) 13.6 %; NEUTROPHILS % (AUTO) 67.4 %; PLT - PLATELET COUNT 480 10^3/uL (130-450); RED CELL DISTRIBUTION WIDTH 13.6 % (12.0-15.0); WHITE BLOOD COUNT 14.4 x10^3/uL (4.8-10.8)
[2022-05-22 17:56] LABS: ABNORMAL LYMPHS % (MANUAL) 0 %
[2022-05-22 18:22] LABS: ALBUMIN 3.8 g/dL (3.2-5.5); ALBUMIN/GLOBULIN RATIO 1.4 (1.0-2.2); BILIRUBIN,TOTAL 0.5 mg/dL (0.2-1.0); CALCIUM 8.9 mg/dL (8.5-10.3); CREATININE 1.1 mg/dL (0.6-1.2); POTASSIUM 3.6 mmol/L (3.5-5.0); TOTAL PROTEIN 6.6 g/dL (6.7-8.2)
[2022-05-22 18:34] LABS: FOLATE 12.53 ng/mL (5.90 - >24.8)
[2022-05-22 18:44] LABS: BAND NEUTROPHILS % (MANUAL) 2 %; DIFFERENTIAL COMMENT MANUAL DIFFERENTIAL; EOSINOPHILS # (MANUAL) 0.3 10^3/uL (0-0.7); LYMPHOCYTES # (MANUAL) 1.9 10^3/uL (1.5-3.5); LYMPHOCYTES % (MANUAL) 13 %; MONOCYTES # (MANUAL) 1.7 10^3/uL (0.0-1.0); NEUTROPHILS # (MANUAL) 10.5 10^3/uL (1.5-6.6); PLATELET ESTIMATE, MANUAL INCREASED (>450,000) (NORMAL); PLATELET MORPHOLOGY NORMAL APPEARANCE (NORMAL); RBC MORPHOLOGY (MULTIPLE) NORMAL APPEARANCE (NORMAL)
== END 2022-05-22 15:14 | disposition home or self-care (01) ==
LOC: LAB.N 15:13
PROVIDERS: ATTEND Nurse Practitioner Family
DX: E83.52 Hypercalcemia (principal); D50.9 Iron deficiency anemia, unspecified
CPT/HCPCS: 36415; 80053; 82607; 82728; 82746; 83540; 83970; 84466; 85025

== ENCOUNTER 2022-08-02 15:26 | Outpatient (CLI) | payer MEDICARE ==
[2022-08-02 17:48] LABS: BASOPHILS # (AUTO) 0.1 10^3/uL (0.0-0.1); BASOPHILS % (AUTO) 0.7 %; EOSINOPHILS % (AUTO) 0.2 %; HCT - HEMATOCRIT 35.9 % (42.0-52.0); HGB - HEMOGLOBIN 11.2 g/dL (14.0-18.0); LYMPHOCYTES % (AUTO) 5.9 %; MEAN CORPUSCULAR HEMOGLOBIN 28.4 pg (27.0-31.0); MEAN CORPUSCULAR HGB CONC 31.2 g/dL (32.0-36.0); MEAN CORPUSCULAR VOLUME 90.9 fL (80.0-94.0); MONOCYTES # (AUTO) 1.1 10^3/uL (0.0-1.0); MONOCYTES % (AUTO) 6.6 %; NEUTROPHILS % (AUTO) 86.1 %; PLT - PLATELET COUNT 478 10^3/uL (130-450); RED BLOOD COUNT 3.95 10^6/uL (4.70-6.10); RED CELL DISTRIBUTION WIDTH 14.8 % (12.0-15.0); WHITE BLOOD COUNT 16.3 x10^3/uL (4.8-10.8)
[2022-08-02 18:14] LABS: % IRON SATURATION 20 % (20-50); IRON 81 ug/dL (45-182); TOTAL IRON BINDING CAPACITY 403 ug/dL (250-450); TRANSFERRIN 288 mg/dL (180-329)
== END 2022-08-02 15:27 | disposition home or self-care (01) ==
LOC: LAB.N 15:26
PROVIDERS: ATTEND Nurse Practitioner Family
DX: D50.9 Iron deficiency anemia, unspecified (principal)
CPT/HCPCS: 36415; 82728; 83540; 84466; 85025

== ENCOUNTER 2022-11-24 15:06 | Outpatient (CLI) | payer MEDICARE ==
[2022-11-24 17:57] LABS: BASOPHILS # (AUTO) 0.1 10^3/uL (0.0-0.1); BASOPHILS % (AUTO) 0.7 %; EOSINOPHILS % (AUTO) 0.2 %; HGB - HEMOGLOBIN 12.5 g/dL (14.0-18.0); LYMPHOCYTES % (AUTO) 7.1 %; MEAN CORPUSCULAR HEMOGLOBIN 29.1 pg (27.0-31.0); MEAN CORPUSCULAR HGB CONC 31.3 g/dL (32.0-36.0); MEAN PLATELET VOLUME 10.6 fL (7.4-11.4); MONOCYTES # (AUTO) 0.9 10^3/uL (0.0-1.0); MONOCYTES % (AUTO) 6.5 %; PLT - PLATELET COUNT 431 10^3/uL (130-450); RED CELL DISTRIBUTION WIDTH 16.5 % (12.0-15.0); WHITE BLOOD COUNT 14.2 x10^3/uL (4.8-10.8)
[2022-11-24 18:53] LABS: ALBUMIN 4.3 g/dL (3.2-5.5); ALBUMIN/GLOBULIN RATIO 1.9 (1.0-2.2); BILIRUBIN,TOTAL 0.4 mg/dL (0.2-1.0); CALCIUM 9.8 mg/dL (8.5-10.3); CREATININE 1.1 mg/dL (0.6-1.3); TOTAL PROTEIN 6.6 g/dL (6.4-8.9)
[2022-11-24 19:17] LABS: FERRITIN 31.6 ng/mL (23.9-336.2)
== END 2022-11-24 15:07 | disposition home or self-care (01) ==
LOC: LAB.N 15:06
PROVIDERS: ATTEND Nurse Practitioner Family
DX: D72.829 Elevated white blood cell count, unspecified (principal); D50.9 Iron deficiency anemia, unspecified; E83.52 Hypercalcemia
CPT/HCPCS: 36415; 80053; 82728; 83540; 84466; 85025

== ENCOUNTER 2023-04-02 16:22 | Outpatient (CLI) | payer MEDICARE | END 2023-04-02 16:23 | disposition critical access hospital (66) | LOC: EMS 16:22 | DX: R41.0 Disorientation, unspecified (principal); R05.9 Cough, unspecified; R06.02 Shortness of breath; R09.89 Other specified symptoms and signs involving the circulatory and respiratory systems | CPT/HCPCS: A0425; A0429 ==

== ENCOUNTER 2023-04-02 16:46 | Inpatient (IN) | payer MEDICARE ==
--- NOTE | 2023-04-02 16:53 | ED Physician Documentation ---
PD HPI DYSPNEA - Stated complaint Stated Complaint: cough - Chief complaint Chief Complaint: Resp - History obtained from History obtained from: Patient, EMS - Additional information Additional information: 67-year-old gentleman history of COPD. Usually on 2 L of oxygen. He has been sick with productive cough for 3 days and reportedly the daughter found him less responsive than usual tonight. At that time he was noted to be hypoxic by EMS into the 80s, but reportedly his oxygen concentrator was at a lower setting than usual at that time. They increased his oxygen and his mental status became back to normal. He was noted to be drinking alcohol but not reportedly since last night along with this. Blood sugar and other vital signs prehospital were unremarkable. He complains of productive cough and shortness of breath. He denies any chest pain or other pain complaints. He has a large ventral hernia which she says is not any different than usual. 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 HEENT: Cataracts - Present Medications Home Medications: Ambulatory Orders Medication Instructions Recorded Confirmed Sertraline [Zoloft] 50 mg PO DAILY 01/14/21 08/19/21 traZODone [Desyrel] 50 mg PO QPM PRN 01/14/21 08/19/21 Ascorbic Acid [Vitamin C] 1,000 mg PO DAILY 01/15/21 08/18/21 Cetirizine [ZyrTEC] 10 mg PO DAILY 01/15/21 08/18/21 Cholecalciferol [Vitamin D3] 25 mcg PO DAILY 01/15/21 08/18/21 Furosemide [Lasix] 20 mg PO DAILY 01/15/21 08/18/21 Magnesium Oxide [Magnesium] 400 mg PO DAILY 01/15/21 08/18/21 Melatonin 10 mg PO QPM 01/15/21 08/18/21 Vitamin B Complex 1 tab PO DAILY 01/15/21 08/18/21 Vitamin E 400 unit PO DAILY 01/15/21 08/18/21 estradioL [Estrace] 2 mg PO DAILY 01/15/21 08/18/21 predniSONE [Deltasone] 15 mg PO DAILY 01/15/21 08/18/21 Albuterol 2.5 mg INH RTQ4H PRN #120 neb 01/19/21 08/18/21 Budesonide/Formoterol Fumarate 2 puffs INH BID 08/18/21 08/18/21 [Symbicort 160-4.5 Mcg Inhaler] Tiotropium [place] [Spiriva 18 mcg INH DAILY 08/18/21 08/18/21 Handihaler] guaiFENesin [Mucinex] 600 mg PO BID 08/18/21 08/18/21 lisinopriL [Zestril] 5 mg PO DAILY 08/18/21 08/18/21 Potassium Chloride [Klor-Con 10] 10 meq PO DAILY 08/19/21 08/19/21 Aspirin EC [Ecotrin] 81 mg PO DAILY #0 tablet 08/27/21 Metoprolol Succinate [Toprol Xl] 12.5 mg PO DAILY #15 tablet 08/27/21 Doxycycline [Vibramycin] 100 mg PO BID #20 tablet 04/11/22 predniSONE [Deltasone] 10 mg PO [id number] #42 tab 04/11/22 - Allergies Allergies/Adverse Reactions: Allergies Allergy/AdvReac Type Severity Reaction Status Date / Time No Known Drug Allergies Allergy Verified 04/02/23 16:52 - Social History Does the pt smoke?: Yes Smoking Status: Current every day smoker Does the pt drink ETOH?: No Does the pt have substance abuse?: No - Immunizations Immunizations are current?: Yes - POLST Patient has POLST: No POLST Status: Full Code PD ED PE NORMAL - Vitals Vital signs reviewed: Yes - General General: Alert and oriented X 3, Other (Frequent wet coughing) - HEENT HEENT: PERRL, EOMI - Neck Neck: Supple, no meningeal sign, No bony TTP - Cardiac Cardiac: RRR, No murmur - Respiratory Respiratory: No respiratory distress, Other (Diminished breath sounds throughout especially at the right base with rhonchi at both bases.) - Abdomen Abdomen: Non tender (With large ventral hernia that is soft and easily reducible but pops right back out.) - Extremities Extremities: No edema, No calf tenderness / cord - Neuro Neuro: Alert and oriented X 3 Eye Opening: Spontaneous Motor: Obeys Commands Verbal: Oriented GCS Score: 15 - Psych Psych: Normal mood, Normal affect Results - Vitals Vitals: Vital Signs - 24 hr 04/02/23 04/02/23 04/02/23 16:52 17:13 17:34 Temperature 36.6 C Heart Rate 105 H 97 98 Respiratory 24 21 18 Rate Blood Pressure 131/62 H O2 Saturation 84 L 95 If not protocol 2 : Oxygen Flow, liters/minute 04/02/23 04/02/23 04/02/23 18:00 18:01 18:02 Temperature Heart Rate 98 97 96 Respiratory 19 20 Rate Blood Pressure 131/66 H 131/66 H O2 Saturation 97 97 If not protocol : Oxygen Flow, liters/minute 04/02/23 04/02/23 04/02/23 19:00 20:00 21:33 Temperature 36.3 C L Heart Rate 94 91 90 Respiratory 25 H 26 H 28 H Rate Blood Pressure 123/75 125/73 143/78 H O2 Saturation 98 97 If not protocol : Oxygen Flow, liters/minute 04/02/23 22:00 Temperature Heart Rate 89 Respiratory 24 Rate Blood Pressure 123/68 O2 Saturation 92 If not protocol : Oxygen Flow, liters/minute Oxygen O2 Source BIPAP Oxygen Flow Rate 2 - EKG (time done) 1707 EKG releavant findings:: EKG personally interpreted by author of this note. Relevant findings are: Rate: Rate (enter#) (101) Rhythm: Sinus tachycardia (w pacs) [place]: Normal Intervals: RBBB QRS: Normal Ischemia: Non specific changes. No: ST elevation c/w ischemia Computer interpretation: Agree with computer - Labs Labs: Microbiology 04/02/23 19:30 Respiratory Culture - Preliminary Sputum Laboratory Tests 04/02/23 04/02/23 04/02/23 17:00 17:00 17:00 WBC 23.2 H RBC 3.69 L Hgb 11.1 L Hct 34.5 L MCV 93.5 MCH 30.1 MCHC 32.2 RDW 13.1 Plt Count 506 H MPV 9.0 Neut # (Auto) Not Reportable Lymph # (Auto) Not Reportable [place] # (Auto) Not Reportable Eos # (Auto) Not Reportable Baso # (Auto) Not Reportable Absolute Nucleated RBC Not Reportable Total Counted 100 Band Neuts % (Manual) 9 Abnorm Lymph % (Manual) 0 Nucleated RBC % Not Reportable Neutrophils # (Manual) 16.2 H Lymphocytes # (Manual) 3.7 H Monocytes # (Manual) 3.2 H Eosinophils # (Manual) 0.0 Basophils # (Manual) 0.0 Differential Comment MANUAL DIFFERENTIAL Platelet Morphology 1+ GIANT PLATELETS RBC Morph Micro Appear NORMAL APPEARANCE VBG pH 7.249 L VBG pCO2 79.0 H VBG pO2 35.8 VBG HCO3 33.8 H VBG Total CO2 36.2 H VBG O2 Saturation 65.1 VBG Base Excess 4.3 H Sodium 125 L Potassium 4.9 H Chloride 83 L Carbon Dioxide 37 H Anion Gap 5.0 L BUN 23 H Creatinine 0.7 Estimated GFR (MDRD) 112 Glucose 127 H Lactic Acid Calcium 9.3 Phosphorus 4.4 Magnesium 1.9 Total Bilirubin 0.3 AST 13 ALT 15 Alkaline Phosphatase 66 Total Protein 6.9 Albumin 3.7 Globulin 3.2 Albumin/Globulin Ratio 1.2 Nasal Adenovirus (PCR) Nasal B. parapertussis DNA (PCR) Nasal Coronavir 229E PCR Nasal Coronavir HKU1 PCR Nasal Coronavir NL63 PCR Nasal Coronavir OC43 PCR Nasal Enterovir/Rhinovir PCR Nasal Influenza B PCR Nasal Influenza A PCR Nasal Parainfluen 1 PCR Nasal Parainfluen 2 PCR Nasal Parainfluen 3 PCR Nasal Parainfluen 4 PCR Nasal RSV (PCR) Nasal B.pertussis DNA PCR Nasal C.pneumoniae (PCR) [place] Human Metapneumo PCR Nasal M.pneumoniae (PCR) Nasal SARS-CoV-2 (PCR) Ethyl Alcohol < 10.0 04/02/23 04/02/23 04/02/23 17:00 17:07 20:58 WBC RBC Hgb Hct MCV MCH MCHC RDW Plt Count MPV Neut # (Auto) Lymph # (Auto) [place] # (Auto) Eos # (Auto) Baso # (Auto) Absolute Nucleated RBC Total Counted Band Neuts % (Manual) Abnorm Lymph % (Manual) Nucleated RBC % Neutrophils # (Manual) Lymphocytes # (Manual) Monocytes # (Manual) Eosinophils # (Manual) Basophils # (Manual) Differential Comment Platelet Morphology RBC Morph Micro Appear VBG pH 7.321 VBG pCO2 73.2 H VBG pO2 28.0 VBG HCO3 37.0 H VBG Total CO2 39.2 H VBG O2 Saturation 55.0 L VBG Base Excess 8.3 H Sodium Potassium Chloride Carbon Dioxide Anion Gap BUN Creatinine Estimated GFR (MDRD) Glucose Lactic Acid 0.5 Calcium Phosphorus Magnesium Total Bilirubin AST ALT Alkaline Phosphatase Total Protein Albumin Globulin Albumin/Globulin Ratio Nasal Adenovirus (PCR) NOT DETECTED Nasal B. parapertussis DNA (PCR) NOT DETECTED Nasal Coronavir 229E PCR NOT DETECTED Nasal Coronavir HKU1 PCR NOT DETECTED Nasal Coronavir NL63 PCR NOT DETECTED Nasal Coronavir OC43 PCR NOT DETECTED Nasal Enterovir/Rhinovir PCR NOT DETECTED Nasal Influenza B PCR NOT DETECTED Nasal Influenza A PCR NOT DETECTED Nasal Parainfluen 1 PCR NOT DETECTED Nasal Parainfluen 2 PCR NOT DETECTED Nasal Parainfluen 3 PCR NOT DETECTED Nasal Parainfluen 4 PCR NOT DETECTED Nasal RSV (PCR) NOT DETECTED Nasal B.pertussis DNA PCR NOT DETECTED Nasal C.pneumoniae (PCR) NOT DETECTED [place] Human Metapneumo PCR NOT DETECTED Nasal M.pneumoniae (PCR) NOT DETECTED Nasal SARS-CoV-2 (PCR) NOT DETECTED Ethyl Alcohol PD Medical Decision Making - ED course ED course: 67-year-old gentleman COPD presents with altered mental status and respiratory complaints after 3-day illness. His white count is quite elevated, and he is mildly anemic. Blood gas showing respiratory alkalosis with CO2 retention probably acute on chronic and CMP showing a new hyponatremia with alkalosis. He was COVID-negative and his chest x-ray was clear. He was cultured up and given antibiotics, steroids, nebs. He was started on BiPAP, and it was clear he needed admission. We discontinued the BiPAP to see how we would do as we do not have any ICU beds. He became more obtunded consistent with CO2 narcosis and the BiPAP was restarted and transfer process was initiated. After restarting BiPAP he did come more arousable and of a lot more coughing. We are able to obtain a sputum sample. I will repeat the VBG and the nurse tells me he is starting to get shaky and there is a concern for alcohol withdrawal so he was given 2 mg of IV Ativan. I put in for the boarding order set as it looks like transfer will not be imminent or even soon as all of the local hospitals are full. Care to overnight EDMD at 10 PM shift change. - Critical Care Time(min): 45 Time Includes: Direct patient care, Review records, Reassess patient, Document care, Coordinate care Data interpretation: Labs, Pulse ox, ABG Procedures included in critical care time: Peripheral IV Procedures excluded from critical care time: EKG Departure - Departure Disposition: 02 Transfer Acute Care Hosp Clinical Impression: Acute on chronic respiratory failure with hypoxia, COPD exacerbation, CO2 narcosis Condition: Critical Forms: PCP List
[2023-04-02] MEDS: IPRATROPIUM/ALBUTEROL 3 ML NEB INH STA (17:10)
[2023-04-02 17:14] LABS: BASOPHILS % (AUTO) 0.3 %; EOSINOPHILS % (AUTO) 0.2 %; HCT - HEMATOCRIT 34.5 % (42.0-52.0); HGB - HEMOGLOBIN 11.1 g/dL (14.0-18.0); LYMPHOCYTES % (AUTO) 6.5 %; MEAN CORPUSCULAR HEMOGLOBIN 30.1 pg (27.0-31.0); MEAN CORPUSCULAR HGB CONC 32.2 g/dL (32.0-36.0); MEAN CORPUSCULAR VOLUME 93.5 fL (80.0-94.0); MONOCYTES % (AUTO) 11.3 %; NEUTROPHILS % (AUTO) 76.6 %; PLT - PLATELET COUNT 506 10^3/uL (130-450); RED BLOOD COUNT 3.69 10^6/uL (4.70-6.10); RED CELL DISTRIBUTION WIDTH 13.1 % (12.0-15.0); WHITE BLOOD COUNT 23.2 x10^3/uL (4.8-10.8)
[2023-04-02 17:16] LABS: ABNORMAL LYMPHS % (MANUAL) 0 %
[2023-04-02 17:18] LABS: VBG HCO3 33.8 mmol/L (23-28); VBG PH 7.249 (7.31-7.41); VBG PO2 35.8 mmHg (25-47)
[2023-04-02 17:19] LABS: VBG BASE EXCESS 4.3 mmol/L (-2 - +2); VBG OXYGEN SATURATION 65.1 % (60-80); VBG TOTAL CO2 36.2 mmol/L (24-29)
[2023-04-02 17:31] LABS: ALBUMIN 3.7 g/dL (3.2-5.5); ALBUMIN/GLOBULIN RATIO 1.2 (1.0-2.2); ALKALINE PHOSPHATASE 66 IU/L (42-121); ALT ALANINE AMINOTRANSFERASE 15 IU/L (10-60); AST ASPARTATE AMINOTRANSFERASE 13 IU/L (10-42); BILIRUBIN,TOTAL 0.3 mg/dL (0.2-1.0); BUN - BLOOD UREA NITROGEN 23 mg/dL (6-20); CALCIUM 9.3 mg/dL (8.5-10.3); CARBON DIOXIDE - CO2 37 mmol/L (21-32); CHLORIDE 83 mmol/L (101-111); CREATININE 0.7 mg/dL (0.6-1.3); ETOH - ETHANOL < 10.0 mg/dL; GFR - MDRD 112 (>89); GLUCOSE 127 mg/dL (74-104); MAGNESIUM 1.9 mg/dL (1.7-2.3); PHOSPHORUS 4.4 mg/dL (2.5-5.0); POTASSIUM 4.9 mmol/L (3.5-4.5); SODIUM 125 mmol/L (135-145); TOTAL PROTEIN 6.9 g/dL (6.4-8.9)
[2023-04-02 17:42] LABS: BAND NEUTROPHILS % (MANUAL) 9 %; DIFFERENTIAL COMMENT MANUAL DIFFERENTIAL; LYMPHOCYTES # (MANUAL) 3.7 10^3/uL (1.5-3.5); LYMPHOCYTES % (MANUAL) 16 %; MONOCYTES # (MANUAL) 3.2 10^3/uL (0.0-1.0); NEUTROPHILS # (MANUAL) 16.2 10^3/uL (1.5-6.6); PLATELET MORPHOLOGY 1+ GIANT PLATELETS (NORMAL); RBC MORPHOLOGY (MULTIPLE) NORMAL APPEARANCE (NORMAL)
[2023-04-02] MEDS: methylPREDNISolone SUCCINATE 125 MG/2 ML VIAL IVP STA (17:43)
[2023-04-02] MEDS: AZITHROMYCIN INJ 500 MG in SODIUM CHLORIDE 0.9% 250 ML IV STA (17:45)
[2023-04-02] MEDS: cefTRIAXone 1 GM VIAL IVP STA (17:45)
--- NOTE | 2023-04-02 17:52 | XRAY Report ---
PROCEDURE: Chest 1V INDICATIONS: cough TECHNIQUE: One view of the chest was acquired. COMPARISON: 04/11/2022 FINDINGS: Surgical changes and devices: None. Lungs and pleura: Bilateral mid and lower lung mixed interstitial and alveolar opacities. Biapical b ullous emphysema, right worse than left. No acute consolidation, effusion, or pneumothorax. Mediastinum: Mediastinal contours appear normal. Heart size is normal. Bones and chest wall: No suspicious bony lesions. Overlying soft tissues appear unremarkable. IMPRESSION: Chronic and stable appearing emphysema and interstitial lung disease. No definite acute changes. Reviewed by: Dawna Gonzalez MD on 04/02/2023 5:51 PM PST Approved by: Dawna Gonzalez MD on 04/02/2023 5:51 PM PST Station ID: [id number]
[2023-04-02 18:03] LABS: CORONAVIRUS 229E-RESP PCR NOT DETECTED; CORONAVIRUS HKU1-RESP PCR NOT DETECTED; CORONAVIRUS NL63-RESP PCR NOT DETECTED; CORONAVIRUS OC43-RESP PCR NOT DETECTED
[2023-04-02 18:04] LABS: B. PARAPERTUSSIS- RESP PCR PAN NOT DETECTED; B. PERTUSSIS- RESP PCR PANEL NOT DETECTED; C. PNEUMONIAE- RESP PCR PANEL NOT DETECTED; HUMAN METAPNEUMOVIRUS NOT DETECTED; INFLUENZA A- RESP PCR PANEL NOT DETECTED; INFLUENZA B - RESP PCR PANEL NOT DETECTED; M. PNEUMONIAE- RESP PCR PANEL NOT DETECTED; PARAINFLUENZA VIRUS 1 NOT DETECTED; PARAINFLUENZA VIRUS 2 NOT DETECTED; PARAINFLUENZA VIRUS 3 NOT DETECTED; PARAINFLUENZA VIRUS 4 NOT DETECTED; RHINOVIRUS/ENTEROVIRUS NOT DETECTED; RSV- RESP PCR PANEL NOT DETECTED; SARS-CoV-2 -RESP PCR PANEL NOT DETECTED
[2023-04-02 21:04] LABS: VBG PH 7.321 (7.31-7.41)
[2023-04-02 21:05] LABS: VBG BASE EXCESS 8.3 mmol/L (-2 - +2); VBG PCO2 73.2 mmHg (41-51); VBG TOTAL CO2 39.2 mmol/L (24-29)
[2023-04-02] MEDS ORDERED: ACETAMINOPHEN 500 MG TABLET PO PRN (21:16)
[2023-04-02] MEDS ORDERED: IPRATROPIUM/ALBUTEROL 3 ML NEB INH PRN (21:17)
[2023-04-02] MEDS: LORazepam 2 MG/ML VIAL IVP STA (21:24)
[2023-04-02] MEDS: SODIUM CHLORIDE 0.9% 1,000 ML IV STA (21:24)
[2023-04-02] MEDS: methylPREDNISolone SUCCINATE 40 MG/ML VIAL IVP SCH (22:28)
[2023-04-03] MEDS: LORazepam 2 MG/ML VIAL IVP STA (01:20)
[2023-04-03] MEDS ORDERED: ALBUTEROL NEB 2.5 MG/3 ML INH PRN (03:29)
[2023-04-03] MEDS ORDERED: BENZONATATE 100 MG CAPSULE PO PRN (03:53)
--- NOTE | 2023-04-03 04:09 | ED Physician Documentation ---
ED Addendum - Addendum Addendum: 04/03/23 04:04 67-year-old Francisco Ruiz is left in my care at shift change with a history of respiratory failure. We have been looking for an ICU been at any [facility] as our beds were not available. He has a history of COPD that is oxygen dependent and he appears to present to the emergency department today with CO2 retention and narcosis. He improved with use of BiPAP and he has been treated with antibiotic and steroid as well. Today he does have hyponatremia as well. He developed some alcohol withdrawal earlier in the day was treated with 2 mg of IV Ativan which helped subsequently during my shift he required a milligram of Ativan IV and he had continued improvement and stabilization. A bed became available in our intensive care unit and our hospitalist Dr. Luis Mathew was consulted in the care of the patient and will write orders for admission to the ICU. Impression: CO2 narcosis, exacerbation of COPD, Acute on chronic respiratory failure with hypoxia, acute alcohol withdrawal syndrome Plan: Patient treated in the emergency department on BiPAP stabilized and transferred to the intensive care unit here. 04/03/23 04:09 04/03/23 04:11 04/03/23 04:12
[2023-04-03] MEDS ORDERED: iohexoL-300 100 ML VIAL ONE (04:24)
[2023-04-03] MEDS ORDERED: THIAMINE 100 MG/1 ML 2 ML MDV ONE ×2 (04:25→08:13)
[2023-04-03] MEDS ORDERED: MAGNESIUM SULFATE 1 GM/2 ML VIAL ONE (04:25)
--- NOTE | 2023-04-03 05:26 | HISTORY & PHYSICAL EXAMINATION ---
Chief Complaint - Chief Complaint Chief Complaint: sob, weakness, cough History of Present Illness - History of Present Illness HPI Comment/Other: details obtained from discussion with ed provider and review of ed chart d/t cart connection issues. pt with sob + cough and weakness over last 3 days. h/o copd. pt apparently has been more confused and tired. EMS was notified by daughter, and they noted his O2 on NC was 80s. he is normally on 2L NC at home, but when they increased his oxygen, he became more alert. he has been drinking lately, but no drink in last 24 hours. no chest pain reported. 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 His father from alcoholism. Living Situation: With family Social History Notes: He lives at home with his daughter. He smokes a pack a day and has been doing so for 50+ years. He drinks a pint of alcohol a day - POLST Patient has POLST: No POLST Status: Full Code Meds/Allgy - Home Medications Home Medications: Ambulatory Orders Medication Instructions Recorded Confirmed Sertraline [Zoloft] 50 mg PO DAILY 01/14/21 08/19/21 traZODone [Desyrel] 50 mg PO QPM PRN 01/14/21 08/19/21 Ascorbic Acid [Vitamin C] 1,000 mg PO DAILY 01/15/21 08/18/21 Cetirizine [ZyrTEC] 10 mg PO DAILY 01/15/21 08/18/21 Cholecalciferol [Vitamin D3] 25 mcg PO DAILY 01/15/21 08/18/21 Furosemide [Lasix] 20 mg PO DAILY 01/15/21 08/18/21 Magnesium Oxide [Magnesium] 400 mg PO DAILY 01/15/21 08/18/21 Melatonin 10 mg PO QPM 01/15/21 08/18/21 Vitamin B Complex 1 tab PO DAILY 01/15/21 08/18/21 Vitamin E 400 unit PO DAILY 01/15/21 08/18/21 estradioL [Estrace] 2 mg PO DAILY 01/15/21 08/18/21 predniSONE [Deltasone] 15 mg PO DAILY 01/15/21 08/18/21 Albuterol 2.5 mg INH RTQ4H PRN #120 neb 01/19/21 08/18/21 Budesonide/Formoterol Fumarate 2 puffs INH BID 08/18/21 08/18/21 [Symbicort 160-4.5 Mcg Inhaler] Tiotropium [place] [Spiriva 18 mcg INH DAILY 08/18/21 08/18/21 Handihaler] guaiFENesin [Mucinex] 600 mg PO BID 08/18/21 08/18/21 lisinopriL [Zestril] 5 mg PO DAILY 08/18/21 08/18/21 Potassium Chloride [Klor-Con 10] 10 meq PO DAILY 08/19/21 08/19/21 Aspirin EC [Ecotrin] 81 mg PO DAILY #0 tablet 08/27/21 Metoprolol Succinate [Toprol Xl] 12.5 mg PO DAILY #15 tablet 08/27/21 Doxycycline [Vibramycin] 100 mg PO BID #20 tablet 04/11/22 predniSONE [Deltasone] 10 mg PO [id number] #42 tab 04/11/22 - Allergies Allergies/Adverse Reactions: Allergies Allergy/AdvReac Type Severity Reaction Status Date / Time No Known Drug Allergies Allergy Verified 04/02/23 16:52 Review of Systems - Other Findings Other Findings: per ed charting unable to do video evaluation d/t IT cart connection issues Exam - Vital Signs Vital Signs: Vital Signs x48h Pulse Resp BP Pulse Ox O2 Flow Rate 04/03/23 01:35 89 04/03/23 01:00 84 29 H 119/63 93 04/03/23 00:38 94 30 H 132/84 H 95 04/02/23 23:27 101 H 21 129/73 95 04/02/23 23:26 98 19 131/66 H 97 3 04/02/23 22:49 85 04/02/23 22:00 89 24 123/68 92 04/02/23 21:33 90 28 H 143/78 H 97 - Physical Exam Comments/Other: per ed charting. unable to do video exam d/t IT cart connection issues Conclusion/Plan - Lab Results Fish Bones: 04/03/23 05:24 04/03/23 05:24 - Other Other Results/Comments: pt with - - toxic, metabolic encephalopathy in setting of copd exacerbation, hypoNa, pna (below) check ammonia much improved in ER s/p bipap, and pt has no focal neuro deficits will check head CT - acute, hypoxemic resp failure in setting of acute copd exacerbation + pna resp viral panel NEG nebs, o2, prednisone, rocephin, azithromycin - pna in setting of and contributory to above rocephin, azithromycin monitor resp labs, cultures - hyponatremia in setting of and contributory to above likely in setting of etoh abuse + potomania continue IVF, monitoring - thrombocytosis likely acute inflammatory reaction and in setting of copd on lovenox check CTA chest to assess for PE - etoh abuse + withdrawal ciwa protocol ativan prn, mvi, ivf, supportive care f/u labs, cultures, replete electrolytes further orders per clinical course
[2023-04-03] MEDS: LACTATED RINGERS 1,000 ML IV SCH (05:29)
[2023-04-03] MEDS: SODIUM CHLORIDE FLUSH 0.9% 10 ML SYRINGE IVP PRN (05:32)
[2023-04-03 05:54] LABS: BASOPHILS % (AUTO) 0.4 %; HCT - HEMATOCRIT 35.4 % (42.0-52.0); HGB - HEMOGLOBIN 11.3 g/dL (14.0-18.0); LYMPHOCYTES % (AUTO) 4.8 %; MEAN CORPUSCULAR HEMOGLOBIN 30.3 pg (27.0-31.0); MEAN CORPUSCULAR HGB CONC 31.9 g/dL (32.0-36.0); MEAN CORPUSCULAR VOLUME 94.9 fL (80.0-94.0); MEAN PLATELET VOLUME 9.6 fL (7.4-11.4); MONOCYTES % (AUTO) 4.5 %; NEUTROPHILS % (AUTO) 83.7 %; PLT - PLATELET COUNT 548 10^3/uL (130-450); RED BLOOD COUNT 3.73 10^6/uL (4.70-6.10); RED CELL DISTRIBUTION WIDTH 13.2 % (12.0-15.0); WHITE BLOOD COUNT 21.6 x10^3/uL (4.8-10.8)
[2023-04-03 05:59] LABS: CALCIUM, IONIZED 1.16 mmol/L (1.15-1.33); VBG PH 7.263 (7.31-7.41)
[2023-04-03 06:00] LABS: VBG BASE EXCESS 2.8 mmol/L (-2 - +2); VBG HCO3 31.7 mmol/L (23-28); VBG OXYGEN SATURATION 87.8 % (60-80); VBG PCO2 71.7 mmHg (41-51); VBG PH 7.263 (7.31-7.41); VBG PO2 56.5 mmHg (25-47); VBG TOTAL CO2 33.9 mmol/L (24-29)
[2023-04-03] MEDS: iohexoL-300 100 ML VIAL IVP ONE (06:03)
[2023-04-03 06:13] LABS: ALBUMIN 3.6 g/dL (3.2-5.5); ALBUMIN/GLOBULIN RATIO 1.2 (1.0-2.2); BILIRUBIN,TOTAL 0.3 mg/dL (0.2-1.0); CREATININE 0.8 mg/dL (0.6-1.3); MAGNESIUM 2.1 mg/dL (1.7-2.3); PHOSPHORUS 4.3 mg/dL (2.5-5.0); POTASSIUM 5.1 mmol/L (3.5-4.5); TOTAL PROTEIN 6.6 g/dL (6.4-8.9)
[2023-04-03 06:14] LABS: CHOL/HDL RATIO 2.6 (<5.0); CHOLESTEROL 179 mg/dL; HDL CHOLESTEROL 69 mg/dL; LDL CHOLESTEROL,CALCULATED 88 mg/dL; LDL/HDL RATIO 1.3 (<3.6); TRIGLYCERIDES 108 mg/dL (48-352); VLDL CHOLESTEROL 22 mg/dL
[2023-04-03 06:19] LABS: ABNORMAL LYMPHS % (MANUAL) 0 %
[2023-04-03 06:27] LABS: THYROID STIMULATING HORMONE 0.54 uIU/mL (0.34-5.60)
[2023-04-03] MEDS: PANTOPRAZOLE 40 MG TABLET PO SCH (06:29)
[2023-04-03 06:50] LABS: BAND NEUTROPHILS % (MANUAL) 8 %; DIFFERENTIAL COMMENT MANUAL DIFFERENTIAL; LYMPHOCYTES # (MANUAL) 1.1 10^3/uL (1.5-3.5); LYMPHOCYTES % (MANUAL) 5 %; METAMYELOCYTES % (MANUAL) 1 %; MONOCYTES # (MANUAL) 1.1 10^3/uL (0.0-1.0); MYELOCYTES % (MANUAL) 2 %; NEUTROPHILS # (MANUAL) 18.8 10^3/uL (1.5-6.6); PLATELET ESTIMATE, MANUAL INCREASED (>450,000) (NORMAL); RBC MORPHOLOGY (MULTIPLE) NORMAL APPEARANCE (NORMAL)
[2023-04-03] MEDS: BACITRACIN ZINC OINT 1 PACKET TOP PRN (07:04)
[2023-04-03 07:51] LABS: ABG PH 7.27 (7.35-7.45)
[2023-04-03 07:52] LABS: ABG PO2 61 mmHg (80-100); ALLEN TEST POSITIVE
[2023-04-03 07:59] LABS: ABG OXYGEN SATURATION 86 % (94-98); ABG PCO2 81 mmHg (34-45)
[2023-04-03 08:00] LABS: ABG RESPIRATORY RATE 14 b/min
[2023-04-03] MEDS ORDERED: predniSONE 20 MG TABLET PO SCH (08:00)
[2023-04-03] MEDS: IPRATROPIUM/ALBUTEROL 3 ML NEB INH SCH (08:03)
[2023-04-03] MEDS ORDERED: SODIUM CHLORIDE 0.9% 1,000 ML ONE ×2 (08:13→20:06)
[2023-04-03] MEDS: cefTRIAXone 1 GM in SODIUM CHLORIDE 0.9% MINIBAG 100 ML IV SCH (08:15)
[2023-04-03] MEDS: ENOXAPARIN 40 MG/0.4 ML SYRINGE SUBQ SCH (08:32)
--- NOTE | 2023-04-03 08:36 | CT Report ---
PROCEDURE: Angio Chest INDICATIONS: pna, pulmonary embolism CONTRAST: Omni 300, 100mls TECHNIQUE: After the administration of intravenous contrast, 2 mm axial images were acquired from the pulmonary apices to the posterior costophrenic angles during the arterial phase. In addition, 1 mm lung kernel and 5 mm soft tissue kernel reconstructions were performed. 3-dimensional coronal oblique maximum int ensity projection (MIP) reformats, 8 mm axial MIP, and 5 mm coronal and sagittal MPR reformats were t hen performed through the thorax. For radiation dose reduction, the following was used: automated exp osure control, adjustment of mA and/or kV according to patient size. COMPARISON: 01/14/2021 FINDINGS: Image quality: Motion degraded. Lungs and pleura:Mild bibasilar atelectasis and opacities. Moderate to severe emphysema. There is bro nchial wall thickening. Scattered small nodules are present as well. Trace left effusion. Mediastinum, heart, and esophagus: No central pulmonary embolism. The distal arteries are obscured by motion. Ectatic pulmonary artery suggestive of chronically high pulmonary pressures. There is a smal l hiatal hernia. Borderline heart size. Coronary calcifications. Prominent mediastinal lymph nodes ar e again seen, possibly reactive. Chest wall and thyroid: Partially seen right thyroid nodule as before. Ultrasound was previously lorena mmended. Chest wall is otherwise unremarkable. Upper abdomen: Partially seen suspected left renal cyst. No gross abnormality otherwise on this arter ial phase study. Bones: Degenerative changes. No acute or suspicious findings. T4 height loss is age-indeterminate. IMPRESSION: Bibasilar atelectasis and possibly infectious or inflammatory opacities. Trace left effusion. Modera te to severe emphysema. Consider future imaging surveillance to assess for resolution. No central pulmonary embolism. The distal arteries are obscured by motion. No significant discrepancy from the preliminary report. Other findings as above. Reviewed by: Arthur Loving MD on 04/03/2023 8:35 AM PST Approved by: Arthur Loving MD on 04/03/2023 8:35 AM PST Station ID: [id number]
[2023-04-03 08:38] LABS: ESTIMATED AVERAGE GLUCOSE 114 mg/dL (70-100); HEMOGLOBIN A1c% 5.6 % (4.27-6.07)
[2023-04-03] MEDS: LORazepam 2 MG/ML VIAL IVP PRN (08:47)
[2023-04-03] MEDS ORDERED: NON FORMULARY MED (Vitamin B Complex [Vitamin B Complex] 1 EACH Tablet) PO SCH (09:00)
[2023-04-03] MEDS: THIAMINE INJ 100 MG, MAGNESIUM SULFATE 2 GM, MULTIVITAMIN 10 ML, FOLIC ACID INJ 1 MG in... IV ONE (09:00)
[2023-04-03] MEDS ORDERED: TIOTROPIUM BROMIDE 18 MCG INH SCH (09:00)
[2023-04-03] MEDS ORDERED: cefTRIAXone 1 GM in SODIUM CHLORIDE 0.9% MINIBAG 100 ML IV SCH (09:00)
[2023-04-03] MEDS ORDERED: AZITHROMYCIN INJ 500 MG in SODIUM CHLORIDE 0.9% 250 ML IV SCH (09:00)
[2023-04-03] MEDS: AZITHROMYCIN INJ 500 MG in SODIUM CHLORIDE 0.9% 250 ML IV SCH (09:16)
[2023-04-03 09:42] LABS: ABG HCO3 35.3 mmol/L (22.0-26.0); ABG OXYGEN SATURATION 95 % (94-98); ABG PH 7.31 (7.35-7.45); ABG PO2 77 mmHg (80-100); ABG TCO2 37.5 MMOL/L (21.0-29.0)
[2023-04-03 09:43] LABS: ALLEN TEST POSITIVE
[2023-04-03 09:46] LABS: ABG PCO2 71 mmHg (34-45)
[2023-04-03] MEDS ORDERED: MULTIVITAMIN 10 ML, THIAMINE INJ 100 MG, FOLIC ACID INJ 1 MG in SODIUM CHLORIDE 0.9% 1,... IV SCH (11:00)
[2023-04-03] MEDS ORDERED: IPRATROPIUM/ALBUTEROL 3 ML NEB INH SCH (11:00)
[2023-04-03] MEDS ORDERED: methylPREDNISolone SUCCINATE 40 MG/ML VIAL IVP SCH (11:00)
--- NOTE | 2023-04-03 11:07 | PHARMACY PROGRESS NOTE ---
- Best Possible Medication History Admit Date and Time: 04/03/23 0346 Processed by: Pharmacy Medication History completed: Yes Patient Interview: Pt unable to participate Secondary Source(s): Physician records, Pharmacy records, Insurance records As the person ultimately responsible for medication therapy, providers are able to order a medication from an existing home medication list in [facility] via the "Reconcile Routine" prior to Confirmation of that medication by client support consultant. Such practice is discouraged except when the physician, in their clinical judgment, deems that a medical need exists for a medication without regard to previous use.
[2023-04-03 12:34] LABS: ABG PH 7.35 (7.35-7.45)
[2023-04-03 12:35] LABS: ABG BASE EXCESS 7.4 mmol/L (-2.0-3.0); ABG HCO3 34.8 mmol/L (22.0-26.0); ABG OXYGEN SATURATION 91 % (94-98); ABG PO2 60 mmHg (80-100); ABG TCO2 36.8 MMOL/L (21.0-29.0); ALLEN TEST POSITIVE
[2023-04-03 12:36] LABS: ABG RESPIRATORY RATE 14 b/min
[2023-04-03 12:38] LABS: ABG PCO2 65 mmHg (34-45)
[2023-04-03] MEDS: CHOLECALCIFEROL 25 MCG TABLET PO SCH (12:58)
[2023-04-03] MEDS: MULTIVITAMIN TABLET PO SCH (12:58)
[2023-04-03] MEDS: ASPIRIN EC 81 MG TABLET PO SCH (12:58)
[2023-04-03] MEDS: ASCORBIC ACID 500 MG TABLET PO SCH (12:58)
[2023-04-03] MEDS: guaiFENesin 600 MG TABLET PO SCH (12:59)
[2023-04-03] MEDS: LACTOBACILLUS RHAMNOSUS GG CAPSULE PO SCH (12:59)
[2023-04-03] MEDS: MAGNESIUM OXIDE 400 MG TABLET PO SCH (13:00)
[2023-04-03] MEDS: SODIUM CHLORIDE FLUSH 0.9% 10 ML SYRINGE IVP SCH (13:00)
[2023-04-03] MEDS: METOPROLOL SUCCINATE 25 MG TABLET PO SCH (13:00)
[2023-04-03] MEDS: lisinopriL 5 MG TABLET PO SCH (13:00)
[2023-04-03] MEDS: POTASSIUM CHLORIDE 20 MEQ TABLET PO SCH (13:00)
[2023-04-03] MEDS: MULTIVITAMIN 10 ML, THIAMINE INJ 100 MG, FOLIC ACID INJ 1 MG in SODIUM CHLORIDE 0.9% 1,... IV SCH (13:01)
[2023-04-03] MEDS: methylPREDNISolone SUCCINATE 40 MG/ML VIAL IVP SCH ×2 (16:08→21:26)
[2023-04-03] MEDS: chlordiazePOXIDE 5 MG CAPSULE PO SCH (16:11)
[2023-04-03] MEDS: FUROSEMIDE 20 MG TABLET PO SCH (17:35)
[2023-04-03] MEDS: FORMOTEROL FUMARATE NEB 20 MCG/2 ML INH SCH (18:11)
[2023-04-03] MEDS: BUDESONIDE 0.5 MG/2 ML NEB INH SCH (18:11)
[2023-04-03] MEDS: THIAMINE INJ 100 MG, MAGNESIUM SULFATE 2 GM, MULTIVITAMIN 10 ML, FOLIC ACID INJ 1 MG in... IV STA (20:03)
[2023-04-03] MEDS: SODIUM CHLORIDE 0.9% 1,000 ML IV SCH (20:08)
[2023-04-03] MEDS ORDERED: NS W/20 MEQ KCL 1,000 ML IV SCH (23:00)
[2023-04-04 04:51] LABS: BASOPHILS % (AUTO) 0.2 %; HCT - HEMATOCRIT 31.5 % (42.0-52.0); HGB - HEMOGLOBIN 9.9 g/dL (14.0-18.0); LYMPHOCYTES % (AUTO) 3.6 %; MEAN CORPUSCULAR HGB CONC 31.4 g/dL (32.0-36.0); MEAN CORPUSCULAR VOLUME 95.5 fL (80.0-94.0); MEAN PLATELET VOLUME 9.3 fL (7.4-11.4); MONOCYTES % (AUTO) 8.4 %; NEUTROPHILS % (AUTO) 83.7 %; PLT - PLATELET COUNT 481 10^3/uL (130-450); RED CELL DISTRIBUTION WIDTH 13.4 % (12.0-15.0); WHITE BLOOD COUNT 26.3 x10^3/uL (4.8-10.8)
[2023-04-04 04:57] LABS: CALCIUM, IONIZED 1.13 mmol/L (1.15-1.33); VBG PH 7.394 (7.31-7.41)
[2023-04-04 05:01] LABS: ABNORMAL LYMPHS % (MANUAL) 0 %
[2023-04-04 05:08] LABS: INR 1.1 (0.8-1.2); PT - PROTHROMBIN TIME 12.1 secs (9.9-12.6)
[2023-04-04 05:44] LABS: ALBUMIN 3.2 g/dL (3.2-5.5); ALBUMIN/GLOBULIN RATIO 1.2 (1.0-2.2); BILIRUBIN,TOTAL 0.2 mg/dL (0.2-1.0); CALCIUM 8.6 mg/dL (8.5-10.3); CREATININE 0.8 mg/dL (0.6-1.3); MAGNESIUM 2.1 mg/dL (1.7-2.3); POTASSIUM 4.6 mmol/L (3.5-4.5); TOTAL PROTEIN 5.8 g/dL (6.4-8.9)
[2023-04-04] MEDS: ACETAMINOPHEN 325 MG TABLET PO PRN (06:40)
[2023-04-04 06:53] LABS: BAND NEUTROPHILS % (MANUAL) 9 %; DIFFERENTIAL COMMENT MANUAL DIFFERENTIAL; LYMPHOCYTES # (MANUAL) 1.3 10^3/uL (1.5-3.5); LYMPHOCYTES % (MANUAL) 5 %; METAMYELOCYTES % (MANUAL) 2 %; MONOCYTES # (MANUAL) 1.6 10^3/uL (0.0-1.0); MYELOCYTES % (MANUAL) 3 %; NEUTROPHILS # (MANUAL) 22.1 10^3/uL (1.5-6.6); PLATELET ESTIMATE, MANUAL INCREASED (>450,000) (NORMAL); RBC MORPHOLOGY (MULTIPLE) NORMAL APPEARANCE (NORMAL)
[2023-04-04] MEDS: NEUTRA-PHOS 250 MG TABLET PO SCH (08:15)
[2023-04-04] MEDS: ENOXAPARIN 40 MG/0.4 ML SYRINGE SUBQ SCH (08:16)
[2023-04-04] MEDS: LORazepam 0.5 MG TABLET PO SCH (12:36)
[2023-04-04] MEDS: SERTRALINE 25 MG TABLET PO SCH (13:00)
--- NOTE | 2023-04-04 17:12 | PROVIDER PROGRESS NOTE ---
Subjective - Subjective Pt reports feeling: Improved (He is still going through withdrawal, has a poor memory, is tremulous, is unable to speak in complete sentences) Objective - Vital Signs/Intake & Output Reviewed Vital Signs: Yes Vital Signs: Vital Signs Temp Pulse Resp BP Pulse Ox O2 Flow Rate 04/04/23 16:45 3 04/04/23 16:00 36.9 C 85 24 116/96 H 97 3 04/04/23 15:00 84 98 H 133/74 H 28 L 3 04/04/23 14:00 87 21 126/67 99 3 Intake & Output: Intake & Output 04/01/23 04/02/23 04/03/23 04/04/23 23:59 23:59 23:59 23:59 Intake Total 250 3965.2 2045 Output Total 300 1100 1050 Balance -50 2865.2 995 - Objective General Appearance: positive: Moderate distress (from cough and SOB), Other (Face is flushed and greasy) Eyes Bilateral: positive: Normal inspection, EOMI ENT: positive: No signs of dehydration, Other (Lips are purple) Neck: positive: Nml inspection Respiratory: positive: Wheezes, Rhonchi, Other (Poor air mvm in all lung saucedo) Cardiovascular: positive: Regular rate & rhythm (Distant heart sounds due to COPD) Abdomen: positive: Non-tender, No distention Skin: positive: Other (Face is flushed, and is greasy and poorly kempt, patient is disheveled) Extremities: positive: Non-tender, No pedal edema Neurologic/Psychiatric: positive: Disoriented to person, Disoriented to place, Disoriented to time, Other (Is mostly lethargic, speaks in 3 word sentences, falls asleep midsentence) - Lab Results Fish Bones: 04/05/23 10:25 04/05/23 10:25 Other Labs: Lab Results x24hrs 04/04/23 04/04/23 04/04/23 Range/Units 04:24 04:24 04:24 WBC (4.8-10.8) x10^3/uL RBC (4.70-6.10) 10^6/uL Hgb (14.0-18.0) g/dL Hct (42.0-52.0) % MCV (80.0-94.0) fL MCH (27.0-31.0) pg MCHC (32.0-36.0) g/dL RDW (12.0-15.0) % Plt Count (130-450) 10^3/uL MPV (7.4-11.4) fL Neut # (Auto) Lymph # (Auto) [place] # (Auto) Eos # (Auto) Baso # (Auto) Absolute Nucleated RBC Total Counted Band Neuts % (Manual) (0 - 10) % Abnorm Lymph % (Manual) % Metamyelocytes % ( - 0) % Myelocytes % ( - 0) % Nucleated RBC % Neutrophils # (Manual) (1.5-6.6) 10^3/uL Lymphocytes # (Manual) (1.5-3.5) 10^3/uL Monocytes # (Manual) (0.0-1.0) 10^3/uL Eosinophils # (Manual) (0-0.7) 10^3/uL Basophils # (Manual) (0-0.1) 10^3/uL Differential Comment Platelet Estimate (NORMAL) RBC Morph Micro Appear (NORMAL) PT 12.1 (9.9-12.6) secs INR 1.1 (0.8-1.2) VBG pH (7.31-7.41) Ionized Calcium (1.15-1.33) mmol/L Sodium 136 (135-145) mmol/L Potassium 4.6 H (3.5-4.5) mmol/L Chloride 97 L (101-111) mmol/L Carbon Dioxide 38 H (21-32) mmol/L Anion Gap 1.0 L (6-13) BUN 15 (6-20) mg/dL Creatinine 0.8 (0.6-1.3) mg/dL Estimated GFR (MDRD) 96 (>89) Glucose 176 H (74-104) mg/dL Calcium 8.6 (8.5-10.3) mg/dL Phosphorus 2.4 L (2.5-5.0) mg/dL Magnesium 2.1 (1.7-2.3) mg/dL Total Bilirubin 0.2 (0.2-1.0) mg/dL AST 10 (10-42) IU/L ALT 14 (10-60) IU/L Alkaline Phosphatase 52 (42-121) IU/L Total Protein 5.8 L (6.4-8.9) g/dL Albumin 3.2 (3.2-5.5) g/dL Globulin 2.6 (2.1-4.2) g/dL Albumin/Globulin Ratio 1.2 (1.0-2.2) 04/04/23 04/04/23 Range/Units 04:24 04:24 WBC 26.3 H (4.8-10.8) x10^3/uL RBC 3.30 L (4.70-6.10) 10^6/uL Hgb 9.9 L (14.0-18.0) g/dL Hct 31.5 L (42.0-52.0) % MCV 95.5 H (80.0-94.0) fL MCH 30.0 (27.0-31.0) pg MCHC 31.4 L (32.0-36.0) g/dL RDW 13.4 (12.0-15.0) % Plt Count 481 H (130-450) 10^3/uL MPV 9.3 (7.4-11.4) fL Neut # (Auto) Not Reportable Lymph # (Auto) Not Reportable [place] # (Auto) Not Reportable Eos # (Auto) Not Reportable Baso # (Auto) Not Reportable Absolute Nucleated RBC Not Reportable Total Counted 100 Band Neuts % (Manual) 9 (0 - 10) % Abnorm Lymph % (Manual) 0 % Metamyelocytes % 2 H ( - 0) % Myelocytes % 3 H ( - 0) % Nucleated RBC % Not Reportable Neutrophils # (Manual) 22.1 H (1.5-6.6) 10^3/uL Lymphocytes # (Manual) 1.3 L (1.5-3.5) 10^3/uL Monocytes # (Manual) 1.6 H (0.0-1.0) 10^3/uL Eosinophils # (Manual) 0.0 (0-0.7) 10^3/uL Basophils # (Manual) 0.0 (0-0.1) 10^3/uL Differential Comment MANUAL DIFFERENTIAL Platelet Estimate INCREASED (>450,000) (NORMAL) RBC Morph Micro Appear NORMAL APPEARANCE (NORMAL) PT (9.9-12.6) secs INR (0.8-1.2) VBG pH 7.394 (7.31-7.41) Ionized Calcium 1.13 L (1.15-1.33) mmol/L Sodium (135-145) mmol/L Potassium (3.5-4.5) mmol/L Chloride (101-111) mmol/L Carbon Dioxide (21-32) mmol/L Anion Gap (6-13) BUN (6-20) mg/dL Creatinine (0.6-1.3) mg/dL Estimated GFR (MDRD) (>89) Glucose (74-104) mg/dL Calcium (8.5-10.3) mg/dL Phosphorus (2.5-5.0) mg/dL Magnesium (1.7-2.3) mg/dL Total Bilirubin (0.2-1.0) mg/dL AST (10-42) IU/L ALT (10-60) IU/L Alkaline Phosphatase (42-121) IU/L Total Protein (6.4-8.9) g/dL Albumin (3.2-5.5) g/dL Globulin (2.1-4.2) g/dL Albumin/Globulin Ratio (1.0-2.2) Assessment/Plan - Problem List (1) Acute on chronic respiratory failure with hypoxia Impression: Cause is multifactorail: from acute copd exacerbation and his PNA. His resp viral panel is NEG Plan: Cont suppl O2. Remain in ICU in case BiPAP is needed at night Treat the underlying causes of his hypoxia I updated the daughter at bedside today (2) COPD exacerbation Plan: Cont nebs, Solumedrol, Pulmicort, Montelukast and Mucinex (3) Community acquired Pneumonia Plan: Cont iv rocephin, azithromycin Await resp cultures to tailor antibx Add Mucinex to help expectorate (4) AMS Likely from alcohol withdrawal, needeing Benzos and from hypoxia and hyppnatremia. He is much improved s/p bipap, and as waking up from Benzos. pt has no focal neuro deficits Ammonia level came back normal Plan: Will consider Head CT if has focal findings or no improvement Supportive care thru alcohol withdrawal (5) Alcohol withdrawal His last CIWA scored at 4 mid-day today Plan: Cont CIWA protocol with prn iv Ativan Start po Librium scheduled Cont mvi, thiamine ivf (6) Alcohol abuse We do not definitely know the amt and rate of his alcohol intake yet. Yesterday he started telling me he drinks whiskey. He has received 2 L of Banana bag which were stopped when he awoke and started eating and taking liquids. Plan: Cont CIWA protocol Start po Librium scheduled SW consult planned when he is medically stablilized (7) Hyponatremia Likely due to etoh abuse + potomania Plan: Continue IVF w/NS Goal is 6-8 mEq improvement in 24 hrs Cont monitoring BMP daily (8) Leukocytosis All labs were reviewed. His WBC increased from to 21 to 26 today This is most likely from high steroid doses ordered for his COPD exacerbation, but could be from the PNA as well. Plan: Await cx results, to tailor antibx Follow CBC daily (9) Thrombocytosis Likely acute inflammatory reaction and in setting of copd Plan: Cont lovenox prophylaxis Monitor CBC daily (10) Tobacco use As per Hx Plan: Nicotine patch prn. I discussed smoking cessation w/ him today
[2023-04-05 05:04] LABS: BASOPHILS % (AUTO) 0.1 %; HCT - HEMATOCRIT 32.7 % (42.0-52.0); HGB - HEMOGLOBIN 9.8 g/dL (14.0-18.0); LYMPHOCYTES % (AUTO) 4.2 %; MEAN CORPUSCULAR HEMOGLOBIN 29.7 pg (27.0-31.0); MEAN CORPUSCULAR VOLUME 99.1 fL (80.0-94.0); MEAN PLATELET VOLUME 9.3 fL (7.4-11.4); MONOCYTES % (AUTO) 8.2 %; NEUTROPHILS % (AUTO) 84.7 %; PLT - PLATELET COUNT 451 10^3/uL (130-450); RED CELL DISTRIBUTION WIDTH 13.4 % (12.0-15.0); WHITE BLOOD COUNT 23.7 x10^3/uL (4.8-10.8)
[2023-04-05 05:17] LABS: CALCIUM, IONIZED 1.15 mmol/L (1.15-1.33); VBG PH 7.387 (7.31-7.41)
[2023-04-05 05:29] LABS: ABNORMAL LYMPHS % (MANUAL) 0 %
[2023-04-05 06:57] LABS: ABG BASE EXCESS 12.2 mmol/L (-2.0-3.0); ABG HCO3 39.4 mmol/L (22.0-26.0); ABG OXYGEN SATURATION 99 % (94-98); ABG PH 7.39 (7.35-7.45); ABG PO2 135 mmHg (80-100); ALLEN TEST POSITIVE
[2023-04-05 07:00] LABS: ABG PCO2 67 mmHg (34-45); ABG TCO2 41.5 MMOL/L (21.0-29.0)
[2023-04-05 07:07] LABS: BAND NEUTROPHILS % (MANUAL) 3 %; DIFFERENTIAL COMMENT MANUAL DIFFERENTIAL; LYMPHOCYTES # (MANUAL) 0.2 10^3/uL (1.5-3.5); LYMPHOCYTES % (MANUAL) 1 %; METAMYELOCYTES % (MANUAL) 2 %; MONOCYTES # (MANUAL) 1.7 10^3/uL (0.0-1.0); MYELOCYTES % (MANUAL) 2 %; NEUTROPHILS # (MANUAL) 20.9 10^3/uL (1.5-6.6); PLATELET ESTIMATE, MANUAL INCREASED (>450,000) (NORMAL); RBC MORPHOLOGY (MULTIPLE) NORMAL APPEARANCE (NORMAL)
[2023-04-05] MEDS: PANTOPRAZOLE 40 MG TABLET PO SCH (08:09)
[2023-04-05 10:33] LABS: CALCIUM, IONIZED 1.16 mmol/L (1.15-1.33); VBG PH 7.334 (7.31-7.41)
[2023-04-05] MEDS ORDERED: LORazepam 2 MG/ML VIAL IVP PRN (10:33)
[2023-04-05 10:40] LABS: BASOPHILS % (AUTO) 0.2 %; HCT - HEMATOCRIT 33.2 % (42.0-52.0); HGB - HEMOGLOBIN 9.9 g/dL (14.0-18.0); LYMPHOCYTES % (AUTO) 3.6 %; MEAN CORPUSCULAR HEMOGLOBIN 29.6 pg (27.0-31.0); MEAN CORPUSCULAR HGB CONC 29.8 g/dL (32.0-36.0); MEAN CORPUSCULAR VOLUME 99.1 fL (80.0-94.0); MONOCYTES % (AUTO) 6.5 %; NEUTROPHILS % (AUTO) 86.9 %; PLT - PLATELET COUNT 436 10^3/uL (130-450); RED BLOOD COUNT 3.35 10^6/uL (4.70-6.10); RED CELL DISTRIBUTION WIDTH 13.6 % (12.0-15.0); WHITE BLOOD COUNT 21.6 x10^3/uL (4.8-10.8)
[2023-04-05 10:46] LABS: ABNORMAL LYMPHS % (MANUAL) 0 %
[2023-04-05 10:49] LABS: CALCIUM 8.6 mg/dL (8.5-10.3); CREATININE 0.6 mg/dL (0.6-1.3); POTASSIUM 4.3 mmol/L (3.5-4.5)
[2023-04-05] MEDS: SODIUM CHLORIDE 0.9% 1,000 ML IV SCH (10:56)
[2023-04-05 11:03] LABS: PHOSPHORUS 2.8 mg/dL (2.5-5.0)
[2023-04-05 11:08] LABS: BAND NEUTROPHILS % (MANUAL) 6 %; LYMPHOCYTES # (MANUAL) 1.3 10^3/uL (1.5-3.5); LYMPHOCYTES % (MANUAL) 3 %; MONOCYTES # (MANUAL) 0.6 10^3/uL (0.0-1.0); MYELOCYTES % (MANUAL) 1 %; NEUTROPHILS # (MANUAL) 19.4 10^3/uL (1.5-6.6); RBC MORPHOLOGY (MULTIPLE) 2+ ANISOCYTOSIS (NORMAL); REACTIVE LYMPHS % (MANUAL) 3 %
[2023-04-05 11:09] LABS: DIFFERENTIAL COMMENT MANUAL DIFFERENTIAL
[2023-04-05] MEDS: THIAMINE 100 MG TABLET PO SCH (12:01)
--- NOTE | 2023-04-05 14:07 | PROVIDER PROGRESS NOTE ---
Subjective - Subjective Pt reports feeling: Improved (He is intermittently more awake, able to eat his entire meal. At other times he is somnolent and difficult to awaken. He then needs to be on BiPAP.) Objective - Vital Signs/Intake & Output Vital Signs: Vital Signs Temp Pulse Resp BP Pulse Ox O2 Flow Rate 04/05/23 13:44 2 04/05/23 13:00 81 29 H 109/62 96 04/05/23 12:00 71 21 129/82 H 98 04/05/23 11:00 36.6 C 68 24 123/68 96 Intake & Output: Intake & Output 04/02/23 04/03/23 04/04/23 04/05/23 23:59 23:59 23:59 23:59 Intake Total 250 3965.2 3106.2 2288 Output Total 300 1100 1200 1050 Balance -50 2865.2 1906.2 1238 - Objective General Appearance: positive: Lethargic (Is on BIPAP), Other (Face flushed. Disheveled) Eyes Bilateral: positive: EOMI, No lid inflammation ENT: positive: ENT inspection nml, No signs of dehydration Neck: positive: Nml inspection Respiratory: positive: No respiratory distress (when on BIPAP), Other (Poor air movement in all lung saucedo (is tight), but no wheezing heard) Cardiovascular: positive: Regular rate & rhythm (Distant heart sounds due to COPD) Abdomen: positive: Non-tender, Nml bowel sounds, No distention Skin: positive: Warm, Diaphoresis, Other (Magnet face) Extremities: positive: Non-tender, No pedal edema Neurologic/Psychiatric: positive: Other (Lethargic, awakens and answers with short sentences, falls quickly back asleep) - Lab Results Fish Bones: 04/05/23 10:25 04/05/23 10:25 Other Labs: Lab Results x24hrs 04/05/23 04/05/23 04/05/23 Range/Units 10:25 10:25 10:25 WBC (4.8-10.8) x10^3/uL RBC (4.70-6.10) 10^6/uL Hgb (14.0-18.0) g/dL Hct (42.0-52.0) % MCV (80.0-94.0) fL MCH (27.0-31.0) pg MCHC (32.0-36.0) g/dL RDW (12.0-15.0) % Plt Count (130-450) 10^3/uL MPV (7.4-11.4) fL Neut # (Auto) Lymph # (Auto) [place] # (Auto) Eos # (Auto) Baso # (Auto) Absolute Nucleated RBC Total Counted Band Neuts % (Manual) (0 - 10) % Reactive Lymphs % (Man) % Abnorm Lymph % (Manual) % Metamyelocytes % ( - 0) % Myelocytes % ( - 0) % Nucleated RBC % Neutrophils # (Manual) (1.5-6.6) 10^3/uL Lymphocytes # (Manual) (1.5-3.5) 10^3/uL Monocytes # (Manual) (0.0-1.0) 10^3/uL Eosinophils # (Manual) (0-0.7) 10^3/uL Basophils # (Manual) (0-0.1) 10^3/uL Differential Comment Platelet Estimate (NORMAL) RBC Morph Micro Appear (NORMAL) Bld Gas Analysis Time Sample Site ABG pH (7.35-7.45) ABG pCO2 (34-45) mmHg ABG pO2 (80-100) mmHg ABG HCO3 (22.0-26.0) mmol/L ABG Total CO2 (21.0-29.0) MMOL/L ABG O2 Saturation (94-98) % ABG Base Excess (-2.0-3.0) mmol/L Ganga Test VBG pH 7.334 (7.31-7.41) Ionized Calcium 1.16 (1.15-1.33) mmol/L O2 Delivery Device FiO2 EPAP cmH2O IPAP cmH2O Sodium 138 (135-145) mmol/L Potassium 4.3 (3.5-4.5) mmol/L Chloride 99 L (101-111) mmol/L Carbon Dioxide 39 H* (21-32) mmol/L Anion Gap 0.0 L (6-13) BUN 14 (6-20) mg/dL Creatinine 0.6 (0.6-1.3) mg/dL Estimated GFR (MDRD) 134 (>89) Glucose 196 H (74-104) mg/dL Calcium 8.6 (8.5-10.3) mg/dL Phosphorus 2.8 (2.5-5.0) mg/dL Magnesium 2.0 (1.7-2.3) mg/dL 04/05/23 04/05/23 04/05/23 Range/Units 10:25 06:46 04:41 WBC 21.6 H (4.8-10.8) x10^3/uL RBC 3.35 L (4.70-6.10) 10^6/uL Hgb 9.9 L (14.0-18.0) g/dL Hct 33.2 L (42.0-52.0) % MCV 99.1 H (80.0-94.0) fL MCH 29.6 (27.0-31.0) pg MCHC 29.8 L (32.0-36.0) g/dL RDW 13.6 (12.0-15.0) % Plt Count 436 (130-450) 10^3/uL MPV 9.0 (7.4-11.4) fL Neut # (Auto) Not Reportable Lymph # (Auto) Not Reportable [place] # (Auto) Not Reportable Eos # (Auto) Not Reportable Baso # (Auto) Not Reportable Absolute Nucleated RBC Not Reportable Total Counted 100 Band Neuts % (Manual) 6 (0 - 10) % Reactive Lymphs % (Man) 3 % Abnorm Lymph % (Manual) 0 % Metamyelocytes % ( - 0) % Myelocytes % 1 H ( - 0) % Nucleated RBC % Not Reportable Neutrophils # (Manual) 19.4 H (1.5-6.6) 10^3/uL Lymphocytes # (Manual) 1.3 L (1.5-3.5) 10^3/uL Monocytes # (Manual) 0.6 (0.0-1.0) 10^3/uL Eosinophils # (Manual) 0.0 (0-0.7) 10^3/uL Basophils # (Manual) 0.0 (0-0.1) 10^3/uL Differential Comment MANUAL DIFFERENTIAL Platelet Estimate (NORMAL) RBC Morph Micro Appear 2+ ANISOCYTOSIS (NORMAL) Bld Gas Analysis Time 0646 Sample Site RIGHT RADIAL ABG pH 7.39 (7.35-7.45) ABG pCO2 67 H* (34-45) mmHg ABG pO2 135 H (80-100) mmHg ABG HCO3 39.4 H (22.0-26.0) mmol/L ABG Total CO2 41.5 H* (21.0-29.0) MMOL/L ABG O2 Saturation 99 H (94-98) % ABG Base Excess 12.2 H (-2.0-3.0) mmol/L Ganga Test POSITIVE VBG pH (7.31-7.41) Ionized Calcium (1.15-1.33) mmol/L O2 Delivery Device BiPAP FiO2 40.00 EPAP 5 cmH2O IPAP 12 cmH2O Sodium (135-145) mmol/L Potassium (3.5-4.5) mmol/L Chloride (101-111) mmol/L Carbon Dioxide (21-32) mmol/L Anion Gap (6-13) BUN (6-20) mg/dL Creatinine (0.6-1.3) mg/dL Estimated GFR (MDRD) (>89) Glucose (74-104) mg/dL Calcium (8.5-10.3) mg/dL Phosphorus 3.7 (2.5-5.0) mg/dL Magnesium (1.7-2.3) mg/dL 04/05/23 04/05/23 Range/Units 04:41 04:41 WBC 23.7 H (4.8-10.8) x10^3/uL RBC 3.30 L (4.70-6.10) 10^6/uL Hgb 9.8 L (14.0-18.0) g/dL Hct 32.7 L (42.0-52.0) % MCV 99.1 H (80.0-94.0) fL MCH 29.7 (27.0-31.0) pg MCHC 30.0 L (32.0-36.0) g/dL RDW 13.4 (12.0-15.0) % Plt Count 451 H (130-450) 10^3/uL MPV 9.3 (7.4-11.4) fL Neut # (Auto) Not Reportable Lymph # (Auto) Not Reportable [place] # (Auto) Not Reportable Eos # (Auto) Not Reportable Baso # (Auto) Not Reportable Absolute Nucleated RBC Not Reportable Total Counted 100 Band Neuts % (Manual) 3 (0 - 10) % Reactive Lymphs % (Man) % Abnorm Lymph % (Manual) 0 % Metamyelocytes % 2 H ( - 0) % Myelocytes % 2 H ( - 0) % Nucleated RBC % Not Reportable Neutrophils # (Manual) 20.9 H (1.5-6.6) 10^3/uL Lymphocytes # (Manual) 0.2 L (1.5-3.5) 10^3/uL Monocytes # (Manual) 1.7 H (0.0-1.0) 10^3/uL Eosinophils # (Manual) 0.0 (0-0.7) 10^3/uL Basophils # (Manual) 0.0 (0-0.1) 10^3/uL Differential Comment MANUAL DIFFERENTIAL Platelet Estimate INCREASED (>450,000) (NORMAL) RBC Morph Micro Appear NORMAL APPEARANCE (NORMAL) Bld Gas Analysis Time Sample Site ABG pH (7.35-7.45) ABG pCO2 (34-45) mmHg ABG pO2 (80-100) mmHg ABG HCO3 (22.0-26.0) mmol/L ABG Total CO2 (21.0-29.0) MMOL/L ABG O2 Saturation (94-98) % ABG Base Excess (-2.0-3.0) mmol/L Ganga Test VBG pH 7.387 (7.31-7.41) Ionized Calcium 1.15 (1.15-1.33) mmol/L O2 Delivery Device FiO2 EPAP cmH2O IPAP cmH2O Sodium (135-145) mmol/L Potassium (3.5-4.5) mmol/L Chloride (101-111) mmol/L Carbon Dioxide (21-32) mmol/L Anion Gap (6-13) BUN (6-20) mg/dL Creatinine (0.6-1.3) mg/dL Estimated GFR (MDRD) (>89) Glucose (74-104) mg/dL Calcium (8.5-10.3) mg/dL Phosphorus (2.5-5.0) mg/dL Magnesium (1.7-2.3) mg/dL Assessment/Plan - Problem List (1) Acute on chronic respiratory failure with hypoxia Impression: Cause is multifactorail: from acute COPD exacerbation and his PNA. His resp viral panel is NEG Plan: Treat the underlying causes of his hypoxia Cont suppl O2. Remain in ICU since he is still needing BiPAP Patient has oxygen dependent COPD and chronic respiratory failure and has responded well to BiPAP here in the inpatient setting. I am ordering a home BiPAP machine, BiPAP: 12 cm of water, EPAP 5 cm of water. This is needed to treat his COPD and chronic respiratory failure, and will improve his activities of daily living, reduce mortality and reduce hospital readmissions. (2) COPD exacerbation Plan: Cont nebs, Solumedrol, Pulmicort, Montelukast and Mucinex (3) Community acquired Pneumonia Plan: Cont iv rocephin, azithromycin Await resp cultures to tailor antibx Add Mucinex to help expectorate (4) AMS Likely from alcohol withdrawal, needing Benzos and from hypoxia and hyp pnatremia. He is much improved since using bipap, and is waking up from Benzos. Ammonia level came back normal. He has no focal neuro deficits Plan: Will consider Head CT if has focal findings or no improvement Supportive care thru his alcohol withdrawal (5) Alcohol withdrawal His last CIWA scored at 4 mid-day today Plan: Cont CIWA protocol with prn iv Ativan Start po Librium scheduled Cont mvi, thiamine ivf (6) Alcohol abuse We do not definitely know the amt and rate of his alcohol intake yet. Yesterday he started telling me he drinks whiskey. He has received 2 L of Banana bag which were stopped when he awoke and started eating and taking liquids. Plan: Cont CIWA protocol Start po Librium scheduled SW consult planned when he is medically stablilized (7) Hyponatremia Likely due to etoh abuse + potomania Plan: Continue IVF w/NS Goal is 6-8 mEq improvement in 24 hrs Cont monitoring BMP daily (8) Leukocytosis All labs were reviewed. His WBC increased from to 21 to 26 today This is most likely from high steroid doses ordered for his COPD exacerbation, but could be from the PNA as well. Plan: Await cx results, to tailor antibx Follow CBC daily (9) Thrombocytosis Likely acute inflammatory reaction and in setting of copd Plan: Cont Lovenox prophylaxis Monitor CBC daily (10) Tobacco use As per Hx Plan: Nicotine patch prn. I discussed smoking cessation w/ him on previous day
[2023-04-05] MEDS: chlordiazePOXIDE 5 MG CAPSULE PO SCH (20:22)
[2023-04-06] MEDS: traZODone 50 MG TABLET PO PRN (03:04)
[2023-04-06 04:49] LABS: BASOPHILS % (AUTO) 0.1 %; HCT - HEMATOCRIT 31.6 % (42.0-52.0); HGB - HEMOGLOBIN 9.7 g/dL (14.0-18.0); LYMPHOCYTES % (AUTO) 3.9 %; MEAN CORPUSCULAR HEMOGLOBIN 29.8 pg (27.0-31.0); MEAN CORPUSCULAR HGB CONC 30.7 g/dL (32.0-36.0); MEAN CORPUSCULAR VOLUME 96.9 fL (80.0-94.0); MEAN PLATELET VOLUME 9.3 fL (7.4-11.4); MONOCYTES % (AUTO) 5.7 %; NEUTROPHILS % (AUTO) 88.4 %; PLT - PLATELET COUNT 438 10^3/uL (130-450); RED BLOOD COUNT 3.26 10^6/uL (4.70-6.10); RED CELL DISTRIBUTION WIDTH 13.4 % (12.0-15.0)
[2023-04-06 05:00] LABS: ABNORMAL LYMPHS % (MANUAL) 0 %
[2023-04-06 05:01] LABS: PHOSPHORUS 2.4 mg/dL (2.5-5.0)
[2023-04-06 05:02] LABS: CALCIUM, IONIZED 1.18 mmol/L (1.15-1.33); VBG PH 7.395 (7.31-7.41)
[2023-04-06 05:04] LABS: CALCIUM 8.8 mg/dL (8.5-10.3); CREATININE 0.7 mg/dL (0.6-1.3); POTASSIUM 4.5 mmol/L (3.5-4.5)
[2023-04-06 06:20] LABS: BAND NEUTROPHILS % (MANUAL) 5 %; DIFFERENTIAL COMMENT MANUAL DIFFERENTIAL; LYMPHOCYTES # (MANUAL) 0.6 10^3/uL (1.5-3.5); LYMPHOCYTES % (MANUAL) 3 %; MONOCYTES # (MANUAL) 0.6 10^3/uL (0.0-1.0); NEUTROPHILS # (MANUAL) 19.7 10^3/uL (1.5-6.6); PLATELET ESTIMATE, MANUAL NORMAL (130-450,000) (NORMAL); RBC MORPHOLOGY (MULTIPLE) NORMAL APPEARANCE (NORMAL)
[2023-04-06] MEDS: NEUTRA-PHOS 250 MG TABLET PO SCH (08:36)
[2023-04-06] MEDS ORDERED: SODIUM PHOSPHATE 15 MMOL in SODIUM CHLORIDE 0.9% 250 ML IV ONE (09:00)
[2023-04-06] MEDS: ONDANSETRON 4 MG/2 ML VIAL IVP PRN (17:32)
[2023-04-07 04:31] LABS: BASOPHILS % (AUTO) 0.1 %; HCT - HEMATOCRIT 31.5 % (42.0-52.0); HGB - HEMOGLOBIN 9.8 g/dL (14.0-18.0); LYMPHOCYTES # (AUTO) 0.8 10^3/uL (1.5-3.5); LYMPHOCYTES % (AUTO) 4.3 %; MEAN CORPUSCULAR HEMOGLOBIN 30.2 pg (27.0-31.0); MEAN CORPUSCULAR HGB CONC 31.1 g/dL (32.0-36.0); MEAN CORPUSCULAR VOLUME 96.9 fL (80.0-94.0); MONOCYTES # (AUTO) 1.2 10^3/uL (0.0-1.0); MONOCYTES % (AUTO) 6.1 %; NEUTROPHILS # (AUTO) 17.3 10^3/uL (1.5-6.6); NEUTROPHILS % (AUTO) 88.1 %; PLT - PLATELET COUNT 405 10^3/uL (130-450); RED BLOOD COUNT 3.25 10^6/uL (4.70-6.10); RED CELL DISTRIBUTION WIDTH 13.7 % (12.0-15.0); WHITE BLOOD COUNT 19.6 x10^3/uL (4.8-10.8)
[2023-04-07 04:47] LABS: PHOSPHORUS 3.7 mg/dL (2.5-5.0)
[2023-04-07 05:01] LABS: CALCIUM 8.8 mg/dL (8.5-10.3); CREATININE 0.7 mg/dL (0.6-1.3); POTASSIUM 4.7 mmol/L (3.5-4.5)
[2023-04-07 05:07] LABS: VBG PH 7.375 (7.31-7.41)
[2023-04-07 05:08] LABS: CALCIUM, IONIZED 1.17 mmol/L (1.15-1.33)
--- NOTE | 2023-04-07 07:40 | PROVIDER PROGRESS NOTE ---
Subjective - Subjective Pt reports feeling: Improved (Feels better, more sharp, carries on a conversation now, but still no eye contact. RN reported that he worked with PT, was able to stand and shuffle and today's first time he is sitting OOB in a chair) Objective - Vital Signs/Intake & Output Vital Signs: Vital Signs Temp Pulse Pulse Resp BP Pulse Ox O2 Flow Rate 04/07/23 07:33 2 04/07/23 07:32 2 04/07/23 07:00 89 21 119/60 95 2 04/07/23 06:00 81 84 13 122/62 97 2 04/07/23 05:00 36.5 C 84 10 L 138/83 H 96 2 04/07/23 04:00 80 30 H 137/73 H 97 2 Intake & Output: Intake & Output 04/04/23 04/05/23 04/06/23 04/07/23 23:59 23:59 23:59 23:59 Intake Total 3106.2 2628 2705.5 816 Output Total 1200 1450 2507 825 Balance 1906.2 1178 198.5 -9 - Objective General Appearance: positive: No acute distress, Alert Eyes Bilateral: positive: EOMI, No lid inflammation ENT: positive: No signs of dehydration Neck: positive: Nml inspection Respiratory: positive: Wheezes (Poor air movement in all lung saucedo, scattered wheezes, no rhonchi), Other (He is OOB in chair sitting up but is tripoding) Cardiovascular: positive: Regular rate & rhythm (Distant heart sounds due to COPD) Abdomen: positive: Non-tender, No distention Skin: positive: Warm, Dry Extremities: positive: Non-tender, No pedal edema Neurologic/Psychiatric: positive: Oriented x3, Motor nml, Other (Carries on a conversation but has no eye contact) - Lab Results Fish Bones: 04/07/23 04:12 04/07/23 04:12 Other Labs: Lab Results x24hrs 04/07/23 04/07/23 04/07/23 Range/Units 04:12 04:12 04:12 WBC 19.6 H (4.8-10.8) x10^3/uL RBC 3.25 L (4.70-6.10) 10^6/uL Hgb 9.8 L (14.0-18.0) g/dL Hct 31.5 L (42.0-52.0) % MCV 96.9 H (80.0-94.0) fL MCH 30.2 (27.0-31.0) pg MCHC 31.1 L (32.0-36.0) g/dL RDW 13.7 (12.0-15.0) % Plt Count 405 (130-450) 10^3/uL MPV 9.0 (7.4-11.4) fL Neut # (Auto) 17.3 H (1.5-6.6) 10^3/uL Lymph # (Auto) 0.8 L (1.5-3.5) 10^3/uL [place] # (Auto) 1.2 H (0.0-1.0) 10^3/uL Eos # (Auto) 0.0 (0.0-0.7) 10^3/uL Baso # (Auto) 0.0 (0.0-0.1) 10^3/uL Absolute Nucleated RBC 0.00 x10^3/uL Nucleated RBC % 0.0 /100WBC VBG pH 7.375 (7.31-7.41) Ionized Calcium 1.17 (1.15-1.33) mmol/L Sodium 139 (135-145) mmol/L Potassium 4.7 H (3.5-4.5) mmol/L Chloride 97 L (101-111) mmol/L Carbon Dioxide 42 H* (21-32) mmol/L Anion Gap 0.0 L (6-13) BUN 18 (6-20) mg/dL Creatinine 0.7 (0.6-1.3) mg/dL Estimated GFR (MDRD) 112 (>89) Glucose 140 H (74-104) mg/dL Calcium 8.8 (8.5-10.3) mg/dL Phosphorus 3.7 (2.5-5.0) mg/dL Magnesium 2.0 (1.7-2.3) mg/dL Troponin I High Sens (2.3-19.7) ng/L 04/06/23 Range/Units 05:00 WBC (4.8-10.8) x10^3/uL RBC (4.70-6.10) 10^6/uL Hgb (14.0-18.0) g/dL Hct (42.0-52.0) % MCV (80.0-94.0) fL MCH (27.0-31.0) pg MCHC (32.0-36.0) g/dL RDW (12.0-15.0) % Plt Count (130-450) 10^3/uL MPV (7.4-11.4) fL Neut # (Auto) (1.5-6.6) 10^3/uL Lymph # (Auto) (1.5-3.5) 10^3/uL [place] # (Auto) (0.0-1.0) 10^3/uL Eos # (Auto) (0.0-0.7) 10^3/uL Baso # (Auto) (0.0-0.1) 10^3/uL Absolute Nucleated RBC x10^3/uL Nucleated RBC % /100WBC VBG pH (7.31-7.41) Ionized Calcium (1.15-1.33) mmol/L Sodium (135-145) mmol/L Potassium (3.5-4.5) mmol/L Chloride (101-111) mmol/L Carbon Dioxide (21-32) mmol/L Anion Gap (6-13) BUN (6-20) mg/dL Creatinine (0.6-1.3) mg/dL Estimated GFR (MDRD) (>89) Glucose (74-104) mg/dL Calcium (8.5-10.3) mg/dL Phosphorus (2.5-5.0) mg/dL Magnesium (1.7-2.3) mg/dL Troponin I High Sens 7.1 (2.3-19.7) ng/L Assessment/Plan - Problem List (1) Acute on chronic respiratory failure with hypoxia Impression: Cause is multifactorail: from acute COPD exacerbation and his PNA. His resp viral panel is NEG Plan: Cont suppl O2. Remain in ICU since he is still needing to be put on BiPAP Cont to treat the underlying causes of his hypoxia Patient has oxygen dependent COPD and chronic respiratory failure and has responded well to BiPAP here in the inpatient setting. I ordered a home BiPAP machine to treat his COPD and chronic respiratory failure, and to reduce hospital readmissions. (2) COPD exacerbation Plan: Cont nebs, Solumedrol, Pulmicort, Montelukast and Mucinex Start titrating down the iv steroids (3) Community acquired Pneumonia Plan: Cont iv rocephin, azithromycin Await resp cultures to tailor antibx Cont Mucinex to help expectorate (4) Alcohol withdrawal His CIWA score is at 4-6 today Plan: Cont CIWA protocol with prn iv Ativan Start po Librium scheduled, start titrating the dose down Cont mvi, thiamine ivf (5) Alcohol abuse We do not definitely know the amt and rate of his alcohol intake yet. Yesterday he started telling me he drinks whiskey. He has received 2 L of Banana bag which were stopped when he awoke and started eating and taking liquids. Plan: Cont CIWA protocol Start po Librium scheduled, start titrating the dose down SW consult planned when he is medically stablilized (6) AMS IMPROVING Likely from alcohol withdrawal, needing Benzos and from hypoxia and hyppnatremia. He is much improved since using bipap, and is waking up from Benzos. He was in a chair OOB and worked with PT for the first time today Plan: Supportive care thru his alcohol withdrawal Cont PT and OT (7) Hyponatremia RESOLVED All labs were reviewed. Na normal for 3 days. Likely due to etoh abuse + potomania Plan: Continue IVF w/NS Cont monitoring BMP daily (8) Leukocytosis WBC is IMPROVING despite being on iv steroids. All labs were reviewed. This is most likely from high steroid doses ordered for his COPD exacerbation, but could be from the PNA as well. Plan: Await cx results, to tailor antibx Follow CBC daily (9) Thrombocytosis RESOLVED Likely acute inflammatory reaction and in setting of copd Plan: Cont Lovenox prophylaxis Monitor CBC daily (10) Tobacco use As per Hx Plan: Nicotine patch prn. I discussed smoking cessation w/ him on previous day
[2023-04-07] MEDS: SENNA 8.6 MG TABLET PO SCH (13:02)
[2023-04-07] MEDS: DOCUSATE SODIUM 250 MG CAPSULE PO SCH (13:02)
[2023-04-07] MEDS: polyethylene glycoL 3350 17 GM PACKET PO SCH (13:10)
--- NOTE | 2023-04-07 16:40 | PROVIDER PROGRESS NOTE ---
Subjective - Subjective Pt reports feeling: Improved (He notices slightly more strength every day, appetite is good. He tried to go without BiPAP last night, used nasal cannula at 2 L and tolerated it.) Objective - Vital Signs/Intake & Output Reviewed Vital Signs: Yes Vital Signs: Vital Signs Pulse Pulse Resp BP Pulse Ox O2 Flow Rate 04/07/23 16:00 98 26 H 136/67 H 94 2 04/07/23 15:35 92 24 2 04/07/23 15:00 98 27 H 131/78 H 93 2 04/07/23 14:00 96 20 136/74 H 97 2 04/07/23 13:00 95 20 117/65 95 2 Intake & Output: Intake & Output 04/04/23 04/05/23 04/06/23 04/07/23 23:59 23:59 23:59 23:59 Intake Total 3106.2 2628 2705.5 2159 Output Total 1200 1450 2507 2150 Balance 1906.2 1178 198.5 9 - Objective General Appearance: positive: No acute distress, Alert, Other (Sitting in chair, tripoding) Eyes Bilateral: positive: EOMI, No lid inflammation ENT: positive: ENT inspection nml, Other (Face is flushed. Hair disheveled) Neck: positive: Nml inspection Respiratory: positive: Wheezes (Poor air movement in lung saucedo, scattered wheezes, no rhonchi) Cardiovascular: positive: Regular rate & rhythm (Distant heart sounds due to COPD) Abdomen: positive: Non-tender Skin: positive: Other (Flushed and poorly kempt) Extremities: positive: Non-tender, No pedal edema Neurologic/Psychiatric: positive: Oriented x3, CN's nml (2-12), Motor nml, Other (No tremor, no nystagmus) - Lab Results Fish Bones: 04/07/23 04:12 04/07/23 04:12 Other Labs: Lab Results x24hrs 04/07/23 04/07/23 04/07/23 Range/Units 04:12 04:12 04:12 WBC 19.6 H (4.8-10.8) x10^3/uL RBC 3.25 L (4.70-6.10) 10^6/uL Hgb 9.8 L (14.0-18.0) g/dL Hct 31.5 L (42.0-52.0) % MCV 96.9 H (80.0-94.0) fL MCH 30.2 (27.0-31.0) pg MCHC 31.1 L (32.0-36.0) g/dL RDW 13.7 (12.0-15.0) % Plt Count 405 (130-450) 10^3/uL MPV 9.0 (7.4-11.4) fL Neut # (Auto) 17.3 H (1.5-6.6) 10^3/uL Lymph # (Auto) 0.8 L (1.5-3.5) 10^3/uL [place] # (Auto) 1.2 H (0.0-1.0) 10^3/uL Eos # (Auto) 0.0 (0.0-0.7) 10^3/uL Baso # (Auto) 0.0 (0.0-0.1) 10^3/uL Absolute Nucleated RBC 0.00 x10^3/uL Nucleated RBC % 0.0 /100WBC VBG pH 7.375 (7.31-7.41) Ionized Calcium 1.17 (1.15-1.33) mmol/L Sodium 139 (135-145) mmol/L Potassium 4.7 H (3.5-4.5) mmol/L Chloride 97 L (101-111) mmol/L Carbon Dioxide 42 H* (21-32) mmol/L Anion Gap 0.0 L (6-13) BUN 18 (6-20) mg/dL Creatinine 0.7 (0.6-1.3) mg/dL Estimated GFR (MDRD) 112 (>89) Glucose 140 H (74-104) mg/dL Calcium 8.8 (8.5-10.3) mg/dL Phosphorus 3.7 (2.5-5.0) mg/dL Magnesium 2.0 (1.7-2.3) mg/dL Assessment/Plan - Problem List (1) Acute on chronic respiratory failure with hypoxia Impression: Cause is multifactorail: from acute COPD exacerbation and his PNA. His resp viral panel is NEG. Patient has oxygen dependent COPD and chronic respiratory failure and has responded well to BiPAP here in the inpatient setting. I ordered a home BiPAP machine to treat his COPD and chronic respiratory failure, and to reduce hospital readmissions. Overnight, he was able to tolerate 2 L/min nasal cannula and not BIPAP Plan: Cont suppl O2. Remain in ICU since he is still needing to be put on BiPAP intermittently Cont to treat the underlying causes of his hypoxia (2) COPD exacerbation Plan: Cont nebs, Solumedrol, Pulmicort, Montelukast and Mucinex Conttitrating down the iv steroids (3) Community acquired Pneumonia Plan: Cont iv rocephin, azithromycin Await resp cultures to tailor antibx Cont Mucinex to help expectorate (4) Alcohol withdrawal His CIWA score is low Plan: Will stop CIWA protocol Cont titrating down the Librium dose Cont mvi, thiamine ivf (5) Alcohol abuse We do not definitely know the amt and rate of his alcohol intake yet. Yesterday he started telling me he drinks whiskey. He has received 2 L of Banana bag which were stopped when he awoke and started eating and taking liquids. Plan: Will stop CIWA protocol Cont titrating down the Librium dose Continue working with PT and OT. They have recommended SNF for rehab SW consult planned when he is medically stablilized (6) AMS IMPROVING Likely from alcohol withdrawal, needing Benzos and from hypoxia and hyppnatremia. He is much improved since using bipap, and is waking up from Benzos. He is getting up into a chair OOB and worked with PT again. They have recommended SNF for rehab Plan: Supportive care thru his alcohol withdrawal Cont PT and OT (7) Hyponatremia RESOLVED All labs were reviewed. Na normal for 3 days. Likely due to etoh abuse + potomania Plan: Continue IVF w/NS Cont monitoring BMP daily (8) Leukocytosis WBC is IMPROVING despite being on iv steroids. All labs were reviewed. This is most likely from high steroid doses ordered for his COPD exacerbation, but could be from the PNA as well. Plan: Await cx results, to tailor antibx Follow CBC daily (9) Thrombocytosis RESOLVED Likely acute inflammatory reaction and in setting of copd Plan: Cont Lovenox prophylaxis Monitor CBC daily (10) Tobacco use As per Hx Plan: Nicotine patch prn. I discussed smoking cessation w/ him on previous day
[2023-04-07] MEDS: guaiFENesin/CODEINE 5 ML UDC PO PRN (19:27)
[2023-04-07] MEDS: chlordiazePOXIDE 5 MG CAPSULE PO SCH (20:29)
[2023-04-08 04:40] LABS: BASOPHILS % (AUTO) 0.2 %; HCT - HEMATOCRIT 31.6 % (42.0-52.0); HGB - HEMOGLOBIN 9.6 g/dL (14.0-18.0); LYMPHOCYTES # (AUTO) 0.7 10^3/uL (1.5-3.5); LYMPHOCYTES % (AUTO) 3.7 %; MEAN CORPUSCULAR HEMOGLOBIN 29.5 pg (27.0-31.0); MEAN CORPUSCULAR HGB CONC 30.4 g/dL (32.0-36.0); MEAN CORPUSCULAR VOLUME 97.2 fL (80.0-94.0); MEAN PLATELET VOLUME 8.6 fL (7.4-11.4); MONOCYTES % (AUTO) 5.4 %; NEUTROPHILS # (AUTO) 16.8 10^3/uL (1.5-6.6); NEUTROPHILS % (AUTO) 89.5 %; PLT - PLATELET COUNT 378 10^3/uL (130-450); RED BLOOD COUNT 3.25 10^6/uL (4.70-6.10); RED CELL DISTRIBUTION WIDTH 13.8 % (12.0-15.0); WHITE BLOOD COUNT 18.7 x10^3/uL (4.8-10.8)
[2023-04-08 04:58] LABS: CALCIUM, IONIZED 1.12 mmol/L (1.15-1.33); VBG PH 7.435 (7.31-7.41)
[2023-04-08 04:59] LABS: PHOSPHORUS 4.3 mg/dL (2.5-5.0)
[2023-04-08 05:05] LABS: CALCIUM 8.9 mg/dL (8.5-10.3); CREATININE 0.8 mg/dL (0.6-1.3); POTASSIUM 4.8 mmol/L (3.5-4.5)
--- NOTE | 2023-04-08 08:28 | PROVIDER PROGRESS NOTE ---
Assessment/Plan - Problem List (1) Acute on chronic respiratory failure with hypoxia Assessment/Plan: Cause is multifactorail: from acute COPD exacerbation and his PNA. His resp viral panel is NEG. Patient has oxygen dependent COPD and chronic respiratory failure and needed BiPAP during this adm. I ordered a home BiPAP machine to treat his COPD and chronic respiratory failure, and to reduce hospital readmissions, however, he has not needed BIPAP the past 2 nights. He was able to tolerate 2 L/min nasal cannula and not BIPAP Plan: Will transfer out of the ICU to [facility] today, no telem needed Cont to treat the underlying causes of his hypoxia (2) COPD exacerbation Plan: Cont nebs, Solumedrol, Pulmicort, Montelukast and Mucinex Cont titrating down the iv steroids (3) Community acquired Pneumonia Plan: Cont iv rocephin for 7 days, and he has completed 1500 mg of azithromycin Await resp cultures to tailor antibx Cont Mucinex to help expectorate (4) Alcohol withdrawal His CIWA score is low Plan: Will stop CIWA protocol, stop prn iv Ativan Cont titrating down the Librium dose Cont mvi, thiamine ivf (5) Alcohol abuse He drinks whiskey. He was in signif withdrawal at adm, needed to be in ICU for high dose iv Ativan management on the CIWA protocol He got Banana bags which were stopped when he awoke and started eating and taking liquids. Plan: Will stop CIWA protocol Cont titrating down the Librium dose Continue working with PT and OT. They have recommended SNF for rehab SW consult now that he is medically stablilized (6) AMS RESOLVED This was felt to be from alcohol withdrawal, needing Benzos and from hypoxia and hyponatremia. He improved on BIPAP. Then improved even more after alcohol withdrawal He is working with PT/OT, getting up into a chair OOB and worked with PT again. They have recommended SNF for rehab Plan: Cont PT and OT and rehab at a SNF is planned (7) Hyponatremia RESOLVED All labs were reviewed. Na normal for 3 days. Likely due to etoh abuse + potomania Plan: Continue IVF w/NS Cont monitoring BMP daily (8) Leukocytosis WBC is IMPROVING despite being on iv steroids. All labs were reviewed. This is most likely from high steroid doses ordered for his COPD exacerbation, but could have been from the PNA as well. Plan: Await cx results, to tailor antibx Follow CBC daily (9) Thrombocytosis RESOLVED Likely acute inflammatory reaction and in setting of copd Plan: Cont Lovenox prophylaxis Monitor CBC daily (10) Tobacco use As per Hx. I discussed smoking cessation w/ him on previous day. Daughter has prepared house with signs about No Smoking, she told his RN Plan: Nicotine patch prn. - Current Meds Current Meds: Current Medications Generic Name Dose Route Start Last Admin Trade Name Freq PRN Reason Stop Dose Admin Acetaminophen 325 mg 04/03/23 03:42 04/06/23 03:03 Acetaminophen 325 Mg Tablet PO 325 mg Q4HR PRN Administration Pain 1 to 4, or Fever Albuterol/Ipratropium 3 ml 04/03/23 07:00 04/08/23 07:27 Ipratropium/Albuterol 3 Ml Neb INH Not Given RTQID ELISABET Aspirin 81 mg 04/03/23 09:00 04/07/23 08:04 Aspirin Ec 81 Mg Tablet PO 81 mg DAILY ELISABET Administration Budesonide 0.5 mg 04/03/23 19:00 04/08/23 07:27 Budesonide 0.5 Mg/2 Ml Neb INH Not Given RTBID ELISABET Chlordiazepoxide HCl 5 mg 04/07/23 21:00 04/07/23 20:29 Chlordiazepoxide 5 Mg Capsule PO 5 mg BID ELISABET Administration Cholecalciferol 25 mcg 04/03/23 09:00 04/07/23 08:03 Cholecalciferol 25 Mcg Tablet PO 25 mcg DAILY ELISABET Administration Docusate Sodium 250 - 500 mg 04/07/23 13:00 04/07/23 13:02 Docusate Sodium 250 Mg Capsule PO Not Given DAILY ELISABET Enoxaparin Sodium 40 mg 04/04/23 09:00 04/07/23 08:05 Enoxaparin 40 Mg/0.4 Ml Syringe SUBQ 40 mg DAILY ELISABET Administration Formoterol Fumarate 20 mcg 04/03/23 19:00 04/08/23 07:27 Formoterol Fumarate Neb 20 Mcg/2 Ml INH Not Given RTBID ELISABET Guaifenesin 600 mg 04/03/23 09:00 04/07/23 20:29 Guaifenesin 600 Mg Tablet PO 600 mg BID ELISABET Administration Guaifenesin/Codeine Phosphate 5 ml 04/07/23 19:00 04/08/23 04:58 Guaifenesin/Codeine 5 Ml Udc PO 5 ml Q6HR PRN Administration Cough Ceftriaxone Sodium 1 gm/ 100 mls @ 200 mls/hr 04/03/23 09:00 04/07/23 12:29 Sodium Chloride IV 04/10/23 00:01 Infused DAILY ELISABET Infusion Lactobacillus Rhamnosus 1 cap 04/03/23 09:00 04/07/23 08:04 Lactobacillus Rhamnosus Gg Capsule PO 04/10/23 00:01 1 cap DAILY ELISABET Administration Magnesium Oxide 400 mg 04/03/23 09:00 04/07/23 08:04 Magnesium Oxide 400 Mg Tablet PO 400 mg DAILY ELISABET Administration Methylprednisolone 40 mg 04/03/23 22:00 04/08/23 06:05 Methylprednisolone Succinate 40 Mg/Ml Vial IVP 40 mg TID ELISABET Administration Metoprolol Succinate 12.5 mg 04/03/23 09:00 04/07/23 08:04 Metoprolol Succinate 25 Mg Tablet PO 12.5 mg DAILY ELISABET Administration Multivitamins 1 tab 04/03/23 08:00 04/07/23 08:04 Multivitamin Tablet PO 1 tab DAILYWM ELISABET Administration Ondansetron HCl 4 mg 04/02/23 21:16 04/06/23 17:32 Ondansetron 4 Mg/2 Ml Vial IVP 4 mg Q6HR PRN Administration Nausea / Vomiting Pantoprazole Sodium 40 mg 04/05/23 08:00 04/07/23 08:03 Pantoprazole 40 Mg Tablet PO 40 mg QDBREAKFAST ELISABET Administration Polyethylene Glycol 17 gm 04/07/23 13:00 04/07/23 13:10 Polyethylene Glycol 3350 17 Gm Packet PO 17 gm DAILY ELISABET Administration Senna 8.6 - 17.2 mg 04/07/23 13:00 04/07/23 13:02 Senna 8.6 Mg Tablet PO Not Given DAILY ELISABET Sertraline HCl 100 mg 04/04/23 12:00 04/07/23 08:03 Sertraline 25 Mg Tablet PO 100 mg DAILY ELISABET Administration Sodium Chloride 10 ml 04/03/23 09:00 04/08/23 03:13 Sodium Chloride Flush 0.9% 10 Ml Syringe IVP Not Given 0100,0900,1700 ELISABET Sodium Chloride 10 ml 04/03/23 03:42 04/08/23 06:05 Sodium Chloride Flush 0.9% 10 Ml Syringe IVP 10 ml PRN PRN Administration NEEDED PER PROVIDER ORDERS Thiamine HCl 100 mg 04/05/23 11:00 04/07/23 08:04 Thiamine 100 Mg Tablet PO 100 mg DAILY ELISABET Administration Trazodone HCl 100 mg 04/04/23 11:52 04/07/23 22:06 Trazodone 50 Mg Tablet PO 100 mg HS PRN Administration Insomnia - Lab Result Fish Bone Diagrams: 04/08/23 04:30 04/08/23 04:30 - Additional Planning My Orders: My Active Orders 04/07/23 11:33 Shower [RC] PRN 04/07/23 13:00 Docusate Sodium 250Mg Capsule [Colace 250Mg Capsule] 250 - 500 mg PO DAILY Senna [Senokot] 8.6 - 17.2 mg PO DAILY polyethylene glycoL 3350 [Miralax] 17 gm PO DAILY 04/07/23 19:00 guaiFENesin/CODEINE [Robitussin AC] 5 ml PO Q6HR PRN 04/07/23 21:00 chlordiazePOXIDE [Librium] 5 mg PO BID 04/08/23 07:43 Transfer [Admit \ Transfer \ Status] [RC] .ONCE 04/08/23 07:44 Telemetry-Discontinue [RC] .ONCE Vital Signs [RC] QSHIFT 04/08/23 09:00 Losartan [Cozaar] 50 mg PO DAILY 04/09/23 05:00 BMP - BASIC METABOLIC PANEL [CHEM] DAILYLAB CBC - COMP BLD CT W/AUTO DIFF [HEME] DAILYLAB Subjective - Subjective Patient Reports: Resting Comfortably, No Complaints Objective Vital Signs: Vital Signs - 24 hr 04/07/23 04/07/23 04/07/23 09:00 10:00 10:15 Temperature Heart Rate Heart Rate [ 95 87 Monitoring electrodes] Respiratory 29 H 31 H Rate Blood Pressure 108/46 L 132/68 H [Right Brachial artery] O2 Saturation 93 92 If not protocol 2 2 2 : Oxygen Flow, liters/minute 04/07/23 04/07/23 04/07/23 11:00 11:31 12:00 Temperature 98.3 C H Heart Rate 84 Heart Rate [ 86 106 H Monitoring electrodes] Respiratory 24 14 28 H Rate Blood Pressure 122/56 L 133/73 H [Right Brachial artery] O2 Saturation 92 92 If not protocol 2 2 2 : Oxygen Flow, liters/minute 04/07/23 04/07/23 04/07/23 13:00 14:00 15:00 Temperature Heart Rate Heart Rate [ 95 96 98 Monitoring electrodes] Respiratory 20 20 27 H Rate Blood Pressure 117/65 136/74 H 131/78 H [Right Brachial artery] O2 Saturation 95 97 93 If not protocol 2 2 2 : Oxygen Flow, liters/minute 04/07/23 04/07/23 04/07/23 15:35 16:00 17:00 Temperature Heart Rate 92 Heart Rate [ 98 Monitoring electrodes] Respiratory 24 26 H Rate Blood Pressure 136/67 H [Right Brachial artery] O2 Saturation 94 If not protocol 2 2 2 : Oxygen Flow, liters/minute 04/07/23 04/07/23 04/07/23 18:04 18:38 19:00 Temperature Heart Rate 105 H Heart Rate [ 94 102 H Monitoring electrodes] Respiratory 20 22 Rate Blood Pressure 118/93 H 117/52 L [Right Brachial artery] O2 Saturation 97 92 If not protocol 2 2 2 : Oxygen Flow, liters/minute 04/07/23 04/07/23 04/07/23 20:00 21:00 22:00 Temperature 36.9 C Heart Rate Heart Rate [ 95 89 83 Monitoring electrodes] Respiratory 27 H 17 19 Rate Blood Pressure 122/60 137/74 H 129/62 [Right Brachial artery] O2 Saturation 94 96 96 If not protocol 2 2 2 : Oxygen Flow, liters/minute 04/07/23 04/08/23 04/08/23 23:00 00:00 01:00 Temperature 36.6 C Heart Rate Heart Rate [ 82 81 79 Monitoring electrodes] Respiratory 27 H 23 20 Rate Blood Pressure 140/74 H 142/76 H 149/85 H [Right Brachial artery] O2 Saturation 95 97 97 If not protocol 2 2 2 : Oxygen Flow, liters/minute 04/08/23 04/08/23 04/08/23 02:00 03:00 04:00 Temperature 36.9 C Heart Rate Heart Rate [ 89 86 80 Monitoring electrodes] Respiratory 20 21 21 Rate Blood Pressure 131/62 H 123/68 143/70 H [Right Brachial artery] O2 Saturation 93 95 96 If not protocol 2 2 2 : Oxygen Flow, liters/minute 04/08/23 04/08/2304/08/24 05:00 06:00 07:00 Temperature 36.9 C Heart Rate Heart Rate [ 81 81 76 Monitoring electrodes] Respiratory 23 20 22 Rate Blood Pressure 132/64 H 121/65 118/70 [Right Brachial artery] O2 Saturation 96 96 97 If not protocol 2 2 2 : Oxygen Flow, liters/minute Oxygen O2 Source [With Activity] Nasal cannula O2 Source Nasal cannula Oxygen Flow Rate 2 I&O (Last 24 Hrs): Intake and Output Totals x24h 04/06/23 04/07/23 04/08/23 23:59 23:59 23:59 Intake Total 2705.5 4694.167 879.167 Output Total 2507 2600 1100 Balance 198.5 2094.167 -220.833 General: Alert, Oriented x3, Other (Disheveled) HEENT: EOMI, Mucous membr. moist/pink Neck: Supple Neuro: Alert, Non Focal Cardiovascular: Regular rate Respiratory: Other (Poor air mvm in all lung saucedo, but no wheezing) Abdomen: Soft Extremities: No clubbing, No edema, No tenderness/swelling - Results Results: Laboratory Results WBC 18.7 x10^3/uL (4.8-10.8) H 04/08/23 04:30 RBC 3.25 10^6/uL (4.70-6.10) L 04/08/23 04:30 Hgb 9.6 g/dL (14.0-18.0) L 04/08/23 04:30 Hct 31.6 % (42.0-52.0) L 04/08/23 04:30 MCV 97.2 fL (80.0-94.0) H 04/08/23 04:30 MCH 29.5 pg (27.0-31.0) 04/08/23 04:30 MCHC 30.4 g/dL (32.0-36.0) L 04/08/23 04:30 RDW 13.8 % (12.0-15.0) 04/08/23 04:30 Plt Count 378 10^3/uL (130-450) 04/08/23 04:30 MPV 8.6 fL (7.4-11.4) 04/08/23 04:30 Neut # (Auto) 16.8 10^3/uL (1.5-6.6) H 04/08/23 04:30 Lymph # (Auto) 0.7 10^3/uL (1.5-3.5) L 04/08/23 04:30 Stone # (Auto) 1.0 10^3/uL (0.0-1.0) 04/08/23 04:30 Eos # (Auto) 0.0 10^3/uL (0.0-0.7) 04/08/23 04:30 Baso # (Auto) 0.0 10^3/uL (0.0-0.1) 04/08/23 04:30 Absolute Nucleated RBC 0.00 x10^3/uL 04/08/23 04:30 Total Counted 100 04/06/23 04:17 Band Neuts % (Manual) 5 % (0-10) 04/06/23 04:17 Reactive Lymphs % (Man) 3 % 04/05/23 10:25 Abnorm Lymph % (Manual) 0 % 04/06/23 04:17 Metamyelocytes % 2 % (-0) H 04/05/23 04:41 Myelocytes % 1 % (-0) H 04/05/23 10:25 Nucleated RBC % 0.0 /100WBC 04/08/23 04:30 Neutrophils # (Manual) 19.7 10^3/uL (1.5-6.6) H 04/06/23 04:17 Lymphocytes # (Manual) 0.6 10^3/uL (1.5-3.5) L 04/06/23 04:17 Monocytes # (Manual) 0.6 10^3/uL (0.0-1.0) 04/06/23 04:17 Eosinophils # (Manual) 0.0 10^3/uL (0-0.7) 04/06/23 04:17 Basophils # (Manual) 0.0 10^3/uL (0-0.1) 04/06/23 04:17 Differential Comment MANUAL DIFFERENTIAL 04/06/23 04:17 Platelet Estimate NORMAL (130-450,000) (NORMAL) 04/06/23 04:17 Platelet Morphology 1+ GIANT PLATELETS (NORMAL) 04/02/23 17:00 RBC Morph Micro Appear NORMAL APPEARANCE (NORMAL) 04/06/23 04:17 PT 12.1 secs (9.9-12.6) 04/04/23 04:24 INR 1.1 (0.8-1.2) 04/04/23 04:24 Bld Gas Analysis Time 0646 04/05/23 06:46 Sample Site RIGHT RADIAL 04/05/23 06:46 ABG pH 7.39 (7.35-7.45) 04/05/23 06:46 ABG pCO2 67 mmHg (34-45) H* 04/05/23 06:46 ABG pO2 135 mmHg (80-100) H 04/05/23 06:46 ABG HCO3 39.4 mmol/L (22.0-26.0) H 04/05/23 06:46 ABG Total CO2 41.5 MMOL/L (21.0-29.0) H* 04/05/23 06:46 ABG O2 Saturation 99 % (94-98) H 04/05/23 06:46 ABG Base Excess 12.2 mmol/L (-2.0-3.0) H 04/05/23 06:46 Ganga Test POSITIVE 04/05/23 06:46 VBG pH 7.435 (7.31-7.41) H 04/08/23 04:30 VBG pCO2 71.7 mmHg (41-51) H 04/03/23 05:24 VBG pO2 56.5 mmHg (25-47) H 04/03/23 05:24 VBG HCO3 31.7 mmol/L (23-28) H 04/03/23 05:24 VBG Total CO2 33.9 mmol/L (24-29) H 04/03/23 05:24 VBG O2 Saturation 87.8 % (60-80) H 04/03/23 05:24 VBG Base Excess 2.8 mmol/L (-2 - +2) H 04/03/23 05:24 Ionized Calcium 1.12 mmol/L (1.15-1.33) L 04/08/23 04:30 Respiration Rate 14 b/min 04/03/23 12:20 O2 Delivery Device BiPAP 04/05/23 06:46 FiO2 40.00 04/05/23 06:46 EPAP 5 cmH2O 04/05/23 06:46 IPAP 12 cmH2O 04/05/23 06:46 Sodium 140 mmol/L (135-145) 04/08/23 04:30 Potassium 4.8 mmol/L (3.5-4.5) H 04/08/23 04:30 Chloride 97 mmol/L (101-111) L 04/08/23 04:30 Carbon Dioxide 40 mmol/L (21-32) H* 04/08/23 04:30 Anion Gap 3.0 (6-13) L 04/08/23 04:30 BUN 23 mg/dL (6-20) H 04/08/23 04:30 Creatinine 0.8 mg/dL (0.6-1.3) 04/08/23 04:30 Estimated GFR (MDRD) 96 (>89) 04/08/23 04:30 Glucose 147 mg/dL (74-104) H 04/08/23 04:30 Estimat Average Glucose 114 mg/dL (70-100) H 04/03/23 05:24 Hemoglobin A1c % 5.6 % (4.27-6.07) 04/03/23 05:24 Lactic Acid 0.5 mmol/L (0.5-2.2) 04/02/23 17:00 Calcium 8.9 mg/dL (8.5-10.3) 04/08/23 04:30 Phosphorus 4.3 mg/dL (2.5-5.0) 04/08/23 04:30 Magnesium 2.0 mg/dL (1.7-2.3) 04/08/23 04:30 Total Bilirubin 0.2 mg/dL (0.2-1.0) 04/04/23 04:24 AST 10 IU/L (10-42) 04/04/23 04:24 ALT 14 IU/L (10-60) 04/04/23 04:24 Alkaline Phosphatase 52 IU/L (42-121) 04/04/23 04:24 Ammonia 32.0 umol/L (18-72) 04/03/23 06:15 Lactate Dehydrogenase 112 IU/L (140-271) L 04/03/23 05:24 Troponin I High Sens 7.1 ng/L (2.3-19.7) 04/06/23 05:00 Total Protein 5.8 g/dL (6.4-8.9) L 04/04/23 04:24 Albumin 3.2 g/dL (3.2-5.5) 04/04/23 04:24 Globulin 2.6 g/dL (2.1-4.2) 04/04/23 04:24 Albumin/Globulin Ratio 1.2 (1.0-2.2) 04/04/23 04:24 Triglycerides 108 mg/dL (48-352) 04/03/23 05:24 Cholesterol 179 mg/dL (-200) 04/03/23 05:24 LDL Cholesterol, Calc 88 mg/dL (-129) 04/03/23 05:24 VLDL Cholesterol 22 mg/dL 04/03/23 05:24 HDL Cholesterol 69 mg/dL (60-) 04/03/23 05:24 LDL/HDL Ratio 1.3 (<3.6) 04/03/23 05:24 Cholesterol/HDL Ratio 2.6 (<5.0) 04/03/23 05:24 TSH 0.54 uIU/mL (0.34-5.60) 04/03/23 05:24 Nasal Adenovirus (PCR) NOT DETECTED 04/02/23 17:07 Nasal B. parapertussis DNA (PCR) NOT DETECTED 04/02/23 17:07 Nasal Coronavir 229E PCR NOT DETECTED 04/02/23 17:07 Nasal Coronavir HKU1 PCR NOT DETECTED 04/02/23 17:07 Nasal Coronavir NL63 PCR NOT DETECTED 04/02/23 17:07 Nasal Coronavir OC43 PCR NOT DETECTED 04/02/23 17:07 Nasal Enterovir/Rhinovir PCR NOT DETECTED 04/02/23 17:07 Nasal Influenza B PCR NOT DETECTED 04/02/23 17:07 Nasal Influenza A PCR NOT DETECTED 04/02/23 17:07 Nasal Parainfluen 1 PCR NOT DETECTED 04/02/23 17:07 Nasal Parainfluen 2 PCR NOT DETECTED 04/02/23 17:07 Nasal Parainfluen 3 PCR NOT DETECTED 04/02/23 17:07 Nasal Parainfluen 4 PCR NOT DETECTED 04/02/23 17:07 Nasal RSV (PCR) NOT DETECTED 04/02/23 17:07 Nasal Screen MRSA (PCR) NEGATIVE (NEGATIVE) 04/03/23 05:15 Nasal B.pertussis DNA PCR NOT DETECTED 04/02/23 17:07 Nasal C.pneumoniae (PCR) NOT DETECTED 04/02/23 17:07 Lenin Human Metapneumo PCR NOT DETECTED 04/02/23 17:07 Nasal M.pneumoniae (PCR) NOT DETECTED 04/02/23 17:07 Nasal SARS-CoV-2 (PCR) NOT DETECTED 04/02/23 17:07 Ethyl Alcohol < 10.0 mg/dL 04/02/23 17:00 - Procedures Procedures: Procedures CATARAC PHACOEMULS/ASPIR (07/16/14) EXCISION OF ASCENDING COLON, ENDO (08/21/18) EXCISION OF DESCENDING COLON, ENDO (08/21/18) EXCISION OF SIGMOID COLON, ENDO (08/21/18) EXCISION OF TRANSVERSE COLON, ENDO (08/21/18) INSERT LENS AT CATAR EXT (07/16/14) REPLACEMENT OF RIGHT LENS WITH SYNTH SUB, PERC APPROACH (12/24/14)
[2023-04-08] MEDS: LOSARTAN 50 MG TABLET PO SCH (08:49)
[2023-04-08] MEDS ORDERED: BENZOCAINE/MENTHOL LOZENGE MM PRN (15:14)
[2023-04-09 05:27] LABS: BASOPHILS % (AUTO) 0.1 %; HCT - HEMATOCRIT 31.2 % (42.0-52.0); HGB - HEMOGLOBIN 9.5 g/dL (14.0-18.0); LYMPHOCYTES # (AUTO) 0.8 10^3/uL (1.5-3.5); LYMPHOCYTES % (AUTO) 4.2 %; MEAN CORPUSCULAR HEMOGLOBIN 29.4 pg (27.0-31.0); MEAN CORPUSCULAR HGB CONC 30.4 g/dL (32.0-36.0); MEAN CORPUSCULAR VOLUME 96.6 fL (80.0-94.0); MEAN PLATELET VOLUME 9.1 fL (7.4-11.4); MONOCYTES # (AUTO) 1.2 10^3/uL (0.0-1.0); MONOCYTES % (AUTO) 6.3 %; NEUTROPHILS # (AUTO) 16.5 10^3/uL (1.5-6.6); NEUTROPHILS % (AUTO) 88.1 %; PLT - PLATELET COUNT 394 10^3/uL (130-450); RED BLOOD COUNT 3.23 10^6/uL (4.70-6.10); RED CELL DISTRIBUTION WIDTH 13.7 % (12.0-15.0); WHITE BLOOD COUNT 18.7 x10^3/uL (4.8-10.8)
[2023-04-09 06:17] LABS: CREATININE 0.8 mg/dL (0.6-1.3); POTASSIUM 4.6 mmol/L (3.5-4.5)
--- NOTE | 2023-04-09 07:55 | PROVIDER PROGRESS NOTE ---
Assessment/Plan - Problem List (1) Acute on chronic respiratory failure with hypoxia Assessment/Plan: Cause is multifactorail: from acute COPD exacerbation and his PNA. His resp viral panel is NEG. Patient has oxygen dependent COPD and chronic respiratory failure and needed BiPAP during this adm. I ordered a home BiPAP machine to treat his COPD and chronic respiratory failure, and to reduce hospital readmissions, however, he has not needed BIPAP the past 2 nights. He was able to tolerate 2 L/min nasal cannula and not BIPAP Plan: Will transfer out of the ICU to [facility] today, no telem needed Cont to treat the underlying causes of his hypoxia He will need to go to SNF with supplemental O2 (2) COPD exacerbation Plan: Cont nebs, Solumedrol, Pulmicort, Montelukast and Mucinex Cont titrating down the iv steroids (3) Community acquired Pneumonia Plan: Cont iv rocephin for 7 days, and he has completed 1500 mg of azithromycin Await resp cultures to tailor antibx Cont Mucinex to help expectorate (4) Alcohol withdrawal His CIWA score is low. I stopped CIWA protocol on 04/08, and stopped prn iv Ativan Plan: Cont titrating down the Librium dose Cont mvi, thiamine ivf (5) Alcohol abuse He drinks whiskey. He was in signif withdrawal at adm, needed to be in ICU for high dose iv Ativan management on the CIWA protocol He got Banana bags which were stopped when he awoke and started eating and taki ng liquids. I stopped CIWA protocol on 04/08 Plan: Cont titrating down the Librium dose Continue working with PT and OT. They have recommended SNF for rehab SW consult now that he is medically stablilized I anticipate discharge soon (6) Prerenal azotemia Assessment/Plan: All labs were reviewed. Yesterday and today he has BUN/creatinine ratio greater than 20 His IV NS was being tapered down to off and stopped yesterday Plan: I will give him 1 L of D5LR today Avoid diuretics and encourage p.o. fluids Follow BMP daily I anticipate discharge soon, possibly tomorrow if the prerenal azotemia is corrected (7) HTN Assessment/Plan: He was on lisinopril on his home med list. Plan: Due to continued coughing, causing sore throat, I stopped his GIANA inhibitor and change him to ARB, Losartan and plan to discharg him on Losartan, not Lisonopril (8) Nausea Assessment/Plan: Yesterday he was nauseated after eating meals. I ordered prn Zofran trans lingual He is not a diabetic to consider that he has gastroparesis to need Reglan I am concerned the most likely cause is gastritis from his alcoholism He said this is been going on for several months and does not see a pattern of what causes it. He just waits it out at home Plan: Cont to treat nausea symptomatically Cont Pepcid or Protonix (9) Tobacco use As per Hx. I discussed smoking cessation w/ him on previous day. Daughter has apparently prepared house with signs about No Smoking, she told his RN Plan: Nicotine patch prn. (10) Hyponatremia RESOLVED All labs were reviewed. Na normal for 3 days. Likely due to etoh abuse + potomania Plan: Continue IVF w/NS Cont monitoring BMP daily (11) Thrombocytosis RESOLVED Likely acute inflammatory reaction and in setting of copd Plan: Cont Lovenox prophylaxis Monitor CBC daily (12) AMS RESOLVED This was felt to be from alcohol withdrawal, needing Benzos and from hypoxia and hyponatremia. He improved on BIPAP. Then improved even more after alcohol withdrawal He is working with PT/OT, getting up into a chair OOB and worked with PT again. They have recommended SNF for rehab Plan: Cont PT and OT and rehab at a SNF is planned - Current Meds Current Meds: Current Medications Generic Name Dose Route Start Last Admin Trade Name Freq PRN Reason Stop Dose Admin Acetaminophen 325 mg 04/03/23 03:42 04/06/23 03:03 Acetaminophen 325 Mg Tablet PO 325 mg Q4HR PRN Administration Pain 1 to 4, or Fever Albuterol/Ipratropium 3 ml 04/03/23 07:00 04/09/23 07:35 Ipratropium/Albuterol 3 Ml Neb INH 3 ml RTQID ELISABET Administration Aspirin 81 mg 04/03/23 09:00 04/08/23 08:39 Aspirin Ec 81 Mg Tablet PO 81 mg DAILY ELISABET Administration Budesonide 0.5 mg 04/03/23 19:00 04/09/23 07:35 Budesonide 0.5 Mg/2 Ml Neb INH 0.5 mg RTBID ELISABET Administration Chlordiazepoxide HCl 5 mg 04/07/23 21:00 04/08/23 20:51 Chlordiazepoxide 5 Mg Capsule PO 04/10/23 15:00 5 mg BID ELISABET Administration Cholecalciferol 25 mcg 04/03/23 09:00 04/08/23 08:39 Cholecalciferol 25 Mcg Tablet PO 25 mcg DAILY ELISABET Administration Docusate Sodium 250 - 500 mg 04/07/23 13:00 04/08/23 08:49 Docusate Sodium 250 Mg Capsule PO Not Given DAILY [facility] Enoxaparin Sodium 40 mg 04/04/23 09:00 04/08/23 08:41 Enoxaparin 40 Mg/0.4 Ml Syringe SUBQ 40 mg DAILY ELISABET Administration Formoterol Fumarate 20 mcg 04/03/23 19:00 04/09/23 07:35 Formoterol Fumarate Neb 20 Mcg/2 Ml INH 20 mcg RTBID [facility] Administration Guaifenesin 600 mg 04/03/23 09:00 04/08/23 20:51 Guaifenesin 600 Mg Tablet PO 600 mg BID ELISABET Administration Guaifenesin/Codeine Phosphate 5 ml 04/07/23 19:00 04/09/23 06:42 Guaifenesin/Codeine 5 Ml Udc PO 5 ml Q6HR PRN Administration Cough Ceftriaxone Sodium 1 gm/ 100 mls @ 200 mls/hr 04/03/23 09:00 04/08/23 13:06 Sodium Chloride IV 04/10/23 00:01 Infused DAILY [facility] Infusion Lactobacillus Rhamnosus 1 cap 04/03/23 09:00 04/08/23 08:39 Lactobacillus Rhamnosus Gg Capsule PO 04/10/23 00:01 1 cap DAILY LEISABET Administration Losartan Potassium 50 mg 04/08/23 09:00 04/08/23 08:49 Losartan 50 Mg Tablet PO 50 mg DAILY ELISABET Administration Magnesium Oxide 400 mg 04/03/23 09:00 04/08/23 08:39 Magnesium Oxide 400 Mg Tablet PO 400 mg DAILY ELISABET Administration Metoprolol Succinate 12.5 mg 04/03/23 09:00 04/08/23 08:40 Metoprolol Succinate 25 Mg Tablet PO 12.5 mg DAILY ELISABET Administration Multivitamins 1 tab 04/03/23 08:00 04/07/23 08:04 Multivitamin Tablet PO 1 tab DAILYWM ELISABET Administration Ondansetron HCl 4 mg 04/02/23 21:16 04/06/23 17:32 Ondansetron 4 Mg/2 Ml Vial IVP 4 mg Q6HR PRN Administration Nausea / Vomiting Pantoprazole Sodium 40 mg 04/05/23 08:00 04/08/23 08:40 Pantoprazole 40 Mg Tablet PO 40 mg QDBREAKFAST ELISABET Administration Polyethylene Glycol 17 gm 04/07/23 13:00 04/08/23 08:40 Polyethylene Glycol 3350 17 Gm Packet PO 17 gm DAILY ELISABET Administration Senna 8.6 - 17.2 mg 04/07/23 13:00 04/08/23 08:49 Senna 8.6 Mg Tablet PO Not Given DAILY ELISABET Sertraline HCl 100 mg 04/04/23 12:00 04/08/23 08:40 Sertraline 25 Mg Tablet PO 100 mg DAILY ELISABET Administration Sodium Chloride 10 ml 04/03/23 09:00 04/08/23 20:51 Sodium Chloride Flush 0.9% 10 Ml Syringe IVP 10 ml 0100,0900,1700 ELISABET Administration Sodium Chloride 10 ml 04/03/23 03:42 04/08/23 06:05 Sodium Chloride Flush 0.9% 10 Ml Syringe IVP 10 ml PRN PRN Administration NEEDED PER PROVIDER ORDERS Thiamine HCl 100 mg 04/05/23 11:00 04/08/23 08:39 Thiamine 100 Mg Tablet PO 100 mg DAILY ELISABET Administration Trazodone HCl 100 mg 04/04/23 11:52 04/08/23 21:00 Trazodone 50 Mg Tablet PO 100 mg HS PRN Administration Insomnia - Lab Result Fish Bone Diagrams: 04/09/23 05:06 04/09/23 05:06 - Additional Planning My Orders: My Active Orders 04/08/23 07:44 Telemetry-Discontinue [RC] .ONCE Vital Signs [RC] QSHIFT 04/08/23 09:00 Losartan [Cozaar] 50 mg PO DAILY 04/08/23 15:13 Ondansetron Odt [Zofran Odt] 4 mg TL Q4HR PRN 04/08/23 15:14 Benzocaine/Menthol [Cepacol] 1 lozenge MM Q2HR PRN 04/09/23 08:00 D5LR @ 83.333 mls/hr Dextrose 5%-Lactated Ringers [D5lr] 1,000 ml IV 83.333 mls/hr 04/09/23 09:00 methylPREDNISolone SUCCINATE [SOLU-Medrol (40MG VIAL)] 40 mg IVP BID Subjective - Subjective Patient Reports: Feeling Better Objective Vital Signs: Vital Signs - 24 hr 04/08/23 04/08/23 04/08/23 08:21 09:00 10:36 Temperature 36.7 C 37.0 C Heart Rate Heart Rate [ 77 79 Monitoring electrodes] Respiratory 19 22 Rate Blood Pressure 143/74 H 132/74 H [Right Brachial artery] O2 Saturation 96 93 If not protocol 2 2 2 : Oxygen Flow, liters/minute 04/08/23 04/08/23 04/08/23 11:03 15:45 15:51 Temperature 37.1 C Heart Rate 83 94 Heart Rate [ 87 Monitoring electrodes] Respiratory 16 16 16 Rate Blood Pressure 147/82 H [Right Brachial artery] O2 Saturation 97 If not protocol 2 2 2 : Oxygen Flow, liters/minute 04/08/23 04/08/23 04/09/23 18:23 22:13 07:36 Temperature 37.1 C Heart Rate 69 81 Heart Rate [ 96 Monitoring electrodes] Respiratory 17 18 20 Rate Blood Pressure 131/75 H [Right Brachial artery] O2 Saturation 96 If not protocol 2 2 2 : Oxygen Flow, liters/minute Oxygen O2 Source [With Activity] Nasal cannula O2 Source Nasal cannula Oxygen Flow Rate 2 I&O (Last 24 Hrs): Intake and Output Totals x24h 04/07/23 04/08/23 04/09/23 23:59 23:59 23:59 Intake Total 4694.167 3750.833 240 Output Total 2600 2225 Balance 2094.167 1525.833 240 General: Alert, Oriented x3 HEENT: EOMI, Mucous membr. moist/pink, Other (Face flushed and he is disheveled) Neck: Supple, No JVD Neuro: Alert, Non Focal, Other (Poor memory) Cardiovascular: Regular rate, No murmurs Respiratory: No respiratory distress, Breath sounds nml Abdomen: Normal bowel sounds, Soft, No tenderness Extremities: No clubbing, No edema, No tenderness/swelling - Results Results: Laboratory Results WBC 18.7 x10^3/uL (4.8-10.8) H 04/09/23 05:06 RBC 3.23 10^6/uL (4.70-6.10) L 04/09/23 05:06 Hgb 9.5 g/dL (14.0-18.0) L 04/09/23 05:06 Hct 31.2 % (42.0-52.0) L 04/09/23 05:06 MCV 96.6 fL (80.0-94.0) H 04/09/23 05:06 MCH 29.4 pg (27.0-31.0) 04/09/23 05:06 MCHC 30.4 g/dL (32.0-36.0) L 04/09/23 05:06 RDW 13.7 % (12.0-15.0) 04/09/23 05:06 Plt Count 394 10^3/uL (130-450) 04/09/23 05:06 MPV 9.1 fL (7.4-11.4) 04/09/23 05:06 Neut # (Auto) 16.5 10^3/uL (1.5-6.6) H 04/09/23 05:06 Lymph # (Auto) 0.8 10^3/uL (1.5-3.5) L 04/09/23 05:06 Reagan # (Auto) 1.2 10^3/uL (0.0-1.0) H 04/09/23 05:06 Eos # (Auto) 0.0 10^3/uL (0.0-0.7) 04/09/23 05:06 Baso # (Auto) 0.0 10^3/uL (0.0-0.1) 04/09/23 05:06 Absolute Nucleated RBC 0.00 x10^3/uL 04/09/23 05:06 Total Counted 100 04/06/23 04:17 Band Neuts % (Manual) 5 % (0-10) 04/06/23 04:17 Reactive Lymphs % (Man) 3 % 04/05/23 10:25 Abnorm Lymph % (Manual) 0 % 04/06/23 04:17 Metamyelocytes % 2 % (-0) H 04/05/23 04:41 Myelocytes % 1 % (-0) H 04/05/23 10:25 Nucleated RBC % 0.0 /100WBC 04/09/23 05:06 Neutrophils # (Manual) 19.7 10^3/uL (1.5-6.6) H 04/06/23 04:17 Lymphocytes # (Manual) 0.6 10^3/uL (1.5-3.5) L 04/06/23 04:17 Monocytes # (Manual) 0.6 10^3/uL (0.0-1.0) 04/06/23 04:17 Eosinophils # (Manual) 0.0 10^3/uL (0-0.7) 04/06/23 04:17 Basophils # (Manual) 0.0 10^3/uL (0-0.1) 04/06/23 04:17 Differential Comment MANUAL DIFFERENTIAL 04/06/23 04:17 Platelet Estimate NORMAL (130-450,000) (NORMAL) 04/06/23 04:17 Platelet Morphology 1+ GIANT PLATELETS (NORMAL) 04/02/23 17:00 RBC Morph Micro Appear NORMAL APPEARANCE (NORMAL) 04/06/23 04:17 PT 12.1 secs (9.9-12.6) 04/04/23 04:24 INR 1.1 (0.8-1.2) 04/04/23 04:24 Bld Gas Analysis Time 0646 04/05/23 06:46 Sample Site RIGHT RADIAL 04/05/23 06:46 ABG pH 7.39 (7.35-7.45) 04/05/23 06:46 ABG pCO2 67 mmHg (34-45) H* 04/05/23 06:46 ABG pO2 135 mmHg (80-100) H 04/05/23 06:46 ABG HCO3 39.4 mmol/L (22.0-26.0) H 04/05/23 06:46 ABG Total CO2 41.5 MMOL/L (21.0-29.0) H* 04/05/23 06:46 ABG O2 Saturation 99 % (94-98) H 04/05/23 06:46 ABG Base Excess 12.2 mmol/L (-2.0-3.0) H 04/05/23 06:46 Ganga Test POSITIVE 04/05/23 06:46 VBG pH 7.435 (7.31-7.41) H 04/08/23 04:30 VBG pCO2 71.7 mmHg (41-51) H 04/03/23 05:24 VBG pO2 56.5 mmHg (25-47) H 04/03/23 05:24 VBG HCO3 31.7 mmol/L (23-28) H 04/03/23 05:24 VBG Total CO2 33.9 mmol/L (24-29) H 04/03/23 05:24 VBG O2 Saturation 87.8 % (60-80) H 04/03/23 05:24 VBG Base Excess 2.8 mmol/L (-2 - +2) H 04/03/23 05:24 Ionized Calcium 1.12 mmol/L (1.15-1.33) L 04/08/23 04:30 Respiration Rate 14 b/min 04/03/23 12:20 O2 Delivery Device BiPAP 04/05/23 06:46 FiO2 40.00 04/05/23 06:46 EPAP 5 cmH2O 04/05/23 06:46 IPAP 12 cmH2O 04/05/23 06:46 Sodium 139 mmol/L (135-145) 04/09/23 05:06 Potassium 4.6 mmol/L (3.5-4.5) H 04/09/23 05:06 Chloride 97 mmol/L (101-111) L 04/09/23 05:06 Carbon Dioxide 39 mmol/L (21-32) H* 04/09/23 05:06 Anion Gap 3.0 (6-13) L 04/09/23 05:06 BUN 25 mg/dL (6-20) H 04/09/23 05:06 Creatinine 0.8 mg/dL (0.6-1.3) 04/09/23 05:06 Estimated GFR (MDRD) 96 (>89) 04/09/23 05:06 Glucose 112 mg/dL (74-104) H 04/09/23 05:06 Estimat Average Glucose 114 mg/dL (70-100) H 04/03/23 05:24 Hemoglobin A1c % 5.6 % (4.27-6.07) 04/03/23 05:24 Lactic Acid 0.5 mmol/L (0.5-2.2) 04/02/23 17:00 Calcium 9.0 mg/dL (8.5-10.3) 04/09/23 05:06 Phosphorus 4.3 mg/dL (2.5-5.0) 04/08/23 04:30 Magnesium 2.0 mg/dL (1.7-2.3) 04/08/23 04:30 Total Bilirubin 0.2 mg/dL (0.2-1.0) 04/04/23 04:24 AST 10 IU/L (10-42) 04/04/23 04:24 ALT 14 IU/L (10-60) 04/04/23 04:24 Alkaline Phosphatase 52 IU/L (42-121) 04/04/23 04:24 Ammonia 32.0 umol/L (18-72) 04/03/23 06:15 Lactate Dehydrogenase 112 IU/L (140-271) L 04/03/23 05:24 Troponin I High Sens 7.1 ng/L (2.3-19.7) 04/06/23 05:00 Total Protein 5.8 g/dL (6.4-8.9) L 04/04/23 04:24 Albumin 3.2 g/dL (3.2-5.5) 04/04/23 04:24 Globulin 2.6 g/dL (2.1-4.2) 04/04/23 04:24 Albumin/Globulin Ratio 1.2 (1.0-2.2) 04/04/23 04:24 Triglycerides 108 mg/dL (48-352) 04/03/23 05:24 Cholesterol 179 mg/dL (-200) 04/03/23 05:24 LDL Cholesterol, Calc 88 mg/dL (-129) 04/03/23 05:24 VLDL Cholesterol 22 mg/dL 04/03/23 05:24 HDL Cholesterol 69 mg/dL (60-) 04/03/23 05:24 LDL/HDL Ratio 1.3 (<3.6) 04/03/23 05:24 Cholesterol/HDL Ratio 2.6 (<5.0) 04/03/23 05:24 TSH 0.54 uIU/mL (0.34-5.60) 04/03/23 05:24 Nasal Adenovirus (PCR) NOT DETECTED 04/02/23 17:07 Nasal B. parapertussis DNA (PCR) NOT DETECTED 04/02/23 17:07 Nasal Coronavir 229E PCR NOT DETECTED 04/02/23 17:07 Nasal Coronavir HKU1 PCR NOT DETECTED 04/02/23 17:07 Nasal Coronavir NL63 PCR NOT DETECTED 04/02/23 17:07 Nasal Coronavir OC43 PCR NOT DETECTED 04/02/23 17:07 Nasal Enterovir/Rhinovir PCR NOT DETECTED 04/02/23 17:07 Nasal Influenza B PCR NOT DETECTED 04/02/23 17:07 Nasal Influenza A PCR NOT DETECTED 04/02/23 17:07 Nasal Parainfluen 1 PCR NOT DETECTED 04/02/23 17:07 Nasal Parainfluen 2 PCR NOT DETECTED 04/02/23 17:07 Nasal Parainfluen 3 PCR NOT DETECTED 04/02/23 17:07 Nasal Parainfluen 4 PCR NOT DETECTED 04/02/23 17:07 Nasal RSV (PCR) NOT DETECTED 04/02/23 17:07 Nasal Screen MRSA (PCR) NEGATIVE (NEGATIVE) 04/03/23 05:15 Nasal B.pertussis DNA PCR NOT DETECTED 04/02/23 17:07 Nasal C.pneumoniae (PCR) NOT DETECTED 04/02/23 17:07 Lenin Human Metapneumo PCR NOT DETECTED 04/02/23 17:07 Nasal M.pneumoniae (PCR) NOT DETECTED 04/02/23 17:07 Nasal SARS-CoV-2 (PCR) NOT DETECTED 04/02/23 17:07 Ethyl Alcohol < 10.0 mg/dL 04/02/23 17:00 - Procedures Procedures: Procedures CATARAC PHACOEMULS/ASPIR (07/16/14) EXCISION OF ASCENDING COLON, ENDO (08/21/18) EXCISION OF DESCENDING COLON, ENDO (08/21/18) EXCISION OF SIGMOID COLON, ENDO (08/21/18) EXCISION OF TRANSVERSE COLON, ENDO (08/21/18) INSERT LENS AT CATAR EXT (07/16/14) REPLACEMENT OF RIGHT LENS WITH SYNTH SUB, PERC APPROACH (12/24/14)
[2023-04-09] MEDS: MAGNESIUM HYDROXIDE 2,400 MG/30 ML UDC PO ONE (08:48)
[2023-04-09] MEDS: methylPREDNISolone SUCCINATE 40 MG/ML VIAL IVP SCH (08:50)
[2023-04-09] MEDS: DEXTROSE 5%-LACTATED RINGERS 1,000 ML IV SCH (09:35)
[2023-04-09] MEDS: ONDANSETRON ODT 4 MG TABLET TL PRN (17:50)
[2023-04-10 06:04] LABS: BASOPHILS % (AUTO) 0.1 %; HCT - HEMATOCRIT 31.1 % (42.0-52.0); HGB - HEMOGLOBIN 9.8 g/dL (14.0-18.0); LYMPHOCYTES % (AUTO) 4.4 %; MEAN CORPUSCULAR HEMOGLOBIN 30.3 pg (27.0-31.0); MEAN CORPUSCULAR HGB CONC 31.5 g/dL (32.0-36.0); MEAN CORPUSCULAR VOLUME 96.3 fL (80.0-94.0); MEAN PLATELET VOLUME 9.3 fL (7.4-11.4); MONOCYTES % (AUTO) 9.1 %; NEUTROPHILS % (AUTO) 85.2 %; PLT - PLATELET COUNT 416 10^3/uL (130-450); RED BLOOD COUNT 3.23 10^6/uL (4.70-6.10); RED CELL DISTRIBUTION WIDTH 13.9 % (12.0-15.0); WHITE BLOOD COUNT 21.5 x10^3/uL (4.8-10.8)
[2023-04-10 06:15] LABS: ABNORMAL LYMPHS % (MANUAL) 0 %
[2023-04-10 06:24] LABS: CALCIUM 8.9 mg/dL (8.5-10.3); CREATININE 0.7 mg/dL (0.6-1.3); POTASSIUM 4.8 mmol/L (3.5-4.5)
[2023-04-10 06:56] LABS: BAND NEUTROPHILS % (MANUAL) 1 %; DIFFERENTIAL COMMENT MANUAL DIFFERENTIAL; LYMPHOCYTES # (MANUAL) 1.7 10^3/uL (1.5-3.5); LYMPHOCYTES % (MANUAL) 8 %; MONOCYTES # (MANUAL) 1.5 10^3/uL (0.0-1.0); NEUTROPHILS # (MANUAL) 18.3 10^3/uL (1.5-6.6); PLATELET ESTIMATE, MANUAL NORMAL (130-450,000) (NORMAL); RBC MORPHOLOGY (MULTIPLE) NORMAL APPEARANCE (NORMAL)
--- NOTE | 2023-04-10 12:11 | PROVIDER PROGRESS NOTE ---
Assessment/Plan - Problem List (1) Acute respiratory failure with hypoxia Assessment/Plan: Assessment/Plan: Mr. England was admitted with acute respiratory failure secondary to COPD exacerbation and pneumonia. He currently is at his baseline. During this hospitalization we attempted to qualify him for bilevel positive airway pressure therapy, unfortunately, he did not qualify. He is oxygen dependent and requires 2 to 3 L/min by nasal cannula (2) COPD exacerbation Plan: Continue Solu-Medrol, Pulmicort and DuoNeb. Resolved. Patient currently near baseline. (3) Community acquired Pneumonia Plan: Resolved. Patient has completed course of ceftriaxone and azithromycin. (4) Alcohol withdrawal Resolved. Cont mvi, thiamine ivf (5) Alcohol abuse He drinks whiskey.He was in significant alcohol withdrawal at admission. Alcohol withdrawal has resolved. (6) Prerenal azotemia Assessment/Plan: Patient appears to be at his baseline. (7) HTN Assessment/Plan: Continue losartan (8) Nausea Assessment/Plan: Resolved. (9) Tobacco use As per Hx. Patient counseled to quit smoking. (10) Hyponatremia RESOLVED (11) Thrombocytosis RESOLVED (12) AMS RESOLVED Patient is medically cleard for disharge. - Current Meds Current Meds: Current Medications Generic Name Dose Route Start Last Admin Trade Name Freq PRN Reason Stop Dose Admin Acetaminophen 325 mg 04/03/23 03:42 04/06/23 03:03 Acetaminophen 325 Mg Tablet PO 325 mg Q4HR PRN Administration Pain 1 to 4, or Fever Albuterol/Ipratropium 3 ml 04/03/23 07:00 04/10/23 11:32 Ipratropium/Albuterol 3 Ml Neb INH 3 ml RTQID [facility] Administration Aspirin 81 mg 04/03/23 09:00 04/10/23 08:41 Aspirin Ec 81 Mg Tablet PO 81 mg DAILY [facility] Administration Budesonide 0.5 mg 04/03/23 19:00 04/10/23 07:22 Budesonide 0.5 Mg/2 Ml Neb INH 0.5 mg RTBID [facility] Administration Chlordiazepoxide HCl 5 mg 04/07/23 21:00 04/10/23 08:39 Chlordiazepoxide 5 Mg Capsule PO 04/10/23 15:00 5 mg BID [facility] Administration Cholecalciferol 25 mcg 04/03/23 09:00 04/10/23 08:41 Cholecalciferol 25 Mcg Tablet PO 25 mcg DAILY [facility] Administration Docusate Sodium 250 - 500 mg 04/07/23 13:00 04/10/23 08:40 Docusate Sodium 250 Mg Capsule PO 500 mg DAILY [facility] Administration Enoxaparin Sodium 40 mg 04/04/23 09:00 04/10/23 08:39 Enoxaparin 40 Mg/0.4 Ml Syringe SUBQ 40 mg DAILY [facility] Administration Formoterol Fumarate 20 mcg 04/03/23 19:00 04/10/23 07:22 Formoterol Fumarate Neb 20 Mcg/2 Ml INH 20 mcg RTBID [facility] Administration Guaifenesin 600 mg 04/03/23 09:00 04/10/23 08:41 Guaifenesin 600 Mg Tablet PO 600 mg BID [facility] Administration Guaifenesin/Codeine Phosphate 5 ml 04/07/23 19:00 04/09/23 21:00 Guaifenesin/Codeine 5 Ml Udc PO 5 ml Q6HR PRN Administration Cough Losartan Potassium 50 mg 04/08/23 09:00 04/10/23 08:41 Losartan 50 Mg Tablet PO 50 mg DAILY [facility] Administration Magnesium Oxide 400 mg 04/03/23 09:00 04/10/23 08:42 Magnesium Oxide 400 Mg Tablet PO 400 mg DAILY [facility] Administration Methylprednisolone 40 mg 04/09/23 09:00 04/10/23 08:31 Methylprednisolone Succinate 40 Mg/Ml Vial IVP 40 mg BID [facility] Administration Metoprolol Succinate 12.5 mg 04/03/23 09:00 04/10/23 08:39 Metoprolol Succinate 25 Mg Tablet PO 12.5 mg DAILY [facility] Administration Multivitamins 1 tab 04/03/23 08:00 04/10/23 08:41 Multivitamin Tablet PO 1 tab DAILYWM [facility] Administration Ondansetron HCl 4 mg 04/02/23 21:16 04/06/23 17:32 Ondansetron 4 Mg/2 Ml Vial IVP 4 mg Q6HR PRN Administration Nausea / Vomiting Ondansetron HCl 4 mg 04/08/23 15:13 04/09/23 17:50 Ondansetron Odt 4 Mg Tablet TL 4 mg Q4HR PRN Administration Nausea / Vomiting Pantoprazole Sodium 40 mg 04/05/23 08:00 04/10/23 08:41 Pantoprazole 40 Mg Tablet PO 40 mg QDBREAKFAST [facility] Administration Polyethylene Glycol 17 gm 04/07/23 13:00 04/10/23 08:42 Polyethylene Glycol 3350 17 Gm Packet PO Not Given DAILY [facility] Senna 8.6 - 17.2 mg 04/07/23 13:00 04/10/23 08:42 Senna 8.6 Mg Tablet PO Not Given DAILY [facility] Sertraline HCl 100 mg 04/04/23 12:00 04/10/23 08:40 Sertraline 25 Mg Tablet PO 100 mg DAILY [facility] Administration Sodium Chloride 10 ml 04/03/23 09:00 04/10/23 08:31 Sodium Chloride Flush 0.9% 10 Ml Syringe IVP 10 ml 0100,0900,1700 [facility] Administration Sodium Chloride 10 ml 04/03/23 03:42 04/08/23 06:05 Sodium Chloride Flush 0.9% 10 Ml Syringe IVP 10 ml PRN PRN Administration NEEDED PER PROVIDER ORDERS Thiamine HCl 100 mg 04/05/23 11:00 04/10/23 08:42 Thiamine 100 Mg Tablet PO 100 mg DAILY [facility] Administration Trazodone HCl 100 mg 04/04/23 11:52 04/08/23 21:00 Trazodone 50 Mg Tablet PO 100 mg HS PRN Administration Insomnia - Lab Result [place] Diagrams: 04/10/23 05:32 04/10/23 05:32 Subjective - Subjective Patient Reports: Other (Alert. Breathing has improve and is closer to baseline.) Objective Vital Signs: Vital Signs - 24 hr 04/09/23 04/09/23 04/09/23 15:57 20:35 23:43 Temperature 36.8 C 36.8 C Heart Rate 100 Heart Rate [ 100 98 Brachial] Respiratory 20 20 20 Rate Blood Pressure 147/76 H 137/75 H [Right Brachial artery] O2 Saturation 94 92 If not protocol 2 2 2 : Oxygen Flow, liters/minute 04/10/23 04/10/23 04/10/23 07:26 09:59 11:33 Temperature 36.7 C Heart Rate 94 90 Heart Rate [ 105 H Brachial] Respiratory 20 18 20 Rate Blood Pressure 121/71 [Right Brachial artery] O2 Saturation 93 If not protocol 2 2 2 : Oxygen Flow, liters/minute Oxygen O2 Source [With Activity] Nasal cannula O2 Source Nasal cannula Oxygen Flow Rate 2 I&O (Last 24 Hrs): Intake and Output Totals x24h 04/08/23 04/09/23 04/10/23 23:59 23:59 23:59 Intake Total 3750.833 3070 240 Output Total 2225 700 300 Balance 6881.537 2177 -60 General: Alert, Oriented x3, No acute distress HEENT: Atraumatic, PERRLA Neck: Supple, No JVD, No thyromegaly Lymphatic: no adenopathy Neuro: Alert, Non Focal Cardiovascular: Other (postive S1, S2. No extra heart sounds.) Respiratory: Other (fair air exchange in all lung saucedo. No wheezing. No crackles.) Abdomen: Normal bowel sounds, Soft, No tenderness, No hepatospenomegaly, Other Extremities: No clubbing, No cyanosis, No edema Skin: No rashes - Results Results: Laboratory Results WBC 21.5 x10^3/uL (4.8-10.8) H 04/10/23 05:32 RBC 3.23 10^6/uL (4.70-6.10) L 04/10/23 05:32 Hgb 9.8 g/dL (14.0-18.0) L 04/10/23 05:32 Hct 31.1 % (42.0-52.0) L 04/10/23 05:32 MCV 96.3 fL (80.0-94.0) H 04/10/23 05:32 MCH 30.3 pg (27.0-31.0) 04/10/23 05:32 MCHC 31.5 g/dL (32.0-36.0) L 04/10/23 05:32 RDW 13.9 % (12.0-15.0) 04/10/23 05:32 Plt Count 416 10^3/uL (130-450) 04/10/23 05:32 MPV 9.3 fL (7.4-11.4) 04/10/23 05:32 Neut # (Auto) Not Reportable 04/10/23 05:32 Lymph # (Auto) Not Reportable 04/10/23 05:32 [place] # (Auto) Not Reportable 04/10/23 05:32 Eos # (Auto) Not Reportable 04/10/23 05:32 Baso # (Auto) Not Reportable 04/10/23 05:32 Absolute Nucleated RBC Not Reportable 04/10/23 05:32 Total Counted 100 04/10/23 05:32 Band Neuts % (Manual) 1 % (0-10) 04/10/23 05:32 Reactive Lymphs % (Man) 3 % 04/05/23 10:25 Abnorm Lymph % (Manual) 0 % 04/10/23 05:32 Metamyelocytes % 2 % (-0) H 04/05/23 04:41 Myelocytes % 1 % (-0) H 04/05/23 10:25 Nucleated RBC % Not Reportable 04/10/23 05:32 Neutrophils # (Manual) 18.3 10^3/uL (1.5-6.6) H 04/10/23 05:32 Lymphocytes # (Manual) 1.7 10^3/uL (1.5-3.5) 04/10/23 05:32 Monocytes # (Manual) 1.5 10^3/uL (0.0-1.0) H 04/10/23 05:32 Eosinophils # (Manual) 0.0 10^3/uL (0-0.7) 04/10/23 05:32 Basophils # (Manual) 0.0 10^3/uL (0-0.1) 04/10/23 05:32 Differential Comment MANUAL DIFFERENTIAL 04/10/23 05:32 Platelet Estimate NORMAL (130-450,000) (NORMAL) 04/10/23 05:32 Platelet Morphology 1+ GIANT PLATELETS (NORMAL) 04/02/23 17:00 RBC Morph Micro Appear NORMAL APPEARANCE (NORMAL) 04/10/23 05:32 PT 12.1 secs (9.9-12.6) 04/04/23 04:24 INR 1.1 (0.8-1.2) 04/04/23 04:24 Bld Gas Analysis Time 0646 04/05/23 06:46 Sample Site RIGHT RADIAL 04/05/23 06:46 ABG pH 7.39 (7.35-7.45) 04/05/23 06:46 ABG pCO2 67 mmHg (34-45) H* 04/05/23 06:46 ABG pO2 135 mmHg (80-100) H 04/05/23 06:46 ABG HCO3 39.4 mmol/L (22.0-26.0) H 04/05/23 06:46 ABG Total CO2 41.5 MMOL/L (21.0-29.0) H* 04/05/23 06:46 ABG O2 Saturation 99 % (94-98) H 04/05/23 06:46 ABG Base Excess 12.2 mmol/L (-2.0-3.0) H 04/05/23 06:46 [place]anga Test POSITIVE 04/05/23 06:46 VBG pH 7.435 (7.31-7.41) H 04/08/23 04:30 VBG pCO2 71.7 mmHg (41-51) H 04/03/23 05:24 VBG pO2 56.5 mmHg (25-47) H 04/03/23 05:24 VBG HCO3 31.7 mmol/L (23-28) H 04/03/23 05:24 VBG Total CO2 33.9 mmol/L (24-29) H 04/03/23 05:24 VBG O2 Saturation 87.8 % (60-80) H 04/03/23 05:24 VBG Base Excess 2.8 mmol/L (-2 - +2) H 04/03/23 05:24 Ionized Calcium 1.12 mmol/L (1.15-1.33) L 04/08/23 04:30 Respiration Rate 14 b/min 04/03/23 12:20 O2 Delivery Device BiPAP 04/05/23 06:46 FiO2 40.00 04/05/23 06:46 EPAP 5 cmH2O 04/05/23 06:46 IPAP 12 cmH2O 04/05/23 06:46 Sodium 139 mmol/L (135-145) 04/10/23 05:32 Potassium 4.8 mmol/L (3.5-4.5) H 04/10/23 05:32 Chloride 98 mmol/L (101-111) L 04/10/23 05:32 Carbon Dioxide 39 mmol/L (21-32) H* 04/10/23 05:32 Anion Gap 2.0 (6-13) L 04/10/23 05:32 BUN 30 mg/dL (6-20) H 04/10/23 05:32 Creatinine 0.7 mg/dL (0.6-1.3) 04/10/23 05:32 Estimated GFR (MDRD) 112 (>89) 04/10/23 05:32 Glucose 106 mg/dL (74-104) H 04/10/23 05:32 Estimat Average Glucose 114 mg/dL (70-100) H 04/03/23 05:24 Hemoglobin A1c % 5.6 % (4.27-6.07) 04/03/23 05:24 Lactic Acid 0.5 mmol/L (0.5-2.2) 04/02/23 17:00 Calcium 8.9 mg/dL (8.5-10.3) 04/10/23 05:32 Phosphorus 4.3 mg/dL (2.5-5.0) 04/08/23 04:30 Magnesium 2.0 mg/dL (1.7-2.3) 04/08/23 04:30 Total Bilirubin 0.2 mg/dL (0.2-1.0) 04/04/23 04:24 AST 10 IU/L (10-42) 04/04/23 04:24 ALT 14 IU/L (10-60) 04/04/23 04:24 Alkaline Phosphatase 52 IU/L (42-121) 04/04/23 04:24 Ammonia 32.0 umol/L (18-72) 04/03/23 06:15 Lactate Dehydrogenase 112 IU/L (140-271) L 04/03/23 05:24 Troponin I High Sens 7.1 ng/L (2.3-19.7) 04/06/23 05:00 Total Protein 5.8 g/dL (6.4-8.9) L 04/04/23 04:24 Albumin 3.2 g/dL (3.2-5.5) 04/04/23 04:24 Globulin 2.6 g/dL (2.1-4.2) 04/04/23 04:24 Albumin/Globulin Ratio 1.2 (1.0-2.2) 04/04/23 04:24 Triglycerides 108 mg/dL (48-352) 04/03/23 05:24 Cholesterol 179 mg/dL (-200) 04/03/23 05:24 LDL Cholesterol, Calc 88 mg/dL (-129) 04/03/23 05:24 VLDL Cholesterol 22 mg/dL 04/03/23 05:24 HDL Cholesterol 69 mg/dL (60-) 04/03/23 05:24 LDL/HDL Ratio 1.3 (<3.6) 04/03/23 05:24 Cholesterol/HDL Ratio 2.6 (<5.0) 04/03/23 05:24 TSH 0.54 uIU/mL (0.34-5.60) 04/03/23 05:24 Nasal Adenovirus (PCR) NOT DETECTED 04/02/23 17:07 Nasal B. parapertussis DNA (PCR) NOT DETECTED 04/02/23 17:07 Nasal Coronavir 229E PCR NOT DETECTED 04/02/23 17:07 Nasal Coronavir HKU1 PCR NOT DETECTED 04/02/23 17:07 Nasal Coronavir NL63 PCR NOT DETECTED 04/02/23 17:07 Nasal Coronavir OC43 PCR NOT DETECTED 04/02/23 17:07 Nasal Enterovir/Rhinovir PCR NOT DETECTED 04/02/23 17:07 Nasal Influenza B PCR NOT DETECTED 04/02/23 17:07 Nasal Influenza A PCR NOT DETECTED 04/02/23 17:07 Nasal Parainfluen 1 PCR NOT DETECTED 04/02/23 17:07 Nasal Parainfluen 2 PCR NOT DETECTED 04/02/23 17:07 Nasal Parainfluen 3 PCR NOT DETECTED 04/02/23 17:07 Nasal Parainfluen 4 PCR NOT DETECTED 04/02/23 17:07 Nasal RSV (PCR) NOT DETECTED 04/02/23 17:07 Nasal Screen MRSA (PCR) NEGATIVE (NEGATIVE) 04/03/23 05:15 Nasal B.pertussis DNA PCR NOT DETECTED 04/02/23 17:07 Nasal C.pneumoniae (PCR) NOT DETECTED 04/02/23 17:07 [place] Human Metapneumo PCR NOT DETECTED 04/02/23 17:07 Nasal M.pneumoniae (PCR) NOT DETECTED 04/02/23 17:07 Nasal SARS-CoV-2 (PCR) NOT DETECTED 04/02/23 17:07 Ethyl Alcohol < 10.0 mg/dL 04/02/23 17:00 - Procedures Procedures: Procedures CATARAC PHACOEMULS/ASPIR (07/16/14) EXCISION OF ASCENDING COLON, ENDO (08/21/18) EXCISION OF DESCENDING COLON, ENDO (08/21/18) EXCISION OF SIGMOID COLON, ENDO (08/21/18) EXCISION OF TRANSVERSE COLON, ENDO (06/12/19) INSERT LENS AT CATAR EXT (07/16/14) REPLACEMENT OF RIGHT LENS WITH SYNTH SUB, PERC APPROACH (12/24/14) ABX Reporting Has patient been on IV antibiotics over the past 48 hours?: No Current Medications - Current Medications Current Medications: Active Medications Acetaminophen (Acetaminophen 325 Mg Tablet) 325 mg PO Q4HR PRN PRN Reason: Pain 1 to 4, or Fever Last Admin: 04/06/23 03:03 Dose: 325 mg Albuterol (Albuterol Neb 2.5 Mg/3 Ml) 2.5 mg INH RTQ4H PRN PRN Reason: Wheezing Albuterol/Ipratropium (Ipratropium/Albuterol 3 Ml Neb) 3 ml INH Q4HR PRN PRN Reason: Wheezing Albuterol/Ipratropium (Ipratropium/Albuterol 3 Ml Neb) 3 ml INH RTQID [facility] Last Admin: 04/10/23 11:32 Dose: 3 ml Aspirin (Aspirin Ec 81 Mg Tablet) 81 mg PO DAILY [facility] Last Admin: 04/10/23 08:41 Dose: 81 mg Budesonide (Budesonide 0.5 Mg/2 Ml Neb) 0.5 mg INH RTBID [facility] Last Admin: 04/10/23 07:22 Dose: 0.5 mg Chlordiazepoxide HCl (Chlordiazepoxide 5 Mg Capsule) 5 mg PO BID [facility] Stop: 04/10/23 15:00 Last Admin: 04/10/23 08:39 Dose: 5 mg Cholecalciferol (Cholecalciferol 25 Mcg Tablet) 25 mcg PO DAILY [facility] Last Admin: 04/10/23 08:41 Dose: 25 mcg Docusate Sodium (Docusate Sodium 250 Mg Capsule) 250 - 500 mg PO DAILY [facility] Last Admin: 04/10/23 08:40 Dose: 500 mg Enoxaparin Sodium (Enoxaparin 40 Mg/0.4 Ml Syringe) 40 mg SUBQ DAILY [facility] Last Admin: 04/10/23 08:39 Dose: 40 mg Formoterol Fumarate (Formoterol Fumarate Neb 20 Mcg/2 Ml) 20 mcg INH RTBID [facility] Last Admin: 04/10/23 07:22 Dose: 20 mcg Guaifenesin (Guaifenesin 600 Mg Tablet) 600 mg PO BID [facility] Last Admin: 04/10/23 08:41 Dose: 600 mg Guaifenesin/Codeine Phosphate (Guaifenesin/Codeine 5 Ml Udc) 5 ml PO Q6HR PRN PRN Reason: Cough Last Admin: 04/09/23 21:00 Dose: 5 ml Losartan Potassium (Losartan 50 Mg Tablet) 50 mg PO DAILY [facility] Last Admin: 04/10/23 08:41 Dose: 50 mg Magnesium Oxide (Magnesium Oxide 400 Mg Tablet) 400 mg PO DAILY [facility] Last Admin: 04/10/23 08:42 Dose: 400 mg Methylprednisolone (Methylprednisolone Succinate 40 Mg/Ml Vial) 40 mg IVP BID [facility] Last Admin: 04/10/23 08:31 Dose: 40 mg Metoprolol Succinate (Metoprolol Succinate 25 Mg Tablet) 12.5 mg PO DAILY [facility] Last Admin: 04/10/23 08:39 Dose: 12.5 mg Multivitamins (Multivitamin Tablet) 1 tab PO DAILYWM [facility] Last Admin: 04/10/23 08:41 Dose: 1 tab Ondansetron HCl (Ondansetron 4 Mg/2 Ml Vial) 4 mg IVP Q6HR PRN PRN Reason: Nausea / Vomiting Last Admin: 04/06/23 17:32 Dose: 4 mg Ondansetron HCl (Ondansetron Odt 4 Mg Tablet) 4 mg TL Q4HR PRN PRN Reason: Nausea / Vomiting Last Admin: 04/09/23 17:50 Dose: 4 mg Pantoprazole Sodium (Pantoprazole 40 Mg Tablet) 40 mg PO QDBREAKFAST [facility] Last Admin: 04/10/23 08:41 Dose: 40 mg Polyethylene Glycol (Polyethylene Glycol 3350 17 Gm Packet) 17 gm PO DAILY [facility] Last Admin: 04/10/23 08:42 Dose: Not Given Senna (Senna 8.6 Mg Tablet) 8.6 - 17.2 mg PO DAILY [facility] Last Admin: 04/10/23 08:42 Dose: Not Given Sertraline HCl (Sertraline 25 Mg Tablet) 100 mg PO DAILY [facility] Last Admin: 04/10/23 08:40 Dose: 100 mg Sodium Chloride (Sodium Chloride Flush 0.9% 10 Ml Syringe) 10 ml IVP 0100,0900,1700 [facility] Last Admin: 04/10/23 08:31 Dose: 10 ml Sodium Chloride (Sodium Chloride Flush 0.9% 10 Ml Syringe) 10 ml IVP PRN PRN PRN Reason: NEEDED PER PROVIDER ORDERS Last Admin: 04/08/23 06:05 Dose: 10 ml Thiamine HCl (Thiamine 100 Mg Tablet) 100 mg PO DAILY [facility] Last Admin: 04/10/23 08:42 Dose: 100 mg Throat Lozenges (Benzocaine/Menthol Lozenge) 1 lozenge MM Q2HR PRN PRN Reason: Mouth Sore Pain Trazodone HCl (Trazodone 50 Mg Tablet) 100 mg PO HS PRN PRN Reason: Insomnia Last Admin: 04/08/23 21:00 Dose: 100 mg Sertraline [Zoloft] 100 mg PO DAILY 01/14/21 traZODone [Desyrel] 50 - 100 mg PO HS PRN 01/14/21 Furosemide [Lasix] 20 - 40 mg PO DAILY PRN 01/15/21 estradioL [Estrace] 2 mg PO DAILY 01/15/21 predniSONE [Deltasone] 10 mg PO DAILY 01/15/21 Budesonide/Formoterol Fumarate [Symbicort 160-4.5 Mcg Inhaler] 2 puffs INH BID 08/18/21 Tiotropium [place] [Spiriva Handihaler] 1 cap INH DAILY 08/18/21 lisinopriL [Zestril] 5 mg PO DAILY 08/18/21 Potassium Chloride [Klor-Con 10] 20 meq PO DAILY 08/19/21 LORazepam [Ativan] 0.5 mg PO ONCE PRN 04/03/23 Omeprazole 40 mg PO QDBREAKFAST 04/03/23
--- NOTE | 2023-04-11 07:19 | DISCHARGE SUMMARY ---
Discharge Summary Condition at Discharge: Critical - ALLERGIES Allergies/Adverse Reactions: Allergies Allergy/AdvReac Type Severity Reaction Status Date / Time No Known Drug Allergies Allergy Verified 04/02/23 16:52 - MEDICATIONS Home Medications: Ambulatory Orders Medication Instructions Recorded Confirmed Sertraline [Zoloft] 100 mg PO DAILY 01/14/21 04/03/23 traZODone [Desyrel] 50 - 100 mg PO HS PRN 01/14/21 04/03/23 Furosemide [Lasix] 20 - 40 mg PO DAILY PRN 01/15/21 04/03/23 estradioL [Estrace] 2 mg PO DAILY 01/15/21 04/03/23 predniSONE [Deltasone] 10 mg PO DAILY 01/15/21 04/03/23 Albuterol 2.5 mg INH RTQ4H PRN #120 neb 01/19/21 04/03/23 Budesonide/Formoterol Fumarate 2 puffs INH BID 08/18/21 04/03/23 [Symbicort 160-4.5 Mcg Inhaler] Tiotropium [place] [Spiriva 1 cap INH DAILY 08/18/21 04/03/23 Handihaler] lisinopriL [Zestril] 5 mg PO DAILY 08/18/21 04/03/23 Potassium Chloride [Klor-Con 10] 20 meq PO DAILY 08/19/21 04/03/23 Aspirin EC [Ecotrin] 81 mg PO DAILY #0 tablet 08/27/21 04/03/23 Metoprolol Succinate [Toprol Xl] 12.5 mg PO DAILY #15 tablet 08/27/21 04/03/23 LORazepam [Ativan] 0.5 mg PO ONCE PRN 04/03/23 04/03/23 Omeprazole 40 mg PO QDBREAKFAST 04/03/23 04/03/23 - LABS Result Diagrams: 04/10/23 05:32 04/10/23 05:32
--- NOTE | 2023-04-11 07:19 | Discharge Plan ---
Discharge Plan for SNF / [facility] - Discharge Plan And Transition Orders Problem Reviewed?: Yes Disposition: 03 SNF DC/Xfer Condition: Fair Allergies and Adverse Reactions: Allergies Allergy/AdvReac Type Severity Reaction Status Date / Time No Known Drug Allergies Allergy Verified 04/02/23 16:52 Plan of Treatment: Transfer to alf facility for treatment. Care Goals: To maintain current functionality and possibly improve enough to return to home. Assessment: (1) Acute respiratory failure with hypoxia Assessment/Plan: Assessment/Plan: Mr. England was admitted with acute respiratory failure secondary to COPD exacerbation and pneumonia. He currently is at his baseline. During this hospitalization we attempted to qualify him for bilevel positive airway pressure therapy, unfortunately, he did not qualify. He is oxygen dependent and requires 2 to 3 L/min by nasal cannula (2) COPD exacerbation Plan: Continue Solu-Medrol, Pulmicort and DuoNeb. Resolved. Patient currently near baseline. (3) Community acquired Pneumonia Plan: Resolved. Patient has completed course of ceftriaxone and azithromycin. (4) Alcohol withdrawal Resolved. Cont mvi, thiamine ivf (5) Alcohol abuse He drinks whiskey.He was in significant alcohol withdrawal at admission. Alcohol withdrawal has resolved. (6) Prerenal azotemia Assessment/Plan: Patient appears to be at his baseline. (7) HTN Assessment/Plan: Continue losartan (8) Nausea Assessment/Plan: Resolved. (9) Tobacco use As per Hx. Patient counseled to quit smoking. (10) Hyponatremia RESOLVED (11) Thrombocytosis RESOLVED (12) AMS RESOLVED Patient is medically cleard for disharge. - SNF / RESIDENTIAL Transition Orders Discharge Diagnosis: 1. Acute respiratory failure 2. COPD exacerbation 3. Community-acquired pneumonia 4. Alcohol withdrawal 5. Alcohol abuse 6. Prerenal azotemia 7. Hypertension 8. Nausea 9. Tobacco use 10. Hyponatremia Medicare Certification Statement: I certify that [facility] alf care is medically necessary on a continuing basis for any of the conditions for which she/he is receiving care during hospitalization. Notify PCP of admission and forward orders to primary provider for signature. Weight on admission and: Weekly Other Notification Orders: Call PCP immediately if patient develops dyspnea, chest pain/tightness or edema. House Bowel Program: Yes Additional Bowel Program Orders: If no BM after 2 days, nurse may give M.O.M. 30ml PO PRN and/or ducolax Supp 1 [place] and/or SANTO 250mg P.O., and/or senna 1-2 tabs PO. On day 3 nurse may give repeat above order until residents constipation is resolved. Annual Influenza Vaccine (between Nov 10 and June 09): Yes Two-step PPD per [facility] [phone] or approved exception documents: Yes Oxygen Orders: 2-3 LPM by [place] Medication Orders: PLEASE REFER TO THE DISCHARGE MEDICATION LIST. - Medications New Prescriptions: LORazepam [Ativan] 0.5 mg PO ONCE PRN #10 tab PRN Reason: Anxiety
--- NOTE | 2023-04-11 17:55 | PROVIDER PROGRESS NOTE ---
Assessment/Plan - Problem List (1) Acute respiratory failure with hypoxia Assessment/Plan: Mr. England was admitted with acute respiratory failure secondary to COPD exacerbation and pneumonia. He currently is at his baseline. During this hospitalization we attempted to qualify him for bilevel positive ai rway pressure therapy, unfortunately, he did not qualify. He is oxygen dependent and requires 2 to 3 L/min by nasal cannula (2) COPD exacerbation Plan: Continue Solu-Medrol, Pulmicort and DuoNeb. Resolved. Patient currently near baseline. (3) Community acquired Pneumonia Plan: Resolved. Patient has completed course of ceftriaxone and azithromycin. (4) Alcohol withdrawal Resolved. Cont mvi, thiamine ivf (5) Alcohol abuse He drinks whiskey.He was in significant alcohol withdrawal at admission. Alcohol withdrawal has resolved. (6) Prerenal azotemia Assessment/Plan: Patient appears to be at his baseline. (7) HTN Assessment/Plan: Continue losartan (8) Nausea Assessment/Plan: Resolved. (9) Tobacco use As per Hx. Patient counseled to quit smoking. (10) Hyponatremia RESOLVED (11) Thrombocytosis RESOLVED (12) AMS RESOLVED Patient is medically cleared for discharge. - Current Meds Current Meds: Current Medications Generic Name Dose Route Start Last Admin Trade Name Freq PRN Reason Stop Dose Admin Acetaminophen 325 mg 04/03/23 03:42 04/06/23 03:03 Acetaminophen 325 Mg Tablet PO 325 mg Q4HR PRN Administration Pain 1 to 4, or Fever Albuterol/Ipratropium 3 ml 04/03/23 07:00 04/11/23 15:03 Ipratropium/Albuterol 3 Ml Neb INH 3 ml RTQID ELISABET Administration Aspirin 81 mg 04/03/23 09:00 04/11/23 08:47 Aspirin Ec 81 Mg Tablet PO 81 mg DAILY ELISABET Administration Budesonide 0.5 mg 04/03/23 19:00 04/11/23 07:16 Budesonide 0.5 Mg/2 Ml Neb INH 0.5 mg RTBID ELISABET Administration Cholecalciferol 25 mcg 04/03/23 09:00 04/11/23 08:44 Cholecalciferol 25 Mcg Tablet PO 25 mcg DAILY ELISABET Administration Docusate Sodium 250 - 500 mg 04/07/23 13:00 04/11/23 08:44 Docusate Sodium 250 Mg Capsule PO 500 mg DAILY ELISABET Administration Enoxaparin Sodium 40 mg 04/04/23 09:00 04/11/23 08:41 Enoxaparin 40 Mg/0.4 Ml Syringe SUBQ 40 mg DAILY ELISABET Administration Formoterol Fumarate 20 mcg 04/03/23 19:00 04/11/23 07:16 Formoterol Fumarate Neb 20 Mcg/2 Ml INH 20 mcg RTBID ELISABET Administration Guaifenesin 600 mg 04/03/23 09:00 04/11/23 08:44 Guaifenesin 600 Mg Tablet PO 600 mg BID ELISABET Administration Guaifenesin/Codeine Phosphate 5 ml 04/07/23 19:00 04/10/23 12:15 Guaifenesin/Codeine 5 Ml Udc PO 5 ml Q6HR PRN Administration Cough Losartan Potassium 50 mg 04/08/23 09:00 04/11/23 08:44 Losartan 50 Mg Tablet PO 50 mg DAILY ELISABET Administration Magnesium Oxide 400 mg 04/03/23 09:00 04/11/23 08:44 Magnesium Oxide 400 Mg Tablet PO 400 mg DAILY [facility] Administration Methylprednisolone 40 mg 04/09/23 09:00 04/11/23 08:43 Methylprednisolone Succinate 40 Mg/Ml Vial IVP 40 mg BID [facility] Administration Metoprolol Succinate 12.5 mg 04/03/23 09:00 04/11/23 08:42 Metoprolol Succinate 25 Mg Tablet PO 12.5 mg DAILY [facility] Administration Multivitamins 1 tab 04/03/23 08:00 04/11/23 08:44 Multivitamin Tablet PO 1 tab DAILYWM [facility] Administration Ondansetron HCl 4 mg 04/02/23 21:16 04/06/23 17:32 Ondansetron 4 Mg/2 Ml Vial IVP 4 mg Q6HR PRN Administration Nausea / Vomiting Ondansetron HCl 4 mg 04/08/23 15:13 04/09/23 17:50 Ondansetron Odt 4 Mg Tablet TL 4 mg Q4HR PRN Administration Nausea / Vomiting Pantoprazole Sodium 40 mg 04/05/23 08:00 04/11/23 08:47 Pantoprazole 40 Mg Tablet PO 40 mg QDBREAKFAST ELISABET Administration Polyethylene Glycol 17 gm 04/07/23 13:00 04/11/23 08:45 Polyethylene Glycol 3350 17 Gm Packet PO Not Given DAILY [facility] Senna 8.6 - 17.2 mg 04/07/23 13:00 04/11/23 08:45 Senna 8.6 Mg Tablet PO Not Given DAILY ELISABET Sertraline HCl 100 mg 04/04/23 12:00 04/11/23 08:42 Sertraline 25 Mg Tablet PO 100 mg DAILY ELISABET Administration Sodium Chloride 10 ml 04/03/23 09:00 04/11/23 15:56 Sodium Chloride Flush 0.9% 10 Ml Syringe IVP 10 ml 0100,0900,1700 ELISABET Administration Sodium Chloride 10 ml 04/03/23 03:42 04/08/23 06:05 Sodium Chloride Flush 0.9% 10 Ml Syringe IVP 10 ml PRN PRN Administration NEEDED PER PROVIDER ORDERS Thiamine HCl 100 mg 04/05/23 11:00 04/11/23 08:44 Thiamine 100 Mg Tablet PO 100 mg DAILY ELISABET Administration Trazodone HCl 100 mg 04/04/23 11:52 04/10/23 21:45 Trazodone 50 Mg Tablet PO 100 mg HS PRN Administration Insomnia - Lab Result Fish Bone Diagrams: 04/13/23 10:37 04/13/23 10:37 Subjective - Subjective Patient Reports: Other (Alert. No change in dyspnea. He is overall improved.) Objective Vital Signs: Vital Signs - 24 hr 04/10/23 04/10/23 04/11/23 20:50 23:38 07:16 Temperature 36.6 C Heart Rate 88 93 Heart Rate [ 92 Brachial] Respiratory 20 24 24 Rate Blood Pressure 98/53 L [Right Brachial artery] O2 Saturation 95 If not protocol 2 2 2 : Oxygen Flow, liters/minute 04/11/23 04/11/23 04/11/23 10:00 10:39 15:03 Temperature 37 C Heart Rate 93 79 Heart Rate [ 93 Brachial] Respiratory 18 20 17 Rate Blood Pressure 93/53 L [Right Brachial artery] O2 Saturation 95 If not protocol 2 2 : Oxygen Flow, liters/minute 04/11/23 15:47 Temperature 37.0 C Heart Rate Heart Rate [ 67 Brachial] Respiratory 18 Rate Blood Pressure 113/67 [Right Brachial artery] O2 Saturation 93 If not protocol : Oxygen Flow, liters/minute Oxygen O2 Source [With Activity] Nasal cannula O2 Source Nasal cannula Oxygen Flow Rate 2 I&O (Last 24 Hrs): Intake and Output Totals x24h 04/09/23 04/10/23 04/11/23 23:59 23:59 23:59 Intake Total 3070 1680 1710 Output Total 700 300 Balance 2370 1380 1710 General: Alert, Cooperative, No acute distress, Mild distress HEENT: Atraumatic, PERRLA Neck: No thyromegaly Neuro: Alert, Non Focal Cardiovascular: Other (Positive S1-S2 no extra heart sounds.) Respiratory: Other (Good air exchange in all lung saucedo no wheezing no crackles.) Abdomen: Normal bowel sounds, Soft, No tenderness, No hepatospenomegaly Extremities: No cyanosis, No edema Skin: No rashes - Results Results: Laboratory Results WBC 21.5 x10^3/uL (4.8-10.8) H 04/10/23 05:32 RBC 3.23 10^6/uL (4.70-6.10) L 04/10/23 05:32 Hgb 9.8 g/dL (14.0-18.0) L 04/10/23 05:32 Hct 31.1 % (42.0-52.0) L 04/10/23 05:32 MCV 96.3 fL (80.0-94.0) H 04/10/23 05:32 MCH 30.3 pg (27.0-31.0) 04/10/23 05:32 MCHC 31.5 g/dL (32.0-36.0) L 04/10/23 05:32 RDW 13.9 % (12.0-15.0) 04/10/23 05:32 Plt Count 416 10^3/uL (130-450) 04/10/23 05:32 MPV 9.3 fL (7.4-11.4) 04/10/23 05:32 Neut # (Auto) Not Reportable 04/10/23 05:32 Lymph # (Auto) Not Reportable 04/10/23 05:32 Stanley # (Auto) Not Reportable 04/10/23 05:32 Eos # (Auto) Not Reportable 04/10/23 05:32 Baso # (Auto) Not Reportable 04/10/23 05:32 Absolute Nucleated RBC Not Reportable 04/10/23 05:32 Total Counted 100 04/10/23 05:32 Band Neuts % (Manual) 1 % (0-10) 04/10/23 05:32 Reactive Lymphs % (Man) 3 % 04/05/23 10:25 Abnorm Lymph % (Manual) 0 % 04/10/23 05:32 Metamyelocytes % 2 % (-0) H 04/05/23 04:41 Myelocytes % 1 % (-0) H 04/05/23 10:25 Nucleated RBC % Not Reportable 04/10/23 05:32 Neutrophils # (Manual) 18.3 10^3/uL (1.5-6.6) H 04/10/23 05:32 Lymphocytes # (Manual) 1.7 10^3/uL (1.5-3.5) 04/10/23 05:32 Monocytes # (Manual) 1.5 10^3/uL (0.0-1.0) H 04/10/23 05:32 Eosinophils # (Manual) 0.0 10^3/uL (0-0.7) 04/10/23 05:32 Basophils # (Manual) 0.0 10^3/uL (0-0.1) 04/10/23 05:32 Differential Comment MANUAL DIFFERENTIAL 04/10/23 05:32 Platelet Estimate NORMAL (130-450,000) (NORMAL) 04/10/23 05:32 Platelet Morphology 1+ GIANT PLATELETS (NORMAL) 04/02/23 17:00 RBC Morph Micro Appear NORMAL APPEARANCE (NORMAL) 04/10/23 05:32 PT 12.1 secs (9.9-12.6) 04/04/23 04:24 INR 1.1 (0.8-1.2) 04/04/23 04:24 Bld Gas Analysis Time 0646 04/05/23 06:46 Sample Site RIGHT RADIAL 04/05/23 06:46 ABG pH 7.39 (7.35-7.45) 04/05/23 06:46 ABG pCO2 67 mmHg (34-45) H* 04/05/23 06:46 ABG pO2 135 mmHg (80-100) H 04/05/23 06:46 ABG HCO3 39.4 mmol/L (22.0-26.0) H 04/05/23 06:46 ABG Total CO2 41.5 MMOL/L (21.0-29.0) H* 04/05/23 06:46 ABG O2 Saturation 99 % (94-98) H 04/05/23 06:46 ABG Base Excess 12.2 mmol/L (-2.0-3.0) H 04/05/23 06:46 Ganga Test POSITIVE 04/05/23 06:46 VBG pH 7.435 (7.31-7.41) H 04/08/23 04:30 VBG pCO2 71.7 mmHg (41-51) H 04/03/23 05:24 VBG pO2 56.5 mmHg (25-47) H 04/03/23 05:24 VBG HCO3 31.7 mmol/L (23-28) H 04/03/23 05:24 VBG Total CO2 33.9 mmol/L (24-29) H 04/03/23 05:24 VBG O2 Saturation 87.8 % (60-80) H 04/03/23 05:24 VBG Base Excess 2.8 mmol/L (-2 - +2) H 04/03/23 05:24 Ionized Calcium 1.12 mmol/L (1.15-1.33) L 04/08/23 04:30 Respiration Rate 14 b/min 04/03/23 12:20 O2 Delivery Device BiPAP 04/05/23 06:46 FiO2 40.00 04/05/23 06:46 EPAP 5 cmH2O 04/05/23 06:46 IPAP 12 cmH2O 04/05/23 06:46 Sodium 139 mmol/L (135-145) 04/10/23 05:32 Potassium 4.8 mmol/L (3.5-4.5) H 04/10/23 05:32 Chloride 98 mmol/L (101-111) L 04/10/23 05:32 Carbon Dioxide 39 mmol/L (21-32) H* 04/10/23 05:32 Anion Gap 2.0 (6-13) L 04/10/23 05:32 BUN 30 mg/dL (6-20) H 04/10/23 05:32 Creatinine 0.7 mg/dL (0.6-1.3) 04/10/23 05:32 Estimated GFR (MDRD) 112 (>89) 04/10/23 05:32 Glucose 106 mg/dL (74-104) H 04/10/23 05:32 Estimat Average Glucose 114 mg/dL (70-100) H 04/03/23 05:24 Hemoglobin A1c % 5.6 % (4.27-6.07) 04/03/23 05:24 Lactic Acid 0.5 mmol/L (0.5-2.2) 04/02/23 17:00 Calcium 8.9 mg/dL (8.5-10.3) 04/10/23 05:32 Phosphorus 4.3 mg/dL (2.5-5.0) 04/08/23 04:30 Magnesium 2.0 mg/dL (1.7-2.3) 04/08/23 04:30 Total Bilirubin 0.2 mg/dL (0.2-1.0) 04/04/23 04:24 AST 10 IU/L (10-42) 04/04/23 04:24 ALT 14 IU/L (10-60) 04/04/23 04:24 Alkaline Phosphatase 52 IU/L (42-121) 04/04/23 04:24 Ammonia 32.0 umol/L (18-72) 04/03/23 06:15 Lactate Dehydrogenase 112 IU/L (140-271) L 04/03/23 05:24 Troponin I High Sens 7.1 ng/L (2.3-19.7) 04/06/23 05:00 Total Protein 5.8 g/dL (6.4-8.9) L 04/04/23 04:24 Albumin 3.2 g/dL (3.2-5.5) 04/04/23 04:24 Globulin 2.6 g/dL (2.1-4.2) 04/04/23 04:24 Albumin/Globulin Ratio 1.2 (1.0-2.2) 04/04/23 04:24 Triglycerides 108 mg/dL (48-352) 04/03/23 05:24 Cholesterol 179 mg/dL (-200) 04/03/23 05:24 LDL Cholesterol, Calc 88 mg/dL (-129) 04/03/23 05:24 VLDL Cholesterol 22 mg/dL 04/03/23 05:24 HDL Cholesterol 69 mg/dL (60-) 04/03/23 05:24 LDL/HDL Ratio 1.3 (<3.6) 04/03/23 05:24 Cholesterol/HDL Ratio 2.6 (<5.0) 04/03/23 05:24 TSH 0.54 uIU/mL (0.34-5.60) 04/03/23 05:24 Nasal Adenovirus (PCR) NOT DETECTED 04/02/23 17:07 Nasal B. parapertussis DNA (PCR) NOT DETECTED 04/02/23 17:07 Nasal Coronavir 229E PCR NOT DETECTED 04/02/23 17:07 Nasal Coronavir HKU1 PCR NOT DETECTED 04/02/23 17:07 Nasal Coronavir NL63 PCR NOT DETECTED 04/02/23 17:07 Nasal Coronavir OC43 PCR NOT DETECTED 04/02/23 17:07 Nasal Enterovir/Rhinovir PCR NOT DETECTED 04/02/23 17:07 Nasal Influenza B PCR NOT DETECTED 04/02/23 17:07 Nasal Influenza A PCR NOT DETECTED 04/02/23 17:07 Nasal Parainfluen 1 PCR NOT DETECTED 04/02/23 17:07 Nasal Parainfluen 2 PCR NOT DETECTED 04/02/23 17:07 Nasal Parainfluen 3 PCR NOT DETECTED 04/02/23 17:07 Nasal Parainfluen 4 PCR NOT DETECTED 04/02/23 17:07 Nasal RSV (PCR) NOT DETECTED 04/02/23 17:07 Nasal Screen MRSA (PCR) NEGATIVE (NEGATIVE) 04/03/23 05:15 Nasal B.pertussis DNA PCR NOT DETECTED 04/02/23 17:07 Nasal C.pneumoniae (PCR) NOT DETECTED 04/02/23 17:07 Lenin Human Metapneumo PCR NOT DETECTED 04/02/23 17:07 Nasal M.pneumoniae (PCR) NOT DETECTED 04/02/23 17:07 Nasal SARS-CoV-2 (PCR) NOT DETECTED 04/02/23 17:07 Ethyl Alcohol < 10.0 mg/dL 04/02/23 17:00 - Procedures Procedures: Procedures CATARAC PHACOEMULS/ASPIR (07/16/14) EXCISION OF ASCENDING COLON, ENDO (08/21/18) EXCISION OF DESCENDING COLON, ENDO (08/21/18) EXCISION OF SIGMOID COLON, ENDO (08/21/18) EXCISION OF TRANSVERSE COLON, ENDO (08/21/18) INSERT LENS AT CATAR EXT (07/16/14) REPLACEMENT OF RIGHT LENS WITH SYNTH SUB, PERC APPROACH (12/24/14) ABX Reporting Has patient been on IV antibiotics over the past 48 hours?: No Current Medications - Current Medications Current Medications: Active Medications Acetaminophen (Acetaminophen 325 Mg Tablet) 325 mg PO Q4HR PRN PRN Reason: Pain 1 to 4, or Fever Last Admin: 04/06/23 03:03 Dose: 325 mg Albuterol (Albuterol Neb 2.5 Mg/3 Ml) 2.5 mg INH RTQ4H PRN PRN Reason: Wheezing Albuterol/Ipratropium (Ipratropium/Albuterol 3 Ml Neb) 3 ml INH Q4HR PRN PRN Reason: Wheezing Albuterol/Ipratropium (Ipratropium/Albuterol 3 Ml Neb) 3 ml INH RTQID [facility] Last Admin: 04/11/23 15:03 Dose: 3 ml Aspirin (Aspirin Ec 81 Mg Tablet) 81 mg PO DAILY [facility] Last Admin: 04/11/23 08:47 Dose: 81 mg Budesonide (Budesonide 0.5 Mg/2 Ml Neb) 0.5 mg INH RTBID [facility] Last Admin: 04/11/23 07:16 Dose: 0.5 mg Cholecalciferol (Cholecalciferol 25 Mcg Tablet) 25 mcg PO DAILY [facility] Last Admin: 04/11/23 08:44 Dose: 25 mcg Docusate Sodium (Docusate Sodium 250 Mg Capsule) 250 - 500 mg PO DAILY [facility] Last Admin: 04/11/23 08:44 Dose: 500 mg Enoxaparin Sodium (Enoxaparin 40 Mg/0.4 Ml Syringe) 40 mg SUBQ DAILY [facility] Last Admin: 04/11/23 08:41 Dose: 40 mg Formoterol Fumarate (Formoterol Fumarate Neb 20 Mcg/2 Ml) 20 mcg INH RTBID [facility] Last Admin: 04/11/23 07:16 Dose: 20 mcg Guaifenesin (Guaifenesin 600 Mg Tablet) 600 mg PO BID [facility] Last Admin: 04/11/23 08:44 Dose: 600 mg Guaifenesin/Codeine Phosphate (Guaifenesin/Codeine 5 Ml Udc) 5 ml PO Q6HR PRN PRN Reason: Cough Last Admin: 04/10/23 12:15 Dose: 5 ml Losartan Potassium (Losartan 50 Mg Tablet) 50 mg PO DAILY [facility] Last Admin: 04/11/23 08:44 Dose: 50 mg Magnesium Oxide (Magnesium Oxide 400 Mg Tablet) 400 mg PO DAILY [facility] Last Admin: 04/11/23 08:44 Dose: 400 mg Methylprednisolone (Methylprednisolone Succinate 40 Mg/Ml Vial) 40 mg IVP BID [facility] Last Admin: 04/11/23 08:43 Dose: 40 mg Metoprolol Succinate (Metoprolol Succinate 25 Mg Tablet) 12.5 mg PO DAILY [facility] Last Admin: 04/11/23 08:42 Dose: 12.5 mg Multivitamins (Multivitamin Tablet) 1 tab PO DAILYWM [facility] Last Admin: 04/11/23 08:44 Dose: 1 tab Ondansetron HCl (Ondansetron 4 Mg/2 Ml Vial) 4 mg IVP Q6HR PRN PRN Reason: Nausea / Vomiting Last Admin: 04/06/23 17:32 Dose: 4 mg Ondansetron HCl (Ondansetron Odt 4 Mg Tablet) 4 mg TL Q4HR PRN PRN Reason: Nausea / Vomiting Last Admin: 04/09/23 17:50 Dose: 4 mg Pantoprazole Sodium (Pantoprazole 40 Mg Tablet) 40 mg PO QDBREAKFAST [facility] Last Admin: 04/11/23 08:47 Dose: 40 mg Polyethylene Glycol (Polyethylene Glycol 3350 17 Gm Packet) 17 gm PO DAILY [facility] Last Admin: 04/11/23 08:45 Dose: Not Given Senna (Senna 8.6 Mg Tablet) 8.6 - 17.2 mg PO DAILY [facility] Last Admin: 04/11/23 08:45 Dose: Not Given Sertraline HCl (Sertraline 25 Mg Tablet) 100 mg PO DAILY [facility] Last Admin: 04/11/23 08:42 Dose: 100 mg Sodium Chloride (Sodium Chloride Flush 0.9% 10 Ml Syringe) 10 ml IVP 0100,0900,1700 [facility] Last Admin: 04/11/23 15:56 Dose: 10 ml Sodium Chloride (Sodium Chloride Flush 0.9% 10 Ml Syringe) 10 ml IVP PRN PRN PRN Reason: NEEDED PER PROVIDER ORDERS Last Admin: 04/08/23 06:05 Dose: 10 ml Thiamine HCl (Thiamine 100 Mg Tablet) 100 mg PO DAILY [facility] Last Admin: 04/11/23 08:44 Dose: 100 mg Throat Lozenges (Benzocaine/Menthol Lozenge) 1 lozenge MM Q2HR PRN PRN Reason: Mouth Sore Pain Trazodone HCl (Trazodone 50 Mg Tablet) 100 mg PO HS PRN PRN Reason: Insomnia Last Admin: 04/10/23 21:45 Dose: 100 mg traZODone [Desyrel] 50 - 100 mg PO HS PRN 01/14/21 Furosemide [Lasix] 20 - 40 mg PO DAILY PRN 01/15/21 estradioL [Estrace] 2 mg PO DAILY 01/15/21 predniSONE [Deltasone] 10 mg PO DAILY 01/15/21 Tiotropium [place] [Spiriva Handihaler] 1 cap INH DAILY 08/18/21 Potassium Chloride [Klor-Con 10] 20 meq PO DAILY 08/19/21
--- NOTE | 2023-04-12 21:25 | PROVIDER PROGRESS NOTE ---
Assessment/Plan - Problem List (1) Acute respiratory failure with hypoxia Assessment/Plan: (1) Acute respiratory failure with hypoxia Assessment/Plan: Mr. England was admitted with acute respiratory failure secondary to COPD exacerbation and pneumonia. He currently is at his baseline. During this hospitalization we attempted to qualify him for bilevel positive airway pressure therapy, unfortunately, he did not qualify. He is oxygen dependent and requires 2 to 3 L/min by nasal cannula (2) COPD exacerbation Plan: Continue Solu-Medrol, Pulmicort and DuoNeb. Resolved. Patient currently near baseline. (3) Community acquired Pneumonia Plan: Resolved. Patient has completed course of ceftriaxone and azithromycin. (4) Alcohol withdrawal Resolved. Cont mvi, thiamine ivf (5) Alcohol abuse He drinks whiskey.He was in significant alcohol withdrawal at admission. Alcohol withdrawal has resolved. (6) Prerenal azotemia Assessment/Plan: Patient appears to be at his baseline. (7) HTN Assessment/Plan: Losartan discontinued due to new onset of dizziness/lightheadedness upon standing. (8) Nausea Assessment/Plan: He continues to have intermittent episodes of nausea after eating. (9) Tobacco use As per Hx. Patient counseled to quit smoking. (10) Hyponatremia RESOLVED (11) Thrombocytosis RESOLVED (12) AMS RESOLVED Patient is no longer medically cleared due to the fact that he is having episodes of lightheadedness and dizziness upon standing. During the day had several episodes of near syncope. - Current Meds Current Meds: Current Medications Generic Name Dose Route Start Last Admin Trade Name Freq PRN Reason Stop Dose Admin Acetaminophen 325 mg 04/03/23 03:42 04/12/23 15:38 Acetaminophen 325 Mg Tablet PO 325 mg Q4HR PRN Administration Pain 1 to 4, or Fever Albuterol/Ipratropium 3 ml 04/03/23 07:00 04/12/23 17:57 Ipratropium/Albuterol 3 Ml Neb INH 3 ml RTQID ELISABET Administration Aspirin 81 mg 04/03/23 09:00 04/12/23 08:10 Aspirin Ec 81 Mg Tablet PO 81 mg DAILY ELISABET Administration Budesonide 0.5 mg 04/03/23 19:00 04/12/23 17:57 Budesonide 0.5 Mg/2 Ml Neb INH 0.5 mg RTBID ELISABET Administration Cholecalciferol 25 mcg 04/03/23 09:00 04/12/23 08:10 Cholecalciferol 25 Mcg Tablet PO 25 mcg DAILY ELISABET Administration Docusate Sodium 250 - 500 mg 04/07/23 13:00 04/12/23 08:10 Docusate Sodium 250 Mg Capsule PO 500 mg DAILY ELISABET Administration Enoxaparin Sodium 40 mg 04/04/23 09:00 04/12/23 08:09 Enoxaparin 40 Mg/0.4 Ml Syringe SUBQ 40 mg DAILY ELISABET Administration Formoterol Fumarate 20 mcg 04/03/23 19:00 04/12/23 17:57 Formoterol Fumarate Neb 20 Mcg/2 Ml INH 20 mcg RTBID [facility] Administration Guaifenesin 600 mg 04/03/23 09:00 04/12/23 08:10 Guaifenesin 600 Mg Tablet PO 600 mg BID ELISABET Administration Guaifenesin/Codeine Phosphate 5 ml 04/07/23 19:00 04/10/23 12:15 Guaifenesin/Codeine 5 Ml Udc PO 5 ml Q6HR PRN Administration Cough Magnesium Oxide 400 mg 04/03/23 09:00 04/12/23 08:10 Magnesium Oxide 400 Mg Tablet PO 400 mg DAILY [facility] Administration Metoprolol Succinate 12.5 mg 04/03/23 09:00 04/12/23 08:11 Metoprolol Succinate 25 Mg Tablet PO 12.5 mg DAILY [facility] Administration Multivitamins 1 tab 04/03/23 08:00 04/12/23 08:10 Multivitamin Tablet PO 1 tab DAILYWM [facility]ISABET Administration Ondansetron HCl 4 mg 04/02/23 21:16 04/06/23 17:32 Ondansetron 4 Mg/2 Ml Vial IVP 4 mg Q6HR PRN Administration Nausea / Vomiting Ondansetron HCl 4 mg 04/08/23 15:13 04/09/23 17:50 Ondansetron Odt 4 Mg Tablet TL 4 mg Q4HR PRN Administration Nausea / Vomiting Pantoprazole Sodium 40 mg 04/05/23 08:00 04/12/23 08:10 Pantoprazole 40 Mg Tablet PO 40 mg QDBREAKFAST ELISABET Administration Polyethylene Glycol 17 gm 04/07/23 13:00 04/12/23 08:11 Polyethylene Glycol 3350 17 Gm Packet PO Not Given DAILY [facility] Senna 8.6 - 17.2 mg 04/07/23 13:00 04/12/23 08:11 Senna 8.6 Mg Tablet PO Not Given DAILY ELISABET Sertraline HCl 100 mg 04/04/23 12:00 04/12/23 08:10 Sertraline 25 Mg Tablet PO 100 mg DAILY ELISABET Administration Sodium Chloride 10 ml 04/03/23 09:00 04/12/23 20:23 Sodium Chloride Flush 0.9% 10 Ml Syringe IVP 10 ml 0100,0900,1700 ELISABET Administration Sodium Chloride 10 ml 04/03/23 03:42 04/08/23 06:05 Sodium Chloride Flush 0.9% 10 Ml Syringe IVP 10 ml PRN PRN Administration NEEDED PER PROVIDER ORDERS Thiamine HCl 100 mg 04/05/23 11:00 04/12/23 08:10 Thiamine 100 Mg Tablet PO 100 mg DAILY ELISABET Administration Trazodone HCl 100 mg 04/04/23 11:52 04/11/23 21:12 Trazodone 50 Mg Tablet PO 100 mg HS PRN Administration Insomnia - Lab Result Fish Bone Diagrams: 04/13/23 10:37 04/13/23 10:37 - Additional Planning My Orders: My Active Orders 04/13/23 08:00 predniSONE [Deltasone] 20 mg PO DAILYWM Subjective - Subjective Patient Reports: Other (Patient complaining of some dizziness and lightheadednes s today. This occurs when he stands. He has no other complaints.) Objective Vital Signs: Vital Signs - 24 hr 04/12/23 04/12/23 04/12/23 00:42 06:30 08:12 Temperature 36.7 C 36.8 C Heart Rate 73 Heart Rate [ 87 83 Brachial] Respiratory 20 16 20 Rate Blood Pressure 127/70 122/67 [Right Brachial artery] O2 Saturation 93 93 If not protocol 2 : Oxygen Flow, liters/minute 04/12/23 04/12/23 04/12/23 09:39 15:50 17:59 Temperature 36.8 C Heart Rate 89 Heart Rate [ 96 86 Brachial] Respiratory 20 20 17 Rate Blood Pressure 114/57 L 100/58 L [Right Brachial artery] O2 Saturation 94 94 If not protocol 2 : Oxygen Flow, liters/minute 04/12/23 04/12/23 04/12/23 18:00 18:05 18:10 Temperature Heart Rate Heart Rate [ 86 87 96 Brachial] Respiratory Rate Blood Pressure 106/60 89/44 L 70/43 L [Right Brachial artery] O2 Saturation If not protocol : Oxygen Flow, liters/minute Oxygen O2 Source [With Activity] Nasal cannula O2 Source Nasal cannula Oxygen Flow Rate 2 I&O (Last 24 Hrs): Intake and Output Totals x24h 04/10/23 04/11/23 04/12/23 23:59 23:59 23:59 Intake Total 1680 1947 875 Output Total 300 400 Balance 1380 1947 475 General: Oriented x3, No acute distress HEENT: Atraumatic Neck: Supple, No JVD, No thyromegaly Lymphatic: no adenopathy Neuro: Alert, Non Focal Cardiovascular: Other (Positive S1-S2 no extra heart sounds) Respiratory: Other (Good air exchange in all lung saucedo no wheezing no crackles) Abdomen: Normal bowel sounds, Soft, No tenderness Extremities: No cyanosis, No edema Skin: No rashes - Results Results: Laboratory Results WBC 21.5 x10^3/uL (4.8-10.8) H 04/10/23 05:32 RBC 3.23 10^6/uL (4.70-6.10) L 04/10/23 05:32 Hgb 9.8 g/dL (14.0-18.0) L 04/10/23 05:32 Hct 31.1 % (42.0-52.0) L 04/10/23 05:32 MCV 96.3 fL (80.0-94.0) H 04/10/23 05:32 MCH 30.3 pg (27.0-31.0) 04/10/23 05:32 MCHC 31.5 g/dL (32.0-36.0) L 04/10/23 05:32 RDW 13.9 % (12.0-15.0) 04/10/23 05:32 Plt Count 416 10^3/uL (130-450) 04/10/23 05:32 MPV 9.3 fL (7.4-11.4) 04/10/23 05:32 Neut # (Auto) Not Reportable 04/10/23 05:32 Lymph # (Auto) Not Reportable 04/10/23 05:32 [place] # (Auto) Not Reportable 04/10/23 05:32 Eos # (Auto) Not Reportable 04/10/23 05:32 Baso # (Auto) Not Reportable 04/10/23 05:32 Absolute Nucleated RBC Not Reportable 04/10/23 05:32 Total Counted 100 04/10/23 05:32 Band Neuts % (Manual) 1 % (0-10) 04/10/23 05:32 Reactive Lymphs % (Man) 3 % 04/05/23 10:25 Abnorm Lymph % (Manual) 0 % 04/10/23 05:32 Metamyelocytes % 2 % (-0) H 04/05/23 04:41 Myelocytes % 1 % (-0) H 04/05/23 10:25 Nucleated RBC % Not Reportable 04/10/23 05:32 Neutrophils # (Manual) 18.3 10^3/uL (1.5-6.6) H 04/10/23 05:32 Lymphocytes # (Manual) 1.7 10^3/uL (1.5-3.5) 04/10/23 05:32 Monocytes # (Manual) 1.5 10^3/uL (0.0-1.0) H 04/10/23 05:32 Eosinophils # (Manual) 0.0 10^3/uL (0-0.7) 04/10/23 05:32 Basophils # (Manual) 0.0 10^3/uL (0-0.1) 04/10/23 05:32 Differential Comment MANUAL DIFFERENTIAL 04/10/23 05:32 Platelet Estimate NORMAL (130-450,000) (NORMAL) 04/10/23 05:32 Platelet Morphology 1+ GIANT PLATELETS (NORMAL) 04/02/23 17:00 RBC Morph Micro Appear NORMAL APPEARANCE (NORMAL) 04/10/23 05:32 PT 12.1 secs (9.9-12.6) 04/04/23 04:24 INR 1.1 (0.8-1.2) 04/04/23 04:24 Bld Gas Analysis Time 0646 04/05/23 06:46 Sample Site RIGHT RADIAL 04/05/23 06:46 ABG pH 7.39 (7.35-7.45) 04/05/23 06:46 ABG pCO2 67 mmHg (34-45) H* 04/05/23 06:46 ABG pO2 135 mmHg (80-100) H 04/05/23 06:46 ABG HCO3 39.4 mmol/L (22.0-26.0) H 04/05/23 06:46 ABG Total CO2 41.5 MMOL/L (21.0-29.0) H* 04/05/23 06:46 ABG O2 Saturation 99 % (94-98) H 04/05/23 06:46 ABG Base Excess 12.2 mmol/L (-2.0-3.0) H 04/05/23 06:46 Ganga Test POSITIVE 04/05/23 06:46 VBG pH 7.435 (7.31-7.41) H 04/08/23 04:30 VBG pCO2 71.7 mmHg (41-51) H 04/03/23 05:24 VBG pO2 56.5 mmHg (25-47) H 04/03/23 05:24 VBG HCO3 31.7 mmol/L (23-28) H 04/03/23 05:24 VBG Total CO2 33.9 mmol/L (24-29) H 04/03/23 05:24 VBG O2 Saturation 87.8 % (60-80) H 04/03/23 05:24 VBG Base Excess 2.8 mmol/L (-2 - +2) H 04/03/23 05:24 Ionized Calcium 1.12 mmol/L (1.15-1.33) L 04/08/23 04:30 Respiration Rate 14 b/min 04/03/23 12:20 O2 Delivery Device BiPAP 04/05/23 06:46 FiO2 40.00 04/05/23 06:46 EPAP 5 cmH2O 04/05/23 06:46 IPAP 12 cmH2O 04/05/23 06:46 Sodium 139 mmol/L (135-145) 04/10/23 05:32 Potassium 4.8 mmol/L (3.5-4.5) H 04/10/23 05:32 Chloride 98 mmol/L (101-111) L 04/10/23 05:32 Carbon Dioxide 39 mmol/L (21-32) H* 04/10/23 05:32 Anion Gap 2.0 (6-13) L 04/10/23 05:32 BUN 30 mg/dL (6-20) H 04/10/23 05:32 Creatinine 0.7 mg/dL (0.6-1.3) 04/10/23 05:32 Estimated GFR (MDRD) 112 (>89) 04/10/23 05:32 Glucose 106 mg/dL (74-104) H 04/10/23 05:32 Estimat Average Glucose 114 mg/dL (70-100) H 04/03/23 05:24 Hemoglobin A1c % 5.6 % (4.27-6.07) 04/03/23 05:24 Lactic Acid 0.5 mmol/L (0.5-2.2) 04/02/23 17:00 Calcium 8.9 mg/dL (8.5-10.3) 04/10/23 05:32 Phosphorus 4.3 mg/dL (2.5-5.0) 04/08/23 04:30 Magnesium 2.0 mg/dL (1.7-2.3) 04/08/23 04:30 Total Bilirubin 0.2 mg/dL (0.2-1.0) 04/04/23 04:24 AST 10 IU/L (10-42) 04/04/23 04:24 ALT 14 IU/L (10-60) 04/04/23 04:24 Alkaline Phosphatase 52 IU/L (42-121) 04/04/23 04:24 Ammonia 32.0 umol/L (18-72) 04/03/23 06:15 Lactate Dehydrogenase 112 IU/L (140-271) L 04/03/23 05:24 Troponin I High Sens 7.1 ng/L (2.3-19.7) 04/06/23 05:00 Total Protein 5.8 g/dL (6.4-8.9) L 04/04/23 04:24 Albumin 3.2 g/dL (3.2-5.5) 04/04/23 04:24 Globulin 2.6 g/dL (2.1-4.2) 04/04/23 04:24 Albumin/Globulin Ratio 1.2 (1.0-2.2) 04/04/23 04:24 Triglycerides 108 mg/dL (48-352) 04/03/23 05:24 Cholesterol 179 mg/dL (-200) 04/03/23 05:24 LDL Cholesterol, Calc 88 mg/dL (-129) 04/03/23 05:24 VLDL Cholesterol 22 mg/dL 04/03/23 05:24 HDL Cholesterol 69 mg/dL (60-) 04/03/23 05:24 LDL/HDL Ratio 1.3 (<3.6) 04/03/23 05:24 Cholesterol/HDL Ratio 2.6 (<5.0) 04/03/23 05:24 TSH 0.54 uIU/mL (0.34-5.60) 04/03/23 05:24 Nasal Adenovirus (PCR) NOT DETECTED 04/02/23 17:07 Nasal B. parapertussis DNA (PCR) NOT DETECTED 04/02/23 17:07 Nasal Coronavir 229E PCR NOT DETECTED 04/02/23 17:07 Nasal Coronavir HKU1 PCR NOT DETECTED 04/02/23 17:07 Nasal Coronavir NL63 PCR NOT DETECTED 04/02/23 17:07 Nasal Coronavir OC43 PCR NOT DETECTED 04/02/23 17:07 Nasal Enterovir/Rhinovir PCR NOT DETECTED 04/02/23 17:07 Nasal Influenza B PCR NOT DETECTED 04/02/23 17:07 Nasal Influenza A PCR NOT DETECTED 04/02/23 17:07 Nasal Parainfluen 1 PCR NOT DETECTED 04/02/23 17:07 Nasal Parainfluen 2 PCR NOT DETECTED 04/02/23 17:07 Nasal Parainfluen 3 PCR NOT DETECTED 04/02/23 17:07 Nasal Parainfluen 4 PCR NOT DETECTED 04/02/23 17:07 Nasal RSV (PCR) NOT DETECTED 04/02/23 17:07 Nasal Screen MRSA (PCR) NEGATIVE (NEGATIVE) 04/03/23 05:15 Nasal B.pertussis DNA PCR NOT DETECTED 04/02/23 17:07 Nasal C.pneumoniae (PCR) NOT DETECTED 04/02/23 17:07 Lenin Human Metapneumo PCR NOT DETECTED 04/02/23 17:07 Nasal M.pneumoniae (PCR) NOT DETECTED 04/02/23 17:07 Nasal SARS-CoV-2 (PCR) NOT DETECTED 04/02/23 17:07 Ethyl Alcohol < 10.0 mg/dL 04/02/23 17:00 - Procedures Procedures: Procedures CATARAC PHACOEMULS/ASPIR (07/16/14) EXCISION OF ASCENDING COLON, ENDO (08/21/18) EXCISION OF DESCENDING COLON, ENDO (08/21/18) EXCISION OF SIGMOID COLON, ENDO (08/21/18) EXCISION OF TRANSVERSE COLON, ENDO (08/21/18) INSERT LENS AT CATAR EXT (07/16/14) REPLACEMENT OF RIGHT LENS WITH SYNTH SUB, PERC APPROACH (12/24/14) Current Medications - Current Medications Current Medications: Active Medications Acetaminophen (Acetaminophen 325 Mg Tablet) 325 mg PO Q4HR PRN PRN Reason: Pain 1 to 4, or Fever Last Admin: 04/12/23 15:38 Dose: 325 mg Albuterol (Albuterol Neb 2.5 Mg/3 Ml) 2.5 mg INH RTQ4H PRN PRN Reason: Wheezing Albuterol/Ipratropium (Ipratropium/Albuterol 3 Ml Neb) 3 ml INH Q4HR PRN PRN Reason: Wheezing Albuterol/Ipratropium (Ipratropium/Albuterol 3 Ml Neb) 3 ml INH RTQID [facility] Last Admin: 04/12/23 17:57 Dose: 3 ml Aspirin (Aspirin Ec 81 Mg Tablet) 81 mg PO DAILY [facility] Last Admin: 04/12/23 08:10 Dose: 81 mg Budesonide (Budesonide 0.5 Mg/2 Ml Neb) 0.5 mg INH RTBID [facility] Last Admin: 04/12/23 17:57 Dose: 0.5 mg Cholecalciferol (Cholecalciferol 25 Mcg Tablet) 25 mcg PO DAILY [facility] Last Admin: 04/12/23 08:10 Dose: 25 mcg Docusate Sodium (Docusate Sodium 250 Mg Capsule) 250 - 500 mg PO DAILY [facility] Last Admin: 04/12/23 08:10 Dose: 500 mg Enoxaparin Sodium (Enoxaparin 40 Mg/0.4 Ml Syringe) 40 mg SUBQ DAILY [facility] Last Admin: 04/12/23 08:09 Dose: 40 mg Formoterol Fumarate (Formoterol Fumarate Neb 20 Mcg/2 Ml) 20 mcg INH RTBID [facility] Last Admin: 04/12/23 17:57 Dose: 20 mcg Guaifenesin (Guaifenesin 600 Mg Tablet) 600 mg PO BID [facility] Last Admin: 04/12/23 08:10 Dose: 600 mg Guaifenesin/Codeine Phosphate (Guaifenesin/Codeine 5 Ml Udc) 5 ml PO Q6HR PRN PRN Reason: Cough Last Admin: 04/10/23 12:15 Dose: 5 ml Magnesium Oxide (Magnesium Oxide 400 Mg Tablet) 400 mg PO DAILY [facility] Last Admin: 04/12/23 08:10 Dose: 400 mg Metoprolol Succinate (Metoprolol Succinate 25 Mg Tablet) 12.5 mg PO DAILY [facility] Last Admin: 04/12/23 08:11 Dose: 12.5 mg Multivitamins (Multivitamin Tablet) 1 tab PO DAILYWM [facility] Last Admin: 04/12/23 08:10 Dose: 1 tab Ondansetron HCl (Ondansetron 4 Mg/2 Ml Vial) 4 mg IVP Q6HR PRN PRN Reason: Nausea / Vomiting Last Admin: 04/06/23 17:32 Dose: 4 mg Ondansetron HCl (Ondansetron Odt 4 Mg Tablet) 4 mg TL Q4HR PRN PRN Reason: Nausea / Vomiting Last Admin: 04/09/23 17:50 Dose: 4 mg Pantoprazole Sodium (Pantoprazole 40 Mg Tablet) 40 mg PO QDBREAKFAST [facility] Last Admin: 04/12/23 08:10 Dose: 40 mg Polyethylene Glycol (Polyethylene Glycol 3350 17 Gm Packet) 17 gm PO DAILY [facility] Last Admin: 04/12/23 08:11 Dose: Not Given Prednisone (Prednisone 20 Mg Tablet) 20 mg PO DAILYWM [facility] Senna (Senna 8.6 Mg Tablet) 8.6 - 17.2 mg PO DAILY [facility] Last Admin: 04/12/23 08:11 Dose: Not Given Sertraline HCl (Sertraline 25 Mg Tablet) 100 mg PO DAILY [facility] Last Admin: 04/12/23 08:10 Dose: 100 mg Sodium Chloride (Sodium Chloride Flush 0.9% 10 Ml Syringe) 10 ml IVP 0100,0900,1700 [facility] Last Admin: 04/12/23 20:23 Dose: 10 ml Sodium Chloride (Sodium Chloride Flush 0.9% 10 Ml Syringe) 10 ml IVP PRN PRN PRN Reason: NEEDED PER PROVIDER ORDERS Last Admin: 04/08/23 06:05 Dose: 10 ml Thiamine HCl (Thiamine 100 Mg Tablet) 100 mg PO DAILY [facility] Last Admin: 04/12/23 08:10 Dose: 100 mg Throat Lozenges (Benzocaine/Menthol Lozenge) 1 lozenge MM Q2HR PRN PRN Reason: Mouth Sore Pain Trazodone HCl (Trazodone 50 Mg Tablet) 100 mg PO HS PRN PRN Reason: Insomnia Last Admin: 04/11/23 21:12 Dose: 100 mg traZODone [Desyrel] 50 - 100 mg PO HS PRN 01/14/21 Furosemide [Lasix] 20 - 40 mg PO DAILY PRN 01/15/21 estradioL [Estrace] 2 mg PO DAILY 01/15/21 predniSONE [Deltasone] 10 mg PO DAILY 01/15/21 Tiotropium Mathews [Spiriva Handihaler] 1 cap INH DAILY 08/18/21 Potassium Chloride [Klor-Con 10] 20 meq PO DAILY 08/19/21
[2023-04-13] MEDS: predniSONE 20 MG TABLET PO SCH (08:24)
[2023-04-13 10:40] LABS: BASOPHILS % (AUTO) 0.2 %; EOSINOPHILS # (AUTO) 0.3 10^3/uL (0.0-0.7); EOSINOPHILS % (AUTO) 1.8 %; HCT - HEMATOCRIT 30.5 % (42.0-52.0); HGB - HEMOGLOBIN 9.3 g/dL (14.0-18.0); LYMPHOCYTES # (AUTO) 0.9 10^3/uL (1.5-3.5); LYMPHOCYTES % (AUTO) 4.8 %; MEAN CORPUSCULAR HEMOGLOBIN 29.2 pg (27.0-31.0); MEAN CORPUSCULAR HGB CONC 30.5 g/dL (32.0-36.0); MEAN CORPUSCULAR VOLUME 95.6 fL (80.0-94.0); MEAN PLATELET VOLUME 8.5 fL (7.4-11.4); MONOCYTES # (AUTO) 1.7 10^3/uL (0.0-1.0); MONOCYTES % (AUTO) 9.1 %; NEUTROPHILS # (AUTO) 15.4 10^3/uL (1.5-6.6); NEUTROPHILS % (AUTO) 83.5 %; PLT - PLATELET COUNT 413 10^3/uL (130-450); RED BLOOD COUNT 3.19 10^6/uL (4.70-6.10); RED CELL DISTRIBUTION WIDTH 13.9 % (12.0-15.0); WHITE BLOOD COUNT 18.5 x10^3/uL (4.8-10.8)
[2023-04-13 10:45] LABS: SLIDE REVIEW? Indicated
[2023-04-13 10:52] LABS: CALCIUM 8.5 mg/dL (8.5-10.3); CREATININE 0.8 mg/dL (0.6-1.3); PHOSPHORUS 3.7 mg/dL (2.5-5.0); POTASSIUM 4.4 mmol/L (3.5-4.5)
[2023-04-13 11:00] LABS: PLATELET ESTIMATE, MANUAL NORMAL (130-450,000) (NORMAL); PLATELET MORPHOLOGY NORMAL APPEARANCE (NORMAL)
[2023-04-13 11:01] LABS: RBC MORPHOLOGY (MULTIPLE) 1+ STOMATOCYTES (NORMAL)
[2023-04-13] MEDS: SODIUM CHLORIDE 0.9% 500 ML IV ONE (11:18)
[2023-04-13] MEDS: CALCIUM CARBONATE CHEW 500 MG TABLET PO SCH (11:26)
--- NOTE | 2023-04-13 21:23 | PROVIDER PROGRESS NOTE ---
Assessment/Plan - Problem List (1) Acute respiratory failure with hypoxia Assessment/Plan: Mr. England was admitted with acute respiratory failure secondary to COPD exacerbation and pneumonia. He currently is at his baseline. During this hospitalization we attempted to qualify him for bilevel positive air way pressure therapy, unfortunately, he did not qualify. He is oxygen dependent and requires 2 to 3 L/min by nasal cannula (2) COPD exacerbation Plan: Continue Solu-Medrol, Pulmicort and DuoNeb. Resolved. Patient currently near baseline. (3) Community acquired Pneumonia Plan: Resolved. Patient has completed course of ceftriaxone and azithromycin. (4) Alcohol withdrawal Resolved. Cont mvi, thiamine ivf (5) Alcohol abuse He drinks whiskey.He was in significant alcohol withdrawal at admission. Alcohol withdrawal has resolved. (6) Prerenal azotemia Assessment/Plan: Patient appears to be at his baseline. (7) HTN Assessment/Plan: Losartan discontinued due to new onset of dizziness/lightheadedness upon s tanding.Metoprolol also discontinued. (8) Nausea Assessment/Plan: He continues to have intermittent episodes of nausea after eating. (9) Tobacco use As per Hx. Patient counseled to quit smoking. (10) Hyponatremia RESOLVED (11) Thrombocytosis RESOLVED (12) AMS RESOLVED Patient is no longer medically cleared due to the fact that he is having episodes of lightheadedness and dizziness upon standing. During the day he continued to have episodes of near syncope. - Current Meds Current Meds: Current Medications Generic Name Dose Route Start Last Admin Trade Name Freq PRN Reason Stop Dose Admin Acetaminophen 325 mg 04/03/23 03:42 04/13/23 08:36 Acetaminophen 325 Mg Tablet PO 325 mg Q4HR PRN Administration Pain 1 to 4, or Fever Albuterol/Ipratropium 3 ml 04/03/23 07:00 04/13/23 20:30 Ipratropium/Albuterol 3 Ml Neb INH 3 ml RTQID ELISABET Administration Aspirin 81 mg 04/03/23 09:00 04/13/23 08:22 Aspirin Ec 81 Mg Tablet PO 81 mg DAILY ELISABET Administration Budesonide 0.5 mg 04/03/23 19:00 04/13/23 20:30 Budesonide 0.5 Mg/2 Ml Neb INH 0.5 mg RTBID ELISABET Administration Calcium Carbonate/Glycine 500 mg 04/13/23 10:20 04/13/23 21:01 Calcium Carbonate Chew 500 Mg Tablet PO 04/23/23 10:19 500 mg BID [facility] Administration Cholecalciferol 25 mcg 04/03/23 09:00 04/13/23 08:22 Cholecalciferol 25 Mcg Tablet PO 25 mcg DAILY ELISABET Administration Docusate Sodium 250 - 500 mg 04/07/23 13:00 04/13/23 08:28 Docusate Sodium 250 Mg Capsule PO 250 mg DAILY [facility] Administration Enoxaparin Sodium 40 mg 04/04/23 09:00 04/13/23 08:30 Enoxaparin 40 Mg/0.4 Ml Syringe SUBQ 40 mg DAILY [facility] Administration Formoterol Fumarate 20 mcg 04/03/23 19:00 04/13/23 20:30 Formoterol Fumarate Neb 20 Mcg/2 Ml INH 20 mcg RTBID [facility] Administration Guaifenesin 600 mg 04/03/23 09:00 04/13/23 21:01 Guaifenesin 600 Mg Tablet PO 600 mg BID [facility] Administration Guaifenesin/Codeine Phosphate 5 ml 04/07/23 19:00 04/13/23 17:37 Guaifenesin/Codeine 5 Ml Udc PO 5 ml Q6HR PRN Administration Cough Magnesium Oxide 400 mg 04/03/23 09:00 04/13/23 08:28 Magnesium Oxide 400 Mg Tablet PO 400 mg DAILY [facility] Administration Multivitamins 1 tab 04/03/23 08:00 04/13/23 08:22 Multivitamin Tablet PO 1 tab DAILYWM [facility] Administration Ondansetron HCl 4 mg 04/02/23 21:16 04/06/23 17:32 Ondansetron 4 Mg/2 Ml Vial IVP 4 mg Q6HR PRN Administration Nausea / Vomiting Ondansetron HCl 4 mg 04/08/23 15:13 04/13/23 08:37 Ondansetron Odt 4 Mg Tablet TL 4 mg Q4HR PRN Administration Nausea / Vomiting Pantoprazole Sodium 40 mg 04/05/23 08:00 04/13/23 08:28 Pantoprazole 40 Mg Tablet PO 40 mg QDBREAKFAST ELISABET Administration Polyethylene Glycol 17 gm 04/07/23 13:00 04/13/23 08:29 Polyethylene Glycol 3350 17 Gm Packet PO 17 gm DAILY [facility] Administration Prednisone 20 mg 04/13/23 08:00 04/13/23 08:24 Prednisone 20 Mg Tablet PO 20 mg DAILYWM ELISABET Administration Senna 8.6 - 17.2 mg 04/07/23 13:00 04/13/23 08:28 Senna 8.6 Mg Tablet PO 8.6 mg DAILY ELISABET Administration Sertraline HCl 100 mg 04/04/23 12:00 04/13/23 08:29 Sertraline 25 Mg Tablet PO 100 mg DAILY ELISABET Administration Sodium Chloride 10 ml 04/03/23 09:00 04/13/23 17:32 Sodium Chloride Flush 0.9% 10 Ml Syringe IVP 10 ml 0100,0900,1700 ELISABET Administration Sodium Chloride 10 ml 04/03/23 03:42 04/13/23 12:22 Sodium Chloride Flush 0.9% 10 Ml Syringe IVP 10 ml PRN PRN Administration NEEDED PER PROVIDER ORDERS Thiamine HCl 100 mg 04/05/23 11:00 04/13/23 08:22 Thiamine 100 Mg Tablet PO 100 mg DAILY ELISABET Administration Trazodone HCl 100 mg 04/04/23 11:52 04/13/23 21:03 Trazodone 50 Mg Tablet PO 100 mg HS PRN Administration Insomnia - Lab Result Fish Bone Diagrams: 04/13/23 10:37 04/13/23 10:37 - Additional Planning My Orders: My Active Orders 04/12/23 22:51 Evaluate and Treat OT [OT] Routine 04/13/23 08:00 predniSONE [Deltasone] 20 mg PO DAILYWM 04/13/23 10:20 Calcium Carbonate [Tums] 500 mg PO BID Subjective - Subjective Patient Reports: Other (Mr. England continues to have episodes of lightheadedness and dizziness upon standing. He is also orthostatic. He has no other complaints at this time.) Objective Vital Signs: Vital Signs - 24 hr 04/13/23 04/13/23 04/13/23 02:00 06:00 08:09 Temperature 37.1 C 36.5 C Heart Rate 80 Heart Rate [ 87 90 Brachial] Respiratory 18 16 20 Rate Blood Pressure 108/61 108/65 [Right Brachial artery] O2 Saturation 93 92 If not protocol 2 2 : Oxygen Flow, liters/minute 04/13/23 04/13/23 04/13/23 15:36 20:20 20:30 Temperature 36.9 C Heart Rate 92 Heart Rate [ 87 Brachial] Respiratory 20 20 Rate Blood Pressure 110/62 [Right Brachial artery] O2 Saturation 96 If not protocol 2 2 2 : Oxygen Flow, liters/minute Oxygen O2 Source [With Activity] Nasal cannula O2 Source Nasal cannula Oxygen Flow Rate 2 I&O (Last 24 Hrs): Intake and Output Totals x24h 04/11/23 04/12/23 04/13/23 23:59 23:59 23:59 Intake Total 1947 1665 2180 Output Total 700 2875 Balance 7 965 -695 General: Alert, Oriented x3 HEENT: Atraumatic Neck: Supple, No JVD, No thyromegaly Neuro: Alert, Non Focal Cardiovascular: Other (Positive S1-S2 no extra heart sounds.) Respiratory: Other (Fair air exchange in all lung saucedo no wheezing no crackles) Abdomen: Normal bowel sounds, Soft, No tenderness Extremities: No clubbing, No cyanosis, No edema Skin: No rashes - Results Results: Laboratory Results WBC 18.5 x10^3/uL (4.8-10.8) H 04/13/23 10:37 RBC 3.19 10^6/uL (4.70-6.10) L 04/13/23 10:37 Hgb 9.3 g/dL (14.0-18.0) L 04/13/23 10:37 Hct 30.5 % (42.0-52.0) L 04/13/23 10:37 MCV 95.6 fL (80.0-94.0) H 04/13/23 10:37 MCH 29.2 pg (27.0-31.0) 04/13/23 10:37 MCHC 30.5 g/dL (32.0-36.0) L 04/13/23 10:37 RDW 13.9 % (12.0-15.0) 04/13/23 10:37 Plt Count 413 10^3/uL (130-450) 04/13/23 10:37 MPV 8.5 fL (7.4-11.4) 04/13/23 10:37 Neut # (Auto) 15.4 10^3/uL (1.5-6.6) H 04/13/23 10:37 Lymph # (Auto) 0.9 10^3/uL (1.5-3.5) L 04/13/23 10:37 [place] # (Auto) 1.7 10^3/uL (0.0-1.0) H 04/13/23 10:37 Eos # (Auto) 0.3 10^3/uL (0.0-0.7) 04/13/23 10:37 Baso # (Auto) 0.0 10^3/uL (0.0-0.1) 04/13/23 10:37 Absolute Nucleated RBC 0.00 x10^3/uL 04/13/23 10:37 Total Counted 100 04/10/23 05:32 Band Neuts % (Manual) 1 % (0-10) 04/10/23 05:32 Reactive Lymphs % (Man) 3 % 04/05/23 10:25 Abnorm Lymph % (Manual) 0 % 04/10/23 05:32 Metamyelocytes % 2 % (-0) H 04/05/23 04:41 Myelocytes % 1 % (-0) H 04/05/23 10:25 Nucleated RBC % 0.0 /100WBC 04/13/23 10:37 Neutrophils # (Manual) 18.3 10^3/uL (1.5-6.6) H 04/10/23 05:32 Lymphocytes # (Manual) 1.7 10^3/uL (1.5-3.5) 04/10/23 05:32 Monocytes # (Manual) 1.5 10^3/uL (0.0-1.0) H 04/10/23 05:32 Eosinophils # (Manual) 0.0 10^3/uL (0-0.7) 04/10/23 05:32 Basophils # (Manual) 0.0 10^3/uL (0-0.1) 04/10/23 05:32 Differential Comment MANUAL DIFFERENTIAL 04/10/23 05:32 Manual Slide Review Indicated 04/13/23 10:37 Platelet Estimate NORMAL (130-450,000) (NORMAL) 04/13/23 10:37 Platelet Morphology NORMAL APPEARANCE (NORMAL) 04/13/23 10:37 RBC Morph Micro Appear 1+ STOMATOCYTES (NORMAL) 04/13/23 10:37 PT 12.1 secs (9.9-12.6) 04/04/23 04:24 INR 1.1 (0.8-1.2) 04/04/23 04:24 Bld Gas Analysis Time 0646 04/05/23 06:46 Sample Site RIGHT RADIAL 04/05/23 06:46 ABG pH 7.39 (7.35-7.45) 04/05/23 06:46 ABG pCO2 67 mmHg (34-45) H* 04/05/23 06:46 ABG pO2 135 mmHg (80-100) H 04/05/23 06:46 ABG HCO3 39.4 mmol/L (22.0-26.0) H 04/05/23 06:46 ABG Total CO2 41.5 MMOL/L (21.0-29.0) H* 04/05/23 06:46 ABG O2 Saturation 99 % (94-98) H 04/05/23 06:46 ABG Base Excess 12.2 mmol/L (-2.0-3.0) H 04/05/23 06:46 Ganga Test POSITIVE 04/05/23 06:46 VBG pH 7.435 (7.31-7.41) H 04/08/23 04:30 VBG pCO2 71.7 mmHg (41-51) H 04/03/23 05:24 VBG pO2 56.5 mmHg (25-47) H 04/03/23 05:24 VBG HCO3 31.7 mmol/L (23-28) H 04/03/23 05:24 VBG Total CO2 33.9 mmol/L (24-29) H 04/03/23 05:24 VBG O2 Saturation 87.8 % (60-80) H 04/03/23 05:24 VBG Base Excess 2.8 mmol/L (-2 - +2) H 04/03/23 05:24 Ionized Calcium 1.12 mmol/L (1.15-1.33) L 04/08/23 04:30 Respiration Rate 14 b/min 04/03/23 12:20 O2 Delivery Device BiPAP 04/05/23 06:46 FiO2 40.00 04/05/23 06:46 EPAP 5 cmH2O 04/05/23 06:46 IPAP 12 cmH2O 04/05/23 06:46 Sodium 136 mmol/L (135-145) 04/13/23 10:37 Potassium 4.4 mmol/L (3.5-4.5) 04/13/23 10:37 Chloride 98 mmol/L (101-111) L 04/13/23 10:37 Carbon Dioxide 36 mmol/L (21-32) H 04/13/23 10:37 Anion Gap 2.0 (6-13) L 04/13/23 10:37 BUN 26 mg/dL (6-20) H 04/13/23 10:37 Creatinine 0.8 mg/dL (0.6-1.3) 04/13/23 10:37 Estimated GFR (MDRD) 96 (>89) 04/13/23 10:37 Glucose 110 mg/dL (74-104) H 04/13/23 10:37 Estimat Average Glucose 114 mg/dL (70-100) H 04/03/23 05:24 Hemoglobin A1c % 5.6 % (4.27-6.07) 04/03/23 05:24 Lactic Acid 0.5 mmol/L (0.5-2.2) 04/02/23 17:00 Calcium 8.5 mg/dL (8.5-10.3) 04/13/23 10:37 Phosphorus 3.7 mg/dL (2.5-5.0) 04/13/23 10:37 Magnesium 2.0 mg/dL (1.7-2.3) 04/13/23 10:37 Total Bilirubin 0.2 mg/dL (0.2-1.0) 04/04/23 04:24 AST 10 IU/L (10-42) 04/04/23 04:24 ALT 14 IU/L (10-60) 04/04/23 04:24 Alkaline Phosphatase 52 IU/L (42-121) 04/04/23 04:24 Ammonia 32.0 umol/L (18-72) 04/03/23 06:15 Lactate Dehydrogenase 112 IU/L (140-271) L 04/03/23 05:24 Troponin I High Sens 7.1 ng/L (2.3-19.7) 04/06/23 05:00 Total Protein 5.8 g/dL (6.4-8.9) L 04/04/23 04:24 Albumin 3.2 g/dL (3.2-5.5) 04/04/23 04:24 Globulin 2.6 g/dL (2.1-4.2) 04/04/23 04:24 Albumin/Globulin Ratio 1.2 (1.0-2.2) 04/04/23 04:24 Triglycerides 108 mg/dL (48-352) 04/03/23 05:24 Cholesterol 179 mg/dL (-200) 04/03/23 05:24 LDL Cholesterol, Calc 88 mg/dL (-129) 04/03/23 05:24 VLDL Cholesterol 22 mg/dL 04/03/23 05:24 HDL Cholesterol 69 mg/dL (60-) 04/03/23 05:24 LDL/HDL Ratio 1.3 (<3.6) 04/03/23 05:24 Cholesterol/HDL Ratio 2.6 (<5.0) 04/03/23 05: TSH 0.54 uIU/mL (0.34-5.60) 04/03/23 05:24 Nasal Adenovirus (PCR) NOT DETECTED 04/02/23 17:07 Nasal B. parapertussis DNA (PCR) NOT DETECTED 04/02/23 17:07 Nasal Coronavir 229E PCR NOT DETECTED 04/02/23 17:07 Nasal Coronavir HKU1 PCR NOT DETECTED 04/02/23 17:07 Nasal Coronavir NL63 PCR NOT DETECTED 04/02/23 17:07 Nasal Coronavir OC43 PCR NOT DETECTED 04/02/23 17:07 Nasal Enterovir/Rhinovir PCR NOT DETECTED 04/02/23 17:07 Nasal Influenza B PCR NOT DETECTED 04/02/23 17:07 Nasal Influenza A PCR NOT DETECTED 04/02/23 17:07 Nasal Parainfluen 1 PCR NOT DETECTED 04/02/23 17:07 Nasal Parainfluen 2 PCR NOT DETECTED 04/02/23 17:07 Nasal Parainfluen 3 PCR NOT DETECTED 04/02/23 17:07 Nasal Parainfluen 4 PCR NOT DETECTED 04/02/23 17:07 Nasal RSV (PCR) NOT DETECTED 04/02/23 17:07 Nasal Screen MRSA (PCR) NEGATIVE (NEGATIVE) 04/03/23 05:15 Nasal B.pertussis DNA PCR NOT DETECTED 04/02/23 17:07 Nasal C.pneumoniae (PCR) NOT DETECTED 04/02/23 17:07 Lenin Human Metapneumo PCR NOT DETECTED 04/02/23 17:07 Nasal M.pneumoniae (PCR) NOT DETECTED 04/02/23 17:07 Nasal SARS-CoV-2 (PCR) NOT DETECTED 04/02/23 17:07 Ethyl Alcohol < 10.0 mg/dL 04/02/23 17:00 - Procedures Procedures: Procedures CATARAC PHACOEMULS/ASPIR (07/16/14) EXCISION OF ASCENDING COLON, ENDO (08/21/18) EXCISION OF DESCENDING COLON, ENDO (08/21/18) EXCISION OF SIGMOID COLON, ENDO (08/21/18) EXCISION OF TRANSVERSE COLON, ENDO (08/21/18) INSERT LENS AT CATAR EXT (07/16/14) REPLACEMENT OF RIGHT LENS WITH SYNTH SUB, PERC APPROACH (12/24/14) Current Medications - Current Medications Current Medications: Active Medications Acetaminophen (Acetaminophen 325 Mg Tablet) 325 mg PO Q4HR PRN PRN Reason: Pain 1 to 4, or Fever Last Admin: 04/13/23 08:36 Dose: 325 mg Albuterol (Albuterol Neb 2.5 Mg/3 Ml) 2.5 mg INH RTQ4H PRN PRN Reason: Wheezing Albuterol/Ipratropium (Ipratropium/Albuterol 3 Ml Neb) 3 ml INH Q4HR PRN PRN Reason: Wheezing Albuterol/Ipratropium (Ipratropium/Albuterol 3 Ml Neb) 3 ml INH RTQID [facility] Last Admin: 04/13/23 20:30 Dose: 3 ml Aspirin (Aspirin Ec 81 Mg Tablet) 81 mg PO DAILY [facility] Last Admin: 04/13/23 08:22 Dose: 81 mg Budesonide (Budesonide 0.5 Mg/2 Ml Neb) 0.5 mg INH RTBID [facility] Last Admin: 04/13/23 20:30 Dose: 0.5 mg Calcium Carbonate/Glycine (Calcium Carbonate Chew 500 Mg Tablet) 500 mg PO BID [facility] Stop: 04/23/23 10:19 Last Admin: 04/13/23 21:01 Dose: 500 mg Cholecalciferol (Cholecalciferol 25 Mcg Tablet) 25 mcg PO DAILY [facility] Last Admin: 04/13/23 08:22 Dose: 25 mcg Docusate Sodium (Docusate Sodium 250 Mg Capsule) 250 - 500 mg PO DAILY [facility] Last Admin: 04/13/23 08:28 Dose: 250 mg Enoxaparin Sodium (Enoxaparin 40 Mg/0.4 Ml Syringe) 40 mg SUBQ DAILY [facility] Last Admin: 04/13/23 08:30 Dose: 40 mg Formoterol Fumarate (Formoterol Fumarate Neb 20 Mcg/2 Ml) 20 mcg INH RTBID [facility] Last Admin: 04/13/23 20:30 Dose: 20 mcg Guaifenesin (Guaifenesin 600 Mg Tablet) 600 mg PO BID [facility] Last Admin: 04/13/23 21:01 Dose: 600 mg Guaifenesin/Codeine Phosphate (Guaifenesin/Codeine 5 Ml Udc) 5 ml PO Q6HR PRN PRN Reason: Cough Last Admin: 04/13/23 17:37 Dose: 5 ml Magnesium Oxide (Magnesium Oxide 400 Mg Tablet) 400 mg PO DAILY [facility] Last Admin: 04/13/23 08:28 Dose: 400 mg Multivitamins (Multivitamin Tablet) 1 tab PO DAILYWM [facility] Last Admin: 04/13/23 08:22 Dose: 1 tab Ondansetron HCl (Ondansetron 4 Mg/2 Ml Vial) 4 mg IVP Q6HR PRN PRN Reason: Nausea / Vomiting Last Admin: 04/06/23 17:32 Dose: 4 mg Ondansetron HCl (Ondansetron Odt 4 Mg Tablet) 4 mg TL Q4HR PRN PRN Reason: Nausea / Vomiting Last Admin: 04/13/23 08:37 Dose: 4 mg Pantoprazole Sodium (Pantoprazole 40 Mg Tablet) 40 mg PO QDBREAKFAST [facility] Last Admin: 04/13/23 08:28 Dose: 40 mg Polyethylene Glycol (Polyethylene Glycol 3350 17 Gm Packet) 17 gm PO DAILY [facility] Last Admin: 04/13/23 08:29 Dose: 17 gm Prednisone (Prednisone 20 Mg Tablet) 20 mg PO DAILYWM [facility] Last Admin: 04/13/23 08:24 Dose: 20 mg Senna (Senna 8.6 Mg Tablet) 8.6 - 17.2 mg PO DAILY [facility] Last Admin: 04/13/23 08:28 Dose: 8.6 mg Sertraline HCl (Sertraline 25 Mg Tablet) 100 mg PO DAILY [facility] Last Admin: 04/13/23 08:29 Dose: 100 mg Sodium Chloride (Sodium Chloride Flush 0.9% 10 Ml Syringe) 10 ml IVP 0100,0900,1700 [facility] Last Admin: 04/13/23 17:32 Dose: 10 ml Sodium Chloride (Sodium Chloride Flush 0.9% 10 Ml Syringe) 10 ml IVP PRN PRN PRN Reason: NEEDED PER PROVIDER ORDERS Last Admin: 04/13/23 12:22 Dose: 10 ml Thiamine HCl (Thiamine 100 Mg Tablet) 100 mg PO DAILY [facility] Last Admin: 04/13/23 08:22 Dose: 100 mg Throat Lozenges (Benzocaine/Menthol Lozenge) 1 lozenge MM Q2HR PRN PRN Reason: Mouth Sore Pain Trazodone HCl (Trazodone 50 Mg Tablet) 100 mg PO HS PRN PRN Reason: Insomnia Last Admin: 04/13/23 21:03 Dose: 100 mg traZODone [Desyrel] 50 - 100 mg PO HS PRN 01/14/21 Furosemide [Lasix] 20 - 40 mg PO DAILY PRN 01/15/21 estradioL [Estrace] 2 mg PO DAILY 01/15/21 predniSONE [Deltasone] 10 mg PO DAILY 01/15/21 Tiotropium Benge [Spiriva Handihaler] 1 cap INH DAILY 08/18/21 Potassium Chloride [Klor-Con 10] 20 meq PO DAILY 08/19/21
--- NOTE | 2023-04-14 22:06 | PROVIDER PROGRESS NOTE ---
Assessment/Plan - Problem List (1) Orthostatic hypotension Assessment/Plan: Etiology of orthostatic hypotension is not clear. All of patient's blood pressure medicines have been discontinued.Consider bolus of fluid if symptoms do not improve. Patient continues to require hospitalization given his orthostatic hypotension Acute respiratory failure with hypoxia Mr. England was admitted with acute respiratory failure secondary to COPD exacerbation and pneumonia. He currently is at his baseline. During this hospitalization we attempted to qualify him for bilevel positive airway pressure therapy, unfortunately, he did not qualify. He is oxygen dependent and requires 2 to 3 L/min by nasal cannula COPD exacerbation Plan: Continue prednisone, Pulmicort and DuoNeb. Resolved. Patient currently near baseline. Community acquired Pneumonia Plan: Resolved. Patient has completed course of ceftriaxone and azithromycin. Alcohol withdrawal Resolved. Cont mvi, thiamine ivf Alcohol abuse He drinks whiskey.He was in significant alcohol withdrawal at admission. Alcohol withdrawal has resolved. Prerenal azotemia Assessment/Plan: Patient appears to be at his baseline. HTN Assessment/Plan: Losartan discontinued due to new onset of dizziness/lightheadedness upon standing.Metoprolol also discontinued. Nausea Assessment/Plan: He continues to have intermittent episodes of nausea after eating. Tobacco use As per Hx. Patient counseled to quit smoking. Hyponatremia RESOLVED Thrombocytosis RESOLVED AMS RESOLVED Patient is no longer medically cleared due to the fact that he is having episodes of lightheadedness and dizziness upon standing. During the day he continued to have episodes of near syncope. - Current Meds Current Meds: Current Medications Generic Name Dose Route Start Last Admin Trade Name Freq PRN Reason Stop Dose Admin Acetaminophen 325 mg 04/03/23 03:42 04/13/23 08:36 Acetaminophen 325 Mg Tablet PO 325 mg Q4HR PRN Administration Pain 1 to 4, or Fever Albuterol/Ipratropium 3 ml 04/03/23 07:00 04/14/23 18:55 Ipratropium/Albuterol 3 Ml Neb INH 3 ml RTQID ELISABET Administration Aspirin 81 mg 04/03/23 09:00 04/14/23 08:22 Aspirin Ec 81 Mg Tablet PO 81 mg DAILY ELIS[facility] Administration Budesonide 0.5 mg 04/03/23 19:00 04/14/23 18:55 Budesonide 0.5 Mg/2 Ml Neb INH 0.5 mg RTBID ELISABET Administration Calcium Carbonate/Glycine 500 mg 04/13/23 10:20 04/14/23 20:42 Calcium Carbonate Chew 500 Mg Tablet PO 04/23/23 10:19 500 mg BID [facility] Administration Cholecalciferol 25 mcg 04/03/23 09:00 04/14/23 08:22 Cholecalciferol 25 Mcg Tablet PO 25 mcg DAILY [facility]ISABET Administration Docusate Sodium 250 - 500 mg 04/07/23 13:00 04/14/23 08:22 Docusate Sodium 250 Mg Capsule PO 250 mg DAILY [facility] Administration Enoxaparin Sodium 40 mg 04/04/23 09:00 04/14/23 08:21 Enoxaparin 40 Mg/0.4 Ml Syringe SUBQ 40 mg DAILY [facility] Administration Formoterol Fumarate 20 mcg 04/03/23 19:00 04/14/23 18:55 Formoterol Fumarate Neb 20 Mcg/2 Ml INH 20 mcg RTBID [facility] Administration Guaifenesin 600 mg 04/03/23 09:00 04/14/23 20:42 Guaifenesin 600 Mg Tablet PO 600 mg BID [facility] Administration Guaifenesin/Codeine Phosphate 5 ml 04/07/23 19:00 04/14/23 18:01 Guaifenesin/Codeine 5 Ml Udc PO 5 ml Q6HR PRN Administration Cough Magnesium Oxide 400 mg 04/03/23 09:00 04/14/23 08:22 Magnesium Oxide 400 Mg Tablet PO 400 mg DAILY [facility] Administration Multivitamins 1 tab 04/03/23 08:00 04/14/23 08:22 Multivitamin Tablet PO 1 tab DAILYWM [facility] Administration Ondansetron HCl 4 mg 04/02/23 21:16 04/06/23 17:32 Ondansetron 4 Mg/2 Ml Vial IVP 4 mg Q6HR PRN Administration Nausea / Vomiting Ondansetron HCl 4 mg 04/08/23 15:13 04/13/23 08:37 Ondansetron Odt 4 Mg Tablet TL 4 mg Q4HR PRN Administration Nausea / Vomiting Pantoprazole Sodium 40 mg 04/05/23 08:00 04/14/23 08:22 Pantoprazole 40 Mg Tablet PO 40 mg QDBREAKFAST [facility] Administration Polyethylene Glycol 17 gm 04/07/23 13:00 04/14/23 08:21 Polyethylene Glycol 3350 17 Gm Packet PO 17 gm DAILY [facility] Administration Prednisone 20 mg 04/13/23 08:00 04/14/23 08:22 Prednisone 20 Mg Tablet PO 20 mg DAILYWM [facility] Administration Senna 8.6 - 17.2 mg 04/07/23 13:00 04/14/23 08:22 Senna 8.6 Mg Tablet PO 8.6 mg DAILY [facility] Administration Sertraline HCl 100 mg 04/04/23 12:00 04/14/23 08:22 Sertraline 25 Mg Tablet PO 100 mg DAILY [facility] Administration Sodium Chloride 10 ml 04/03/23 09:00 04/14/23 16:21 Sodium Chloride Flush 0.9% 10 Ml Syringe IVP 10 ml 0100,0900,1700 [facility] Administration Sodium Chloride 10 ml 04/03/23 03:42 04/13/23 12:22 Sodium Chloride Flush 0.9% 10 Ml Syringe IVP 10 ml PRN PRN Administration NEEDED PER PROVIDER ORDERS Thiamine HCl 100 mg 04/05/23 11:00 04/14/23 08:22 Thiamine 100 Mg Tablet PO 100 mg DAILY [facility] Administration Trazodone HCl 100 mg 04/04/23 11:52 04/13/23 21:03 Trazodone 50 Mg Tablet PO 100 mg HS PRN Administration Insomnia - Lab Result [place] Diagrams: 04/13/23 10:37 04/13/23 10:37 Subjective - Subjective Patient Reports: Other (Alert. Continues to complain of dizziness upon standing. No other complaints at this time.) Objective Vital Signs: Vital Signs - 24 hr 04/13/23 04/14/23 04/14/23 23:42 07:04 07:05 Temperature 37.0 C Heart Rate 92 Heart Rate [ 83 Brachial] Respiratory 20 20 Rate Blood Pressure [Right Brachial artery] O2 Saturation 93 If not protocol 2 2 2 : Oxygen Flow, liters/minute 04/14/23 04/14/23 04/14/23 07:41 11:09 15:18 Temperature 36.9 C Heart Rate 80 84 Heart Rate [ 83 Brachial] Respiratory 22 22 20 Rate Blood Pressure 116/62 [Right Brachial artery] O2 Saturation 94 If not protocol 2 2 2 : Oxygen Flow, liters/minute 04/14/23 04/14/23 15:42 18:55 Temperature 36.8 C Heart Rate 81 Heart Rate [ 91 Brachial] Respiratory 28 H 18 Rate Blood Pressure 128/71 [Right Brachial artery] O2 Saturation 96 If not protocol 2 2 : Oxygen Flow, liters/minute Oxygen O2 Source [With Activity] Nasal cannula O2 Source Nasal cannula Oxygen Flow Rate 2 I&O (Last 24 Hrs): Intake and Output Totals x24h 04/12/23 04/13/23 04/14/23 23:59 23:59 23:59 Intake Total 1665 2280 2856 Output Total 700 3175 2500 Balance 965 -895 356 General: Alert, Oriented x3, No acute distress HEENT: Atraumatic Neck: Supple, No JVD, No thyromegaly Neuro: Alert, Non Focal Cardiovascular: Other (Positive S1-S2 no extra heart sounds) Respiratory: Other (Fair air exchange in all lung saucedo no wheezing no crackles) Abdomen: Normal bowel sounds, Soft, No tenderness Extremities: No cyanosis, No edema Skin: No rashes - Results Results: Laboratory Results WBC 18.5 x10^3/uL (4.8-10.8) H 04/13/23 10:37 RBC 3.19 10^6/uL (4.70-6.10) L 04/13/23 10:37 Hgb 9.3 g/dL (14.0-18.0) L 04/13/23 10:37 Hct 30.5 % (42.0-52.0) L 04/13/23 10:37 MCV 95.6 fL (80.0-94.0) H 04/13/23 10:37 MCH 29.2 pg (27.0-31.0) 04/13/23 10:37 MCHC 30.5 g/dL (32.0-36.0) L 04/13/23 10:37 RDW 13.9 % (12.0-15.0) 04/13/23 10:37 Plt Count 413 10^3/uL (130-450) 04/13/23 10:37 MPV 8.5 fL (7.4-11.4) 04/13/23 10:37 Neut # (Auto) 15.4 10^3/uL (1.5-6.6) H 04/13/23 10:37 Lymph # (Auto) 0.9 10^3/uL (1.5-3.5) L 04/13/23 10:37 [place] # (Auto) 1.7 10^3/uL (0.0-1.0) H 04/13/23 10:37 Eos # (Auto) 0.3 10^3/uL (0.0-0.7) 04/13/23 10:37 Baso # (Auto) 0.0 10^3/uL (0.0-0.1) 04/13/23 10:37 Absolute Nucleated RBC 0.00 x10^3/uL 04/13/23 10:37 Total Counted 100 04/10/23 05:32 Band Neuts % (Manual) 1 % (0-10) 04/10/23 05:32 Reactive Lymphs % (Man) 3 % 04/05/23 10:25 Abnorm Lymph % (Manual) 0 % 04/10/23 05:32 Metamyelocytes % 2 % (-0) H 04/05/23 04:41 Myelocytes % 1 % (-0) H 04/05/23 10:25 Nucleated RBC % 0.0 /100WBC 04/13/23 10:37 Neutrophils # (Manual) 18.3 10^3/uL (1.5-6.6) H 04/10/23 05:32 Lymphocytes # (Manual) 1.7 10^3/uL (1.5-3.5) 04/10/23 05:32 Monocytes # (Manual) 1.5 10^3/uL (0.0-1.0) H 04/10/23 05:32 Eosinophils # (Manual) 0.0 10^3/uL (0-0.7) 04/10/23 05:32 Basophils # (Manual) 0.0 10^3/uL (0-0.1) 04/10/23 05:32 Differential Comment MANUAL DIFFERENTIAL 04/10/23 05:32 Manual Slide Review Indicated 04/13/23 10:37 Platelet Estimate NORMAL (130-450,000) (NORMAL) 04/13/23 10:37 Platelet Morphology NORMAL APPEARANCE (NORMAL) 04/13/23 10:37 RBC Morph Micro Appear 1+ STOMATOCYTES (NORMAL) 04/13/23 10:37 PT 12.1 secs (9.9-12.6) 04/04/23 04:24 INR 1.1 (0.8-1.2) 04/04/23 04:24 Bld Gas Analysis Time 0646 04/05/23 06:46 Sample Site RIGHT RADIAL 04/05/23 06:46 ABG pH 7.39 (7.35-7.45) 04/05/23 06:46 ABG pCO2 67 mmHg (34-45) H* 04/05/23 06:46 ABG pO2 135 mmHg (80-100) H 04/05/23 06:46 ABG HCO3 39.4 mmol/L (22.0-26.0) H 04/05/23 06:46 ABG Total CO2 41.5 MMOL/L (21.0-29.0) H* 04/05/23 06:46 ABG O2 Saturation 99 % (94-98) H 04/05/23 06:46 ABG Base Excess 12.2 mmol/L (-2.0-3.0) H 04/05/23 06:46 [place] Test POSITIVE 04/05/23 06:46 VBG pH 7.435 (7.31-7.41) H 04/08/23 04:30 VBG pCO2 71.7 mmHg (41-51) H 04/03/23 05:24 VBG pO2 56.5 mmHg (25-47) H 04/03/23 05:24 VBG HCO3 31.7 mmol/L (23-28) H 04/03/23 05:24 VBG Total CO2 33.9 mmol/L (24-29) H 04/03/23 05:24 VBG O2 Saturation 87.8 % (60-80) H 04/03/23 05:24 VBG Base Excess 2.8 mmol/L (-2 - +2) H 04/03/23 05:24 Ionized Calcium 1.12 mmol/L (1.15-1.33) L 04/08/23 04:30 Respiration Rate 14 b/min 04/03/23 12:20 O2 Delivery Device BiPAP 04/05/23 06:46 FiO2 40.00 04/05/23 06:46 EPAP 5 cmH2O 04/05/23 06:46 IPAP 12 cmH2O 04/05/23 06:46 Sodium 136 mmol/L (135-145) 04/13/23 10:37 Potassium 4.4 mmol/L (3.5-4.5) 04/13/23 10:37 Chloride 98 mmol/L (101-111) L 04/13/23 10:37 Carbon Dioxide 36 mmol/L (21-32) H 04/13/23 10:37 Anion Gap 2.0 (6-13) L 04/13/23 10:37 BUN 26 mg/dL (6-20) H 04/13/23 10:37 Creatinine 0.8 mg/dL (0.6-1.3) 04/13/23 10:37 Estimated GFR (MDRD) 96 (>89) 04/13/23 10:37 Glucose 110 mg/dL (74-104) H 04/13/23 10:37 Estimat Average Glucose 114 mg/dL (70-100) H 04/03/23 05:24 Hemoglobin A1c % 5.6 % (4.27-6.07) 04/03/23 05:24 Lactic Acid 0.5 mmol/L (0.5-2.2) 04/02/23 17:00 Calcium 8.5 mg/dL (8.5-10.3) 04/13/23 10:37 Phosphorus 3.7 mg/dL (2.5-5.0) 04/13/23 10:37 Magnesium 2.0 mg/dL (1.7-2.3) 04/13/23 10:37 Total Bilirubin 0.2 mg/dL (0.2-1.0) 04/04/23 04:24 AST 10 IU/L (10-42) 04/04/23 04:24 ALT 14 IU/L (10-60) 04/04/23 04:24 Alkaline Phosphatase 52 IU/L (42-121) 04/04/23 04:24 Ammonia 32.0 umol/L (18-72) 04/03/23 06:15 Lactate Dehydrogenase 112 IU/L (140-271) L 04/03/23 05:24 Troponin I High Sens 7.1 ng/L (2.3-19.7) 04/06/23 05:00 Total Protein 5.8 g/dL (6.4-8.9) L 04/04/23 04:24 Albumin 3.2 g/dL (3.2-5.5) 04/04/23 04:24 Globulin 2.6 g/dL (2.1-4.2) 04/04/23 04:24 Albumin/Globulin Ratio 1.2 (1.0-2.2) 04/04/23 04:24 Triglycerides 108 mg/dL (48-352) 04/03/23 05:24 Cholesterol 179 mg/dL (-200) 04/03/23 05:24 LDL Cholesterol, Calc 88 mg/dL (-129) 04/03/23 05:24 VLDL Cholesterol 22 mg/dL 04/03/23 05:24 HDL Cholesterol 69 mg/dL (60-) 04/03/23 05:24 LDL/HDL Ratio 1.3 (<3.6) 04/03/23 05:24 Cholesterol/HDL Ratio 2.6 (<5.0) 04/03/23 05: TSH 0.54 uIU/mL (0.34-5.60) 04/03/23 05:24 Nasal Adenovirus (PCR) NOT DETECTED 04/02/23 17:07 Nasal B. parapertussis DNA (PCR) NOT DETECTED 04/02/23 17:07 Nasal Coronavir 229E PCR NOT DETECTED 04/02/23 17:07 Nasal Coronavir HKU1 PCR NOT DETECTED 04/02/23 17:07 Nasal Coronavir NL63 PCR NOT DETECTED 04/02/23 17:07 Nasal Coronavir OC43 PCR NOT DETECTED 04/02/23 17:07 Nasal Enterovir/Rhinovir PCR NOT DETECTED 04/02/23 17:07 Nasal Influenza B PCR NOT DETECTED 04/02/23 17:07 Nasal Influenza A PCR NOT DETECTED 04/02/23 17:07 Nasal Parainfluen 1 PCR NOT DETECTED 04/02/23 17:07 Nasal Parainfluen 2 PCR NOT DETECTED 04/02/23 17:07 Nasal Parainfluen 3 PCR NOT DETECTED 04/02/23 17:07 Nasal Parainfluen 4 PCR NOT DETECTED 04/02/23 17:07 Nasal RSV (PCR) NOT DETECTED 04/02/23 17:07 Nasal Screen MRSA (PCR) NEGATIVE (NEGATIVE) 04/03/23 05:15 Nasal B.pertussis DNA PCR NOT DETECTED 04/02/23 17:07 Nasal C.pneumoniae (PCR) NOT DETECTED 04/02/23 17:07 [place] Human Metapneumo PCR NOT DETECTED 04/02/23 17:07 Nasal M.pneumoniae (PCR) NOT DETECTED 04/02/23 17:07 Nasal SARS-CoV-2 (PCR) NOT DETECTED 04/02/23 17:07 Ethyl Alcohol < 10.0 mg/dL 04/02/23 17:00 - Procedures Procedures: Procedures CATARAC PHACOEMULS/ASPIR (07/16/14) EXCISION OF ASCENDING COLON, ENDO (08/21/18) EXCISION OF DESCENDING COLON, ENDO (08/21/18) EXCISION OF SIGMOID COLON, ENDO (08/21/18) EXCISION OF TRANSVERSE COLON, ENDO (08/21/18) INSERT LENS AT CATAR EXT (07/16/14) REPLACEMENT OF RIGHT LENS WITH SYNTH SUB, PERC APPROACH (12/24/14) ABX Reporting Has patient been on IV antibiotics over the past 48 hours?: No Current Medications - Current Medications Current Medications: Active Medications Acetaminophen (Acetaminophen 325 Mg Tablet) 325 mg PO Q4HR PRN PRN Reason: Pain 1 to 4, or Fever Last Admin: 04/13/23 08:36 Dose: 325 mg Albuterol (Albuterol Neb 2.5 Mg/3 Ml) 2.5 mg INH RTQ4H PRN PRN Reason: Wheezing Albuterol/Ipratropium (Ipratropium/Albuterol 3 Ml Neb) 3 ml INH Q4HR PRN PRN Reason: Wheezing Albuterol/Ipratropium (Ipratropium/Albuterol 3 Ml Neb) 3 ml INH RTQID [facility] Last Admin: 04/14/23 18:55 Dose: 3 ml Aspirin (Aspirin Ec 81 Mg Tablet) 81 mg PO DAILY [facility] Last Admin: 04/14/23 08:22 Dose: 81 mg Budesonide (Budesonide 0.5 Mg/2 Ml Neb) 0.5 mg INH RTBID [facility] Last Admin: 04/14/23 18:55 Dose: 0.5 mg Calcium Carbonate/Glycine (Calcium Carbonate Chew 500 Mg Tablet) 500 mg PO BID [facility] Stop: 04/23/23 10:19 Last Admin: 04/14/23 20:42 Dose: 500 mg Cholecalciferol (Cholecalciferol 25 Mcg Tablet) 25 mcg PO DAILY [facility] Last Admin: 04/14/23 08:22 Dose: 25 mcg Docusate Sodium (Docusate Sodium 250 Mg Capsule) 250 - 500 mg PO DAILY [facility] Last Admin: 04/14/23 08:22 Dose: 250 mg Enoxaparin Sodium (Enoxaparin 40 Mg/0.4 Ml Syringe) 40 mg SUBQ DAILY [facility] Last Admin: 04/14/23 08:21 Dose: 40 mg Formoterol Fumarate (Formoterol Fumarate Neb 20 Mcg/2 Ml) 20 mcg INH RTBID [facility] Last Admin: 04/14/23 18:55 Dose: 20 mcg Guaifenesin (Guaifenesin 600 Mg Tablet) 600 mg PO BID [facility] Last Admin: 04/14/23 20:42 Dose: 600 mg Guaifenesin/Codeine Phosphate (Guaifenesin/Codeine 5 Ml Udc) 5 ml PO Q6HR PRN PRN Reason: Cough Last Admin: 04/14/23 18:01 Dose: 5 ml Magnesium Oxide (Magnesium Oxide 400 Mg Tablet) 400 mg PO DAILY [facility] Last Admin: 04/14/23 08:22 Dose: 400 mg Multivitamins (Multivitamin Tablet) 1 tab PO DAILYWM [facility] Last Admin: 04/14/23 08:22 Dose: 1 tab Ondansetron HCl (Ondansetron 4 Mg/2 Ml Vial) 4 mg IVP Q6HR PRN PRN Reason: Nausea / Vomiting Last Admin: 04/06/23 17:32 Dose: 4 mg Ondansetron HCl (Ondansetron Odt 4 Mg Tablet) 4 mg TL Q4HR PRN PRN Reason: Nausea / Vomiting Last Admin: 04/13/23 08:37 Dose: 4 mg Pantoprazole Sodium (Pantoprazole 40 Mg Tablet) 40 mg PO QDBREAKFAST [facility] Last Admin: 04/14/23 08:22 Dose: 40 mg Polyethylene Glycol (Polyethylene Glycol 3350 17 Gm Packet) 17 gm PO DAILY [facility] Last Admin: 04/14/23 08:21 Dose: 17 gm Prednisone (Prednisone 20 Mg Tablet) 20 mg PO DAILYWM [facility] Last Admin: 04/14/23 08:22 Dose: 20 mg Senna (Senna 8.6 Mg Tablet) 8.6 - 17.2 mg PO DAILY [facility] Last Admin: 04/14/23 08:22 Dose: 8.6 mg Sertraline HCl (Sertraline 25 Mg Tablet) 100 mg PO DAILY [facility] Last Admin: 04/14/23 08:22 Dose: 100 mg Sodium Chloride (Sodium Chloride Flush 0.9% 10 Ml Syringe) 10 ml IVP 0100,0900,1700 [facility] Last Admin: 04/14/23 16:21 Dose: 10 ml Sodium Chloride (Sodium Chloride Flush 0.9% 10 Ml Syringe) 10 ml IVP PRN PRN PRN Reason: NEEDED PER PROVIDER ORDERS Last Admin: 04/13/23 12:22 Dose: 10 ml Thiamine HCl (Thiamine 100 Mg Tablet) 100 mg PO DAILY [facility] Last Admin: 04/14/23 08:22 Dose: 100 mg Throat Lozenges (Benzocaine/Menthol Lozenge) 1 lozenge MM Q2HR PRN PRN Reason: Mouth Sore Pain Trazodone HCl (Trazodone 50 Mg Tablet) 100 mg PO HS PRN PRN Reason: Insomnia Last Admin: 04/13/23 21:03 Dose: 100 mg traZODone [Desyrel] 50 - 100 mg PO HS PRN 01/14/21 Furosemide [Lasix] 20 - 40 mg PO DAILY PRN 01/15/21 estradioL [Estrace] 2 mg PO DAILY 01/15/21 predniSONE [Deltasone] 10 mg PO DAILY 01/15/21 Tiotropium [place] [Spiriva Handihaler] 1 cap INH DAILY 08/18/21 Potassium Chloride [Klor-Con 10] 20 meq PO DAILY 08/19/21
--- NOTE | 2023-04-15 22:31 | PROVIDER PROGRESS NOTE ---
Assessment/Plan - Problem List (1) Acute respiratory failure with hypoxia Assessment/Plan: Etiology of orthostatic hypotension is not clear. All of patient's blood pressure medicines have been discontinued. Orthostatic hypotension improved with volume. Patient to undergo trial of fludrocortisone 0.1 mg daily. Patient continues to require hospitalization given his orthostatic hypotension Acute respiratory failure with hypoxia Mr. England was admitted with acute respiratory failure secondary to COPD exacerbation and pneumonia. He currently is at his baseline. During this hospitalization we attempted to qualify him for bilevel positive airway pressure therapy, unfortunately, he did not qualify. He is oxygen dependent and requires 2 to 3 L/min by nasal cannula COPD exacerbation Plan: Continue prednisone, Pulmicort and DuoNeb. Resolved. Patient currently near baseline. Community acquired Pneumonia Plan: Resolved. Patient has completed course of ceftriaxone and azithromycin. Alcohol withdrawal Resolved. Cont mvi, thiamine ivf Alcohol abuse He drinks whiskey.He was in significant alcohol withdrawal at admission. Alcohol withdrawal has resolved. Prerenal azotemia Assessment/Plan: Patient appears to be at his baseline. HTN Assessment/Plan: Losartan discontinued due to new onset of dizziness/lightheadedness upon standing.Metoprolol also discontinued. Nausea Assessment/Plan: He continues to have intermittent episodes of nausea after eating. Tobacco use As per Hx. Patient counseled to quit smoking. Hyponatremia RESOLVED Thrombocytosis RESOLVED AMS RESOLVED Patient is no longer medically cleared due to the fact that he is having episodes of lightheadedness and dizziness upon standing. During the day he con tinued to have episodes of near syncope. - Current Meds Current Meds: Current Medications Generic Name Dose Route Start Last Admin Trade Name Kenrick PRN Reason Stop Dose Admin Acetaminophen 325 mg 04/03/23 03:42 04/13/23 08:36 Acetaminophen 325 Mg Tablet PO 325 mg Q4HR PRN Administration Pain 1 to 4, or Fever Albuterol/Ipratropium 3 ml 04/03/23 07:00 04/15/23 19:35 Ipratropium/Albuterol 3 Ml Neb INH 3 ml RTQID ELISABET Administration Aspirin 81 mg 04/03/23 09:00 04/15/23 08:58 Aspirin Ec 81 Mg Tablet PO 81 mg DAILY [facility]ISABET Administration Budesonide 0.5 mg 04/03/23 19:00 04/15/23 19:35 Budesonide 0.5 Mg/2 Ml Neb INH 0.5 mg RTBID ELISABET Administration Calcium Carbonate/Glycine 500 mg 04/13/23 10:20 04/15/23 20:12 Calcium Carbonate Chew 500 Mg Tablet PO 04/23/23 10:19 500 mg BID ELISABET Administration Cholecalciferol 25 mcg 04/03/23 09:00 04/15/23 08:58 Cholecalciferol 25 Mcg Tablet PO 25 mcg DAILY [facility] Administration Docusate Sodium 250 - 500 mg 04/07/23 13:00 04/15/23 08:58 Docusate Sodium 250 Mg Capsule PO Not Given DAILY [facility] Enoxaparin Sodium 40 mg 04/04/23 09:00 04/15/23 08:58 Enoxaparin 40 Mg/0.4 Ml Syringe SUBQ 40 mg DAILY [facility] Administration Formoterol Fumarate 20 mcg 04/03/23 19:00 04/15/23 19:35 Formoterol Fumarate Neb 20 Mcg/2 Ml INH 20 mcg RTBID ELISABET Administration Guaifenesin 600 mg 04/03/23 09:00 04/15/23 20:12 Guaifenesin 600 Mg Tablet PO 600 mg BID EL[facility]ABET Administration Guaifenesin/Codeine Phosphate 5 ml 04/07/23 19:00 04/14/23 18:01 Guaifenesin/Codeine 5 Ml Udc PO 5 ml Q6HR PRN Administration Cough Magnesium Oxide 400 mg 04/03/23 09:00 04/15/23 08:58 Magnesium Oxide 400 Mg Tablet PO 400 mg DAILY ELISABET Administration Multivitamins 1 tab 04/03/23 08:00 04/15/23 08:58 Multivitamin Tablet PO 1 tab DAILYWM [facility]ISABET Administration Ondansetron HCl 4 mg 04/02/23 21:16 04/15/23 08:36 Ondansetron 4 Mg/2 Ml Vial IVP 4 mg Q6HR PRN Administration Nausea / Vomiting Ondansetron HCl 4 mg 04/08/23 15:13 04/13/23 08:37 Ondansetron Odt 4 Mg Tablet TL 4 mg Q4HR PRN Administration Nausea / Vomiting Pantoprazole Sodium 40 mg 04/05/23 08:00 04/15/23 08:58 Pantoprazole 40 Mg Tablet PO 40 mg QDBREAKFAST [facility]ABET Administration Polyethylene Glycol 17 gm 04/07/23 13:00 04/15/23 08:58 Polyethylene Glycol 3350 17 Gm Packet PO Not Given DAILY [facility] Prednisone 20 mg 04/13/23 08:00 04/15/23 08:58 Prednisone 20 Mg Tablet PO 20 mg DAILYWM [facility]ET Administration Senna 8.6 - 17.2 mg 04/07/23 13:00 04/15/23 08:59 Senna 8.6 Mg Tablet PO Not Given DAILY [facility] Sertraline HCl 100 mg 04/04/23 12:00 04/15/23 08:58 Sertraline 25 Mg Tablet PO 100 mg DAILY [facility] Administration Sodium Chloride 10 ml 04/03/23 09:00 04/15/23 20:12 Sodium Chloride Flush 0.9% 10 Ml Syringe IVP 10 ml 0100,0900,1700 [facility] Administration Sodium Chloride 10 ml 04/03/23 03:42 04/13/23 12:22 Sodium Chloride Flush 0.9% 10 Ml Syringe IVP 10 ml PRN PRN Administration NEEDED PER PROVIDER ORDERS Thiamine HCl 100 mg 04/05/23 11:00 04/15/23 08:58 Thiamine 100 Mg Tablet PO 100 mg DAILY [facility]ABET Administration Trazodone HCl 100 mg 04/04/23 11:52 04/15/23 22:04 Trazodone 50 Mg Tablet PO 100 mg HS PRN Administration Insomnia - Lab Result Fish Bone Diagrams: 04/13/23 10:37 04/13/23 10:37 - Additional Planning My Orders: My Active Orders 04/16/23 05:00 ALDOSTERONE [REFLAB] Routine RENIN ACTIVITY PLASMA [REFLAB] Routine 04/16/23 09:00 Fludrocortisone [Florinef] 0.1 mg PO DAILY Subjective - Subjective Patient Reports: Other (Mr. England denies dizziness upon standing or walking b ut does continue to have orthostatic hypotension.) Objective Vital Signs: Vital Signs - 24 hr 04/15/23 04/15/23 04/15/23 00:05 07:33 11:06 Temperature 36.8 C 36.8 C Heart Rate 80 Heart Rate [ 92 76 Brachial] Respiratory 18 20 18 Rate Blood Pressure 117/63 111/68 [Right Brachial artery] O2 Saturation 97 97 If not protocol 2 2 2 : Oxygen Flow, liters/minute 04/15/23 04/15/23 04/15/23 15:14 15:26 19:35 Temperature 37.0 C Heart Rate 84 92 Heart Rate [ 93 Brachial] Respiratory 18 18 20 Rate Blood Pressure 110/64 [Right Brachial artery] O2 Saturation 93 If not protocol 2 2 2 : Oxygen Flow, liters/minute 04/15/23 04/15/23 19:37 20:42 Temperature 37.1 C Heart Rate Heart Rate [ 101 H Brachial] Respiratory 21 Rate Blood Pressure 118/64 [Right Brachial artery] O2 Saturation 94 If not protocol 2 2 : Oxygen Flow, liters/minute Oxygen O2 Source [With Activity] Nasal cannula O2 Source Nasal cannula Oxygen Flow Rate 2 I&O (Last 24 Hrs): Intake and Output Totals x24h 04/13/23 04/14/23 04/15/23 23:59 23:59 23:59 Intake Total 2280 2856 2712 Output Total 3175 2500 2075 Balance -895 356 637 General: Alert, Oriented x3, Cooperative, No acute distress HEENT: Atraumatic Neck: Supple, No JVD, No thyromegaly Neuro: Alert, Non Focal Cardiovascular: Regular rate, Normal S1, Normal S2, No murmurs Respiratory: Other (Fair air exchange in all lung saucedo. No wheezing no crackles.) Abdomen: Normal bowel sounds, No tenderness Extremities: No cyanosis, No edema Skin: No rashes - Results Results: Laboratory Results WBC 18.5 x10^3/uL (4.8-10.8) H 04/13/23 10:37 RBC 3.19 10^6/uL (4.70-6.10) L 04/13/23 10:37 Hgb 9.3 g/dL (14.0-18.0) L 04/13/23 10:37 Hct 30.5 % (42.0-52.0) L 04/13/23 10:37 MCV 95.6 fL (80.0-94.0) H 04/13/23 10:37 MCH 29.2 pg (27.0-31.0) 04/13/23 10:37 MCHC 30.5 g/dL (32.0-36.0) L 04/13/23 10:37 RDW 13.9 % (12.0-15.0) 04/13/23 10:37 Plt Count 413 10^3/uL (130-450) 04/13/23 10:37 MPV 8.5 fL (7.4-11.4) 04/13/23 10:37 Neut # (Auto) 15.4 10^3/uL (1.5-6.6) H 04/13/23 10:37 Lymph # (Auto) 0.9 10^3/uL (1.5-3.5) L 04/13/23 10:37 Harrison # (Auto) 1.7 10^3/uL (0.0-1.0) H 04/13/23 10:37 Eos # (Auto) 0.3 10^3/uL (0.0-0.7) 04/13/23 10:37 Baso # (Auto) 0.0 10^3/uL (0.0-0.1) 04/13/23 10:37 Absolute Nucleated RBC 0.00 x10^3/uL 04/13/23 10:37 Total Counted 100 04/10/23 05:32 Band Neuts % (Manual) 1 % (0-10) 04/10/23 05:32 Reactive Lymphs % (Man) 3 % 04/05/23 10:25 Abnorm Lymph % (Manual) 0 % 04/10/23 05:32 Metamyelocytes % 2 % (-0) H 04/05/23 04:41 Myelocytes % 1 % (-0) H 04/05/23 10:25 Nucleated RBC % 0.0 /100WBC 04/13/23 10:37 Neutrophils # (Manual) 18.3 10^3/uL (1.5-6.6) H 04/10/23 05:32 Lymphocytes # (Manual) 1.7 10^3/uL (1.5-3.5) 04/10/23 05:32 Monocytes # (Manual) 1.5 10^3/uL (0.0-1.0) H 04/10/23 05:32 Eosinophils # (Manual) 0.0 10^3/uL (0-0.7) 04/10/23 05:32 Basophils # (Manual) 0.0 10^3/uL (0-0.1) 04/10/23 05:32 Differential Comment MANUAL DIFFERENTIAL 04/10/23 05:32 Manual Slide Review Indicated 04/13/23 10:37 Platelet Estimate NORMAL (130-450,000) (NORMAL) 04/13/23 10:37 Platelet Morphology NORMAL APPEARANCE (NORMAL) 04/13/23 10:37 RBC Morph Micro Appear 1+ STOMATOCYTES (NORMAL) 04/13/23 10:37 PT 12.1 secs (9.9-12.6) 04/04/23 04:24 INR 1.1 (0.8-1.2) 04/04/23 04:24 Bld Gas Analysis Time 0646 04/05/23 06:46 Sample Site RIGHT RADIAL 04/05/23 06:46 ABG pH 7.39 (7.35-7.45) 04/05/23 06:46 ABG pCO2 67 mmHg (34-45) H* 04/05/23 06:46 ABG pO2 135 mmHg (80-100) H 04/05/23 06:46 ABG HCO3 39.4 mmol/L (22.0-26.0) H 04/05/23 06:46 ABG Total CO2 41.5 MMOL/L (21.0-29.0) H* 04/05/23 06:46 ABG O2 Saturation 99 % (94-98) H 04/05/23 06:46 ABG Base Excess 12.2 mmol/L (-2.0-3.0) H 04/05/23 06:46 Ganga Test POSITIVE 04/05/23 06:46 VBG pH 7.435 (7.31-7.41) H 04/08/23 04:30 VBG pCO2 71.7 mmHg (41-51) H 04/03/23 05:24 VBG pO2 56.5 mmHg (25-47) H 04/03/23 05:24 VBG HCO3 31.7 mmol/L (23-28) H 04/03/23 05:24 VBG Total CO2 33.9 mmol/L (24-29) H 04/03/23 05:24 VBG O2 Saturation 87.8 % (60-80) H 04/03/23 05:24 VBG Base Excess 2.8 mmol/L (-2 - +2) H 04/03/23 05:24 Ionized Calcium 1.12 mmol/L (1.15-1.33) L 04/08/23 04:30 Respiration Rate 14 b/min 04/03/23 12:20 O2 Delivery Device BiPAP 04/05/23 06:46 FiO2 40.00 04/05/23 06:46 EPAP 5 cmH2O 04/05/23 06:46 IPAP 12 cmH2O 04/05/23 06:46 Sodium 136 mmol/L (135-145) 04/13/23 10:37 Potassium 4.4 mmol/L (3.5-4.5) 04/13/23 10:37 Chloride 98 mmol/L (101-111) L 04/13/23 10:37 Carbon Dioxide 36 mmol/L (21-32) H 04/13/23 10:37 Anion Gap 2.0 (6-13) L 04/13/23 10:37 BUN 26 mg/dL (6-20) H 04/13/23 10:37 Creatinine 0.8 mg/dL (0.6-1.3) 04/13/23 10:37 Estimated GFR (MDRD) 96 (>89) 04/13/23 10:37 Glucose 110 mg/dL (74-104) H 04/13/23 10:37 Estimat Average Glucose 114 mg/dL (70-100) H 04/03/23 05:24 Hemoglobin A1c % 5.6 % (4.27-6.07) 04/03/23 05:24 Lactic Acid 0.5 mmol/L (0.5-2.2) 04/02/23 17:00 Calcium 8.5 mg/dL (8.5-10.3) 04/13/23 10:37 Phosphorus 3.7 mg/dL (2.5-5.0) 04/13/23 10:37 Magnesium 2.0 mg/dL (1.7-2.3) 04/13/23 10:37 Total Bilirubin 0.2 mg/dL (0.2-1.0) 04/04/23 04:24 AST 10 IU/L (10-42) 04/04/23 04:24 ALT 14 IU/L (10-60) 04/04/23 04:24 Alkaline Phosphatase 52 IU/L (42-121) 04/04/23 04:24 Ammonia 32.0 umol/L (18-72) 04/03/23 06:15 Lactate Dehydrogenase 112 IU/L (140-271) L 04/03/23 05:24 Troponin I High Sens 7.1 ng/L (2.3-19.7) 04/06/23 05:00 Total Protein 5.8 g/dL (6.4-8.9) L 04/04/23 04:24 Albumin 3.2 g/dL (3.2-5.5) 04/04/23 04:24 Globulin 2.6 g/dL (2.1-4.2) 04/04/23 04:24 Albumin/Globulin Ratio 1.2 (1.0-2.2) 04/04/23 04:24 Triglycerides 108 mg/dL (48-352) 04/03/23 05:24 Cholesterol 179 mg/dL (-200) 04/03/23 05:24 LDL Cholesterol, Calc 88 mg/dL (-129) 04/03/23 05: VLDL Cholesterol 22 mg/dL 04/03/23 05:24 HDL Cholesterol 69 mg/dL (60-) 04/03/23 05:24 LDL/HDL Ratio 1.3 (<3.6) 04/03/23 05:24 Cholesterol/HDL Ratio 2.6 (<5.0) 04/03/23 05:24 TSH 0.54 uIU/mL (0.34-5.60) 04/03/23 05:24 Nasal Adenovirus (PCR) NOT DETECTED 04/02/23 17:07 Nasal B. parapertussis DNA (PCR) NOT DETECTED 04/02/23 17:07 Nasal Coronavir 229E PCR NOT DETECTED 04/02/23 17:07 Nasal Coronavir HKU1 PCR NOT DETECTED 04/02/23 17:07 Nasal Coronavir NL63 PCR NOT DETECTED 04/02/23 17:07 Nasal Coronavir OC43 PCR NOT DETECTED 04/02/23 17:07 Nasal Enterovir/Rhinovir PCR NOT DETECTED 04/02/23 17:07 Nasal Influenza B PCR NOT DETECTED 04/02/23 17:07 Nasal Influenza A PCR NOT DETECTED 04/02/23 17:07 Nasal Parainfluen 1 PCR NOT DETECTED 04/02/23 17:07 Nasal Parainfluen 2 PCR NOT DETECTED 04/02/23 17:07 Nasal Parainfluen 3 PCR NOT DETECTED 04/02/23 17:07 Nasal Parainfluen 4 PCR NOT DETECTED 04/02/23 17:07 Nasal RSV (PCR) NOT DETECTED 04/02/23 17:07 Nasal Screen MRSA (PCR) NEGATIVE (NEGATIVE) 04/03/23 05:15 Nasal B.pertussis DNA PCR NOT DETECTED 04/02/23 17:07 Nasal C.pneumoniae (PCR) NOT DETECTED 04/02/23 17:07 Lenin Human Metapneumo PCR NOT DETECTED 04/02/23 17:07 Nasal M.pneumoniae (PCR) NOT DETECTED 04/02/23 17:07 Nasal SARS-CoV-2 (PCR) NOT DETECTED 04/02/23 17:07 Ethyl Alcohol < 10.0 mg/dL 04/02/23 17:00 - Procedures Procedures: Procedures CATARAC PHACOEMULS/ASPIR (07/16/14) EXCISION OF ASCENDING COLON, ENDO (08/21/18) EXCISION OF DESCENDING COLON, ENDO (08/21/18) EXCISION OF SIGMOID COLON, ENDO (08/21/18) EXCISION OF TRANSVERSE COLON, ENDO (08/21/18) INSERT LENS AT CATAR EXT (07/16/14) REPLACEMENT OF RIGHT LENS WITH SYNTH SUB, PERC APPROACH (12/24/14) Current Medications - Current Medications Current Medications: Active Medications Acetaminophen (Acetaminophen 325 Mg Tablet) 325 mg PO Q4HR PRN PRN Reason: Pain 1 to 4, or Fever Last Admin: 04/13/23 08:36 Dose: 325 mg Albuterol (Albuterol Neb 2.5 Mg/3 Ml) 2.5 mg INH RTQ4H PRN PRN Reason: Wheezing Albuterol/Ipratropium (Ipratropium/Albuterol 3 Ml Neb) 3 ml INH Q4HR PRN PRN Reason: Wheezing Albuterol/Ipratropium (Ipratropium/Albuterol 3 Ml Neb) 3 ml INH RTQID [facility] Last Admin: 04/15/23 19:35 Dose: 3 ml Aspirin (Aspirin Ec 81 Mg Tablet) 81 mg PO DAILY [facility] Last Admin: 04/15/23 08:58 Dose: 81 mg Budesonide (Budesonide 0.5 Mg/2 Ml Neb) 0.5 mg INH RTBID [facility] Last Admin: 04/15/23 19:35 Dose: 0.5 mg Calcium Carbonate/Glycine (Calcium Carbonate Chew 500 Mg Tablet) 500 mg PO BID [facility] Stop: 04/23/23 10:19 Last Admin: 04/15/23 20:12 Dose: 500 mg Cholecalciferol (Cholecalciferol 25 Mcg Tablet) 25 mcg PO DAILY [facility] Last Admin: 04/15/23 08:58 Dose: 25 mcg Docusate Sodium (Docusate Sodium 250 Mg Capsule) 250 - 500 mg PO DAILY [facility] Last Admin: 04/15/23 08:58 Dose: Not Given Enoxaparin Sodium (Enoxaparin 40 Mg/0.4 Ml Syringe) 40 mg SUBQ DAILY [facility] Last Admin: 04/15/23 08:58 Dose: 40 mg Fludrocortisone Acetate (Fludrocortisone 0.1 Mg Tablet) 0.1 mg PO DAILY [facility] Formoterol Fumarate (Formoterol Fumarate Neb 20 Mcg/2 Ml) 20 mcg INH RTBID [facility] Last Admin: 04/15/23 19:35 Dose: 20 mcg Guaifenesin (Guaifenesin 600 Mg Tablet) 600 mg PO BID [facility] Last Admin: 04/15/23 20:12 Dose: 600 mg Guaifenesin/Codeine Phosphate (Guaifenesin/Codeine 5 Ml Udc) 5 ml PO Q6HR PRN PRN Reason: Cough Last Admin: 04/14/23 18:01 Dose: 5 ml Magnesium Oxide (Magnesium Oxide 400 Mg Tablet) 400 mg PO DAILY [facility] Last Admin: 04/15/23 08:58 Dose: 400 mg Multivitamins (Multivitamin Tablet) 1 tab PO DAILYWM [facility] Last Admin: 04/15/23 08:58 Dose: 1 tab Ondansetron HCl (Ondansetron 4 Mg/2 Ml Vial) 4 mg IVP Q6HR PRN PRN Reason: Nausea / Vomiting Last Admin: 04/15/23 08:36 Dose: 4 mg Ondansetron HCl (Ondansetron Odt 4 Mg Tablet) 4 mg TL Q4HR PRN PRN Reason: Nausea / Vomiting Last Admin: 04/13/23 08:37 Dose: 4 mg Pantoprazole Sodium (Pantoprazole 40 Mg Tablet) 40 mg PO QDBREAKFAST [facility] Last Admin: 04/15/23 08:58 Dose: 40 mg Polyethylene Glycol (Polyethylene Glycol 3350 17 Gm Packet) 17 gm PO DAILY [facility] Last Admin: 04/15/23 08:58 Dose: Not Given Prednisone (Prednisone 20 Mg Tablet) 20 mg PO DAILYWM [facility] Last Admin: 04/15/23 08:58 Dose: 20 mg Senna (Senna 8.6 Mg Tablet) 8.6 - 17.2 mg PO DAILY [facility] Last Admin: 04/15/23 08:59 Dose: Not Given Sertraline HCl (Sertraline 25 Mg Tablet) 100 mg PO DAILY [facility] Last Admin: 04/15/23 08:58 Dose: 100 mg Sodium Chloride (Sodium Chloride Flush 0.9% 10 Ml Syringe) 10 ml IVP 0100,0900,1700 [facility] Last Admin: 04/15/23 20:12 Dose: 10 ml Sodium Chloride (Sodium Chloride Flush 0.9% 10 Ml Syringe) 10 ml IVP PRN PRN PRN Reason: NEEDED PER PROVIDER ORDERS Last Admin: 04/13/23 12:22 Dose: 10 ml Thiamine HCl (Thiamine 100 Mg Tablet) 100 mg PO DAILY [facility] Last Admin: 04/15/23 08:58 Dose: 100 mg Throat Lozenges (Benzocaine/Menthol Lozenge) 1 lozenge MM Q2HR PRN PRN Reason: Mouth Sore Pain Trazodone HCl (Trazodone 50 Mg Tablet) 100 mg PO HS PRN PRN Reason: Insomnia Last Admin: 04/15/23 22:04 Dose: 100 mg traZODone [Desyrel] 50 - 100 mg PO HS PRN 01/14/21 Furosemide [Lasix] 20 - 40 mg PO DAILY PRN 01/15/21 estradioL [Estrace] 2 mg PO DAILY 01/15/21 predniSONE [Deltasone] 10 mg PO DAILY 01/15/21 Tiotropium [place] [Spiriva Handihaler] 1 cap INH DAILY 08/18/21 Potassium Chloride [Klor-Con 10] 20 meq PO DAILY 08/19/21
[2023-04-16] MEDS: FLUDROCORTISONE 0.1 MG TABLET PO SCH (09:06)
[2023-04-16] MEDS: IPRATROPIUM/ALBUTEROL 3 ML NEB INH SCH (16:02)
--- NOTE | 2023-04-16 22:38 | PROVIDER PROGRESS NOTE ---
Assessment/Plan - Problem List (1) Acute respiratory failure with hypoxia Assessment/Plan: Etiology of orthostatic hypotension is not clear. All of patient's blood pressure medicines have been discontinued. Orthostatic hypotension appears to have improved with fludroortisone. Continue to monitor. Patient continues to require hospitalization given his orthostatic hypotension Acute respiratory failure with hypoxia Mr. England was admitted with acute respiratory failure secondary to COPD exacerbation and pneumonia. He currently is at his baseline. During this hospitalization we attempted to qualify him for bilevel positive airway pressure therapy, unfortunately, he did not qualify. He is oxygen dependent and requires 2 to 3 L/min by nasal cannula COPD exacerbation Plan: Continue prednisone, Pulmicort and DuoNeb. Resolved. Patient currently near baseline. Community acquired Pneumonia Plan: Resolved. Patient has completed course of ceftriaxone and azithromycin. Alcohol withdrawal Resolved. Cont mvi, thiamine ivf Alcohol abuse He drinks whiskey.He was in significant alcohol withdrawal at admission. Alcohol withdrawal has resolved. Prerenal azotemia Assessment/Plan: Patient appears to be at his baseline. HTN Assessment/Plan: Losartan discontinued due to new onset of dizziness/lightheadedness upon standing.Metoprolol also discontinued. Nausea Assessment/Plan: He continues to have intermittent episodes of nausea after eating. Tobacco use As per Hx. Patient counseled to quit smoking. Hyponatremia RESOLVED Thrombocytosis RESOLVED AMS RESOLVED Patient is no longer medically cleared due to the fact that he is having episodes of lightheadedness and dizziness upon standing. During the day he continued to have episodes of near syncope. - Current Meds Current Meds: Current Medications Generic Name Dose Route Start Last Admin Trade Name Freq PRN Reason Stop Dose Admin Acetaminophen 325 mg 04/03/23 03:42 04/16/23 06:43 Acetaminophen 325 Mg Tablet PO 325 mg Q4HR PRN Administration Pain 1 to 4, or Fever Albuterol/Ipratropium 3 ml 04/03/23 07:00 04/16/23 19:02 Ipratropium/Albuterol 3 Ml Neb INH 3 ml RTQID ELISABET Administration Aspirin 81 mg 04/03/23 09:00 04/16/23 09:07 Aspirin Ec 81 Mg Tablet PO 81 mg DAILY ELISABET Administration Budesonide 0.5 mg 04/03/23 19:00 04/16/23 19:02 Budesonide 0.5 Mg/2 Ml Neb INH 0.5 mg RTBID ELISABET Administration Calcium Carbonate/Glycine 500 mg 04/13/23 10:20 04/16/23 20:34 Calcium Carbonate Chew 500 Mg Tablet PO 04/23/23 10:19 500 mg BID ELISABET Administration Cholecalciferol 25 mcg 04/03/23 09:00 04/16/23 09:07 Cholecalciferol 25 Mcg Tablet PO 25 mcg DAILY [facility] Administration Docusate Sodium 250 - 500 mg 04/07/23 13:00 04/16/23 09:07 Docusate Sodium 250 Mg Capsule PO 250 mg DAILY [facility] Administration Enoxaparin Sodium 40 mg 04/04/23 09:00 04/16/23 09:07 Enoxaparin 40 Mg/0.4 Ml Syringe SUBQ 40 mg DAILY [facility] Administration Fludrocortisone Acetate 0.1 mg 04/16/23 09:00 04/16/23 09:06 Fludrocortisone 0.1 Mg Tablet PO 0.1 mg DAILY [facility] Administration Formoterol Fumarate 20 mcg 04/03/23 19:00 04/16/23 19:02 Formoterol Fumarate Neb 20 Mcg/2 Ml INH 20 mcg RTBID ELISABET Administration Guaifenesin 600 mg 04/03/23 09:00 04/16/23 20:34 Guaifenesin 600 Mg Tablet PO 600 mg BID ELISABET Administration Guaifenesin/Codeine Phosphate 5 ml 04/07/23 19:00 04/14/23 18:01 Guaifenesin/Codeine 5 Ml Udc PO 5 ml Q6HR PRN Administration Cough Magnesium Oxide 400 mg 04/03/23 09:00 04/16/23 09:06 Magnesium Oxide 400 Mg Tablet PO 400 mg DAILY ELISABET Administration Multivitamins 1 tab 04/03/23 08:00 04/16/23 09:06 Multivitamin Tablet PO 1 tab DAILYWM [facility] Administration Ondansetron HCl 4 mg 04/02/23 21:16 04/15/23 08:36 Ondansetron 4 Mg/2 Ml Vial IVP 4 mg Q6HR PRN Administration Nausea / Vomiting Ondansetron HCl 4 mg 04/08/23 15:13 04/13/23 08:37 Ondansetron Odt 4 Mg Tablet TL 4 mg Q4HR PRN Administration Nausea / Vomiting Pantoprazole Sodium 40 mg 04/05/23 08:00 04/16/23 09:07 Pantoprazole 40 Mg Tablet PO 40 mg QDBREAKFAST ELISABET Administration Polyethylene Glycol 17 gm 04/07/23 13:00 04/16/23 09:07 Polyethylene Glycol 3350 17 Gm Packet PO 17 gm DAILY ELISABET Administration Prednisone 20 mg 04/13/23 08:00 04/16/23 09:06 Prednisone 20 Mg Tablet PO 20 mg DAILYWM ELISABET Administration Senna 8.6 - 17.2 mg 04/07/23 13:00 04/16/23 09:07 Senna 8.6 Mg Tablet PO 8.6 mg DAILY ELISABET Administration Sertraline HCl 100 mg 04/04/23 12:00 04/16/23 09:06 Sertraline 25 Mg Tablet PO 100 mg DAILY ELISABET Administration Sodium Chloride 10 ml 04/03/23 09:00 04/16/23 16:58 Sodium Chloride Flush 0.9% 10 Ml Syringe IVP 10 ml 0100,0900,1700 [facility]ET Administration Sodium Chloride 10 ml 04/03/23 03:42 04/13/23 12:22 Sodium Chloride Flush 0.9% 10 Ml Syringe IVP 10 ml PRN PRN Administration NEEDED PER PROVIDER ORDERS Thiamine HCl 100 mg 04/05/23 11:00 04/16/23 09:06 Thiamine 100 Mg Tablet PO 100 mg DAILY ELISABET Administration Trazodone HCl 100 mg 04/04/23 11:52 04/16/23 22:05 Trazodone 50 Mg Tablet PO 100 mg HS PRN Administration Insomnia - Lab Result Fish Bone Diagrams: 04/13/23 10:37 04/13/23 10:37 - Additional Planning My Orders: My Active Orders 04/16/23 04:59 ALDOSTERONE [REFLAB] Routine RENIN ACTIVITY PLASMA [REFLAB] Routine 04/16/23 09:00 Fludrocortisone [Florinef] 0.1 mg PO DAILY Subjective - Subjective Patient Reports: Other (Alert. No complaints today. He states he no longer has difficulty upon standing.) Objective Vital Signs: Vital Signs - 24 hr 04/16/23 04/16/23 04/16/23 00:15 07:09 09:43 Temperature 37.1 C 37 C Heart Rate 77 Heart Rate [ 92 94 Brachial] Respiratory 16 16 20 Rate Blood Pressure 128/72 110/62 [Right Brachial artery] O2 Saturation 96 96 If not protocol 2 2 2 : Oxygen Flow, liters/minute 04/16/23 04/16/23 16:01 19:00 Temperature 37.0 C Heart Rate 92 Heart Rate [ 80 Brachial] Respiratory 20 20 Rate Blood Pressure 126/67 [Right Brachial artery] O2 Saturation 95 If not protocol 2 2 : Oxygen Flow, liters/minute Oxygen O2 Source [With Activity] Nasal cannula O2 Source Nasal cannula Oxygen Flow Rate 2 I&O (Last 24 Hrs): Intake and Output Totals x24h 04/14/23 04/15/23 04/16/23 23:59 23:59 23:59 Intake Total 2856 2712 2116 Output Total 2500 2075 2195 Balance 356 637 -79 General: Alert, Oriented x3, No acute distress HEENT: Atraumatic Neck: Supple, No JVD, No thyromegaly Neuro: Alert, Non Focal Cardiovascular: Regular rate, Normal S1, Normal S2, No murmurs Respiratory: Other (Fair air exchange in all lung saucedo no wheezing no crackles.) Abdomen: Normal bowel sounds, Soft, No tenderness Extremities: No clubbing, No cyanosis, No edema Skin: No rashes - Results Results: Laboratory Results WBC 18.5 x10^3/uL (4.8-10.8) H 04/13/23 10:37 RBC 3.19 10^6/uL (4.70-6.10) L 04/13/23 10:37 Hgb 9.3 g/dL (14.0-18.0) L 04/13/23 10:37 Hct 30.5 % (42.0-52.0) L 04/13/23 10:37 MCV 95.6 fL (80.0-94.0) H 04/13/23 10:37 MCH 29.2 pg (27.0-31.0) 04/13/23 10:37 MCHC 30.5 g/dL (32.0-36.0) L 04/13/23 10:37 RDW 13.9 % (12.0-15.0) 04/13/23 10:37 Plt Count 413 10^3/uL (130-450) 04/13/23 10:37 MPV 8.5 fL (7.4-11.4) 04/13/23 10:37 Neut # (Auto) 15.4 10^3/uL (1.5-6.6) H 04/13/23 10:37 Lymph # (Auto) 0.9 10^3/uL (1.5-3.5) L 04/13/23 10:37 [place] # (Auto) 1.7 10^3/uL (0.0-1.0) H 04/13/23 10:37 Eos # (Auto) 0.3 10^3/uL (0.0-0.7) 04/13/23 10:37 Baso # (Auto) 0.0 10^3/uL (0.0-0.1) 04/13/23 10:37 Absolute Nucleated RBC 0.00 x10^3/uL 04/13/23 10:37 Total Counted 100 04/10/23 05:32 Band Neuts % (Manual) 1 % (0-10) 04/10/23 05:32 Reactive Lymphs % (Man) 3 % 04/05/23 10:25 Abnorm Lymph % (Manual) 0 % 04/10/23 05:32 Metamyelocytes % 2 % (-0) H 04/05/23 04:41 Myelocytes % 1 % (-0) H 04/05/23 10:25 Nucleated RBC % 0.0 /100WBC 04/13/23 10:37 Neutrophils # (Manual) 18.3 10^3/uL (1.5-6.6) H 04/10/23 05:32 Lymphocytes # (Manual) 1.7 10^3/uL (1.5-3.5) 04/10/23 05:32 Monocytes # (Manual) 1.5 10^3/uL (0.0-1.0) H 04/10/23 05:32 Eosinophils # (Manual) 0.0 10^3/uL (0-0.7) 04/10/23 05:32 Basophils # (Manual) 0.0 10^3/uL (0-0.1) 04/10/23 05:32 Differential Comment MANUAL DIFFERENTIAL 04/10/23 05:32 Manual Slide Review Indicated 04/13/23 10:37 Platelet Estimate NORMAL (130-450,000) (NORMAL) 04/13/23 10:37 Platelet Morphology NORMAL APPEARANCE (NORMAL) 04/13/23 10:37 RBC Morph Micro Appear 1+ STOMATOCYTES (NORMAL) 04/13/23 10:37 PT 12.1 secs (9.9-12.6) 04/04/23 04:24 INR 1.1 (0.8-1.2) 04/04/23 04:24 Bld Gas Analysis Time 0646 04/05/23 06:46 Sample Site RIGHT RADIAL 04/05/23 06:46 ABG pH 7.39 (7.35-7.45) 04/05/23 06:46 ABG pCO2 67 mmHg (34-45) H* 04/05/23 06:46 ABG pO2 135 mmHg (80-100) H 04/05/23 06:46 ABG HCO3 39.4 mmol/L (22.0-26.0) H 04/05/23 06:46 ABG Total CO2 41.5 MMOL/L (21.0-29.0) H* 04/05/23 06:46 ABG O2 Saturation 99 % (94-98) H 04/05/23 06:46 ABG Base Excess 12.2 mmol/L (-2.0-3.0) H 04/05/23 06:46 Ganga Test POSITIVE 04/05/23 06:46 VBG pH 7.435 (7.31-7.41) H 04/08/23 04:30 VBG pCO2 71.7 mmHg (41-51) H 04/03/23 05:24 VBG pO2 56.5 mmHg (25-47) H 04/03/23 05:24 VBG HCO3 31.7 mmol/L (23-28) H 04/03/23 05:24 VBG Total CO2 33.9 mmol/L (24-29) H 04/03/23 05:24 VBG O2 Saturation 87.8 % (60-80) H 04/03/23 05:24 VBG Base Excess 2.8 mmol/L (-2 - +2) H 04/03/23 05:24 Ionized Calcium 1.12 mmol/L (1.15-1.33) L 04/08/23 04:30 Respiration Rate 14 b/min 04/03/23 12:20 O2 Delivery Device BiPAP 04/05/23 06:46 FiO2 40.00 04/05/23 06:46 EPAP 5 cmH2O 04/05/23 06:46 IPAP 12 cmH2O 04/05/23 06:46 Sodium 136 mmol/L (135-145) 04/13/23 10:37 Potassium 4.4 mmol/L (3.5-4.5) 04/13/23 10:37 Chloride 98 mmol/L (101-111) L 04/13/23 10:37 Carbon Dioxide 36 mmol/L (21-32) H 04/13/23 10:37 Anion Gap 2.0 (6-13) L 04/13/23 10:37 BUN 26 mg/dL (6-20) H 04/13/23 10:37 Creatinine 0.8 mg/dL (0.6-1.3) 04/13/23 10:37 Estimated GFR (MDRD) 96 (>89) 04/13/23 10:37 Glucose 110 mg/dL (74-104) H 04/13/23 10:37 Estimat Average Glucose 114 mg/dL (70-100) H 04/03/23 05:24 Hemoglobin A1c % 5.6 % (4.27-6.07) 04/03/23 05:24 Lactic Acid 0.5 mmol/L (0.5-2.2) 04/02/23 17:00 Calcium 8.5 mg/dL (8.5-10.3) 04/13/23 10:37 Phosphorus 3.7 mg/dL (2.5-5.0) 04/13/23 10:37 Magnesium 2.0 mg/dL (1.7-2.3) 04/13/23 10:37 Total Bilirubin 0.2 mg/dL (0.2-1.0) 04/04/23 04:24 AST 10 IU/L (10-42) 04/04/23 04:24 ALT 14 IU/L (10-60) 04/04/23 04:24 Alkaline Phosphatase 52 IU/L (42-121) 04/04/23 04:24 Ammonia 32.0 umol/L (18-72) 04/03/23 06:15 Lactate Dehydrogenase 112 IU/L (140-271) L 04/03/23 05:24 Troponin I High Sens 7.1 ng/L (2.3-19.7) 04/06/23 05:00 Total Protein 5.8 g/dL (6.4-8.9) L 04/04/23 04:24 Albumin 3.2 g/dL (3.2-5.5) 04/04/23 04:24 Globulin 2.6 g/dL (2.1-4.2) 04/04/23 04:24 Albumin/Globulin Ratio 1.2 (1.0-2.2) 04/04/23 04:24 Triglycerides 108 mg/dL (48-352) 04/03/23 05:24 Cholesterol 179 mg/dL (-200) 04/03/23 05:24 LDL Cholesterol, Calc 88 mg/dL (-129) 04/03/23 05:24 VLDL Cholesterol 22 mg/dL 04/03/23 05:24 HDL Cholesterol 69 mg/dL (60-) 04/03/23 05:24 LDL/HDL Ratio 1.3 (<3.6) 04/03/23 05:24 Cholesterol/HDL Ratio 2.6 (<5.0) 04/03/23 05:24 TSH 0.54 uIU/mL (0.34-5.60) 04/03/23 05:24 Nasal Adenovirus (PCR) NOT DETECTED 04/02/23 17:07 Nasal B. parapertussis DNA (PCR) NOT DETECTED 04/02/23 17:07 Nasal Coronavir 229E PCR NOT DETECTED 04/02/23 17:07 Nasal Coronavir HKU1 PCR NOT DETECTED 04/02/23 17:07 Nasal Coronavir NL63 PCR NOT DETECTED 04/02/23 17:07 Nasal Coronavir OC43 PCR NOT DETECTED 04/02/23 17:07 Nasal Enterovir/Rhinovir PCR NOT DETECTED 04/02/23 17:07 Nasal Influenza B PCR NOT DETECTED 04/02/23 17:07 Nasal Influenza A PCR NOT DETECTED 04/02/23 17:07 Nasal Parainfluen 1 PCR NOT DETECTED 04/02/23 17:07 Nasal Parainfluen 2 PCR NOT DETECTED 04/02/23 17:07 Nasal Parainfluen 3 PCR NOT DETECTED 04/02/23 17:07 Nasal Parainfluen 4 PCR NOT DETECTED 04/02/23 17:07 Nasal RSV (PCR) NOT DETECTED 04/02/23 17:07 Nasal Screen MRSA (PCR) NEGATIVE (NEGATIVE) 04/03/23 05:15 Nasal B.pertussis DNA PCR NOT DETECTED 04/02/23 17:07 Nasal C.pneumoniae (PCR) NOT DETECTED 04/02/23 17:07 [place] Human Metapneumo PCR NOT DETECTED 04/02/23 17:07 Nasal M.pneumoniae (PCR) NOT DETECTED 04/02/23 17:07 Nasal SARS-CoV-2 (PCR) NOT DETECTED 04/02/23 17:07 Ethyl Alcohol < 10.0 mg/dL 04/02/23 17:00 - Procedures Procedures: Procedures CATARAC PHACOEMULS/ASPIR (07/16/14) EXCISION OF ASCENDING COLON, ENDO (08/21/18) EXCISION OF DESCENDING COLON, ENDO (08/21/18) EXCISION OF SIGMOID COLON, ENDO (08/21/18) EXCISION OF TRANSVERSE COLON, ENDO (08/21/18) INSERT LENS AT CATAR EXT (07/16/14) REPLACEMENT OF RIGHT LENS WITH SYNTH SUB, PERC APPROACH (12/24/14) Current Medications - Current Medications Current Medications: Active Medications Acetaminophen (Acetaminophen 325 Mg Tablet) 325 mg PO Q4HR PRN PRN Reason: Pain 1 to 4, or Fever Last Admin: 04/16/23 06:43 Dose: 325 mg Albuterol (Albuterol Neb 2.5 Mg/3 Ml) 2.5 mg INH RTQ4H PRN PRN Reason: Wheezing Albuterol/Ipratropium (Ipratropium/Albuterol 3 Ml Neb) 3 ml INH RTQID [facility] Last Admin: 04/16/23 19:02 Dose: 3 ml Aspirin (Aspirin Ec 81 Mg Tablet) 81 mg PO DAILY [facility] Last Admin: 04/16/23 09:07 Dose: 81 mg Budesonide (Budesonide 0.5 Mg/2 Ml Neb) 0.5 mg INH RTBID [facility] Last Admin: 04/16/23 19:02 Dose: 0.5 mg Calcium Carbonate/Glycine (Calcium Carbonate Chew 500 Mg Tablet) 500 mg PO BID [facility] Stop: 04/23/23 10:19 Last Admin: 04/16/23 20:34 Dose: 500 mg Cholecalciferol (Cholecalciferol 25 Mcg Tablet) 25 mcg PO DAILY [facility] Last Admin: 04/16/23 09:07 Dose: 25 mcg Docusate Sodium (Docusate Sodium 250 Mg Capsule) 250 - 500 mg PO DAILY [facility] Last Admin: 04/16/23 09:07 Dose: 250 mg Enoxaparin Sodium (Enoxaparin 40 Mg/0.4 Ml Syringe) 40 mg SUBQ DAILY [facility] Last Admin: 04/16/23 09:07 Dose: 40 mg Fludrocortisone Acetate (Fludrocortisone 0.1 Mg Tablet) 0.1 mg PO DAILY [facility] Last Admin: 04/16/23 09:06 Dose: 0.1 mg Formoterol Fumarate (Formoterol Fumarate Neb 20 Mcg/2 Ml) 20 mcg INH RTBID [facility] Last Admin: 04/16/23 19:02 Dose: 20 mcg Guaifenesin (Guaifenesin 600 Mg Tablet) 600 mg PO BID [facility] Last Admin: 04/16/23 20:34 Dose: 600 mg Guaifenesin/Codeine Phosphate (Guaifenesin/Codeine 5 Ml Udc) 5 ml PO Q6HR PRN PRN Reason: Cough Last Admin: 04/14/23 18:01 Dose: 5 ml Magnesium Oxide (Magnesium Oxide 400 Mg Tablet) 400 mg PO DAILY [facility] Last Admin: 04/16/23 09:06 Dose: 400 mg Multivitamins (Multivitamin Tablet) 1 tab PO DAILYWM [facility] Last Admin: 04/16/23 09:06 Dose: 1 tab Ondansetron HCl (Ondansetron 4 Mg/2 Ml Vial) 4 mg IVP Q6HR PRN PRN Reason: Nausea / Vomiting Last Admin: 04/15/23 08:36 Dose: 4 mg Ondansetron HCl (Ondansetron Odt 4 Mg Tablet) 4 mg TL Q4HR PRN PRN Reason: Nausea / Vomiting Last Admin: 04/13/23 08:37 Dose: 4 mg Pantoprazole Sodium (Pantoprazole 40 Mg Tablet) 40 mg PO QDBREAKFAST [facility] Last Admin: 04/16/23 09:07 Dose: 40 mg Polyethylene Glycol (Polyethylene Glycol 3350 17 Gm Packet) 17 gm PO DAILY [facility] Last Admin: 04/16/23 09:07 Dose: 17 gm Prednisone (Prednisone 20 Mg Tablet) 20 mg PO DAILYWM [facility] Last Admin: 04/16/23 09:06 Dose: 20 mg Senna (Senna 8.6 Mg Tablet) 8.6 - 17.2 mg PO DAILY [facility] Last Admin: 04/16/23 09:07 Dose: 8.6 mg Sertraline HCl (Sertraline 25 Mg Tablet) 100 mg PO DAILY [facility] Last Admin: 04/16/23 09:06 Dose: 100 mg Sodium Chloride (Sodium Chloride Flush 0.9% 10 Ml Syringe) 10 ml IVP 0100,0900,1700 [facility] Last Admin: 04/16/23 16:58 Dose: 10 ml Sodium Chloride (Sodium Chloride Flush 0.9% 10 Ml Syringe) 10 ml IVP PRN PRN PRN Reason: NEEDED PER PROVIDER ORDERS Last Admin: 04/13/23 12:22 Dose: 10 ml Thiamine HCl (Thiamine 100 Mg Tablet) 100 mg PO DAILY [facility] Last Admin: 04/16/23 09:06 Dose: 100 mg Throat Lozenges (Benzocaine/Menthol Lozenge) 1 lozenge MM Q2HR PRN PRN Reason: Mouth Sore Pain Trazodone HCl (Trazodone 50 Mg Tablet) 100 mg PO HS PRN PRN Reason: Insomnia Last Admin: 04/16/23 22:05 Dose: 100 mg traZODone [Desyrel] 50 - 100 mg PO HS PRN 01/14/21 Furosemide [Lasix] 20 - 40 mg PO DAILY PRN 01/15/21 estradioL [Estrace] 2 mg PO DAILY 01/15/21 predniSONE [Deltasone] 10 mg PO DAILY 01/15/21 Tiotropium [place] [Spiriva Handihaler] 1 cap INH DAILY 08/18/21 Potassium Chloride [Klor-Con 10] 20 meq PO DAILY 08/19/21
--- NOTE | 2023-04-17 19:10 | PROVIDER PROGRESS NOTE ---
Assessment/Plan - Problem List (1) Orthostatic hypotension Assessment/Plan: He is still not medically cleared due to the fact that he is having orthostatic hypotension. All of patient's blood pressure medicines have been discontinued. He was started on daily Flurinef 0.1 mg daily Renon level and aldosterone level were sent off, these are send out labs and are still pending Plan: Continue to monitor orthostatic VS Cont Flurinef Will add Midodrine Patient continues to require hospitalization given his orthostatic hypotension (2) Acute respiratory failure with hypoxia Assessment/Plan: Mr. England was admitted with acute respiratory failure secondary to COPD ex acerbation and pneumonia. He currently is at his baseline. During this hospitalization we attempted to qualify him for bilevel positive airway pressure therapy, unfortunately, he did not qualify. Plan: He is oxygen dependent and requires continuous 2 to 3 L/min by nasal cannula (3) COPD exacerbation Patient currently near baseline. Plan: Continue prednisone at 20 mg daily, Pulmicort kathy BID, and DuoNeb prn (4) Community acquired Pneumonia Resolved. Patient has completed course of ceftriaxone and azithromycin. (5) Alcohol withdrawal As per Hx. Withdrawal has resolved Cont mvi, thiamine (6) Alcohol abuse He drinks whiskey. He was in significant alcohol withdrawal at admission. Alcohol withdrawal has resolved. (7) Prerenal azotemia Resolved. Patient appears to be at his baseline with BUN/creat. (8) Hx HTN Assessment/Plan: Losartan discontinued due to new onset of dizziness/lightheadedness and documented orthostasis upon standing. Metoprolol also discontinued. (9) Nausea Assessment/Plan: He continues to have intermittent episodes of nausea after eating. He has had that for years (10) Tobacco use As per Hx. Plan: Nicotone patch prn Patient counseled to quit smoking. (11) Hyponatremia RESOLVED (12) Thrombocytosis RESOLVED (13) AMS RESOLVED - Current Meds Current Meds: Current Medications Generic Name Dose Route Start Last Admin Trade Name Freq PRN Reason Stop Dose Admin Acetaminophen 325 mg 04/03/23 03:42 04/17/23 16:05 Acetaminophen 325 Mg Tablet PO 325 mg Q4HR PRN Administration Pain 1 to 4, or Fever Aspirin 81 mg 04/03/23 09:00 04/17/23 09:18 Aspirin Ec 81 Mg Tablet PO 81 mg DAILY KATHY Administration Budesonide 0.5 mg 04/03/23 19:00 04/17/23 08:57 Budesonide 0.5 Mg/2 Ml Neb INH Not Given RTBID [facility] Calcium Carbonate/Glycine 500 mg 04/13/23 10:20 04/17/23 09:17 Calcium Carbonate Chew 500 Mg Tablet PO 04/23/23 10:19 500 mg BID KATHY Administration Cholecalciferol 25 mcg 04/03/23 09:00 04/17/23 09:17 Cholecalciferol 25 Mcg Tablet PO 25 mcg DAILY [facility] Administration Docusate Sodium 250 - 500 mg 04/07/23 13:00 04/17/23 09:16 Docusate Sodium 250 Mg Capsule PO 250 mg DAILY [facility] Administration Enoxaparin Sodium 40 mg 04/04/23 09:00 04/17/23 09:18 Enoxaparin 40 Mg/0.4 Ml Syringe SUBQ 40 mg DAILY [facility] Administration Fludrocortisone Acetate 0.1 mg 04/16/23 09:00 04/17/23 09:17 Fludrocortisone 0.1 Mg Tablet PO 0.1 mg DAILY [facility] Administration Formoterol Fumarate 20 mcg 04/03/23 19:00 04/17/23 08:57 Formoterol Fumarate Neb 20 Mcg/2 Ml INH Not Given RTBID [facility] Guaifenesin 600 mg 04/03/23 09:00 04/17/23 09:17 Guaifenesin 600 Mg Tablet PO 600 mg BID [facility] Administration Guaifenesin/Codeine Phosphate 5 ml 04/07/23 19:00 04/14/23 18:01 Guaifenesin/Codeine 5 Ml Udc PO 5 ml Q6HR PRN Administration Cough Magnesium Oxide 400 mg 04/03/23 09:00 04/17/23 09:16 Magnesium Oxide 400 Mg Tablet PO 400 mg DAILY [facility] Administration Multivitamins 1 tab 04/03/23 08:00 04/17/23 09:16 Multivitamin Tablet PO 1 tab DAILYWM [facility] Administration Ondansetron HCl 4 mg 04/02/23 21:16 04/15/23 08:36 Ondansetron 4 Mg/2 Ml Vial IVP 4 mg Q6HR PRN Administration Nausea / Vomiting Ondansetron HCl 4 mg 04/08/23 15:13 04/13/23 08:37 Ondansetron Odt 4 Mg Tablet TL 4 mg Q4HR PRN Administration Nausea / Vomiting Pantoprazole Sodium 40 mg 04/05/23 08:00 04/17/23 09:22 Pantoprazole 40 Mg Tablet PO 40 mg QDBREAKFAST KATHY Administration Polyethylene Glycol 17 gm 04/07/23 13:00 04/17/23 09:17 Polyethylene Glycol 3350 17 Gm Packet PO 17 gm DAILY KATHY Administration Prednisone 20 mg 04/13/23 08:00 04/17/23 09:17 Prednisone 20 Mg Tablet PO 20 mg DAILYWM KATHY Administration Senna 8.6 - 17.2 mg 04/07/23 13:00 04/17/23 09:17 Senna 8.6 Mg Tablet PO 8.6 mg DAILY KATHY Administration Sertraline HCl 100 mg 04/04/23 12:00 04/17/23 09:17 Sertraline 25 Mg Tablet PO 100 mg DAILY KATHY Administration Sodium Chloride 10 ml 04/03/23 09:00 04/17/23 16:05 Sodium Chloride Flush 0.9% 10 Ml Syringe IVP 10 ml 0100,0900,1700 KATHY Administration Sodium Chloride 10 ml 04/03/23 03:42 04/13/23 12:22 Sodium Chloride Flush 0.9% 10 Ml Syringe IVP 10 ml PRN PRN Administration NEEDED PER PROVIDER ORDERS Thiamine HCl 100 mg 04/05/23 11:00 04/17/23 09:17 Thiamine 100 Mg Tablet PO 100 mg DAILY KATHY Administration Trazodone HCl 100 mg 04/04/23 11:52 04/16/23 22:05 Trazodone 50 Mg Tablet PO 100 mg HS PRN Administration Insomnia - Lab Result Fish Bone Diagrams: 04/13/23 10:37 04/13/23 10:37 - Additional Planning My Orders: My Active Orders 04/17/23 12:33 Ipratropium/Albuterol [Duoneb] 3 ml INH RTQID PRN Subjective - Subjective Patient Reports: Other (very dizzy and feels weak, when stands) Objective Vital Signs: Vital Signs - 24 hr 04/17/23 04/17/23 04/17/23 03:51 08:05 08:57 Temperature 37.0 C 36.6 C Heart Rate [ 77 72 Brachial] Respiratory 16 18 Rate Blood Pressure 120/69 113/65 [Right Brachial artery] O2 Saturation 96 97 If not protocol 2 2 2 : Oxygen Flow, liters/minute 02/06/24 15:29 Temperature 36.7 C Heart Rate [ 92 Brachial] Respiratory 20 Rate Blood Pressure 133/75 H [Right Brachial artery] O2 Saturation 97 If not protocol 2 : Oxygen Flow, liters/minute Oxygen O2 Source [With Activity] Nasal cannula O2 Source Nasal cannula Oxygen Flow Rate 2 I&O (Last 24 Hrs): Intake and Output Totals x24h 04/15/23 04/16/23 04/17/23 23:59 23:59 23:59 Intake Total 2712 2116 2740 Output Total 5 2195 1225 Balance 637 -79 1515 General: Alert, Oriented x3, No acute distress HEENT: EOMI, Mucous membr. moist/pink, Other (Disheveled and poorly kempt) Neck: Supple, No JVD Neuro: Alert, Non Focal Cardiovascular: Regular rate, No murmurs Respiratory: No respiratory distress (Fair air movement in all lung saucedo) Abdomen: Soft, No tenderness Extremities: No clubbing, No edema, No tenderness/swelling - Results Results: Laboratory Results WBC 18.5 x10^3/uL (4.8-10.8) H 04/13/23 10:37 RBC 3.19 10^6/uL (4.70-6.10) L 04/13/23 10:37 Hgb 9.3 g/dL (14.0-18.0) L 04/13/23 10:37 Hct 30.5 % (42.0-52.0) L 04/13/23 10:37 MCV 95.6 fL (80.0-94.0) H 04/13/23 10:37 MCH 29.2 pg (27.0-31.0) 04/13/23 10:37 MCHC 30.5 g/dL (32.0-36.0) L 04/13/23 10:37 RDW 13.9 % (12.0-15.0) 04/13/23 10:37 Plt Count 413 10^3/uL (130-450) 04/13/23 10:37 MPV 8.5 fL (7.4-11.4) 04/13/23 10:37 Neut # (Auto) 15.4 10^3/uL (1.5-6.6) H 04/13/23 10:37 Lymph # (Auto) 0.9 10^3/uL (1.5-3.5) L 04/13/23 10:37 [place] # (Auto) 1.7 10^3/uL (0.0-1.0) H 04/13/23 10:37 Eos # (Auto) 0.3 10^3/uL (0.0-0.7) 04/13/23 10:37 Baso # (Auto) 0.0 10^3/uL (0.0-0.1) 04/13/23 10:37 Absolute Nucleated RBC 0.00 x10^3/uL 04/13/23 10:37 Total Counted 100 04/10/23 05:32 Band Neuts % (Manual) 1 % (0-10) 04/10/23 05:32 Reactive Lymphs % (Man) 3 % 04/05/23 10:25 Abnorm Lymph % (Manual) 0 % 04/10/23 05:32 Metamyelocytes % 2 % (-0) H 04/05/23 04:41 Myelocytes % 1 % (-0) H 04/05/23 10:25 Nucleated RBC % 0.0 /100WBC 04/13/23 10:37 Neutrophils # (Manual) 18.3 10^3/uL (1.5-6.6) H 04/10/23 05:32 Lymphocytes # (Manual) 1.7 10^3/uL (1.5-3.5) 04/10/23 05:32 Monocytes # (Manual) 1.5 10^3/uL (0.0-1.0) H 04/10/23 05:32 Eosinophils # (Manual) 0.0 10^3/uL (0-0.7) 04/10/23 05:32 Basophils # (Manual) 0.0 10^3/uL (0-0.1) 04/10/23 05:32 Differential Comment MANUAL DIFFERENTIAL 04/10/23 05:32 Manual Slide Review Indicated 04/13/23 10:37 Platelet Estimate NORMAL (130-450,000) (NORMAL) 04/13/23 10:37 Platelet Morphology NORMAL APPEARANCE (NORMAL) 04/13/23 10:37 RBC Morph Micro Appear 1+ STOMATOCYTES (NORMAL) 04/13/23 10:37 PT 12.1 secs (9.9-12.6) 04/04/23 04:24 INR 1.1 (0.8-1.2) 04/04/23 04:24 Bld Gas Analysis Time 0646 04/05/23 06:46 Sample Site RIGHT RADIAL 04/05/23 06:46 ABG pH 7.39 (7.35-7.45) 04/05/23 06:46 ABG pCO2 67 mmHg (34-45) H* 04/05/23 06:46 ABG pO2 135 mmHg (80-100) H 04/05/23 06:46 ABG HCO3 39.4 mmol/L (22.0-26.0) H 04/05/23 06:46 ABG Total CO2 41.5 MMOL/L (21.0-29.0) H* 04/05/23 06:46 ABG O2 Saturation 99 % (94-98) H 04/05/23 06:46 ABG Base Excess 12.2 mmol/L (-2.0-3.0) H 04/05/23 06:46 Ganga Test POSITIVE 04/05/23 06:46 VBG pH 7.435 (7.31-7.41) H 04/08/23 04:30 VBG pCO2 71.7 mmHg (41-51) H 04/03/23 05:24 VBG pO2 56.5 mmHg (25-47) H 04/03/23 05:24 VBG HCO3 31.7 mmol/L (23-28) H 04/03/23 05:24 VBG Total CO2 33.9 mmol/L (24-29) H 04/03/23 05:24 VBG O2 Saturation 87.8 % (60-80) H 04/03/23 05:24 VBG Base Excess 2.8 mmol/L (-2 - +2) H 04/03/23 05:24 Ionized Calcium 1.12 mmol/L (1.15-1.33) L 04/08/23 04:30 Respiration Rate 14 b/min 04/03/23 12:20 O2 Delivery Device BiPAP 04/05/23 06:46 FiO2 40.00 04/05/23 06:46 EPAP 5 cmH2O 04/05/23 06:46 IPAP 12 cmH2O 04/05/23 06:46 Sodium 136 mmol/L (135-145) 04/13/23 10:37 Potassium 4.4 mmol/L (3.5-4.5) 04/13/23 10:37 Chloride 98 mmol/L (101-111) L 04/13/23 10:37 Carbon Dioxide 36 mmol/L (21-32) H 04/13/23 10:37 Anion Gap 2.0 (6-13) L 04/13/23 10:37 BUN 26 mg/dL (6-20) H 04/13/23 10:37 Creatinine 0.8 mg/dL (0.6-1.3) 04/13/23 10:37 Estimated GFR (MDRD) 96 (>89) 04/13/23 10:37 Glucose 110 mg/dL (74-104) H 04/13/23 10:37 Estimat Average Glucose 114 mg/dL (70-100) H 04/03/23 05:24 Hemoglobin A1c % 5.6 % (4.27-6.07) 04/03/23 05:24 Lactic Acid 0.5 mmol/L (0.5-2.2) 04/02/23 17:00 Calcium 8.5 mg/dL (8.5-10.3) 04/13/23 10:37 Phosphorus 3.7 mg/dL (2.5-5.0) 04/13/23 10:37 Magnesium 2.0 mg/dL (1.7-2.3) 04/13/23 10:37 Total Bilirubin 0.2 mg/dL (0.2-1.0) 04/04/23 04:24 AST 10 IU/L (10-42) 04/04/23 04:24 ALT 14 IU/L (10-60) 04/04/23 04:24 Alkaline Phosphatase 52 IU/L (42-121) 04/04/23 04:24 Ammonia 32.0 umol/L (18-72) 04/03/23 06:15 Lactate Dehydrogenase 112 IU/L (140-271) L 04/03/23 05:24 Troponin I High Sens 7.1 ng/L (2.3-19.7) 04/06/23 05:00 Total Protein 5.8 g/dL (6.4-8.9) L 04/04/23 04:24 Albumin 3.2 g/dL (3.2-5.5) 04/04/23 04:24 Globulin 2.6 g/dL (2.1-4.2) 04/04/23 04:24 Albumin/Globulin Ratio 1.2 (1.0-2.2) 04/04/23 04:24 Triglycerides 108 mg/dL (48-352) 04/03/23 05:24 Cholesterol 179 mg/dL (-200) 04/03/23 05:24 LDL Cholesterol, Calc 88 mg/dL (-129) 04/03/23 05:24 VLDL Cholesterol 22 mg/dL 04/03/23 05:24 HDL Cholesterol 69 mg/dL (60-) 04/03/23 05:24 LDL/HDL Ratio 1.3 (<3.6) 04/03/23 05:24 Cholesterol/HDL Ratio 2.6 (<5.0) 04/03/23 05:24 TSH 0.54 uIU/mL (0.34-5.60) 04/03/23 05:24 Nasal Adenovirus (PCR) NOT DETECTED 04/02/23 17:07 Nasal B. parapertussis DNA (PCR) NOT DETECTED 04/02/23 17:07 Nasal Coronavir 229E PCR NOT DETECTED 04/02/23 17:07 Nasal Coronavir HKU1 PCR NOT DETECTED 04/02/23 17:07 Nasal Coronavir NL63 PCR NOT DETECTED 04/02/23 17:07 Nasal Coronavir OC43 PCR NOT DETECTED 04/02/23 17:07 Nasal Enterovir/Rhinovir PCR NOT DETECTED 04/02/23 17:07 Nasal Influenza B PCR NOT DETECTED 04/02/23 17:07 Nasal Influenza A PCR NOT DETECTED 04/02/23 17:07 Nasal Parainfluen 1 PCR NOT DETECTED 04/02/23 17:07 Nasal Parainfluen 2 PCR NOT DETECTED 04/02/23 17:07 Nasal Parainfluen 3 PCR NOT DETECTED 04/02/23 17:07 Nasal Parainfluen 4 PCR NOT DETECTED 04/02/23 17:07 Nasal RSV (PCR) NOT DETECTED 04/02/23 17:07 Nasal Screen MRSA (PCR) NEGATIVE (NEGATIVE) 04/03/23 05:15 Nasal B.pertussis DNA PCR NOT DETECTED 04/02/23 17:07 Nasal C.pneumoniae (PCR) NOT DETECTED 04/02/23 17:07 Lenin Human Metapneumo PCR NOT DETECTED 04/02/23 17:07 Nasal M.pneumoniae (PCR) NOT DETECTED 04/02/23 17:07 Nasal SARS-CoV-2 (PCR) NOT DETECTED 04/02/23 17:07 Ethyl Alcohol < 10.0 mg/dL 04/02/23 17:00 - Procedures Procedures: Procedures CATARAC PHACOEMULS/ASPIR (07/16/14) EXCISION OF ASCENDING COLON, ENDO (08/21/18) EXCISION OF DESCENDING COLON, ENDO (08/21/18) EXCISION OF SIGMOID COLON, ENDO (08/21/18) EXCISION OF TRANSVERSE COLON, ENDO (08/21/18) INSERT LENS AT CATAR EXT (07/16/14) REPLACEMENT OF RIGHT LENS WITH SYNTH SUB, PERC APPROACH (12/24/14)
[2023-04-18] MEDS: MIDODRINE 2.5 MG TABLET PO SCH ×2 (09:18→16:21)
--- NOTE | 2023-04-18 19:09 | PROVIDER PROGRESS NOTE ---
Assessment/Plan - Problem List (1) Orthostatic hypotension Assessment/Plan: He is still not medically cleared due to the fact that he is having orthostatic hypotension. All of patient's blood pressure medicines have been discontinued. He was started on daily Flurinef 0.1 mg daily Renin level and aldosterone level were checked, these are send out labs and are still pending Plan: Continue to monitor orthostatic VS Cont Flurinef Cont Midodrine, increase dose from 2.5 mg tid w/ meals to 5 mg tid w/ meals Patient continues to require hospitalization given his symptomatic orthostatic hypotension (2) Acute respiratory failure with hypoxia Assessment/Plan: Mr. England was admitted with acute respiratory failure secondary to COPD exacerbation and pneumonia. He currently is at his baseline. During this hospitalization we attempted to qualify him for bilevel positive airway pressure therapy, unfortunately, he did not qualify. Plan: He is oxygen dependent and requires continuous 2 to 3 L/min by nasal cannula (3) COPD exacerbation Patient currently near baseline. Plan: Continue prednisone at 20 mg daily, Pulmicort kathy BID, and DuoNeb prn (4) Community acquired Pneumonia Resolved. Patient has completed course of ceftriaxone and azithromycin. (5) Alcohol withdrawal As per Hx. Withdrawal has resolved Cont mvi, thiamine (6) Alcohol abuse He drinks whiskey. He was in significant alcohol withdrawal at admission. Alcohol withdrawal has resolved. (7) Prerenal azotemia Resolved. Patient appears to be at his baseline with BUN/creat. (8) Hx HTN Assessment/Plan: Losartan discontinued due to new onset of dizziness/lightheadedness and documented orthostasis upon standing. Metoprolol also discontinued. (9) Nausea Assessment/Plan: He continues to have intermittent episodes of nausea after eating. He has had that for years (10) Tobacco use As per Hx. Plan: Nicotone patch prn Patient counseled to quit smoking. (11) Hyponatremia RESOLVED (12) Thrombocytosis RESOLVED (13) AMS RESOLVED - Current Meds Current Meds: Current Medications Generic Name Dose Route Start Last Admin Trade Name Freq PRN Reason Stop Dose Admin Acetaminophen 325 mg 04/03/23 03:42 04/17/23 16:05 Acetaminophen 325 Mg Tablet PO 325 mg Q4HR PRN Administration Pain 1 to 4, or Fever Aspirin 81 mg 04/03/23 09:00 02/07/24 09:17 Aspirin Ec 81 Mg Tablet PO 81 mg DAILY KATHY Administration Budesonide 0.5 mg 04/03/23 19:00 04/18/23 06:58 Budesonide 0.5 Mg/2 Ml Neb INH 0.5 mg RTBID KATHY Administration Calcium Carbonate/Glycine 500 mg 04/13/23 10:20 04/18/23 09:17 Calcium Carbonate Chew 500 Mg Tablet PO 04/23/23 10:19 500 mg BID KATHY Administration Cholecalciferol 25 mcg 04/03/23 09:00 04/18/23 09:18 Cholecalciferol 25 Mcg Tablet PO 25 mcg DAILY KATHY Administration Docusate Sodium 250 - 500 mg 04/07/23 13:00 04/18/23 09:24 Docusate Sodium 250 Mg Capsule PO 250 mg DAILY KATHY Administration Enoxaparin Sodium 40 mg 04/04/23 09:00 04/18/23 09:15 Enoxaparin 40 Mg/0.4 Ml Syringe SUBQ 40 mg DAILY KATHY Administration Fludrocortisone Acetate 0.1 mg 04/16/23 09:00 04/18/23 09:26 Fludrocortisone 0.1 Mg Tablet PO 0.1 mg DAILY KATHY Administration Formoterol Fumarate 20 mcg 04/03/23 19:00 04/18/23 06:59 Formoterol Fumarate Neb 20 Mcg/2 Ml INH 20 mcg RTBID KATHY Administration Guaifenesin 600 mg 04/03/23 09:00 04/18/23 09:18 Guaifenesin 600 Mg Tablet PO 600 mg BID KATHY Administration Guaifenesin/Codeine Phosphate 5 ml 04/07/23 19:00 04/14/23 18:01 Guaifenesin/Codeine 5 Ml Udc PO 5 ml Q6HR PRN Administration Cough Magnesium Oxide 400 mg 04/03/23 09:00 04/18/23 09:19 Magnesium Oxide 400 Mg Tablet PO 400 mg DAILY KATHY Administration Midodrine 5 mg 04/18/23 17:00 04/18/23 16:21 Midodrine 2.5 Mg Tablet PO 5 mg TIDWM KATHY Administration Multivitamins 1 tab 04/03/23 08:00 04/18/23 09:18 Multivitamin Tablet PO 1 tab DAILYWM KATHY Administration Ondansetron HCl 4 mg 04/02/23 21:16 04/15/23 08:36 Ondansetron 4 Mg/2 Ml Vial IVP 4 mg Q6HR PRN Administration Nausea / Vomiting Ondansetron HCl 4 mg 04/08/23 15:13 04/18/23 07:56 Ondansetron Odt 4 Mg Tablet TL 4 mg Q4HR PRN Administration Nausea / Vomiting Pantoprazole Sodium 40 mg 04/05/23 08:00 04/18/23 09:26 Pantoprazole 40 Mg Tablet PO 40 mg QDBREAKFAST KATHY Administration Polyethylene Glycol 17 gm 04/07/23 13:00 04/18/23 09:16 Polyethylene Glycol 3350 17 Gm Packet PO 17 gm DAILY KATHY Administration Prednisone 20 mg 04/13/23 08:00 04/18/23 09:20 Prednisone 20 Mg Tablet PO 20 mg DAILYWM KATHY Administration Senna 8.6 - 17.2 mg 04/07/23 13:00 04/18/23 09:18 Senna 8.6 Mg Tablet PO 8.6 mg DAILY KATHY Administration Sertraline HCl 100 mg 04/04/23 12:00 04/18/23 09:16 Sertraline 25 Mg Tablet PO 100 mg DAILY KATHY Administration Sodium Chloride 10 ml 04/03/23 09:00 04/18/23 16:21 Sodium Chloride Flush 0.9% 10 Ml Syringe IVP 10 ml 0100,0900,1700 KATHY Administration Sodium Chloride 10 ml 04/03/23 03:42 04/13/23 12:22 Sodium Chloride Flush 0.9% 10 Ml Syringe IVP 10 ml PRN PRN Administration NEEDED PER PROVIDER ORDERS Thiamine HCl 100 mg 04/05/23 11:00 04/18/23 09:17 Thiamine 100 Mg Tablet PO 100 mg DAILY KATHY Administration Trazodone HCl 100 mg 04/04/23 11:52 04/17/23 21:09 Trazodone 50 Mg Tablet PO 100 mg HS PRN Administration Insomnia - Lab Result Fish Bone Diagrams: 04/13/23 10:37 04/13/23 10:37 - Additional Planning My Orders: My Active Orders 04/17/23 19:55 Orthostatic [Vital Signs - Orthostatic] [RC] QSHIFT 04/18/23 17:00 Midodrine [ProAmatine] 5 mg PO TIDWM Subjective - Subjective Patient Reports: Dizzines (Feels lightheaded with standing then too weak to walk) Objective Vital Signs: Vital Signs - 24 hr 04/17/23 04/17/23 04/18/23 22:10 23:45 07:01 Temperature 37.0 C Heart Rate 84 74 Heart Rate [ 83 Brachial] Respiratory 20 18 18 Rate Blood Pressure 128/69 [Right Brachial artery] O2 Saturation 97 If not protocol 2 2 2 : Oxygen Flow, liters/minute 04/18/23 04/18/23 08:25 15:30 Temperature 36.6 C 36.7 C Heart Rate Heart Rate [ 91 87 Brachial] Respiratory 18 18 Rate Blood Pressure 115/63 116/67 [Right Brachial artery] O2 Saturation 96 93 If not protocol 2 2 : Oxygen Flow, liters/minute Oxygen O2 Source [With Activity] Nasal cannula O2 Source Nasal cannula Oxygen Flow Rate 2 I&O (Last 24 Hrs): Intake and Output Totals x24h 04/16/23 04/17/23 04/18/23 23:59 23:59 23:59 Intake Total 2116 3240 1908 Output Total 2195 1225 1200 Balance -79 2014 General: Alert, Oriented x3, No acute distress HEENT: Mucous membr. moist/pink, Other (Disheveled and unkempt, greasy face) Neck: Supple, No JVD Neuro: Alert, Non Focal Cardiovascular: Regular rate, No murmurs Respiratory: No respiratory distress (on O2 suppl), Other (Fair air movement) Abdomen: Soft, No tenderness Extremities: No edema, No tenderness/swelling - Results Results: Laboratory Results WBC 18.5 x10^3/uL (4.8-10.8) H 04/13/23 10:37 RBC 3.19 10^6/uL (4.70-6.10) L 04/13/23 10:37 Hgb 9.3 g/dL (14.0-18.0) L 04/13/23 10:37 Hct 30.5 % (42.0-52.0) L 04/13/23 10:37 MCV 95.6 fL (80.0-94.0) H 04/13/23 10:37 MCH 29.2 pg (27.0-31.0) 04/13/23 10:37 MCHC 30.5 g/dL (32.0-36.0) L 04/13/23 10:37 RDW 13.9 % (12.0-15.0) 04/13/23 10:37 Plt Count 413 10^3/uL (130-450) 04/13/23 10:37 MPV 8.5 fL (7.4-11.4) 04/13/23 10:37 Neut # (Auto) 15.4 10^3/uL (1.5-6.6) H 04/13/23 10:37 Lymph # (Auto) 0.9 10^3/uL (1.5-3.5) L 04/13/23 10:37 [place] # (Auto) 1.7 10^3/uL (0.0-1.0) H 04/13/23 10:37 Eos # (Auto) 0.3 10^3/uL (0.0-0.7) 04/13/23 10:37 Baso # (Auto) 0.0 10^3/uL (0.0-0.1) 04/13/23 10:37 Absolute Nucleated RBC 0.00 x10^3/uL 04/13/23 10:37 Total Counted 100 04/10/23 05:32 Band Neuts % (Manual) 1 % (0-10) 04/10/23 05:32 Reactive Lymphs % (Man) 3 % 04/05/23 10:25 Abnorm Lymph % (Manual) 0 % 04/10/23 05:32 Metamyelocytes % 2 % (-0) H 04/05/23 04:41 Myelocytes % 1 % (-0) H 04/05/23 10:25 Nucleated RBC % 0.0 /100WBC 04/13/23 10:37 Neutrophils # (Manual) 18.3 10^3/uL (1.5-6.6) H 04/10/23 05:32 Lymphocytes # (Manual) 1.7 10^3/uL (1.5-3.5) 04/10/23 05:32 Monocytes # (Manual) 1.5 10^3/uL (0.0-1.0) H 04/10/23 05:32 Eosinophils # (Manual) 0.0 10^3/uL (0-0.7) 04/10/23 05:32 Basophils # (Manual) 0.0 10^3/uL (0-0.1) 04/10/23 05:32 Differential Comment MANUAL DIFFERENTIAL 04/10/23 05:32 Manual Slide Review Indicated 04/13/23 10:37 Platelet Estimate NORMAL (130-450,000) (NORMAL) 04/13/23 10:37 Platelet Morphology NORMAL APPEARANCE (NORMAL) 04/13/23 10:37 RBC Morph Micro Appear 1+ STOMATOCYTES (NORMAL) 04/13/23 10:37 PT 12.1 secs (9.9-12.6) 04/04/23 04:24 INR 1.1 (0.8-1.2) 04/04/23 04:24 Bld Gas Analysis Time 0646 04/05/23 06:46 Sample Site RIGHT RADIAL 04/05/23 06:46 ABG pH 7.39 (7.35-7.45) 04/05/23 06:46 ABG pCO2 67 mmHg (34-45) H* 04/05/23 06:46 ABG pO2 135 mmHg (80-100) H 04/05/23 06:46 ABG HCO3 39.4 mmol/L (22.0-26.0) H 04/05/23 06:46 ABG Total CO2 41.5 MMOL/L (21.0-29.0) H* 04/05/23 06:46 ABG O2 Saturation 99 % (94-98) H 04/05/23 06:46 ABG Base Excess 12.2 mmol/L (-2.0-3.0) H 04/05/23 06:46 Ganga Test POSITIVE 04/05/23 06:46 VBG pH 7.435 (7.31-7.41) H 04/08/23 04:30 VBG pCO2 71.7 mmHg (41-51) H 04/03/23 05:24 VBG pO2 56.5 mmHg (25-47) H 04/03/23 05:24 VBG HCO3 31.7 mmol/L (23-28) H 04/03/23 05:24 VBG Total CO2 33.9 mmol/L (24-29) H 04/03/23 05:24 VBG O2 Saturation 87.8 % (60-80) H 04/03/23 05:24 VBG Base Excess 2.8 mmol/L (-2 - +2) H 04/03/23 05:24 Ionized Calcium 1.12 mmol/L (1.15-1.33) L 04/08/23 04:30 Respiration Rate 14 b/min 04/03/23 12:20 O2 Delivery Device BiPAP 04/05/23 06:46 FiO2 40.00 04/05/23 06:46 EPAP 5 cmH2O 04/05/23 06:46 IPAP 12 cmH2O 04/05/23 06:46 Sodium 136 mmol/L (135-145) 04/13/23 10:37 Potassium 4.4 mmol/L (3.5-4.5) 04/13/23 10:37 Chloride 98 mmol/L (101-111) L 04/13/23 10:37 Carbon Dioxide 36 mmol/L (21-32) H 04/13/23 10:37 Anion Gap 2.0 (6-13) L 04/13/23 10:37 BUN 26 mg/dL (6-20) H 04/13/23 10:37 Creatinine 0.8 mg/dL (0.6-1.3) 04/13/23 10:37 Estimated GFR (MDRD) 96 (>89) 04/13/23 10:37 Glucose 110 mg/dL (74-104) H 04/13/23 10:37 Estimat Average Glucose 114 mg/dL (70-100) H 04/03/23 05:24 Hemoglobin A1c % 5.6 % (4.27-6.07) 04/03/23 05:24 Lactic Acid 0.5 mmol/L (0.5-2.2) 04/02/23 17:00 Calcium 8.5 mg/dL (8.5-10.3) 04/13/23 10:37 Phosphorus 3.7 mg/dL (2.5-5.0) 04/13/23 10:37 Magnesium 2.0 mg/dL (1.7-2.3) 04/13/23 10:37 Total Bilirubin 0.2 mg/dL (0.2-1.0) 04/04/23 04:24 AST 10 IU/L (10-42) 04/04/23 04:24 ALT 14 IU/L (10-60) 04/04/23 04:24 Alkaline Phosphatase 52 IU/L (42-121) 04/04/23 04:24 Ammonia 32.0 umol/L (18-72) 04/03/23 06:15 Lactate Dehydrogenase 112 IU/L (140-271) L 04/03/23 05:24 Troponin I High Sens 7.1 ng/L (2.3-19.7) 04/06/23 05:00 Total Protein 5.8 g/dL (6.4-8.9) L 04/04/23 04:24 Albumin 3.2 g/dL (3.2-5.5) 04/04/23 04:24 Globulin 2.6 g/dL (2.1-4.2) 04/04/23 04:24 Albumin/Globulin Ratio 1.2 (1.0-2.2) 04/04/23 04:24 Triglycerides 108 mg/dL (48-352) 04/03/23 05:24 Cholesterol 179 mg/dL (-200) 04/03/23 05:24 LDL Cholesterol, Calc 88 mg/dL (-129) 04/03/23 05:24 VLDL Cholesterol 22 mg/dL 04/03/23 05:24 HDL Cholesterol 69 mg/dL (60-) 04/03/23 05:24 LDL/HDL Ratio 1.3 (<3.6) 04/03/23 05:24 Cholesterol/HDL Ratio 2.6 (<5.0) 04/03/23 05:24 TSH 0.54 uIU/mL (0.34-5.60) 04/03/23 05:24 Nasal Adenovirus (PCR) NOT DETECTED 04/02/23 17:07 Nasal B. parapertussis DNA (PCR) NOT DETECTED 04/02/23 17:07 Nasal Coronavir 229E PCR NOT DETECTED 04/02/23 17:07 Nasal Coronavir HKU1 PCR NOT DETECTED 04/02/23 17:07 Nasal Coronavir NL63 PCR NOT DETECTED 04/02/23 17:07 Nasal Coronavir OC43 PCR NOT DETECTED 04/02/23 17:07 Nasal Enterovir/Rhinovir PCR NOT DETECTED 04/02/23 17:07 Nasal Influenza B PCR NOT DETECTED 04/02/23 17:07 Nasal Influenza A PCR NOT DETECTED 04/02/23 17:07 Nasal Parainfluen 1 PCR NOT DETECTED 04/02/23 17:07 Nasal Parainfluen 2 PCR NOT DETECTED 04/02/23 17:07 Nasal Parainfluen 3 PCR NOT DETECTED 04/02/23 17:07 Nasal Parainfluen 4 PCR NOT DETECTED 04/02/23 17:07 Nasal RSV (PCR) NOT DETECTED 04/02/23 17:07 Nasal Screen MRSA (PCR) NEGATIVE (NEGATIVE) 04/03/23 05:15 Nasal B.pertussis DNA PCR NOT DETECTED 04/02/23 17:07 Nasal C.pneumoniae (PCR) NOT DETECTED 04/02/23 17:07 Lenin Human Metapneumo PCR NOT DETECTED 04/02/23 17:07 Nasal M.pneumoniae (PCR) NOT DETECTED 04/02/23 17:07 Nasal SARS-CoV-2 (PCR) NOT DETECTED 04/02/23 17:07 Ethyl Alcohol < 10.0 mg/dL 04/02/23 17:00 - Procedures Procedures: Procedures CATARAC PHACOEMULS/ASPIR (07/16/14) EXCISION OF ASCENDING COLON, ENDO (08/21/18) EXCISION OF DESCENDING COLON, ENDO (08/21/18) EXCISION OF SIGMOID COLON, ENDO (08/21/18) EXCISION OF TRANSVERSE COLON, ENDO (08/21/18) INSERT LENS AT CATAR EXT (07/16/14) REPLACEMENT OF RIGHT LENS WITH SYNTH SUB, PERC APPROACH (12/24/14)
--- NOTE | 2023-04-19 18:33 | PROVIDER PROGRESS NOTE ---
Assessment/Plan - Problem List (1) Orthostatic hypotension Assessment/Plan: He is still not medically cleared due to the fact that he is having symptomatic orthostatic hypotension. All of patient's blood pressure medicines have been discontinued. He was started on daily Flurinef 0.1 mg daily Renin level and aldosterone level were checked, these are send out labs and are still pending Plan: Continue to monitor orthostatic VS Cont Flurinef Cont Midodrine, increase dose from 5 mg tid w/ meals to 7.55 mg tid w/ meals Patient continues to require hospitalization given his symptomatic orthostatic hypotension (2) Acute respiratory failure with hypoxia Assessment/Plan: Mr. England was admitted with acute respiratory failure secondary to COPD exacerbation and pneumonia. He currently is at his baseline. During this hospitalization we attempted to qualify him for bilevel positive airway pressure therapy, unfortunately, he did not qualify. Plan: He is oxygen dependent and requires continuous 2 to 3 L/min by nasal cannula (3) COPD exacerbation Patient currently near baseline. Plan: Continue prednisone at 20 mg daily, Pulmicort kathy BID, and DuoNeb prn (4) Community acquired Pneumonia Resolved. Patient has completed course of ceftriaxone and azithromycin. (5) Alcohol withdrawal As per Hx. Withdrawal has resolved Cont mvi, thiamine (6) Alcohol abuse He drank. whiskey. He was in significant alcohol withdrawal at admission. Alcohol withdrawal has resolved. (7) Prerenal azotemia Resolved. Patient appears to be at his baseline with BUN/creat. (8) Hx HTN Assessment/Plan: Losartan discontinued due to new onset of dizziness/lightheadedness and documented orthostasis upon standing. Metoprolol also discontinued. (9) Nausea Assessment/Plan: He continues to have intermittent episodes of nausea after eating. He has had that for years (10) Tobacco use As per Hx. Plan: Nicotone patch prn Patient counseled to quit smoking. (11) Hyponatremia RESOLVED (12) Thrombocytosis RESOLVED (13) AMS RESOLVED - Current Meds Current Meds: Current Medications Generic Name Dose Route Start Last Admin Trade Name Freq PRN Reason Stop Dose Admin Acetaminophen 325 mg 04/03/23 03:42 04/19/23 10:59 Acetaminophen 325 Mg Tablet PO 325 mg Q4HR PRN Administration Pain 1 to 4, or Fever Aspirin 81 mg 04/03/23 09:00 04/19/23 09:02 Aspirin Ec 81 Mg Tablet PO 81 mg DAILY KATHY Administration Budesonide 0.5 mg 04/03/23 19:00 04/19/23 09:03 Budesonide 0.5 Mg/2 Ml Neb INH 0.5 mg RTBID KATHY Administration Calcium Carbonate/Glycine 500 mg 04/13/23 10:20 04/19/23 09:01 Calcium Carbonate Chew 500 Mg Tablet PO 04/23/23 10:19 500 mg BID KATHY Administration Cholecalciferol 25 mcg 04/03/23 09:00 04/19/23 09:03 Cholecalciferol 25 Mcg Tablet PO 25 mcg DAILY [facility] Administration Docusate Sodium 250 - 500 mg 04/07/23 13:00 04/19/23 10:14 Docusate Sodium 250 Mg Capsule PO Not Given DAILY [facility] Enoxaparin Sodium 40 mg 04/04/23 09:00 04/19/23 10:14 Enoxaparin 40 Mg/0.4 Ml Syringe SUBQ Not Given DAILY [facility] Fludrocortisone Acetate 0.1 mg 04/16/23 09:00 04/19/23 09:02 Fludrocortisone 0.1 Mg Tablet PO 0.1 mg DAILY [facility] Administration Formoterol Fumarate 20 mcg 04/03/23 19:00 04/19/23 09:02 Formoterol Fumarate Neb 20 Mcg/2 Ml INH 20 mcg RTBID KATHY Administration Guaifenesin 600 mg 04/03/23 09:00 04/19/23 09:02 Guaifenesin 600 Mg Tablet PO 600 mg BID KATHY Administration Guaifenesin/Codeine Phosphate 5 ml 04/07/23 19:00 04/14/23 18:01 Guaifenesin/Codeine 5 Ml Udc PO 5 ml Q6HR PRN Administration Cough Magnesium Oxide 400 mg 04/03/23 09:00 04/19/23 09:03 Magnesium Oxide 400 Mg Tablet PO 400 mg DAILY KATHY Administration Midodrine 5 mg 04/18/23 17:00 04/19/23 16:24 Midodrine 2.5 Mg Tablet PO 5 mg TIDWM KATHY Administration Multivitamins 1 tab 04/03/23 08:00 04/19/23 09:02 Multivitamin Tablet PO 1 tab DAILYWM KATHY Administration Ondansetron HCl 4 mg 04/02/23 21:16 04/15/23 08:36 Ondansetron 4 Mg/2 Ml Vial IVP 4 mg Q6HR PRN Administration Nausea / Vomiting Ondansetron HCl 4 mg 04/08/23 15:13 04/18/23 07:56 Ondansetron Odt 4 Mg Tablet TL 4 mg Q4HR PRN Administration Nausea / Vomiting Pantoprazole Sodium 40 mg 04/05/23 08:00 04/19/23 09:07 Pantoprazole 40 Mg Tablet PO 40 mg QDBREAKFAST KATHY Administration Polyethylene Glycol 17 gm 04/07/23 13:00 04/19/23 10:14 Polyethylene Glycol 3350 17 Gm Packet PO Not Given DAILY KATHY Prednisone 20 mg 04/13/23 08:00 04/19/23 09:02 Prednisone 20 Mg Tablet PO 20 mg DAILYWM KATHY Administration Senna 8.6 - 17.2 mg 04/07/23 13:00 04/19/23 09:02 Senna 8.6 Mg Tablet PO 8.6 mg DAILY KATHY Administration Sertraline HCl 100 mg 04/04/23 12:00 04/19/23 09:02 Sertraline 25 Mg Tablet PO 100 mg DAILY KATHY Administration Sodium Chloride 10 ml 04/03/23 09:00 04/19/23 16:24 Sodium Chloride Flush 0.9% 10 Ml Syringe IVP 10 ml 0100,0900,1700 KATHY Administration Sodium Chloride 10 ml 04/03/23 03:42 04/13/23 12:22 Sodium Chloride Flush 0.9% 10 Ml Syringe IVP 10 ml PRN PRN Administration NEEDED PER PROVIDER ORDERS Thiamine HCl 100 mg 04/05/23 11:00 04/19/23 09:03 Thiamine 100 Mg Tablet PO 100 mg DAILY KATHY Administration Trazodone HCl 100 mg 04/04/23 11:52 04/18/23 20:45 Trazodone 50 Mg Tablet PO 100 mg HS PRN Administration Insomnia - Lab Result Fish Bone Diagrams: 04/13/23 10:37 04/13/23 10:37 - Additional Planning My Orders: My Active Orders 04/19/23 12:15 Nutrition Consult [CONS] Routine Subjective - Subjective Patient Reports: Dizzines (Slightly improved with the dizziness but it is still present when he stands then he feels too weak to walk) Objective Vital Signs: Vital Signs - 24 hr 04/18/23 04/19/23 04/19/23 21:10 01:29 07:00 Temperature 36.8 C Heart Rate [ 68 Brachial] Respiratory 18 Rate Blood Pressure 111/63 [Right Brachial artery] O2 Saturation 96 If not protocol 2 2 2 : Oxygen Flow, liters/minute 04/19/23 04/19/23 08:30 16:23 Temperature 36.7 C 36.8 C Heart Rate [ 78 84 Brachial] Respiratory 20 20 Rate Blood Pressure 109/65 117/67 [Right Brachial artery] O2 Saturation 97 97 If not protocol 2 2 : Oxygen Flow, liters/minute Oxygen O2 Source [With Activity] Nasal cannula O2 Source Nasal cannula Oxygen Flow Rate 2 I&O (Last 24 Hrs): Intake and Output Totals x24h 04/17/23 04/18/23 04/19/23 23:59 23:59 23:59 Intake Total 3240 1908 1688 Output Total 1225 1375 1550 Balance 2015 533 138 General: Alert, Oriented x3, Other (Disheveled, poorly kempt, greasy face) HEENT: EOMI, Mucous membr. moist/pink Neck: Supple, No JVD Neuro: Alert, Non Focal Cardiovascular: Regular rate Respiratory: No respiratory distress Abdomen: Soft, No tenderness Extremities: No edema, No tenderness/swelling - Results Results: Laboratory Results WBC 18.5 x10^3/uL (4.8-10.8) H 04/13/23 10:37 RBC 3.19 10^6/uL (4.70-6.10) L 04/13/23 10:37 Hgb 9.3 g/dL (14.0-18.0) L 04/13/23 10:37 Hct 30.5 % (42.0-52.0) L 04/13/23 10:37 MCV 95.6 fL (80.0-94.0) H 04/13/23 10:37 MCH 29.2 pg (27.0-31.0) 04/13/23 10:37 MCHC 30.5 g/dL (32.0-36.0) L 04/13/23 10:37 RDW 13.9 % (12.0-15.0) 04/13/23 10:37 Plt Count 413 10^3/uL (130-450) 04/13/23 10:37 MPV 8.5 fL (7.4-11.4) 04/13/23 10:37 Neut # (Auto) 15.4 10^3/uL (1.5-6.6) H 04/13/23 10:37 Lymph # (Auto) 0.9 10^3/uL (1.5-3.5) L 04/13/23 10:37 Cloud # (Auto) 1.7 10^3/uL (0.0-1.0) H 04/13/23 10:37 Eos # (Auto) 0.3 10^3/uL (0.0-0.7) 04/13/23 10:37 Baso # (Auto) 0.0 10^3/uL (0.0-0.1) 04/13/23 10:37 Absolute Nucleated RBC 0.00 x10^3/uL 04/13/23 10:37 Total Counted 100 04/10/23 05:32 Band Neuts % (Manual) 1 % (0-10) 04/10/23 05:32 Reactive Lymphs % (Man) 3 % 04/05/23 10:25 Abnorm Lymph % (Manual) 0 % 04/10/23 05:32 Metamyelocytes % 2 % (-0) H 04/05/23 04:41 Myelocytes % 1 % (-0) H 04/05/23 10:25 Nucleated RBC % 0.0 /100WBC 04/13/23 10:37 Neutrophils # (Manual) 18.3 10^3/uL (1.5-6.6) H 04/10/23 05:32 Lymphocytes # (Manual) 1.7 10^3/uL (1.5-3.5) 04/10/23 05:32 Monocytes # (Manual) 1.5 10^3/uL (0.0-1.0) H 04/10/23 05:32 Eosinophils # (Manual) 0.0 10^3/uL (0-0.7) 04/10/23 05:32 Basophils # (Manual) 0.0 10^3/uL (0-0.1) 04/10/23 05:32 Differential Comment MANUAL DIFFERENTIAL 04/10/23 05:32 Manual Slide Review Indicated 04/13/23 10:37 Platelet Estimate NORMAL (130-450,000) (NORMAL) 04/13/23 10:37 Platelet Morphology NORMAL APPEARANCE (NORMAL) 04/13/23 10:37 RBC Morph Micro Appear 1+ STOMATOCYTES (NORMAL) 04/13/23 10:37 PT 12.1 secs (9.9-12.6) 04/04/23 04:24 INR 1.1 (0.8-1.2) 04/04/23 04:24 Bld Gas Analysis Time 0646 04/05/23 06:46 Sample Site RIGHT RADIAL 04/05/23 06:46 ABG pH 7.39 (7.35-7.45) 04/05/23 06:46 ABG pCO2 67 mmHg (34-45) H* 04/05/23 06:46 ABG pO2 135 mmHg (80-100) H 04/05/23 06:46 ABG HCO3 39.4 mmol/L (22.0-26.0) H 04/05/23 06:46 ABG Total CO2 41.5 MMOL/L (21.0-29.0) H* 04/05/23 06:46 ABG O2 Saturation 99 % (94-98) H 04/05/23 06:46 ABG Base Excess 12.2 mmol/L (-2.0-3.0) H 04/05/23 06:46 Ganga Test POSITIVE 04/05/23 06:46 VBG pH 7.435 (7.31-7.41) H 04/08/23 04:30 VBG pCO2 71.7 mmHg (41-51) H 04/03/23 05:24 VBG pO2 56.5 mmHg (25-47) H 04/03/23 05:24 VBG HCO3 31.7 mmol/L (23-28) H 04/03/23 05:24 VBG Total CO2 33.9 mmol/L (24-29) H 04/03/23 05:24 VBG O2 Saturation 87.8 % (60-80) H 04/03/23 05:24 VBG Base Excess 2.8 mmol/L (-2 - +2) H 04/03/23 05:24 Ionized Calcium 1.12 mmol/L (1.15-1.33) L 04/08/23 04:30 Respiration Rate 14 b/min 04/03/23 12:20 O2 Delivery Device BiPAP 04/05/23 06:46 FiO2 40.00 04/05/23 06:46 EPAP 5 cmH2O 04/05/23 06:46 IPAP 12 cmH2O 04/05/23 06:46 Sodium 136 mmol/L (135-145) 04/13/23 10:37 Potassium 4.4 mmol/L (3.5-4.5) 04/13/23 10:37 Chloride 98 mmol/L (101-111) L 04/13/23 10:37 Carbon Dioxide 36 mmol/L (21-32) H 04/13/23 10:37 Anion Gap 2.0 (6-13) L 04/13/23 10:37 BUN 26 mg/dL (6-20) H 04/13/23 10:37 Creatinine 0.8 mg/dL (0.6-1.3) 04/13/23 10:37 Estimated GFR (MDRD) 96 (>89) 04/13/23 10:37 Glucose 110 mg/dL (74-104) H 04/13/23 10:37 Estimat Average Glucose 114 mg/dL (70-100) H 04/03/23 05:24 Hemoglobin A1c % 5.6 % (4.27-6.07) 04/03/23 05:24 Lactic Acid 0.5 mmol/L (0.5-2.2) 04/02/23 17:00 Calcium 8.5 mg/dL (8.5-10.3) 04/13/23 10:37 Phosphorus 3.7 mg/dL (2.5-5.0) 04/13/23 10:37 Magnesium 2.0 mg/dL (1.7-2.3) 04/13/23 10:37 Total Bilirubin 0.2 mg/dL (0.2-1.0) 04/04/23 04:24 AST 10 IU/L (10-42) 04/04/23 04:24 ALT 14 IU/L (10-60) 04/04/23 04:24 Alkaline Phosphatase 52 IU/L (42-121) 04/04/23 04:24 Ammonia 32.0 umol/L (18-72) 04/03/23 06:15 Lactate Dehydrogenase 112 IU/L (140-271) L 04/03/23 05:24 Troponin I High Sens 7.1 ng/L (2.3-19.7) 04/06/23 05:00 Total Protein 5.8 g/dL (6.4-8.9) L 04/04/23 04:24 Albumin 3.2 g/dL (3.2-5.5) 04/04/23 04:24 Globulin 2.6 g/dL (2.1-4.2) 04/04/23 04:24 Albumin/Globulin Ratio 1.2 (1.0-2.2) 04/04/23 04:24 Triglycerides 108 mg/dL (48-352) 04/03/23 05:24 Cholesterol 179 mg/dL (-200) 04/03/23 05:24 LDL Cholesterol, Calc 88 mg/dL (-129) 04/03/23 05: VLDL Cholesterol 22 mg/dL 04/03/23 05:24 HDL Cholesterol 69 mg/dL (60-) 04/03/23 05:24 LDL/HDL Ratio 1.3 (<3.6) 04/03/23 05:24 Cholesterol/HDL Ratio 2.6 (<5.0) 04/03/23 05:24 TSH 0.54 uIU/mL (0.34-5.60) 04/03/23 05:24 Nasal Adenovirus (PCR) NOT DETECTED 04/02/23 17:07 Nasal B. parapertussis DNA (PCR) NOT DETECTED 04/02/23 17:07 Nasal Coronavir 229E PCR NOT DETECTED 04/02/23 17:07 Nasal Coronavir HKU1 PCR NOT DETECTED 04/02/23 17:07 Nasal Coronavir NL63 PCR NOT DETECTED 04/02/23 17:07 Nasal Coronavir OC43 PCR NOT DETECTED 04/02/23 17:07 Nasal Enterovir/Rhinovir PCR NOT DETECTED 04/02/23 17:07 Nasal Influenza B PCR NOT DETECTED 04/02/23 17:07 Nasal Influenza A PCR NOT DETECTED 04/02/23 17:07 Nasal Parainfluen 1 PCR NOT DETECTED 04/02/23 17:07 Nasal Parainfluen 2 PCR NOT DETECTED 04/02/23 17:07 Nasal Parainfluen 3 PCR NOT DETECTED 04/02/23 17:07 Nasal Parainfluen 4 PCR NOT DETECTED 04/02/23 17:07 Nasal RSV (PCR) NOT DETECTED 04/02/23 17:07 Nasal Screen MRSA (PCR) NEGATIVE (NEGATIVE) 04/03/23 05:15 Nasal B.pertussis DNA PCR NOT DETECTED 04/02/23 17:07 Nasal C.pneumoniae (PCR) NOT DETECTED 04/02/23 17:07 Lenin Human Metapneumo PCR NOT DETECTED 04/02/23 17:07 Nasal M.pneumoniae (PCR) NOT DETECTED 04/02/23 17:07 Nasal SARS-CoV-2 (PCR) NOT DETECTED 04/02/23 17:07 Ethyl Alcohol < 10.0 mg/dL 04/02/23 17:00 - Procedures Procedures: Procedures CATARAC PHACOEMULS/ASPIR (07/16/14) EXCISION OF ASCENDING COLON, ENDO (08/21/18) EXCISION OF DESCENDING COLON, ENDO (08/21/18) EXCISION OF SIGMOID COLON, ENDO (08/21/18) EXCISION OF TRANSVERSE COLON, ENDO (08/21/18) INSERT LENS AT CATAR EXT (07/16/14) REPLACEMENT OF RIGHT LENS WITH SYNTH SUB, PERC APPROACH (12/24/14)
[2023-04-19] MEDS: ALBUTEROL NEB 2.5 MG/3 ML INH PRN (19:26)
[2023-04-20] MEDS: IPRATROPIUM/ALBUTEROL 3 ML NEB INH PRN (06:10)
[2023-04-20] MEDS: MIDODRINE 2.5 MG TABLET PO SCH (12:28)
--- NOTE | 2023-04-20 19:01 | PROVIDER PROGRESS NOTE ---
Assessment/Plan - Problem List (1) Orthostatic hypotension Assessment/Plan: His symptomatic orthostatic hypotension has prolonged his hospitalization All of patient's blood pressure medicines have been discontinued. He was started on daily Flurinef 0.1 mg daily Renin level and aldosterone level were checked, these are send out labs and are still pending Plan: Continue to monitor orthostatic VS Cont Flurinef Cont Midodrine at 7.5 mg tid w/ meals Patient is now medically cleared for transfer to SNF for rehab (2) Acute respiratory failure with hypoxia Assessment/Plan: Mr. England was admitted with acute respiratory failure secondary to COPD exacerbation and pneumonia. He currently is at his baseline. During this hospitalization we attempted to qualify him for bilevel positive airway pressure therapy, unfortunately, he did not qualify. Plan: He is oxygen dependent and requires continuous 2 to 3 L/min by nasal cannula (3) COPD exacerbation Patient currently near baseline. Plan: Continue Pulmicort kathy BID, and DuoNeb prn I will start to taper oral Prednisone from 20 mg daily to 15 mg daily (4) Community acquired Pneumonia Resolved. Patient has completed course of ceftriaxone and azithromycin. (5) Alcohol withdrawal As per Hx. Withdrawal has resolved Cont mvi, thiamine (6) Alcohol abuse He drank. whiskey. He was in significant alcohol withdrawal at admission. Alcohol withdrawal has resolved. (7) Prerenal azotemia Resolved. Patient appears to be at his baseline with BUN/creat. (8) Hx HTN Assessment/Plan: Losartan discontinued due to new onset of dizziness/lightheadedness and documented orthostasis upon standing. Metoprolol also discontinued. (9) Nausea Assessment/Plan: He continues to have intermittent episodes of nausea after eating. He has had that for years (10) Tobacco use As per Hx. Plan: Nicotone patch prn Patient counseled to quit smoking. (11) Hyponatremia RESOLVED (12) Thrombocytosis RESOLVED (13) AMS RESOLVED - Current Meds Current Meds: Current Medications Generic Name Dose Route Start Last Admin Trade Name Freq PRN Reason Stop Dose Admin Acetaminophen 325 mg 04/03/23 03:42 04/20/23 18:52 Acetaminophen 325 Mg Tablet PO 325 mg Q4HR PRN Administration Pain 1 to 4, or Fever Albuterol 2.5 mg 04/03/23 03:54 04/19/23 19:26 Albuterol Neb 2.5 Mg/3 Ml INH 2.5 mg RTQ4H PRN Administration Wheezing Albuterol/Ipratropium 3 ml 04/17/23 12:33 04/20/23 18:11 Ipratropium/Albuterol 3 Ml Neb INH 3 ml RTQID PRN Administration Wheezing Aspirin 81 mg 04/03/23 09:00 04/20/23 09:16 Aspirin Ec 81 Mg Tablet PO 81 mg DAILY KATHY Administration Budesonide 0.5 mg 04/03/23 19:00 04/20/23 18:11 Budesonide 0.5 Mg/2 Ml Neb INH 0.5 mg RTBID KATHY Administration Calcium Carbonate/Glycine 500 mg 04/13/23 10:20 04/20/23 09:16 Calcium Carbonate Chew 500 Mg Tablet PO 04/23/23 10:19 500 mg BID KATHY Administration Cholecalciferol 25 mcg 04/03/23 09:00 04/20/23 09:16 Cholecalciferol 25 Mcg Tablet PO 25 mcg DAILY KATHY Administration Docusate Sodium 250 - 500 mg 04/07/23 13:00 04/20/23 09:16 Docusate Sodium 250 Mg Capsule PO Not Given DAILY KATHY Enoxaparin Sodium 40 mg 04/04/23 09:00 04/20/23 09:16 Enoxaparin 40 Mg/0.4 Ml Syringe SUBQ 40 mg DAILY KATHY Administration Fludrocortisone Acetate 0.1 mg 04/16/23 09:00 04/20/23 09:15 Fludrocortisone 0.1 Mg Tablet PO 0.1 mg DAILY KATHY Administration Formoterol Fumarate 20 mcg 04/03/23 19:00 04/20/23 18:11 Formoterol Fumarate Neb 20 Mcg/2 Ml INH 20 mcg RTBID KATHY Administration Guaifenesin 600 mg 04/03/23 09:00 04/20/23 09:16 Guaifenesin 600 Mg Tablet PO 600 mg BID KATHY Administration Guaifenesin/Codeine Phosphate 5 ml 04/07/23 19:00 04/14/23 18:01 Guaifenesin/Codeine 5 Ml Udc PO 5 ml Q6HR PRN Administration Cough Magnesium Oxide 400 mg 04/03/23 09:00 04/20/23 09:16 Magnesium Oxide 400 Mg Tablet PO 400 mg DAILY KATHY Administration Midodrine 7.5 mg 04/20/23 12:00 04/20/23 17:57 Midodrine 2.5 Mg Tablet PO 7.5 mg TIDWM KATHY Administration Multivitamins 1 tab 04/03/23 08:00 04/20/23 09:16 Multivitamin Tablet PO 1 tab DAILYWM KATHY Administration Ondansetron HCl 4 mg 04/02/23 21:16 04/15/23 08:36 Ondansetron 4 Mg/2 Ml Vial IVP 4 mg Q6HR PRN Administration Nausea / Vomiting Ondansetron HCl 4 mg 04/08/23 15:13 04/20/23 13:56 Ondansetron Odt 4 Mg Tablet TL 4 mg Q4HR PRN Administration Nausea / Vomiting Pantoprazole Sodium 40 mg 04/05/23 08:00 04/20/23 09:31 Pantoprazole 40 Mg Tablet PO 40 mg QDBREAKFAST KATHY Administration Polyethylene Glycol 17 gm 04/07/23 13:00 04/20/23 09:17 Polyethylene Glycol 3350 17 Gm Packet PO Not Given DAILY KATHY Senna 8.6 - 17.2 mg 04/07/23 13:00 04/20/23 09:21 Senna 8.6 Mg Tablet PO Not Given DAILY KATHY Sertraline HCl 100 mg 04/04/23 12:00 04/20/23 09:16 Sertraline 25 Mg Tablet PO 100 mg DAILY KATHY Administration Sodium Chloride 10 ml 04/03/23 09:00 04/20/23 17:57 Sodium Chloride Flush 0.9% 10 Ml Syringe IVP 10 ml 0100,0900,1700 KATHY Administration Sodium Chloride 10 ml 04/03/23 03:42 04/13/23 12:22 Sodium Chloride Flush 0.9% 10 Ml Syringe IVP 10 ml PRN PRN Administration NEEDED PER PROVIDER ORDERS Thiamine HCl 100 mg 04/05/23 11:00 04/20/23 09:16 Thiamine 100 Mg Tablet PO 100 mg DAILY KATHY Administration Trazodone HCl 100 mg 04/04/23 11:52 04/19/23 21:55 Trazodone 50 Mg Tablet PO 100 mg HS PRN Administration Insomnia - Lab Result Fish Bone Diagrams: 04/13/23 10:37 04/13/23 10:37 - Additional Planning My Orders: My Active Orders 04/20/23 12:00 Midodrine [ProAmatine] 7.5 mg PO TIDWM 04/21/23 08:00 predniSONE [Deltasone] 15 mg PO DAILYWM Subjective - Subjective Patient Reports: Resting Comfortably, No Complaints (For the last 24 hours he is able to ambulate with PT without having dizziness when standing or walking) Objective Vital Signs: Vital Signs - 24 hr 04/19/23 04/20/23 04/20/23 19:25 00:20 06:10 Temperature 37.2 C Heart Rate 90 81 Heart Rate [ 85 Brachial] Respiratory 18 20 18 Rate Blood Pressure 108/60 [Right Brachial artery] O2 Saturation 96 If not protocol 2 2 3 : Oxygen Flow, liters/minute 04/20/23 04/20/23 04/20/23 08:42 15:38 18:13 Temperature 36.6 C 36.7 C Heart Rate Heart Rate [ 72 78 Brachial] Respiratory 20 18 Rate Blood Pressure 113/62 116/63 [Right Brachial artery] O2 Saturation 99 95 If not protocol 2 2 2 : Oxygen Flow, liters/minute Oxygen O2 Source [With Activity] Nasal cannula O2 Source Nasal cannula Oxygen Flow Rate 2 I&O (Last 24 Hrs): Intake and Output Totals x24h 04/18/23 04/19/23 04/20/23 23:59 23:59 23:59 Intake Total 1908 2168 840 Output Total 1375 2350 1750 Balance 533 -182 -910 General: Alert, Oriented x3 HEENT: Mucous membr. moist/pink Neck: Supple, No JVD Neuro: Alert, Non Focal Cardiovascular: Regular rate Respiratory: No respiratory distress Abdomen: No tenderness Extremities: No edema, No tenderness/swelling - Results Results: Laboratory Results WBC 18.5 x10^3/uL (4.8-10.8) H 04/13/23 10:37 RBC 3.19 10^6/uL (4.70-6.10) L 04/13/23 10:37 Hgb 9.3 g/dL (14.0-18.0) L 04/13/23 10:37 Hct 30.5 % (42.0-52.0) L 04/13/23 10:37 MCV 95.6 fL (80.0-94.0) H 04/13/23 10:37 MCH 29.2 pg (27.0-31.0) 04/13/23 10:37 MCHC 30.5 g/dL (32.0-36.0) L 04/13/23 10:37 RDW 13.9 % (12.0-15.0) 04/13/23 10:37 Plt Count 413 10^3/uL (130-450) 04/13/23 10:37 MPV 8.5 fL (7.4-11.4) 04/13/23 10:37 Neut # (Auto) 15.4 10^3/uL (1.5-6.6) H 04/13/23 10:37 Lymph # (Auto) 0.9 10^3/uL (1.5-3.5) L 04/13/23 10:37 [place] # (Auto) 1.7 10^3/uL (0.0-1.0) H 04/13/23 10:37 Eos # (Auto) 0.3 10^3/uL (0.0-0.7) 04/13/23 10:37 Baso # (Auto) 0.0 10^3/uL (0.0-0.1) 04/13/23 10:37 Absolute Nucleated RBC 0.00 x10^3/uL 04/13/23 10:37 Total Counted 100 04/10/23 05:32 Band Neuts % (Manual) 1 % (0-10) 04/10/23 05:32 Reactive Lymphs % (Man) 3 % 04/05/23 10:25 Abnorm Lymph % (Manual) 0 % 04/10/23 05:32 Metamyelocytes % 2 % (-0) H 04/05/23 04:41 Myelocytes % 1 % (-0) H 04/05/23 10:25 Nucleated RBC % 0.0 /100WBC 04/13/23 10:37 Neutrophils # (Manual) 18.3 10^3/uL (1.5-6.6) H 04/10/23 05:32 Lymphocytes # (Manual) 1.7 10^3/uL (1.5-3.5) 04/10/23 05:32 Monocytes # (Manual) 1.5 10^3/uL (0.0-1.0) H 04/10/23 05:32 Eosinophils # (Manual) 0.0 10^3/uL (0-0.7) 04/10/23 05:32 Basophils # (Manual) 0.0 10^3/uL (0-0.1) 04/10/23 05:32 Differential Comment MANUAL DIFFERENTIAL 04/10/23 05:32 Manual Slide Review Indicated 04/13/23 10:37 Platelet Estimate NORMAL (130-450,000) (NORMAL) 04/13/23 10:37 Platelet Morphology NORMAL APPEARANCE (NORMAL) 04/13/23 10:37 RBC Morph Micro Appear 1+ STOMATOCYTES (NORMAL) 04/13/23 10:37 PT 12.1 secs (9.9-12.6) 04/04/23 04:24 INR 1.1 (0.8-1.2) 04/04/23 04:24 Bld Gas Analysis Time 0646 04/05/23 06:46 Sample Site RIGHT RADIAL 04/05/23 06:46 ABG pH 7.39 (7.35-7.45) 04/05/23 06:46 ABG pCO2 67 mmHg (34-45) H* 04/05/23 06:46 ABG pO2 135 mmHg (80-100) H 04/05/23 06:46 ABG HCO3 39.4 mmol/L (22.0-26.0) H 04/05/23 06:46 ABG Total CO2 41.5 MMOL/L (21.0-29.0) H* 04/05/23 06:46 ABG O2 Saturation 99 % (94-98) H 04/05/23 06:46 ABG Base Excess 12.2 mmol/L (-2.0-3.0) H 04/05/23 06:46 Ganga Test POSITIVE 04/05/23 06:46 VBG pH 7.435 (7.31-7.41) H 04/08/23 04:30 VBG pCO2 71.7 mmHg (41-51) H 04/03/23 05:24 VBG pO2 56.5 mmHg (25-47) H 04/03/23 05:24 VBG HCO3 31.7 mmol/L (23-28) H 04/03/23 05:24 VBG Total CO2 33.9 mmol/L (24-29) H 04/03/23 05:24 VBG O2 Saturation 87.8 % (60-80) H 04/03/23 05:24 VBG Base Excess 2.8 mmol/L (-2 - +2) H 04/03/23 05:24 Ionized Calcium 1.12 mmol/L (1.15-1.33) L 04/08/23 04:30 Respiration Rate 14 b/min 04/03/23 12:20 O2 Delivery Device BiPAP 04/05/23 06:46 FiO2 40.00 04/05/23 06:46 EPAP 5 cmH2O 04/05/23 06:46 IPAP 12 cmH2O 04/05/23 06:46 Sodium 136 mmol/L (135-145) 04/13/23 10:37 Potassium 4.4 mmol/L (3.5-4.5) 04/13/23 10:37 Chloride 98 mmol/L (101-111) L 04/13/23 10:37 Carbon Dioxide 36 mmol/L (21-32) H 04/13/23 10:37 Anion Gap 2.0 (6-13) L 04/13/23 10:37 BUN 26 mg/dL (6-20) H 04/13/23 10:37 Creatinine 0.8 mg/dL (0.6-1.3) 04/13/23 10:37 Estimated GFR (MDRD) 96 (>89) 04/13/23 10:37 Glucose 110 mg/dL (74-104) H 04/13/23 10:37 Estimat Average Glucose 114 mg/dL (70-100) H 04/03/23 05:24 Hemoglobin A1c % 5.6 % (4.27-6.07) 04/03/23 05:24 Lactic Acid 0.5 mmol/L (0.5-2.2) 04/02/23 17:00 Calcium 8.5 mg/dL (8.5-10.3) 04/13/23 10:37 Phosphorus 3.7 mg/dL (2.5-5.0) 04/13/23 10:37 Magnesium 2.0 mg/dL (1.7-2.3) 04/13/23 10:37 Total Bilirubin 0.2 mg/dL (0.2-1.0) 04/04/23 04:24 AST 10 IU/L (10-42) 04/04/23 04:24 ALT 14 IU/L (10-60) 04/04/23 04:24 Alkaline Phosphatase 52 IU/L (42-121) 04/04/23 04:24 Ammonia 32.0 umol/L (18-72) 04/03/23 06:15 Lactate Dehydrogenase 112 IU/L (140-271) L 04/03/23 05:24 Troponin I High Sens 7.1 ng/L (2.3-19.7) 04/06/23 05:00 Total Protein 5.8 g/dL (6.4-8.9) L 04/04/23 04:24 Albumin 3.2 g/dL (3.2-5.5) 04/04/23 04:24 Globulin 2.6 g/dL (2.1-4.2) 04/04/23 04:24 Albumin/Globulin Ratio 1.2 (1.0-2.2) 04/04/23 04:24 Triglycerides 108 mg/dL (48-352) 04/03/23 05:24 Cholesterol 179 mg/dL (-200) 04/03/23 05:24 LDL Cholesterol, Calc 88 mg/dL (-129) 04/03/23 05:24 VLDL Cholesterol 22 mg/dL 04/03/23 05:24 HDL Cholesterol 69 mg/dL (60-) 04/03/23 05:24 LDL/HDL Ratio 1.3 (<3.6) 04/03/23 05:24 Cholesterol/HDL Ratio 2.6 (<5.0) 04/03/23 05:24 TSH 0.54 uIU/mL (0.34-5.60) 04/03/23 05:24 Nasal Adenovirus (PCR) NOT DETECTED 04/02/23 17:07 Nasal B. parapertussis DNA (PCR) NOT DETECTED 04/02/23 17:07 Nasal Coronavir 229E PCR NOT DETECTED 04/02/23 17:07 Nasal Coronavir HKU1 PCR NOT DETECTED 04/02/23 17:07 Nasal Coronavir NL63 PCR NOT DETECTED 04/02/23 17:07 Nasal Coronavir OC43 PCR NOT DETECTED 04/02/23 17:07 Nasal Enterovir/Rhinovir PCR NOT DETECTED 04/02/23 17:07 Nasal Influenza B PCR NOT DETECTED 04/02/23 17:07 Nasal Influenza A PCR NOT DETECTED 04/02/23 17:07 Nasal Parainfluen 1 PCR NOT DETECTED 04/02/23 17:07 Nasal Parainfluen 2 PCR NOT DETECTED 04/02/23 17:07 Nasal Parainfluen 3 PCR NOT DETECTED 04/02/23 17:07 Nasal Parainfluen 4 PCR NOT DETECTED 04/02/23 17:07 Nasal RSV (PCR) NOT DETECTED 04/02/23 17:07 Nasal Screen MRSA (PCR) NEGATIVE (NEGATIVE) 04/03/23 05:15 Nasal B.pertussis DNA PCR NOT DETECTED 04/02/23 17:07 Nasal C.pneumoniae (PCR) NOT DETECTED 04/02/23 17:07 Lenin Human Metapneumo PCR NOT DETECTED 04/02/23 17:07 Nasal M.pneumoniae (PCR) NOT DETECTED 04/02/23 17:07 Nasal SARS-CoV-2 (PCR) NOT DETECTED 04/02/23 17:07 Ethyl Alcohol < 10.0 mg/dL 04/02/23 17:00 - Procedures Procedures: Procedures CATARAC PHACOEMULS/ASPIR (07/16/14) EXCISION OF ASCENDING COLON, ENDO (08/21/18) EXCISION OF DESCENDING COLON, ENDO (08/21/18) EXCISION OF SIGMOID COLON, ENDO (08/21/18) EXCISION OF TRANSVERSE COLON, ENDO (08/21/18) INSERT LENS AT CATAR EXT (07/16/14) REPLACEMENT OF RIGHT LENS WITH SYNTH SUB, PERC APPROACH (12/24/14)
[2023-04-21] MEDS: predniSONE 5 MG TABLET PO SCH (08:12)
[2023-04-21 10:34] LABS: BASOPHILS # (AUTO) 0.1 10^3/uL (0.0-0.1); BASOPHILS % (AUTO) 0.8 %; EOSINOPHILS # (AUTO) 0.3 10^3/uL (0.0-0.7); EOSINOPHILS % (AUTO) 2.5 %; HGB - HEMOGLOBIN 7.5 g/dL (14.0-18.0); LYMPHOCYTES # (AUTO) 1.4 10^3/uL (1.5-3.5); LYMPHOCYTES % (AUTO) 10.3 %; MEAN CORPUSCULAR HEMOGLOBIN 28.8 pg (27.0-31.0); MEAN CORPUSCULAR HGB CONC 31.3 g/dL (32.0-36.0); MEAN CORPUSCULAR VOLUME 92.3 fL (80.0-94.0); MEAN PLATELET VOLUME 8.4 fL (7.4-11.4); MONOCYTES # (AUTO) 0.9 10^3/uL (0.0-1.0); MONOCYTES % (AUTO) 6.9 %; NEUTROPHILS # (AUTO) 10.9 10^3/uL (1.5-6.6); NEUTROPHILS % (AUTO) 79.1 %; PLT - PLATELET COUNT 332 10^3/uL (130-450); RED CELL DISTRIBUTION WIDTH 13.6 % (12.0-15.0); WHITE BLOOD COUNT 13.7 x10^3/uL (4.8-10.8)
[2023-04-21 11:03] LABS: CALCIUM 8.9 mg/dL (8.5-10.3); CREATININE 0.9 mg/dL (0.6-1.3); POTASSIUM 3.9 mmol/L (3.5-4.5)
--- NOTE | 2023-04-21 15:10 | PROVIDER PROGRESS NOTE ---
Assessment/Plan - Problem List (1) Orthostatic hypotension Assessment/Plan: His symptomatic orthostatic hypotension has prolonged this hospitalization All of patient's blood pressure medicines have been discontinued. He was started on daily Flurinef 0.1 mg daily and put on Midodrine with dose slowly increased Renin level and aldosterone level were checked, these are send out labs and are still pending He has not been asymptomatic without dizziness for 2 days now, despite slight orthostasis Plan: Cancel orthostatic VS checks Cont Flurinef Cont Midodrine at 7.5 mg tid w/ meals Cont working (walking further) with PT and OT Patient is now medically cleared for transfer to SNF for rehab (2) Acute respiratory failure with hypoxia Assessment/Plan: Mr. England was admitted with acute respiratory failure secondary to COPD exacerbation and pneumonia. He currently is at his baseline. During this hospitalization we attempted to qualify him for bilevel positive ai rway pressure therapy, unfortunately, he did not qualify. Plan: He is oxygen dependent and requires continuous 2 to 3 L/min by nasal cannula (3) COPD exacerbation Patient currently near baseline. Plan: Continue Pulmicort kathy BID, and DuoNeb prn I started to taper oral Prednisone from 20 mg daily to 15 mg daily, as of 04/20/23 (4) Nausea He continues to have intermittent and rare episodes of nausea after eating. He has had that for years Plan: PRN meds ordered (5) Tobacco use As per Hx. Plan: Nicotone patch prn Patient counseled to quit smoking. (6) Community acquired Pneumonia Resolved. Patient has completed course of ceftriaxone and azithromycin. (7) Alcohol withdrawal As per Hx. Withdrawal has resolved Cont mvi, thiamine (8) Alcohol abuse He drank whiskey. He was in significant alcohol withdrawal at admission. Alcohol withdrawal has resolved. (9) Prerenal azotemia Resolved. Patient appears to be at his baseline with BUN/creat. (10) Hx HTN Assessment/Plan: Losartan discontinued due to new onset of dizziness/lightheadedness and documented orthostasis upon standing. Metoprolol also discontinued. (11) Hyponatremia RESOLVED (12) Thrombocytosis RESOLVED (13) AMS RESOLVED - Current Meds Current Meds: Current Medications Generic Name Dose Route Start Last Admin Trade Name Freq PRN Reason Stop Dose Admin Acetaminophen 325 mg 04/03/23 03:42 04/20/23 18:52 Acetaminophen 325 Mg Tablet PO 325 mg Q4HR PRN Administration Pain 1 to 4, or Fever Albuterol 2.5 mg 04/03/23 03:54 04/19/23 19:26 Albuterol Neb 2.5 Mg/3 Ml INH 2.5 mg RTQ4H PRN Administration Wheezing Albuterol/Ipratropium 3 ml 04/17/23 12:33 04/20/23 18:11 Ipratropium/Albuterol 3 Ml Neb INH 3 ml RTQID PRN Administration Wheezing Aspirin 81 mg 04/03/23 09:00 04/21/23 08:12 Aspirin Ec 81 Mg Tablet PO 81 mg DAILY KATHY Administration Budesonide 0.5 mg 04/03/23 19:00 04/21/23 10:51 Budesonide 0.5 Mg/2 Ml Neb INH Not Given RTBID KATHY Calcium Carbonate/Glycine 500 mg 04/13/23 10:20 04/21/23 08:11 Calcium Carbonate Chew 500 Mg Tablet PO 04/23/23 10:19 500 mg BID KATHY Administration Cholecalciferol 25 mcg 04/03/23 09:00 04/21/23 08:11 Cholecalciferol 25 Mcg Tablet PO 25 mcg DAILY KATHY Administration Docusate Sodium 250 - 500 mg 04/07/23 13:00 04/21/23 08:12 Docusate Sodium 250 Mg Capsule PO 250 mg DAILY KATHY Administration Enoxaparin Sodium 40 mg 04/04/23 09:00 04/21/23 08:12 Enoxaparin 40 Mg/0.4 Ml Syringe SUBQ 40 mg DAILY KATHY Administration Fludrocortisone Acetate 0.1 mg 04/16/23 09:00 04/21/23 08:22 Fludrocortisone 0.1 Mg Tablet PO 0.1 mg DAILY KATHY Administration Formoterol Fumarate 20 mcg 04/03/23 19:00 04/21/23 10:50 Formoterol Fumarate Neb 20 Mcg/2 Ml INH Not Given RTBID KATHY Guaifenesin 600 mg 04/03/23 09:00 04/21/23 08:12 Guaifenesin 600 Mg Tablet PO 600 mg BID KATHY Administration Guaifenesin/Codeine Phosphate 5 ml 04/07/23 19:00 04/14/23 18:01 Guaifenesin/Codeine 5 Ml Udc PO 5 ml Q6HR PRN Administration Cough Magnesium Oxide 400 mg 04/03/23 09:00 04/21/23 08:11 Magnesium Oxide 400 Mg Tablet PO 400 mg DAILY KATHY Administration Midodrine 7.5 mg 04/20/23 12:00 04/21/23 12:33 Midodrine 2.5 Mg Tablet PO 7.5 mg TIDWM KATHY Administration Multivitamins 1 tab 04/03/23 08:00 04/21/23 08:12 Multivitamin Tablet PO 1 tab DAILYWM KATHY Administration Ondansetron HCl 4 mg 04/02/23 21:16 04/15/23 08:36 Ondansetron 4 Mg/2 Ml Vial IVP 4 mg Q6HR PRN Administration Nausea / Vomiting Ondansetron HCl 4 mg 04/08/23 15:13 04/21/23 09:23 Ondansetron Odt 4 Mg Tablet TL 4 mg Q4HR PRN Administration Nausea / Vomiting Pantoprazole Sodium 40 mg 04/05/23 08:00 04/21/23 08:11 Pantoprazole 40 Mg Tablet PO 40 mg QDBREAKFAST KATHY Administration Polyethylene Glycol 17 gm 04/07/23 13:00 04/21/23 08:17 Polyethylene Glycol 3350 17 Gm Packet PO Not Given DAILY KATHY Prednisone 15 mg 04/21/23 08:00 04/21/23 08:12 Prednisone 5 Mg Tablet PO 15 mg DAILYWM KATHY Administration Senna 8.6 - 17.2 mg 04/07/23 13:00 04/21/23 08:12 Senna 8.6 Mg Tablet PO 8.6 mg DAILY KATHY Administration Sertraline HCl 100 mg 04/04/23 12:00 04/21/23 08:11 Sertraline 25 Mg Tablet PO 100 mg DAILY KATHY Administration Sodium Chloride 10 ml 04/03/23 09:00 04/21/23 08:13 Sodium Chloride Flush 0.9% 10 Ml Syringe IVP 10 ml 0100,0900,1700 KATHY Administration Sodium Chloride 10 ml 04/03/23 03:42 04/13/23 12:22 Sodium Chloride Flush 0.9% 10 Ml Syringe IVP 10 ml PRN PRN Administration NEEDED PER PROVIDER ORDERS Thiamine HCl 100 mg 04/05/23 11:00 04/21/23 08:12 Thiamine 100 Mg Tablet PO 100 mg DAILY KATHY Administration Trazodone HCl 100 mg 04/04/23 11:52 04/20/23 21:42 Trazodone 50 Mg Tablet PO 100 mg HS PRN Administration Insomnia - Lab Result Fish Bone Diagrams: 04/21/23 10:30 04/21/23 10:30 - Additional Planning My Orders: My Active Orders 04/21/23 08:00 predniSONE [Deltasone] 15 mg PO DAILYWM Subjective - Subjective Patient Reports: No Complaints Objective Vital Signs: Vital Signs - 24 hr 04/20/23 04/20/23 04/21/23 15:38 18:13 00:14 Temperature 36.7 C 37.1 C Heart Rate [ 78 84 Brachial] Respiratory 18 20 Rate Blood Pressure 116/63 105/63 [Right Brachial artery] O2 Saturation 95 95 If not protocol 2 2 2 : Oxygen Flow, liters/minute 04/21/23 04/21/23 04/21/23 08:29 08:33 11:02 Temperature 37.4 C Heart Rate [ 79 Brachial] Respiratory 18 Rate Blood Pressure 119/62 [Right Brachial artery] O2 Saturation 96 If not protocol 2 4 2 : Oxygen Flow, liters/minute Oxygen O2 Source [With Activity] Nasal cannula O2 Source Nasal cannula Oxygen Flow Rate 2 I&O (Last 24 Hrs): Intake and Output Totals x24h 04/19/23 04/20/23 04/21/23 23:59 23:59 23:59 Intake Total 2168 1440 850 Output Total 2350 1900 775 Balance -182 -460 75 General: Alert, Oriented x3, No acute distress HEENT: Mucous membr. moist/pink Neck: Supple Neuro: Alert, Non Focal Cardiovascular: No murmurs Respiratory: No respiratory distress (on suppl O2) Extremities: No edema, No tenderness/swelling - Results Results: Laboratory Results WBC 13.7 x10^3/uL (4.8-10.8) H 04/21/23 10:30 RBC 2.60 10^6/uL (4.70-6.10) L 04/21/23 10:30 Hgb 7.5 g/dL (14.0-18.0) L 04/21/23 10:30 Hct 24.0 % (42.0-52.0) L 04/21/23 10:30 MCV 92.3 fL (80.0-94.0) 04/21/23 10:30 MCH 28.8 pg (27.0-31.0) 04/21/23 10:30 MCHC 31.3 g/dL (32.0-36.0) L 04/21/23 10:30 RDW 13.6 % (12.0-15.0) 04/21/23 10:30 Plt Count 332 10^3/uL (130-450) 04/21/23 10:30 MPV 8.4 fL (7.4-11.4) 04/21/23 10:30 Neut # (Auto) 10.9 10^3/uL (1.5-6.6) H 04/21/23 10:30 Lymph # (Auto) 1.4 10^3/uL (1.5-3.5) L 04/21/23 10:30 Cass # (Auto) 0.9 10^3/uL (0.0-1.0) 04/21/23 10:30 Eos # (Auto) 0.3 10^3/uL (0.0-0.7) 04/21/23 10:30 Baso # (Auto) 0.1 10^3/uL (0.0-0.1) 04/21/23 10:30 Absolute Nucleated RBC 0.00 x10^3/uL 04/21/23 10:30 Total Counted 100 04/10/23 05:32 Band Neuts % (Manual) 1 % (0-10) 04/10/23 05:32 Reactive Lymphs % (Man) 3 % 04/05/23 10:25 Abnorm Lymph % (Manual) 0 % 04/10/23 05:32 Metamyelocytes % 2 % (-0) H 04/05/23 04:41 Myelocytes % 1 % (-0) H 04/05/23 10:25 Nucleated RBC % 0.0 /100WBC 04/21/23 10:30 Neutrophils # (Manual) 18.3 10^3/uL (1.5-6.6) H 04/10/23 05:32 Lymphocytes # (Manual) 1.7 10^3/uL (1.5-3.5) 04/10/23 05:32 Monocytes # (Manual) 1.5 10^3/uL (0.0-1.0) H 04/10/23 05:32 Eosinophils # (Manual) 0.0 10^3/uL (0-0.7) 04/10/23 05:32 Basophils # (Manual) 0.0 10^3/uL (0-0.1) 04/10/23 05:32 Differential Comment MANUAL DIFFERENTIAL 04/10/23 05:32 Manual Slide Review Indicated 04/13/23 10:37 Platelet Estimate NORMAL (130-450,000) (NORMAL) 04/13/23 10:37 Platelet Morphology NORMAL APPEARANCE (NORMAL) 04/13/23 10:37 RBC Morph Micro Appear 1+ STOMATOCYTES (NORMAL) 04/13/23 10:37 PT 12.1 secs (9.9-12.6) 04/04/23 04:24 INR 1.1 (0.8-1.2) 04/04/23 04:24 Bld Gas Analysis Time 0646 04/05/23 06:46 Sample Site RIGHT RADIAL 04/05/23 06:46 ABG pH 7.39 (7.35-7.45) 04/05/23 06:46 ABG pCO2 67 mmHg (34-45) H* 04/05/23 06:46 ABG pO2 135 mmHg (80-100) H 04/05/23 06:46 ABG HCO3 39.4 mmol/L (22.0-26.0) H 04/05/23 06:46 ABG Total CO2 41.5 MMOL/L (21.0-29.0) H* 04/05/23 06:46 ABG O2 Saturation 99 % (94-98) H 04/05/23 06:46 ABG Base Excess 12.2 mmol/L (-2.0-3.0) H 04/05/23 06:46 Ganga Test POSITIVE 04/05/23 06:46 VBG pH 7.435 (7.31-7.41) H 04/08/23 04:30 VBG pCO2 71.7 mmHg (41-51) H 04/03/23 05:24 VBG pO2 56.5 mmHg (25-47) H 04/03/23 05:24 VBG HCO3 31.7 mmol/L (23-28) H 04/03/23 05:24 VBG Total CO2 33.9 mmol/L (24-29) H 04/03/23 05:24 VBG O2 Saturation 87.8 % (60-80) H 04/03/23 05:24 VBG Base Excess 2.8 mmol/L (-2 - +2) H 04/03/23 05:24 Ionized Calcium 1.12 mmol/L (1.15-1.33) L 04/08/23 04:30 Respiration Rate 14 b/min 04/03/23 12:20 O2 Delivery Device BiPAP 04/05/23 06:46 FiO2 40.00 04/05/23 06:46 EPAP 5 cmH2O 04/05/23 06:46 IPAP 12 cmH2O 04/05/23 06:46 Sodium 140 mmol/L (135-145) 04/21/23 10:30 Potassium 3.9 mmol/L (3.5-4.5) 04/21/23 10:30 Chloride 104 mmol/L (101-111) 04/21/23 10:30 Carbon Dioxide 30 mmol/L (21-32) 04/21/23 10:30 Anion Gap 6.0 (6-13) 04/21/23 10:30 BUN 22 mg/dL (6-20) H 04/21/23 10:30 Creatinine 0.9 mg/dL (0.6-1.3) 04/21/23 10:30 Estimated GFR (MDRD) 84 (>89) L 04/21/23 10:30 Glucose 131 mg/dL (74-104) H 04/21/23 10:30 Estimat Average Glucose 114 mg/dL (70-100) H 04/03/23 05:24 Hemoglobin A1c % 5.6 % (4.27-6.07) 04/03/23 05:24 Lactic Acid 0.5 mmol/L (0.5-2.2) 04/02/23 17:00 Calcium 8.9 mg/dL (8.5-10.3) 04/21/23 10:30 Phosphorus 3.7 mg/dL (2.5-5.0) 04/13/23 10:37 Magnesium 2.0 mg/dL (1.7-2.3) 04/13/23 10:37 Total Bilirubin 0.2 mg/dL (0.2-1.0) 04/04/23 04:24 AST 10 IU/L (10-42) 04/04/23 04:24 ALT 14 IU/L (10-60) 04/04/23 04:24 Alkaline Phosphatase 52 IU/L (42-121) 04/04/23 04:24 Ammonia 32.0 umol/L (18-72) 04/03/23 06:15 Lactate Dehydrogenase 112 IU/L (140-271) L 04/03/23 05:24 Troponin I High Sens 7.1 ng/L (2.3-19.7) 04/06/23 05:00 Total Protein 5.8 g/dL (6.4-8.9) L 04/04/23 04:24 Albumin 3.2 g/dL (3.2-5.5) 04/04/23 04:24 Globulin 2.6 g/dL (2.1-4.2) 04/04/23 04:24 Albumin/Globulin Ratio 1.2 (1.0-2.2) 04/04/23 04:24 Triglycerides 108 mg/dL (48-352) 04/03/23 05:24 Cholesterol 179 mg/dL (-200) 04/03/23 05:24 LDL Cholesterol, Calc 88 mg/dL (-129) 04/03/23 05:24 VLDL Cholesterol 22 mg/dL 04/03/23 05:24 HDL Cholesterol 69 mg/dL (60-) 04/03/23 05:24 LDL/HDL Ratio 1.3 (<3.6) 04/03/23 05:24 Cholesterol/HDL Ratio 2.6 (<5.0) 04/03/23 05:24 TSH 0.54 uIU/mL (0.34-5.60) 04/03/23 05:24 Nasal Adenovirus (PCR) NOT DETECTED 04/02/23 17:07 Nasal B. parapertussis DNA (PCR) NOT DETECTED 04/02/23 17:07 Nasal Coronavir 229E PCR NOT DETECTED 04/02/23 17:07 Nasal Coronavir HKU1 PCR NOT DETECTED 04/02/23 17:07 Nasal Coronavir NL63 PCR NOT DETECTED 04/02/23 17:07 Nasal Coronavir OC43 PCR NOT DETECTED 04/02/23 17:07 Nasal Enterovir/Rhinovir PCR NOT DETECTED 04/02/23 17:07 Nasal Influenza B PCR NOT DETECTED 04/02/23 17:07 Nasal Influenza A PCR NOT DETECTED 04/02/23 17:07 Nasal Parainfluen 1 PCR NOT DETECTED 04/02/23 17:07 Nasal Parainfluen 2 PCR NOT DETECTED 04/02/23 17:07 Nasal Parainfluen 3 PCR NOT DETECTED 04/02/23 17:07 Nasal Parainfluen 4 PCR NOT DETECTED 04/02/23 17:07 Nasal RSV (PCR) NOT DETECTED 04/02/23 17:07 Nasal Screen MRSA (PCR) NEGATIVE (NEGATIVE) 04/03/23 05:15 Nasal B.pertussis DNA PCR NOT DETECTED 04/02/23 17:07 Nasal C.pneumoniae (PCR) NOT DETECTED 04/02/23 17:07 Lenin Human Metapneumo PCR NOT DETECTED 04/02/23 17:07 Nasal M.pneumoniae (PCR) NOT DETECTED 04/02/23 17:07 Nasal SARS-CoV-2 (PCR) NOT DETECTED 04/02/23 17:07 Ethyl Alcohol < 10.0 mg/dL 04/02/23 17:00 - Procedures Procedures: Procedures CATARAC PHACOEMULS/ASPIR (07/16/14) EXCISION OF ASCENDING COLON, ENDO (08/21/18) EXCISION OF DESCENDING COLON, ENDO (08/21/18) EXCISION OF SIGMOID COLON, ENDO (08/21/18) EXCISION OF TRANSVERSE COLON, ENDO (08/21/18) INSERT LENS AT CATAR EXT (07/16/14) REPLACEMENT OF RIGHT LENS WITH SYNTH SUB, PERC APPROACH (12/24/14)
--- NOTE | 2023-04-22 18:47 | PROVIDER PROGRESS NOTE ---
Assessment/Plan - Problem List (1) Orthostatic hypotension Assessment/Plan: His symptomatic orthostatic hypotension has prolonged this hospitalization All of patient's blood pressure medicines have been discontinued. He was started on daily Flurinef 0.1 mg daily and put on Midodrine with dose slowly increased Renin level and aldosterone level were checked, these are send out labs and are still pending He has not been asymptomatic without dizziness for several days now, despite slight orthostasis Plan: Cancel orthostatic VS checks Cont Flurinef Cont Midodrine at 7.5 mg tid w/ meals Cont working (walking further) with PT and OT Patient is now medically cleared for transfer to SNF for rehab (2) Acute respiratory failure with hypoxia Assessment/Plan: Mr. England was admitted with acute respiratory failure secondary to COPD exacerbation and pneumonia. He currently is at his baseline. During this hospitalization we attempted to qualify him for bilevel positive airway pressure therapy, unfortunately, he did not qualify. Plan: He is oxygen dependent and requires continuous 2 to 3 L/min by nasal cannula (3) COPD exacerbation Patient currently near baseline. Plan: Continue Pulmicort kathy BID, and DuoNeb prn I started to taper oral Prednisone from 20 mg daily to 15 mg daily, as of 04/20/23. I plan a slow taper over several weeks. (4) Nausea He continues to have intermittent and rare episodes of nausea after eating. He has had that for years and does not see a pattern Plan: PRN Reglan will be tried, in case this is gastroparesis, as per recommendation from [facility] (5) Tobacco use As per Hx. Plan: Nicotone patch prn Patient counseled to quit smoking. (6) Community acquired Pneumonia Resolved. Patient has completed course of ceftriaxone and azithromycin. (7) Alcohol withdrawal Resolved Cont mvi, thiamine (8) Alcohol abuse He drank whiskey. He was in significant alcohol withdrawal at admission. Alcohol withdrawal has resolved. (9) Prerenal azotemia Resolved. Patient appears to be at his baseline with BUN/creat. (10) Hx HTN Assessment/Plan: Losartan discontinued due to new onset of dizziness/lightheadedness and documented orthostasis upon standing. Metoprolol also discontinued. (11) Hyponatremia RESOLVED (12) Thrombocytosis RESOLVED (13) AMS RESOLVED - Current Meds Current Meds: Current Medications Generic Name Dose Route Start Last Admin Trade Name Freq PRN Reason Stop Dose Admin Acetaminophen 325 mg 04/03/23 03:42 04/20/23 18:52 Acetaminophen 325 Mg Tablet PO 325 mg Q4HR PRN Administration Pain 1 to 4, or Fever Albuterol 2.5 mg 04/03/23 03:54 04/19/23 19:26 Albuterol Neb 2.5 Mg/3 Ml INH 2.5 mg RTQ4H PRN Administration Wheezing Albuterol/Ipratropium 3 ml 04/17/23 12:33 04/20/23 18:11 Ipratropium/Albuterol 3 Ml Neb INH 3 ml RTQID PRN Administration Wheezing Aspirin 81 mg 04/03/23 09:00 04/22/23 09:03 Aspirin Ec 81 Mg Tablet PO 81 mg DAILY KATHY Administration Budesonide 0.5 mg 04/03/23 19:00 04/22/23 17:52 Budesonide 0.5 Mg/2 Ml Neb INH 0.5 mg RTBID KATHY Administration Calcium Carbonate/Glycine 500 mg 04/13/23 10:20 04/22/23 09:02 Calcium Carbonate Chew 500 Mg Tablet PO 04/23/23 10:19 500 mg BID KATHY Administration Cholecalciferol 25 mcg 04/03/23 09:00 04/22/23 09:03 Cholecalciferol 25 Mcg Tablet PO 25 mcg DAILY KATHY Administration Docusate Sodium 250 - 500 mg 04/07/23 13:00 04/22/23 09:03 Docusate Sodium 250 Mg Capsule PO 250 mg DAILY KATHY Administration Enoxaparin Sodium 40 mg 04/04/23 09:00 04/22/23 09:05 Enoxaparin 40 Mg/0.4 Ml Syringe SUBQ 40 mg DAILY KATHY Administration Fludrocortisone Acetate 0.1 mg 04/16/23 09:00 04/22/23 09:03 Fludrocortisone 0.1 Mg Tablet PO 0.1 mg DAILY KATHY Administration Formoterol Fumarate 20 mcg 04/03/23 19:00 04/22/23 17:52 Formoterol Fumarate Neb 20 Mcg/2 Ml INH 20 mcg RTBID KATHY Administration Guaifenesin 600 mg 04/03/23 09:00 04/22/23 09:03 Guaifenesin 600 Mg Tablet PO 600 mg BID KATHY Administration Guaifenesin/Codeine Phosphate 5 ml 04/07/23 19:00 04/14/23 18:01 Guaifenesin/Codeine 5 Ml Udc PO 5 ml Q6HR PRN Administration Cough Magnesium Oxide 400 mg 04/03/23 09:00 04/22/23 09:03 Magnesium Oxide 400 Mg Tablet PO 400 mg DAILY KATHY Administration Midodrine 7.5 mg 04/20/23 12:00 04/22/23 17:15 Midodrine 2.5 Mg Tablet PO 7.5 mg TIDWM KATHY Administration Multivitamins 1 tab 04/03/23 08:00 04/22/23 09:03 Multivitamin Tablet PO 1 tab DAILYWM KATHY Administration Ondansetron HCl 4 mg 04/02/23 21:16 04/15/23 08:36 Ondansetron 4 Mg/2 Ml Vial IVP 4 mg Q6HR PRN Administration Nausea / Vomiting Ondansetron HCl 4 mg 04/08/23 15:13 04/21/23 09:23 Ondansetron Odt 4 Mg Tablet TL 4 mg Q4HR PRN Administration Nausea / Vomiting Pantoprazole Sodium 40 mg 04/05/23 08:00 04/22/23 09:03 Pantoprazole 40 Mg Tablet PO 40 mg QDBREAKFAST KATHY Administration Polyethylene Glycol 17 gm 04/07/23 13:00 04/22/23 09:01 Polyethylene Glycol 3350 17 Gm Packet PO 17 gm DAILY KATHY Administration Prednisone 15 mg 04/21/23 08:00 04/22/23 09:02 Prednisone 5 Mg Tablet PO 15 mg DAILYWM KATHY Administration Senna 8.6 - 17.2 mg 04/07/23 13:00 04/22/23 09:03 Senna 8.6 Mg Tablet PO 8.6 mg DAILY KATHY Administration Sertraline HCl 100 mg 04/04/23 12:00 04/22/23 09:04 Sertraline 25 Mg Tablet PO 100 mg DAILY KATHY Administration Sodium Chloride 10 ml 04/03/23 09:00 04/22/23 17:16 Sodium Chloride Flush 0.9% 10 Ml Syringe IVP 10 ml 0100,0900,1700 KATHY Administration Sodium Chloride 10 ml 04/03/23 03:42 04/13/23 12:22 Sodium Chloride Flush 0.9% 10 Ml Syringe IVP 10 ml PRN PRN Administration NEEDED PER PROVIDER ORDERS Thiamine HCl 100 mg 04/05/23 11:00 04/22/23 09:04 Thiamine 100 Mg Tablet PO 100 mg DAILY KATHY Administration Trazodone HCl 100 mg 04/04/23 11:52 04/21/23 21:45 Trazodone 50 Mg Tablet PO 100 mg HS PRN Administration Insomnia - Lab Result Fish Bone Diagrams: 04/21/23 10:30 04/21/23 10:30 Objective Vital Signs: Vital Signs - 24 hr 04/21/23 04/22/23 04/22/23 23:55 08:15 11:02 Temperature 37.1 C 36.6 C Heart Rate Heart Rate [ 80 77 Brachial] Respiratory 20 18 Rate Blood Pressure 101/46 L 117/64 [Right Brachial artery] O2 Saturation 96 98 If not protocol 2 2 2 : Oxygen Flow, liters/minute 04/22/23 04/22/23 04/22/23 15:39 17:53 17:55 Temperature 37.1 C Heart Rate 69 Heart Rate [ 77 Brachial] Respiratory 16 17 Rate Blood Pressure 130/70 [Right Brachial artery] O2 Saturation 96 If not protocol 2 2 2 : Oxygen Flow, liters/minute Oxygen O2 Source [With Activity] Nasal cannula O2 Source Nasal cannula Oxygen Flow Rate 2 I&O (Last 24 Hrs): Intake and Output Totals x24h 04/20/23 04/21/23 04/22/23 23:59 23:59 23:59 Intake Total 1440 1480 1080 Output Total 1900 1500 1465 Balance -460 -20 -385 - Results Results: Laboratory Results WBC 13.7 x10^3/uL (4.8-10.8) H 04/21/23 10:30 RBC 2.60 10^6/uL (4.70-6.10) L 04/21/23 10:30 Hgb 7.5 g/dL (14.0-18.0) L 04/21/23 10:30 Hct 24.0 % (42.0-52.0) L 04/21/23 10:30 MCV 92.3 fL (80.0-94.0) 04/21/23 10:30 MCH 28.8 pg (27.0-31.0) 04/21/23 10:30 MCHC 31.3 g/dL (32.0-36.0) L 04/21/23 10:30 RDW 13.6 % (12.0-15.0) 04/21/23 10:30 Plt Count 332 10^3/uL (130-450) 04/21/23 10:30 MPV 8.4 fL (7.4-11.4) 04/21/23 10:30 Neut # (Auto) 10.9 10^3/uL (1.5-6.6) H 04/21/23 10:30 Lymph # (Auto) 1.4 10^3/uL (1.5-3.5) L 04/21/23 10:30 Ida # (Auto) 0.9 10^3/uL (0.0-1.0) 04/21/23 10:30 Eos # (Auto) 0.3 10^3/uL (0.0-0.7) 04/21/23 10:30 Baso # (Auto) 0.1 10^3/uL (0.0-0.1) 04/21/23 10:30 Absolute Nucleated RBC 0.00 x10^3/uL 04/21/23 10:30 Total Counted 100 04/10/23 05:32 Band Neuts % (Manual) 1 % (0-10) 04/10/23 05:32 Reactive Lymphs % (Man) 3 % 04/05/23 10:25 Abnorm Lymph % (Manual) 0 % 04/10/23 05:32 Metamyelocytes % 2 % (-0) H 04/05/23 04:41 Myelocytes % 1 % (-0) H 04/05/23 10:25 Nucleated RBC % 0.0 /100WBC 04/21/23 10:30 Neutrophils # (Manual) 18.3 10^3/uL (1.5-6.6) H 04/10/23 05:32 Lymphocytes # (Manual) 1.7 10^3/uL (1.5-3.5) 04/10/23 05:32 Monocytes # (Manual) 1.5 10^3/uL (0.0-1.0) H 04/10/23 05:32 Eosinophils # (Manual) 0.0 10^3/uL (0-0.7) 04/10/23 05:32 Basophils # (Manual) 0.0 10^3/uL (0-0.1) 04/10/23 05:32 Differential Comment MANUAL DIFFERENTIAL 04/10/23 05:32 Manual Slide Review Indicated 04/13/23 10:37 Platelet Estimate NORMAL (130-450,000) (NORMAL) 04/13/23 10:37 Platelet Morphology NORMAL APPEARANCE (NORMAL) 04/13/23 10:37 RBC Morph Micro Appear 1+ STOMATOCYTES (NORMAL) 04/13/23 10:37 PT 12.1 secs (9.9-12.6) 04/04/23 04:24 INR 1.1 (0.8-1.2) 04/04/23 04:24 Bld Gas Analysis Time 0646 04/05/23 06:46 Sample Site RIGHT RADIAL 04/05/23 06:46 ABG pH 7.39 (7.35-7.45) 04/05/23 06:46 ABG pCO2 67 mmHg (34-45) H* 04/05/23 06:46 ABG pO2 135 mmHg (80-100) H 04/05/23 06:46 ABG HCO3 39.4 mmol/L (22.0-26.0) H 04/05/23 06:46 ABG Total CO2 41.5 MMOL/L (21.0-29.0) H* 04/05/23 06:46 ABG O2 Saturation 99 % (94-98) H 04/05/23 06:46 ABG Base Excess 12.2 mmol/L (-2.0-3.0) H 04/05/23 06:46 Ganga Test POSITIVE 04/05/23 06:46 VBG pH 7.435 (7.31-7.41) H 04/08/23 04:30 VBG pCO2 71.7 mmHg (41-51) H 04/03/23 05:24 VBG pO2 56.5 mmHg (25-47) H 04/03/23 05:24 VBG HCO3 31.7 mmol/L (23-28) H 04/03/23 05:24 VBG Total CO2 33.9 mmol/L (24-29) H 04/03/23 05:24 VBG O2 Saturation 87.8 % (60-80) H 04/03/23 05:24 VBG Base Excess 2.8 mmol/L (-2 - +2) H 04/03/23 05:24 Ionized Calcium 1.12 mmol/L (1.15-1.33) L 04/08/23 04:30 Respiration Rate 14 b/min 04/03/23 12:20 O2 Delivery Device BiPAP 04/05/23 06:46 FiO2 40.00 04/05/23 06:46 EPAP 5 cmH2O 04/05/23 06:46 IPAP 12 cmH2O 04/05/23 06:46 Sodium 140 mmol/L (135-145) 04/21/23 10:30 Potassium 3.9 mmol/L (3.5-4.5) 04/21/23 10:30 Chloride 104 mmol/L (101-111) 04/21/23 10:30 Carbon Dioxide 30 mmol/L (21-32) 04/21/23 10:30 Anion Gap 6.0 (6-13) 04/21/23 10:30 BUN 22 mg/dL (6-20) H 04/21/23 10:30 Creatinine 0.9 mg/dL (0.6-1.3) 04/21/23 10:30 Estimated GFR (MDRD) 84 (>89) L 04/21/23 10:30 Glucose 131 mg/dL (74-104) H 04/21/23 10:30 Estimat Average Glucose 114 mg/dL (70-100) H 04/03/23 05:24 Hemoglobin A1c % 5.6 % (4.27-6.07) 04/03/23 05:24 Lactic Acid 0.5 mmol/L (0.5-2.2) 04/02/23 17:00 Calcium 8.9 mg/dL (8.5-10.3) 04/21/23 10:30 Phosphorus 3.7 mg/dL (2.5-5.0) 04/13/23 10:37 Magnesium 2.0 mg/dL (1.7-2.3) 04/13/23 10:37 Total Bilirubin 0.2 mg/dL (0.2-1.0) 04/04/23 04:24 AST 10 IU/L (10-42) 04/04/23 04:24 ALT 14 IU/L (10-60) 04/04/23 04:24 Alkaline Phosphatase 52 IU/L (42-121) 04/04/23 04:24 Ammonia 32.0 umol/L (18-72) 04/03/23 06:15 Lactate Dehydrogenase 112 IU/L (140-271) L 04/03/23 05:24 Troponin I High Sens 7.1 ng/L (2.3-19.7) 04/06/23 05:00 Total Protein 5.8 g/dL (6.4-8.9) L 04/04/23 04:24 Albumin 3.2 g/dL (3.2-5.5) 04/04/23 04:24 Globulin 2.6 g/dL (2.1-4.2) 04/04/23 04:24 Albumin/Globulin Ratio 1.2 (1.0-2.2) 04/04/23 04:24 Triglycerides 108 mg/dL (48-352) 04/03/23 05:24 Cholesterol 179 mg/dL (-200) 04/03/23 05:24 LDL Cholesterol, Calc 88 mg/dL (-129) 04/03/23 05:24 VLDL Cholesterol 22 mg/dL 04/03/23 05:24 HDL Cholesterol 69 mg/dL (60-) 04/03/23 05:24 LDL/HDL Ratio 1.3 (<3.6) 04/03/23 05:24 Cholesterol/HDL Ratio 2.6 (<5.0) 04/03/23 05:24 TSH 0.54 uIU/mL (0.34-5.60) 04/03/23 05:24 Nasal Adenovirus (PCR) NOT DETECTED 04/02/23 17:07 Nasal B. parapertussis DNA (PCR) NOT DETECTED 04/02/23 17:07 Nasal Coronavir 229E PCR NOT DETECTED 04/02/23 17:07 Nasal Coronavir HKU1 PCR NOT DETECTED 04/02/23 17:07 Nasal Coronavir NL63 PCR NOT DETECTED 04/02/23 17:07 Nasal Coronavir OC43 PCR NOT DETECTED 04/02/23 17:07 Nasal Enterovir/Rhinovir PCR NOT DETECTED 04/02/23 17:07 Nasal Influenza B PCR NOT DETECTED 04/02/23 17:07 Nasal Influenza A PCR NOT DETECTED 04/02/23 17:07 Nasal Parainfluen 1 PCR NOT DETECTED 04/02/23 17:07 Nasal Parainfluen 2 PCR NOT DETECTED 04/02/23 17:07 Nasal Parainfluen 3 PCR NOT DETECTED 04/02/23 17:07 Nasal Parainfluen 4 PCR NOT DETECTED 04/02/23 17:07 Nasal RSV (PCR) NOT DETECTED 04/02/23 17:07 Nasal Screen MRSA (PCR) NEGATIVE (NEGATIVE) 04/03/23 05:15 Nasal B.pertussis DNA PCR NOT DETECTED 04/02/23 17:07 Nasal C.pneumoniae (PCR) NOT DETECTED 04/02/23 17:07 Lenin Human Metapneumo PCR NOT DETECTED 04/02/23 17:07 Nasal M.pneumoniae (PCR) NOT DETECTED 04/02/23 17:07 Nasal SARS-CoV-2 (PCR) NOT DETECTED 04/02/23 17:07 Ethyl Alcohol < 10.0 mg/dL 04/02/23 17:00 - Procedures Procedures: Procedures CATARAC PHACOEMULS/ASPIR (07/16/14) EXCISION OF ASCENDING COLON, ENDO (08/21/18) EXCISION OF DESCENDING COLON, ENDO (08/21/18) EXCISION OF SIGMOID COLON, ENDO (08/21/18) EXCISION OF TRANSVERSE COLON, ENDO (08/21/18) INSERT LENS AT CATAR EXT (07/16/14) REPLACEMENT OF RIGHT LENS WITH SYNTH SUB, PERC APPROACH (12/24/14)
[2023-04-23] MEDS ORDERED: ACETAMINOPHEN 325 MG TABLET PO PRN (11:34)
[2023-04-23] MEDS ORDERED: METOCLOPRAMIDE 10 MG TABLET PO PRN (12:49)
--- NOTE | 2023-04-23 12:57 | PROVIDER PROGRESS NOTE ---
Assessment/Plan - Problem List (1) Orthostatic hypotension Assessment/Plan: His symptomatic orthostatic hypotension has prolonged this hospitalization All of patient's blood pressure medicines have been discontinued. He was started on daily Flurinef 0.1 mg daily and put on Midodrine with dose slowly increased Renin level and aldosterone level were checked, these are send out labs and are still pending He has not been asymptomatic without dizziness for several days now, despite slight orthostasis Plan: I cancelled orthostatic VS checks Cont Flurinef Cont Midodrine at 7.5 mg tid w/ meals Cont working (walking further) with PT and OT, he has only ambulated ~10 ft max I will D/C his iv today Patient is now medically cleared for transfer to SNF for rehab. had started to arrange for a SNF, but has had many facilities turn him down (due to alcohol abuse Hx) Patient must remain in the hospital until a safe discharge to a SNF is available. Patient is medically clear for lower level of care. (2) Acute respiratory failure with hypoxia Assessment/Plan: Mr. England was admitted with acute respiratory failure secondary to COPD exacerbation and pneumonia. He currently is at his baseline. During this hospitalization we attempted to qualify him for bilevel positive airway pressure therapy, unfortunately, he did not qualify. Plan: He is oxygen dependent and requires continuous 2 to 3 L/min by nasal cannula (3) COPD exacerbation Patient currently near baseline. Plan: Continue Pulmicort kathy BID, and DuoNeb prn I started to taper oral Prednisone from 20 mg daily to 15 mg daily, as of 04/20/23. I plan a slow taper over several weeks. (4) Nausea He continues to have intermittent and rare episodes of nausea after eating. He has had that for years and does not see a pattern Plan: PRN Reglan will be tried, in case this is gastroparesis, as per recommendation from [employer] (5) Tobacco use As per Hx. Plan: Nicotone patch prn Patient counseled to quit smoking. (6) Community acquired Pneumonia Resolved. Patient has completed course of ceftriaxone and azithromycin. (7) Alcohol withdrawal Resolved Cont mvi, thiamine (8) Alcohol abuse He drank whiskey. He was in significant alcohol withdrawal at admission. Alcohol withdrawal has resolved. (9) Prerenal azotemia Resolved. Patient appears to be at his baseline with BUN/creat. (10) Hx HTN Assessment/Plan: Losartan discontinued due to new onset of dizziness/lightheadedness and documented orthostasis upon standing. Metoprolol also discontinued. (11) Hyponatremia RESOLVED (12) Thrombocytosis RESOLVED (13) AMS RESOLVED - Current Meds Current Meds: Current Medications Generic Name Dose Route Start Last Admin Trade Name Freq PRN Reason Stop Dose Admin Albuterol 2.5 mg 04/03/23 03:54 04/19/23 19:26 Albuterol Neb 2.5 Mg/3 Ml INH 2.5 mg RTQ4H PRN Administration Wheezing Albuterol/Ipratropium 3 ml 04/17/23 12:33 04/23/23 11:10 Ipratropium/Albuterol 3 Ml Neb INH 3 ml RTQID PRN Administration Wheezing Aspirin 81 mg 04/03/23 09:00 04/23/23 08:27 Aspirin Ec 81 Mg Tablet PO 81 mg DAILY KATHY Administration Budesonide 0.5 mg 04/03/23 19:00 04/23/23 06:05 Budesonide 0.5 Mg/2 Ml Neb INH 0.5 mg RTBID KATHY Administration Cholecalciferol 25 mcg 04/03/23 09:00 04/23/23 07:47 Cholecalciferol 25 Mcg Tablet PO 25 mcg DAILY KATHY Administration Docusate Sodium 250 - 500 mg 04/07/23 13:00 04/23/23 07:47 Docusate Sodium 250 Mg Capsule PO 250 mg DAILY KATHY Administration Enoxaparin Sodium 40 mg 04/04/23 09:00 04/23/23 07:45 Enoxaparin 40 Mg/0.4 Ml Syringe SUBQ 40 mg DAILY KATHY Administration Fludrocortisone Acetate 0.1 mg 04/16/23 09:00 04/23/23 07:47 Fludrocortisone 0.1 Mg Tablet PO 0.1 mg DAILY KATHY Administration Formoterol Fumarate 20 mcg 04/03/23 19:00 04/23/23 06:05 Formoterol Fumarate Neb 20 Mcg/2 Ml INH 20 mcg RTBID KATHY Administration Guaifenesin 600 mg 04/03/23 09:00 04/23/23 07:47 Guaifenesin 600 Mg Tablet PO 600 mg BID KATHY Administration Guaifenesin/Codeine Phosphate 5 ml 04/07/23 19:00 04/14/23 18:01 Guaifenesin/Codeine 5 Ml Udc PO 5 ml Q6HR PRN Administration Cough Magnesium Oxide 400 mg 04/03/23 09:00 04/23/23 07:48 Magnesium Oxide 400 Mg Tablet PO 400 mg DAILY KATHY Administration Midodrine 7.5 mg 04/20/23 12:00 04/23/23 07:47 Midodrine 2.5 Mg Tablet PO 7.5 mg TIDWM KATHY Administration Multivitamins 1 tab 04/03/23 08:00 04/23/23 07:46 Multivitamin Tablet PO 1 tab DAILYWM KATHY Administration Pantoprazole Sodium 40 mg 04/05/23 08:00 04/23/23 07:46 Pantoprazole 40 Mg Tablet PO 40 mg QDBREAKFAST KATHY Administration Polyethylene Glycol 17 gm 04/07/23 13:00 04/23/23 07:44 Polyethylene Glycol 3350 17 Gm Packet PO 17 gm DAILY KATHY Administration Prednisone 15 mg 04/21/23 08:00 04/23/23 07:46 Prednisone 5 Mg Tablet PO 15 mg DAILYWM KATHY Administration Senna 8.6 - 17.2 mg 04/07/23 13:00 04/23/23 07:46 Senna 8.6 Mg Tablet PO 8.6 mg DAILY KATHY Administration Sertraline HCl 100 mg 04/04/23 12:00 04/23/23 07:48 Sertraline 25 Mg Tablet PO 100 mg DAILY KATHY Administration Thiamine HCl 100 mg 04/05/23 11:00 04/23/23 07:46 Thiamine 100 Mg Tablet PO 100 mg DAILY KATHY Administration Trazodone HCl 100 mg 04/04/23 11:52 04/22/23 21:10 Trazodone 50 Mg Tablet PO 100 mg HS PRN Administration Insomnia - Lab Result Fish Bone Diagrams: 04/21/23 10:30 04/21/23 10:30 - Additional Planning My Orders: My Active Orders 04/23/23 11:34 Acetaminophen [Tylenol] 650 mg PO Q4HR PRN 04/23/23 12:49 Metoclopramide [Reglan] 10 mg PO TID PRN 04/23/23 12:50 IV Discontinuation [RC] .ONCE 04/23/23 21:00 oxyCODONE [Roxicodone] 5 mg PO BID 04/24/23 05:00 BMP - BASIC METABOLIC PANEL [CHEM] DAILYLAB CBC - COMP BLD CT W/AUTO DIFF [HEME] DAILYLAB MAGNESIUM [CHEM] DAILYLAB Subjective - Subjective Patient Reports: Resting Comfortably, No Complaints Objective Vital Signs: Vital Signs - 24 hr 04/22/23 04/22/23 04/22/23 15:39 17:53 17:55 Temperature 37.1 C Heart Rate 69 Heart Rate [ 77 Brachial] Respiratory 16 17 Rate Blood Pressure 130/70 [Right Brachial artery] O2 Saturation 96 If not protocol 2 2 2 : Oxygen Flow, liters/minute 04/23/23 04/23/23 04/23/23 00:18 06:05 08:20 Temperature 37.1 C 36.7 C Heart Rate 73 Heart Rate [ 79 81 Brachial] Respiratory 20 18 18 Rate Blood Pressure 122/61 114/60 [Right Brachial artery] O2 Saturation 96 95 If not protocol 2 3 2 : Oxygen Flow, liters/minute Oxygen O2 Source [With Activity] Nasal cannula O2 Source Nasal cannula Oxygen Flow Rate 2 I&O (Last 24 Hrs): Intake and Output Totals x24h 04/21/23 04/22/23 04/23/23 23:59 23:59 23:59 Intake Total 1480 1810 1634 Output Total 1500 1865 1275 Balance -20 -55 359 General: Alert, Other (Appears better groomed) HEENT: Mucous membr. moist/pink Neck: Supple Neuro: Alert, Non Focal Cardiovascular: Regular rate, No murmurs Respiratory: No respiratory distress Abdomen: Normal bowel sounds, Soft Extremities: No clubbing, No edema, No tenderness/swelling - Results Results: Laboratory Results WBC 13.7 x10^3/uL (4.8-10.8) H 04/21/23 10:30 RBC 2.60 10^6/uL (4.70-6.10) L 04/21/23 10:30 Hgb 7.5 g/dL (14.0-18.0) L 04/21/23 10:30 Hct 24.0 % (42.0-52.0) L 04/21/23 10:30 MCV 92.3 fL (80.0-94.0) 04/21/23 10:30 MCH 28.8 pg (27.0-31.0) 04/21/23 10:30 MCHC 31.3 g/dL (32.0-36.0) L 04/21/23 10:30 RDW 13.6 % (12.0-15.0) 04/21/23 10:30 Plt Count 332 10^3/uL (130-450) 04/21/23 10:30 MPV 8.4 fL (7.4-11.4) 04/21/23 10:30 Neut # (Auto) 10.9 10^3/uL (1.5-6.6) H 04/21/23 10:30 Lymph # (Auto) 1.4 10^3/uL (1.5-3.5) L 04/21/23 10:30 [place] # (Auto) 0.9 10^3/uL (0.0-1.0) 04/21/23 10:30 Eos # (Auto) 0.3 10^3/uL (0.0-0.7) 04/21/23 10:30 Baso # (Auto) 0.1 10^3/uL (0.0-0.1) 04/21/23 10:30 Absolute Nucleated RBC 0.00 x10^3/uL 04/21/23 10:30 Total Counted 100 04/10/23 05:32 Band Neuts % (Manual) 1 % (0-10) 04/10/23 05:32 Reactive Lymphs % (Man) 3 % 04/05/23 10:25 Abnorm Lymph % (Manual) 0 % 04/10/23 05:32 Metamyelocytes % 2 % (-0) H 04/05/23 04:41 Myelocytes % 1 % (-0) H 04/05/23 10:25 Nucleated RBC % 0.0 /100WBC 04/21/23 10:30 Neutrophils # (Manual) 18.3 10^3/uL (1.5-6.6) H 04/10/23 05:32 Lymphocytes # (Manual) 1.7 10^3/uL (1.5-3.5) 04/10/23 05:32 Monocytes # (Manual) 1.5 10^3/uL (0.0-1.0) H 04/10/23 05:32 Eosinophils # (Manual) 0.0 10^3/uL (0-0.7) 04/10/23 05:32 Basophils # (Manual) 0.0 10^3/uL (0-0.1) 04/10/23 05:32 Differential Comment MANUAL DIFFERENTIAL 04/10/23 05:32 Manual Slide Review Indicated 04/13/23 10:37 Platelet Estimate NORMAL (130-450,000) (NORMAL) 04/13/23 10:37 Platelet Morphology NORMAL APPEARANCE (NORMAL) 04/13/23 10:37 RBC Morph Micro Appear 1+ STOMATOCYTES (NORMAL) 04/13/23 10:37 PT 12.1 secs (9.9-12.6) 04/04/23 04:24 INR 1.1 (0.8-1.2) 04/04/23 04:24 Bld Gas Analysis Time 0646 04/05/23 06:46 Sample Site RIGHT RADIAL 04/05/23 06:46 ABG pH 7.39 (7.35-7.45) 04/05/23 06:46 ABG pCO2 67 mmHg (34-45) H* 04/05/23 06:46 ABG pO2 135 mmHg (80-100) H 04/05/23 06:46 ABG HCO3 39.4 mmol/L (22.0-26.0) H 04/05/23 06:46 ABG Total CO2 41.5 MMOL/L (21.0-29.0) H* 04/05/23 06:46 ABG O2 Saturation 99 % (94-98) H 04/05/23 06:46 ABG Base Excess 12.2 mmol/L (-2.0-3.0) H 04/05/23 06:46 Ganga Test POSITIVE 04/05/23 06:46 VBG pH 7.435 (7.31-7.41) H 04/08/23 04:30 VBG pCO2 71.7 mmHg (41-51) H 04/03/23 05:24 VBG pO2 56.5 mmHg (25-47) H 04/03/23 05:24 VBG HCO3 31.7 mmol/L (23-28) H 04/03/23 05:24 VBG Total CO2 33.9 mmol/L (24-29) H 04/03/23 05:24 VBG O2 Saturation 87.8 % (60-80) H 04/03/23 05:24 VBG Base Excess 2.8 mmol/L (-2 - +2) H 04/03/23 05:24 Ionized Calcium 1.12 mmol/L (1.15-1.33) L 04/08/23 04:30 Respiration Rate 14 b/min 04/03/23 12:20 O2 Delivery Device BiPAP 04/05/23 06:46 FiO2 40.00 04/05/23 06:46 EPAP 5 cmH2O 04/05/23 06:46 IPAP 12 cmH2O 04/05/23 06:46 Sodium 140 mmol/L (135-145) 04/21/23 10:30 Potassium 3.9 mmol/L (3.5-4.5) 04/21/23 10:30 Chloride 104 mmol/L (101-111) 04/21/23 10:30 Carbon Dioxide 30 mmol/L (21-32) 04/21/23 10:30 Anion Gap 6.0 (6-13) 04/21/23 10:30 BUN 22 mg/dL (6-20) H 04/21/23 10:30 Creatinine 0.9 mg/dL (0.6-1.3) 04/21/23 10:30 Estimated GFR (MDRD) 84 (>89) L 04/21/23 10:30 Glucose 131 mg/dL (74-104) H 04/21/23 10:30 Estimat Average Glucose 114 mg/dL (70-100) H 04/03/23 05:24 Hemoglobin A1c % 5.6 % (4.27-6.07) 04/03/23 05:24 Lactic Acid 0.5 mmol/L (0.5-2.2) 04/02/23 17:00 Calcium 8.9 mg/dL (8.5-10.3) 04/21/23 10:30 Phosphorus 3.7 mg/dL (2.5-5.0) 04/13/23 10:37 Magnesium 2.0 mg/dL (1.7-2.3) 04/13/23 10:37 Total Bilirubin 0.2 mg/dL (0.2-1.0) 04/04/23 04:24 AST 10 IU/L (10-42) 04/04/23 04:24 ALT 14 IU/L (10-60) 04/04/23 04:24 Alkaline Phosphatase 52 IU/L (42-121) 04/04/23 04:24 Ammonia 32.0 umol/L (18-72) 04/03/23 06:15 Lactate Dehydrogenase 112 IU/L (140-271) L 04/03/23 05:24 Troponin I High Sens 7.1 ng/L (2.3-19.7) 04/06/23 05:00 Total Protein 5.8 g/dL (6.4-8.9) L 04/04/23 04:24 Albumin 3.2 g/dL (3.2-5.5) 04/04/23 04:24 Globulin 2.6 g/dL (2.1-4.2) 04/04/23 04:24 Albumin/Globulin Ratio 1.2 (1.0-2.2) 04/04/23 04:24 Triglycerides 108 mg/dL (48-352) 04/03/23 05:24 Cholesterol 179 mg/dL (-200) 04/03/23 05:24 LDL Cholesterol, Calc 88 mg/dL (-129) 04/03/23 05:24 VLDL Cholesterol 22 mg/dL 04/03/23 05:24 HDL Cholesterol 69 mg/dL (60-) 04/03/23 05:24 LDL/HDL Ratio 1.3 (<3.6) 04/03/23 05:24 Cholesterol/HDL Ratio 2.6 (<5.0) 04/03/23 05:24 TSH 0.54 uIU/mL (0.34-5.60) 04/03/23 05:24 Nasal Adenovirus (PCR) NOT DETECTED 04/02/23 17:07 Nasal B. parapertussis DNA (PCR) NOT DETECTED 04/02/23 17:07 Nasal Coronavir 229E PCR NOT DETECTED 04/02/23 17:07 Nasal Coronavir HKU1 PCR NOT DETECTED 04/02/23 17:07 Nasal Coronavir NL63 PCR NOT DETECTED 04/02/23 17:07 Nasal Coronavir OC43 PCR NOT DETECTED 04/02/23 17:07 Nasal Enterovir/Rhinovir PCR NOT DETECTED 04/02/23 17:07 Nasal Influenza B PCR NOT DETECTED 04/02/23 17:07 Nasal Influenza A PCR NOT DETECTED 04/02/23 17:07 Nasal Parainfluen 1 PCR NOT DETECTED 04/02/23 17:07 Nasal Parainfluen 2 PCR NOT DETECTED 04/02/23 17:07 Nasal Parainfluen 3 PCR NOT DETECTED 04/02/23 17:07 Nasal Parainfluen 4 PCR NOT DETECTED 04/02/23 17:07 Nasal RSV (PCR) NOT DETECTED 04/02/23 17:07 Nasal Screen MRSA (PCR) NEGATIVE (NEGATIVE) 04/03/23 05:15 Nasal B.pertussis DNA PCR NOT DETECTED 04/02/23 17:07 Nasal C.pneumoniae (PCR) NOT DETECTED 04/02/23 17:07 Lenin Human Metapneumo PCR NOT DETECTED 04/02/23 17:07 Nasal M.pneumoniae (PCR) NOT DETECTED 04/02/23 17:07 Nasal SARS-CoV-2 (PCR) NOT DETECTED 04/02/23 17:07 Ethyl Alcohol < 10.0 mg/dL 04/02/23 17:00 - Procedures Procedures: Procedures CATARAC PHACOEMULS/ASPIR (07/16/14) EXCISION OF ASCENDING COLON, ENDO (08/21/18) EXCISION OF DESCENDING COLON, ENDO (08/21/18) EXCISION OF SIGMOID COLON, ENDO (08/21/18) EXCISION OF TRANSVERSE COLON, ENDO (08/21/18) INSERT LENS AT CATAR EXT (07/16/14) REPLACEMENT OF RIGHT LENS WITH SYNTH SUB, PERC APPROACH (12/24/14)
[2023-04-23] MEDS: oxyCODONE 5 MG TABLET PO SCH (20:59)
[2023-04-24 05:39] LABS: BASOPHILS # (AUTO) 0.1 10^3/uL (0.0-0.1); BASOPHILS % (AUTO) 0.9 %; EOSINOPHILS # (AUTO) 0.3 10^3/uL (0.0-0.7); HCT - HEMATOCRIT 22.7 % (42.0-52.0); LYMPHOCYTES # (AUTO) 2.5 10^3/uL (1.5-3.5); LYMPHOCYTES % (AUTO) 27.2 %; MEAN CORPUSCULAR HEMOGLOBIN 28.1 pg (27.0-31.0); MEAN CORPUSCULAR HGB CONC 30.8 g/dL (32.0-36.0); MEAN CORPUSCULAR VOLUME 91.2 fL (80.0-94.0); MEAN PLATELET VOLUME 8.8 fL (7.4-11.4); MONOCYTES # (AUTO) 0.8 10^3/uL (0.0-1.0); MONOCYTES % (AUTO) 9.2 %; NEUTROPHILS # (AUTO) 5.4 10^3/uL (1.5-6.6); NEUTROPHILS % (AUTO) 59.3 %; PLT - PLATELET COUNT 342 10^3/uL (130-450); RED BLOOD COUNT 2.49 10^6/uL (4.70-6.10); RED CELL DISTRIBUTION WIDTH 13.6 % (12.0-15.0)
[2023-04-24 05:57] LABS: CALCIUM 8.6 mg/dL (8.5-10.3); CREATININE 0.8 mg/dL (0.6-1.3); MAGNESIUM 1.9 mg/dL (1.7-2.3); POTASSIUM 3.7 mmol/L (3.5-4.5)
--- NOTE | 2023-04-24 13:02 | PROVIDER PROGRESS NOTE ---
Subjective - Prog Note Date Prog Note Date: 04/24/23 Prog Note Time: 12:58 - Subjective Pt reports feeling: Improved Subjective: Pt is alert and oriented X4, has not noted any changes in his breathing, denies any dizziness or pain. Reports sleeping well last night, able to eat breakfast this morning. Objective - Vital Signs/Intake & Output Reviewed Vital Signs: Yes Vital Signs: Vital Signs x48h Temp Pulse Resp BP Pulse Ox O2 Flow Rate 04/24/23 09:08 37.2 C 85 18 109/53 L 96 2 04/24/23 07:00 2 04/24/23 05:32 36.8 C 74 16 97/55 L 97 2 Intake & Output: Intake & Output 04/21/23 04/22/23 04/23/23 04/24/23 23:59 23:59 23:59 23:59 Intake Total 1480 1810 2841 474 Output Total 1500 1865 2600 450 Balance -20 -55 241 24 - Objective General Appearance: positive: No acute distress Eyes Bilateral: positive: PERRL, EOMI ENT: positive: ENT inspection nml Neck: positive: Nml inspection, No JVD Respiratory: positive: No respiratory distress, Breath sounds nml Cardiovascular: positive: Regular rate & rhythm, No murmur Peripheral Pulses: 2+ Radial (R), 2+ Radial (L), 2+ Popliteal (R), 2+ Popliteal (L) Abdomen: positive: Non-tender, Other (Large ventral hernia present.) Skin: positive: Color nml, No rash, Cyanosis Extremities: positive: Non-tender, No pedal edema Neurologic/Psychiatric: positive: Oriented x3, Sensation nml, Mood/affect nml - Lab Results Fish Bones: 04/24/23 13:59 04/24/23 05:27 Other Labs: Lab Results x24hrs 04/24/23 04/24/23 04/16/23 Range/Units 05:27 05:27 04:59 WBC 9.0 (4.8-10.8) x10^3/uL RBC 2.49 L (4.70-6.10) 10^6/uL Hgb 7.0 L* (14.0-18.0) g/dL Hct 22.7 L (42.0-52.0) % MCV 91.2 (80.0-94.0) fL MCH 28.1 (27.0-31.0) pg MCHC 30.8 L (32.0-36.0) g/dL RDW 13.6 (12.0-15.0) % Plt Count 342 (130-450) 10^3/uL MPV 8.8 (7.4-11.4) fL Neut # (Auto) 5.4 (1.5-6.6) 10^3/uL Lymph # (Auto) 2.5 (1.5-3.5) 10^3/uL [place] # (Auto) 0.8 (0.0-1.0) 10^3/uL Eos # (Auto) 0.3 (0.0-0.7) 10^3/uL Baso # (Auto) 0.1 (0.0-0.1) 10^3/uL Absolute Nucleated RBC 0.00 x10^3/uL Nucleated RBC % 0.0 /100WBC Sodium 141 (135-145) mmol/L Potassium 3.7 (3.5-4.5) mmol/L Chloride 105 (101-111) mmol/L Carbon Dioxide 31 (21-32) mmol/L Anion Gap 5.0 L (6-13) BUN 20 (6-20) mg/dL Creatinine 0.8 (0.6-1.3) mg/dL Estimated GFR (MDRD) 96 (>89) Glucose 101 (74-104) mg/dL Calcium 8.6 (8.5-10.3) mg/dL Magnesium 1.9 (1.7-2.3) mg/dL Renin Activity 3.807 (0.167-5.380) ng/mL/hr Aldosterone (0.0-30.0) ng/dL 04/16/23 Range/Units 04:59 WBC (4.8-10.8) x10^3/uL RBC (4.70-6.10) 10^6/uL Hgb (14.0-18.0) g/dL Hct (42.0-52.0) % MCV (80.0-94.0) fL MCH (27.0-31.0) pg MCHC (32.0-36.0) g/dL RDW (12.0-15.0) % Plt Count (130-450) 10^3/uL MPV (7.4-11.4) fL Neut # (Auto) (1.5-6.6) 10^3/uL Lymph # (Auto) (1.5-3.5) 10^3/uL [place] # (Auto) (0.0-1.0) 10^3/uL Eos # (Auto) (0.0-0.7) 10^3/uL Baso # (Auto) (0.0-0.1) 10^3/uL Absolute Nucleated RBC x10^3/uL Nucleated RBC % /100WBC Sodium (135-145) mmol/L Potassium (3.5-4.5) mmol/L Chloride (101-111) mmol/L Carbon Dioxide (21-32) mmol/L Anion Gap (6-13) BUN (6-20) mg/dL Creatinine (0.6-1.3) mg/dL Estimated GFR (MDRD) (>89) Glucose (74-104) mg/dL Calcium (8.5-10.3) mg/dL Magnesium (1.7-2.3) mg/dL Renin Activity (0.167-5.380) ng/mL/hr Aldosterone 2.1 (0.0-30.0) ng/dL Assessment/Plan - Problem List (1) Anemia Impression: Critical lab result this morning, hemoglobin 7.0 at 05:27. Increased to 7.6 at 13:59. Blood transfusion ordered. Pt denies any MCKEON, light headedness, dizziness, weakness. (2) Orthostatic hypotension Impression: Pt was having a series of symptomatic orthostatic hypotension episodes which prolonged hospital stay. Orthostatic vital sign checks have now been discontinued. Stopped pt's BP meds and started on 01.mg flurinef daily and midodrine 7.5mg TID w/ meals. Sitting right arm BP today 143/73. Plan: -Cont flurinef 0.1mg daily. -Cont midodrine 7.5mg TID w/ meals. -Continue working with PT and OT to improve walking. Last able to walk only 10 ft. -Waiting to be cleared to go to SNF for rehab. Having issues finding a place due to Hx of alcohol use. (3) Acute respiratory failure with hypoxia Impression: Pt admitted for respiratory failure with hypoxia secondary to COPD exacerbation and PNA. Currently at baseline. Pt has not been able to qualify for bi level positive airway pressure. Pt uses 2-3L of continuous O2 at baseline. (4) CAP (community acquired pneumonia) Impression: RESOLVED with ceftriaxone and azithromycin (5) Altered mental status Impression: RESOLVED (6) COPD exacerbation Impression: Currently near baseline. Continue pulmicord BID, duoneb as needed. Tapering prednisone 20mg to 15mg (7) Thrombocytosis Impression: RESOLVED (8) Prerenal azotemia Impression: Baseline BUN and creatinine (9) Alcohol use Impression: No longer having withdrawal sx. Has baseline tremors to bilat hands. Continue thiamine (10) Tobacco use Impression: Counseled on quitting tobacco use. Attempting nicotine patch. (11) Nausea Impression: Denies nausea, able to eat breakfast this morning. (12) Hyponatremia Impression: RESOLVED (13) Hypertension Impression: Losartan and metoprolol had been discontinued due to new onset of dizziness and light headedness as well as orthostatic when standing.
[2023-04-24 14:05] LABS: HCT - HEMATOCRIT 24.7 % (42.0-52.0); HGB - HEMOGLOBIN 7.6 g/dL (14.0-18.0)
[2023-04-24] MEDS ORDERED: SODIUM CHLORIDE 0.9% 500 ML IV ONE (16:41)
[2023-04-24 22:19] LABS: HCT - HEMATOCRIT 26.5 % (42.0-52.0); HGB - HEMOGLOBIN 8.2 g/dL (14.0-18.0)
--- NOTE | 2023-04-25 07:32 | DISCHARGE SUMMARY ---
<Flavio Cox - Last Filed: 04/25/23 10:22> Discharge Summary Admit Date: 04/02/23 Discharge Date: 04/25/23 Discharging Provider: Dr. Francisco Jalloh Code Status: Attempt Resuscitation Condition at Discharge: Good Discharge Disposition: SNF DC/Xfer Discharge [facility] P: [phone]. - DIAGNOSES Admission Diagnoses: Anemia Pt had critical lab reading 04-24-23 morning, hemoglobin 7.0. Increased to 7.6 at 13:59. Blood transfusion administered. HgB increased to 8.6. Pt denies any sx, no MCKEON, light headedness, dizziness, weakness. Orthostatic hypotension Impression: Pt was having a series of symptomatic orthostatic hypotension episodes which prolonged hospital stay. Orthostatic vital sign checks have now been discontinued. Stopped pt's BP meds and started on 01.mg flurinef daily and midodrine 7.5mg TID w/ meals. BP 119/61. Acute respiratory failure with hypoxia Impression: Pt admitted for respiratory failure with hypoxia secondary to COPD exacerbation and PNA. Currently at baseline. Pt has not been able to qualify for bi level positive airway pressure. Pt uses 2-3L of continuous O2 at baseline. CAP (community acquired pneumonia) Impression: RESOLVED with ceftriaxone and azithromycin. Completed course of abx. Altered mental status Impression: RESOLVED COPD exacerbation Impression: Currently near baseline. Continue pulmicord BID, duoneb as needed. Tapering prednisone 20mg to 15mg Thrombocytosis Impression: RESOLVED Prerenal azotemia Impression: Baseline BUN and creatinine Alcohol use Impression: No longer having withdrawal sx. Continue thiamine Tobacco use Impression: Counseled on quitting tobacco use. Attempting nicotine patch. Nausea Impression: Denies nausea, able to eat breakfast this morning. Hyponatremia Impression: RESOLVED. Last sodium level was 141. Hypertension Impression: Losartan and metoprolol had been discontinued due to new onset of dizziness and light headedness as well as orthostatic when standing. - HPI History of Present Illness: 67 YOM w/ Hx of COPD, on 2 L of oxygen initially presented with 3 days of productive cough, SOB, found by daughter to be less responsive than usual, hy poxic in 80's at scene, glucose nml, drinking alcohol the past couple days. Pt treated with Bipap in ER as well as Ativan for withdrawal. - HOSPITAL COURSE Hospital Course: Pt found to have elevated WBC count in ER, mildly anemic, having respiratory alkalosis with CO2 retention. Treated with abx, steroid and neb as well as Bipap. Ativan was given for alcohol withdrawal. Patient was admitted for Acute on chronic repiratory failure with hypoximia lkely secondary COPD exacerbation and PNA. Also having AMS secondary to alcohol withdrawal. Pt was having orthostatic hypotension episodes that was prolonging his admission, BP meds were discontinued and was started on 01.mg flurinef daily and midodrine 7.5mg. Pt did have critical lab 04-24-23 morning of Hgb at 7.0, blood transfusion administered which bumped his Hgb to 8.2. Pt has been pleasant and feeling much better, alcohol withdrawal has subsided and is breathing well on 2L of nasal cannula. Denies any urinary symptoms, pain, shortness of breath, vision changes, or weakness. - ALLERGIES Allergies/Adverse Reactions: Allergies Allergy/AdvReac Type Severity Reaction Status Date / Time No Known Drug Allergies Allergy Verified 04/02/23 16:52 - MEDICATIONS Home Medications: Ambulatory Orders Medication Instructions Recorded Confirmed traZODone [Desyrel] 50 - 100 mg PO HS PRN 01/14/21 04/03/23 Furosemide [Lasix] 20 - 40 mg PO DAILY PRN 01/15/21 04/03/23 estradioL [Estrace] 2 mg PO DAILY 01/15/21 04/03/23 predniSONE [Deltasone] 10 mg PO DAILY 01/15/21 04/03/23 Albuterol 2.5 mg INH RTQ4H PRN #120 neb 01/19/21 04/03/23 Tiotropium [place] [Spiriva 1 cap INH DAILY 08/18/21 04/03/23 Handihaler] Potassium Chloride [Klor-Con 10] 20 meq PO DAILY 08/19/21 04/03/23 Aspirin EC [Ecotrin] 81 mg PO DAILY tab 04/11/23 Budesonide [Pulmicort] 0.5 mg INH RTBID ml 04/11/23 Cholecalciferol [Vitamin D3] 25 mcg PO DAILY tab 04/11/23 Formoterol Fumarate [Perforomist] 20 mcg INH RTBID ml 04/11/23 Multivitamin [Theragran] 1 tab PO DAILYWM tab 04/11/23 Sertraline [Zoloft] 100 mg PO DAILY tab 04/11/23 Thiamine [Vitamin B-1] 100 mg PO DAILY tab 04/11/23 Fludrocortisone [Florinef] 0.1 mg PO DAILY tab 04/25/23 LORazepam [Ativan] 0.5 mg PO DAILY PRN #10 tablet 04/25/23 Midodrine [ProAmatine] 7.5 mg PO TIDWM tab 04/25/23 - PHYSICAL EXAM AT DISCHARGE General Appearance: positive: No acute distress, Alert Eyes Bilateral: positive: PERRL, EOMI ENT: positive: ENT inspection nml Neck: positive: Nml inspection Respiratory: positive: Chest non-tender, No respiratory distress, Breath sounds nml Cardiovascular: positive: Regular rate & rhythm, No murmur Peripheral Pulses: positive: 2+ Abdomen: positive: Non-tender, Other (baseline ventral hernia present) Back: positive: Nml inspection Skin: positive: Color nml, Warm, Dry Extremities: positive: Non-tender Neurologic/Psychiatric: positive: Oriented x3 - LABS Result Diagrams: 04/24/23 22:15 04/24/23 05:27 - TIME SPENT Time Spent in Discharge (Minutes): 60 <Francisco Hernández - Last Filed: 04/25/23 11:22> Discharge Summary - HPI History of Present Illness: Attestation that the patient was seen and examined by me with a separate encounter after being seen by DNP student.. I reviewed the student's documentation including patient history, physical examination, laboratory, imaging, clinical assessment and treatment plan. I have discussed the management of the patient with the student, with the patient, There are no changes. - LABS Result Diagrams: 04/24/23 22:15 04/24/23 05:27 - TIME SPENT Time Spent in Discharge (Minutes): 28
--- NOTE | 2023-04-25 07:32 | Discharge Plan ---
"Discharge Plan for SNF / [facility] - Discharge Plan And Transition Orders Problem Reviewed?: Yes Disposition: 03 SNF DC/Xfer Condition: Good Allergies and Adverse Reactions: Allergies Allergy/AdvReac Type Severity Reaction Status Date / Time No Known Drug Allergies Allergy Verified 04/02/23 16:52 Health Concerns: Francisco England is a 67 admitted on April 03, 2023 with a chief complaint of shortness of breath weakness and cough.Workup in the emergency room revealed a leukocytosis of 26 K. Patient was admitted and treated for a COPD exacerbation with IV corticosteroids and bronchodilators. He was diagnosed with pneumonia and completed a course of treatment with ceftriaxone and azithromycin. His COPD exacerbation has resolved.Although I do not have any pulmonary function test to review patient most likely has severe COPD and is oxygen dependent. Hospital course was complicated by alcohol withdrawal and treatment was initiated with benzodiazepines using CIWA protocol.His alcohol withdrawal has resolved. His hospital course was complicated by orthostatic hypotension. All of his blood pressure medications have been discontinued and treatment was initiated with fludrocortisone and midadrine. His symptoms of dizziness and orthostatic hypotension have resolved. CBC obtained on April 21, 2023 revealed a decrease in his hematocrit from 30.5-24 and on April 24 his hematocrit was 22.7. Patient was transfused 1 unit of blood with an appropriate increase in his hematocrit to 24.7. He has no evidence of acute hemorrhage from any source. Recommend he have a CBC checked in 3 days. Please note that patient is on estradiol because he was considering going through a sex change. He is not sure if he wishes to proceed at this time and would recommend he discuss continuing the estradiol with his primary care provider once he leaves the [facility]. He is being transferred to a [facility] for physical rehabilitation. Plan of Treatment: Transfer to [facility] for treatment. Care Goals: To maintain current functionality and possibly improve enough to return to home. Assessment: (1) Acute respiratory failure with hypoxia Assessment/Plan: Assessment/Plan: Mr. England was admitted with acute respiratory failure secondary to COPD exacerbation and pneumonia. He currently is at his baseline. During this hospitalization we attempted to qualify him for bilevel positive airway pressure therapy, unfortunately, he did not qualify. He is oxygen dependent and requires 2 to 3 L/min by nasal cannula (2) COPD exacerbation Plan: Continue Solu-Medrol, Pulmicort and DuoNeb. Resolved. Patient currently near baseline. (3) Community acquired Pneumonia Plan: Resolved. Patient has completed course of ceftriaxone and azithromycin. (4) Alcohol withdrawal Resolved. Cont mvi, thiamine ivf (5) Alcohol abuse He drinks whiskey.He was in significant alcohol withdrawal at admission. Alcohol withdrawal has resolved. (6) Prerenal azotemia Assessment/Plan: Patient appears to be at his baseline. (7) HTN Assessment/Plan: Continue losartan (8) Nausea Assessment/Plan: Resolved. (9) Tobacco use As per Hx. Patient counseled to quit smoking. (10) Hyponatremia RESOLVED (11) Thrombocytosis RESOLVED (12) AMS RESOLVED Patient is medically cleard for disharge. - SNF / [facility]ENT[facility] Transition Orders Admit to (Facility): [facility] P: [phone]. Discharge Diagnosis: (1) Anemia chronic (2) Orthostatic hypotension- resolved (3) Acute respiratory failure with hypoxia- resolved (4) CAP (community acquired pneumonia)- resolved (5) Altered mental status - resolved (6) COPD exacerbation -resolved (7) Thrombocytosis- resolved (8) Prerenal azotemia - resolved (9) Alcohol use - chronic. No alcohol the last 22 days (10) Tobacco use - chronic. No tobacco for the last 22 days. (11) Nausea - intermittent. (12) Hyponatremia-Resolved (13) Hypertension - resolved. Medicare Certification Statement: I certify that [facility] care is medically necessary on a continuing basis for any of the conditions for which she/he is receiving care during hospitalization. Notify PCP of admission and forward orders to primary provider for signature. Weight on admission and: Weekly Other Notification Orders: Call PCP immediately if patient develops dyspnea, chest pain/tightness or edema. House Bowel Program: Yes Additional Bowel Program Orders: If no BM after 2 days, nurse may give M.O.M. 30ml PO PRN and/or ducolax Supp 1 ND and/or SANTO 250mg P.O., and/or senna 1-2 tabs PO. On day 3 nurse may give repeat above order until residents constipation is resolved. Annual Influenza Vaccine (between Nov 10 and June 09): Yes Two-step PPD per [facility] [phone] or approved exception documents: Yes Oxygen Orders: 2 LPM by nasal cannula Lab Tests or X-ray Orders: CBC in 3 days. Medication Orders: PLEASE REFER TO THE DISCHARGE MEDICATION LIST. Insulin Orders?: No - Medications New Prescriptions: LORazepam [Ativan] 0.5 mg PO ONCE PRN #10 tab PRN Reason: Anxiety - Diet Type: Geriatric Texture: Regular Liquids: Thin May have monthly special meal: Yes - Therapies | Activity Therapy: Evaluation | Treat if indicated: PT, OT Rehabilitation Potential: Maximize functional status, Return to independent living Activity: Activity as Tolerated Weight Bearing: Full Weight Assistance Devices: Walker, Cane Follow Up: Follow-up with Rochelle Crouch NP upon release from [facility]."
[2023-04-25 08:12] VITALS: BP 108/54; O2SAT 95
== END 2023-04-25 12:15 | DRG 189 ==
LOC: EDUNIT# → ED 16:46 → ICU 04-03 03:46 → MS2 04-08 10:13
PROVIDERS: ADMIT Student in an Organized Health Care Education/Training Program; ATTEND Internal Medicine
PROC: 30233N1 Transfusion of Nonautologous Red Blood Cells into Peripheral Vein, Percutaneous Approach (ICD-10-PCS; principal; 2023-04-24)
DX: J96.21 Acute and chronic respiratory failure with hypoxia (principal); J18.9 Pneumonia, unspecified organism; G92.8 Other toxic encephalopathy; F17.200 Nicotine dependence, unspecified, uncomplicated; R00.0 Tachycardia, unspecified; J44.0 Chronic obstructive pulmonary disease with (acute) lower respiratory infection; J44.1 Chronic obstructive pulmonary disease with (acute) exacerbation; F10.239 Alcohol dependence with withdrawal, unspecified; K43.9 Ventral hernia without obstruction or gangrene; I45.10 Unspecified right bundle-branch block; F10.139 Alcohol abuse with withdrawal, unspecified; E87.1 Hypo-osmolality and hyponatremia; F17.210 Nicotine dependence, cigarettes, uncomplicated; Z99.81 Dependence on supplemental oxygen; D75.839 Thrombocytosis, unspecified; R79.89 Other specified abnormal findings of blood chemistry; I10 Essential (primary) hypertension; I95.1 Orthostatic hypotension; D64.9 Anemia, unspecified; K29.70 Gastritis, unspecified, without bleeding
CPT/HCPCS: 36415; 36600; 71045; 71275; 80048; 80053; 80061; 82088; 82140; 82272; 82330; 82803; 83036; 83605; 83615; 83735; 84100; 84244; 84443; 84484; 85014; 85018; 85025; 85610; 86850; 86900; 86901; 86920; 87040; 87070; 87077; 87150; 87205; 87633; 87635; 93005; 94640; 94660; 96365; 96375; 96376; 97110; 97116; 97162; 97166; 97530; 97535; 99285; 99291; A9270; G0480; J1650; J2060; J3411; J7120; J7512; J7626; P9016; Q0162; Q9967; 80320; 82274; 83721

== ENCOUNTER 2023-06-15 13:08 | Outpatient (CLI) | payer MEDICARE ==
[2023-06-15 17:32] LABS: BASOPHILS # (AUTO) 0.2 10^3/uL (0.0-0.1); BASOPHILS % (AUTO) 1.3 %; EOSINOPHILS # (AUTO) 0.4 10^3/uL (0.0-0.7); EOSINOPHILS % (AUTO) 2.8 %; HCT - HEMATOCRIT 33.4 % (42.0-52.0); HGB - HEMOGLOBIN 9.2 g/dL (14.0-18.0); LYMPHOCYTES # (AUTO) 1.6 10^3/uL (1.5-3.5); LYMPHOCYTES % (AUTO) 12.4 %; MEAN CORPUSCULAR HEMOGLOBIN 24.7 pg (27.0-31.0); MEAN CORPUSCULAR HGB CONC 27.5 g/dL (32.0-36.0); MEAN CORPUSCULAR VOLUME 89.5 fL (80.0-94.0); MONOCYTES # (AUTO) 1.2 10^3/uL (0.0-1.0); MONOCYTES % (AUTO) 9.5 %; NEUTROPHILS # (AUTO) 9.2 10^3/uL (1.5-6.6); NEUTROPHILS % (AUTO) 72.1 %; PLT - PLATELET COUNT 602 10^3/uL (130-450); RED BLOOD COUNT 3.73 10^6/uL (4.70-6.10); RED CELL DISTRIBUTION WIDTH 18.6 % (12.0-15.0); WHITE BLOOD COUNT 12.7 x10^3/uL (4.8-10.8)
[2023-06-15 18:09] LABS: ALBUMIN 4.3 g/dL (3.2-5.5); BILIRUBIN,TOTAL 0.5 mg/dL (0.2-1.0); CALCIUM 9.6 mg/dL (8.5-10.3); POTASSIUM 3.6 mmol/L (3.5-4.5); TOTAL PROTEIN 6.5 g/dL (6.4-8.9)
[2023-06-15 18:10] LABS: PLATELET ESTIMATE, MANUAL INCREASED (>450,000) (NORMAL); PLATELET MORPHOLOGY NORMAL APPEARANCE (NORMAL); SLIDE REVIEW? Indicated
[2023-06-15 18:18] LABS: FERRITIN 9.9 ng/mL (23.9-336.2)
== END 2023-06-15 13:09 | disposition home or self-care (01) ==
LOC: LAB.N 13:08
PROVIDERS: ATTEND Nurse Practitioner Family
DX: D50.9 Iron deficiency anemia, unspecified (principal); Z02.89 Encounter for other administrative examinations; D72.829 Elevated white blood cell count, unspecified
CPT/HCPCS: 36415; 80053; 82728; 83540; 84466; 85025

== ENCOUNTER 2023-07-20 11:31 | Outpatient (CLI) | payer MEDICARE ==
[2023-07-20 18:01] LABS: BASOPHILS # (AUTO) 0.1 10^3/uL (0.0-0.1); BASOPHILS % (AUTO) 1.1 %; EOSINOPHILS # (AUTO) 0.2 10^3/uL (0.0-0.7); EOSINOPHILS % (AUTO) 1.9 %; HCT - HEMATOCRIT 39.4 % (42.0-52.0); HGB - HEMOGLOBIN 10.9 g/dL (14.0-18.0); LYMPHOCYTES # (AUTO) 1.9 10^3/uL (1.5-3.5); LYMPHOCYTES % (AUTO) 16.1 %; MEAN CORPUSCULAR HEMOGLOBIN 25.2 pg (27.0-31.0); MEAN CORPUSCULAR HGB CONC 27.7 g/dL (32.0-36.0); MEAN CORPUSCULAR VOLUME 91.2 fL (80.0-94.0); MEAN PLATELET VOLUME 10.5 fL (7.4-11.4); MONOCYTES # (AUTO) 1.4 10^3/uL (0.0-1.0); MONOCYTES % (AUTO) 11.5 %; NEUTROPHILS # (AUTO) 8.1 10^3/uL (1.5-6.6); NEUTROPHILS % (AUTO) 69.1 %; PLT - PLATELET COUNT 556 10^3/uL (130-450); RED BLOOD COUNT 4.32 10^6/uL (4.70-6.10); RED CELL DISTRIBUTION WIDTH 18.2 % (12.0-15.0); WHITE BLOOD COUNT 11.8 x10^3/uL (4.8-10.8)
== END 2023-07-20 11:32 | disposition home or self-care (01) ==
LOC: LAB.N 11:31
PROVIDERS: ATTEND Nurse Practitioner Family
DX: D50.9 Iron deficiency anemia, unspecified (principal)
CPT/HCPCS: 36415; 82728; 85025

== ENCOUNTER 2023-10-18 15:55 | Outpatient (CLI) | payer MEDICARE ==
[2023-10-18 17:51] LABS: BASOPHILS # (AUTO) 0.1 10^3/uL (0.0-0.1); BASOPHILS % (AUTO) 0.9 %; EOSINOPHILS # (AUTO) 0.1 10^3/uL (0.0-0.7); EOSINOPHILS % (AUTO) 0.5 %; HCT - HEMATOCRIT 38.1 % (42.0-52.0); HGB - HEMOGLOBIN 11.3 g/dL (14.0-18.0); LYMPHOCYTES # (AUTO) 0.8 10^3/uL (1.5-3.5); LYMPHOCYTES % (AUTO) 6.7 %; MEAN CORPUSCULAR HGB CONC 29.7 g/dL (32.0-36.0); MEAN CORPUSCULAR VOLUME 90.9 fL (80.0-94.0); MEAN PLATELET VOLUME 11.6 fL (7.4-11.4); MONOCYTES # (AUTO) 0.8 10^3/uL (0.0-1.0); NEUTROPHILS # (AUTO) 10.6 10^3/uL (1.5-6.6); NEUTROPHILS % (AUTO) 85.5 %; PLT - PLATELET COUNT 207 10^3/uL (130-450); RED BLOOD COUNT 4.19 10^6/uL (4.70-6.10); RED CELL DISTRIBUTION WIDTH 15.3 % (12.0-15.0); WHITE BLOOD COUNT 12.4 x10^3/uL (4.8-10.8)
[2023-10-18 18:25] LABS: FERRITIN 10.7 ng/mL (23.9-336.2)
[2023-10-18 18:38] LABS: CALCIUM 9.5 mg/dL (8.5-10.3); CREATININE 0.9 mg/dL (0.6-1.3); POTASSIUM 3.5 mmol/L (3.5-4.5)
== END 2023-10-18 15:56 | disposition home or self-care (01) ==
LOC: LAB.N 15:55
PROVIDERS: ATTEND Nurse Practitioner Family
DX: Z02.89 Encounter for other administrative examinations (principal); D50.9 Iron deficiency anemia, unspecified; Z79.890 Hormone replacement therapy; F64.9 Gender identity disorder, unspecified
CPT/HCPCS: 36415; 80048; 82670; 82728; 85025

== ENCOUNTER 2023-10-23 15:58 | Outpatient (CLI) | payer MEDICARE ==
[2023-10-23 21:11] LABS: CALCIUM 9.2 mg/dL (8.5-10.3); POTASSIUM 3.5 mmol/L (3.5-4.5)
== END 2023-10-23 15:59 | disposition home or self-care (01) ==
LOC: LAB.N 15:58
PROVIDERS: ATTEND Nurse Practitioner Family
DX: J44.1 Chronic obstructive pulmonary disease with (acute) exacerbation (principal)
CPT/HCPCS: 36415; 80048